=== PATIENT | male | born 1965 | race Caucasian/White ===

== ENCOUNTER 2023-12-08 10:03 | Emergency (ER) | payer OTHER, SELFPAY ==
--- NOTE | ~2023-12-08 | CT_ITS ---
EXAMINATION: CT lumbar spine wo con DATE: 12/08/2023 14:09 INDICATION: Low back pain TECHNIQUE: Computed tomography (CT) of the lumbar spine was performed without intravenous contrast. A utomated exposure control and iterative reconstruction technique were employed. The dose-length produ ct was 488.85 mGy-cm. COMPARISON: None FINDINGS: Alignment is normal. Vertebral body heights are normal. No fracture or pars intra-articular is defects.. Lucent hemangiomas with thickened internal vertical trabecular pattern at L1 and L4. Mi ld disc height loss at T12-L1. Remaining lumbar disc heights are normal. There are few diverticula al francoise the visualized sigmoid colon without adjacent comparison to suggest diverticulitis. Paravertebral soft tissues are unremarkable. The following disc levels are specifically discussed: T11-T12: The disc does not extend beyond the endplate margin. There is mild bilateral facet joint ost eoarthritis. There is no neural foraminal stenosis. There is no central canal stenosis. T12-L1: The disc does not extend beyond the endplate margin. There is mild bilateral facet joint oste oarthritis. There is no neural foraminal stenosis. There is no central canal stenosis. L1-L2: Disc is mildly bulging. There is mild bilateral facet joint osteoarthritis. There is no neural foraminal stenosis. There is no central canal stenosis. L2-L3: Disc is mildly bulging. There is mild bilateral facet joint osteoarthritis. There is mild bila teral neural foraminal stenosis. There is minimal central canal stenosis. L3-L4: Disc is mildly bulging. There is mild bilateral facet joint osteoarthritis. There is mild bila teral neural foraminal stenosis. There is minimal central canal stenosis. L4-L5: Disc is bulging. There is mild bilateral facet joint osteoarthritis. There is mild bilateral n eural foraminal stenosis. There is mild central canal stenosis. L5-S1: Disc is bulging. There is mild left and moderate right facet joint osteoarthritis. There is no neural foraminal stenosis. There is no central canal stenosis. IMPRESSION: 1. Mild lumbar spondylosis. No acute osseous abnormality. Reviewed, dictated and finalized at location A.
[2023-12-08 10:08] VITALS: BP 185/104; PULSE 90; RESP 18; TEMP 36.1; O2SAT 97
--- NOTE | 2023-12-08 13:19 | ED.BACK ---
HPI - Back Pain/Injury General Chief Complaint: Back Pain/Injury Stated Complaint: back pain Time Seen by Provider: 12/08/23 12:01 History of Present Illness HPI Narrative: Patient is a 58-year-old male presenting with low back pain. Patient states that approximately a month ago he bent over and lifted something heavy and felt a pop in his right lower back. Since that time he has had worsening right-sided lower back pain that sometimes shoots into his right hip and down his leg. No numbness or weakness, saddle anesthesia, bladder bowel incontinence, fevers. States that he had low back pain several years ago that was treated with tizanidine that he has been taking with minimal relief. Related Data Allergies Allergy/AdvReac Type Severity Reaction Status Date / Time No Known Allergies Allergy Unverified 03/31/17 10:34 Review of Systems Review of Systems: All systems reviewed & are unremarkable except as noted in HPI and below Exam Narrative: GENERAL: Well-appearing, in no acute distress, pleasant cooperative HEAD: Normocephalic, atraumatic. EYES: PERRLA and EOMI. ENT: Grossly unremarkable NECK: Supple. CHEST: No respiratory distress. HEART: Regular rate and rhythm EXTREMITIES: Normal range of motion. SKIN: Warm, dry, no rash. BACK: +tenderness lumbar spine into right paraspinal muscles and R upper buttocks NEURO: No focal deficits. Alert and oriented x3. 5/5 strength BLE, no sensory deficits PSYCH: Normal mood and affect. Course Vital Signs Vital signs: Vital Signs Oxygen Delivery Room Air 12/08/23 10:05 Temperature 98.4 F 12/08/23 15:15 Pulse Rate 82 12/08/23 15:15 Respiratory Rate 18 12/08/23 15:15 Blood Pressure 175/97 H 12/08/23 15:15 Pulse Oximetry 100 12/08/23 15:15 Oxygen Delivery Room Air 12/08/23 10:05 MDM - Back Pain/Injury MDM Narrative Medical decision making narrative: 58-year-old female presenting with lower back pain. Vitals stable. Exam remarkable for the above. Neurologically intact. Denies any red flag symptoms but given his age new onset low back pain, will obtain CT lumbar spine. Will treat with IM Toradol and p.o. Percocet. Likely discharge with Medrol Dosepak. CT lumbar spine without acute abnormalities. Patient is asking to go home which I think is reasonable. Will send for Medrol Dosepak, advised Tylenol as well. He can use as muscle relaxers as prescribed. Recommend close PCP follow-up. Appropriate return precautions given. Discharged in stable condition. Differential Diagnosis Differential diagnosis: Likely lumbar radiculopathy, sciatica and strain of lumbar region Medical Records Attestation: I reviewed the patient's medical records. Imaging Data Radiologist's impression: ITS Impressions Lumbar Spine CT 12/08/23 14:24 IMPRESSION: 1. Mild lumbar spondylosis. No acute osseous abnormality. Critical Care Time Critical Care Time Critical Care Time: No Discharge Plan Discharge Clinical Impression: Low back pain Patient Disposition: Home, Self-Care Condition: Stable Instructions: Antibiotic Form, Back Pain (ED) Additional Instructions: Please take the steroids as prescribed. We also recommend using Tylenol for pain control. You may use your muscle relaxers as prescribed. Follow-up closely with your PCP. If your symptoms suddenly worsen or other concerning symptoms return, please return to the ER. Prescriptions: New methylprednisolone [Medrol (Juaquin)] 4 mg tablets,dose pack See Rx Instructions .ROUTE .COMPLEX Qty: 21 0RF Rx Instructions: orally per package directions Follow-up/Referrals: PHYSICIAN,TILE SETTER SUPERVISOR [Primary Care Provider] -
[2023-12-08] MEDS: oxyCODONE/ACETAMINOPHEN (*CRX) 5-325 MG TABLET 1 TABLET PO (14:43)
[2023-12-08] MEDS: KETOROLAC 30 MG/ML VIAL (*BKC) IM (14:44)
[2023-12-08 15:15] VITALS: BP 175/97; PULSE 82; RESP 18; TEMP 36.9; O2SAT 100
== END 2023-12-08 15:16 | disposition home or self-care (01) ==
PROVIDERS: Emergency Provider Emergency Medicine; Referring Provider Emergency Medicine
DX: M54.50 Low back pain, unspecified (principal); M47.816 Spondylosis without myelopathy or radiculopathy, lumbar region
CPT/HCPCS: 72131; 96372; 99284; A9270; J1885

== ENCOUNTER 2025-02-01 08:48 | Inpatient (IN) | payer OTHER, SELFPAY ==
[2025-02-01] VITALS (11 sets, daily range): BP systolic 128–163; BP diastolic 80–96; PULSE 63–88; RESP 15–18; TEMP 35.7–36.4; O2SAT 95–99; BMI 25.7
--- NOTE | ~2025-02-01 | CT_ITS ---
CT of the Abdomen and Pelvis: Indication: Abdominal pain Technique: 2.5 mm axial scans were obtained through the abdomen and pelvis following intravenous adm inistration of 100 cc of Omnipaque 350. Dose reduction technique was used on this scan by utilizing a utomated exposure control and iterative reconstruction technique. The dose-length product (DLP) was 5 39.83 mGy-cm. Findings: Scans through the lung bases demonstrate right middle lobe atelectasis. The liver, spleen, pancreas, gallbladder, adrenals and kidneys are within normal limits. There are at herosclerotic calcifications of the aorta. No lymphadenopathy. There is wall thickening of sigmoid colon with mild pericolonic inflammatory change, compatible with acute sigmoid diverticulitis. No abscess or free air evident. No bowel obstruction. Images through the pelvis were performed. Urinary bladder unremarkable. No pelvic mass. No ascites. Impression: Acute sigmoid diverticulitis. No abscess or free air. Reviewed, dictated and finalized at location . Impression: Acute sigmoid diverticulitis. No abscess or free air.
--- OUTSIDE RECORDS SUMMARY | 2025-02-01 08:52 | XMS_ITS | Clinical Summary ---
Author Organization [facility] Address [address] [place] [address] Phone Care Team Providers Care Card Fixer Name Role Phone Unavailable Primary Care Provider Unavailabl e Allergies No known active allergies Medications losartan (COZAAR) 50 MG Tablet TAKE ONE TABLET BY MOUTH EVERY DAY FOR BLOOD PRESSURE 10/08/2023 Active Xarelto 20 MG Tablet TAKE ONE TABLET BY MOUTH EVERY DAY WITH FOOD 10/08/2023 Active Immunizations Immunization Administration Dates Next Due Influenza Vaccine, Quadrivalent, PF 07/02/2017 Social History Tobacco Use Types Packs/Day Years Used Date Smoking Tobacco: Never Smokeless Tobacco: Never Alcohol Use Standard Drinks/Week Comments Yes 0 (1 standard drink = 0.6 oz pur e alcohol) couple beers daily Sexually Active Control Partners Comments Never Sex and Gender Information Value Date Recorded Sex Assigned at Not on file Legal Sex Male 2:58 PM CDT Gender Identity Not on file Sexual Orientation Not on file Last Filed Vital Signs Vital Sign Reading Time Taken Comments Blood Pressure 138/82 10/10/2023 9:38 AM DIRECTOR SECURITY MANAGEMENT Pulse 82 10/10/2023 9:38 AM DIRECTOR SECURITY MANAGEMENT Temperature - - Respiratory Rate 20 10/10/2023 9:38 AM DIRECTOR SECURITY MANAGEMENT Oxygen Saturation 98% 10/10/2023 9:38 AM DIRECTOR SECURITY MANAGEMENT Inhaled Oxygen Concentration - - Weight 81.6 kg (180 lb) 10/10/2023 9:38 AM DIRECTOR SECURITY MANAGEMENT Height 180.3 cm (5' 11 ) 10/10/2023 9:38 AM DIRECTOR SECURITY MANAGEMENT Body Mass Index 25.1 10/10/2023 9:38 AM DIRECTOR SECURITY MANAGEMENT Plan of Treatment Health Maintenance Due Date Last Done Comments Hepatitis C Virus (HCV) Screening 1965 TdaP Immunization 1965 Colonoscopy 2009 Colorectal Cancer Screening 2009 Cologuard 2014 Immunochemical Fecal Occult Blood 2014 Pneumococcal Immunization (5 0+ years) (1 of 1 - PCV) 2014 Zoster Immunization (1 of 2) 2014 PSA Discussion 2019 Influenza Immunization (#1) 2024 07/02/2017 SARS-COV-2 Immunization ( season) 2024 04/24/2021, 03/27/2021 Respiratory Syncytial Virus (RSV) Immunization (Adult) (1 - 1-dose 75+ series) 2039 Hepatitis B Immunization Aged Out No longer eligible based on patient's age to complete this topic Meningococcal Immunization (ACWY) Aged Out No longer eligible b ased on patient's age to complete this topic Rotavirus Immunization Aged Out No lo nger eligible based on patient's age to complete this topic Insurance MEDICAID [facility]
--- OUTSIDE RECORDS SUMMARY | 2025-02-01 08:52 | XMS_ITS | Data Portability ---
Author Organization [facility] [employer] Main Office Address [address] [place] [address] Care Team Providers Care Drafter Mechanical Name Role Phone PHOENIX REMY Primary Care Provider [phone] PHOENIX REMY Referring Provider KOLTON ZAMUDIO General Surgeon Assessment No assessment recorded. Plan of Treatment Reminders Order Date Submit Date Provider Last Modified By Organization Details Last Modified Time Details Appointments None recorded . Lab urinalys is, dipstick 2022 023 [email or web address] [facility] [facility] [address], [place], [address], 3 10:05:00 Referral None recorded . Procedures None recorded . Surgeries None recorded . Imaging US, bladder 2022 023 [email or web address] [facility] [facility] [address], [place], [address], 3 10:06:08 Medication Orders None recorded . Patient TargetsNo targets recorded. Patient InstructionsNo instructions recorded. Reason for Referral None Reported. Results Created Date Observation Date Name Description Value Unit Range Abnormal Flag Note LastModifiedBy Organization Detail LastModifiedTime 05/01/20 23 05/01/2023 urina lysis , dipst ick Leukocytes (reference range: negative feli/ l) Negati ve Not Available [facility] [address] [facility] [address], [place], [address], 05/01/2023 09:50:17 05/01/20 23 05/01/2023 urina lysis , dipst ick Nitrite (reference rage: negative mg/dl) negati ve Not Available [facility] [address], [place], [address], 05/01/2023 09:50:17 05/01/20 23 05/01/2023 urina lysis , dipst ick Urobilinogen (reference range: 0.2-1 mg/dl) 0.2 Not Available [facility] [address], [place], [address], 05/01/2023 09:50:17 05/01/20 23 05/01/2023 urina lysis , dipst ick Protein (reference range: negative mg/dl) Small Not Available [facility] [address], [place], [address], 05/01/2023 09:50:17 05/01/20 23 05/01/2023 urina lysis , dipst ick pH (reference range: 5-7) 5.5 Not Available [facility] [address] [facility] [address], [place], [address], 05/01/2023 09:50:17 05/01/2005/01/2023 urina lysis , dipst ick Blood (reference range: negative Meño/ l) Negati ve Not Available [facility] [address] [facility] [address], [place], [address], 05/01/2023 09:50:17 05/01/2005/01/2023 urina lysis , dipst ick Specific [place] (reference range: 1.005-1.030) 1.020 Not Available [facility] [address], [place], [address], 05/01/2023 09:50:17 05/01/20 23 05/01/2023 urina lysis , dipst ick Ketone (reference range: negative mg/dl) Trace Not Available [facility] [place] [address], [place], [address], 05/01/2023 09:50:17 05/01/20 23 05/01/2023 urina lysis , dipst ick Bilirubin (reference range: negative mg/dl) Small Not Available [facility] [place] [address], [place], [address], 05/01/2023 09:50:17 05/01/20 23 05/01/2023 urina lysis , dipst ick Glucose (reference range: negative mg/dl) Negati ve Not Available [facility] [place] [address], [place], [address], 05/01/2023 09:50:17 05/01/20 23 05/01/2023 urina lysis , dipst ick Appearance Clear Not Available [facility] [place] [address], [place], [address], 05/01/2023 09:50:17 05/01/20 23 05/01/2023 urina lysis , dipst ick Color Yellow Not Available [facility] [place] [address] [facility] [address], [place], [address], 05/01/2023 09:50:17 08/08/20 22 05/29/2022 raven BOSWELL No observ ation record ed. [id number] Not Available 11/20/2022 17:01:56 10/01/19 23 10/01/2022 raven STEELE, w/o contr ast [facility] [address], [place] [address] Patiarcadio t Name: JULISSA KEARNSN Access ion #: [id number] Sex: M : 1964 0 Locati on: RAD Attend ing Physic justin: KOLTON BETHEA Orderi ng Physic justin: KOLTON BETHEA Exam Date: 023 2:39 PM Exam Name: MRI SHOULD ER RT WO Admitt ing Diagno sis(es ): RADIOL OGY REPORT - FINAL EXAM: MRI SHOULD ER RT WO HISTOR Y: right should er pain COMPAR DAMIAN: None Availa ble. TECHNI QUE: Multip lanar multis equenc e imagin g of the right should er is perfor med withou t intrav enous contra st. FINDIN GS: Osseou s:Tosha omic alignm ent. No eviden ce of a fractu re or destru ctive proces s. Subcho ndral reacti ve change s at the greate r tubero sity. Joint space: Unrema rkable Page 1 of 2 [facility] Patiarcadio t Name: JULISSA KEARNSN Access ion #: [id number] Sex: M : 1964 0 Exam Date: 023 2:39 PM Exam Name: MRI SHOULD ER RT WO Admitt ing Diagno sis(es ): Labrum :Gross ly intact AC-veronica nt:AC joint hypert rophic change s, type 2 acromi on, modera te subacr omial outlet narrow ing. Rotato r cuff:D iffuse tendin osis of the supras pinatu s tendon , possib le rim rent tear at the supras pinatu s tendon insert ion site, image 5-13 and 6-13 versus averag ing with a subcho ndral cyst. The subsca pulari s and infras pinatu s as well as the teres minor are intact Bicipi kaylee labral tendon :Incom pletel y visual ized, grossl y intact IMPRES BYRON: See above. Create d and electr onical ly signed by: Aquilino vela MD Signed Date: 023 8:13 PM (CT) Dictat ed by: Aquilino vela MD DD: 023 8:13 PM (CT) DT: 023 8:13 PM (CT) Page 2 of 2 [id number] [facility] ([facility] [address] [facility], [place], [address], 11/20/2022 17:01:56 05/01/20 23 05/01/2023 US, bladd er No observ ation record ed. [facility] [place] [address] [facility] [address], [place], [address], 05/02/2023 14:56:50 Result Notes None recorded. Problems Name Problem SNOMED Code Status Onset Date Resolution Date Notes Provider Name and Address Organization Details Recorded Time Ingrowing nail of toe of left foot 9529236695022 9107 Active 2021 Not Available [facility] 3 17:00:22 Pain of right shoulder joint 9502600966621 9100 Active 2021 Not Available [facility] 3 17:00:22 Closed fracture of distal end of radius 56015531 Active Not Available [facility] 3 17:00:22 Dog bite - wound 220263571 Active Not Available [facility] 3 17:00:22 Ear problem 205081402 Active 2020 Not Available [facility] 3 17:00:22 Left Achilles tendinitis 3271753999888 02 Active 2020 Not Available [facility] 3 17:00:22 Impingemen t syndrome of right shoulder region 7912256929359 02 Active 2021 Not Available [facility] 3 17:00:22 Disorder of eye 476166529 Active 2020 Not Available [facility] 3 17:00:22 Tendinitis of foot 720540242 Active 2020 Not Available [facility] 3 17:00:23 Fracture of forearm 02299494 Active Not Available [facility] 3 17:00:23 Acute gout 061431433 Active 2020 Not Available [facility] 3 17:00:23 Hypospadia s 410266293 Active 2022 Diana Walker MA null, [facility] 3 09:49:57 Penile hypospadia s 673368094 Active 2022 Diana Walker MA null, [facility] 3 09:50:12 Problem Notes None recorded. Procedures Surgical History Date Name Laterality Status Provider Name and Address Organization Details Recorded Time Appendectomy completed Not Available [facility] 023 16:59:24 Tonsillectomy completed Not Available [facility] 11/20/2022 16:59:24 Imaging Results Imaging Date Name Status LastModified by Organiz ation Details LastModified Time 10/01/2022 MRI, shoulder, w/o contrast completed [id number] [facility] (Imaging) [address] [place], [address], 11/20/2022 17:01:56 05/29/2022 XR, shoulder completed [id number] Information not available 11/20/2022 17:01:56 05/01/2023 US, bladder completed [facility] [place] [address] [facility] [address], [place], [address], 05/02/2023 14:56:50 Procedure Notes None recorded. Medical Equipment None Reported. Allergies No known drug allergies Medications Name Sig Start Date Stop Date Status Note LastModified by Organization Details LastModified Time nifedipine ER 30 mg tablet,exte nded release 24 hr TAKE ONE TABLET BY MOUTH EVERY DAY FOR BLOOD PRESSURE active Not Available Not Available No t Available amoxicillin 500 mg capsule 05/11 completed Not Available Not Available Not Available azithromyci n 250 mg tablet 09/12 completed Not Available Not Available Not Available tizanidine 4 mg tablet 05/01 completed Not Available Not Available Not Available clarithromy lucio 500 mg tablet 12/26 completed Not Available Not Available Not Available hydrocodone 5 mg-acetamin ophen 325 mg tablet TAKE ONE TABLET BY MOUTH EVERY DAY NEEDED FOR PAIN 2022 active Not Available Not Available Not Avai lable prednisone 20 mg tablet 12/26 completed Not Available Not Available Not Available Viagra 50 mg tablet Take 1 TABLET 1 HOUR PRIOR TO SEXUAL ACTIVITY DIRECTED, BUT NOT TO EXCEED MORE THAN 1 IN 24 HOURS. MUST LAST 30 DAYS 05/01 completed Not Available Not Available Not Available metronidazo le 500 mg tablet TAKE ONE TABLET BY MOUTH EVERY 8 HOURS AFTER MEALS FOR 5 DAYS 05/01 completed Not Available Not Available Not Available nifedipine ER 30 mg tablet,exte nded release 05/01 completed Not Available Not Available Not Available allopurinol 100 mg tablet 05/01 completed Not Available Not Available Not Available ciprofloxac in 500 mg tablet TAKE ONE TABLET BY MOUTH EVERY TWELVE HOURS AFTER MEALS FOR 5 DAYS 05/01 completed Not Available Not Available Not Available tramadol 50 mg tablet 05/11 completed Not Available Not Available Not Available ketorolac 10 mg tablet 09/12 completed Not Available Not Available Not Available oxycodone-a cetaminophe n 5 mg-325 mg tablet 12/26 completed Not Available Not Available Not Available dicyclomine 20 mg tablet 05/01 completed Not Available Not Available Not Available Kenalog 10 mg/mL suspension for injection In office injection administe red by the provider 05/01 completed ND: 0003- 0494- 20 Not Available Not Available Not Available baclofen 10 mg tablet 08/08 completed Not Available Not Available Not Available benzonatate 100 mg capsule 12/26 completed Not Available Not Available Not Available hydrocodone 7.5 mg-acetamin ophen 325 mg tablet 05/11 completed Not Available Not Available Not Available oseltamivir 75 mg capsule 12/26 completed Not Available Not Available Not Available indomethaci n 50 mg capsule 08/08 completed Not Available Not Available Not Available gabapentin 300 mg capsule 05/01 completed Not Available Not Available Not Available polyethylen e glycol 3350 17 gram/dose oral powder 09/12 completed Not Available Not Available Not Available levofloxaci n 750 mg tablet TK 1 T PO QD FOR 10 DAYS 12/26 completed Not Available Not Available Not Available colchicine 0.6 mg tablet Take 3 tablets by oral route as directed. active Not Available Not Available No t Available cefdinir 300 mg capsule TK ONE C PO BID 12/26 completed Not Available Not Available Not Available naproxen 500 mg tablet TAKE ONE TABLET BY MOUTH TWICE DAILY 05/01 completed Not Available Not Available Not Available amoxicillin 875 mg-potassiu m clavulanate 125 mg tablet 05/11 completed Not Available Not Available Not Available ropivacaine (PF) 5 mg/mL (0.5 %) injection solution In office injection administe red by the provider 05/01 completed [facility] [phone] Not Available Not Available Not Available lidocaine 5 % topical ointment 05/01 completed Not Available Not Available Not Available Virtussin AC 10 mg-100 mg/5 mL oral liquid 12/26 completed Not Available Not Available Not Available Vitals Date Recorded Body mass index (BMI) Body height Heart rate Body weight Systolic blood pressure Diastolic blood pressure Provider Name and Address Organization Details Last Updated DateTime 2 25.8 kg/m2 180.34 cm 87 /min 54714.5 9 g 159 mm[Hg] 97 mm[Hg] Not Available [facility] 3 16:59:26 Date Recorded Body mass index (BMI) Body height Body weight Provider Name and Address Organization Details Last Updated DateTime 08/08/2022 28.1 kg/m2 172.72 cm 13622.59 g Not Available [facility] 11/20/2022 16:59:27 Date Recorded Body height Provider Name an d Address Organization Details Last Updated DateTime 09/12/2022 172.72 cm Not Available [facility] 3 16:59:27 Date Recorded Body height Provider Name an d Address Organization Details Last Updated DateTime 10/10/2022 172.72 cm Not Available [facility] 3 16:59:27 Date Recorded Body height Provider Name an d Address Organization Details Last Updated DateTime 05/01/2023 172.72 cm CHERELLE Ridley - [facility] [employer] 05/01/2023 09:47:05 Date Recorded Body mass index (BMI) Body weight Body temperature Oxygen saturation Oxygen saturation in Arterial blood by Pulse oximetry Heart rate Systolic blood pressure Diastolic blood pressure Provider Name and Address Organization Details Last Updated DateTime 3 0.2 kg/m2 453.59 g 98.2 [degF] 97 % 97 % 100 /min 146 mm[Hg] 88 mm[Hg] MORRIS Sheffield [place] - [employer] 3 09:49:54 Social History Question Answer Notes LastModified by [employer] Details LastModified Time Tobacco Smoking Status Never Smoker Not Available [facility] 11/20/2022 16:59:12 What Is Your Level Of Caffeine Consumption? None Information not available 05/01/2023 What Was The Date Of Your Most Recent Tobacco Screening? 05/01/2023 [email or web address] Information not available 05/01/2023 Have You Ever Been Counseled For Unhealthy Alcohol Use? No Information not available 05/01/2023 Has Tobacco Cessation Counseling Been Provided? No Information not available 05/01/2023 Sex: Unknown Functional Status Question Answer Note LastModified by [employer] Details LastModified Time Do you use any illicit or recreational drugs? No Information not available 05/01/2023 Do you or have you ever used any other forms of tobacco or nicotine? No Information not available 05/01/2023 What is your level of alcohol consumption? 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 Family History Relationship Description Onset Age of this Age Resolved Age Notes LastModified by Organization Details LastModified Time Unspecified Relation Heart disease FATHER S SIDE OF FAMILY [id number] Not available 11/20/2022 16:59:24 Unspecified Relation Family history of malignant neoplasm mom side [id number] Not available 11/20/2022 16:59:24 Brother Family history of stroke [id number] Not available 11/20/2022 16:59:24 Father Family history of stroke [id number] Not available 11/20/2022 16:59:24 Notes:STROKE-BROTHER, CANCER -MOTHERS SIDE OF FAMILY Medical History Condition Response CYSTITIS N BLINDNESS N RHEUMATIC FEVER N KIDNEY STONES N BLADDER PROBLEMS N Enlarged Prostate N MRSA N LUNG DISEASE/DISORDER N HISTORY OF DRUG ABUSE N RADIATION / CHEMOTHERAPY N COPD N BLOOD DISEASES N SHINGLES N BOWEL PROBLEMS N DEPRESSION (INCLUDING POST ) N FAILED BACK SYNDROME N STROKE/TIA N THYROID DISEASE N BENIGN PROSTATIC HYPERPLASIA N OBESITY N GERD/NAUSEA N ANEURYSM N URINARY/BLADDER/KIDNEY PROBLEMS N Increased Urination N CORONARY ARTERY DISEASE (CAD) N Do you have Advance directive? N USE OF BLOOD THINNERS N EMPHYSEMA N GASTROINTESTINAL DISORDER N GASTROINTESTINAL BLEEDING N BLOOD CLOTS N Difficulty Urinating N ASTHMA N Abdominal Pain N CATARACTS N ARTERIAL INSUFFICIENCY N ERECTILE DYSFUNCTION N GI PROBLEMS N Low Testosterone N AIDS/HIV N LIVER DISEASE N MALE HYPOGONADISM N HYPERTENSION Y TOURETTE'S N BLOOD TRANSFUSION N ANEMIA/BLOOD DISORDER N TUBERCULOSIS N GLAUCOMA N SLEEP APNEA N BACK INJECTIONS N INFECTIOUS DISEASE N HEART ARRHYTHMIA N PROSTATE N INSOMNIA N ESRD N HIGH CHOLESTEROL / HYPERLIPIDEMIA N HYPERTHYROIDISM N UTI N PVD N EDEMA N HYPOTHYROIDISM N BACK / NECK PROBLEMS N HAVE YOU BEEN HOSPITALIZED OR SEEN IN [facility] ER IN THE PAST YEAR ? N DIALYSIS N POLYCYSTIC OVARIES N OSTEOPOROSIS N ARTHRITIS N NO SIGNIFICANT PAST MEDICAL HISTORY N DIABETES, TYPE N VON WILLIBRAND'S DISEASE N PARKINSON N incontinence N POST LAMINECTOMY SYNDROME N HEPATITIS / LIVER DISEASE N GOUT N SLEEP DISORDER N ALZHEIMER'S DISEASE N HERPES N HEADACHES/MIGRAINES N SEIZURES/EPILEPSY N PACEMAKER N HEART MURMUR N DIZZINESS N KIDNEY DISEASE N HEART DISEASE/HEART PROBLEMS N MULTIPLE SCLEROSIS N NEUROPSYCHOLOGICAL N CANCER: SPECIFY N ANESTHESIA COMPLICATIONS N ATRIAL FIBRILLATION N AUTOIMMUNE DISEASE N Past Encounters Encounter ID Performer Location Encounter Start Date Encounter Closed Date Diagnosis/Indication Diagnosis SNOMED-CT Code Diagnosis ICD10 Code Diagnosis Note [id number] Orlando Kiser DPM [facility] [place] [address] [place] [phone] 0 05/11/2021 00:00:00 05/11/2021 10:53:51 [id number] Orlando Kiser DPM [facility] [place] [address] [place] [id number] 05/22/2021 00:00:00 05/22/2021 13:13:41 [id number] Orlando [facility]iser DPM [facility] [place] [address] [place] [id number] 06/11/2021 00:00:00 06/11/2021 14:10:01 [id number] [facility] [address] [place] [id number] 10/22/2021 00:00:00 10/22/2021 10:00:07 [id number] Orlando [facility]iser [facility] [address] [place] [id number] 0 11/05/2021 00:00:00 11/05/2021 09:47:19 [id number] Kolton Hennessy MD [facility] [address] [address] 08/08/2022 00:00:00 08/08/2022 13:53:55 [id number] Kolton Hennessy MD [facility] [address] [phone] 09/12/2022 00:00:00 09/18/2022 09:59:14 [id number] Kolton Hennessy MD [facility] [address] [address] 10/10/2022 00:00:00 10/20/2022 14:24:35 [id number] Mina Rincon MD [facility] [address] [place] [id number] 1 05/01/2023 09:30:58 05/01/2023 10:06:08 Penile hypospadias 972234352 Q54.1 The patient will need to have urethral dilation and/or meatotomy to place altamirano Will try to coordinate it close to his colon surgery . Health Concerns Section Related Observation LastModified by Organization Detai ls LastModified Time None Recorded Concern Status LastModified by Organization Details LastModified Time None Recorded Advance Directives Directive None Recorded Payers Encounter Date Sequence Insurance Name Policy Number Policy Harp Covered Member ID Harp Member ID Guarantor Name 05/01/2023 1 [facility] - DOS ON OR AFTER 21 (MEDICAID REPLACEMENT - HMO) Rosario Kearns [id number] Rosario Kearns Notes Date Note Type Note Provider Name and Address Organization Details Recorded Time 05/01/2023 text/html 57 yo male with hypospadias. No difficulty voiding. Recently he was to undergo a colon resection. They unable to place a altamirano so it was canceled and he was referred here. Mina Rincon MD [address] [place] [address], [place], [address], [place] - [facility] [employer] [facility] [employer] 05/01/2023 10:05:27
--- OUTSIDE RECORDS SUMMARY | 2025-02-01 08:52 | XMS_ITS | CONTINUITY OF CARE DOCUMENT ---
Author Name linus barriga Address Unknown Organization [facility] Address [address] [facility] [address] [place] [address] Phone [phone] Care Team Providers Care Urologist Name Role Phone Dale PADILLA, Lucas Unavailable CARMENZA PADILLA, FRANCOIS Unavailable [phone] INSURANCE PROVIDERS Payer name Policy type / Coverage type Jaye red alliance party ID [employer] Medicaid 1 [id number]
--- OUTSIDE RECORDS SUMMARY | 2025-02-01 08:52 | XMS_ITS | Continuity of Care Document ---
Author Organization [facility] [place] [address] [place] [address] [place] [address] Phone Care Team Providers Care Stick Welder Name Role Phone Wiley Hayward Unavailable Unavailable Procedures Procedure Date Remove Foreign Body From Eye Advance Directives Directive Yes / No Effective Date File Name No Information Encounters Encounter Description Practice Location Reason(s) For Visit Diagnoses Date Provider Providers Copied on Encounter [facility], [address] [place] [address] [address], [place], [place], [id number], [place] tel:[phone] [facility] No Information [address] Yes[address] Jama. [address] [place] [address], [facility], [place]. tel:[phone] Referring Provider: Wiley jolley, [address], [facility]. tel:[phone] Family History Family Member Type Diagnosis Age At Onset No Information Payers Payer name Insurance type Covered democrat ID Authoriza tion(s) Medicaid [facility] [id number] Social History Type Description Quantity Date Captured [...]
--- OUTSIDE RECORDS SUMMARY | 2025-02-01 08:52 | XMS_ITS | Data Portability ---
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 Plan of Treatment Reminders Order Date Submit Date Provider Last Modified By Organization Details Last Modified Time Details Appointments None recorded . Lab None recorded . Referral general surgeon referral 2024 025 [facility] Scheduling, [address] [place], [address], 5 12:49:53 Procedures None recorded . Surgeries None recorded . Imaging None recorded . Medication Orders amoxicil aide 875 mg-potas sium clavulan ate 125 mg tablet 2024 025 [facility], [address] [place] [address], [id number], 5 15:43:52 amoxicil aide 875 mg-potas sium clavulan ate 125 mg tablet 2024 025 [facility], [address] [place] [address], [id number], 5 11:22:06 ergocalc iferol (vitamin D2) 1,250 mcg (50,000 unit) capsule 2023 024 [facility], [address] [place] [address], [id number], 5 11:18:17 tizanidi ne 4 mg tablet 2023 [facility], [address] [place] [address], [id number], 5 17:07:13 losartan 100 mg-hydro chloroth iazide 12.5 mg tablet 2023 [facility], [address] [place] [address], [id number], 5 14:36:55 losartan 100 mg-hydro chloroth iazide 12.5 mg tablet 2023 [facility], [address] [place] [address], [id number], 13:18:53 losartan 50 mg tablet 2023 [facility], [address] [place] [address], [id number], 17:21:26 losartan 50 mg tablet 2023 024 [facility], [address] [place] [address], [id number], 17:07:06 Patient TargetsNo targets recorded. Patient Instructions Encounter Date Encounter Id Patient Instructions Last Modified By Organization Details Last Modified Time 02/04/2024 [id number] learning about high blood sugar Not available 02/04/2024 16:14:47 learning about high blood pressure [email or web address] Not available 02/04/2024 16:14:46 03/30/2024 [id number] learning about high blood sugar [email or web address] Not available 03/30/2024 17:21:27 learning about high blood pressure Not available 03/30/2024 17:21:27 06/30/2024 [id number] learning about high blood sugar [email or web address] Not available 06/30/2024 17:43:56 A healthy lifestyle: care instructions [email or web address] Not available 07/01/2024 14:20:15 back care and preventing injuries: care instructions [email or web address] Not available 06/30/2024 17:43:55 learning about high blood pressure [email or web address] Not available 06/30/2024 17:43:55 01/10/2025 [id number] learning about high blood sugar [email or web address] Not available 01/10/2025 17:39:09 folate deficienc y anemia: care instructions [email or web address] Not available 01/10/2025 17:39:09 learning about high blood pressure [email or web address] Not available 01/10/2025 17:39:09 diverticulitis: care instructions Not available 01/10/2025 17:37:03 learning about diverticulosis and diverticulitis [email or web address] Not available 01/10/2025 17:37:03 Reason for Referral General Surgeon Referral for Diverticulitis recurrent diverticulitis, need for sigmoidectomy, need urology backup 2/2 hypospadias Referring Physician: Kolton Nevarez, General Surgery, Encounter Date: 01/25/2025 Results Created Date Observation Date Name Description Value Unit Range Abnormal Flag Note LastModifiedBy Organization Detail LastModifiedTime 06/15/20 24 06/16/2024 Compr ehens idalia metab olic 1999 panel - Serum or Plasm a glucose [mass/volume ] in serum or plasma 95 mg/dL low: 70mg/d Lhigh: 99mg/d L Gluco se 95 70 - 99 mg/dL [facility] INS[facility] ANCE BILL Not Available Not Available 11/29/2024 04:29:16 06/15/20 24 06/16/2024 Compr ehens idalia metab olic 1999 panel - Serum or Plasm a BUN 11 mg/dL low: 6mg/dL high: 24mg/d L BUN 11 6 - 24 mg/dL [facility] INSUR ANCE BILL Not Available Not Available 11/29/2024 04:29:16 06/15/20 24 06/16/2024 Compr ehens idalia metab olic 2000 panel - Serum or Plasm a creatinine [mass/volume ] in serum or plasma 1 mg/dL low: 0.76mg /dLhig h: 1.27mg /dL Creat inine 1.00 0.76 - 1.27 mg/dL [facility] INSUR ANCE BILL Not Available Not Available 11/29/2024 04:29:16 06/15/20 24 06/16/2024 Compr ehens idalia metab olic 1999 panel - Serum or Plasm a glomerular filtration rate/1.73 sq M.predicted [volume rate/area] in serum, plasma or blood by creatinine-b ased formula (CKD-epi) 87 mL/mi n/1.7 3 low: 59mL/m in/1.7 3 eGFR by CKD-E PI 87 >59 mL/mi n/1.7 3 [facility] INSUR ANCE BILL Not Available Not Available 11/29/2024 04:29:16 06/15/20 24 06/16/2024 Compr ehens idalia metab olic 2000 panel - Serum or Plasm a BUN/creatini ne ratio 11 low: 9high: 20 BUN/C reati nine Ratio 11 9 - 20 [facility] INSUR ANCE BILL Not Available Not Available 11/29/2024 04:29:16 06/15/20 24 06/16/2024 Compr ehens idalia metab olic 2000 panel - Serum or Plasm a sodium 137 mmol/ L low: 134mmo l/Lhig h: 144mmo l/L Sodiu m 137 134 - 144 mmol/ L [facility] INSUR ANCE BILL Not Available Not Available 11/29/2024 04:29:16 06/15/20 24 06/16/2024 Compr ehens idalia metab olic 2000 panel - Serum or Plasm a potassium 4 mmol/ L low: 3.5mmo l/Lhig h: 5.2mmo l/L Potas sium 4.0 3.5 - 5.2 mmol/ L [facility] INSUR ANCE BILL Not Available Not Available 11/29/2024 04:29:16 06/15/20 24 06/16/2024 Compr ehens idalia metab olic 2000 panel - Serum or Plasm a chloride 102 mmol/ L low: 96mmol /Lhigh : 106mmo l/L Chlor tonia 102 96 - 106 mmol/ L [facility] INSUR ANCE BILL Not Available Not Available 11/29/2024 04:29:16 06/15/20 24 06/16/2024 Compr ehens idalia metab olic 2000 panel - Serum or Plasm a CO2 22 mmol/ L low: 20mmol /Lhigh : 29mmol /L CO2 22 20 - 29 mmol/ L [facility] INSUR ANCE BILL Not Available Not Available 11/29/2024 04:29:16 06/15/2006/16/2024 Compr Undaens idalia metab olic 1999 panel - Serum or Plasm a calcium 9.2 mg/dL low: 8.7mg/ dLhigh : 10.2mg /dL Calci um 9.2 8.7 - 10.2 mg/dL [facility] INSUR ANCE BILL Not Available Not Available 11/29/2024 04:29:16 06/15/20 24 06/16/2024 Compr ehens idalia metab olic 1999 panel - Serum or Plasm a protein total 7.5 g/dL low: 6g/dLh igh: 8.5g/d L Prote in Total 7.5 6.0 - 8.5 g/dL [facility] INSUR ANCE BILL Not Available Not Available 11/29/2024 04:29:16 06/15/2006/16/2024 Compr Undaens idalia metab olic 1999 panel - Serum or Plasm a albumin 4.3 g/dL low: 3.8g/d Lhigh: 4.9g/d L Album in 4.3 3.8 - 4.9 g/dL [facility] INSUR ANCE BILL Not Available Not Available 11/29/2024 04:29:16 06/15/20 24 06/16/2024 Compr Undaens idalia metab olic 1999 panel - Serum or Plasm a globulin total 3.2 g/dL low: 1.5g/d Lhigh: 4.5g/d L Globu aide Total 3.2 1.5 - 4.5 g/dL [facility] INSUR ANCE BILL Not Available Not Available 11/29/2024 04:29:16 06/15/20 24 06/16/2024 Compr Undaens idalia metab olic 1999 panel - Serum or Plasm a bilirubin total 0.6 mg/dL low: 0mg/dL high: 1.2mg/ dL Bilir ubin Total 0.6 0.0 - 1.2 mg/dL [facility] INSUR ANCE BILL Not Available Not Available 11/29/2024 04:29:16 06/15/20 24 06/16/2024 Compr ehens idalia metab olic 1999 panel - Serum or Plasm a alkaline phosphatase 101 text: 44 - 121 IU/L Alkal ine Phosp hatas e 101 44 - 121 IU/L [facility] INSUR ANCE BILL Not Available Not Available 11/29/2024 04:29:16 06/15/20 24 06/16/2024 Compr ehens idalia metab olic 2000 panel - Serum or Plasm a AST 16 text: 0 - 40 IU/L AST 16 0 - 40 IU/L [facility] INSUR ANCE BILL Not Available Not Available 11/29/2024 04:29:16 06/15/20 24 06/16/2024 Compr ehens idalia metab olic 2000 panel - Serum or Plasm a ALT 12 text: 0 - 44 IU/L ALT 12 0 - 44 IU/L [facility] INSUR ANCE BILL Not Available Not Available 11/29/2024 04:29:16 06/15/20 24 06/16/2024 Compr ehens idalia metab olic 2000 panel - Serum or Plasm a Unknown Analyte [facility] at: 01 - [facility] [place] [phone] [facility] or: Anson sheets PhD, Not Available Not Available 04:29:16 06/15/20 24 06/15/2024 CBC W Auto Diffe renti al panel - Blood leukocytes [#/volume] in blood by automated count 8.9 text: 4.4 - 10.7 x10e9/ L WBC 8.9 4.4 - 10.7 x10E9 /L 06/15 1:17 PM CDT [facility] Not Available Not Available 01/10/2025 09:59:53 06/15/20 24 06/15/2024 CBC W Auto Diffe renti al panel - Blood neutrophils/ leukocytes in blood by automated count 66.4 % low: 44%hig h: 73% Neutr ophil s % 66.4 44.0 - 73.0 % 06/15 1:17 PM CDT [facility] Not Available Not Available 01/10/2025 09:59:53 06/15/20 24 06/15/2024 CBC W Auto Diffe renti al panel - Blood lymphocytes/ leukocytes in blood by automated count 22.1 % low: 20%hig h: 43% Lymph ocyte s % 22.1 20.0 - 43.0 % 06/15 1:17 PM CDT [facility] Not Available Not Available 01/10/2025 09:59:53 06/15/20 24 06/15/2024 CBC W Auto Diffe renti al panel - Blood monocytes/le ukocytes in blood by automated count 6.8 % low: 5%high : 13% Monoc ytes % 6.8 5.0 - 13.0 % 06/15 1:17 PM CDT [facility] Not Available Not Available 01/10/2025 09:59:53 06/15/2006/15/2024 CBC W Auto Diffe renti al panel - Blood eosinophils/ leukocytes in blood by automated count 3.4 % low: 0%high : 6% Eosin ophil s % 3.4 0.0 - 6.0 % 06/15 1:17 PM CDT [facility] Not Available Not Available 01/10/2025 09:59:53 06/15/20 24 06/15/2024 CBC W Auto Diffe renti al panel - Blood basophils/le ukocytes in blood by automated count 0.6 % low: 0%high : 2% Basop hils % 0.6 0.0 - 2.0 % 06/15 1:17 PM CDT [facility] Not Available Not Available 01/10/2025 09:59:53 06/15/2006/15/2024 CBC W Auto Diffe renti al panel - Blood immature granulocytes /leukocytes in blood by automated count 0.7 % high: 1% Immat ure Granu locyt es 0.7 <=1 % 06/15 1:17 PM CDT [facility] Not Available Not Available 01/10/2025 09:59:53 06/15/20 24 06/15/2024 CBC W Auto Diffe renti al panel - Blood neutrophils [#/volume] in blood by automated count 5.91 text: 2.01 - 7.14 x10e9/ L Neutr ophil Absol [place] 5.91 2.01 - 7.14 x10E9 /L 06/15 1:17 PM CDT [facility] Not Available Not Available 01/10/2025 09:59:53 06/15/2006/15/2024 CBC W Auto Diffe renti al panel - Blood lymphocytes [#/volume] in blood by automated count 1.96 text: 1.07 - 3.94 x10e9/ L Lymph ocyte s Absol [place] 1.96 1.07 - 3.94 x10E9 /L 06/15 1:17 PM CDT [facility] Not Available Not Available 01/10/2025 09:59:53 06/15/2006/15/2024 CBC W Auto Diffe renti al panel - Blood monocytes [#/volume] in blood by automated count 0.6 text: 0.26 - 1.07 x10e9/ L Monoc ytes Absol [place] 0.60 0.26 - 1.07 x10E9 /L 06/15 1:17 PM CDT [facility] Not Available Not Available 01/10/2025 09:59:53 06/15/20 24 06/15/2024 CBC W Auto Diffe renti al panel - Blood eosinophils [#/volume] in blood by automated count 0.3 text: 0 - 0.47 x10e9/ L Eosin ophil s Absol [place] 0.30 0 - 0.47 x10E9 /L 06/15 1:17 PM CDT [facility] Not Available Not Available 01/10/2025 09:59:53 06/15/20 24 06/15/2024 CBC W Auto Diffe renti al panel - Blood basophils [#/volume] in blood by automated count 0.05 text: 0 - 0.08 x10e9/ L Basop hils Absol [place] 0.05 0 - 0.08 x10E9 /L 06/15 1:17 PM CDT [facility] Not Available Not Available 01/10/2025 09:59:53 06/15/20 24 06/15/2024 CBC W Auto Diffe renti al panel - Blood erythrocytes [#/volume] in blood by automated count 5.16 text: 3.80 - 5.40 x10e12 /L RBC 5.16 3.80 - 5.40 x10E1 2/L 06/15 1:17 PM CDT [facility] Not Available Not Available 01/10/2025 09:59:53 06/15/2006/15/2024 CBC W Auto Diffe renti al panel - Blood hemoglobin [mass/volume ] in blood 16.2 text: 12.0 - 17.6 gm/dL Hemog lobin 16.2 12.0 - 17.6 gm/dL 06/15 1:17 PM CDT [facility] Not Available Not Available 01/10/2025 09:59:53 06/15/2006/15/2024 CBC W Auto Diffe renti al panel - Blood hematocrit [volume fraction] of blood by automated count 46.6 % low: 35.2%h igh: 51.7% Hemat ocrit 46.6 35.2 - 51.7 % 06/15 1:17 PM CDT [facility] Not Available Not Available 01/10/2025 09:59:53 06/15/20 24 06/15/2024 CBC W Auto Diffe renti al panel - Blood MCV [entitic mean volume] in red blood cells by automated count 90.3 fL low: 80.7fL high: 98.3fL MCV 90.3 80.7 - 98.3 fl 06/15 1:17 PM CDT [facility] Not Available Not Available 01/10/2025 09:59:53 06/15/2006/15/2024 CBC W Auto Diffe renti al panel - Blood MCH [entitic mass] by automated count 31.4 pg low: 26.7pg high: 34pg MCH 31.4 26.7 - 34.0 pg 06/15 1:17 PM CDT [facility] Not Available Not Available 01/10/2025 09:59:53 06/15/2006/15/2024 CBC W Auto Diffe renti al panel - Blood MCHC [entitic mass/volume] in red blood cells by automated count 34.8 text: 30.8 - 35.9 gm/dL MCHC 34.8 30.8 - 35.9 gm/dL 06/15 1:17 PM CDT [facility] Not Available Not Available 01/10/2025 09:59:53 06/15/2006/15/2024 CBC W Auto Diffe renti al panel - Blood erythrocyte [distwidth] in red blood cells by automated count 12.4 % low: 12.1%h igh: 14.9% RDW-C V 12.4 12.1 - 14.9 % 06/15 1:17 PM CDT [facility] Not Available Not Available 01/10/2025 09:59:53 06/15/2006/15/2024 CBC W Auto Diffe renti al panel - Blood platelets [#/volume] in blood by automated count 189 text: 153 - 416 x10e9/ L Plate let Count 189 153 - 416 x10E9 /L 06/15 1:17 PM CDT [facility] Not Available Not Available 01/10/2025 09:59:53 06/15/20 24 06/15/2024 CBC W Auto Diffe renti al panel - Blood platelet [entitic mean volume] in blood by automated count 7.8 fL low: 9.4fLh igh: 12.9fL low MPV 7.8 (L) 9.4 - 12.9 fl 06/15 1:17 PM CDT [facility] Not Available Not Available 01/10/2025 09:59:53 06/15/2006/15/2024 CBC W Auto Diffe renti al panel - Blood nucleated erythrocytes /leukocytes [ratio] in blood by automated count 0 text: <=0 /100 WBC NRBC 0.0 <=0 /100 WBC 06/15 1:17 PM CDT [facility] Not Available Not Available 01/10/2025 09:59:53 06/15/2006/15/2024 CBC W Auto Diffe renti al panel - Blood interpretati on and review of laboratory results Abnorm al Not Available Not Available 09:59:53 10/20/1910/26/2024 COMPL IANCE DRUG HAFSA SIS, UR summary report (summary) FINAL ===== ===== ===== ===== ===== ===== ===== ===== ===== ===== ===== ===== ===== === TOXAS SURE COMP DRUG HAFSA SIS,U R ===== ===== ===== ===== ===== ===== ===== ===== ===== ===== ===== ===== ===== === Test Resul t Flag Units Drug Prese nt Trama dol >3676 ng/mg creat O-Jeramy methy ltram adol >3676 ng/mg creat N-Jeramy methy ltram adol 345 ng/mg creat Sourc e of trama dol is a presc ripti on medic ation . O-jeramy methy ltram adol and N-jeramy methy ltram adol are expec arturo metab olite s of trama dol. ===== ===== ===== ===== ===== ===== ===== ===== ===== ===== ===== ===== ===== === Test Resul t Flag Units Ref Range Creat inine 136 mg/dL >=20 ===== ===== ===== ===== ===== ===== ===== ===== ===== ===== ===== ===== ===== === Decla red Medic ation s: Medic ation list was not provi ded. ===== ===== ===== ===== ===== ===== ===== ===== ===== ===== ===== ===== ===== === For clini anshul consu ltati on, pleas e call . ===== ===== ===== ===== ===== ===== ===== ===== ===== ===== ===== ===== ===== === Not Available [facility] ([facility]) [address] [facility] [address], [place], [address], 10/26/2024 19:08:34 10/20/1910/26/2024 COMPL IANCE DRUG HAFSA SIS, UR pdf . Not Available [facility] ([facility]) [address] [facility] [facility] [address], [place], [address], 10/26/2024 19:08:34 Result Notes None recorded. Problems Name Problem SNOMED Code Status Onset Date Resolution Date Notes Provider Name and Address Organization Details Recorded Time Low back pain 812873694 Active 2021 Not Available [facility] 07:50:17 Essential hypertension 44058810 Active 2023 Tien Valerio MD Attn: Accounting ,[address] [place], [address] , [facility] 4 17:27:43 History of deep vein thrombosis 857757604 Active 2023 Tien Valerio MD Attn: Accounting ,[address] [place], [address] , [facility] 4 17:28:30 History of pulmonary embolus 315748318 Active 2023 Tien Valerio MD Attn: Accounting ,[address] [place], [address] , [facility] 4 17:28:54 Screening for malignant neoplasm of prostate Active 2023 Tien Valerio MD Attn: Accounting ,[address] [place], [address] , [facility] 4 17:33:38 Long-term current use of anticoagulant 571459773 Active 2023 Tien Valerio MD Attn: Accounting ,[address] [facility], [place], [address] , [facility] 4 17:35:06 Diverticular disease 617986186 Active 2023 Tien Valerio MD Attn: Accounting ,[address] [facility], [place], [address] , [facility] 4 17:36:23 Vitamin D deficiency 20331863 Active 2023 Tien Valerio MD Attn: Accounting ,[address] [facility], [place], [address] , [facility] 4 12:49:09 Macrocytosis 586980035 Active 2023 Tien Valerio MD Attn: Accounting ,[address] [facility], [place], [address] , [facility] 4 12:49:34 Hyperglycemia 25992841 Active 2023 Tien Valerio MD Attn: Accounting ,[address] [facility], [place], [address] , [facility] 4 12:50:28 Folic acid deficiency 466732712 Active 2023 Tien Valerio MD Attn: Accounting ,[address] [place], [address] , [facility] 4 07:30:18 Medication monitoring Active 2024 Tien Valerio MD Attn: Accounting ,[address] [place], [address] , [place] [facility] 5 01:58:05 Diverticuliti s 131175707 Active 2024 Tien Valerio MD Attn: Accounting ,[address] [place], [address] , [facility] 5 17:35:53 Problem Notes None recorded. Procedures Surgical History Date Name Laterality Status Provider Name and Address Organization Details Recorded Time Appendectomy completed Nitin Porter MA [place] [facility] 05/15/2021 14:08:07 Tonsillectomy completed Nitin Porter MA [place] [facility] 05/15/2021 14:08:22 Imaging Results None recorded. Procedure Notes None recorded. Medical Equipment None Reported. Allergies No known drug allergies Medications Name Sig Start Date Stop Date Status Note LastModified by Organization Details LastModified Time losartan 50 mg tablet Take 2 tablets every day by oral route as directed . 06/30 completed Not Available Not Available Not Available nifedipin e ER 30 mg tablet,ex tended release 24 hr TAKE ONE TABLET BY MOUTH EVERY DAY FOR BLOOD PRESSURE 12/23 completed Not Available Not Available Not Available amoxicill in 500 mg capsule 05/15 completed Not Available Not Available Not Available clindamyc in HCl 300 mg capsule TAKE ONE CAPSULE BY MOUTH EVERY 6 HOURS AFTER MEALS FOR 7 DAYS 11/06 completed Not Available Not Available Not Available azithromy lucio 250 mg tablet 12/10 completed Not Available Not Available Not Available tizanidin e 4 mg tablet TAKE ONE TABLET BY MOUTH THREE TIMES DAILY, MORNING, MIDDAY & IN THE EVENING NEEDED FOR MUSCLE SPASMS 2024 active Not Available Not Available Not Avai lable hydrocodo ne 5 mg-acetam inophen 325 mg tablet TAKE ONE TABLET BY MOUTH EVERY DAY NEEDED FOR PAIN 10/29 completed Not Available Not Available Not Available Viagra 50 mg tablet Take 1 TABLET 1 HOUR PRIOR TO SEXUAL ACTIVITY DIRECTED , BUT NOT TO EXCEED MORE THAN 1 IN 24 HOURS. MUST LAST 30 DAYS 12/23 completed Not Available Not Available Not Available promethaz ine 6.25 mg-codein e 10 mg/5 mL syrup Take 5 mL every 6 hours by oral route as needed for 10 days. 04/05 completed Not Available Not Available Not Available metronida zole 500 mg tablet take one tablet orally at 1PM, 2PM and 10PM the day before your surgery 12/23 completed Not Available Not Available Not Available nifedipin e ER 30 mg tablet,ex tended release 12/23 completed Not Available Not Available Not Available ciproflox acin 250 mg tablet 12/10 completed Not Available Not Available Not Available allopurin ol 100 mg tablet TAKE 1 TABLET BY MOUTH EVERY DAY AFTER A MEAL 05/13 completed Not Available Not Available Not Available ciproflox acin 500 mg tablet TAKE ONE TABLET BY MOUTH EVERY TWELVE HOURS AFTER MEALS FOR 5 DAYS 02/11 completed Not Available Not Available Not Available tramadol 50 mg tablet TAKE ONE TABLET BY MOUTH TWICE DAILY EVERY MORNING & EVENING NEEDED FOR PAIN active Not Available Not Available No t Available ketorolac 10 mg tablet TAKE 1 TABLET BY MOUTH EVERY 6 HOURS FOR 5 DAYS NEEDED 04/05 completed Not Available Not Available Not Available dicyclomi ne 20 mg tablet 12/23 completed Not Available Not Available Not Available baclofen 10 mg tablet Take 1 tablet 4 times a day by oral route as directed for 30 days. 12/23 completed Not Available Not Available Not Available hydrocodo ne 7.5 mg-acetam inophen 325 mg tablet Take 1 tablet every day by oral route as needed for 20 days. 05/29 completed Not Available Not Available Not Available pantopraz ole 40 mg tablet,de layed release 03/13 completed Not Available Not Available Not Available indometha lucio 50 mg capsule 04/05 completed Not Available Not Available Not Available gabapenti n 300 mg capsule TAKE 1 CAPSULE BY MOUTH THREE TIMES DAILY AROUND THE CLOCK 12/23 completed Not Available Not Available Not Available folic acid 1 mg tablet TAKE ONE TABLET BY MOUTH EVERY MORNING FOR VITAMIN DEFICIAN CY 2024 active Not Available Not Available Not Avai lable furosemid e 20 mg tablet TAKE ONE TABLET BY MOUTH EVERY DAY NEEDED FOR FLUID RETENTIO N 12/23 completed Not Available Not Available Not Available ergocalci ferol (vitamin D2) 1,250 mcg (50,000 unit) capsule TAKE ONE CAPSULE BY MOUTH EVERY WEEK FOR VITAMIN DEFICIAN CY active Not Available Not Available No t Available polyethyl thierno glycol 3350 17 gram/dose oral powder Take 240 g by oral route as directed . 12/23 completed Not Available Not Available Not Available oxycodone -acetamin ophen 7.5 mg-325 mg tablet 05/13 completed states he is not taking due to duplicat e therapy, 03/13/23 Not Available Not Available Not Available levofloxa lucio 750 mg tablet 12/23 completed Not Available Not Available Not Available methylpre dnisolone 4 mg tablets in a dose pack Use as directed on package 12/23 completed Not Available Not Available Not Available neomycin 500 mg tablet take 2 tablets orally at 1PM, 2PM, and 10PM the day before your surgery 12/23 completed Not Available Not Available Not Available colchicin e 0.6 mg tablet 03/13 completed Not Available Not Available Not Available naproxen 500 mg tablet TAKE ONE TABLET BY MOUTH TWICE DAILY 12/23 completed Not Available Not Available Not Available amoxicill in 875 mg-potass ium clavulana te 125 mg tablet TAKE ONE TABLET BY MOUTH TWICE DAILY EVERY MORNING & EVENING FOR 10 DAYS FOR INFECTIO N active Not Available Not Available No t Available Dulcolax (bisacody l) 5 mg tablet,de layed release Take 4 tablets by oral route as directed . 12/23 completed Not Available Not Available Not Available losartan 100 mg-hydroc hlorothia zide 12.5 mg tablet TAKE ONE TABLET BY MOUTH EVERY MORNING FOR BLOOD PRESSURE & FLUID RETENTIO N active Not Available Not Available No t Available Xarelto 20 mg tablet TAKE ONE TABLET BY MOUTH EVERY MORNING WITH FOOD TO PREVENT BLOOD CLOTS active Not Available Not Available No t Available lidocaine 5 % topical ointment APPLY TO AFFECTED AREA(S) BY TOPICAL ROUTE 1-4 TIMES DAILY NEEDED 12/23 completed Not Available Not Available Not Available Vitals Date Recorded Body height Body mass index (BMI) Body weight Oxygen saturation Oxygen saturation in Arterial blood by Pulse oximetry Heart rate Systolic blood pressure Diastolic blood pressure Provider Name and Address Organization Details Last Updated DateTime 4 180.34 cm 26.2 kg/m2 04216.3 7 g 97 % 97 % 77 /min 164 mm[Hg] 96 mm[Hg] Linda Ford MA [place] - [facility] 4 16:00:27 Date Recorded Body height Body mass index (BMI) Body weight Oxygen saturation Oxygen saturation in Arterial blood by Pulse oximetry Heart rate Systolic blood pressure Diastolic blood pressure Provider Name and Address Organization Details Last Updated DateTime 4 180.34 cm 26.9 kg/m2 86974.3 3 g 98 % 98 % 96 /min 168 mm[Hg] 98 mm[Hg] Linda Ford MA [facility] 4 16:39:48 Date Recorded Body height Body mass index (BMI) Body weight Oxygen saturation Oxygen saturation in Arterial blood by Pulse oximetry Heart rate Systolic blood pressure Diastolic blood pressure Provider Name and Address Organization Details Last Updated DateTime 4 180.34 cm 25.7 kg/m2 60151.2 8 g 95 % 95 % 88 /min 130 mm[Hg] 81 mm[Hg] Jono Rosas MA [facility] 4 17:10:48 Date Recorded Body height Body mass index (BMI) Body weight Heart rate Oxygen saturation Oxygen saturation in Arterial blood by Pulse oximetry Systolic blood pressure Diastolic blood pressure Provider Name and Address Organization Details Last Updated DateTime 5 180.34 cm 26.5 kg/m2 33056.5 5 g 96 /min 96 % 96 % 135 mm[Hg] 94 mm[Hg] Massiel Lopez MA [facility] 5 17:10:07 Date Recorded Body height Body mass index (BMI) Body weight Body temperature Heart rate Oxygen saturation Oxygen saturation in Arterial blood by Pulse oximetry Respiratory rate Pain severity - 0-10 verbal numeric rating [Score] - Reported Systolic blood pressure Diastolic blood pressure Provider Name and Address Organization Details Last Updated DateTime 5 180.34 cm 26.2 kg/m2 30817.3 7 g 97 [degF] 84 /min 96 % 96 % 18 /min 3 104 mm[Hg] 74 mm[Hg] Sandhya Ramesh LPN [facility] 5 14:43:31 Social History Question Answer Notes LastModified by Organizat ion Details LastModified Time Tobacco Smoking Status Never Smoker Nitin Porter MA null, [facility] 05/15/2021 14:11:19 Do You Have An Advance Directive? No [email or web address] Information n ot available 02/13/2023 In The 14 Days Before Symptom Onset, Have You Had Close Contact With A Laboratory-confirm ed COVID-19 While That Case Was Ill? No [email or web address] Information n ot available [id number]|2025-02-01 16:36:26|2025-02-01 16:36:26|PM.CNGS||||"Assessment and Plan Assessment and plan (1) Sigmoid diverticulitis: Code(s): K57.32 - Diverticulitis of large intestine without perforation or abscess without bleeding Status: Acute Assessment and Plan: Continue conservative management for now with IV antibiotics, bowel rest, will need interval colonoscopy and likely sigmoid colectomy in 6-8 weeks History of Present Illness Consult details Consult date: 02/01/25 Reason for consult: abdominal pain Requesting physician: Dia Russell APRN Narrative: The patient is a 59-year-old male presenting to the hospital complaining of severe left lower quadrant abdominal pain, poor appetite, nausea. Patient reports that this is very consistent with his episodes of recurrent diverticulitis. Patient reports he has had multiple episodes since 2017. This episode has lasted the last couple of weeks and he has been on p.o. antibiotics without improvement. The patient reports that he has been scheduled to have sigmoid colectomy but due to some issues with the Anand catheter preoperative the case was canceled. Review of Systems Review of Systems: All systems reviewed & are unremarkable except as noted in HPI and below [facility] Social History Social History Smoking status: Never smoker Alcohol intake: current Drinks per week: 4 Substance use: never Substance use type: does not use Do You Feel Safe in your Home?: Yes Lack of Transportation: No Lack of Food: Never True Current Housing: I Have Housing Concerned About Future Housing: No Difficulty Paying Gas/Electric Bills: No Difficulty Paying for Meds: No Currently Unemployed: No Education: Decline to Answer Difficulty w/ Childcare or Family Care: No Spiritual care concerns: No Meds Home Medications and Allergies Home Medications Medication Instructions Recorded Confirmed Type amoxicillin 875 mg-potassium 1 tablet PO Q12H 02/01/25 02/01/25 History clavulanate 125 mg tablet losartan 100 1 tablet PO DAILY 02/01/25 02/01/25 History mg-hydrochlorothiazide 12.5 mg tablet rivaroxaban 20 mg tablet (Xarelto) 20 mg PO DAILY 02/01/25 02/01/25 History tizanidine 4 mg tablet 4 mg PO Q8H PRN muscle spasticity 02/01/25 02/01/25 History tramadol 50 mg tablet 50 mg PO BID PRN pain 02/01/25 02/01/25 History Allergies Allergy/AdvReac Type Severity Reaction Status Date / Time No Known Allergies Allergy Verified 02/01/25 08:57 Vital Signs Vital Signs - 24 hr 02/01/25 08:51 02/01/25 09:34 02/01/25 10:00 Temperature 36.4 C Pulse Rate 88 76 63 Respiratory Rate 18 18 15 Blood Pressure 163/96 H 143/87 H 141/85 H Pulse Oximetry 99 95 95 Oxygen Delivery Room Air 02/01/25 10:30 02/01/25 11:33 02/01/25 11:51 Temperature Pulse Rate 73 Respiratory Rate 17 Blood Pressure 132/82 Pulse Oximetry 97 99 98 Oxygen Delivery Room Air 02/01/25 11:55 02/01/25 12:00 02/01/25 14:00 Temperature 35.7 C L Pulse Rate 78 76 Respiratory Rate 16 18 Blood Pressure 139/88 130/80 Pulse Oximetry 96 98 98 Oxygen Delivery Exam Const: General: cooperative, no acute distress and uncomfortable HENMT: Head: normal to inspection, normocephalic and atraumatic Eyes: General: appearance normal, both eyes and all related structures Neck: Neck: normal visual inspection, full ROM and no lymphadenopathy Resp: Auscultation: clear to auscultation bilaterally Cardio: Rate: regular rate Rhythm: regular rhythm GI: Inspection: normal to inspection and distended GI Palp: Yes abdominal tenderness, Yes Soft to palpation, Yes Tenderness to palpation present (GI), No Guarding due to palpation present (GI) and No Rigid due to palpation Skin: General skin exam: normal color and no rashes or lesions noted Neuro: General: patient oriented x3 and CN's II-XI intact bilaterally Extrem: General: normal to inspection and full ROM Results Labs 02/01/25 09:00 02/01/25 09:00 Labs: Abnormal lab results 02/01/25 Range/Units 09:00 WBC 15.1 H (4.5-10.0) K/mm3 Neut % (Auto) 79.4 H (45.5-73.1) % Lymph % (Auto) 11.2 L (18.3-44.2) % [place] # (Auto) 0.9 H (0.1-0.6) K/mm3 Eos # (Auto) 0.4 H (0-0.3) K/mm3 Abs Immat Gran (auto) 0.06 H (0.00-0.031) K/mm3 Absolute Neuts (auto) 12.0 H (1.3-6.7) K/mm3 BUN 8 L (9-20) mg/dL Diabetes panel 02/01/25 Range/Units 09:00 Sodium 137 (137-145) mmol/L Potassium 4.0 (3.4-5.0) mmol/L Chloride 98 (98-107) mmol/L Carbon Dioxide 28 (22-30) mmol/L BUN 8 L (9-20) mg/dL Creatinine 1.07 (0.7-1.3) mg/dL Glucose 105 (65-110) mg/dL Calcium 9.2 (8.4-10.2) mg/dL AST 27 (17-59) U/L ALT 22 (6-50) U/L Alkaline Phosphatase 119 (38-126) U/L Total Protein 8.0 (6.3-8.2) g/dL Albumin 4.5 (3.5-5.1) g/dL Calcium panel 02/01/25 Range/Units 09:00 Calcium 9.2 (8.4-10.2) mg/dL Albumin 4.5 (3.5-5.1) g/dL Pituitary panel 02/01/25 Range/Units 09:00 Sodium 137 (137-145) mmol/L Potassium 4.0 (3.4-5.0) mmol/L Chloride 98 (98-107) mmol/L Carbon Dioxide 28 (22-30) mmol/L BUN 8 L (9-20) mg/dL Creatinine 1.07 (0.7-1.3) mg/dL Glucose 105 (65-110) mg/dL Calcium 9.2 (8.4-10.2) mg/dL Adrenal panel 02/01/25 Range/Units 09:00 Sodium 137 (137-145) mmol/L Potassium 4.0 (3.4-5.0) mmol/L Chloride 98 (98-107) mmol/L Carbon Dioxide 28 (22-30) mmol/L BUN 8 L (9-20) mg/dL Creatinine 1.07 (0.7-1.3) mg/dL Glucose 105 (65-110) mg/dL Calcium 9.2 (8.4-10.2) mg/dL Total Bilirubin 1.1 (0.2-1.3) mg/dL AST 27 (17-59) U/L ALT 22 (6-50) U/L Alkaline Phosphatase 119 (38-126) U/L Total Protein 8.0 (6.3-8.2) g/dL Albumin 4.5 (3.5-5.1) g/dL All other labs normal. Imaging Abdomen CT scan report/results: report reviewed and image reviewed"
[2025-02-01 09:20] LABS: Basophils Absolute Auto 0.1 K/mm3 (0.0-0.1); Basophils Percent Auto 0.5 % (0.2-1.2); Eosinophils Absolute Auto 0.4 K/mm3 (0-0.3); Eosinophils Percent Auto 2.6 % (0-4.4); Hematocrit 46.7 % (42.0-52.0); Hemoglobin 16.4 g/dL (14.0-18.0); Immature Granulocyte Absolute 0.06 K/mm3 (0.00-0.031); Immature Granulocyte Percent A 0.4 % (0-0.5); Lymphocytes Absolute Auto 1.69 K/mm3 (0.9-3.2); Lymphocytes Percent Auto 11.2 % (18.3-44.2); Mean Corpuscular HGB Conc 35.1 g/dl (32-36); Mean Corpuscular Hemoglobin 32.2 pg (26-34); Mean Corpuscular Volume 91.7 fl (80-100); Monocytes Absolute Auto 0.9 K/mm3 (0.1-0.6); Monocytes Percent Auto 5.9 % (2.6-8.5); Neutrophils Percent Auto 79.4 % (45.5-73.1); Platelet Count Result 256 k/mm3 (150-375); Red Blood Count 5.09 M/mm3 (4.6-6.20); Red Cell Distribution Width 11.8 % (11.5-14.5); White Blood Count 15.1 K/mm3 (4.5-10.0)
--- OUTSIDE RECORDS SUMMARY | 2025-02-01 09:21 | XMS_ITS | Continuity of Care Document ---
Author Organization [facility] Address [address] [place] [address] [place] [address] Phone Care Team Providers Care Forensic Document Examiner Name Role Phone Wiley Hayward Unavailable Unavailable Procedures Procedure Date Remove Foreign Body From Eye Advance Directives Directive Yes / No Effective Date File Name No Information Encounters Encounter Description Practice Location Reason(s) For Visit Diagnoses Date Provider Providers Copied on Encounter [facility], [address] [place] [address] [address], [place], [place], [id number], [place] tel:[phone] SEC [facility] No Information [address] [place] [address], [facility], [place]. tel:[phone] Referring Provider: Wiley jolley, [address], [facility]. tel:[phone] Family History Family Member Type Diagnosis Age At Onset No Information Payers Payer name Insurance type Covered constitution party ID Authoriza tion(s) Medicaid [facility] [id number] Social History Type Description Quantity Date Captured [...]
--- OUTSIDE RECORDS SUMMARY | 2025-02-01 09:21 | XMS_ITS | Clinical Summary ---
Author Organization [facility] Address [address] [place] [address] Care Team Providers Care Parking Lot Laborer Name Role Phone Meche Kinney MD Primary Care Provider [phone] Source Comments [facility],non-owned Affiliates and Associated Physician Practices is amultiple site organization consisting of ambulatory clinics and hospital sitesin [place], [place], [place] and [place]. This disclosure is being madepursuant to the Care Everywhere program and may not contain all information available regarding this patient. Last updated 18.[facility] Allergies No known active allergies Medications * Be aware that medications may not be up to date on this document. Alwaysverify current medications with the patient. HYDROcodone-acet aminophen ([place]) 5-325 MG tablet Take 1 (one) tablet by mouth every 6 hours as needed for Pain Active losartan (Cozaar) 50 MG tablet Take 1 (one) tablet by mouth once daily Active furosemide (Lasix) 20 MG tablet Take 1 (one) tablet by mouth once daily as needed Active traMADol (Ultram) 50 MG tablet Take 1 (one) tablet by mouth every 6 hours as needed for Pain Active methylPREDNISolo ne (Medrol) 4 MG tablet Take 1 (one) tablet by mouth once daily Active folic acid 400 MCG tablet Take 1 (one) tablet by mouth every 7 days Active rivaroxaban (Xarelto) 20 MG tablet Take 1 (one) tablet by mouth daily with food 90 tablet 1 12/10/2024 5 Active Active Problems Problem Noted Date Diagnosed Date Acute saddle pulmonary embol ism, unspecified whether acute cor pulmonale present 05/07/2023 Encounters Date Type Department Care Team Description 12/10/[address] [address] Dillon Sandoval MD MEDICATION REFILL 11/23/[address] [address] Dillon Sandoval MD Medication Prior Auth Request 11/23/[address] [address] Dillon Sandoval MD Medication Prior Auth Request from Last 3 Months Family History Medical History Relation Name Comments Other - Cardiac Father Cancer Mother Relation Name Status Comments Father Mother Social History Tobacco Use Types Packs/Day Years Used Date Smoking Tobacco: Never Smokeless Tobacco: Never Tobacco Cessation:Counseling Given: Not Answered Alcohol Use Standard Drinks/Week Comments Yes 2 (1 standard drink = 0.6 oz pur e alcohol) about 14/wk Overall Financial Resource Strain (CARDIA) Answe r Date Recorded How hard is it for you to pa y for the very basics like food, housing, medical care, and heating? Not hard at all 05/07/2023 PHQ-2 Answer Date Recorded Patient Health Questionnaire-2 Score 0 06/15/2024 [facility] Occupat ional [facility] - Occupational Stress Questionnaire Answer Date Recorded Do you feel stress - tense, restless, nervous, or anxious, or unable to sleep at night because your mind is troubled all the time - these days? Not at all 05/07/2023 Hunger Vital Sign Answer Date Recorded Within the past 12 months, y ou worried that your food would run out before you got the money to buy more. Never true 05/08/20 23 Within the past 12 months, t he food you bought just didn't last and you didn't have money to get more. Never true 05/08/2023 PRAPARE - Transportation Answer Date Re corded In the past 12 months, has l ack of transportation kept you from medical appointments or from getting medications? No 04/22 In the past 12 months, has l ack of transportation kept you from meetings, work, or from getting things needed for daily living? No 05/07/2023 Housing Stability Vital Sign Answer Royce e Recorded In the last 12 months, was t here a time when you were not able to pay the mortgage or rent on time? No 05/07/2023 In the last 12 months, how many places have you lived? 1 05/07/2023 In the last 12 months, was t here a time when you did not have a steady place to sleep or slept in a long-term (including now)? No 05/07/2023 Sex and Gender Information Value Date Recorded Sex Assigned at Not on file Legal Sex Male 12:30 PM CDT Gender Identity Not on file Sexual Orientation Not on file Last Filed Vital Signs Vital Sign Reading Time Taken Comments Blood Pressure 119/79 06/15/2024 1:29 PM CDT Pulse 73 06/15/2024 1:29 PM CDT Temperature 36.7 C (98 F) 06/15/2024 1:29 PM CDT Respiratory Rate 16 06/15/2024 1:29 PM CDT Oxygen Saturation 100% 06/15/2024 1:29 PM CDT Inhaled Oxygen Concentration - - Weight 83.1 kg (183 lb 4 oz) 06/15/2024 1:29 PM CDT Height 180.3 cm (5' 11 ) 06/15/2024 1:29 PM CDT Body Mass Index 25.56 06/15/2024 1:29 PM CDT Plan of Treatment Upcoming Encounters Date Type Department Care Team (Late st Contact Info) Description 06/16/2025 3:00 PM CDT Documentation [address] [address] 06/16/2025 3:10 PM CDT Office Visit [facility] [address] [address] Dillon Sandoval MD [address] [place] [phone] Health Maintenance Due Date Last Done Comments COLOGUARD (AGES 45-75) - COLON CA SCREENING 1964 COLON MONITORING 1964 COLONOSCOPY - COLON CA SCREENING 1964 CT COLONOGRAPHY - COLON CA SCREENING 1964 Colorectal Cancer Screening 1964 FIT - COLON CA SCREENING 1964 FLEX SIG - COLON CA SCREENING 1964 LIPID TESTING 1964 HIV SCREENING 1979 HEPATITIS C SCREENING 07/27/1982 DTAP/TDAP/TD VACCINES (1 - Tdap) 1983 PNEUMOCOCCAL VACCINE 50+ (1 of 1 - PCV) 2014 ZOSTER VACCINE (1 of 2) 2014 COVID-19 VACCINE (3 - season) 2024 04/24/2021, 03/27/2021 Respiratory Syncytial Virus (RSV) Vaccine Pt: or over 60 yrs (1 - Risk 60-74 years 1-dose series) 2024 DEPRESSION SCREENING 09/22/2024 12/11/2023, 06/10/20 INFLUENZA VACCINE (Season Ended) 2025 07/02/2017 SCREENING FOR DIABETES 06/15/2027 , 12/11/2023, 06/10/2023, Additional history exists HEPATITIS B VACCINE Aged Out No longe r eligible based on patient's age to complete this topic HIB VACCINE Aged Out No longer eligi ble based on patient's age to complete this topic HPV VACCINE Aged Out No longer eligi ble based on patient's age to complete this topic MENINGOCOCCAL (Group B) VACCINE SHARED DECISION-MAKING Aged Out No longer eligible based on patient's age to complete this topic MENINGOCOCCAL GROUPS A/C/Y/W VACCINE Aged Out No longer eligible based on patient's age to complete this topic Procedures Procedure Name Priority Date/Time Associated Diagnosis Comments COMPREHENSIVE METABOLIC PANEL Routine 06/15/2024 3:38 PM CDT Acute saddle pulmonary embolism, unspecified whether acute cor pulmonale present from Last 3 Months or Most Recently Relevant to Health Maintenance Results * COMPREHENSIVE METABOLIC PANEL (06/15/2024 3:38 PM CDT) Glucose 95 70 - 99 mg/dL [facility] INSURANCE BILL BUN 11 6 - 24 mg/dL [facility] INSURANCE BILL Creatinine 1.00 0.76 - 1.27 mg/dL [facility] INSURANCE BILL eGFR by CKD-EPI 87 >59 mL/min/1.7 3 [facility] INSURANCE BILL BUN/Creatinine Ratio 11 9 - 20 [facility] INSURANCE BILL Sodium 137 134 - 144 mmol/L [facility] INSURANCE BILL Potassium 4.0 3.5 - 5.2 mmol/L [facility] INSURANCE BILL Chloride 102 96 - 106 mmol/L [facility] INSURANCE BILL CO2 22 20 - 29 mmol/L [facility] INSURANCE BILL Calcium 9.2 8.7 - 10.2 mg/dL [facility] INSURANCE BILL Protein Total 7.5 6.0 - 8.5 g/dL [facility] INSURANCE BILL Albumin 4.3 3.8 - 4.9 g/dL [facility] INSURANCE BILL Globulin Total 3.2 1.5 - 4.5 g/dL [facility] INSURANCE BILL Bilirubin Total 0.6 0.0 - 1.2 mg/dL [facility] INSURANCE BILL Alkaline Phosphatase 101 44 - 121 IU/L [facility] INSURANCE BILL AST 16 0 - 40 IU/L [facility] INSURANCE BILL ALT 12 0 - 44 IU/L [facility] INSURANCE BILL Blood BLOOD SPECIMEN / Unknown 06/15/2024 3:38 PM CDT 06/15/2024 Comment:Blood Release to pat i Eve [facility] INSURANCE BILL - 06/16/2024 8:21 AM CDT Performed at: - [facility] [id number] [place], [place] [id number] Cnc Specialist: Prasanna Valentino PhD, Phone: [phone] us Dillon Sandoval MD LAB - CHEMISTRY ORDERABLES Fi nal Result [facility] INSURANCE BILL [address] [place] [address] from Last 3 Months or Most Recently Relevant to Health Maintenance Insurance [facility] Advance Directives * Full Code (Latest Code Status on File) Date Activated Date Inactivated Comments 05/07/2023 4:02 PM 05/10/2023 2:56 PM Care Teams Parking Lot Laborer Relationship Specialty Start Date End Date Meche Kinney MD [address] [place] [address] PCP - General Internal Medicine 05/07/23
--- OUTSIDE RECORDS SUMMARY | 2025-02-01 09:21 | XMS_ITS | CONTINUITY OF CARE DOCUMENT ---
Author Name linus barriga Address Unknown Organization [facility] Address [address] [place] [address] Phone [phone] Care Team Providers Care Social Worker School Name Role Phone Dale PADILLA, Lucas Unavailable CARMENZA PADILLA, FRANCOIS Unavailable [phone] INSURANCE PROVIDERS Payer name Policy type / Coverage type Jaye red democrat [employer] [facility] [facility] Medicaid 1 [id number]
[2025-02-01 09:25] LABS: Add Urine Microscopic? NO; Appearance Urine Clear (Clear); Bilirubin Urine Negative (Negative); Blood Urine Negative (Negative); Color Urine Yellow (Yellow); Glucose Urine UA Negative (Negative); Ketones Urine Negative (Negative); Leukocyte Esterase Ur Negative LEU/UL (Negative); Nitrate Urine Negative (Negative); Protein Urine Negative (Negative); Specific Grav Ur 1.015 (1.001-1.035); Urobilinogen Urine 0.2 mg/dL (<2.0)
--- NOTE | 2025-02-01 09:32 | ED_ITS ---
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 Patient states he began developing pain to the left lower quadrant a few weeks ago. He contacted his PCP and was started on Augmentin on 01/07/2025 which he took with improvement for few days, however his pain returned. He was sent prescribed another round of Augmentin on 01/25/2025 which he is currently taking, prescribed by Dr. Nevarez general surgery. Patient presents to the ED today for persistent pain, states last night he was curled up in a ball because the pain was so severe. He has been taking tramadol without improvement. He reports associated soft stools and states he had nausea and vomiting at the beginning of symptoms but that has since improved. He denies fever, melena, hematochezia, dysuria. States about a year to 2 years ago he was scheduled to have a partial colectomy at [facility] but unfortunately the surgery was canceled after they were unable to place a Anand catheter for surgery. Related Data Allergies Allergy/AdvReac Type Severity Reaction Status Date / Time No Known Allergies Allergy Verified 02/01/25 08:57 Review of Systems 2 Review of Systems: All systems reviewed & are unremarkable except as noted in HPI and below Exam 2 Narrative: GENERAL: Well-appearing, well-nourished, and in no acute distress. HEAD: Normocephalic, atraumatic. EYES: EOMI. ENT: Nares clear, no rhinorrhea or epistaxis. Mucous membranes moist. NECK: Supple. CHEST: Clear to auscultation. No respiratory distress. HEART: Regular rate and rhythm. No murmur heard. Normal peripheral pulses. ABDOMEN: Normoactive bowel sounds. Abdomen soft with tenderness in the left lower quadrant. No rebound, guarding or rigidity. No CVA tenderness EXTREMITIES: Normal range of motion. No edema. SKIN: Warm, dry, no rash. NEURO: No focal deficits. Alert and oriented x3 Course Vital Signs Vital signs: Vital Signs Temperature 97.6 F 02/01/25 08:51 Pulse Rate 88 02/01/25 08:51 Respiratory Rate 18 02/01/25 08:51 Blood Pressure 163/96 H 02/01/25 08:51 Pulse Oximetry 99 02/01/25 08:51 Oxygen Delivery Room Air 02/01/25 08:51 Temperature 97.6 F 02/01/25 08:51 Pulse Rate 73 02/01/25 10:30 Respiratory Rate 17 02/01/25 10:30 Blood Pressure 132/82 02/01/25 10:30 Pulse Oximetry 97 02/01/25 10:30 Oxygen Delivery Room Air 02/01/25 08:51 MDM - Abdominal Pain MDM Narrative Medical decision making narrative: 5-year-old male presents to the emergency department with concerns for diverticulitis. Reports left lower quadrant abdominal pain for the past several weeks and has been on 2 rounds of Augmentin, however pain is persistent. Triage vitals with elevated blood pressure 163/96, otherwise unremarkable. Patient is afebrile and nontoxic appearing. Exam significant the above. CBC significant for leukocytosis of 15.1, no bandemia. Chemistries are unremarkable. UA is unremarkable. Lactic acid within normal limits. CT abdomen pelvis confirms acute sigmoid diverticulitis with no abscess or free air. Patient and at bedside updated on results. Patient received IV morphine and Zofran with improvement in symptoms. Shared decision making regarding disposition. Given patient has failed outpatient antibiotics twice and is continuing to have pain, he agrees to admission for IV antibiotics and pain control. Discussed with hospitalist, Dr. Domingo, who accepts admission. Lab Data 02/01/25 09:00 02/01/25 09:00 Labs: Lab Results 02/01/25 02/01/25 Range/Units 09:00 09:39 WBC 15.1 H (4.5-10.0) K/mm3 RBC 5.09 (4.6-6.20) M/mm3 Hgb 16.4 (14.0-18.0) g/dL Hct 46.7 (42.0-52.0) % MCV 91.7 (80-100) fl MCH 32.2 (26-34) pg MCHC 35.1 (32-36) g/dl RDW 11.8 (11.5-14.5) % Plt Count 256 (150-375) k/mm3 MPV 8.0 (7.4-10.4) fl Immature Gran % (Auto) 0.4 (0-0.5) % Neut % (Auto) 79.4 H (45.5-73.1) % Lymph % (Auto) 11.2 L (18.3-44.2) % [place] % (Auto) 5.9 (2.6-8.5) % Eos % (Auto) 2.6 (0-4.4) % Baso % (Auto) 0.5 (0.2-1.2) % Lymph # (Auto) 1.69 (0.9-3.2) K/mm3 [place] # (Auto) 0.9 H (0.1-0.6) K/mm3 Eos # (Auto) 0.4 H (0-0.3) K/mm3 Baso # (Auto) 0.1 (0.0-0.1) K/mm3 Abs Immat Gran (auto) 0.06 H (0.00-0.031) K/mm3 Absolute Neuts (auto) 12.0 H (1.3-6.7) K/mm3 Absolute Nucleated RBC 0.000 (0.0-0.012) K/mm3 Nucleated RBC % 0.0 (0.0-0.2) % Sodium 137 (137-145) mmol/L Potassium 4.0 (3.4-5.0) mmol/L Chloride 98 (98-107) mmol/L Carbon Dioxide 28 (22-30) mmol/L Anion Gap 11 (4-12) mmol/L BUN 8 L (9-20) mg/dL Creatinine 1.07 (0.7-1.3) mg/dL Estim Creat Clear Calc 69 ml/min Estimated GFR > 60 (59 - ) Glucose 105 (65-110) mg/dL Lactic Acid 1.1 (0.7-2.0) mmol/L Calcium 9.2 (8.4-10.2) mg/dL Total Bilirubin 1.1 (0.2-1.3) mg/dL AST 27 (17-59) U/L ALT 22 (6-50) U/L Alkaline Phosphatase 119 (38-126) U/L Total Protein 8.0 (6.3-8.2) g/dL Albumin 4.5 (3.5-5.1) g/dL Lipase 119 (23-300) U/L Urine Color Yellow (Yellow) Urine Appearance Clear (Clear) Urine pH 6.0 (5.0-9.0) Ur Specific [place] 1.015 (1.001-1.035) Urine Protein Negative (Negative) mg/dL Urine Glucose (UA) Negative (Negative) mg/dL Urine Ketones Negative (Negative) mg/dL Ur Blood (Man) Negative (Negative) Urine Nitrate Negative (Negative) Urine Bilirubin Negative (Negative) Urine Urobilinogen 0.2 (<2.0) mg/dL Leukocyte Esterase Rfl Negative (Negative) JOSÉ ANTONIO/UL Imaging Data Radiologist's impression: ITS Impressions Abdomen/Pelvis CT 02/01/25 10:58 Impression: Acute sigmoid diverticulitis. No abscess or free air. Discharge Plan Discharge Clinical Impression: Sigmoid diverticulitis Patient Disposition: Still a Patient Condition: Stable Instructions: Antibiotic Form Patient Language: Belarusian Prescriptions: No Action methylprednisolone [Medrol (Juaquin)] 4 mg tablets,dose pack See Rx Instructions .ROUTE .COMPLEX Qty: 21 0RF Rx Instructions: orally per package directions Follow-up/Referrals: UNKNOWN,DOCTOR [Primary Care Provider] -
[2025-02-01] MEDS: ONDANSETRON INJ 4 MG/2 ML VIAL IV PUSH (09:38)
[2025-02-01] MEDS: MORPHINE SULFATE (*CRX) 4 MG/ML INJ IV PUSH (09:39)
[2025-02-01 10:01] LABS: Lactic Acid Reflex 1.1 mmol/L (0.7-2.0)
[2025-02-01 10:33] LABS: Alanine Aminotransferase 22 U/L (6-50); Albumin Level 4.5 g/dL (3.5-5.1); Alkaline Phosphatase 119 U/L (38-126); Anion Gap 11 mmol/L (4-12); Aspartate Amino Transferase 27 U/L (17-59); Bilirubin,Total 1.1 mg/dL (0.2-1.3); Blood Urea Nitrogen 8 mg/dL (9-20); Calcium 9.2 mg/dL (8.4-10.2); Carbon Dioxide 28 mmol/L (22-30); Chloride 98 mmol/L (98-107); Estimated CRCL calculation 69 ml/min; Estimated Glomerular Filt Rate > 60; Glucose 105 mg/dL (65-110); Lipase 119 U/L (23-300); Sodium 137 mmol/L (137-145)
[2025-02-01] MEDS: PIPERACILLN/TAZ 3.375GM/NS50ML 3.375 GM/50 ML BAG IVPB ×3 (12:12→23:15)
--- NOTE | 2025-02-01 12:24 | P.HP_ITS ---
H&P: HPI History of Present Illness Date/Time: 02/01/25 12:24 Chief Complaint: Abdominal pain Narrative: 59-year-old male presents the hospital with severe abdominal pain. Patient states that he went to his PCP and was prescribed antibiotics for about a week. He said originally he felt better in after being off of it for a few days he started having acute abdominal pain. He went back to Dr. thompson subscript lainez antibiotics for total of 10 days. Today he was unable to eat and his pain was getting worse so he presented to the emergency room. Patient denies nausea or vomiting. Endorses poor appetite. In the ED his lab work shows leukocytosis of 15.1, BMP is within normal limits, UA is within normal limits, CT abdomen pelvis shows acute sigmoid diverticulitis with no abscess or free air. Patient was started on IV fluids and Zosyn. Review of Systems Review of Systems: 12 systems were reviewed and are negativ e except for as per HPI. [facility] Social History Social History Smoking status: Never smoker Alcohol intake: current Drinks per week: 4 Substance use: never Substance use type: does not use Do You Feel Safe in your Home?: Yes Lack of Transportation: No Lack of Food: Never True Current Housing: I Have Housing Concerned About Future Housing: No Difficulty Paying Gas/Electric Bills: No Difficulty Paying for Meds: No Currently Unemployed: No Education: Decline to Answer Difficulty w/ Childcare or Family Care: No Spiritual care concerns: No Meds Home Medications and Allergies Home Medications Medication Instructions Recorded Confirmed Type amoxicillin 875 mg-potassium 1 tablet PO Q12H 02/01/25 02/01/25 History clavulanate 125 mg tablet losartan 100 1 tablet PO DAILY 02/01/25 02/01/25 History mg-hydrochlorothiazide 12.5 mg tablet rivaroxaban 20 mg tablet (Xarelto) 20 mg PO DAILY 02/01/25 02/01/25 History tizanidine 4 mg tablet 4 mg PO Q8H PRN muscle spasticity 02/01/25 02/01/25 History tramadol 50 mg tablet 50 mg PO BID PRN pain 02/01/25 02/01/25 History Allergies Allergy/AdvReac Type Severity Reaction Status Date / Time No Known Allergies Allergy Verified 02/01/25 08:57 Vital Signs Vital Signs - 24 hr 02/01/25 08:51 02/01/25 09:34 02/01/25 10:00 Temperature 97.6 F Pulse Rate 88 76 63 Respiratory Rate 18 18 15 Blood Pressure 163/96 H 143/87 H 141/85 H Pulse Oximetry 99 95 95 Oxygen Delivery Room Air 02/01/25 10:30 02/01/25 11:33 02/01/25 11:51 Temperature Pulse Rate 73 Respiratory Rate 17 Blood Pressure 132/82 Pulse Oximetry 97 99 98 Oxygen Delivery Room Air 02/01/25 11:55 02/01/25 12:00 Temperature Pulse Rate 78 Respiratory Rate 16 Blood Pressure 139/88 Pulse Oximetry 96 98 Oxygen Delivery Exam Narrative: General: well appearing, appears stated age. HEENT: normocephalic, atraumatic. Mucous membranes moist. EOMI, PERRLA, bilateral sclera anicteric, no conjunctival injection. Neck supple without JVD, lymphadenopathy, or bruit. Respiratory: clear to ascultation bilaterally. No rales/rhonic/wheezes. Cardiovascular: Regular rate and rhythm, normal S1-S2 upon ascultation. No murmurs, rubs, or clicks. PMI is nondisplaced, capillary refill less than 3 second. Abdomen: Soft, round, no pulsatile masses, nondistended No rebound, no guarding. No CVA tenderness, no hepatosplenomegaly. Bowel sounds present to all four quadrants. No high pitch or tinkling sounds, resonant to percussion. Lower abdominal pain on palpation Extremities: No cyanosis, clubbing, or edema present. Pulses are palpable 2/2. Active ROM to all four extremities. Neuro: Alert and orientated x 4. PERRLA. Cranial nerves 2-12 intact without focal deficit. Skin: Warm, dry, and intact, without rash, erythema, or lesion. Psych: pleasant, cooperative, normal speech, normal affect, no hallucinations, no dysarthia H&P: Results Labs Labs: Short CBC 02/01/25 Range/Units 09:00 WBC 15.1 H (4.5-10.0) K/mm3 Hgb 16.4 (14.0-18.0) g/dL Hct 46.7 (42.0-52.0) % Plt Count 256 (150-375) k/mm3 BMP 02/01/25 09:00 Sodium 137 Potassium 4.0 Chloride 98 Carbon Dioxide 28 BUN 8 L Creatinine 1.07 Glucose 105 Calcium 9.2 Liver Function 02/01/25 Range/Units 09:00 Total Bilirubin 1.1 (0.2-1.3) mg/dL AST 27 (17-59) U/L ALT 22 (6-50) U/L Alkaline Phosphatase 119 (38-126) U/L Albumin 4.5 (3.5-5.1) g/dL Urine 02/01/25 Range/Units 09:00 Urine Color Yellow (Yellow) Urine Appearance Clear (Clear) Urine pH 6.0 (5.0-9.0) Ur Specific [place] 1.015 (1.001-1.035) Urine Protein Negative (Negative) mg/dL Urine Glucose (UA) Negative (Negative) mg/dL Assessment and Plan Assessment and plan (1) Sigmoid diverticulitis: Code(s): K57.32 - Diverticulitis of large intestine without perforation or abscess without bleeding Status: Acute Assessment and Plan: Surgery consulted IV fluids for hydration Zosyn Okay for clear liquid diet BMP and CBC the morning Pain management Blood cultures pending Quality VTE Prophylaxis VTE prophylaxis: mechanical ordered and pharmacologic ordered Hospitalist [facility] Advance Care Plan I have confirmed that the patient's Advanced Care Plan is present, code status is documented, or surrogate decision maker is listed in patient medical record.: Yes Medication Reconciliation I have utilized all available resources to obtain, update and review the patients current medications (includes all prescriptions, OTC, herbals, cannabis, and nutritional supplements).: Yes
--- NOTE | 2025-02-01 12:38 | ADMGEN ---
This patient, Casey Asia Kearns, was admitted to 3 [facility] Surg Room 320-01. Patient/family oriented to hospital policies and general routines including ID bracelet, bed and alarms, visiting hours, pain management, procedures, bathroom and other care routines, personal items, smoking policy, room service/diet, and visiting hours. Information on how to activate the Rapid Response Team has been discussed. Patient/Family are encouraged to report perceived risks to care and to ask questions if they do not understand what they are told or what they should do.
[2025-02-01] MEDS: HYDROcodone/acetaminophen (*CRX) 5-325 MG TABLET 1 TAB PO ×2 (14:18→18:00)
--- NOTE | 2025-02-01 16:36 | P.CONGS_ITS ---
Assessment and Plan Assessment and plan (1) Sigmoid diverticulitis: Code(s): K57.32 - Diverticulitis of large intestine without perforation or abscess without bleeding Status: Acute Assessment and Plan: Continue conservative management for now with IV antibiotics, bowel rest, will need interval colonoscopy and likely sigmoid colectomy in 6-8 weeks History of Present Illness Consult details Consult date: 02/01/25 Reason for consult: abdominal pain Requesting physician: Dia Russell APRN Narrative: The patient is a 59-year-old male presenting to the hospital complaining of severe left lower quadrant abdominal pain, poor appetite, nausea. Patient reports that this is very consistent with his episodes of recurrent diverticulitis. Patient reports he has had multiple episodes since 2017. This episode has lasted the last couple of weeks and he has been on p.o. antibiotics without improvement. The patient reports that he has been scheduled to have sigmoid colectomy but due to some issues with the Anand catheter preoperative the case was canceled. Review of Systems 2 Review of Systems: All systems reviewed & are unremarkable except as noted in HPI and below [facility] Social History Social History Smoking status: Never smoker Alcohol intake: current Drinks per week: 4 Substance use: never Substance use type: does not use Do You Feel Safe in your Home?: Yes Lack of Transportation: No Lack of Food: Never True Current Housing: I Have Housing Concerned About Future Housing: No Difficulty Paying Gas/Electric Bills: No Difficulty Paying for Meds: No Currently Unemployed: No Education: Decline to Answer Difficulty w/ Childcare or Family Care: No Spiritual care concerns: No Meds Home Medications and Allergies Home Medications Medication Instructions Recorded Confirmed Type amoxicillin 875 mg-potassium 1 tablet PO Q12H 02/01/25 02/01/25 History clavulanate 125 mg tablet losartan 100 1 tablet PO DAILY 02/01/25 02/01/25 History mg-hydrochlorothiazide 12.5 mg tablet rivaroxaban 20 mg tablet (Xarelto) 20 mg PO DAILY 02/01/25 02/01/25 History tizanidine 4 mg tablet 4 mg PO Q8H PRN muscle spasticity 02/01/25 02/01/25 History tramadol 50 mg tablet 50 mg PO BID PRN pain 02/01/25 02/01/25 History Allergies Allergy/AdvReac Type Severity Reaction Status Date / Time No Known Allergies Allergy Verified 02/01/25 08:57 Vital Signs Vital Signs - 24 hr 02/01/25 08:51 02/01/25 09:34 02/01/25 10:00 Temperature 36.4 C Pulse Rate 88 76 63 Respiratory Rate 18 18 15 Blood Pressure 163/96 H 143/87 H 141/85 H Pulse Oximetry 99 95 95 Oxygen Delivery Room Air 02/01/25 10:30 02/01/25 11:33 02/01/25 11:51 Temperature Pulse Rate 73 Respiratory Rate 17 Blood Pressure 132/82 Pulse Oximetry 97 99 98 Oxygen Delivery Room Air 02/01/25 11:55 02/01/25 12:00 02/01/25 14:00 Temperature 35.7 C L Pulse Rate 78 76 Respiratory Rate 16 18 Blood Pressure 139/88 130/80 Pulse Oximetry 96 98 98 Oxygen Delivery Exam 2 Const: General: cooperative, no acute distress and uncomfortable HENMT: Head: normal to inspection, normocephalic and atraumatic Eyes: General: appearance normal, both eyes and all related structures Neck: Neck: normal visual inspection, full ROM and no lymphadenopathy Resp: Auscultation: clear to auscultation bilaterally Cardio: Rate: regular rate Rhythm: regular rhythm GI: Inspection: normal to inspection and distended GI Palp: Yes abdominal tenderness, Yes Soft to palpation, Yes Tenderness to palpation present (GI), No Guarding due to palpation present (GI) and No Rigid due to palpation Skin: General skin exam: normal color and no rashes or lesions noted Neuro: General: patient oriented x3 and CN's II-XI intact bilaterally Extrem: General: normal to inspection and full ROM Results Labs 02/01/25 09:00 02/01/25 09:00 Labs: Abnormal lab results 02/01/25 Range/Units 09:00 WBC 15.1 H (4.5-10.0) K/mm3 Neut % (Auto) 79.4 H (45.5-73.1) % Lymph % (Auto) 11.2 L (18.3-44.2) % [place] # (Auto) 0.9 H (0.1-0.6) K/mm3 Eos # (Auto) 0.4 H (0-0.3) K/mm3 Abs Immat Gran (auto) 0.06 H (0.00-0.031) K/mm3 Absolute Neuts (auto) 12.0 H (1.3-6.7) K/mm3 BUN 8 L (9-20) mg/dL Diabetes panel 02/01/25 Range/Units 09:00 Sodium 137 (137-145) mmol/L Potassium 4.0 (3.4-5.0) mmol/L Chloride 98 (98-107) mmol/L Carbon Dioxide 28 (22-30) mmol/L BUN 8 L (9-20) mg/dL Creatinine 1.07 (0.7-1.3) mg/dL Glucose 105 (65-110) mg/dL Calcium 9.2 (8.4-10.2) mg/dL AST 27 (17-59) U/L ALT 22 (6-50) U/L Alkaline Phosphatase 119 (38-126) U/L Total Protein 8.0 (6.3-8.2) g/dL Albumin 4.5 (3.5-5.1) g/dL Calcium panel 02/01/25 Range/Units 09:00 Calcium 9.2 (8.4-10.2) mg/dL Albumin 4.5 (3.5-5.1) g/dL Pituitary panel 02/01/25 Range/Units 09:00 Sodium 137 (137-145) mmol/L Potassium 4.0 (3.4-5.0) mmol/L Chloride 98 (98-107) mmol/L Carbon Dioxide 28 (22-30) mmol/L BUN 8 L (9-20) mg/dL Creatinine 1.07 (0.7-1.3) mg/dL Glucose 105 (65-110) mg/dL Calcium 9.2 (8.4-10.2) mg/dL Adrenal panel 02/01/25 Range/Units 09:00 Sodium 137 (137-145) mmol/L Potassium 4.0 (3.4-5.0) mmol/L Chloride 98 (98-107) mmol/L Carbon Dioxide 28 (22-30) mmol/L BUN 8 L (9-20) mg/dL Creatinine 1.07 (0.7-1.3) mg/dL Glucose 105 (65-110) mg/dL Calcium 9.2 (8.4-10.2) mg/dL Total Bilirubin 1.1 (0.2-1.3) mg/dL AST 27 (17-59) U/L ALT 22 (6-50) U/L Alkaline Phosphatase 119 (38-126) U/L Total Protein 8.0 (6.3-8.2) g/dL Albumin 4.5 (3.5-5.1) g/dL All other labs normal. Imaging Abdomen CT scan report/results: report reviewed and image reviewed
[2025-02-02] MEDS: HYDROcodone/acetaminophen (*CRX) 5-325 MG TABLET 1 TAB PO ×4 (02:00→17:24)
[2025-02-02 05:37] VITALS: BP 119/88; PULSE 81; RESP 18; TEMP 36.5; O2SAT 94
[2025-02-02 06:05] LABS: Basophils Absolute Auto 0.1 K/mm3 (0.0-0.1); Basophils Percent Auto 0.6 % (0.2-1.2); Eosinophils Absolute Auto 0.4 K/mm3 (0-0.3); Eosinophils Percent Auto 4.4 % (0-4.4); Hematocrit 42.8 % (42.0-52.0); Hemoglobin 14.2 g/dL (14.0-18.0); Immature Granulocyte Absolute 0.05 K/mm3 (0.00-0.031); Immature Granulocyte Percent A 0.5 % (0-0.5); Lymphocytes Absolute Auto 1.76 K/mm3 (0.9-3.2); Lymphocytes Percent Auto 18.3 % (18.3-44.2); Mean Corpuscular HGB Conc 33.2 g/dl (32-36); Mean Corpuscular Hemoglobin 31.5 pg (26-34); Mean Corpuscular Volume 94.9 fl (80-100); Mean Platelet Volume 8.1 fl (7.4-10.4); Monocytes Absolute Auto 0.6 K/mm3 (0.1-0.6); Monocytes Percent Auto 5.8 % (2.6-8.5); Neutrophils Absolute Auto 6.8 K/mm3 (1.3-6.7); Neutrophils Percent Auto 70.4 % (45.5-73.1); Platelet Count Result 211 k/mm3 (150-375); Red Blood Count 4.51 M/mm3 (4.6-6.20); Red Cell Distribution Width 11.9 % (11.5-14.5); White Blood Count 9.6 K/mm3 (4.5-10.0)
[2025-02-02] MEDS: PIPERACILLN/TAZ 3.375GM/NS50ML 3.375 GM/50 ML BAG IVPB ×3 (06:11→16:59)
[2025-02-02 06:32] LABS: Anion Gap 10 mmol/L (4-12); Blood Urea Nitrogen 7 mg/dL (9-20); Calcium 8.6 mg/dL (8.4-10.2); Carbon Dioxide 27 mmol/L (22-30); Chloride 98 mmol/L (98-107); Estimated CRCL calculation 70 ml/min; Estimated Glomerular Filt Rate > 60; Glucose 101 mg/dL (65-110); Potassium 3.5 mmol/L (3.4-5.0); Sodium 135 mmol/L (137-145)
--- NOTE | 2025-02-02 07:29 | P.PNGS_ITS ---
Progress Note: A&P Assessment and Plan (1) Sigmoid diverticulitis: Code(s): K57.32 - Diverticulitis of large intestine without perforation or abscess without bleeding Status: Acute Assessment and Plan: exam improved and leukocytosis resolved, continue antibiotics, advance to low fiber diet Subjective Subjective Date/Time Seen: 02/02/25 07:29 Interval history: feels better, pain improved Review of Systems Review of Systems: All systems reviewed & are unremarkable except as noted in HPI and below Exam Const: General: cooperative, comfortable and no acute distress Resp: Auscultation: clear to auscultation bilaterally Cardio: Rate: regular rate Rhythm: regular rhythm GI: Inspection: normal to inspection and non-distended GI Palp: No abdominal tenderness and Yes Soft to palpation Objective Data Vital Signs Vital Signs: Vital Signs - 24 hr 02/01/25 08:51 02/01/25 09:34 02/01/25 10:00 Temperature 36.4 C Pulse Rate 88 76 63 Respiratory Rate 18 18 15 Blood Pressure 163/96 H 143/87 H 141/85 H Pulse Oximetry 99 95 95 Oxygen Delivery Room Air 02/01/25 10:30 02/01/25 11:33 02/01/25 11:51 Temperature Pulse Rate 73 Respiratory Rate 17 Blood Pressure 132/82 Pulse Oximetry 97 99 98 Oxygen Delivery Room Air 02/01/25 11:55 02/01/25 12:00 02/01/25 14:00 Temperature 35.7 C L Pulse Rate 78 76 Respiratory Rate 16 18 Blood Pressure 139/88 130/80 Pulse Oximetry 96 98 98 Oxygen Delivery 02/01/25 20:20 02/01/25 20:46 02/02/25 05:37 Temperature 36.2 C L 36.5 C Pulse Rate 85 85 81 Respiratory Rate 16 16 18 Blood Pressure 128/85 119/88 Pulse Oximetry 97 97 94 Oxygen Delivery Room Air Intake/Output Intake/Output: Intake & Output 01/30/25 01/31/25 02/01/25 02/02/25 23:59 23:59 23:59 23:59 Intake Total 390 Balance 390 Meds/Results Medications: Active Medications Generic Name Dose Route Start Last Admin Trade Name Freq PRN Reason Stop Dose Admin Hydrocodone Bitart/Acetaminophen 1 tab 02/01/25 12:28 02/02/25 06:11 Hydrocodone/Acetaminophen (*Crx) 5-325 Mg Tablet PO 1 tab Q4H PRN Administration Moderate Pain (4-6) Hydrochlorothiazide 12.5 mg 02/02/25 09:00 Hydrochlorothiazide 12.5 Mg Capsule PO DAILY [facility] Piperacillin/Tazobactam/Dextrose 3.375 gm in 50 mls @ 100 mls/hr 02/01/25 18:00 02/02/25 06:11 Zosyn 3.375 Gm/Ns 50 Ml IVPB 100 mls/hr Q6H ANNETTE Administration Losartan Potassium 100 mg 02/02/25 09:00 Losartan Potassium 100 Mg Tablet PO DAILY [facility] Morphine Sulfate 4 mg 02/01/25 11:27 Morphine Sulfate (*Crx) 4 Mg/Ml Inj IV PUSH Q2H PRN Pain Rated 7-10 Ondansetron HCl 4 mg 02/01/25 11:27 Ondansetron Inj 4 Mg/2 Ml Vial IV PUSH Q4H PRN Nausea Rivaroxaban 20 mg 02/02/25 09:00 Rivaroxaban 20 Mg Tablet PO DAILY [facility] Tizanidine HCl 4 mg 02/01/25 18:24 Tizanidine Hcl 4 Mg Tablet PO Q8H PRN muscle spasticity Radiology Results: ITS Impressions Abdomen/Pelvis CT 02/01/25 10:58 Impression: Acute sigmoid diverticulitis. No abscess or free air. Labs Labs: Laboratory Results - last 24 hr 02/01/25 02/01/25 02/02/25 09:00 09:39 05:38 WBC 15.1 H 9.6 RBC 5.09 4.51 L Hgb 16.4 14.2 Hct 46.7 42.8 MCV 91.7 94.9 MCH 32.2 31.5 MCHC 35.1 33.2 RDW 11.8 11.9 Plt Count 256 211 MPV 8.0 8.1 Immature Gran % (Auto) 0.4 0.5 Neut % (Auto) 79.4 H 70.4 Lymph % (Auto) 11.2 L 18.3 [place] % (Auto) 5.9 5.8 Eos % (Auto) 2.6 4.4 Baso % (Auto) 0.5 0.6 Lymph # (Auto) 1.69 1.76 [place] # (Auto) 0.9 H 0.6 Eos # (Auto) 0.4 H 0.4 H Baso # (Auto) 0.1 0.1 Abs Immat Gran (auto) 0.06 H 0.05 H Absolute Neuts (auto) 12.0 H 6.8 H Absolute Nucleated RBC 0.000 0.000 Nucleated RBC % 0.0 0.0 Sodium 137 135 L Potassium 4.0 3.5 Chloride 98 98 Carbon Dioxide 28 27 Anion Gap 11 10 BUN 8 L 7 L Creatinine 1.07 1.06 Estim Creat Clear Calc 69 70 Estimated GFR > 60 > 60 Glucose 105 101 Lactic Acid 1.1 Calcium 9.2 8.6 Total Bilirubin 1.1 AST 27 ALT 22 Alkaline Phosphatase 119 Total Protein 8.0 Albumin 4.5 Lipase 119 Urine Color Yellow Urine Appearance Clear Urine pH 6.0 Ur Specific [place] 1.015 Urine Protein Negative Urine Glucose (UA) Negative Urine Ketones Negative Ur Blood (Man) Negative Urine Nitrate Negative Urine Bilirubin Negative Urine Urobilinogen 0.2 Leukocyte Esterase Rfl Negative
[2025-02-02 08:58] VITALS: BP 126/88
[2025-02-02] MEDS: RIVAROXABAN 20 MG TABLET PO (08:59)
[2025-02-02] MEDS: hydroCHLOROthiazide 12.5 MG CAPSULE PO (08:59)
[2025-02-02] MEDS: LOSARTAN POTASSIUM 100 MG TABLET PO (08:59)
--- NOTE | 2025-02-02 11:21 | P.PNIM_ITS ---
Progress Note: A&P Assessment and Plan (1) Sigmoid diverticulitis: Code(s): K57.32 - Diverticulitis of large intestine without perforation or abscess without bleeding Status: Acute Assessment and Plan: Zosyn and IVF, Low fat diet Leukocytosis resolved Pain management Blood cultures pending Surgery following recommending eventual colectomy Plan DVT prophylaxis on Sq Lovenox Subjective Date/time seen: 02/02/25 11:21 Interval history: Patient noted improvement in symptoms noted semi-solid stools and abd pain improving Review of Systems Review of Systems: 12 systems were reviewed and are negativ e except for as per HPI. Exam Narrative: General: well appearing, appears stated age. HEENT: normocephalic, atraumatic. Mucous membranes moist. EOMI, PERRLA, bilateral sclera anicteric, no conjunctival injection. Neck supple without JVD, lymphadenopathy, or bruit. Respiratory: clear to ascultation bilaterally. No rales/rhonic/wheezes. Cardiovascular: Regular rate and rhythm, normal S1-S2 upon ascultation. No murmurs, rubs, or clicks. PMI is nondisplaced, capillary refill less than 3 second. Abdomen: Soft, round, no pulsatile masses, nondistended No rebound, no guarding. No CVA tenderness, no hepatosplenomegaly. Bowel sounds present to all four quadrants. No high pitch or tinkling sounds, resonant to percussion. Lower abdominal pain on palpation Extremities: No cyanosis, clubbing, or edema present. Pulses are palpable 2/2. Active ROM to all four extremities. Neuro: Alert and orientated x 4. PERRLA. Cranial nerves 2-12 intact without focal deficit. Skin: Warm, dry, and intact, without rash, erythema, or lesion. Psych: pleasant, cooperative, normal speech, normal affect, no hallucinations, no dysarthia Objective Data Vital Signs Vital Signs: Vital Signs - 24 hr 02/01/25 11:33 02/01/25 11:51 02/01/25 11:55 Temperature Pulse Rate Respiratory Rate Blood Pressure Pulse Oximetry 99 98 96 Oxygen Delivery Room Air 02/01/25 12:00 02/01/25 14:00 02/01/25 20:20 Temperature 96.3 F L Pulse Rate 78 76 85 Respiratory Rate 16 18 16 Blood Pressure 139/88 130/80 Pulse Oximetry 98 98 97 Oxygen Delivery Room Air 02/01/25 20:46 02/02/25 05:37 02/02/25 08:58 Temperature 97.2 F L 97.7 F Pulse Rate 85 81 Respiratory Rate 16 18 Blood Pressure 128/85 119/88 126/88 Pulse Oximetry 97 94 Oxygen Delivery Intake/Output Intake/Output: Intake & Output 01/30/25 01/31/25 02/01/25 02/02/25 23:59 23:59 23:59 23:59 Intake Total 390 240 Balance 390 240 Meds/Results Medications: Active Medications Generic Name Dose Route Start Last Admin Trade Name Freq PRN Reason Stop Dose Admin Hydrocodone Bitart/Acetaminophen 1 tab 02/01/25 12:28 02/02/25 06:11 Hydrocodone/Acetaminophen (*Crx) 5-325 Mg Tablet PO 1 tab Q4H PRN Administration Moderate Pain (4-6) Hydrochlorothiazide 12.5 mg 02/02/25 09:00 02/02/25 08:59 Hydrochlorothiazide 12.5 Mg Capsule PO 12.5 mg DAILY ANNETTE Administration Piperacillin/Tazobactam/Dextrose 3.375 gm in 50 mls @ 100 mls/hr 02/01/25 18:00 02/02/25 06:11 Zosyn 3.375 Gm/Ns 50 Ml IVPB 100 mls/hr Q6H ANNETTE Administration Losartan Potassium 100 mg 02/02/25 09:00 02/02/25 08:59 Losartan Potassium 100 Mg Tablet PO 100 mg DAILY ANNETTE Administration Morphine Sulfate 4 mg 02/01/25 11:27 Morphine Sulfate (*Crx) 4 Mg/Ml Inj IV PUSH Q2H PRN Pain Rated 7-10 Ondansetron HCl 4 mg 02/01/25 11:27 Ondansetron Inj 4 Mg/2 Ml Vial IV PUSH Q4H PRN Nausea Rivaroxaban 20 mg 02/02/25 09:00 02/02/25 08:59 Rivaroxaban 20 Mg Tablet PO 20 mg DAILY ANNETTE Administration Tizanidine HCl 4 mg 02/01/25 18:24 Tizanidine Hcl 4 Mg Tablet PO Q8H PRN muscle spasticity Radiology Results: ITS Impressions Abdomen/Pelvis CT 02/01/25 10:58 Impression: Acute sigmoid diverticulitis. No abscess or free air. Labs Labs: Laboratory Results - last 24 hr 02/02/25 05:38 WBC 9.6 RBC 4.51 L Hgb 14.2 Hct 42.8 MCV 94.9 MCH 31.5 MCHC 33.2 RDW 11.9 Plt Count 211 MPV 8.1 Immature Gran % (Auto) 0.5 Neut % (Auto) 70.4 Lymph % (Auto) 18.3 [place] % (Auto) 5.8 Eos % (Auto) 4.4 Baso % (Auto) 0.6 Lymph # (Auto) 1.76 [place] # (Auto) 0.6 Eos # (Auto) 0.4 H Baso # (Auto) 0.1 Abs Immat Gran (auto) 0.05 H Absolute Neuts (auto) 6.8 H Absolute Nucleated RBC 0.000 Nucleated RBC % 0.0 Sodium 135 L Potassium 3.5 Chloride 98 Carbon Dioxide 27 Anion Gap 10 BUN 7 L Creatinine 1.06 Estim Creat Clear Calc 70 Estimated GFR > 60 Glucose 101 Calcium 8.6 Quality VTE Prophylaxis VTE prophylaxis: mechanical ordered and pharmacologic ordered
[2025-02-02 14:00] VITALS: BP 103/59; PULSE 98; RESP 18; O2SAT 97
[2025-02-02 20:00] VITALS: PULSE 82; RESP 18; O2SAT 96
[2025-02-02 21:46] VITALS: BP 139/89; PULSE 82; RESP 18; TEMP 36.2; O2SAT 96
[2025-02-03 02:11] VITALS: PULSE 74; RESP 20; O2SAT 94
[2025-02-03] MEDS: PIPERACILLN/TAZ 3.375GM/NS50ML 3.375 GM/50 ML BAG IVPB ×5 (05:34→23:48)
[2025-02-03] MEDS: HYDROcodone/acetaminophen (*CRX) 5-325 MG TABLET 1 TAB PO ×2 (05:39→14:42)
[2025-02-03 05:47] VITALS: BP 133/76; PULSE 78; RESP 18; TEMP 36.2; O2SAT 95
--- NOTE | 2025-02-03 08:41 | P.PNGS_ITS ---
Progress Note: A&P Assessment and Plan (1) Sigmoid diverticulitis: Code(s): K57.32 - Diverticulitis of large intestine without perforation or abscess without bleeding Status: Acute Assessment and Plan: Recurrent pain with solid food. Tender with guarding on exam. Will cut back to clear liquids today. If improved tomorrow, advance diet. Patient is interested in sigmoid resection electively. We will discuss this as his present illness improves and as an outpatient. (2) History of pulmonary embolism: Code(s): Z86.711 - Personal history of pulmonary embolism Status: Acute Assessment and Plan: Occurred with extensive right leg DVT in 2022. Told to stay on Xarelto for life. 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 No need for an Lovenox or SCDs while he is anticoagulated. Subjective Subjective Date/Time Seen: 02/03/25 08:41 Patient reports: still having pain (Suprapubic pain came back after eating low- fiber diet yesterday. Still hurting but less severe.), no bowel movement and afebrile Review of Systems Review of Systems: All systems reviewed & are unremarkable except as noted in HPI and below (HPI) Exam Const: General: comfortable, alert and awake GI: Inspection: non-distended and scaphoid GI Palp: Yes Soft to palpation, Yes Tenderness to palpation present (GI) (Suprapubic tenderness with some guarding) and Yes Guarding due to palpation present (GI) Objective Data Vital Signs Vital Signs: Vital Signs - 24 hr 02/02/25 08:58 02/02/25 14:00 02/02/25 20:00 Temperature Pulse Rate 98 82 Respiratory Rate 18 18 Blood Pressure 126/88 103/59 L Pulse Oximetry 97 96 Oxygen Delivery Room Air Fraction of Inspired Oxygen 02/02/25 21:46 02/03/25 02:11 02/03/25 05:47 Temperature 36.2 C L 36.2 C L Pulse Rate 82 74 78 Respiratory Rate 18 20 18 Blood Pressure 139/89 133/76 Pulse Oximetry 96 94 95 Oxygen Delivery Room Air Fraction of Inspired Oxygen 21 Intake/Output Intake/Output: Intake & Output 01/31/25 02/01/25 02/02/25 02/03/25 23:59 23:59 23:59 23:59 Intake Total 390 630 150 Balance 390 630 150 Meds/Results Medications: Active Medications Generic Name Dose Route Start Last Admin Trade Name Freq PRN Reason Stop Dose Admin Hydrocodone Bitart/Acetaminophen 1 tab 02/01/25 12:28 02/03/25 05:39 Hydrocodone/Acetaminophen (*Crx) 5-325 Mg Tablet PO 1 tab Q4H PRN Administration Moderate Pain (4-6) Hydrochlorothiazide 12.5 mg 02/02/25 09:00 02/02/25 08:59 Hydrochlorothiazide 12.5 Mg Capsule PO 12.5 mg DAILY ANNETTE Administration Piperacillin/Tazobactam/Dextrose 3.375 gm in 50 mls @ 100 mls/hr 02/01/25 18:00 02/03/25 05:34 Zosyn 3.375 Gm/Ns 50 Ml IVPB 100 mls/hr Q6H ANNETTE Administration Losartan Potassium 100 mg 02/02/25 09:00 02/02/25 08:59 Losartan Potassium 100 Mg Tablet PO 100 mg DAILY ANNETTE Administration Morphine Sulfate 4 mg 02/01/25 11:27 Morphine Sulfate (*Crx) 4 Mg/Ml Inj IV PUSH Q2H PRN Pain Rated 7-10 Ondansetron HCl 4 mg 02/01/25 11:27 Ondansetron Inj 4 Mg/2 Ml Vial IV PUSH Q4H PRN Nausea Rivaroxaban 20 mg 02/02/25 09:00 02/02/25 08:59 Rivaroxaban 20 Mg Tablet PO 20 mg DAILY ANNETTE Administration Tizanidine HCl 4 mg 02/01/25 18:24 Tizanidine Hcl 4 Mg Tablet PO Q8H PRN muscle spasticity Radiology Results: ITS Impressions Abdomen/Pelvis CT 02/01/25 10:58 Impression: Acute sigmoid diverticulitis. No abscess or free air.
[2025-02-03] MEDS: hydroCHLOROthiazide 12.5 MG CAPSULE PO (08:53)
[2025-02-03] MEDS: RIVAROXABAN 20 MG TABLET PO (08:53)
[2025-02-03] MEDS: LOSARTAN POTASSIUM 100 MG TABLET PO (08:54)
--- NOTE | 2025-02-03 13:16 | P.PNIM_ITS ---
Progress Note: A&P Assessment and Plan (1) Sigmoid diverticulitis: Code(s): K57.32 - Diverticulitis of large intestine without perforation or abscess without bleeding Status: Acute Assessment and Plan: Zosyn and IVF, did not tolerate low fat diet Now on downgraded to clear liquid diet Pain management Blood cultures pending Surgery following recommending eventual colectomy Plan DVT prophylaxis on Sq Lovenox Subjective Date/time seen: 02/03/25 13:16 Interval history: Patient unable to tolerated regular diet due to pain Review of Systems Review of Systems: 12 systems were reviewed and are negativ e except for as per HPI. Exam Narrative: General: well appearing, appears stated age. HEENT: normocephalic, atraumatic. Mucous membranes moist. EOMI, PERRLA, bilateral sclera anicteric, no conjunctival injection. Neck supple without JVD, lymphadenopathy, or bruit. Respiratory: clear to ascultation bilaterally. No rales/rhonic/wheezes. Cardiovascular: Regular rate and rhythm, normal S1-S2 upon ascultation. No murmurs, rubs, or clicks. PMI is nondisplaced, capillary refill less than 3 second. Abdomen: Soft, round, no pulsatile masses, nondistended No rebound, no guarding. No CVA tenderness, no hepatosplenomegaly. Bowel sounds present to all four quadrants. No high pitch or tinkling sounds, resonant to percussion. Lower abdominal pain on palpation Extremities: No cyanosis, clubbing, or edema present. Pulses are palpable 2/2. Active ROM to all four extremities. Neuro: Alert and orientated x 4. PERRLA. Cranial nerves 2-12 intact without focal deficit. Skin: Warm, dry, and intact, without rash, erythema, or lesion. Psych: pleasant, cooperative, normal speech, normal affect, no hallucinations, no dysarthia Objective Data Vital Signs Vital Signs: Vital Signs - 24 hr 02/02/25 14:00 02/02/25 20:00 02/02/25 21:46 Temperature 97.1 F L Pulse Rate 98 82 82 Respiratory Rate 18 18 18 Blood Pressure 103/59 L 139/89 Pulse Oximetry 97 96 96 Oxygen Delivery Room Air Fraction of Inspired Oxygen 02/03/25 02:11 02/03/25 05:47 02/03/25 08:00 Temperature 97.2 F L Pulse Rate 74 78 Respiratory Rate 20 18 Blood Pressure 133/76 Pulse Oximetry 94 95 Oxygen Delivery Room Air Room Air Fraction of Inspired Oxygen 21 Intake/Output Intake/Output: Intake & Output 01/31/25 02/01/25 02/02/25 02/03/25 23:59 23:59 23:59 23:59 Intake Total 390 630 558 Balance 390 630 558 Meds/Results Medications: Active Medications Generic Name Dose Route Start Last Admin Trade Name Freq PRN Reason Stop Dose Admin Hydrocodone Bitart/Acetaminophen 1 tab 02/01/25 12:28 02/03/25 05:39 Hydrocodone/Acetaminophen (*Crx) 5-325 Mg Tablet PO 1 tab Q4H PRN Administration Moderate Pain (4-6) Hydrochlorothiazide 12.5 mg 02/02/25 09:00 02/03/25 08:53 Hydrochlorothiazide 12.5 Mg Capsule PO 12.5 mg DAILY ANNETTE Administration Piperacillin/Tazobactam/Dextrose 3.375 gm in 50 mls @ 100 mls/hr 02/01/25 18:00 02/03/25 12:20 Zosyn 3.375 Gm/Ns 50 Ml IVPB 100 mls/hr Q6H ANNETTE Administration Losartan Potassium 100 mg 02/02/25 09:00 02/03/25 08:54 Losartan Potassium 100 Mg Tablet PO 100 mg DAILY ANNETTE Administration Morphine Sulfate 4 mg 02/01/25 11:27 Morphine Sulfate (*Crx) 4 Mg/Ml Inj IV PUSH Q2H PRN Pain Rated 7-10 Ondansetron HCl 4 mg 02/01/25 11:27 Ondansetron Inj 4 Mg/2 Ml Vial IV PUSH Q4H PRN Nausea Rivaroxaban 20 mg 02/02/25 09:00 02/03/25 08:53 Rivaroxaban 20 Mg Tablet PO 20 mg DAILY ANNETTE Administration Tizanidine HCl 4 mg 02/01/25 18:24 Tizanidine Hcl 4 Mg Tablet PO Q8H PRN muscle spasticity Radiology Results: ITS Impressions Abdomen/Pelvis CT 02/01/25 10:58 Impression: Acute sigmoid diverticulitis. No abscess or free air. Quality VTE Prophylaxis VTE prophylaxis: mechanical ordered and pharmacologic ordered
[2025-02-03 13:51] VITALS: BP 124/74; PULSE 85; RESP 14; TEMP 36.2; O2SAT 98
[2025-02-03 20:35] VITALS: BP 121/73; PULSE 78; RESP 16; TEMP 36.3; O2SAT 98
[2025-02-04] MEDS: PIPERACILLN/TAZ 3.375GM/NS50ML 3.375 GM/50 ML BAG IVPB ×3 (05:10→18:02)
[2025-02-04 05:50] VITALS: BP 121/78; PULSE 72; RESP 20; TEMP 36.3; O2SAT 96
[2025-02-04 06:59] LABS: Hematocrit 45.2 % (42.0-52.0); Hemoglobin 14.8 g/dL (14.0-18.0); Mean Corpuscular HGB Conc 32.7 g/dl (32-36); Mean Corpuscular Hemoglobin 31.6 pg (26-34); Mean Corpuscular Volume 96.4 fl (80-100); Mean Platelet Volume 8.1 fl (7.4-10.4); Platelet Count Result 220 k/mm3 (150-375); Red Blood Count 4.69 M/mm3 (4.6-6.20); Red Cell Distribution Width 11.9 % (11.5-14.5)
[2025-02-04 07:10] LABS: Anion Gap 8 mmol/L (4-12); Blood Urea Nitrogen 7 mg/dL (9-20); CRP 3.5 mg/dL (<1.0); Calcium 9.1 mg/dL (8.4-10.2); Carbon Dioxide 31 mmol/L (22-30); Chloride 100 mmol/L (98-107); Estimated CRCL calculation 64 ml/min; Estimated Glomerular Filt Rate > 60; Glucose 102 mg/dL (65-110); Potassium 3.4 mmol/L (3.4-5.0); Sodium 139 mmol/L (137-145)
--- NOTE | 2025-02-04 07:19 | P.PNGS_ITS ---
Progress Note: A&P Assessment and Plan (1) Sigmoid diverticulitis: Code(s): K57.32 - Diverticulitis of large intestine without perforation or abscess without bleeding Status: Acute Assessment and Plan: No pain at all yesterday. Try low-fiber diet a again today. White count remains normal and electrolytes look good. Possibly home tomorrow. (2) Chronic anticoagulation: Code(s): Z79.01 - residential (current) use of anticoagulants Status: Acute Assessment and Plan: Continue Xarelto (3) History of pulmonary embolism: Code(s): Z86.711 - Personal history of pulmonary embolism Status: Chronic Subjective Subjective Date/Time Seen: 02/04/25 07:19 Patient reports: no new complaints, pain is less, tolerating liquids well and afebrile Review of Systems Review of Systems: All systems reviewed & are unremarkable except as noted in HPI and below (HPI) Exam GI: Inspection: normal to inspection, non-distended and scaphoid GI Palp: Yes Soft to palpation, No Tenderness to palpation present (GI) and No Guarding due to palpation present (GI) Objective Data Vital Signs Vital Signs: Vital Signs - 24 hr 02/03/25 08:00 02/03/25 13:51 02/03/25 20:35 Temperature 36.2 C L 36.3 C L Pulse Rate 85 78 Respiratory Rate 14 16 Blood Pressure 124/74 121/73 Pulse Oximetry 98 98 Oxygen Delivery Room Air 02/04/25 05:50 Temperature 36.3 C L Pulse Rate 72 Respiratory Rate 20 Blood Pressure 121/78 Pulse Oximetry 96 Oxygen Delivery Intake/Output Intake/Output: Intake & Output 02/01/25 02/02/25 02/03/25 02/04/25 23:59 23:59 23:59 23:59 Intake Total 363 240 9694 50 Balance 473 036 4696 50 Meds/Results Medications: Active Medications Generic Name Dose Route Start Last Admin Trade Name Freq PRN Reason Stop Dose Admin Hydrocodone Bitart/Acetaminophen 1 tab 02/01/25 12:28 02/03/25 14:42 Hydrocodone/Acetaminophen (*Crx) 5-325 Mg Tablet PO 1 tab Q4H PRN Administration Moderate Pain (4-6) Hydrochlorothiazide 12.5 mg 02/02/25 09:00 02/03/25 08:53 Hydrochlorothiazide 12.5 Mg Capsule PO 12.5 mg DAILY ANNETTE Administration Piperacillin/Tazobactam/Dextrose 3.375 gm in 50 mls @ 100 mls/hr 02/01/25 18:00 02/04/25 05:10 Zosyn 3.375 Gm/Ns 50 Ml IVPB 100 mls/hr Q6H ANNETTE Administration Losartan Potassium 100 mg 02/02/25 09:00 02/03/25 08:54 Losartan Potassium 100 Mg Tablet PO 100 mg DAILY ANNETTE Administration Morphine Sulfate 4 mg 02/01/25 11:27 Morphine Sulfate (*Crx) 4 Mg/Ml Inj IV PUSH Q2H PRN Pain Rated 7-10 Ondansetron HCl 4 mg 02/01/25 11:27 Ondansetron Inj 4 Mg/2 Ml Vial IV PUSH Q4H PRN Nausea Rivaroxaban 20 mg 02/02/25 09:00 02/03/25 08:53 Rivaroxaban 20 Mg Tablet PO 20 mg DAILY ANNETTE Administration Tizanidine HCl 4 mg 02/01/25 18:24 Tizanidine Hcl 4 Mg Tablet PO Q8H PRN muscle spasticity Radiology Results: ITS Impressions Abdomen/Pelvis CT 02/01/25 10:58 Impression: Acute sigmoid diverticulitis. No abscess or free air. Labs Labs: Laboratory Results - last 24 hr 02/04/25 06:18 WBC 9.0 RBC 4.69 Hgb 14.8 Hct 45.2 MCV 96.4 MCH 31.6 MCHC 32.7 RDW 11.9 Plt Count 220 MPV 8.1 Sodium 139 Potassium 3.4 Chloride 100 Carbon Dioxide 31 H Anion Gap 8 BUN 7 L Creatinine 1.17 Estim Creat Clear Calc 64 Estimated GFR > 60 Glucose 102 Calcium 9.1 C-Reactive Protein 3.5 H
[2025-02-04] MEDS: hydroCHLOROthiazide 12.5 MG CAPSULE PO (09:31)
[2025-02-04] MEDS: LOSARTAN POTASSIUM 100 MG TABLET PO (09:31)
[2025-02-04] MEDS: RIVAROXABAN 20 MG TABLET PO (09:31)
--- NOTE | 2025-02-04 12:16 | P.PNIM_ITS ---
Progress Note: A&P Assessment and Plan (1) Sigmoid diverticulitis: Code(s): K57.32 - Diverticulitis of large intestine without perforation or abscess without bleeding Status: Acute Assessment and Plan: Zosyn and IVF, to trial low fat diet today Pain management Blood cultures negative so far Surgery following recommending eventual colectomy Plan DVT prophylaxis on Sq Lovenox Subjective Date/time seen: 02/04/25 12:16 Interval history: tolerated full liquid diet will try low fat diet today Review of Systems Review of Systems: 12 systems were reviewed and are negativ e except for as per HPI. Exam Narrative: General: well appearing, appears stated age. HEENT: normocephalic, atraumatic. Mucous membranes moist. EOMI, PERRLA, bilateral sclera anicteric, no conjunctival injection. Neck supple without JVD, lymphadenopathy, or bruit. Respiratory: clear to ascultation bilaterally. No rales/rhonic/wheezes. Cardiovascular: Regular rate and rhythm, normal S1-S2 upon ascultation. No murmurs, rubs, or clicks. PMI is nondisplaced, capillary refill less than 3 second. Abdomen: Soft, round, no pulsatile masses, nondistended No rebound, no guarding. No CVA tenderness, no hepatosplenomegaly. Bowel sounds present to all four quadrants. No high pitch or tinkling sounds, resonant to percussion. Lower abdominal pain on palpation Extremities: No cyanosis, clubbing, or edema present. Pulses are palpable 2/2. Active ROM to all four extremities. Neuro: Alert and orientated x 4. PERRLA. Cranial nerves 2-12 intact without focal deficit. Skin: Warm, dry, and intact, without rash, erythema, or lesion. Psych: pleasant, cooperative, normal speech, normal affect, no hallucinations, no dysarthia Objective Data Vital Signs Vital Signs: Vital Signs - 24 hr 02/03/25 13:51 02/03/25 20:35 02/04/25 05:50 Temperature 97.1 F L 97.4 F L 97.4 F L Pulse Rate 85 78 72 Respiratory Rate 14 16 20 Blood Pressure 124/74 121/73 121/78 Pulse Oximetry 98 98 96 Oxygen Delivery 02/04/25 09:30 Temperature Pulse Rate Respiratory Rate Blood Pressure Pulse Oximetry Oxygen Delivery Room Air Intake/Output Intake/Output: Intake & Output 02/01/25 02/02/25 02/03/25 02/04/25 23:59 23:59 23:59 23:59 Intake Total 075 077 8670 290 Balance 145 151 7590 290 Meds/Results Medications: Active Medications Generic Name Dose Route Start Last Admin Trade Name Freq PRN Reason Stop Dose Admin Hydrocodone Bitart/Acetaminophen 1 tab 02/01/25 12:28 02/03/25 14:42 Hydrocodone/Acetaminophen (*Crx) 5-325 Mg Tablet PO 1 tab Q4H PRN Administration Moderate Pain (4-6) Hydrochlorothiazide 12.5 mg 02/02/25 09:00 02/04/25 09:31 Hydrochlorothiazide 12.5 Mg Capsule PO 12.5 mg DAILY ANNETTE Administration Piperacillin/Tazobactam/Dextrose 3.375 gm in 50 mls @ 100 mls/hr 02/01/25 18:00 02/04/25 05:10 Zosyn 3.375 Gm/Ns 50 Ml IVPB 100 mls/hr Q6H ANNETTE Administration Losartan Potassium 100 mg 02/02/25 09:00 02/04/25 09:31 Losartan Potassium 100 Mg Tablet PO 100 mg DAILY ANNETTE Administration Morphine Sulfate 4 mg 02/01/25 11:27 Morphine Sulfate (*Crx) 4 Mg/Ml Inj IV PUSH Q2H PRN Pain Rated 7-10 Ondansetron HCl 4 mg 02/01/25 11:27 Ondansetron Inj 4 Mg/2 Ml Vial IV PUSH Q4H PRN Nausea Rivaroxaban 20 mg 02/02/25 09:00 02/04/25 09:31 Rivaroxaban 20 Mg Tablet PO 20 mg DAILY ANNETTE Administration Tizanidine HCl 4 mg 02/01/25 18:24 Tizanidine Hcl 4 Mg Tablet PO Q8H PRN muscle spasticity Radiology Results: ITS Impressions Abdomen/Pelvis CT 02/01/25 10:58 Impression: Acute sigmoid diverticulitis. No abscess or free air. Labs Labs: Laboratory Results - last 24 hr 02/04/25 06:18 WBC 9.0 RBC 4.69 Hgb 14.8 Hct 45.2 MCV 96.4 MCH 31.6 MCHC 32.7 RDW 11.9 Plt Count 220 MPV 8.1 Sodium 139 Potassium 3.4 Chloride 100 Carbon Dioxide 31 H Anion Gap 8 BUN 7 L Creatinine 1.17 Estim Creat Clear Calc 64 Estimated GFR > 60 Glucose 102 Calcium 9.1 C-Reactive Protein 3.5 H Quality VTE Prophylaxis VTE prophylaxis: mechanical ordered and pharmacologic ordered
[2025-02-04 14:00] VITALS: BP 125/77; PULSE 103; RESP 18; TEMP 36.5; O2SAT 99
[2025-02-04 21:44] VITALS: BP 127/92; PULSE 94; RESP 20; TEMP 36.2; O2SAT 97
[2025-02-04 23:24] VITALS: O2SAT 97
[2025-02-05] MEDS: PIPERACILLN/TAZ 3.375GM/NS50ML 3.375 GM/50 ML BAG IVPB ×2 (00:03→05:53)
[2025-02-05 05:59] LABS: Basophils Absolute Auto 0.1 K/mm3 (0.0-0.1); Basophils Percent Auto 0.7 % (0.2-1.2); Eosinophils Absolute Auto 0.5 K/mm3 (0-0.3); Eosinophils Percent Auto 4.7 % (0-4.4); Hematocrit 45.8 % (42.0-52.0); Hemoglobin 15.5 g/dL (14.0-18.0); Immature Granulocyte Absolute 0.05 K/mm3 (0.00-0.031); Immature Granulocyte Percent A 0.4 % (0-0.5); Lymphocytes Absolute Auto 2.33 K/mm3 (0.9-3.2); Lymphocytes Percent Auto 20.5 % (18.3-44.2); Mean Corpuscular HGB Conc 33.8 g/dl (32-36); Mean Corpuscular Hemoglobin 32.2 pg (26-34); Mean Platelet Volume 7.9 fl (7.4-10.4); Monocytes Absolute Auto 0.7 K/mm3 (0.1-0.6); Neutrophils Absolute Auto 7.7 K/mm3 (1.3-6.7); Neutrophils Percent Auto 67.7 % (45.5-73.1); Platelet Count Result 236 k/mm3 (150-375); Red Blood Count 4.82 M/mm3 (4.6-6.20); Red Cell Distribution Width 11.9 % (11.5-14.5); White Blood Count 11.4 K/mm3 (4.5-10.0)
[2025-02-05 06:00] VITALS: BP 125/84; PULSE 88; RESP 16; TEMP 36.2; O2SAT 98
[2025-02-05 06:12] LABS: Alanine Aminotransferase 17 U/L (6-50); Albumin Level 4.3 g/dL (3.5-5.1); Alkaline Phosphatase 69 U/L (38-126); Anion Gap 9 mmol/L (4-12); Aspartate Amino Transferase 29 U/L (17-59); Bilirubin,Total 0.5 mg/dL (0.2-1.3); Blood Urea Nitrogen 7 mg/dL (9-20); Calcium 9.3 mg/dL (8.4-10.2); Carbon Dioxide 31 mmol/L (22-30); Chloride 98 mmol/L (98-107); Estimated CRCL calculation 66 ml/min; Estimated Glomerular Filt Rate > 60; Glucose 103 mg/dL (65-110); Magnesium 1.8 mg/dL (1.6-2.3); Potassium 3.4 mmol/L (3.4-5.0); Sodium 138 mmol/L (137-145)
[2025-02-05 08:00] VITALS: PULSE 69; RESP 16; O2SAT 100
[2025-02-05] MEDS: hydroCHLOROthiazide 12.5 MG CAPSULE PO (08:33)
[2025-02-05] MEDS: RIVAROXABAN 20 MG TABLET PO (08:33)
[2025-02-05] MEDS: LOSARTAN POTASSIUM 100 MG TABLET PO (08:34)
[2025-02-05 08:52] VITALS: BP 129/91; PULSE 69; RESP 16; TEMP 35.7; O2SAT 100
--- NOTE | 2025-02-05 10:06 | P.DS_ITS ---
DS: Admitting Diagnosis Discharge Date 02/05/2025 Admitting Diagnosis Abdominal pain DS: Discharge Diagnosis Discharge Diagnosis (1) Sigmoid diverticulitis: Code(s): K57.32 - Diverticulitis of large intestine without perforation or abscess without bleeding Status: Acute DS: Summary Hospital Course Hospital Course: 59-year-old male presents the hospital with severe abdominal pain. Patient states that he went to his PCP and was prescribed antibiotics for about a week. He said originally he felt better in after being off of it for a few days he started having acute abdominal pain. He went back to Dr. thompson subscript lainez antibiotics for total of 10 days. Today he was unable to eat and his pain was getting worse so he presented to the emergency room. Patient denies nausea or vomiting. Endorses poor appetite. In the ED his lab work shows leukocytosis of 15.1, BMP is within normal limits, UA is within normal limits, CT abdomen pelvis shows acute sigmoid diverticulitis with no abscess or free air. Patient was started on IV fluids and Zosyn. Gen surgery was consulted adn recommended treatment with natibiotcs for now and much later patient will undergo colectomy for recurrent diverticulitis. Patient was managed with Zosyn, today pain has resolved and he is tolerating low fiber diet very well. Discharge on 12 more days of Levaquin and Flagyl. F/u with PCP in 3-5 days F/u with Gen surgery as instructed. Time Spent with Patient Time attestation: Total time spent providing and/or coordinating discharge services: DS: Data Data Completed and Pending Labs on day of discharge: Labs from last 24 hours 02/05/25 05:30 WBC 11.4 H RBC 4.82 Hgb 15.5 Hct 45.8 MCV 95.0 MCH 32.2 MCHC 33.8 RDW 11.9 Plt Count 236 MPV 7.9 Immature Gran % (Auto) 0.4 Neut % (Auto) 67.7 Lymph % (Auto) 20.5 Antelope % (Auto) 6.0 Eos % (Auto) 4.7 H Baso % (Auto) 0.7 Lymph # (Auto) 2.33 Antelope # (Auto) 0.7 H Eos # (Auto) 0.5 H Baso # (Auto) 0.1 Abs Immat Gran (auto) 0.05 H Absolute Neuts (auto) 7.7 H Absolute Nucleated RBC 0.000 Nucleated RBC % 0.0 Sodium 138 Potassium 3.4 Chloride 98 Carbon Dioxide 31 H Anion Gap 9 BUN 7 L Creatinine 1.12 Estim Creat Clear Calc 66 Estimated GFR > 60 Glucose 103 Calcium 9.3 Magnesium 1.8 Total Bilirubin 0.5 AST 29 ALT 17 Alkaline Phosphatase 69 Total Protein 8.0 Albumin 4.3 Preliminary micro results at discharge 02/01/25 11:55 Blood Culture - Preliminary Blood 02/01/25 11:55 Blood Culture - Preliminary Blood Discharge Plan Discharge Attending physician on discharge: Morgan Arauz Consulting providers: Meredith Estrada Discharging Clinician: Morgan Arauz Anticipated Discharge Date/Time: 02/05/25 10:03 Patient Disposition: Home Activity: as tolerated Diet: as tolerated and low fiber Patient Instructions: Antibiotic Form Patient Language: Azeri Stand Alone Forms: General Discharge Information Follow-up/Referrals: Meredith Estrada MD [Physician] - (F/u with Gen surgery as instructed ) Teodoro,Tien Betancourt MD [Primary Care Provider] - (F/u with PCP in 3-5 days ) Discharge Medications: New levofloxacin 750 mg tablet 750 mg PO DAILY 12 Days Qty: 12 0RF metronidazole 500 mg tablet 500 mg PO Q8H 12 Days Qty: 36 0RF Continued losartan-hydrochlorothiazide 100-12.5 mg tablet 1 tablet PO DAILY Xarelto 20 mg tablet 20 mg PO DAILY tizanidine 4 mg tablet 4 mg PO Q8H PRN (Reason: muscle spasticity) tramadol 50 mg tablet 50 mg PO BID PRN (Reason: pain) Discontinued amoxicillin-pot clavulanate 875-125 mg tablet 1 tablet PO Q12H Date of admission: 02/03/25 15:43 Primary Care Provider: TeodoroTien Admitting Provider: Teresa Domingo Attending physician on admission: Teresa Domingo Condition: Stable
--- NOTE | 2025-02-05 12:17 | PM.PNGS ---
Progress Note: A&P Assessment and Plan (1) Sigmoid diverticulitis: Code(s): K57.32 - Diverticulitis of large intestine without perforation or abscess without bleeding Status: Acute Assessment and Plan: Discussed low-fiber diet. Okay to discharge from my perspective. He will stay on a low-fiber diet for 2 weeks. I will see him in the office at that time. He is interested in elective sigmoidectomy. (2) Chronic anticoagulation: Code(s): Z79.01 - assisted (current) use of anticoagulants Status: Chronic Assessment and Plan: Continue Xarelto (3) History of pulmonary embolism: Code(s): Z86.711 - Personal history of pulmonary embolism Status: Chronic Subjective Subjective Date/Time Seen: 02/05/25 12:17 Patient reports: no new complaints, feels better and tolerating a regular diet (Low-fiber) Review of Systems Review of Systems: All systems reviewed & are unremarkable except as noted in HPI and below (HPI) Exam Const: General: comfortable GI: Inspection: scaphoid GI Palp: Yes Soft to palpation and No Tenderness to palpation present (GI) Objective Data Vital Signs Vital Signs: Vital Signs - 24 hr 02/04/25 14:00 02/04/25 20:00 02/04/25 21:44 Temperature 36.5 C 36.2 C L Pulse Rate 103 H 94 Respiratory Rate 18 20 Blood Pressure 125/77 127/92 H Pulse Oximetry 99 97 Oxygen Delivery Room Air Fraction of Inspired Oxygen 02/04/25 23:24 02/05/25 06:00 02/05/25 08:00 Temperature 36.2 C L Pulse Rate 88 69 Respiratory Rate 16 16 Blood Pressure 125/84 Pulse Oximetry 97 98 100 Oxygen Delivery Room Air Room Air Fraction of Inspired Oxygen 21 02/05/25 08:52 Temperature 35.7 C L Pulse Rate 69 Respiratory Rate 16 Blood Pressure 129/91 H Pulse Oximetry 100 Oxygen Delivery Fraction of Inspired Oxygen Intake/Output Intake/Output: Intake & Output 02/02/25 02/03/25 02/04/25 02/05/25 23:59 23:59 23:59 23:59 Intake Total 630 1902 920 500 Balance 630 1902 920 500 Meds/Results Radiology Results: ITS Impressions Abdomen/Pelvis CT 02/01/25 10:58 Impression: Acute sigmoid diverticulitis. No abscess or free air. Labs Labs: Laboratory Results - last 24 hr 02/05/25 05:30 WBC 11.4 H RBC 4.82 Hgb 15.5 Hct 45.8 MCV 95.0 MCH 32.2 MCHC 33.8 RDW 11.9 Plt Count 236 MPV 7.9 Immature Gran % (Auto) 0.4 Neut % (Auto) 67.7 Lymph % (Auto) 20.5 Coffey % (Auto) 6.0 Eos % (Auto) 4.7 H Baso % (Auto) 0.7 Lymph # (Auto) 2.33 Coffey # (Auto) 0.7 H Eos # (Auto) 0.5 H Baso # (Auto) 0.1 Abs Immat Gran (auto) 0.05 H Absolute Neuts (auto) 7.7 H Absolute Nucleated RBC 0.000 Nucleated RBC % 0.0 Sodium 138 Potassium 3.4 Chloride 98 Carbon Dioxide 31 H Anion Gap 9 BUN 7 L Creatinine 1.12 Estim Creat Clear Calc 66 Estimated GFR > 60 Glucose 103 Calcium 9.3 Magnesium 1.8 Total Bilirubin 0.5 AST 29 ALT 17 Alkaline Phosphatase 69 Total Protein 8.0 Albumin 4.3
== END 2025-02-05 10:55 | disposition home or self-care (01) | DRG 244 ==
LOC: ANHED 11:26 → ANH3MEDSUR 12:04
PROVIDERS: Emergency Medicine; Nurse Practitioner Gerontology; Surgery; Admitting Provider Family Medicine; Emergency Provider Physician Assistant; PCP Internal Medicine Gastroenterology; Visit Provider Internal Medicine
DX: K57.32 Diverticulitis of large intestine without perforation or abscess without bleeding (principal); I10 Essential (primary) hypertension; Z86.711 Personal history of pulmonary embolism; Z86.718 Personal history of other venous thrombosis and embolism; Z79.01 Long term (current) use of anticoagulants
CPT/HCPCS: 36415; 74177; 80048; 80053; 81003; 83605; 83690; 83735; 85025; 85027; 86140; 87040; 96365; 96375; 96376; 99285; A9270; G0378; G0379; J2270; J2405; J2543; Q9967

== ENCOUNTER 2025-03-17 08:37 | Outpatient (CLI) | payer OTHER, SELFPAY ==
--- NOTE | ~2025-03-17 | XR_ITS ---
EXAM/PROCEDURE: XR chest 2V - 03/17/2025 10:30 CDT HISTORY: 59 years old Male with K57.92 - Diverticulitis of intestine, part unspecified, w... TECHNIQUE: Two view(s) of the chest. COMPARISON: None available. FINDINGS: LUNGS/ PLEURA: Airspace opacity in right lung base may represent pneumonia in appropriate clinical se ttings. No pneumothorax or pleural effusion. HEART/ MEDIASTINUM: Heart appears normal in size. BONES: No acute osseous abnormality. OTHER: Visualized upper abdomen is unremarkable. IMPRESSION: Airspace opacity in right lung base may represent pneumonia in appropriate clinical settings. Clinica l correlation is recommended. Short-term follow-up chest radiograph is recommended after appropriate clinical therapy. Reviewed, dictated and finalized at location [facility]. IMPRESSION: Airspace opacity in right lung base may represent pneumonia in appropriate clin ical settings. Clinical correlation is recommended. Short-term follow-up chest radiograph is recommended after appropriate clinical therapy.
--- NOTE | 2025-03-17 10:13 | ECG_ITS ---
Test Date: 2025-03-17 10:27:40 Measurements Intervals [place] Rate: 76 P: 39 SD: 138 QRS: 20 QRSD: 111 T: 29 QT: 378 QTc: 427 Interpretive Statements SINUS RHYTHM INCOMPLETE LEFT BUNDLE BRANCH BLOCK BASELINE ARTIFACT- I, II, III, AVR, AVL, AVF, V1-V6 ABNORMAL ECG No previous ECG available for comparison Electronically Signed On 03-17-2025 10:47:20 CDT by Ole Huber D.O.
[2025-03-17 10:34] LABS: Basophils Absolute Auto 0.1 K/mm3 (0.0-0.1); Basophils Percent Auto 0.7 % (0.2-1.2); Eosinophils Absolute Auto 0.4 K/mm3 (0-0.3); Eosinophils Percent Auto 3.5 % (0-4.4); Hematocrit 49.6 % (42.0-52.0); Hemoglobin 16.2 g/dL (14.0-18.0); Immature Granulocyte Absolute 0.05 K/mm3 (0.00-0.031); Immature Granulocyte Percent A 0.5 % (0-0.5); Lymphocytes Absolute Auto 2.23 K/mm3 (0.9-3.2); Lymphocytes Percent Auto 20.9 % (18.3-44.2); Mean Corpuscular HGB Conc 32.7 g/dl (32-36); Mean Corpuscular Hemoglobin 31.2 pg (26-34); Mean Corpuscular Volume 95.4 fl (80-100); Mean Platelet Volume 7.6 fl (7.4-10.4); Monocytes Absolute Auto 0.7 K/mm3 (0.1-0.6); Monocytes Percent Auto 6.7 % (2.6-8.5); Neutrophils Absolute Auto 7.3 K/mm3 (1.3-6.7); Neutrophils Percent Auto 67.7 % (45.5-73.1); Platelet Count Result 238 k/mm3 (150-375); Red Cell Distribution Width 13.4 % (11.5-14.5); White Blood Count 10.7 K/mm3 (4.5-10.0)
[2025-03-17 11:31] LABS: Anion Gap 11 mmol/L (4-12); Blood Urea Nitrogen 7 mg/dL (9-20); Carbon Dioxide 27 mmol/L (22-30); Chloride 103 mmol/L (98-107); Estimated Glomerular Filt Rate > 60; Glucose 103 mg/dL (65-110); Potassium 4.3 mmol/L (3.4-5.0); Sodium 141 mmol/L (137-145)
== END 2025-03-17 08:38 | disposition home or self-care (01) ==
LOC: ANHSURGERY 08:41
PROVIDERS: PCP Internal Medicine Gastroenterology; Visit Provider Surgery
DX: Z01.818 Encounter for other preprocedural examination (principal); K57.92 Diverticulitis of intestine, part unspecified, without perforation or abscess without bleeding; R91.8 Other nonspecific abnormal finding of lung field; I44.7 Left bundle-branch block, unspecified; R94.31 Abnormal electrocardiogram [ECG] [EKG]
CPT/HCPCS: 36415; 71046; 80048; 85025; 86850; 86900; 86901; 93005

== ENCOUNTER 2025-03-21 07:50 | Outpatient (CLI) | payer OTHER, SELFPAY ==
--- NOTE | ~2025-03-21 | CT_ITS ---
CT Scan of the Chest without Contrast: Clinical Indication: Abnormal chest x-ray Technique: Contiguous sections were acquired throughout the chest without intravenous contrast. Dose reduction technique was used on this scan by utilizing automated exposure control and iterative recon struction technique. The dose-length product (DLP) was 184.15 mGy-cm. Findings: There is no evidence of any significant mediastinal, hilar or axillary lymphadenopathy. Coronary fran ry calcifications are present. There is no evidence of pleural or pericardial effusion. There is complete right middle lobe atelectasis with bronchiectatic change in the right middle lobe, which accounts for the prior radiographic finding. Remainder of the lungs are clear. Images through the upper abdomen reveal no abnormalities. Impression: Complete right middle lobe atelectasis with right middle lobe bronchiectatic change. Reviewed, dictated and finalized at [facility]. Impression: Complete right middle lobe atelectasis with right middle lobe bronchiectatic ch amanda.
== END 2025-03-21 07:51 | disposition home or self-care (01) ==
PROVIDERS: PCP Internal Medicine Gastroenterology; Visit Provider Surgery
DX: K57.92 Diverticulitis of intestine, part unspecified, without perforation or abscess without bleeding (principal); Z86.711 Personal history of pulmonary embolism; J98.11 Atelectasis; R91.8 Other nonspecific abnormal finding of lung field
CPT/HCPCS: 71250

== ENCOUNTER 2025-04-15 13:03 | Outpatient (CLI) | payer OTHER, SELFPAY ==
--- NOTE | ~2025-04-15 | XR_ITS ---
EXAM/PROCEDURE: XR chest 2V - 04/15/2025 13:19 CDT HISTORY: 59 years old Male with J47.9 - Bronchiectasis, uncomplicated TECHNIQUE: Two view(s) of the chest. COMPARISON: 03/17/2025 FINDINGS: LUNGS/ PLEURA: Airspace opacity in the right lung base, unchanged. No pleural effusions or pneumothor ax. HEART/ MEDIASTINUM: Heart appears normal in size. BONES: Degenerative changes. OTHER: Visualized upper abdomen is unremarkable. IMPRESSION: Airspace opacity in the right base, unchanged. This may represent atelectasis, scarring versus pneumo devonte in appropriate clinical settings. Short-term follow-up chest radiograph is recommended after appr opriate clinical therapy. Reviewed, dictated and finalized at location A. IMPRESSION: Airspace opacity in the right base, unchanged. This may represent atelectasis, scarring versus pneumonia in appropriate clinical settings. Short-term follow-u p chest radiograph is recommended after appropriate clinical therapy.
--- OUTSIDE RECORDS SUMMARY | 2025-04-15 13:06 | XMS_ITS | Continuity of Care Document ---
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 [address] [place] [address], [facility], [place]. tel:[phone] Referring Provider: Wiley jolley, [address], [facility]. tel:[phone] Family History Family Member Type Diagnosis Age At Onset No Information Payers Payer name Insurance type Covered alliance party ID Authoriza tion(s) Medicaid [facility] [id number] Social History Type Description Quantity Date Captured [...]
--- OUTSIDE RECORDS SUMMARY | 2025-04-15 13:06 | XMS_ITS | Data Portability ---
Author Organization [facility] LINAShayla Address [address] [place] [address] Assessment No assessment recorded. Plan of Treatment Reminders Order Date Submit Date Provider Last Modified By Organization Details Last Modified Time Details Appointments None recorded . Lab None recorded . Referral general surgeon referral 2024 025 [facility], [address] [place], [address], 5 04:23:51 Procedures None recorded . Surgeries None recorded . Imaging None recorded . Medication Orders amoxicil aide 875 mg-potas sium clavulan ate 125 mg tablet 2024 025 [facility], [address] [place] [address], [id number], 5 15:43:52 amoxicil aide 875 mg-potas sium clavulan ate 125 mg tablet 2024 025 [facility], [address] [place] [address], [id number], 5 11:22:06 ergocalc iferol (vitamin D2) 1,250 mcg (50,000 unit) capsule 2023 024 [facility], [address] [place] [address], [id number], 5 11:18:17 tizanidi ne 4 mg tablet 2023 024 [facility], [address] [place] [address], [id number], 5 17:07:13 losartan 100 mg-hydro chloroth iazide 12.5 mg tablet 2023 024 [facility], [address] [place] [address], [id number], 5 14:05:49 losartan 100 mg-hydro chloroth iazide 12.5 mg tablet 2023 024 [facility], [address] [place] [address], [id number], 4 13:18:53 losartan 50 mg tablet 2023 024 [facility], [address] [place] [address], [id number], 17:21:26 losartan 50 mg tablet 2023 024 [facility], [address] [place] [address], [id number], 17:07:06 Patient TargetsNo targets recorded. Patient Instructions Encounter Date Encounter Id Patient Instructions Last Modified By Organization Details Last Modified Time 02/04/2024 [id number] learning about high blood sugar [email or web address] Not available 02/04/2024 16:14:47 learning about high blood pressure [email or web address] Not available 02/04/2024 16:14:46 03/30/2024 [id number] learning about high blood sugar [email or web address] Not available 03/30/2024 17:21:27 learning about high blood pressure [email or web address] Not available 03/30/2024 17:21:27 06/30/2024 [id number] learning about high blood sugar [email or web address] Not available 06/30/2024 17:43:56 A healthy lifestyle: care instructions [email or web address] Not available 07/01/2024 14:20:15 back care and preventing injuries: care instructions [email or web address] Not available 06/30/2024 17:43:55 learning about high blood pressure [email or web address] Not available 06/30/2024 17:43:55 01/10/2025 [id number] learning about high blood sugar Not available 01/10/2025 17:39:09 folate deficienc y anemia: care instructions [email or web address] Not available 01/10/2025 17:39:09 learning about high blood pressure [email or web address] Not available 01/10/2025 17:39:09 diverticulitis: care instructions Not available 01/10/2025 17:37:03 learning about diverticulosis and diverticulitis [email or web address] Not available 01/10/2025 17:37:03 Reason for Referral [...] 1999 panel - Serum or Plasm a BUN/creatini ne ratio 11 low: 9high: 20 BUN/C reati nine Ratio 11 9 - 20 [facility] INS[facility] ANCE BILL Not Available Not Available 11/29/2024 04:29:16 06/15/20 24 06/16/2024 Compr ehens idalia metab olic 1999 panel - Serum or Plasm a sodium 137 mmol/ L low: 134mmo l/Lhig h: 144mmo l/L Sodiu m 137 134 - 144 mmol/ L [facility] INSUR ANCE BILL Not Available Not Available 11/29/2024 04:29:16 06/15/2006/16/2024 Compr ehens idalia metab olic 2000 panel - Serum or Plasm a potassium 4 mmol/ L low: 3.5mmo l/Lhig h: 5.2mmo l/L Potas sium 4.0 3.5 - 5.2 mmol/ L [facility] INSUR ANCE BILL Not Available Not Available 11/29/2024 04:29:16 06/15/2006/16/2024 Compr ehens idalia metab olic 2000 panel [...] 2000 panel - Serum or Plasm a albumin 4.3 g/dL low: 3.8g/d Lhigh: 4.9g/d L Album in 4.3 3.8 - 4.9 g/dL [facility] INSUR ANCE BILL Not Available Not Available 11/29/2024 04:29:16 06/15/20 24 06/16/2024 Compr ehens idalia metab olic 2000 panel - Serum or Plasm a globulin total 3.2 g/dL low: 1.5g/d Lhigh: 4.5g/d L Globu aide Total 3.2 1.5 - 4.5 g/dL [facility] INSUR ANCE BILL Not Available Not Available 11/29/2024 04:29:16 06/15/20 24 06/16/2024 Compr ehens idalia metab olic 2000 panel - Serum or Plasm a bilirubin total 0.6 mg/dL low: 0mg/dL high: 1.2mg/ dL Bilir ubin Total 0.6 0.0 - 1.2 mg/dL [facility] INSUR ANCE BILL Not Available Not Available 11/29/2024 04:29:16 06/15/20 24 06/16/2024 Compr ehens idalia metab olic 2000 panel - Serum or Plasm a alkaline [...] - Serum or Plasm a Unknown Analyte [facility] at: 01 - [facility] [place] [id number] Lab Direct or: Anson sheets PhD, Not Available Not Available 04:29:16 06/15/20 24 06/15/2024 CBC W Auto Diffe renti al panel - Blood leukocytes [#/volume] in blood by automated count 8.9 text: 4.4 - 10.7 x10e9/ L WBC 8.9 4.4 - 10.7 x10E9 /L 06/15 1:17 PM CDT SS [...] - 43.0 % 06/15 1:17 PM CDT [facility] Not Available Not Available 01/10/2025 09:59:53 06/15/20 24 06/15/2024 CBC W Auto Diffe renti al panel - Blood monocytes/le ukocytes in blood by automated count 6.8 % low: 5%high : 13% Monoc ytes % 6.8 5.0 - 13.0 % 06/15 1:17 PM CDT [facility] Not Available Not Available 01/10/2025 09:59:53 06/15/2006/15/2024 CBC W Auto Diffe renti al panel - Blood eosinophils/ leukocytes in blood by automated count 3.4 % low: 0%high : 6% Eosin ophil s % 3.4 0.0 - 6.0 % 06/15 1:17 PM CDT [facility] Not Available Not Available 01/10/2025 09:59:53 06/15/20 24 06/15/2024 CBC W Auto Diffe renti al panel - Blood basophils/le ukocytes in blood by automated count 0.6 % low: 0%high : 2% Basop hils % 0.6 0.0 - 2.0 % 06/15 1:17 PM CDT [facility] Not Available Not Available 01/10/2025 09:59:53 06/15/2006/15/2024 CBC W Auto Diffe renti al panel - Blood immature granulocytes /leukocytes in blood by automated count 0.7 % high: 1% Immat ure Granu locyt es 0.7 <=1 % 06/15 1:17 PM CDT [facility] Not Available Not Available 01/10/2025 09:59:53 06/15/2006/15/2024 CBC W Auto Diffe renti al panel - Blood neutrophils [#/volume] in blood by automated count 5.91 text: 2.01 - 7.14 x10e9/ L Neutr ophil Absol venetie 5.91 2.01 - 7.14 x10E9 /L 06/15 1:17 PM CDT [facility] Not Available Not Available 01/10/2025 09:59:53 06/15/20 24 06/15/2024 CBC W Auto Diffe renti al panel - Blood lymphocytes [#/volume] in blood by automated count 1.96 text: 1.07 - 3.94 x10e9/ L Lymph ocyte s Absol venetie 1.96 1.07 - 3.94 x10E9 /L 06/15 1:[address] [facility] Not Available Not Available 01/10/2025 09:59:53 06/15/20 24 06/15/2024 CBC W Auto Diffe renti al panel - Blood monocytes [#/volume] in blood by automated count 0.6 text: 0.26 - 1.07 x10e9/ L Monoc ytes Absol venetie 0.60 0.26 - 1.07 x10E9 /L 06/15 1:[address] [facility] Not Available Not Available 01/10/2025 09:59:53 06/15/20 24 06/15/2024 CBC W Auto Diffe renti al panel - Blood eosinophils [#/volume] in blood by automated count 0.3 text: 0 - 0.47 x10e9/ L Eosin ophil s Absol venetie 0.30 0 - 0.47 x10E9 /L 06/15 1:[address] [facility] Not Available Not Available 01/10/2025 09:59:53 06/15/20 24 06/15/2024 CBC W Auto Diffe renti al panel - Blood basophils [#/volume] in blood by automated count 0.05 text: 0 - 0.08 x10e9/ L Basop hils Absol venetie 0.05 0 - 0.08 x10E9 /L 06/15 1:[address] [facility] Not Available Not Available 01/10/2025 09:59:53 06/15/20 24 06/15/2024 CBC W Auto Diffe renti al panel - Blood erythrocytes [#/volume] in blood by automated count 5.16 text: 3.80 - 5.40 x10e12 /L RBC 5.16 3.80 - 5.40 x10E1 2/L 06/15 1:17 PM CDT [facility] Not Available Not Available 01/10/2025 09:59:53 06/15/2006/15/2024 CBC W Auto Diffe renti al panel - Blood hemoglobin [mass/volume ] in blood 16.2 text: 12.0 - 17.6 gm/dL Hemog lobin 16.2 12.0 - 17.6 gm/dL 06/15 1:17 PM CDT [facility] Not Available Not Available 01/10/2025 09:59:53 06/15/20 24 06/15/2024 CBC W Auto Diffe renti al panel - Blood hematocrit [volume fraction] of blood by automated count 46.6 % low: 35.2%h igh: 51.7% Hemat ocrit 46.6 35.2 - 51.7 % 06/15 1:17 PM CDT [facility] Not Available Not Available 01/10/2025 09:59:53 06/15/20 24 06/15/2024 CBC W Auto Diffe renti al panel - Blood MCV [entitic mean volume] in red blood cells by automated count 90.3 fL low: 80.7fL high: 98.3fL MCV 90.3 80.7 - 98.3 fl 06/15 1:17 PM CDT [facility] Not Available Not Available 01/10/2025 09:59:53 06/15/2006/15/2024 CBC W Auto Diffe renti al panel - Blood MCH [entitic mass] by automated count 31.4 pg low: 26.7pg high: 34pg MCH 31.4 26.7 - 34.0 pg 06/15 1:17 PM CDT [facility] Not Available Not Available 01/10/2025 09:59:53 06/15/2006/15/2024 CBC W Auto Diffe renti al panel - Blood MCHC [entitic mass/volume] in red blood cells by automated count 34.8 text: 30.8 - 35.9 gm/dL MCHC 34.8 30.8 - 35.9 gm/dL 06/15 1:17 PM CDT [facility] Not Available Not Available 01/10/2025 09:59:53 06/15/20 24 06/15/2024 CBC W Auto Diffe renti al panel - Blood erythrocyte [distwidth] in red blood cells by automated count 12.4 % low: 12.1%h igh: 14.9% RDW-C V 12.4 12.1 - 14.9 % 06/15 1:17 PM CDT [facility] Not Available Not Available 01/10/2025 09:59:53 06/15/20 24 06/15/2024 CBC W Auto Diffe renti al panel - Blood platelets [#/volume] in blood by automated count 189 text: 153 - 416 x10e9/ L Plate let Count 189 153 - 416 x10E9 /L 06/15 1:17 PM CDT [facility] Not Available Not Available 01/10/2025 09:59:53 06/15/20 24 06/15/2024 CBC W Auto Diffe renti al panel - Blood platelet [entitic mean volume] in blood by automated count 7.8 fL low: 9.4fLh igh: 12.9fL low MPV 7.8 (L) 9.4 - 12.9 fl 06/15 1:17 PM CDT [facility] Not Available Not Available 01/10/2025 09:59:53 06/15/20 24 06/15/2024 CBC W Auto Diffe renti al panel - Blood nucleated erythrocytes /leukocytes [ratio] in blood by automated count 0 text: <=0 /100 WBC NRBC 0.0 <=0 /100 WBC 06/15 1:17 PM CDT [facility] Not Available Not Available [...] anshul consu ltati on, pleas e call [phone]. ===== ===== ===== ===== ===== ===== ===== ===== ===== ===== ===== ===== ===== === Not Available [facility] ([facility]) [address], [place], [address], 10/26/2024 19:08:34 10/20/19 25 10/26/2024 COMPL IANCE DRUG HAFSA SIS, UR pdf . Not Available [facility] ([facility]) [address] [facility], [place], [address], 10/26/2024 19:08:34 03/17/20 25 03/17/2025 XR, chest No observ ation record ed. [address], [place], [address], 03/17/2025 16:48:00 03/21/20 25 03/21/2025 CT, chest , w/o contr ast No observ ation record ed. [address] [place], [address], 03/21/2025 14:32:58 Result Notes None recorded. Problems Name Problem SNOMED Code Status Onset Date Resolution Date Notes Provider Name and Address Organization Details Recorded Time Low back pain 002354280 Active 2021 Not Available [employer] 3 07:50:17 Essential hypertension 81896058 Active 2023 Tien Valerio MD Attn: Accounting ,[address] [facility], [place], [address] , [facility] 4 17:27:43 History of deep vein thrombosis 880418648 Active 2023 Tien Valerio MD Attn: Accounting ,[address] [facility], [place], [address] , [facility] 4 17:28:30 History of pulmonary embolus 286299212 Active 2023 Tien Valerio MD Attn: Accounting ,[address] [facility], [place], [address] , [place] [facility] 4 17:28:54 Screening for malignant neoplasm of prostate Active 2023 Tien Valerio MD Attn: Accounting ,[address] [facility], [place], [place], [address] [place] [address] , [place] [facility] 4 17:33:38 Long-term current use of anticoagulant 291084116 Active 2023 Tien Valerio MD Attn: Accounting ,[address] [facility], [place], [place], [address] [place] [address] , [place] [facility] 4 17:35:06 Diverticular disease 391060209 Active 2023 Tien Valerio MD Attn: Accounting ,[address] [facility], [place], [address] [place] [address] , [place] [facility] 4 17:36:23 Vitamin D deficiency 46503940 Active 2023 Tien Valerio MD Attn: Accounting ,[address] [facility], [place], [address] [place] [address] , [place] [facility] 4 12:49:09 Macrocytosis 020839066 Active 2023 Tien Valerio MD Attn: Accounting ,[address] [facility], [place], [address] [place] [address] , [place] [facility] 4 12:49:34 Hyperglycemia 31874540 Active 2023 Tien Valerio MD Attn: Accounting ,[address] [facility], [place], [address] [place] [address] , [place] [facility] 4 12:50:28 Folic acid deficiency 907846233 Active 2023 Tien Valerio MD Attn: Accounting ,[address] [facility], [place], [address] , [place] [facility] 4 07:30:18 Medication monitoring Active 2024 Tien Valerio MD Attn: Accounting ,[address] [facility], [place], [address] , [facility] 5 01:58:05 Diverticuliti s 490377823 Active 2024 Tien Valerio MD Attn: Accounting ,[address], [place], [address] , [facility] 5 17:35:53 Problem Notes None recorded. Procedures Surgical History Date Name Laterality Status Provider Name and Address Organization Details Recorded Time Appendectomy completed Nitin Porter MA [facility] 05/15/2021 14:08:07 Tonsillectomy completed Nitin Porter MA [facility] 05/15/2021 14:08:22 Imaging Results None recorded. Procedure [...] Available Not Available No t Available polyethyl theirno glycol 3350 17 gram/dose oral powder Take [...] in Arterial blood by Pulse oximetry Systolic And Diastolic Provider Name and Address Organization Details Last Updated DateTime 5 180.34 cm 26.5 kg/m2 71902.5 5 g 96 /min 96 % 96 % 135/94 mm[Hg] Massiel Lopez MA [facility] 5 17:10:07 Date Recorded Body height Body mass index (BMI) Body weight Body temperature Heart rate Oxygen saturation Oxygen saturation in Arterial blood by Pulse oximetry Respiratory rate Pain severity - 0-10 verbal numeric rating [Score] - Reported Systolic And Diastolic Provider Name and Address Organization Details Last Updated DateTime 5 180.34 cm 26.2 kg/m2 01493.3 7 g 97 [degF] 84 /min 96 % 96 % 18 /min 3 104/74 mm[Hg] Sandhya Ramesh LPN [facility] 5 14:43:31 Date Recorded Body height Body mass index (BMI) Body weight Oxygen saturation Oxygen saturation in Arterial blood by Pulse oximetry Heart rate Systolic And Diastolic Provider Name and Address Organization Details Last Updated DateTime 4 180.34 cm 26.2 kg/m2 15331.3 7 g 97 % 97 % 77 /min 164/96 mm[Hg] Linda Ford MA [facility] 4 16:00:27 Date Recorded Body height Body mass index (BMI) Body weight Oxygen saturation Oxygen saturation in Arterial blood by Pulse oximetry Heart rate Systolic And Diastolic Provider Name and Address Organization Details Last Updated DateTime 4 180.34 cm 26.9 kg/m2 80081.3 3 g 98 % 98 % 96 /min 168/98 mm[Hg] Linda Ford MA [facility] 4 16:39:48 Date Recorded Body height Body mass index (BMI) Body weight Oxygen saturation Oxygen saturation in Arterial blood by Pulse oximetry Heart rate Systolic And Diastolic Provider Name and Address Organization Details Last Updated DateTime 4 180.34 cm 25.7 kg/m2 96229.2 8 g 95 % 95 % 88 /min 130/81 mm[Hg] Jono Rosas MA [facility] 4 17:10:48 Social History Question Answer Notes LastModified by Organizat ion Details LastModified Time Tobacco Smoking Status Never Smoker Nitin Porter MA null, [facility] 05/15/2021 14:11:19 Do You Have An Advance Directive? No Information n ot available 02/13/2023 In The 14 Days Before Symptom Onset, Have You Had Close Contact With A Laboratory-confirm ed COVID-19 While That Case Was Ill? No Information n ot available 01/25/2025 In The 14 Days Before Symptom Onset, Have You Had Close Contact With A Person Who Is Under Investigation For COVID-19 While That Person Was Ill? No Information not available 01/25/2025 Have You Been To An Area Known To Be High Risk For COVID-19? No Information not available 01/25/2025 Do You Have A Medical Power Of Principal Web Developer? Yes Information not available 02/13/2023 What Was The Date Of Your Most Recent Tobacco Screening? 01/25/2025 Information not available 01/25/2025 Has Tobacco Cessation Counseling Been Provided? No [email or web address] Information not available 12/24/2023 Sex: Unknown Functional Status Question Answer Note LastModified by Organization D etails LastModified Time Do you or have you ever used any other forms of tobacco or nicotine? No [email or web address] Information not available 12/10/2022 What is your level of alcohol consumption? Moderate [email or web address] Information not available 05/15/2021 Mental Status None recorded. Family History Relationship Description Onset Age of this Age Resolved Age Notes LastModified by Organization Details LastModified Time Brother Cerebrovascu lar accident [email or web address] Not available 0 05/15/2021 14:08:46 Brother Malignant tumor of colon [email or web address] Not available 04/23 14:09:07 Brother Malignant neoplasm of prostate [email or web address] Not available 04/23 14:09:50 Father Heart disease [email or web address] Not available 04/23 14:09:19 Father Hypertensive disorder [email or web address] Not available 04/23 14:09:30 Mother Suspected lung cancer [email or web address] Not available 14:10:17 Medical History No medical history recorded. Immunizations Vaccine Type Date Status Note Provider Nam e and Address Organization Details Recorded Time COVID-19, mRNA, LNP-S, PF, 100 mcg/0.5mL dose or 50 mcg/0.25mL dose 03/27/2021 completed Candy Metcalf [place], [place] [facility] 05/06/2023 12:41:22 COVID-19, mRNA, LNP-S, PF, 100 mcg/0.5mL dose or 50 mcg/0.25mL dose 04/24/2021 completed Candy Metcalf MA matty, [place] - [facility] 05/06/2023 12:41:22 Influenza, split virus, quadrivalent, PF 07/02/2017 completed Candy Metcalf MA matty, [place] - [facility] 05/06/2023 12:41:22 Past Encounters Encounter ID Performer Location Encounter Start Date Encounter Closed Date Diagnosis/Indication Diagnosis SNOMED-CT Code Diagnosis ICD10 Code Diagnosis Note [id number] MD Marietta Chávez (Adult Med) [address] [place] [phone] 05/15/2021 13:44:32 05/17/2021 11:07:24 Gouty arthritis of toe 322218790 M10.079 Discussed with patient, avoid red meat, sea food, on low purine diet., avoid alcohol or consume less amount. Adult [facility] th examination 490648736 Z00.00 Avoid cigarettes smoking, Benign pro static hyperplasia 247381734 N40.0 PSA screening. Screening for malignant neoplasm of colon 322483009 Z12.11 Discussed with patient, he agreed for the screening. [id number] Kolton Nevarez MD [facility] [address] [address] 05/24/2021 10:01:10 05/25/2021 12:50:30 Screening for malignant neoplasm of colon 158597157 Z12.11 [id number] MD Marietta Chávez (Adult Med) [address] [place] [phone] 06/05/2021 12:07:32 06/06/2021 08:53:38 Bilateral heel pain 7418463381 6446499 M79.671 M79.672 Wants some pills for the relief of pain for the mean time. [id number] MD Marietta Chávez (Adult Med) [address] [place] [phone] 10/10/2021 15:58:54 10/12/2021 10:16:16 Persistent cough 374514460 R05.3 Will try liquid cough syrup, he agreed. Headache 40963340 R51.9 Will try baclofen for the mean time. [id number] MD Marietta Chávez (Adult Med) [address] [place] [phone] 04/05/2022 11:25:12 04/09/2022 07:39:38 Acute low back pain 129888030 M54.50 Discussed with patient, will order following the tests and med. Light duty for 2 months. [id number] MD Marietta Chávez (Adult Med) [address] [place] [phone] 05/29/2022 14:53:52 05/30/2022 09:36:37 Pain of right shoulder joint 0137319141 0676021 M25.511 Tizanidine made him oozy, he declines PT , but would like to resume tylenol #3 as needed basis. [id number] MD Marietta Chávez (Adult Med) [address] [place] [phone] 07/03/2022 09:45:30 07/04/2022 11:18:32 Pain of right shoulder joint 1407790189 3244709 M25.511 Tizanidine made him oozy, he declines PT , it painful to exercise, but would like to resume tylenol #3 as needed basis. will refer to orthopedic . Chronic low back pain 27 3068212 M54.50 Tried PT but did not help to relieve the pain, since March 2022. Ran out the tylenol #3 for pain. Hard to bend to the right side, pain radiating to the cheek and right leg, indicates right sciatica. [id number] MD Marietta Chávez (Adult Med) [address] [place] [phone] 12/10/2022 17:05:55 12/13/2022 17:34:47 Overweight 853789229 E66.3 PMI is 26.9. diet, exercise and keep the weight down. Chronic low back pain 27 6172983 M54.50 Tried PT but did not help to relieve the pain, since March 2022. Ran out the tylenol #3 for pain. Hard to bend to the right side, pain radiating to the cheek and right leg, indicates right sciatica. Essential hypertension 01599097 I10 BP 120/70, well controlled , will refill med. Erectile dysfunction 860 925365 F52.21 Discussed with patient , that gabapentin and tizanidine mess his life he said. Diverticul itis of colon 205552610 K57.32 Avoid rough or nut meal. may try ABS as prescribed . or ER. He agreed. [id number] Meche Kinney MD [facility] (Adult Med) [address] [place] [address] 02/11/2023 12:29:49 02/12/2023 14:26:11 Overweight 903649594 E66.3 PMI is 26.9. diet, exercise and keep the weight down. Diverticul itis of colon 629581173 K57.32 Avoid rough or nut meal. may try ABS as prescribed . or ER. He agreed. Still taking ABS. Chronic low back pain 27 4231740 M54.50 Tried PT but did not help to relieve the pain, since March 2022. Ran out the tylenol #3 for pain. Hard to bend to the right side, pain radiating to the cheek and right leg, indicates right sciatica. Elevated blood-pressure reading without diagnosis of hypertension 777057057 R03.0 Since he took med for hypertens ion he felt almost passing out. . Will just monitoring blood pressure for the mean time. HIV screen ing declined 6662381989 71662 Z53.20 He declined 02-11-23. [id number] Kolton Nevarez MD [facility] [address] [place] [address] 02/13/2023 11:13:15 02/13/2023 13:34:45 Abscess of sigmoid colon co-occurrent and due to diverticulitis 0118212793 790158 K57.20 patient with history of diverticul itis, currently dx'd with intramural abscess. Likely will need sigmoid colectomy. Also with history of tubulovill ous adenoma. Before any surgical interventi on, will need colonoscop y to evaluate area of sigmoid inflammati on as well as to rule out any additional adenoma. Will schedule for colonoscop y as soon as is convenient . Asked patient to retrieve CT scan disks for review. [id number] Kolton Nevarez MD [facility] [address] [place] [address] 03/13/2023 10:51:07 03/17/2023 10:48:36 Complicated diverticular disease of large intestine 635051136 K57.90 Patient with multiple episodes of complicate d diverticul itis, last in 01/12. He is indicated for a laparoscop ic sigmoid colectomy in order to relieve his pain and prevent future attacks. Alternativ e is watchful waiting, which the patient indicates that he does not want to employ. Risks include bleeding, leaking, wound infection, and the remote possibilit y of needing an ostomy, at least temporaril y. He has indicated understand ing and is in agreement with the plan of care. he has been prescribed antibiotic s and laxatives for his prep and given instructio ns. Will proceed to the OR as soon as is convenient . [id number] Meche Kinney MD [facility] (Adult Med) [address] [place] [address] 05/06/2023 12:38:03 05/07/2023 16:10:52 Chronic low back pain 483543264 M54.50 Tried PT but did not help to relieve the pain, since March 2022. Ran out the tylenol #3 for pain. Hard to bend to the right side, pain radiating to the cheek and right leg, indicates right sciatica. He was told not candidate for operation for back operation, so he will take pain med for a lung time, signed pain med contract and will have urine drug screening. Essential hypertension 81593409 I10 BP 120/70, well controlled , will refill med. Blood pressure monitor provided to him today. Pain in ri ght lower limb 717224146 M79.604 Discussed with patient. will do venous doppler to R/O acute DVT, empirical ABO and diuretic, if positive DVY will treat with anticoagul ant. for 3 months. HIV screen ing declined [id number] 88533 Z53.20 He declined 02-11-23. Also today . [id number] [facility] [address] [place] [address] [phone] 05/13/2023 14:22:18 05/16/2023 10:33:25 Pulmonary embolism 98741514 I26.99 oN XARELTO, [place] A HEMATOLOGI ST. Acute deep venous thrombosis of right lower extremity [id number] 61700 I82.401 On xarelto, will see a hematologi st. [id number] Mehce Kinney MD [facility] (Adult Med) [address] [place] [address] [phone] 08/07/2023 15:09:43 08/12/2023 14:18:46 Chronic low back pain 039043108 M54.50 Tried PT but did not help to relieve the pain, since March 2022. Ran out the tylenol #3 for pain. Hard to bend to the right side, pain radiating to the cheek and right leg, indicates right sciatica. He was told not candidate for operation for back operation, so he will take pain med for a long time, signed pain med contract and will have urine drug screening. He takes pain med as needed. Will sign the drg contract and give drg test. But will change to tramadol instead. He agreed. [id number] MD [facility] [address] [place] [address] [phone] 11/06/2023 15:30:44 11/10/2023 16:52:16 Chronic low back pain 858098277 M54.50 Tried PT but did not help to relieve the pain, since March 2022. Ran out the tylenol #3 for pain. Hard to bend to the right side, pain radiating to the cheek and right leg, indicates right sciatica. He was told not candidate for operation for back operation, so he will take pain med for a long time, signed pain med contract and will have urine drug screening. He takes pain med as needed. Will sign the drg contract and give drg test. But will change to tramadol instead. He agreed. Refill tramadol Deep venou s thrombosis of lower extremity [id number] I82.409 On xarelto 10 mg /day. [id number] [facility] [address] [place] [address] [phone] 12/24/2023 15:40:48 12/26/2023 09:53:24 History of deep vein thrombosis 126501711 Z86.718 Cont xarelto Essential hypertension 56151206 I10 Cont current rx Chronic low back pain 27 8884373 M54.50 Screening for malignant neoplasm of prostate 515544024 Z12.5 Long-term current use of anticoagulant 388520294 Z79.01 Diverticular disease 397 298818 K57.90 [id number] Tien Valerio MD [facility] (Adult Med) [address] [place] [address] [phone] 0 02/04/2024 15:49:48 02/05/2024 08:27:02 Essential hypertension 80150391 I10 Increase to 100 mg/d Diverticular disease 397 611323 K57.90 History of pulmonary embolus 881181103 Z86.711 Hyperglycemia 74258196 R 73.9 Macrocytosis 009478042 D 75.89 Continue folic acid supplement [id number] Tien Valerio [facility] [address] [place] [address] 77446-041 0 03/30/2024 16:21:50 04/01/2024 14:39:47 Essential hypertension 82067547 I10 Add diuretic to losartan Diverticular disease 397 383611 K57.90 History of pulmonary embolus 906813507 Z86.711 Hyperglycemia 17482671 R 73.9 Macrocytosis 709291536 D 75.89 Continue folic acid supplement [id number] [facility] [address] [place] [address] [phone] 06/30/2024 16:35:54 07/05/2024 15:00:41 Overweight 829487166 E66.3 History of deep vein thrombosis 632919886 Z86.718 Cont xarelto History of pulmonary embolus 240928677 Z86.711 Long-term current use of anticoagulant 065616655 Z79.01 Hyperglycemia 03190503 R 73.9 Watch carbohydra te intake Low back pain 399052106 M54.50 Vitamin D deficiency 347 67775 E55.9 Diverticular disease 397 797881 K57.90 Essential hypertension 88919934 I10 Add diuretic to losartan [id number] MD Marietta Kemp (Adult Med) [address] [place] [address] 01/10/2025 16:57:43 01/17/2025 12:56:08 Diverticulitis 585899740 K57.92 Essential hypertension 09048706 I10 Cont current meds. Labs on return OV Folic acid deficiency 19 8522308 E53.8 Hyperglycemia 78429024 R 73.9 Watch carbohydra te intake Long-term current use of anticoagulant 836332982 Z79.01 [id number] Kolton Nevarez MD [facility] [address] [place] [address] 01/25/2025 14:22:27 01/26/2025 07:43:20 Diverticulitis 832454327 K57.92 Patient with continued diverticul ar disease, including a recent flare-up. We will prescribe a course of antibiotic s for conservati ve treatment, but patient is in need of sigmoidect marleen. Unfortunat leo, the patient needs a facility with joint urological and general surgical coverage as the patient has a hypospadia s with a very narrow opening and we were unable to place a Anand catheter prior to surgery. This has not been addressed. Patient states that he wishes to be referred to [facility]. Health Concerns Section Related Observation LastModified by Organization Detai ls LastModified Time None Recorded Concern Status LastModified by Organization Details LastModified Time None Recorded Advance Directives Directive N: Payers Insurance Date Sequence Insurance Name Policy Number Policy Harp Covered Member ID Harp Member ID Guarantor Name 03/30/2024 1 [facility] - DOS ON OR AFTER 21 (MEDICAID REPLACEMENT - HMO) Caseyevelia Kearns [id number] Caseyevelia Kearns 01/17/2025 1 [facility] - DOS ON OR AFTER 21 (MEDICAID REPLACEMENT - HMO) Casey Kearns [id number] Caseyevelia Kearns Notes Date Note Type Note Provider Name and Address Organization Details Recorded Time 02/04/2024 text/html Here for f/u post labs. Tien Valerio MD Attn: Accounting,[address] [facility], [place], [address], [facility] 02/04/2024 16:15:07 03/30/2024 text/html Here for blood pressure f/u. Some times forgets to take second BP pill. Tien Valerio MD Attn: Accounting,[address] [facility], [place], [address], [facility] 03/30/2024 17:21:30 06/30/2024 text/html Here for BP f/u. pt requests rx for tizanidine Tien Valerio MD Attn: Accounting,[address] [facility], [place], [address], [facility] 06/30/2024 17:44:30 01/10/2025 text/html Here for routine f/u. Had a flare of diverticular disease one week ago. He has had abdominal pain and initially diarrhea. Now has multiple non-formed stools Tien Valerio MD Attn: Accounting,[address] [facility], [place], [address], [place] [facility] 01/10/2025 17:39:37 01/25/2025 text/html Patient returns with continued episodes of diverticulitis. It has been approximately a year and a half since I last evaluated him. 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 We were unable to place a Anand catheter at the time and I had informed him that this would need to be either performed in a facility with urological backup or he would need to have this repaired before proceeding to sigmoid colectomy. This has not yet been addressed. He has had several mild attacks of diverticulitis over the past year and a half, with 1 of them happening several weeks ago requiring antibiosis. The pain has not been debilitating, though has kept him out of work. Kolton Nevarez MD [address] [place], [address], [place] [facility] 01/25/2025 15:11:35
--- OUTSIDE RECORDS SUMMARY | 2025-04-15 13:06 | XMS_ITS | Clinical Summary ---
Author Organization [facility] [employer] Address [address] [place] [address] Care Team Providers Care Optical Goods Drill Operator Name Role Phone Meche Kinney MD Primary Care Provider [phone] Source Comments [facility] [employer],non-owned Affiliates and Associated Physician Practices is amultiple site organization consisting of ambulatory clinics and hospital sitesin [place], [place], [place] and [place]. This disclosure is being madepursuant to the Care Everywhere program and may not contain all information available regarding this patient. Last updated 18.[facility] [employer] Allergies No known active allergies Medications * Be aware that medications may not be up to date on this document. Alwaysverify current medications with the patient. HYDROcodone-acet aminophen ([place]) 5-325 MG tablet Take 1 (one) tablet [...] unspecified whether acute cor pulmonale present 05/07/2023 Family History Medical History Relation Name Comments [...] Recorded Patient Health Questionnaire-2 Score 0 06/15/2024 [facility] of Occupat ional Health - Occupational Stress [...] place to sleep or slept in a snf (including now)? No 05/07/2023 Sex and Gender [...] 1:29 PM CDT Height 180.3 cm (5' 11) 06/15/2024 1:29 PM CDT Body Mass Index 25.56 06/15/2024 1:29 PM CDT Plan of Treatment Upcoming Encounters Date Type Department Care Team (Late st Contact Info) Description 06/16/2025 3:00 PM CDT Documentation [address] [address] 06/16/2025 3:10 PM CDT Office Visit [address] [address] Dillon Sandoval MD [address] [phone] Health Maintenance Due Date Last Done Comments [...] series) 2024 DEPRESSION SCREENING 09/22/2024 12/11/2023, 06/10/20 23 INFLUENZA VACCINE (#1) 2025 07/02/2017 SCREENING FOR DIABETES 06/15/2027 , [...] CDT 06/15/2024 Comment:Blood Release to pat i Narrative [facility] INSURANCE BILL - 06/16/2024 8:21 AM CDT Performed at: [facility] - [facility] [address] [place] [address] [id number] [employer] Mounter: Prasanna Valentino PhD, Phone: [phone] us Dillon Sandoval MD LAB - CHEMISTRY ORDERABLES Fi nal Result [facility] INSURANCE BILL [address] [place] [address] from Last 3 Months or Most Recently Relevant to Health Maintenance Insurance [facility] Advance Directives * Full Code (Latest Code Status on File) Date Activated Date Inactivated Comments 05/07/2023 4:02 PM 05/10/2023 2:56 PM Care Teams Optical Goods Drill Operator Relationship Specialty Start Date End Date Meche Kinney MD [address] [place] [address] PCP - General Internal Medicine 8/16/23
--- OUTSIDE RECORDS SUMMARY | 2025-04-15 13:06 | XMS_ITS | Clinical Summary ---
Author Organization [facility] Address [address] [place] [address] Phone Care Team Providers Care Investment Counselor Name Role Phone Unavailable Primary Care Provider [...] Comments Blood Pressure 138/82 10/10/2023 9:38 AM PRACTICE OR STUDENT TEACHER Pulse 82 10/10/2023 9:38 AM PRACTICE OR STUDENT TEACHER Temperature - - Respiratory Rate 20 10/10/2023 9:38 AM PRACTICE OR STUDENT TEACHER Oxygen Saturation 98% 10/10/2023 9:38 AM PRACTICE OR STUDENT TEACHER Inhaled Oxygen Concentration - - Weight 81.6 kg (180 lb) 10/10/2023 9:38 AM PRACTICE OR STUDENT TEACHER Height 180.3 cm (5' 11) 10/10/2023 9:38 AM PRACTICE OR STUDENT TEACHER Body Mass Index 25.1 10/10/2023 9:38 AM PRACTICE OR STUDENT TEACHER Plan of Treatment Health Maintenance Due Date Last Done Comments Hepatitis C Virus (HCV) Screening 1965 TdaP Immunization 1965 Cologuard 2009 Colonoscopy 2009 Colorectal Cancer Screening 2009 Immunochemical Fecal Occult Blood 2009 Pneumococcal Immunization (5 0+ years) (1 of 1 - PCV) 2014 Zoster Immunization (1 of 2) 2014 PSA Discussion 2019 SARS-COV-2 Immunization (3 - 2023- season) 2024 04/24/2021, 03/27/2021 Influenza Immunization (#1) 2025 07/02/2017 Respiratory Syncytial Virus (RSV) Immunization (Adult) (1 - 1-dose 75+ series) 2039 Hepatitis B Immunization Aged Out No longer eligible based on patient's age to complete this topic Human Papillomavirus (HPV) Immunization Aged Out No longer eligible b ased on patient's age to complete this topic Meningococcal Immunization (ACWY) Aged Out No longer eligible b ased on patient's age to complete this topic Rotavirus Immunization Aged Out No lo nger eligible based on patient's age to complete this topic Insurance MEDICAID [employer]
--- OUTSIDE RECORDS SUMMARY | 2025-04-15 13:07 | XMS_ITS | Data Portability ---
Author Organization [facility] [employer], Main Office Address [address] [place] [address] Care Team Providers Care Racebook Writer Name Role Phone PHOENIX REMY Primary Care Provider PHOENIX REMY Referring Provider KOLTON ZAMUDIO General Surgeon Assessment No assessment recorded. Plan of Treatment Reminders Order Date Submit Date Provider Last Modified By Organization Details Last Modified Time Details Appointments None recorded . Lab urinalys is, dipstick 2022 023 [email or web address] [facility] [facility] [address], [address], 3 10:05:00 Referral None recorded . Procedures None recorded . Surgeries None recorded . Imaging US, bladder 2022 023 [email or web address] [facility] [facility] [address], [place], [address], 3 10:06:08 Medication Orders None recorded . Patient TargetsNo targets recorded. Patient InstructionsNo instructions recorded. Reason for Referral None Reported. Results Created Date Observation Date Name Description Value Unit Range Abnormal Flag Note LastModifiedBy Organization Detail LastModifiedTime 05/01/20 23 05/01/2023 urina lysis , dipst ick Leukocytes (reference range: negative feli/ l) Negati ve Not Available [facility] [address] [facility] [address], [place], [address], 05/01/2023 09:50:17 05/01/20 23 05/01/2023 urina lysis , dipst ick Nitrite (reference rage: negative mg/dl) negati ve Not Available [facility] [address] [place] [address] [facility] [address], [place], [address], 05/01/2023 09:50:17 05/01/2005/01/2023 urina lysis , dipst ick Urobilinogen (reference range: 0.2-1 mg/dl) 0.2 Not Available [facility] [place] [address] [place], [place] [address]mar[facility], [place], [address], 05/01/2023 09:50:17 05/01/20 23 05/01/2023 urina lysis , dipst ick Protein (reference range: negative mg/dl) Small Not Available [facility] [address] [place], [place] [address]mar[facility], [place], [address], 05/01/2023 09:50:17 05/01/2005/01/2023 urina lysis , dipst ick pH (reference range: 5-7) 5.5 Not Available [facility] [address] [place], [place] [address], [place], [address], 05/01/2023 09:50:17 05/01/2005/01/2023 urina lysis , dipst ick Blood (reference range: negative Meño/ l) Negati ve Not Available [facility] [address] [place], [place] [address]mar[facility], [place], [address], 05/01/2023 09:50:17 05/01/20 23 05/01/2023 urina lysis , dipst ick Specific [place] (reference range: 1.005-1.030) 1.020 Not Available [facility] [address], [place], [address], 05/01/2023 09:50:17 05/01/20 23 05/01/2023 urina lysis , dipst ick Ketone (reference range: negative mg/dl) Trace Not Available [facility] [address] [place] [address] [address], [place], [address], 05/01/2023 09:50:17 05/01/20 23 05/01/2023 urina lysis , dipst ick Bilirubin (reference range: negative mg/dl) Small Not Available [facility] [address], [place], [address], 05/01/2023 09:50:17 05/01/20 23 05/01/2023 urina lysis , dipst ick Glucose (reference range: negative mg/dl) Negati ve Not Available [facility] [address], [place], [address], 05/01/2023 09:50:17 05/01/20 23 05/01/2023 urina lysis , dipst ick Appearance Clear Not Available [facility] [address] [place] [address] [facility] [address], [place], [address], 05/01/2023 09:50:17 05/01/20 23 05/01/2023 urina lysis , dipst ick Color Yellow Not Available [facility] [place] [address] [facility] [address], [place], [address], 05/01/2023 09:50:17 08/08/20 22 05/29/2022 raven BOSWELL No observ ation record ed. [id number] Not Available 11/20/2022 17:01:56 10/01/19 23 10/01/2022 MRI, shoul troy, w/o contr ast [facility] [address], [place] [address] Angie t Name: FROYLAN, ROSARIO Access ion #: [id number] Sex: M : 1964 0 Locati [...] space: Unrema rkable Page 1 of 2 [facility] Angie t Name: AOL KEARNSN Access ion #: [id number] Sex: M : 1964 0 Exam [...] signed by: Aquilino vela MD Signed Date: 8:13 PM (CT) Dictat ed by: Aquilino vela MD DD: 023 8:13 PM (CT) DT: 8:13 PM (CT) Page 2 of 2 [id number] [facility] (Imaging) [address] [place], [address], 11/20/2022 17:01:56 05/01/20 23 05/01/2023 US, bladd er No observ ation record ed. [facility] [address] [facility] [address], [place], [address], 05/02/2023 14:56:50 Result Notes Documentation Provider Name and Address Organization Details Recorded Time Mri, Shoulder, W/o Contrast : [facility] [address] [place] [address] Patient Name: ROSARIO KEARNS Sex: M : 1965 Location: [facility] Attending Physician: KOLTON QUIROS Ordering Physician: KOLTON QUIROS Exam Date: 10/01/2022 2:39 PM Exam Name: MRI SHOULDER RT WO Admitting Diagnosis(es): RADIOLOGY REPORT - FINAL EXAM: MRI SHOULDER RT WO HISTORY: right shoulder pain COMPARISON: None Available. TECHNIQUE: Multiplanar multisequence imaging of the right shoulder is performed without intravenous contrast. FINDINGS: Osseous:Anatomic alignment. No evidence of a fracture or destructive process. Subchondral reactive changes at the greater tuberosity. Joint space:Unremarkable Page 1 of 2 [facility] Patient Name: ROSARIO KEARNS Sex: M : 1965 Exam Date: 10/01/2022 2:39 PM Exam Name: MRI SHOULDER RT WO Admitting Diagnosis(es): Labrum:Grossly intact AC-joint:AC joint hypertrophic changes, type 2 acromion, moderate subacromial outlet narrowing. Rotator cuff:Diffuse tendinosis of the supraspinatus tendon, possible rim rent tear at the supraspinatus tendon insertion site, image 5-13 and 6-13 versus averaging with a subchondral cyst. The subscapularis and infraspinatus as well as the teres minor are intact Bicipital labral tendon:Incompletely visualized, grossly intact IMPRESSION: See above. Created and electronically signed by: Aquilino Mehta MD Signed Date: 10/01/2022 8:13 PM (CT) Dictated by: Aquilino Mehta MD (CT) (CT) Page 2 of 2 Not Available [facility] 11/20/2022 17:01:56 Problems Name Problem SNOMED Code Status Onset Date Resolution Date Notes Provider Name and Address Organization Details Recorded Time Closed fracture of distal end of radius 14609947 Active Not Available [facility] 3 17:00:22 Dog bite - wound 263620204 Active Not Available [facility] 3 17:00:22 Fracture of forearm 41602479 Active Not Available [facility] 3 17:00:23 Ear problem 771604289 Active 2020 Not Available [facility] 3 17:00:22 Disorder of eye 160865094 Active 2020 Not Available [facility] 3 17:00:22 Acute gout 211604312 Active 2020 Not Available [facility] 3 17:00:23 Tendinitis of foot 889167511 Active 2020 Not Available [facility] 3 17:00:23 Left Achilles tendinitis 2463590613908 02 Active 2020 Not Available [facility] 3 17:00:22 Ingrowing nail of toe of left foot 4461530105144 9107 Active 2021 Not Available [facility] 3 17:00:22 Pain of right shoulder joint 5765928772104 9100 Active 2021 Not Available [facility] 3 17:00:22 Impingemen t syndrome of right shoulder region 8394262773344 02 Active 2021 Not Available [facility] 3 17:00:22 Hypospadia s 693979924 Active 2022 CHERELLE Ridley, [facility] 3 09:49:57 Penile hypospadia s 054415559 Active 2022 CHERELLE Ridley, [facility] 3 09:50:12 Problem Notes None recorded. Procedures Surgical History Date Name Laterality Status Provider Name and Address Organization Details Recorded Time 3 Appendectomy completed Not Available [facility] 023 16:59:24 Tonsillectomy completed Not Available [facility] 11/20/2022 16:59:24 Imaging Results None recorded. Procedure Notes None [...] administe red by the provider 05/01 completed [facility]: 0003- [phone]- 20 Not Available Not Available [...] administe red by the provider 05/01 completed [facility] [phone] -[phone] Not Available Not Available Not Available lidocaine 5 % topical ointment 05/01 completed Not Available Not Available Not Available Virtussin AC 10 mg-100 mg/5 mL oral liquid 12/26 completed Not Available Not Available Not Available Vitals Date Recorded Body height Provider Name an d Address Organization Details Last Updated DateTime 10/10/2022 172.72 cm Not Available [facility] 3 16:59:27 Date Recorded Body mass index (BMI) Body height Heart rate Body weight Systolic And Diastolic Provider Name and Address Organization Details Last Updated DateTime 11/05/2021 25.8 kg/m2 180.34 cm 87 /min 13616.59 g 159/97 mm[Hg] Not Available [facility] 3 16:59:26 Date Recorded Body height Provider Name an d Address Organization Details Last Updated DateTime 05/01/2023 172.72 cm Diana Walker MA [facility] [employer] 05/01/2023 09:47:05 Date Recorded Body mass index (BMI) Body weight Body temperature Oxygen saturation Oxygen saturation in Arterial blood by Pulse oximetry Heart rate Systolic And Diastolic Provider Name and Address Organization Details Last Updated DateTime 3 0.2 kg/m2 453.59 g 98.2 [degF] 97 % 97 % 100 /min 146/88 mm[Hg] MORRIS Sheffield [facility] [employer] 3 09:49:54 Date Recorded Body mass index (BMI) Body height Body weight Provider Name and Address Organization Details Last Updated DateTime 08/08/2022 28.1 kg/m2 172.72 cm 52818.59 g Not Available [facility] 11/20/2022 16:59:27 Date Recorded Body height Provider Name an d Address Organization Details Last Updated DateTime 09/12/2022 172.72 cm Not Available [facility] 3 16:59:27 Social History Question Answer Notes LastModified by Organizat ion Details LastModified Time Tobacco Smoking Status Never Smoker Not Available [facility] 11/20/2022 16:59:12 What Is Your Level Of Caffeine Consumption? None Information not available 05/01/2023 What Was The Date Of Your Most Recent Tobacco Screening? 05/01/2023 [email or web address] Information not available 05/01/2023 Have You Ever Been Counseled For Unhealthy Alcohol Use? No Information not available 05/01/2023 Has Tobacco Cessation Counseling Been Provided? No Information not available 05/01/2023 Sex: Unknown Functional Status Question Answer Note LastModified by Organizat ion Details LastModified Time Do you use any illicit or recreational drugs? No Information not available 05/01/2023 Do you or have you ever used any other forms of tobacco or nicotine? No Information not available 05/01/2023 What is your level of alcohol consumption? 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 Family History Relationship Description Onset Age of this Age Resolved Age Notes LastModified by Organization Details LastModified Time Unspecified Relation Heart disease FATHER S SIDE OF FAMILY [id number] Not available 11/20/2022 16:59:24 Unspecified Relation Family history of malignant neoplasm mom side [id number] Not available 11/20/2022 16:59:24 Brother Family history of stroke [id number] Not available 11/20/2022 16:59:24 Father Family history of stroke [id number] Not available 11/20/2022 16:59:24 Notes:STROKE-BROTHER, CANCER -MOTHERS SIDE OF FAMILY Medical History Condition Response CYSTITIS N BLINDNESS N RHEUMATIC FEVER N KIDNEY STONES N BLADDER PROBLEMS N Enlarged Prostate N MRSA N LUNG DISEASE/DISORDER N HISTORY OF DRUG ABUSE N COPD N RADIATION / CHEMOTHERAPY N BLOOD DISEASES N SHINGLES N BOWEL PROBLEMS N DEPRESSION (INCLUDING POST ) N FAILED BACK SYNDROME N STROKE/TIA N THYROID DISEASE N BENIGN PROSTATIC HYPERPLASIA N OBESITY N GERD/NAUSEA N ANEURYSM N Increased Urination N URINARY/BLADDER/KIDNEY PROBLEMS N CORONARY ARTERY DISEASE (CAD) N Do [...] HAVE YOU BEEN HOSPITALIZED OR SEEN IN [facility] IN THE PAST YEAR ? N DIALYSIS [...] SNOMED-CT Code Diagnosis ICD10 Code Diagnosis Note [id number] Orlando Kiser DPM [facility] [address] [address] 05/11/2021 00:00:00 05/11/2021 10:53:51 [id number] Orlando Kiser DPM [facility] [address] [address] 05/22/2021 00:00:00 05/22/2021 13:13:41 [id number] Orlando Kiser DPM [facility] [address] [address] 06/11/2021 00:00:00 06/11/2021 14:10:01 [id number] Orlando Kiser DPM [facility] [address] [address] 10/22/2021 00:00:00 10/22/2021 10:00:07 [id number] Orlando Kiser DPM [facility] [address] [address] 11/05/2021 00:00:00 11/05/2021 09:47:19 [id number] Kolton Quiros MD [facility] [address] [address] 08/08/2022 00:00:00 08/08/2022 13:53:55 [id number] Kolton Quiros MD [facility] [address] [place] [address] 09/12/2022 00:00:00 09/18/2022 09:59:14 [id number] Kolton Quiros MD [facility] [address] [place] [address] 10/10/2022 00:00:00 10/20/2022 14:24:35 [id number] Mina Rincon MD [facility] [address] [facility] [address] [place] [address] 05/01/2023 09:30:58 05/01/2023 10:06:08 Penile hypospadias 031635236 Q54.1 The patient will need to have urethral dilation and/or meatotomy to place altamirano Will try to coordinate it close to his colon surgery . Health Concerns Section Related Observation LastModified by Organization Detai ls LastModified Time None Recorded Concern Status LastModified by Organization Details LastModified Time None Recorded Advance Directives Directive None Recorded Payers Insurance Date Sequence Insurance Name Policy Number Policy Harp Covered Member ID Harp Member ID Guarantor Name 05/01/2023 1 [facility] - DOS ON OR AFTER 21 (MEDICAID REPLACEMENT - HMO) Rosario Kearns [id number] Rosario Kearns Notes Date Note Type Note Provider Name and Address Organization Details Recorded Time 05/01/2023 text/html 57 yo male with hypospadias. No difficulty voiding. Recently he was to undergo a colon resection. They unable to place a altamirano so it was canceled and he was referred here. Mina Rincon MD [address], [place], [address], [place] [facility] [employer] 05/01/2023 10:05:27
== END 2025-04-15 13:04 | disposition home or self-care (01) ==
PROVIDERS: Visit Provider Internal Medicine Critical Care Medicine
DX: R91.8 Other nonspecific abnormal finding of lung field (principal); J47.9 Bronchiectasis, uncomplicated
CPT/HCPCS: 71046

== ENCOUNTER 2025-06-03 08:16 | Outpatient (CLI) | payer OTHER, SELFPAY ==
--- OUTSIDE RECORDS SUMMARY | 2008-03-07 10:38 | XMS_ITS | Continuity of Care Document ---
Author Organization [facility] [place] [address] [place] [address] [place] [address] Phone Care Team Providers Care Dancer Or Choreographer Name Role Phone Wiley Hayward Unavailable Unavailable Procedures Procedure Date Remove Foreign Body From Eye Advance Directives Directive Yes / No Effective Date File Name No Information Encounters Encounter Description Practice Location Reason(s) For Visit Diagnoses Date Provider Providers Copied on Encounter [facility], [address] [place] [address] [address], [place], [place], [id number], [place] tel:[phone] [facility] No Information [address] Jama. [address] [place] [address], [facility], [place]. tel:[phone] Referring Provider: Wiley jolley, [address], [facility]. tel:[phone] Family History Family Member Type Diagnosis Age At Onset No Information Payers Payer name Insurance type Covered democrat ID Authoriza tion(s) Medicaid [facility] [id number] Social History Type Description Quantity Date Captured Comments Sex Male Smoking Status No Information Chief Complaint And Reason For Visit No Information Reason For Referral Reason For Referral No Information History Of Present Illness Encounter Date Complaint History Of Prese nt Illness No Information Functional Status Date Functional Assessmen t No Information Instructions Date Instruction Additional Infor mation No Information Assessments Type Assessment Date No Information Patient Care Teams Name Effective Dates (start - stop) Status Members No Information
--- OUTSIDE RECORDS SUMMARY | 2025-06-03 08:21 | XMS_ITS | Clinical Summary ---
Author Organization [facility] Address [address] [place] [address] Phone Care Team Providers Care Chairman And Ceo Name Role Phone Unavailable Primary Care Provider [...] Comments Blood Pressure 138/82 10/10/2023 9:38 AM MRI TECH Pulse 82 10/10/2023 9:38 AM MRI TECH Temperature - - Respiratory Rate 20 10/10/2023 9:38 AM MRI TECH Oxygen Saturation 98% 10/10/2023 9:38 AM MRI TECH Inhaled Oxygen Concentration - - Weight 81.6 kg (180 lb) 10/10/2023 9:38 AM MRI TECH Height 180.3 cm (5' 11) 10/10/2023 9:38 AM MRI TECH Body Mass Index 25.1 10/10/2023 9:38 AM MRI TECH Plan of Treatment Health Maintenance Due Date Last Done Comments Hepatitis C Virus (HCV) Screening 1965 TdaP Immunization 1965 Cologuard 2009 Colonoscopy 2009 Colorectal Cancer Screening 2009 Immunochemical Fecal Occult Blood 2009 Pneumococcal Immunization (5 0+ years) (1 of 1 - PCV) 2014 Zoster Immunization (1 of 2) 2014 PSA Discussion 2019 Influenza Immunization (#1) 2025 07/02/2017 SARS-COV-2 Immunization ( - season) 2025 04/24/2021, 03/27/2021 Respiratory Syncytial Virus (RSV) Immunization [...]
--- OUTSIDE RECORDS SUMMARY | 2025-06-03 08:21 | XMS_ITS | Clinical Summary ---
Author Organization [facility] [employer] Address [address] [facility] [place] [address] Care Team Providers Care Cook Chef Name Role Phone Meche Kinney MD Primary Care Provider [phone] Source Comments [facility] [employer],non-owned Affiliates and Associated Physician Practices is amultiple site organization consisting of ambulatory clinics and hospital sitesin [place], [place], [place] and [place]. This disclosure is being madepursuant to the Care Everywhere program and may not contain all information available regarding this patient. Last updated 18.[facility] [employer] Allergies No known active allergies Medications * Be aware that medications may not be up to date on this document. Alwaysverify current medications with the patient. HYDROcodone-mayte taminophen ([place]) 5-325 MG tablet Take 1 (one) tablet [...] 6 hours as needed for Pain Active methylPREDNISol one (Medrol) 4 MG tablet Take 1 (one) tablet by mouth once daily Active folic acid 400 MCG tablet Take 1 (one) tablet by mouth every 7 days Active rivaroxaban (Xarelto) 20 MG tablet Take 1 (one) tablet by mouth daily with food 90 tablet 1 5 11/29/19 26 Active rivaroxaban (Xarelto) 20 MG tablet Take 1 (one) tablet by mouth daily with food 90 tablet 1 5 06/01/20 25 Discontinu ed(Reorder ) Active Problems Problem Noted Date Diagnosed Date Acute saddle pulmonary embol ism, unspecified whether acute cor pulmonale present 05/07/2023 Encounters Date Type Department Care Team Description 06/01/2025 Refill [facility] [address] [place] [id number] Dillon Sandoval MD MEDICATION REFILL from Last 3 Months Family History Medical [...] Recorded Patient Health Questionnaire-2 Score 0 06/15/2024 [facility] - Occupational Stress [...] place to sleep or slept in a custodial (including now)? No 05/07/2023 Sex and Gender [...] Info) Description 06/16/2025 3:00 PM CDT Documentation [address] [address] 06/16/2025 3:10 PM CDT Office Visit [facility] [address] [address] Dillon Sandoval MD [address] [place] [address] Health Maintenance Due Date Last Done Comments [...] 2014 ZOSTER VACCINE (1 of 2) 2014 Respiratory Syncytial Virus (RSV) Vaccine Pt: or over 60 yrs (1 - Risk 60-74 years 1-dose series) 2024 DEPRESSION SCREENING 09/22/2024 12/11/2023, 06/10/20 COVID-19 VACCINE (3 - season) 2025 04/24/2021, 03/27/2021 INFLUENZA VACCINE (#1) 2025 07/02/2017 SCREENING FOR [...] 06/16/2024 8:21 AM CDT Performed at: - [facility] [address] [id number] [employer] Sales Rep: Prasanna Valentino PhD, Phone: [phone] us Dillon Sandoval MD LAB - CHEMISTRY ORDERABLES Fi nal Result [facility] INSURANCE BILL [id number] [place] [address] from Last 3 Months or Most Recently Relevant to Health Maintenance Insurance [facility] Advance Directives * Full Code (Latest Code Status on File) Date Activated Date Inactivated Comments 05/07/2023 4:02 PM 05/10/2023 2:56 PM Care Teams Cook Chef Relationship Specialty Start Date End Date Meche Kinney MD [address] [place] [address] PCP - General Internal Medicine 05/07/23
--- NOTE | 2025-06-10 17:11 | P.PCNPFT_ITS ---
PFT Procedure Performed PFT Procedure Performed Spirometry with Pre/Post Bronchodilator Plethysmography (Lung Vol) Diffusing Cap (DLCO) Flow Vol Loop PFT Interpretation DOS: 06/03/2025 REQUESTING: Aleah Disla MD REASON FOR TESTING: bronchiectasis PULMONARY FUNCTION TESTS Results are reliable and reproducible. Repeatability of spirometry FEV1 maneuver pre and post bronchodilator is Grade A. Ralph: GLI 2012 reference equations were used. Spirometry: The pre-bronchodilator FEV1 is 2.92 L, 81%, normal. The pre- bronchodilator FVC is 4.08 L, 88%, normal. The FEV1/FVC ratio is 72%, normal. After bronchodilator, the FEV1 is 2.84 L, 79%, -3%. After bronchodilator, the FVC is 3.85 L, 83%, -6%. The FEV1/FVC ratio is 74%. Lung volumes: The total lung capacity is 5.96 L, 85%, normal. the functional residual capacity is 2.70 L, 74%, normal. The residual volume is 1.88 L, 84%, normal. The RV/TLC is 32%, normal. Airway resistance is increased. Diffusion: DLCO is 26.5, 93%, normal. The DLCO/VA is 5.12, 121%, normal. Flow volume loop: The flow volume loop is unremarkable. IMPRESSION: This study shows normal spirometry without response to bronchodilator, normal lung volumes and normal diffusion. No prior studies for comparison. Aleah Disla MD
--- NOTE | 2025-06-10 17:12 | WPDSIXMINUTE ---
Six Minute Walk Procedure Procedure Performed Pulmonary Stress Test (6 min walk) Six Minute Walk Six Minute Walk: DATE OF SERVICE: 06/03/2025 REQUESTING: Aleah Disla MD REASON FOR TESTING: bronchiectasis SIX MINUTE WALK This test was conducted per ATS guidelines. The initial saturation was 97%, and initial heart rate was 85 beats per minute. The patient walked without stopping, completing 335 m/1100 ft. The saturation at the end of testing was 97%, and the heart rate was 91 beats per minute. His Xu score was 0 at the beginning and at the end of testing. IMPRESSION: This is a normal study. The patient did not require supplemental oxygen with exertion. Aleah Disla MD
== END 2025-06-03 08:17 | disposition home or self-care (01) ==
PROVIDERS: Visit Provider Internal Medicine Critical Care Medicine
DX: J47.9 Bronchiectasis, uncomplicated (principal)
CPT/HCPCS: 94060; 94618; 94726; 94729

== ENCOUNTER 2025-08-01 09:36 | Outpatient (CLI) | payer OTHER, SELFPAY ==
--- NOTE | ~2025-08-01 | XR_ITS ---
EXAMINATION: XR chest 2V DATE: 08/01/2025 10:45 INDICATION: Diverticulitis TECHNIQUE: Frontal and lateral views of the chest were obtained. COMPARISON: April 15, 2025 FINDINGS: Atelectatic process right middle lobe unchanged in appearance from the previous exam. The remaining lung mcguire are clear. Heart size normal. No effusion or pneumothorax seen. No subphrenic free air identified. The bones appear intact. IMPRESSION: Stable chest x-ray. Reviewed, dictated and finalized at location A. ICAL CARE UNIT MANAGER IMPRESSION: Stable chest x-ray.
--- OUTSIDE RECORDS SUMMARY | 2025-08-01 10:15 | XMS_ITS | Clinical Summary ---
Author Organization [facility] Address [address] [place] [address] Phone Care Team Providers Care Tanning Consultant Name Role Phone Unavailable Primary Care Provider [...] Comments Blood Pressure 138/82 10/10/2023 9:38 AM LIMOUSINE RENTAL CLERK Pulse 82 10/10/2023 9:38 AM LIMOUSINE RENTAL CLERK Temperature - - Respiratory Rate 20 10/10/2023 9:38 AM LIMOUSINE RENTAL CLERK Oxygen Saturation 98% 10/10/2023 9:38 AM LIMOUSINE RENTAL CLERK Inhaled Oxygen Concentration - - Weight 81.6 kg (180 lb) 10/10/2023 9:38 AM LIMOUSINE RENTAL CLERK Height 180.3 cm (5' 11) 10/10/2023 9:38 AM LIMOUSINE RENTAL CLERK Body Mass Index 25.1 10/10/2023 9:38 AM LIMOUSINE RENTAL CLERK Plan of Treatment Health Maintenance Due Date [...]
--- OUTSIDE RECORDS SUMMARY | 2025-08-01 10:15 | XMS_ITS | Clinical Summary ---
Author Organization [facility] [employer] Address [address] [place] [place] [address] Care Team Providers Care Sign Painter Helper Name Role Phone Meche Kinney MD Primary Care Provider [phone] Source Comments [facility] [employer],non-owned Affiliates and Associated Physician Practices is amultiple site organization consisting of ambulatory clinics and hospital sitesin [place], [place], [place] and [place]. This disclosure is being madepursuant to the Care Everywhere program and may not contain all information available regarding this patient. Last updated 18.[facility] [employer] Allergies No known active allergies Medications * Be aware that medications may not be up to date on this document. Alwaysverify current medications with the patient. HYDROcodone-acet aminophen (Fleming) 5-325 MG tablet Take 1 (one) tablet [...] mouth daily with food 90 tablet 1 06/01/2025 Active Active Problems Problem Noted Date Diagnosed Date Acute saddle pulmonary embol ism, unspecified whether acute cor pulmonale present 05/07/2023 Encounters Date Type Department Care Team Description 06/16/2025 3:10 PM CDT Office Visit [address] [address] Dillon Sandoval MD Acute saddle pulmonary embolism, unspecified whether acute cor pulmonale present (HCC) (Primary Dx); DIANA (obstructive sleep apnea); Anticoagulation management encounter; Erythrocytosis 06/01/[address] [address] Dillon Sandoval MD MEDICATION REFILL from Last [...] Date Recorded Patient Health Questionnaire-2 Score 0 06/16/2025 [facility] - Occupational Stress [...] place to sleep or slept in a jail (including now)? No 05/07/2023 Sex and Gender Information Value Date Recorded Sex Assigned at Not on file Legal Sex Male 12:30 PM CDT Gender Identity Not on file Sexual Orientation Not on file Last Filed Vital Signs Vital Sign Reading Time Taken Comments Blood Pressure 111/80 06/16/2025 3:25 PM CDT Pulse 76 06/16/2025 3:25 PM CDT Temperature 36.8 C (98.3 F) 06/16/2025 3:25 PM CDT Respiratory Rate 16 06/15/2024 1:29 PM CDT Oxygen Saturation 97% 06/16/2025 3:25 PM CDT Inhaled Oxygen Concentration - - Weight 84.6 kg (186 lb 6.4 oz) 06/16/2025 3:25 P M CDT Height 180.3 cm (5' 11) 06/16/2025 3:25 PM CDT Body Mass Index 26 06/16/2025 3:25 PM CDT Plan of Treatment Upcoming Encounters Date Type Department Care Team (Late st Contact Info) Description 06/20/2026 1:40 PM CDT Documentation [address] [address] 06/20/2026 1:50 PM CDT Office Visit [facility] [address] [address] Dillon Sandoval MD [address] [place] [phone] Health Maintenance Due Date Last Done [...] - Risk 60-74 years 1-dose series) 2024 COVID-19 VACCINE (3 - season) 2025 04/24/2021, 03/27/2021 INFLUENZA VACCINE (#1) 2025 07/02/2017 SCREENING FOR DIABETES 06/16/2028 , 06/15/2024, 12/11/2023, Additional history exists DEPRESSION SCREENING Completed 06/16/2025, 12/11/2023, 06/10/2023 HEPATITIS B VACCINE Aged Out No longe [...] Associated Diagnosis Comments COMPREHENSIVE METABOLIC PANEL Routine 06/16/2025 2:37 PM CDT Acute saddle pulmonary embolism, unspecified whether acute cor pulmonale present (HCC) CBC W AUTO DIFFERENTIAL (CANCER CARE) Routine 06/16/2025 2:36 PM CDT Acute saddle pulmonary embolism, unspecified whether acute cor pulmonale present (HCC) from Last 3 Months Results * (ABNORMAL) COMPREHENSIVE METABOLIC PANEL (06/16/2025 2:37 PM CDT) Glucose 80 70 - 99 mg/dL [facility] INSURANCE BILL BUN 17 8 - 27 mg/dL [facility] INSURANCE BILL Creatinine 1.42(H) 0.76 - 1.27 mg/dL [facility] INSURANCE BILL eGFR by CKD-EPI 57(L) >59 mL/min/1.7 3 [facility] INSURANCE BILL BUN/Creatinine Ratio 12 10 - 24 [facility] INSURANCE BILL Sodium 135 134 - 144 mmol/L [facility] INSURANCE BILL Potassium 4.0 3.5 - 5.2 mmol/L [facility] INSURANCE BILL Chloride 97 96 - 106 mmol/L [facility] INSURANCE BILL CO2 22 20 - 29 mmol/L [facility] INSURANCE BILL Calcium 9.0 8.6 - 10.2 mg/dL [facility] INSURANCE BILL Protein Total 7.0 6.0 - 8.5 g/dL [facility] INSURANCE BILL Albumin 3.9 3.8 - 4.9 g/dL [facility] INSURANCE BILL Globulin Total 3.1 1.5 - 4.5 g/dL [facility] INSURANCE BILL Bilirubin Total 0.6 0.0 - 1.2 mg/dL [facility] INSURANCE BILL Alkaline Phosphatase 125(H) 47 - 123 IU/L [facility] INSURANCE BILL Comment:Please note refere nce interval change AST 18 0 - 40 IU/L [facility] INSURANCE BILL ALT 12 0 - 44 IU/L [facility] INSURANCE BILL Blood BLOOD SPECIMEN / Unknown 06/16/2025 2:37 PM CDT 06/16/2025 Comment:Blood Release to pat i [facility] INSURANCE BILL - 06/17/2025 8:12 AM CDT Performed at: [address] [id number] Water Plant Pump Operator Supervisor: Prasanna Valentino PhD, Phone: [phone] us Dillon Sandoval MD LAB - CHEMISTRY ORDERABLES Fi nal Result [facility] INSURANCE BILL [address] [place] [address] * (ABNORMAL) CBC W AUTO DIFFERENTIAL (CANCER CARE) (06/16/2025 2:36 PM CDT) [facility] WBC 9.8 4.4 - 10.7 x10E9/L 06/16/2025 2:41 PM CDT [facility] Neutrophils % 71.5 44.0 - 73.0 % 06/16/2025 2:41 PM CDT [facility] Lymphocytes % 17.3(L) 20.0 - 43.0 % 06/16/2025 2:41 PM CDT [facility] Monocytes % 7.3 5.0 - 13.0 % 06/16/2025 2:41 PM CDT [facility] Eosinophils % 2.8 0.0 - 6.0 % 06/16/2025 2:41 PM CDT [facility] Basophils % 0.6 0.0 - 2.0 % 06/16/2025 2:41 PM CDT [facility] Immature Granulocytes 0.5 <=1 % 06/16/2025 2:41 PM CDT [facility] Neutrophil Absolute 7.00 2.01 - 7.14 x10E9/L 06/16/2025 2:41 PM CDT [facility] Lymphocytes Absolute 1.69 1.07 - 3.94 x10E9/L 06/16/2025 2:41 PM CDT [facility] Monocytes Absolute 0.71 0.26 - 1.07 x10E9/L 06/16/2025 2:41 PM CDT [facility] Eosinophils Absolute 0.27 0 - 0.47 x10E9/L 06/16/2025 2:41 PM CDT [facility] Basophils Absolute 0.06 0 - 0.08 x10E9/L 06/16/2025 2:41 PM CDT [facility] RBC 5.07 3.80 - 5.40 x10E12/L 06/16/2025 2:41 PM CDT [facility] Hemoglobin 16.4 12.0 - 17.6 gm/dL 06/16/2025 2:41 PM CDT [facility] Hematocrit 47.5 35.2 - 51.7 % 06/16/2025 2:41 PM CDT [facility] MCV 93.7 80.7 - 98.3 fl 06/16/2025 2:41 PM CDT [facility] MCH 32.3 26.7 - 34.0 pg 06/16/2025 2:41 PM CDT [facility] MCHC 34.5 30.8 - 35.9 gm/dL 06/16/2025 2:41 PM CDT [facility] RDW-CV 14.5 12.1 - 14.9 % 06/16/2025 2:41 PM CDT [facility] Platelet Count 186 153 - 416 x10E9/L 06/16/2025 2:41 PM CDT [facility] MPV 7.7(L) 9.4 - 12.9 fl 06/16/2025 2:41 PM CDT [facility] NRBC 0.0 <=0 /100 WBC 06/16/2025 2:41 PM CDT [facility] Blood BLOOD SPECIMEN / Unknown 06/16/2025 2:36 PM CDT 06/16/2025 2:36 PM CDT Dillon Sandoval MD LAB - HEMATOLOGY ORDERABLES F inal Result [facility] [address] from Last 3 Months Insurance [facility] Advance Directives * Full Code (Latest Code Status on File) Date Activated Date Inactivated Comments 05/07/2023 4:02 PM 05/10/2023 2:56 PM Care Teams Sign Painter Helper Relationship Specialty Start Date End Date Meche Kinney MD [address] [place] [address] PCP - General Internal Medicine 05/07/23
--- OUTSIDE RECORDS SUMMARY | 2025-08-01 10:15 | XMS_ITS | Data Portability ---
Author Organization [facility] LINAShayla Jefferson Address [address] [place] [address] Care Team Providers Care Record Press Operator Name Role Phone ABIMAEL RUBIO Primary Care Provider Unavailabl e Assessment No assessment recorded. Plan of Treatment Reminders Order Date Submit Date Provider Last Modified By Organization Details Last Modified Time Details Appointments None recorded. Lab None recorded. Referral general surgeon referral 2024 025 [email or web address] [email or web address] [facility], [address] [place], [address], 15:37:33 Procedures None recorded. Surgeries None recorded. Imaging None recorded. Medication Orders tramadol 50 mg tablet 2024 025 [facility], [address] [place] [address], [id number], 5 17:14:46 amoxicillin 875 mg-potassiu m clavulanate 125 mg tablet 2024 025 [facility], [address] [place] [address], [id number], 5 13:17:40 amoxicillin 875 mg-potassiu m clavulanate 125 mg tablet 2024 025 [place] [address] [facility], [address] [place] [address], [id number], 5 13:08:19 ergocalcife rol (vitamin D2) 1,250 mcg (50,000 unit) capsule [address] [facility], [address] [place] [address], [id number], 5 16:02:57 tizanidine 4 mg tablet 2023 [facility], [address] [place] [address], [id number], 5 17:07:13 losartan 100 mg-hydrochl orothiazide 12.5 mg tablet 2023 [facility], [address] [place] [address], [id number], 5 14:05:49 losartan 100 mg-hydrochl orothiazide 12.5 mg tablet 2023 [facility], [address] [place] [address], [id number], 4 13:18:53 losartan 50 mg tablet 2023 [facility], [address] [place] [address], [id number], 4 17:21:26 Patient TargetsNo targets recorded. Patient Instructions Encounter Date Encounter Id Patient Instructions Last Modified By Organization Details Last Modified Time 03/30/2024 [id number] learning about high blood sugar [email or web address] Not available 03/30/2024 17:21:27 learning about high blood pressure [email or web address] Not available 03/30/2024 17:21:27 06/30/2024 [id number] learning about high blood sugar [email or web address] Not available 06/30/2024 17:43:56 A healthy lifestyle: care instructions Not available 07/01/2024 14:20:15 back care and preventing injuries: care instructions [email or web address] Not available 06/30/2024 17:43:55 learning about high blood pressure [email or web address] Not available 06/30/2024 17:43:55 01/10/2025 [id number] learning about high blood sugar [email or web address] Not available 01/10/2025 17:39:09 folate deficienc y anemia: care instructions [email or web address] Not available 01/10/2025 17:39:09 learning about high blood pressure [email or web address] Not available 01/10/2025 17:39:09 diverticulitis: care instructions [email or web address] Not available 01/10/2025 17:37:03 learning about diverticulosis and diverticulitis [email or web address] Not available 01/10/2025 17:37:03 07/13/2025 [id number] learning about high blood pressure [email or web address] Not available 07/13/2025 23:47:18 Reason for Referral General Surgeon Referral for [...] 1999 panel - Serum or Plasm a creatinine [...] 1999 panel - Serum or Plasm a potassium 4 mmol/ L low: 3.5mmo l/Lhig h: 5.2mmo l/L Potas sium 4.0 3.5 - 5.2 mmol/ L [facility] RP INSUR ANCE BILL Not Available Not Available 11/29/2024 04:29:16 06/15/20 24 06/16/2024 Compr ehens idalia metab olic 1999 panel - Serum or Plasm a chloride [...] 11/29/2024 04:29:16 06/15/20 24 06/16/2024 Compr ehens idaila metab olic 2000 panel - Serum or [...] 1999 panel - Serum or Plasm a AST [...] - Serum or Plasm a Unknown Analyte [facility] at: 01 - [facility] [place] [phone] [facility] or: Anson sheets PhD, Not [...] - 6.0 % 06/15 1:17 PM CDT [facility] [...] 0.7 <=1 % 06/15 1:17 PM CDT [facility] Not Available Not Available 01/10/2025 09:59:53 06/15/20 24 06/15/2024 CBC W Auto Diffe renti al panel - Blood neutrophils [#/volume] in blood by automated count 5.91 text: 2.01 - 7.14 x10e9/ L Neutr ophil Absol beaver 5.91 2.01 - 7.14 x10E9 /L 06/15 1:17 PM CDT [facility] Not Available Not Available 01/10/2025 09:59:53 06/15/20 24 06/15/2024 CBC W Auto Diffe renti al panel - Blood lymphocytes [#/volume] in blood by automated count 1.96 text: 1.07 - 3.94 x10e9/ L Lymph ocyte s Absol beaver 1.96 1.07 - 3.94 x10E9 /L 06/15 1:17 PM CDT [facility] STM Not Available Not Available 01/10/2025 09:59:53 06/15/20 24 06/15/2024 CBC W Auto Diffe renti al panel - Blood monocytes [#/volume] in blood by automated count 0.6 text: 0.26 - 1.07 x10e9/ L Monoc ytes Absol beaver 0.60 0.26 - 1.07 x10E9 /L 06/15 1:17 PM CDT [facility] STM Not Available Not Available 01/10/2025 09:59:53 06/15/2006/15/2024 CBC W Auto Diffe renti al panel - Blood eosinophils [#/volume] in blood by automated count 0.3 text: 0 - 0.47 x10e9/ L Eosin ophil s Absol beaver 0.30 0 - 0.47 x10E9 /L 06/15 1:17 PM CDT [facility] STM Not Available Not Available 01/10/2025 09:59:53 06/15/2006/15/2024 CBC W Auto Diffe renti al panel - Blood basophils [#/volume] in blood by automated count 0.05 text: 0 - 0.08 x10e9/ L Basop hils Absol beaver 0.05 0 - 0.08 x10E9 /L 06/15 1:17 PM CDT [facility] STM Not Available Not Available 01/10/2025 09:59:53 06/15/20 24 06/15/2024 CBC W Auto Diffe renti al panel - Blood erythrocytes [#/volume] in blood by automated count 5.16 text: 3.80 - 5.40 x10e12 /L RBC 5.16 3.80 - 5.40 x10E1 2/L 06/15 1:17 PM CDT [facility] STM Not Available Not Available 01/10/2025 09:59:53 06/15/2006/15/2024 CBC W Auto Diffe renti al panel - Blood hemoglobin [mass/volume ] in blood 16.2 text: 12.0 - 17.6 gm/dL Hemog lobin 16.2 12.0 - 17.6 gm/dL 06/15 1:17 PM CDT [facility] STM Not Available Not Available 01/10/2025 09:59:53 06/15/2006/15/2024 CBC W Auto Diffe renti al panel - Blood hematocrit [volume fraction] of blood by automated count 46.6 % low: 35.2%h igh: 51.7% Hemat ocrit 46.6 35.2 - 51.7 % 06/15 1:17 PM CDT [facility] Not Available Not Available 01/10/2025 09:59:53 06/15/2006/15/2024 CBC W Auto Diffe renti al panel - Blood MCV [entitic mean volume] in red blood cells by automated count 90.3 fL low: 80.7fL high: 98.3fL MCV 90.3 80.7 - 98.3 fl 06/15 1:17 PM CDT [facility] Not Available Not Available 01/10/2025 09:59:53 06/15/20 24 06/15/2024 CBC W Auto Diffe renti al panel - Blood MCH [entitic mass] by automated count 31.4 pg low: 26.7pg high: 34pg MCH 31.4 26.7 - 34.0 pg 06/15 1:17 PM CDT [facility] Not Available Not Available 01/10/2025 09:59:53 06/15/2006/15/2024 CBC W Auto Diffe renti al panel - Blood MCHC [entitic mass/volume] in red blood cells by automated count 34.8 text: 30.8 - 35.9 gm/dL MCHC 34.8 30.8 - 35.9 gm/dL 06/15 1:17 PM CDT [facility] Not Available Not Available 01/10/2025 09:59:53 06/15/20 24 06/15/2024 CBC W Auto Diffe renti al panel - Blood erythrocyte [distwidth] in red blood cells by automated count 12.4 % low: 12.1%h igh: 14.9% RDW-C V 12.4 12.1 - 14.9 % 06/15 1:17 PM CDT [facility] Not Available Not Available 01/10/2025 09:59:53 06/15/20 24 06/15/2024 CBC W Auto Diffe renti al panel - Blood platelets [#/volume] in blood by automated count 189 text: 153 - 416 x10e9/ L Plate let Count 189 153 - 416 x10E9 /L 06/15 1:17 PM CDT [facility] Not Available Not Available 01/10/2025 09:59:53 06/15/20 24 06/15/2024 CBC W Auto Diffe renti al panel - Blood platelet [entitic mean volume] in blood by automated count 7.8 fL low: 9.4fLh igh: 12.9fL low MPV 7.8 (L) 9.4 - 12.9 fl 06/15 1:17 PM CDT [facility] STM Not Available Not Available 01/10/2025 09:59:53 06/15/2006/15/2024 CBC W Auto Diffe renti al panel - Blood nucleated erythrocytes /leukocytes [ratio] in blood by automated count 0 text: <=0 /100 WBC NRBC 0.0 <=0 /100 WBC 06/15 1:17 PM CDT [facility] STM Not Available Not Available 01/10/2025 [...] anshul consu ltati on, pleas e call [phone]. ===== ===== ===== ===== ===== ===== ===== ===== ===== ===== ===== ===== ===== === Not Available [facility] [place] [place] [facility] [address] [facility], [place], [address], 10/26/2024 19:08:34 10/20/1910/26/2024 COMPL IANCE DRUG HAFSA SIS, UR pdf . Not Available [facility] [place] [place] [facility] [address] [facility], [place], [address], 10/26/2024 19:08:34 06/16/2006/17/2025 CMP, serum or plasm a glucose, qn [mass/volume ], serum or plasma 80 mg/dL low: 70mg/d Lhigh: 99mg/d L Not Available Not Available 07/12/2025 09:12:44 06/16/2006/17/2025 CMP, serum or plasm a BUN 17 mg/dL low: 8mg/dL high: 27mg/d L Not Available Not Available 07/12/2025 09:12:44 06/16/2006/17/2025 CMP, serum or plasm a creatinine, serum or plasma 1.42 mg/dL low: 0.76mg /dLhig h: 1.27mg /dL high Not Available Not Available 07/12/2025 09:12:44 06/16/2006/17/2025 CMP, serum or plasm a glomerular filtration rate/1.73 sq M predicted, qn, creatinine based formula (CKD-epi), serum or plasma or blood 57 mL/mi n/1.7 3 low: 59mL/m in/1.7 3 low Not Available Not Available 07/12/2025 09:12:44 06/16/2006/17/2025 CMP, serum or plasm a BUN/creatini ne ratio 12 low: 10high : 24 Not Available Not Available 07/12/2025 09:12:44 06/16/2006/17/2025 CMP, serum or plasm a sodium 135 mmol/ L low: 134mmo l/Lhig h: 144mmo l/L Not Available Not Available 07/12/2025 09:12:44 06/16/2006/17/2025 CMP, serum or plasm a potassium 4 mmol/ L low: 3.5mmo l/Lhig h: 5.2mmo l/L Not Available Not Available 07/12/2025 09:12:44 06/16/2006/17/2025 CMP, serum or plasm a chloride 97 mmol/ L low: 96mmol /Lhigh : 106mmo l/L Not Available Not Available 07/12/2025 09:12:44 06/16/2006/17/2025 CMP, serum or plasm a CO2 22 mmol/ L low: 20mmol /Lhigh : 29mmol /L Not Available Not Available 07/12/2025 09:12:44 06/16/2006/17/2025 CMP, serum or plasm a calcium 9 mg/dL low: 8.6mg/ dLhigh : 10.2mg /dL Not Available Not Available 07/12/2025 09:12:44 06/16/2006/17/2025 CMP, serum or plasm a protein, total, serum 7 g/dL low: 6g/dLh igh: 8.5g/d L Not Available Not Available 07/12/2025 09:12:44 06/16/2006/17/2025 CMP, serum or plasm a albumin 3.9 g/dL low: 3.8g/d Lhigh: 4.9g/d L Not Available Not Available 07/12/2025 09:12:44 06/16/2006/17/2025 CMP, serum or plasm a globulin total 3.1 g/dL low: 1.5g/d Lhigh: 4.5g/d L Not Available Not Available 07/12/2025 09:12:44 06/16/2006/17/2025 CMP, serum or plasm a bilirubin total 0.6 mg/dL low: 0mg/dL high: 1.2mg/ dL Not Available Not Available 07/12/2025 09:12:44 06/16/2006/17/2025 CMP, serum or plasm a alkaline phosphatase 125 text: 47 - 123 IU/L high Ple ase note refer ence august egan e Not Available Not Available 07/12/2025 09:12:44 06/16/2006/17/2025 CMP, serum or plasm a AST 18 text: 0 - 40 IU/L Not Available Not Available 07/12/2025 09:12:44 06/16/2006/17/2025 CMP, serum or plasm a ALT 12 text: 0 - 44 IU/L Not Available Not Available 07/12/2025 09:12:44 06/16/2006/17/2025 CMP, serum or plasm a no coding or coding display name was found [facility] at: - [place] [phone] [facility] Direct or: Anson sheets PhD, Not Available Not Available 09:12:44 06/16/2006/17/2025 CMP, serum or plasm a lab interpretati on Abnorm al Not Available Not Available 09:12:44 06/16/2006/16/2025 CBC w/ auto diff WBC, auto, blood 9.8 text: 4.4 - 10.7 x10e9/ L Not Available Not Available 07/12/2025 09:12:45 06/16/2006/16/2025 CBC w/ auto diff neutrophils/ 100 leukocytes, automated, blood (obs) 71.5 % low: 44%hig h: 73% Not Available Not Available 07/12/2025 09:12:45 06/16/2006/16/2025 CBC w/ auto diff lymphocytes/ 100 leukocytes, automated, blood (obs) 17.3 % low: 20%hig h: 43% low Not Available Not Available 07/12/2025 09:12:45 06/16/2006/16/2025 CBC w/ auto diff monocytes/10 0 leukocytes, automated, blood (obs) 7.3 % low: 5%high : 13% Not Available Not Available 07/12/2025 09:12:45 06/16/20 25 06/16/2025 CBC w/ auto diff eosinophils/ 100 leukocytes, automated, blood (obs) 2.8 % low: 0%high : 6% Not Available Not Available 07/12/2025 09:12:45 06/16/2006/16/2025 CBC w/ auto diff basophils/10 0 leukocytes, automated, blood (obs) 0.6 % low: 0%high : 2% Not Available Not Available 07/12/2025 09:12:45 06/16/2006/16/2025 CBC w/ auto diff immature granulocytes /100 leukocytes, automated, blood (obs) 0.5 % high: 1% Not Available Not Available 07/12/2025 09:12:45 06/16/2006/16/2025 CBC w/ auto diff neutrophil count, absolute (anc), blood (obs) 7 text: 2.01 - 7.14 x10e9/ L Not Available Not Available 07/12/2025 09:12:45 06/16/2006/16/2025 CBC w/ auto diff lymphocytes, quantitative , blood, automated count (obs) 1.69 text: 1.07 - 3.94 x10e9/ L Not Available Not Available 07/12/2025 09:12:45 06/16/2006/16/2025 CBC w/ auto diff monocytes, count, automated, blood (obs) 0.71 text: 0.26 - 1.07 x10e9/ L Not Available Not Available 07/12/2025 09:12:45 06/16/2006/16/2025 CBC w/ auto diff eosinophils, auto, blood, absolute 0.27 text: 0 - 0.47 x10e9/ L Not Available Not Available 07/12/2025 09:12:45 06/16/2006/16/2025 CBC w/ auto diff basophils, quant, auto, blood (obs) 0.06 text: 0 - 0.08 x10e9/ L Not Available Not Available 07/12/2025 09:12:45 06/16/2006/16/2025 CBC w/ auto diff RBC count, blood 5.07 text: 3.80 - 5.40 x10e12 /L Not Available Not Available 07/12/2025 09:12:45 06/16/20 25 06/16/2025 CBC w/ auto diff hemoglobin (Hb), blood 16.4 text: 12.0 - 17.6 gm/dL Not Available Not Available 07/12/2025 09:12:45 06/16/2006/16/2025 CBC w/ auto diff hematocrit, automated count, blood 47.5 % low: 35.2%h igh: 51.7% Not Available Not Available 07/12/2025 09:12:45 06/16/2006/16/2025 CBC w/ auto diff MCV, blood 93.7 fL low: 80.7fL high: 98.3fL Not Available Not Available 07/12/2025 09:12:45 06/16/2006/16/2025 CBC w/ auto diff MCH, qn, automated (obs) 32.3 pg low: 26.7pg high: 34pg Not Available Not Available 07/12/2025 09:12:45 06/16/2006/16/2025 CBC w/ auto diff MCHC, qn, automated (obs) 34.5 text: 30.8 - 35.9 gm/dL Not Available Not Available 07/12/2025 09:12:45 06/16/2006/16/2025 CBC w/ auto diff erythrocyte distribution width, ratio, automated (obs) 14.5 % low: 12.1%h igh: 14.9% Not Available Not Available 07/12/2025 09:12:45 06/16/2006/16/2025 CBC w/ auto diff platelets, auto, blood 186 text: 153 - 416 x10e9/ L Not Available Not Available 07/12/2025 09:12:45 06/16/2006/16/2025 CBC w/ auto diff platelet mean volume, qn, automated, blood (obs) 7.7 fL low: 9.4fLh igh: 12.9fL low Not Available Not Available 07/12/2025 09:12:45 06/16/2006/16/2025 CBC w/ auto diff nucleated erythrocytes /100 leukocytes, ratio, automated, blood (obs) 0 text: <=0 /100 WBC Not Available Not Available 07/12/2025 09:12:45 06/16/2006/16/2025 CBC w/ auto diff lab interpretati on Abnorm al Not Available Not Available 09:12:45 03/17/20 25 03/17/2025 XR, chest No observ ation record ed. [address], [place], [address], 03/17/2025 16:48:00 03/21/20 25 03/21/2025 CT, chest , w/o contr ast No observ ation record ed. [address] [place], [address], 03/21/2025 14:32:58 Result Notes None recorded. Problems Name Problem SNOMED Code Status Onset Date Resolution Date Notes Provider Name and Address Organization Details Recorded Time Low back pain 705908747 Active 2021 Not Available [facility] 07:50:17 Essential hypertension 80380068 Active 2023 Tien Valerio MD Attn: Accounting ,[address] [place], [address] , [facility] 17:27:43 History of deep vein thrombosis 253501508 Active 2023 Tien Valerio MD Attn: Accounting ,[address] [place], [address] , [facility] 17:28:30 History of pulmonary embolus 830263635 Active 2023 Tien Valerio MD Attn: Accounting ,[address] [place], [address] , [facility] 17:28:54 Screening for malignant neoplasm of prostate Active 2023 Tien Valerio MD Attn: Accounting ,[address] [place], [address] , [facility] 17:33:38 Long-term current use of anticoagulant 349294944 Active 2023 Tien Valerio MD Attn: Accounting ,[address] [place], [address] , [facility] 04/03/202 4 17:35:06 Diverticular disease 503589622 Active 2023 Tien Valerio MD Attn: Accounting ,[address] [facility], [place], [address] , [place] [facility] 4 17:36:23 Vitamin D deficiency 18648900 Active 2023 Tien Valerio MD Attn: Accounting ,[address] [facility], [place], [address] , [place] [facility] 4 12:49:09 Macrocytosis 252697010 Active 2023 Tien Valerio MD Attn: Accounting ,[address] [facility], [place], [address] , [place] [facility] 4 12:49:34 Hyperglycemia 14888830 Active 2023 Tien Valerio MD Attn: Accounting ,[address] [place], [address] , [place] [facility] 4 12:50:28 Folic acid deficiency 599070099 Active 2023 Tien Valerio MD Attn: Accounting ,[address] [place], [address] , [place] [facility] 4 07:30:18 Medication monitoring Active 2024 Tien Valerio MD Attn: Accounting ,[address] [place], [address] , [place] [facility] 5 01:58:05 Diverticuliti s 019997341 Active 2024 Tien Valerio MD Attn: Accounting ,[address] [place], [address] , [place] [facility] 5 17:35:53 Problem Notes None recorded. Procedures Surgical History Date Name Laterality Status Provider Name and Address Organization Details Recorded Time Appendectomy completed CHERELLE Chung - [facility] 05/15/2021 14:08:07 Tonsillectomy completed Nitin Porter MA [place] - [facility] 05/15/2021 14:08:22 Imaging Results None recorded. Procedure [...] Not Available metronida zole 500 mg tablet TAKE ONE TABLET BY MOUTH AT 1pm, 2pm, AND 11pm THE DAY BEFORE surgery 07/13 completed Not Available Not Available Not Available [...] mg tablet TAKE ONE TABLET BY MOUTH AT 2pm THE DAY BEFORE surgery 07/13 completed Not Available Not Available Not Available tramadol 50 mg tablet TAKE 1 TABLET BY MOUTH TWICE DAILY IN THE MORNING AND EVENING NEEDED FOR PAIN active Not Available [...] MOUTH EVERY MORNING FOR VITAMIN DEFICIAN CY 07/13 completed Not Available Not Available Not Available furosemid e 20 mg tablet TAKE ONE TABLET BY MOUTH EVERY DAY NEEDED FOR FLUID RETENTIO N 12/23 completed Not Available Not Available Not Available ergocalci ferol (vitamin D2) 1,250 mcg (50,000 unit) capsule TAKE ONE CAPSULE BY MOUTH EVERY WEEK FOR VITAMIN DEFICIAN CY 07/13 completed Not Available Not Available Not Available polyethyl thierno glycol 3350 17 gram/dose [...] completed Not Available Not Available Not Available albuterol sulfate HFA 90 mcg/actua tion aerosol inhaler INHALE TWO PUFFS BY MOUTH EVERY 6 HOURS NEEDED FOR BREATHIN G active Not Available Not Available No t Available colchicin e 0.6 mg tablet 03/13 completed Not Available Not Available Not Available doxycycli ne hyclate 100 mg tablet TAKE ONE TABLET BY MOUTH TWICE DAILY EVERY MORNING & EVENING FOR one WEEK FOR BRONCHIE CTASIS 07/13 completed Not Available Not Available Not Available naproxen 500 mg tablet TAKE ONE TABLET BY MOUTH TWICE DAILY 12/23 completed Not Available Not Available Not Available amoxicill in 875 mg-potass ium clavulana te 125 mg tablet TAKE ONE TABLET BY MOUTH TWICE DAILY EVERY MORNING & EVENING FOR 10 DAYS FOR INFECTIO N 05/26 completed Not Available Not Available Not Available Dulcolax (bisacody l) 5 mg tablet,de layed release Take 4 tablets by oral route as directed . 12/23 completed Not Available Not Available Not Available losartan 100 mg-hydroc hlorothia zide 12.5 mg tablet TAKE 1 TABLET BY MOUTH ONCE DAILY FOR BLOOD PRESSURE AND FLUID RETENTIO N active Not Available Not Available No t Available Xarelto 20 mg tablet TAKE 1 TABLET BY MOUTH EVERY MORNING WITH FOOD TO PREVENT STROKE active Not Available Not Available No t Available lidocaine 5 % topical ointment APPLY TO AFFECTED AREA(S) BY TOPICAL ROUTE 1-4 TIMES DAILY NEEDED 12/23 completed Not Available Not Available Not Available umeclidin ium 62.5 mcg-vilan terol 25 mcg/actua tion powdr for inhalatio n INHALE ONE PUFF BY MOUTH EVERY MORNING FOR BREATHIN G active Not Available Not Available No t Available Airsupra 90 mcg-80 mcg/actua tion HFA aerosol inhaler INHALE TWO PUFFS BY MOUTH NEEDED UP TO SIX TIMES DAILY FOR BREATHIN G active Not Available Not Available No t Available Vitals Date Recorded Body height Body mass index (BMI) Body weight Heart rate Oxygen saturation Oxygen saturation in Arterial blood by Pulse oximetry Systolic And Diastolic Provider Name and Address Organization Details Last Updated DateTime 5 180.34 cm 26.5 kg/m2 98289.5 5 g 96 /min 96 % 96 % 135/94 mm[Hg] Massiel Lopez MA [facility] 5 17:10:07 Date Recorded Body height Body mass index (BMI) Body weight Body temperature Heart rate Oxygen saturation Oxygen saturation in Arterial blood by Pulse oximetry Respiratory rate Pain severity - 0-10 verbal numeric rating [Score] - Reported Systolic And Diastolic Provider Name and Address Organization Details Last Updated DateTime 5 180.34 cm 26.2 kg/m2 06574.3 7 g 97 [degF] 84 /min 96 % 96 % 18 /min 3 104/74 mm[Hg] Sandhya Ramesh LPN [facility] 5 14:43:31 Date Recorded Body height Body mass index (BMI) Body weight Oxygen saturation Oxygen saturation in Arterial blood by Pulse oximetry Heart rate Systolic And Diastolic Provider Name and Address Organization Details Last Updated DateTime 4 180.34 cm 26.9 kg/m2 70714.3 3 g 98 % 98 % 96 /min 168/98 mm[Hg] Linda Ford MA [facility] 4 16:39:48 Date Recorded Body height Body mass index (BMI) Body weight Oxygen saturation Oxygen saturation in Arterial blood by Pulse oximetry Heart rate Systolic And Diastolic Provider Name and Address Organization Details Last Updated DateTime 4 180.34 cm 25.7 kg/m2 95079.2 8 g 95 % 95 % 88 /min 130/81 mm[Hg] Jono Rosas MA [facility] 4 17:10:48 Date Recorded Body height Body mass index (BMI) Body weight Heart rate Oxygen saturation Oxygen saturation in Arterial blood by Pulse oximetry Systolic And Diastolic Provider Name and Address Organization Details Last Updated DateTime 5 180.34 cm 25.7 kg/m2 80449 g 88 /min 97 % 97 % 114/70 mm[Hg] Reshma Cameron MA [facility] 5 15:47:57 Social History Question Answer Notes LastModified by Organizat ion Details LastModified Time Tobacco Smoking Status Never Smoker Nitin Porter MA null, [place] - [facility] 05/15/2021 14:11:19 Do You Have An Advance [...] Do You Have A Medical Power Of Alarm Installer? Yes Information not available 02/13/2023 What Was The Date Of Your Most Recent Tobacco Screening? 07/13/2025 Information not available 07/13/2025 Has Tobacco Cessation Counseling Been Provided? Yes Information not available 07/13/2025 On What Date Was Tobacco Cessation Counseling Provided? 07/13/2025 Information not available 07/13/2025 Sex: Unknown Functional Status Question Answer Note LastModified by Organizat ion Details LastModified Time Do you use any illicit or recreational drugs? No Information not available 07/13/2025 Do you or have you ever used [...] Not available 0 05/15/2021 14:08:46 Brother Malignant neoplasm of colon [email or web address] Not available 04/23 14:09:07 Brother Malignant neoplasm of prostate [email or web address] Not available 04/23 14:09:50 Father Heart disease [email or web address] Not available 04/23 14:09:19 Father Hypertensive disorder [email or web address] Not available 04/23 14:09:30 Mother Malignant neoplasm of lung suspected [email or web address] Not available 04/23 14:10:17 Medical History No medical history recorded. Immunizations Vaccine Type Date Status Note Provider Nam e and Address Organization Details Recorded Time COVID-19, mRNA, LNP-S, PF, 100 mcg/0.5mL dose or 50 mcg/0.25mL dose 03/27/2021 completed CHERELLE [place]amesh[place] [facility] 05/06/2023 12:41:22 COVID-19, mRNA, LNP-S, PF, 100 mcg/0.5mL dose or 50 mcg/0.25mL dose 04/24/2021 completed CHERELLE Ramesh[place] [facility] 05/06/2023 12:41:22 Influenza, split virus, quadrivalent, PF 07/02/2017 completed CHERELLE Ramesh[place] - [facility] 05/06/2023 12:41:22 Past Encounters Encounter ID Performer Location Encounter Start Date Encounter Closed Date Diagnosis/Indication Diagnosis SNOMED-CT Code Diagnosis ICD10 Code Diagnosis IMO Codes Diagnosis Note [id number] Meche Kinney MD [facility] (Adult Med) [address] [place] [address] 05/15/2021 13:44:32 05/17/2021 11:07:24 Gouty arthritis of toe 828747341 M10.079 Discussed with patient, avoid red meat, sea food, on low purine diet., avoid alcohol or consume less amount. Adult [facility] th examination [id number] Z00.00 Avoid cigarettes smoking, Benign pro static hyperplasia [id number] N40.0 PSA screening. Screening for malignant neoplasm of colon 974150097 Z12.11 Discussed with patient, he agreed for the screening. [id number] Kolton Nevarez MD [facility] [address] [place] [address] 05/24/2021 10:01:10 05/25/2021 12:50:30 Screening for malignant neoplasm of colon 982003278 Z12.11 [id number] MD Marietta Chávez (Adult Med) [address] [place] [address] 06/05/2021 12:07:32 06/06/2021 08:53:38 Bilateral heel pain [id number] 4278898 M79.671 M79.672 Wants some pills for the relief of pain for the mean time. [id number] MD Marietta Chávez (Adult Med) [address] [place] [address] 10/10/2021 15:58:54 10/12/2021 10:16:16 Persistent cough 612064384 R05.3 Will try liquid cough syrup, he agreed. Headache 97676276 R51.9 Will try baclofen for the mean time. [id number] MD Marietta Chávez (Adult Med) [address] [place] [address] 04/05/2022 11:25:12 04/09/2022 07:39:38 Acute low back pain 296733086 M54.50 Discussed with patient, will order following the tests and med. Light duty for 2 months. [id number] MD Marietta Chávez (Adult Med) [address] [place] [address] 05/29/2022 14:53:52 05/30/2022 09:36:37 Pain of right shoulder joint [id number] 8926152 M25.511 Tizanidine made him oozy, he declines PT , but would like to resume tylenol #3 as needed basis. [id number] MD Marietta Chávez (Adult Med) [address] [place] [address] 07/03/2022 09:45:30 07/04/2022 11:18:32 Pain of right shoulder joint 1962030194 7589826 M25.511 Tizanidine made him oozy, he declines PT , it painful to exercise, but would like to resume tylenol #3 as needed basis. will refer to orthopedic . Chronic low back pain 27 2137580 M54.50 Tried PT but did not help to relieve the pain, since March 2022. Ran out the tylenol #3 for pain. Hard to bend to the right side, pain radiating to the cheek and right leg, indicates right sciatica. [id number] Meche Kinney MD [facility] (Adult Med) [address] [place] [address] 12/10/2022 17:05:55 12/13/2022 17:34:47 Overweight 567582773 E66.3 PMI is 26.9. diet, exercise and keep the weight down. Chronic low back pain 27 4834139 M54.50 Tried PT but did not help to relieve the pain, since March 2022. Ran out the tylenol #3 for pain. Hard to bend to the right side, pain radiating to the cheek and right leg, indicates right sciatica. Essential hypertension 40055714 I10 BP 120/70, well controlled , will refill med. Erectile dysfunction 860 389630 F52.21 Discussed with patient , that gabapentin and tizanidine mess his life he said. Diverticul itis of colon 688510229 K57.32 Avoid rough or nut meal. may try ABS as prescribed . or ER. He agreed. [id number] Meche Kinney MD [facility] (Adult Med) [address] [place] [address] 02/11/2023 12:29:49 02/12/2023 14:26:11 Overweight 855713033 E66.3 PMI is 26.9. diet, exercise and keep the weight down. Diverticul itis of colon 215916333 K57.32 Avoid rough or nut meal. may try ABS as prescribed . or ER. He agreed. Still taking ABS. Chronic low back pain 27 9049076 M54.50 Tried PT but did not help to relieve the pain, since March 2022. Ran out the tylenol #3 for pain. Hard to bend to the right side, pain radiating to the cheek and right leg, indicates right sciatica. Elevated blood-pressure reading without diagnosis of hypertension 236526747 R03.0 Since he took med for hypertens ion he felt almost passing out. . Will just monitoring blood pressure for the mean time. HIV screen ing declined [id number] 79352 Z53.20 He declined 02-11-23. [id number] [facility] [address] [place] [address] 02/13/2023 11:13:15 02/13/2023 13:34:45 Abscess of sigmoid colon co-occurrent and due to diverticulitis 0237934197 644326 K57.20 patient with history of diverticul itis, [...] to retrieve CT scan disks for review. [id number] Kolton Nevarez MD [facility] ts [address] [place] [address] 03/13/2023 10:51:07 03/17/2023 10:48:36 Complicated diverticular disease of large intestine 992054886 K57.90 Patient with multiple episodes of complicate [...] OR as soon as is convenient . [id number] MD Marietta Chávez (Adult Med) [address] [place] [address] 05/06/2023 12:38:03 05/07/2023 16:10:52 Chronic low back pain 613688247 M54.50 Tried PT but did not help [...] will have urine drug screening. Essential hypertension 69317385 I10 BP 120/70, well controlled , will refill med. Blood pressure monitor provided to him today. Pain in ri ght lower limb 189952876 M79.604 Discussed with patient. will do venous doppler to R/O acute DVT, empirical ABO and diuretic, if positive DVY will treat with anticoagul ant. for 3 months. HIV screen ing declined [id number] 37726 Z53.20 He declined 02-11-23. Also today . [id number] MD Marietta Chávez (Adult Med) [address] [place] [address] 05/13/2023 14:22:18 05/16/2023 10:33:25 Pulmonary embolism 14844877 I26.99 oN XARELTO, [place] A HEMATOLOGI ST. Acute deep venous thrombosis of right lower extremity 4404419474 75747 I82.401 On xarelto, will see a hematologi st. [id number] MD Marietta Chávez (Adult Med) [address] [place] [address] 08/07/2023 15:09:43 08/12/2023 14:18:46 Chronic low back pain 896224045 M54.50 Tried PT but did not help [...] will change to tramadol instead. He agreed. [id number] MD Marietta Chávez (Adult Med) [address] [place] [address] 11/06/2023 15:30:44 11/10/2023 16:52:16 Chronic low back pain 541320052 M54.50 Tried PT but did not help [...] Deep venou s thrombosis of lower extremity 088530406 I82.409 On xarelto 10 mg /day. [id number] MD Marietta Kemp (Adult Med) [address] [place] [address] 12/24/2023 15:40:48 12/26/2023 09:53:24 History of deep vein thrombosis 364366531 Z86.718 Cont xarelto Essential hypertension 81518914 I10 Cont current rx Chronic low back pain 27 0799546 M54.50 Screening for malignant neoplasm of prostate 725353874 Z12.5 Long-term current use of anticoagulant 629011547 Z79.01 Diverticular disease 397 355438 K57.90 [id number] Tien Valerio MD [facility] (Adult Med) [address] [place] [address] 02/04/2024 15:49:48 02/05/2024 08:27:02 Essential hypertension 86489488 I10 Increase to 100 mg/d Diverticular disease 397 805337 K57.90 History of pulmonary embolus 728190397 Z86.711 Hyperglycemia 67737718 R 73.9 Macrocytosis 165540409 D 75.89 Continue folic acid supplement [id number] MD Marietta [facility]Kmp (Adult Med) [address] [place] [address] 03/30/2024 16:21:50 04/01/2024 14:39:47 Essential hypertension 23966981 I10 Add diuretic to losartan Diverticular disease 397 525521 K57.90 History of pulmonary embolus 972671401 Z86.711 Hyperglycemia 99654543 R 73.9 Macrocytosis 141853762 D 75.89 Continue folic acid supplement [id number] MD Marietta Kemp (Adult Med) [address] [place] [address] 06/30/2024 16:35:54 07/05/2024 15:00:41 Overweight 137061632 E66.3 History of deep vein thrombosis 158362360 Z86.718 Cont xarelto History of pulmonary embolus 266435876 Z86.711 Long-term current use of anticoagulant 558002970 Z79.01 Hyperglycemia 91342860 R 73.9 Watch carbohydra te intake Low back pain 635009112 M54.50 Vitamin D deficiency 347 75964 E55.9 Diverticular disease 397 576316 K57.90 Essential hypertension 91539147 I10 Add diuretic to losartan [id number] MD Marietta Kemp (Adult Med) [address] [place] [address] 01/10/2025 16:57:43 01/17/2025 12:56:08 Diverticulitis 715059636 K57.92 04452 Essential hypertension 68713974 I10 Cont current meds. Labs on return OV Folic acid deficiency 19 0716081 E53.8 Hyperglycemia 27990217 R 73.9 Watch carbohydra te intake Long-term current use of anticoagulant 485754600 Z79.01 [id number] Kolton Nevarez MD [facility] [address] [place] [address] 01/25/2025 14:22:27 01/26/2025 07:43:20 Diverticulitis 132739063 K57.92 [id number] Patient with continued diverticul ar disease, including [...] that he wishes to be [facility] to [facility]. [id number] MD Marietta Queen (Adult Med) [address] [place] [address] 07/13/2025 15:35:40 07/14/2025 13:00:36 Chronic low back pain 667299848 M54.50 Education Essential hypertension 23487520 I10 Controlled Overweight in adulthood with body mass index of 25 or more but less than 30 325796943 Z68.25 [id number] Noted. [facility] Concerns Section Related Observation LastModified by Organization Detai ls LastModified Time None Recorded Concern Status LastModified by Organization Details LastModified Time None Recorded Advance Directives Directive N: Payers Insurance Date Sequence Insurance Name Policy Number Policy Harp Covered Member ID Harp Member ID Guarantor Name 07/13/2025 1 [facility] ON OR AFTER 03/22/21 (MEDICAID REPLACEMENT - HMO) Caseyevelia Kearns [id number] Caseyevelia Kearns 07/13/2025 1 [facility] ON OR AFTER 03/22/21 (MEDICAID REPLACEMENT - HMO) Casey Urmila [id number] Casey Urmila Notes Date Note Type Note Provider Name and Address Organization Details Recorded Time 03/30/2024 text/html Here for blood pressure f/u. Some times forgets to take second BP pill. Tien Valerio MD Attn: [address] [place], [place], [address] [place] [address], [facility] 03/30/2024 17:21:30 06/30/2024 text/html Here for BP f/u. pt requests rx for tizanidine Tien Valerio MD Attn: [address] [place], [address], [facility] 06/30/2024 17:44:30 01/10/2025 text/html Here for routine f/u. Had a flare of diverticular disease one week ago. He has had abdominal pain and initially diarrhea. Now has multiple non-formed stools Tien Valerio MD Attn: [address] [place], [address], [facility] 01/10/2025 17:39:37 01/25/2025 text/html Patient returns with [...] him out of work. Kolton Nevarez MD [address] [place], [address], [facility] 01/25/2025 15:11:35 07/13/2025 text/html Hypertension F/UReported by PatientHPIFor associated symptoms, patient reportsno dizziness,no lightheadedness,no chest pain,no shortness of breath,no palpitations,no edema, andno calf pain with exertion. For medications, patient reportstaking medications as directed. Patient doing well. He/She is tolerating medication(s). No complaint. No chest pain, sob, or acute symptoms. Patient is compliant with treatment plan. Pt needs refill Abimael Rubio MD Attn: [address] [place], [address], [facility] 07/13/2025 23:47:36
--- NOTE | 2025-08-01 10:17 | ECG_ITS ---
Test Date: 2025-08-01 10:33:53 Measurements Intervals Paden Rate: 92 P: 38 IL: 140 QRS: 29 QRSD: 114 T: 35 QT: 336 QTc: 417 Interpretive Statements SINUS RHYTHM WITH SINUS ARRHYTHMIA INCOMPLETE LEFT BUNDLE-BRANCH BLOCK WARNING: DATA QUALITY MAY AFFECT INTERPRETATION Compared to ECG 03/17/2025 10:27:40 Electronically Signed On 08-02-2025 10:54:58 [employer] by Milton Jennings M.D.
[2025-08-01 10:48] LABS: Hematocrit 53.3 % (42.0-52.0); Hemoglobin 18.0 g/dL (14.0-18.0); Immature Granulocyte Percent A 0.4 % (0-0.5); Lymphocytes Absolute Auto 1.42 K/mm3 (0.9-3.2); Mean Corpuscular HGB Conc 33.8 g/dl (32-36); Mean Corpuscular Hemoglobin 32.4 pg (26-34); Mean Corpuscular Volume 96.0 fl (80-100); Nucleated Red Blood Cells Absolute Auto 0.000 K/mm3 (0.0-0.012); Nucleated Red Blood Cells Perc 0.0 % (0.0-0.2); Platelet Count Result 233 k/mm3 (150-375); Red Blood Count 5.55 M/mm3 (4.6-6.20); White Blood Count 10.0 K/mm3 (4.5-10.0)
[2025-08-01 11:06] LABS: Anion Gap 11 mmol/L (4-12); Blood Urea Nitrogen 10 mg/dL (9-20); Calcium 9.0 mg/dL (8.4-10.2); Carbon Dioxide 23 mmol/L (22-30); Chloride 103 mmol/L (98-107); Estimated Glomerular Filt Rate > 60; Glucose 111 mg/dL (65-110); Potassium 4.4 mmol/L (3.4-5.0); Sodium 137 mmol/L (137-145)
== END 2025-08-01 09:37 | disposition home or self-care (01) ==
LOC: ANHSURGERY 09:37
PROVIDERS: Visit Provider Surgery
DX: Z01.818 Encounter for other preprocedural examination (principal); K57.32 Diverticulitis of large intestine without perforation or abscess without bleeding
CPT/HCPCS: 36415; 71046; 80048; 85025; 86850; 86900; 86901; 93005

== ENCOUNTER 2025-08-10 08:53 | Inpatient (IN) | payer OTHER, SELFPAY ==
--- NOTE | 2025-08-01 09:39 | PC.NURSE ---
[facility] has started construction of its new state of the art ER which will open Spring 2026. With this, we anticipate parking may be a challenge for some our surgical patients and families. Parking spaces are limited but are available for all Surgical, obstetrics, and ER patients sharing this lot. If you arrive and find you are having a hard time finding a parking space, please note that we understand the challenges, please drive around the hospital and park near Hospital Entrance 1. When you enter this entrance, you can ask a volunteer to direct or take you back to the surgical waiting area to check in. We appreciate everyone?s understanding of these expected challenges while we build for your future. Report to the Outpatient Waiting Room, entrance under the green pavilion located off [address], at time _6 AM on date __08/10/25 . Planned Procedure Time: _7:30 AM .? Time changes happen often and if your time is changed the preop area will call you the afternoon before. - You and your visitor will be asked to self-screen and do not enter if you have any COVID symptoms. Please call surgeon if you need to reschedule. - A mask is optional within the hospital at this time. Patients may have clear liquids (water, carbonated beverages, clear teas, apple juice) until 3 hours prior to surgery( 4:30 AM) with a maximum of 20 ounces. - No food from midnight until time of surgery and no smoking, or chewing tobacco (or any form of nicotine). No chewing gum, candy or mints. - Take only the following medications with a SIP of water on the morning of surgery: _ANORO__INHALER DO NOT STOP ANY OF YOUR OTHER PRESCRIPTION MEDICATIONS PRIOR TO SURGERY EXCEPT THE FOLLOWING Hold all vitamins and supplements for 3 days per anesthesiologist. Medications to discontinue per physician HOLD XARELTO 3 DAYS PRE OP PER DR ALBERTO Date to take last dose____08/06/25 [address]UN[address]LE PACK PER DR ALBERTO BOWEL PREP PER DR ALBERTO CHLORHEXIDINE CLEANSER SHOWER DAY BEFORE AND MORNING OF SURGERY Please no make-up, nail bulgarian, hairspray, perfume, deodorant, or body powder the day of surgery.? No jewelry (including any body piercings) or valuables the day of surgery, leave them at home.? Please take a shower or bath the night before, or the morning of, surgery with an antibacterial soap.? Wear comfortable, loose fitting clothing.? Children are encouraged to wear pajamas. - Jewelry must be removed prior to entering the operating room.? Rings and piercings that are not removed may be cut off. - The hospital will not accept responsibility for valuables.? - Please leave all valuables, including medications, at home the day of surgery. If you are going home after surgery, a licensed front end loader driver must drive you home.? - NO public transportation without another adult if you receive anesthesia. - We recommend that an adult stay with you for 24 hours following discharge. - We also recommend that you do not drive, make important decision, drink alcoholic beverages, or take any drugs that were not prescribed by your health care provider for at least 24 hours after your discharge time. For Pediatric surgeries, we recommend two adults accompany the child home. Follow any additional instructions given to you from your surgeon. VERBAL AND WRITTEN instructions given to __PATIENT and asked if any additional questions and then verbalized understanding. Patient advised to call surgeon office or pre surgery nurse liaison [phone] if any additional questions.
[2025-08-01 10:40] VITALS: BP 135/91; PULSE 100; RESP 18; TEMP 37.2; O2SAT 100; BMI 25.9
--- NOTE | 2025-08-09 14:57 | PM.IMHP ---
H&P: HPI History of Present Illness Date/Time: 08/09/25 14:57 Chief Complaint: Diverticulitis Narrative: The patient is a 60-year-old man who was admitted to the hospital on February 01 of this year with an episode of acute diverticulitis. He recovered after bowel rest and IV antibiotics and was able to be discharged after a 4 day admission. This is 1 of multiple admissions he has had, others have been at an outside hospital, since 2017. He reports he has had a colonoscopy which was negative by Dr. Nevarez at an outside facility. While in the hospital in January, the patient expressed a desire to proceed with sigmoidectomy to avoid further episodes of diverticulitis. We discussed this at length during the hospitalization and in the office. He was scheduled for sigmoidectomy March 23, 2025. He had an abnormal chest x-ray and bronchiectasis on a chest CT scan. Patient also has a history of right leg DVT and pulmonary embolism. He chronically takes Xarelto 20 mg daily for anticoagulation. His surgery in March was canceled and he saw Dr. Disla, tele grout sewer line repairer regarding his abnormal chest imaging. She performed an extensive workup. This included a 6 minute walk which he passed easily. She was able to find old CT scans which showed this bronchi ectatic change had been there for many years. She feels that he is satisfactory to proceed with surgery. Urology has been consulted. Patient has a history of a urethral stricture and difficulty passing a Anand catheter. Urology is also requested to place bilateral ureteral stents for assistance in identifying the ureters. Patient is now taken to surgery on 08/10/2025 for hand access laparoscopic sigmoidectomy with anastomosis. Review of Systems Review of Systems: All systems reviewed & are unremarkable except as noted in HPI and below (HPI) [facility] Past Medical History Medical History Bronchiectasis History of pulmonary embolism History of pulmonary embolus (PE) History of DVT (deep vein thrombosis) Hypertension Surgical History Surgical History Hx of tonsillectomy Social History Social History Smoking status: Never smoker Alcohol intake: current Drinks per week: 14 Alcohol use details: BEER Substance use: never Substance use type: does not use Do You Feel Safe in your Home?: Yes Lack of Transportation: No Lack of Food: Never True Current Housing: I Have Housing Concerned About Future Housing: No Difficulty Paying Gas/Electric Bills: No Difficulty Paying for Meds: No Currently Unemployed: No Education: High School Diploma/GED Difficulty w/ Childcare or Family Care: No Living arrangements: with family Additional living arrangements comments: Spiritual care concerns: No Meds Home Medications and Allergies Home Medications ?Medication ?Instructions ?Recorded ?Confirmed ?Type losartan 100 1 tablet PO DAILY 02/01/25 08/01/25 History mg-hydrochlorothiazide 12.5 mg tablet tramadol 50 mg tablet 50 mg PO BID PRN pain 02/01/25 08/01/25 History umeclidinium 62.5 mcg-vilanterol 1 inh inhalation Q24H 04/07/25 08/01/25 Rx 25 mcg/actuation powdr for bronchiectasis 3 months #180 ea inhalation (Anoro Ellipta) albuterol sulfate 90 mcg/actuation 2 inh inhalation Q6H PRN shortness 04/26/25 08/01/25 Rx aerosol inhaler (Ventolin HFA) of breath 1 month #8.5 grams ciprofloxacin HCl 500 mg tablet 500 mg PO .COMPLEX #1 tablet 08/01/25 Rx metronidazole 500 mg tablet 500 mg PO .COMPLEX #3 tabs 08/01/25 Rx rivaroxaban 20 mg tablet (Xarelto) 20 mg PO DAILY 08/01/25 08/01/25 History Allergies Allergy/AdvReac Type Severity Reaction Status Date / Time No Known Allergies Allergy Verified 08/01/25 09:43 Exam Const: General: comfortable, no acute distress, alert and awake HENMT: Head: normocephalic and atraumatic Mouth: Yes Normal oral and palatal mucosa present Eyes: Conjunctivae: conjunctivae normal Pupils: Equal, round and reactive pupils present EOM: EOMs intact bilaterally Neck: Neck: normal visual inspection, no lymphadenopathy and nontender Resp: Effort & Inspection: normal respiratory effort Auscultation: clear to auscultation bilaterally Cardio: Rate: regular rate Rhythm: regular rhythm Heart sounds: no gallops, no murmurs and no rubs GI: Inspection: non-distended, scaphoid, scar (Right lower quadrant appendectomy scar) and no visible herniation GI Palp: Yes Soft to palpation, No Tenderness to palpation present (GI), No Hepatomegaly present, No Splenomegaly present, No Hernia present and No Palpable mass present Auscultation: normal bowel sounds Skin: Lesions: no lesions Rashes: no rashes Neuro: General: no focal motor deficits and CN's II-XI intact bilaterally Cranial nerves: Yes Equal, round and reactive pupils present, Yes Bilaterally intact EOM present, Yes facial symmetry and Yes Midline tongue present Speech: normal speech Motor exam (neuro): 5/5 motor strength present throughout and Motor abnormalities not present Extrem: General: no clubbing, cyanosis or edema and edema Psych: Affect: normal affect Thought process: Normal thought process present Insight: Good insight present (Psych) Assessment and Plan Assessment and plan (1) Sigmoid diverticulitis: Code(s): K57.32 - Diverticulitis of large intestine without perforation or abscess without bleeding Status: Chronic Assessment and Plan: After thorough discussion, patient is taken to surgery on 08/10/2025 for hand access laparoscopic sigmoidectomy. The procedure, risks, benefits, and alternatives have been discussed. Possibilities of infection including anastomotic leakage have been discussed. The usual length of the surgery and length of time in the hospital and overall recovery have been discussed. All questions were answered. He understands and agrees to go ahead. (2) Chronic anticoagulation: Code(s): Z79.01 - custodial (current) use of anticoagulants Status: Chronic Assessment and Plan: Xarelto has been held for surgery (3) History of pulmonary embolism: Code(s): Z86.711 - Personal history of pulmonary embolism Status: Chronic (4) Hx of urethral stricture: Code(s): Z87.448 - Personal history of other diseases of urinary system Status: Chronic Assessment and Plan: Urology has been consulted for placement of ureteral stents as well as placement of Anand catheter due to his urethral stricture. (5) Hypertension: Qualifiers: Hypertension type: primary hypertension Qualified Code(s): I10 - Essential (primary) hypertension Code(s): I10 - Essential (primary) hypertension Status: Chronic (6) Bronchiectasis: Qualifiers: Bronchiectasis type: uncomplicated Qualified Code(s): J47.9 - Bronchiectasis, uncomplicated Code(s): J47.9 - Bronchiectasis, uncomplicated Status: Chronic Assessment and Plan: Chronic and stable per preoperative pulmonary evaluation.
[2025-08-10] VITALS (14 sets, daily range): BP systolic 107–133; BP diastolic 67–94; PULSE 71–94; RESP 12–18; TEMP 35.9–36.6; O2SAT 93–98; BMI 25.4
--- NOTE | ~2025-08-10 | XR_ITS ---
EXAMINATION: XR chest ET placement COMPARISON: No comparisons available. HISTORY: Ett placement FINDINGS: Scattered small infiltrates. No pneumothorax. Moderate cardiomegaly. Mediastinal and hilar contours are within normal limits. Bony thorax no acute abnormality. Miscellaneous: ET tube 3 cm above the jayda, nasogastric tube in the stomach, right PICC line in the SVC. Impression: Intubation as above. Early bilateral pneumonia suspected. Reviewed, dictated and finalized at location P. CAR LOADER Impression: Intubation as above. Early bilateral pneumonia suspected.
--- NOTE | ~2025-08-10 | XR_ITS ---
EXAMINATION: XR abdomen/kub 1V, 08/14/2025 9:00 SAP BI DEVELOPER HISTORY: follow up post op ileus COMPARISON: No comparisons available. Technique: 3 view. Findings: There are dilated loops of small bowel the largest 5 cm with diminished throughout the large bowel. No free air. No abnormal calcifications No acute osseous abnormality. Nasogastric tube terminates within the stomach. Impression: 1. Small bowel obstruction. The findings are progressed compared to the previous study with increased small bowel dilatation Reviewed, dictated and finalized at location P. BI DEVELOPER Impression: 1. Small bowel obstruction. The findings are progressed compared to the previou s study with increased small bowel dilatation
--- NOTE | ~2025-08-10 | CT_ITS ---
CT abdomen pelvis w con Clinical History: SBO s/p Sigmoidectomy 08/10 . Comparison: 08/12/2021 Technique: Axial images lung bases to symphysis pubis IV contrast information in Epic Coronal, sagittal reformats CT images acquired with automatic exposure control for dose reduction DLP: 807 mGy-cm Findings: Lung bases: Small left pleural effusion. Significant bibasilar atelectasis and/or consolidations. Visualized heart and pericardium: Coronary artery calcification. Liver: Enlarged. Steatosis. Gallbladder: Contracted. Spleen: Unremarkable. Pancreas: Unremarkable. Adrenal glands: Unremarkable. Kidneys: Right kidney- No hydronephrosis. No renal stones. Left kidney- No hydronephrosis. No renal stones. Distal esophagus/stomach: Unremarkable. Small bowel loops: Normal caliber and wall thickness. Colon: Distal wall thickening. Appendix not seen. Rectal anastomosis Nodes: No enlarged nodes. Peritoneum: Scattered ascites, areas of peritoneal enhancement. Free air. Urinary bladder: Small intraluminal gas. Prostate: Unremarkable. Bones: No acute bony abnormality. Soft tissues: Unremarkable. Aorta: No aneurysm or dissection. Atherosclerotic disease. IVC: Unremarkable. Main portal vein/SMV/splenic vein: Patent. IMPRESSION: 1. Ileus and/or developing small bowel obstruction. 2. Free intraperitoneal air favoring recent postoperative change. 3. Peritonitis, with scattered ascites and interloop fluid. 4. Worrisome for cystitis, unless recent catheter manipulation. 5. Significant bibasilar atelectasis and/or airspace disease, with small left effusion. Reviewed, dictated and finalized at location R. ICAL LABORATORY MEDICAL DIRECTOR
--- NOTE | ~2025-08-10 | CT_ITS ---
EXAMINATION: CTA chest, 08/13/2025 15:50 PER DIEM INTERPRETER HISTORY: L shoulder and chest pain COMPARISON: No comparisons available. TECHNIQUE: CTA examination is obtained with contrast CTA examination technique is performed with arterial phase of contrast-enhancement. 3-D reconstruction with thin MIP axial and MPR coronal imaging is provided Isovue 300, 92cc injected IV. One or more of the following dose reduction techniques were used: automated exposure control, adjustment of the mA and/or kV according to patient size, use of iterative reconstruction technique. FINDINGS: No significant coronary calcification is present ([id number]) LUNGS: There are small simple appearing left pleural effusion with trace right pleural effusion with basilar infiltrates noted. The contrast bolus is adequate, there is no gross pulmonary embolism identified. No tracheomalacia. No bronchiectasis. Minimal emphysematous changes. No significant pulmonary fibrotic changes are identified. HEART AND PERICARDIUM: Within normal limits. AORTA: Normal caliber aorta.. PULMONARY ARTERIES: No pulmonary embolism ADENOPATHY/MEDIASTINUM: None. LIMITED VIEWS OF THE ABDOMEN: Nasogastric tube terminates within the stomach. There is intra-abdominal free air identified in the visualized abdomen. OSSEOUS STRUCTURES: No sclerotic or lytic lesions. No acute fractures are identified. OVERLYING SOFT TISSUES: Unremarkable. THYROID: There are subcentimeter bilateral thyroid nodules. IMPRESSION: 1. Negative for pulmonary embolism. Bilateral probable pneumonia. 2. Intra-abdominal free air possibly postoperative in nature relatively unchanged compared to the previous exam Reviewed, dictated and finalized at location P. DIEM INTERPRETER IMPRESSION: 1. Negative for pulmonary embolism. Bilateral probable pneumonia. 2. Intra-abdominal free air possibly postoperative in nature relatively unchang ed compared to the previous exam
--- NOTE | ~2025-08-10 | XR_ITS ---
XR abdomen/kub 1V 08/17/2025 05:30 Indication: Follow-up ileus Procedure: KUB Comparison: Comparison to multiple prior studies sequentially, with oldest reviewed study dated 08/14/2025. Findings: No significant change to dilated small bowel predominantly located in the central abdomen. There is gas in the right colon. There is patchy left basilar airspace disease, suspicious for pneumonia. Interval placement of pigtail catheter in the pelvis. Impression: 1: Persistent dilated small bowel loops without significant change, partial small bowel obstruction versus ileus. 2: Patchy left basilar airspace disease which may represent atelectasis or pneumonia. Reviewed, dictated and finalized at location O. MACHINE OPERATOR Impression: 1: Persistent dilated small bowel loops without significant change, partial sma ll bowel obstruction versus ileus. 2: Patchy left basilar airspace disease which may represent atelectasis or pneu monia.
--- NOTE | ~2025-08-10 | XR_ITS ---
EXAMINATION: XR abdomen/kub 1V, 08/18/2025 5:15 ASSOCIATE DEAN OF WOMEN HISTORY: f/u ileus COMPARISON: No comparisons available. Technique: 3 view. Findings: There are dilated loops of small bowel the largest 4 cm with diminished air throughout the large bowel. No free air. No abnormal calcifications No acute osseous abnormality. Catheter noted in the bladder. There is a drain terminating in the left lower quadrant with sequelae of previous surgery. Nasogastric tube terminates in the distal stomach. Impression: 1. Ileus versus early obstruction. The findings appear relatively unchanged Reviewed, dictated and finalized at location P. CIATE DEAN OF WOMEN Impression: 1. Ileus versus early obstruction. The findings appear relatively unchanged
--- NOTE | ~2025-08-10 | XR_ITS ---
EXAMINATION: XR chest 1V portable COMPARISON: No comparisons available. HISTORY: ETT FINDINGS: Mild pulmonary venous congestion. Infiltrates noted previously unchanged No pneumothorax. Mild cardiomegaly. Mediastinal and hilar contours are within normal limits. Bony thorax no acute abnormality. Miscellaneous: ET tube 3 cm above the jayda, nasogastric tube in the stomach, right PICC line in the SVC. Impression: No significant change. Reviewed, dictated and finalized at location P. HOUSE STOCKER Impression: No significant change.
--- NOTE | ~2025-08-10 | XR_ITS ---
Examination: XR abdomen/kub 1V Clinical History: sbo Comparison: CT 1 day prior Technique: 2 views portable AP supine Findings/impression: 1. NG tube within gastric fundus. 2. Persistent small bowel obstruction. Reviewed, dictated and finalized at location R. RATORY HELPER
--- NOTE | ~2025-08-10 | XR_ITS ---
XR chest 1V portable 08/19/2025 05:40 Indication: Respiratory failure Procedure: AP portable chest Comparison: Comparison to multiple prior studies sequentially, with oldest reviewed study dated 04/15/2025. Findings: Central line tip in the SVC near the cavoatrial junction. NG tube in the stomach. Endotracheal tube tip 5.2 cm above the jayda. Bibasilar airspace disease may represent pneumonia and/or atelectasis. Evaluation for pneumothorax limited due to exclusion of the apices. No significant effusion. Impression: 1: Bibasilar airspace disease may represent pneumonia and/or atelectasis. Reviewed, dictated and finalized at location I. SPACE PROJECT ENGINEER Impression: 1: Bibasilar airspace disease may represent pneumonia and/or atelectasis.
--- NOTE | ~2025-08-10 | XR_ITS ---
XR abdomen/kub 1V 08/22/2025 08:44 Indication: Ileus. Small bowel obstruction. Procedure: KUB Comparison: 08/2008/18/2025 Findings: NG tube in the stomach. Drainage catheter present in the pelvis. There is a catheter overlying the pelvis, possibly within the bladder lumen. There is laparotomy staple line. There are dilated small bowel loops throughout the abdomen with small amount of residual gas in the colon Impression: 1: Dilated small bowel with relative decompression of the colon. Differential diagnosis includes postoperative ileus and partial small bowel obstruction. Reviewed, dictated and finalized at location I. NE ENGINEERING TEACHER Impression: 1: Dilated small bowel with relative decompression of the colon. Differential d iagnosis includes postoperative ileus and partial small bowel obstruction.
--- NOTE | ~2025-08-10 | XR_ITS ---
EXAMINATION: AP abdomen: DATE: 08/12/2025. INDICATION: NG tube placement. TECHNIQUE: AP view was obtained after placement of the nasogastric tube. COMPARISON: CT dated 08/12/2025 FINDINGS: Tip of the nasogastric tube is noted within the stomach. Distended loops of small bowel are noted in the abdomen consistent with the findings of mechanical small bowel obstruction noted on CT scan. Free air under the diaphragm consistent with CT findings. IMPRESSION: 1. The tip of the nasogastric tube is within the stomach. Remaining findings are consistent with findings noted on CT scan earlier. Reviewed, dictated and finalized at location T. ERER IMPRESSION: 1. The tip of the nasogastric tube is within the stomach. Remaining findings ar e consistent with findings noted on CT scan earlier.
--- NOTE | ~2025-08-10 | CT_ITS ---
[facility] EXAMINATION: CT abdomen pelvis w con COMPARISON: None HISTORY: increased abd pain, colon resection 08/10/25 TECHNIQUE: Axial images were obtained through the abdomen, pelvis post administration of IV contrast. Oral contrast was also administered. Coronal reconstruction images were obtained from the axial views. CT scan performed using dose optimization techniques including the following automated exposure control; adjustment of mA and/or kV; use of iterative reconstruction technique. Automatic exposure control was used to reduce radiation dose. Permanent radiation dose record is archived to PACS. FINDINGS: CT abdomen: LUNG BASES: The lung bases demonstrate basilar areas of atelectasis with small infiltrates. LIVER: Mild hepatic steatosis. Portal vein is patent. There is no intrahepatic biliary duct dilatation. SPLEEN: Unremarkable. KIDNEYS: Right Kidney: Unremarkable. No calculi. No hydronephrosis. Left Kidney: Unremarkable. No calculi. No hydronephrosis ADRENAL GLANDS: Unremarkable. PANCREAS: Unremarkable. GALLBLADDER/BILIARY: Gallbladder is contracted. STOMACH AND ESOPHAGUS: Visualized stomach and esophagus within normal limits. BOWEL/MESENTERY: Postsurgical changes noted in the sigmoid colon. There are multiple dilated loops of small bowel the largest measuring 4.5 cm with decompressed small bowel loops in the pelvis. ADENOPATHY/RETROPERITONEUM: No lymphadenopathy. AORTA/VASCULATURE: Normal caliber aorta. FREE FLUID OR FREE AIR: There is intra-abdominal free air identified. Small amount of free fluid noted in the pelvis, some of the fluid appears hyperdense..There are rim-enhancing fluid collections noted the largest in the left lower quadrant measuring 6.[address] pelvis: SOLID ORGANS/REPRODUCTIVE: Unremarkable. BLADDER: Within normal limits. OSSEOUS STRUCTURES: No acute osseous abnormality.No suspicious lesions. OVERLYING SOFT TISSUES: There is a catheter within the bladder, the bladder is decompressed. IMPRESSION: 1. Intra-abdominal free air which is possibly postoperative.Viscus perforation is difficult to exclude. There is complex fluid within the pelvis with small amount of hemoperitoneum. Rim-enhancing fluid collections are noted suspicious for early abscess. 2. Small bowel obstruction detailed above Reviewed, dictated and finalized at location P. STANT PROFESSOR OF NURSING IMPRESSION: 1. Intra-abdominal free air which is possibly postoperative.Viscus perforation is difficult to exclude. There is complex fluid within the pelvis with small am ount of hemoperitoneum. Rim-enhancing fluid collections are noted suspicious fo r early abscess. 2. Small bowel obstruction detailed above
--- NOTE | ~2025-08-10 | XR_ITS ---
Examination: XR abdomen obstructive series Clinical History: change in condition Comparison: X-ray abdomen 2 days prior Technique: Upright upper abdomen, 2 views supine abdomen Findings/impression: 1. NG tube within stomach. 2. No air-fluid levels within upper abdomen, but worsening diffuse small bowel gaseous distention. Probably persistent and/or worsening ileus but obstruction not excluded. 3. Mild scattered colonic gas. Reviewed, dictated and finalized at location R. R OPERATOR
--- NOTE | ~2025-08-10 | XR_ITS ---
EXAMINATION: XR abdomen/kub 1V DATE: 08/24/2025 06:00 INDICATION: Ileus versus small bowel obstruction TECHNIQUE: A supine view of the abdomen on 2 radiographs was obtained. COMPARISON: 08/22/2025 FINDINGS: Nasogastric tube tip in proximal side port in the body the stomach. Midline skin sharon project over the abdomen and pelvis. Left pelvic surgical drain the distal portion of which projects around an anastomotic suture line in the central pelvis. Slight interval decrease in the amount of gas within several still mildly dilated loops of gas-filled small bowel in the central and left abdomen. There is additional small amount of gas within the normal caliber transverse colon. IMPRESSION: 1. Slight improvement in either a postoperative ileus or less likely partial small bowel obstruction. Reviewed, dictated and finalized at location A. CTOR OF COMPENSATION IMPRESSION: 1. Slight improvement in either a postoperative ileus or less likely partial sm all bowel obstruction.
--- NOTE | ~2025-08-10 | XR_ITS ---
XR sm bowel follow through WS 08/17/2025 13:26 Indication: Follow-up small bowel obstruction Procedure: Serial fluoroscopic images were performed through 2 hours. Comparison: Obstructive series dated 08/17/2025 Findings: There is NG tube in the stomach. Contrast present in the stomach lumen with delayed passage into the small bowel. On two-hour delayed images there is contrast in the proximal and mid small bowel with multiple nonopacified dilated loops of small bowel distally. Study was discontinued due to patient complications. Pigtail catheter present in the pelvis, possibly in the bladder lumen. Impression: 1: Incomplete small bowel study with delayed passage of contrast into the distal small bowel. Study terminated due to complications with patient. Proximal small bowel dilated with multiple dilated distal loops of small bowel. Findings compatible with obstruction. Reviewed, dictated and finalized at location O. T METAL TECHNICIAN Impression: 1: Incomplete small bowel study with delayed passage of contrast into the dista l small bowel. Study terminated due to complications with patient. Proximal sma ll bowel dilated with multiple dilated distal loops of small bowel. Findings co mpatible with obstruction.
--- NOTE | ~2025-08-10 | CT_ITS ---
EXAMINATION: CT guide absc cath placement DATE: 08/16/2025 12:21 INDICATION: Pelvic fluid collection post recent sigmoidectomy TECHNIQUE: The procedure including the risks and benefits was discussed with the patient. Risks discussed included bleeding, nerve injury, allergic reaction and infection. The patient understood the risks and benefits and agreed to proceed. The patient was confirmed to be receiving appropriate antibiotic coverage. The skin overlying the right buttock was prepped and draped in usual sterile fashion. Anesthetic was administered with 1% lidocaine subcutaneously. Utilizing CT guidance an 18-gauge trochar needle was inserted into the peritoneal fluid collection. The inner stylette was removed and a J-wire advanced into the fluid collection with position confirmed by CT. Needle was removed and utilizing Seldinger technique the tract was serially dilated over the wire to 10Fr. A 10 Fr pigtail catheter was then placed with position confirmed by CT. This loop of the catheter was formed and locked and the catheter was stitched to the skin with suture. Antibiotic ointment and a sterile dressing were applied. An additional adhesive fixation device was applied. The catheter was then attached to suction drainage and was draining additional fluid at the conclusion of the procedure. The dose-length product was 192.80 mGy-cm. FINDINGS: CT images demonstrate the catheter within the pelvic fluid collection. 60 mL of opaque reddish perea-colored fluid was aspirated for testing. IMPRESSION: 1. Successful CT-guided right transgluteal abscess drainage. 2. 60 mL fluid was sent for aerobic and anaerobic cultures. 3. The catheter will be managed by Dr. Anderson. Reviewed, dictated and finalized at location A. O STATION OPERATOR
--- NOTE | ~2025-08-10 | XR_ITS ---
EXAMINATION: XR abdomen/kub 1V COMPARISON: No comparisons available. HISTORY: f/u ileus FINDINGS: There are dilated loops of small bowel the largest measuring 5 cm with diminished air throughout the large bowel. No free air. No abnormal calcifications No acute osseous abnormality. Nasogastric tube terminates in the stomach. Impression: 1. Ileus versus small bowel obstruction. Findings appear relatively unchanged. Reviewed, dictated and finalized at location P. ERN GRADER CUTTER Impression: 1. Ileus versus small bowel obstruction. Findings appear relatively unchanged.
--- NOTE | ~2025-08-10 | XR_ITS ---
XR abdomen/kub 1V 08/15/2025 05:38 Indication: Small bowel obstruction Procedure: KUB Comparison: 08/14/2025 Findings: NG tube in the stomach. There is a catheter overlying the right abdomen and central abdomen, of uncertain origin. There are dilated small bowel loops which are not significantly changed, consistent with obstruction. There are surgical changes in the pelvis. No acute osseous abnormality. Impression: 1: Persistent small bowel obstruction. Reviewed, dictated and finalized at location O. GRADER Impression: 1: Persistent small bowel obstruction.
--- OUTSIDE RECORDS SUMMARY | 2025-08-10 05:23 | XMS_ITS | Data Portability ---
Author Organization [facility] [employer], Main Office Address [address] [place] [address] Care Team Providers Care Resource Engineer Name Role Phone PHOENIX REMY Primary Care Provider [phone] PHOENIX REMY Referring Provider KOLTON ZAMUDIO General Surgeon Assessment No assessment recorded. Plan of Treatment Reminders Order Date Submit Date Provider Last Modified By Organization Details Last Modified Time Details Appointments None recorded . Lab urinalys is, dipstick 2022 023 [email or web address] [facility], [address], [place], [address], 3 10:05:00 Referral None recorded . Procedures None recorded . Surgeries None recorded . Imaging US, bladder 2022 023 [email or web address] [facility], [address], [place], [address], 3 10:06:08 Medication Orders None recorded . Patient TargetsNo targets recorded. Patient InstructionsNo instructions recorded. Reason for Referral None Reported. Results Created Date Observation Date Name Description Value Unit Range Abnormal Flag Note LastModifiedBy Organization Detail LastModifiedTime 05/01/20 23 05/01/2023 urina lysis , dipst ick Leukocytes (reference range: negative feli/ l) Negati ve Not Available [facility] [address], [place], [address], 05/01/2023 09:50:17 05/01/2005/01/2023 urina lysis , dipst ick Nitrite (reference rage: negative mg/dl) negati ve Not Available [facility] [address], [place], [address], 05/01/2023 09:50:17 05/01/2005/01/2023 urina lysis , dipst ick Urobilinogen (reference range: 0.2-1 mg/dl) 0.2 Not Available [facility] [address], [place], [address], 05/01/2023 09:50:17 05/01/2005/01/2023 urina lysis , dipst ick Protein (reference range: negative mg/dl) Small Not Available [facility] [address], [place], [address], 05/01/2023 09:50:17 05/01/2005/01/2023 urina lysis , dipst ick pH (reference range: 5-7) 5.5 Not Available [facility] [address], [place], [address], 05/01/2023 09:50:17 05/01/2005/01/2023 urina lysis , dipst ick Blood (reference range: negative Meño/ l) Negati ve Not Available [facility] [address], [place], [address], 05/01/2023 09:50:17 05/01/2005/01/2023 urina lysis , dipst ick Specific [place] (reference range: 1.005-1.030) 1.020 Not Available [facility] [address], [place], [address], 05/01/2023 09:50:17 05/01/20 23 05/01/2023 urina lysis , dipst ick Ketone (reference range: negative mg/dl) Trace Not Available [facility] [address], [place], [address], 05/01/2023 09:50:17 05/01/20 23 05/01/2023 urina lysis , dipst ick Bilirubin (reference range: negative mg/dl) Small Not Available [facility] [address], [place], [address], 05/01/2023 09:50:17 05/01/20 23 05/01/2023 urina lysis , dipst ick Glucose (reference range: negative mg/dl) Negati ve Not Available [facility] [address], [place], [address], 05/01/2023 09:50:17 05/01/20 23 05/01/2023 urina lysis , dipst ick Appearance Clear Not Available [facility] [address], [place], [address], 05/01/2023 09:50:17 05/01/20 23 05/01/2023 urina lysis , dipst ick Color Yellow Not Available [facility] [address], [place], [address], 05/01/2023 09:50:17 08/08/20 22 05/29/2022 [email or web address] No observ ation record ed. [id number] Not Available 11/20/2022 17:01:56 10/01/19 23 10/01/2022 raven STEELE, w/o contr ast [facility] [address], [place] [address] [phone] Patien t Name: FROYLAN ROSARIO Access ion #: [id number] Sex: M : 1964 0 Locati [...] space: Unrema rkable Page 1 of 2 [facility] Patien t Name: FROYLAN ROSARIO Access ion #: [id number] Sex: M : 1964 0 Exam Date: 023 2:39 PM Exam Name: MRI SHOULD ER RT WO Admitt ing Diagno sis(es ): Labrum :Gross ly intact AC-vreonica nt:AC joint hypert rophic change s, type [...] signed by: Aquilino vela MD Signed Date: 1/10/2 023 8:13 PM (CT) Dictat ed by: Aquilino vela MD DD: 023 8:13 PM (CT) DT: 023 8:13 PM (CT) Page 2 of 2 [facility].[id number] [facility] (Imaging) [address] [place], [address], 11/20/2022 17:01:56 05/01/20 23 05/01/2023 US, bladd er No observ ation record ed. [facility] [address] [facility] [address], [address], 05/02/2023 14:56:50 Result Notes Documentation Provider Name and Address Organization Details Recorded Time Mri, Shoulder, W/o Contrast : [facility] [address] [place] [address] Patient Name: ROSARIO KEARNS Sex: M : 1965 Location: [facility] Attending Physician: KOLTON QUIROS Ordering Physician: KOLTON [...] tuberosity. Joint space:Unremarkable Page 1 of 2 [facility] Patient Name: ROSARIO KEARNS Sex: M : [...] (CT) Page 2 of 2 Not Available [facility] 11/20/2022 17:01:56 Problems Name Problem SNOMED Code Status Onset Date Resolution Date Notes Provider Name and Address Organization Details Recorded Time Closed fracture of distal end of radius 43575095 Active Not Available [facility] 3 17:00:22 Dog bite - wound 143164697 Active Not Available [facility] 3 17:00:22 Fracture of forearm 62495186 Active Not Available [facility] 3 17:00:23 Ear problem 728205453 Active 2020 Not Available [facility] 3 17:00:22 Disorder of eye 580877733 Active 2020 Not Available [facility] 3 17:00:22 Acute gout 281051584 Active 2020 Not Available [facility] 3 17:00:23 Tendinitis of foot 234248830 Active 2020 Not Available [facility] 3 17:00:23 Left Achilles tendinitis 8624149268274 02 Active 2020 Not Available [facility] 3 17:00:22 Ingrowing nail of toe of left foot 4039240547389 9107 Active 2021 Not Available [facility] 3 17:00:22 Pain of right shoulder joint 3085339518264 9100 Active 2021 Not Available [facility] 3 17:00:22 Impingemen t syndrome of right shoulder region 1287801739480 02 Active 2021 Not Available [facility] 3 17:00:22 Hypospadia s 913689014 Active 2022 Diana Walker MA null, [facility] 3 09:49:57 Penile hypospadia s 384547632 Active 2022 Diana Walker MA null, [facility] 3 09:50:12 Problem Notes None recorded. Procedures Surgical History Date Name Laterality Status Provider Name and Address Organization Details Recorded Time 3 Appendectomy completed Not Available [facility] 023 16:59:24 Tonsillectomy completed Not Available [facility] 11/20/2022 16:59:24 Imaging Results None recorded. Procedure [...] administe red by the provider 05/[address] [facility]: 0003- [id number]- [phone] Not Available Not Available [...] administe red by the provider 05/[address] [facility] 47850 -064- [phone] Not Available Not Available Not Available lidocaine 5 % topical ointment 05/01 completed Not Available Not Available Not Available Virtussin AC 10 mg-100 mg/5 mL oral liquid 12/26 completed Not Available Not Available Not Available Vitals Date Recorded Body height Provider Name an d Address Organization Details Last Updated DateTime 10/10/2022 172.72 cm Not Available [facility] 3 16:59:27 Date Recorded Body mass index (BMI) Body height Heart rate Body weight Systolic And Diastolic Provider Name and Address Organization Details Last Updated DateTime 11/05/2021 25.8 kg/m2 180.34 cm 87 /min 42935.59 g 159/97 mm[Hg] Not Available [facility] 3 16:59:26 Date Recorded Body height Provider Name an d Address Organization Details Last Updated DateTime 05/01/2023 172.72 cm Diana Walker MA [employer] 05/01/2023 09:47:05 Date Recorded Body mass index (BMI) Body weight Body temperature Oxygen saturation Oxygen saturation in Arterial blood by Pulse oximetry Heart rate Systolic And Diastolic Provider Name and Address Organization Details Last Updated DateTime 3 0.2 kg/m2 453.59 g 98.2 [degF] 97 % 97 % 100 /min 146/88 mm[Hg] MORRIS [place] [employer] 3 09:49:54 Date Recorded Body mass index (BMI) Body height Body weight Provider Name and Address Organization Details Last Updated DateTime 08/08/2022 28.1 kg/m2 172.72 cm 73578.59 g Not Available [facility] 11/20/2022 16:59:27 Date Recorded Body height Provider Name an d Address Organization Details Last Updated DateTime 09/12/2022 172.72 cm Not Available [facility] 3 16:59:27 Social History Question Answer Notes LastModified by Organizat ion Details LastModified Time Tobacco Smoking Status Never Smoker Not Available [facility] 11/20/2022 16:59:12 What Is Your Level Of Caffeine Consumption? None Information not available 05/01/2023 What Was The Date Of Your Most Recent Tobacco Screening? 05/01/2023 [email or web address] Information not available 05/01/2023 Have You Ever [...] is your level of alcohol consumption? 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 Family History Relationship Description Onset Age of this Age Resolved Age Notes LastModified by Organization Details LastModified Time Unspecified Relation Heart disease FATHER S SIDE OF FAMILY [id number] Not available 11/20/2022 16:59:24 Unspecified Relation Family history of malignant neoplasm mom side [id number] Not available 11/20/2022 16:59:24 Brother Family history of stroke [id number] Not available 11/20/2022 16:59:24 Father Family history of stroke [id number] Not available 11/20/2022 16:59:24 Notes:STROKE-BROTHER, CANCER -MOTHERS SIDE OF FAMILY Medical History Condition Response BLINDNESS N CYSTITIS N RHEUMATIC FEVER N KIDNEY STONES N [...] ASTHMA N Abdominal Pain N CATARACTS N ERECTILE DYSFUNCTION N ARTERIAL INSUFFICIENCY N GI PROBLEMS N Low Testosterone N AIDS/HIV N LIVER DISEASE N MALE HYPOGONADISM N HYPERTENSION Y TOURETTE'S N BLOOD TRANSFUSION N ANEMIA/BLOOD DISORDER N TUBERCULOSIS N GLAUCOMA N SLEEP APNEA N BACK INJECTIONS N INFECTIOUS DISEASE N HEART ARRHYTHMIA N PROSTATE N ESRD N INSOMNIA N HIGH CHOLESTEROL / HYPERLIPIDEMIA N HYPERTHYROIDISM N UTI N PVD N EDEMA N HYPOTHYROIDISM N BACK / NECK PROBLEMS N HAVE YOU BEEN HOSPITALIZED OR SEEN IN [facility] IN THE PAST YEAR ? N DIALYSIS N POLYCYSTIC OVARIES N OSTEOPOROSIS N ARTHRITIS N NO SIGNIFICANT PAST MEDICAL HISTORY N DIABETES, TYPE N VON WILLIBRAND'S DISEASE N PARKINSON N incontinence N HEPATITIS / LIVER DISEASE N POST LAMINECTOMY SYNDROME N GOUT N ALZHEIMER'S DISEASE N SLEEP DISORDER N HERPES N HEADACHES/MIGRAINES N SEIZURES/EPILEPSY N HEART MURMUR N PACEMAKER N DIZZINESS N HEART DISEASE/HEART PROBLEMS N KIDNEY DISEASE N MULTIPLE SCLEROSIS N NEUROPSYCHOLOGICAL N CANCER: SPECIFY N ANESTHESIA COMPLICATIONS N ATRIAL FIBRILLATION N AUTOIMMUNE DISEASE N Past Encounters Encounter ID Performer Location Encounter Start Date Encounter Closed Date Diagnosis/Indication Diagnosis SNOMED-CT Code Diagnosis ICD10 Code Diagnosis IMO Codes Diagnosis Note [id number] Orlando Kiser DPM [facility] [address] [place] [phone] 0 05/11/2021 00:00:00 05/11/2021 10:53:51 [id number] Orlando Kiser DPM [facility] [address] [place] [address] [phone] 0 05/22/2021 00:00:00 05/22/2021 13:13:41 [id number] Orlando Kiser DPM [facility] [address] [place] [address] [phone] 0 06/11/2021 00:00:00 06/11/2021 14:10:01 [id number] Orlando Kiser DPM [facility] [place] [address] [place] [address] [phone] 0 10/22/2021 00:00:00 10/22/2021 10:00:07 [id number] Orlando Kiser DPM [facility] [place] [address] [place] [address] [id number] 0 11/05/2021 00:00:00 11/05/2021 09:47:19 [id number] Kolton Quiros MD [facility] [address] [place] [address] 08/08/2022 00:00:00 08/08/2022 13:53:55 [id number] Kolton Quiros MD [facility] [address] [facility], [address] [place] [address] 09/12/2022 00:00:00 09/18/2022 09:59:14 [id number] MD BRIGIDA [facility] [address] [facility], [address] [place] [address] 10/10/2022 00:00:00 10/20/2022 14:24:35 [id number] MD BRIGIDA [facility] [address] [facility] [address] [place] [address] 05/01/2023 09:30:58 05/01/2023 10:06:08 Penile hypospadias [id number] Q54.1 The patient will need to have [...] Harp Member ID Guarantor Name 05/01/2023 1 [facility] - DOS ON OR AFTER 21 (MEDICAID REPLACEMENT - HMO) Rosario Kearns [id number] Rosario Kearns Notes Date Note Type Note Provider Name and Address Organization Details Recorded Time 05/01/2023 text/html 57 yo male with hypospadias. No difficulty voiding. Recently he was to undergo a colon resection. They unable to place a altamirano so it was canceled and he was referred here. Mina Rincon MD [address] [facility], [place], [address], [place] [facility] [place] [employer] 05/01/2023 10:05:27
--- OUTSIDE RECORDS SUMMARY | 2025-08-10 05:23 | XMS_ITS | Clinical Summary ---
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
--- OUTSIDE RECORDS SUMMARY | 2025-08-10 05:23 | XMS_ITS | Data Portability ---
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 Plan of Treatment Reminders Order Date Submit Date Provider Last Modified By Organization Details Last Modified Time Details Appointments None recorded. Lab None recorded. Referral general surgeon referral 2024 025 [email or web address] [facility], [address] [place], [address], 5 15:37:33 Procedures None recorded. Surgeries None recorded. Imaging None recorded. Medication Orders tramadol 50 mg tablet 2024 025 [facility], [address] [place] [address], [id number], 5 10:13:47 amoxicillin 875 mg-potassiu m clavulanate 125 mg tablet 2024 025 [facility], [address] [place] [address], [id number], 5 13:17:40 amoxicillin 875 mg-potassiu m clavulanate 125 mg tablet 2024 025 [place] [address] [facility], [address] [place] [address], [id number], 5 13:08:19 ergocalcife rol (vitamin D2) 1,250 mcg (50,000 unit) capsule [address] [facility], [address] [place] [address], [id number], 5 16:02:57 tizanidine 4 mg tablet 2023 [facility], [address] [place] [address], [id number], 5 17:07:13 losartan 100 mg-hydrochl orothiazide 12.5 mg tablet 2023 [facility], [address] [place] [address], [id number], 5 14:05:49 losartan 100 mg-hydrochl orothiazide 12.5 mg tablet 2023 [facility], [address] [place] [address], [id number], 4 13:18:53 losartan 50 mg tablet 2023 [facility], [address] [place] [address], [id number], 4 17:21:26 Patient TargetsNo targets recorded. Patient Instructions Encounter Date Encounter Id Patient Instructions Last Modified By Organization Details Last Modified Time 03/30/2024 [id number] learning about high blood sugar [email or web address] Not available 03/30/2024 17:21:27 learning about high blood pressure [email or web address] Not available 03/30/2024 17:21:27 06/30/2024 [id number] learning about high blood sugar [email or web address] Not available 06/30/2024 17:43:56 A healthy lifestyle: care instructions [email or web address] Not available 07/01/2024 14:20:15 back care and preventing injuries: care instructions [email or web address] Not available 06/30/2024 17:43:55 learning about high blood pressure [email or web address] Not available 06/30/2024 17:43:55 01/10/2025 [id number] learning about high blood sugar Not available 01/10/2025 17:39:09 folate deficienc y anemia: care instructions [email or web address] Not available 01/10/2025 17:39:09 learning about high blood pressure [email or web address] Not available 01/10/2025 17:39:09 diverticulitis: care instructions [email or web address] Not available 01/10/2025 17:37:03 learning about diverticulosis and diverticulitis Not available 01/10/2025 17:37:03 07/13/2025 [id number] learning about high blood pressure [email or web address] Not [...] Serum or Plasm a Unknown Analyte [facility] at: 01 - [facility] [place] [phone] [facility] Direct or: Anson sheets PhD, Not [...] - 7.14 x10e9/ L Neutr ophil Absol [place] 5.91 2.01 - 7.14 x10E9 /L 06/15 1:17 PM CDT [facility] Not Available Not Available 01/10/2025 09:59:53 06/15/20 24 06/15/2024 CBC W Auto Diffe renti al panel - Blood lymphocytes [#/volume] in blood by automated count 1.96 text: 1.07 - 3.94 x10e9/ L Lymph ocyte s Absol [place] 1.96 1.07 - 3.94 x10E9 /L 06/15 1:17 PM CDT [facility] STM Not Available Not Available 01/10/2025 09:59:53 06/15/20 24 06/15/2024 CBC W Auto Diffe renti al panel - Blood monocytes [#/volume] in blood by automated count 0.6 text: 0.26 - 1.07 x10e9/ L Monoc ytes Absol [place] 0.60 0.26 - 1.07 x10E9 /L 06/15 1:17 PM CDT [facility] STM Not Available Not Available 01/10/2025 09:59:53 06/15/2006/15/2024 CBC W Auto Diffe renti al panel - Blood eosinophils [#/volume] in blood by automated count 0.3 text: 0 - 0.47 x10e9/ L Eosin ophil s Absol [place] 0.30 0 - 0.47 x10E9 /L 06/15 1:17 PM CDT [facility] STM Not Available Not Available 01/10/2025 09:59:53 06/15/2006/15/2024 CBC W Auto Diffe renti al panel - Blood basophils [#/volume] in blood by automated count 0.05 text: 0 - 0.08 x10e9/ L Basop hils Absol [place] 0.05 0 - 0.08 x10E9 /L 06/15 1:17 PM CDT [facility] STM Not Available Not Available 01/10/2025 09:59:53 06/15/20 24 06/15/2024 CBC W Auto Diffe renti al panel - Blood erythrocytes [#/volume] in blood by automated count 5.16 text: 3.80 - 5.40 x10e12 /L RBC 5.16 3.80 - 5.40 x10E1 2/L 06/15 1:17 PM CDT [facility] STM Not Available Not Available 01/10/2025 09:59:53 06/15/2006/15/2024 CBC W Auto Diffe renti al panel - Blood hemoglobin [mass/volume ] in blood 16.2 text: 12.0 - 17.6 gm/dL Hemog lobin 16.2 12.0 - 17.6 gm/dL 06/15 1:17 PM CDT [facility] STM Not Available Not Available 01/10/2025 09:59:53 06/15/2006/15/2024 CBC W Auto Diffe renti al panel - Blood hematocrit [volume fraction] of blood by automated count 46.6 % low: 35.2%h igh: 51.7% Hemat ocrit 46.6 35.2 - 51.7 % 06/15 1:17 PM CDT [facility] STM Not Available Not Available 01/10/2025 09:59:53 06/15/2006/15/2024 CBC W Auto Diffe renti al panel - Blood MCV [entitic mean volume] in red blood cells by automated count 90.3 fL low: 80.7fL high: 98.3fL MCV 90.3 80.7 - 98.3 fl 06/15 1:17 PM CDT [facility] STM Not Available Not Available 01/10/2025 09:59:53 06/15/20 24 06/15/2024 CBC W Auto Diffe renti al panel - Blood MCH [entitic mass] by automated count 31.4 pg low: 26.7pg high: 34pg MCH 31.4 26.7 - 34.0 pg 06/15 1:17 PM CDT [facility] STM Not Available Not Available 01/10/2025 09:59:53 06/15/2006/15/2024 CBC W Auto Diffe renti al panel - Blood MCHC [entitic mass/volume] in red blood cells by automated count 34.8 text: 30.8 - 35.9 gm/dL MCHC 34.8 30.8 - 35.9 gm/dL 06/15 1:17 PM CDT [facility] STM Not Available Not Available 01/10/2025 09:59:53 06/15/20 24 06/15/2024 CBC W Auto Diffe renti al panel - Blood erythrocyte [distwidth] in red blood cells by automated count 12.4 % low: 12.1%h igh: 14.9% RDW-C V 12.4 12.1 - 14.9 % 06/15 1:17 PM CDT [facility] STM Not Available Not Available 01/10/2025 09:59:53 06/15/20 24 06/15/2024 CBC W Auto Diffe renti al panel - Blood platelets [#/volume] in blood by automated count 189 text: 153 - 416 x10e9/ L Plate let Count 189 153 - 416 x10E9 /L 06/15 1:17 PM CDT [facility] STM Not Available Not Available 01/10/2025 09:59:53 06/15/20 24 06/15/2024 CBC W Auto Diffe renti al panel - Blood platelet [entitic mean volume] in blood by automated count 7.8 fL low: 9.4fLh igh: 12.9fL low MPV 7.8 (L) 9.4 - 12.9 fl 06/15 1:17 PM CDT [facility] STM Not Available Not Available 01/10/2025 09:59:53 06/15/2006/15/2024 CBC W Auto Diffe renti al panel - Blood nucleated erythrocytes /leukocytes [ratio] in blood by automated count 0 text: <=0 /100 WBC NRBC 0.0 <=0 /100 WBC 06/15 1:17 PM CDT [facility] STM Not Available Not Available [...] anshul consu ltati on, pleas e call [phone]. ===== ===== ===== ===== ===== ===== ===== ===== ===== ===== ===== ===== ===== === Not Available [facility] ([facility]) [address] [facility], [place], [address], 10/26/2024 19:08:34 10/20/1910/26/2024 COMPL IANCE DRUG HAFSA SIS, UR pdf . Not Available [facility] ([facility]) [address] [facility], [place], [address], 10/26/2024 19:08:34 06/16/2006/17/2025 CMP, serum or plasm [...] or coding display name was found [facility] at: - [place] [phone] Lab Direct or: Anson sheets PhD, Not [...] XR, chest No observ ation record ed. [address], [place], [address], 03/17/2025 16:48:00 03/21/20 25 03/21/2025 CT, chest , w/o contr ast No observ ation record ed. [address] [place], [address], 03/21/2025 14:32:58 Result Notes None recorded. Problems Name Problem SNOMED Code Status Onset Date Resolution Date Notes Provider Name and Address Organization Details Recorded Time Low back pain 295161587 Active 2021 Not Available [facility] 07:50:17 Essential hypertension 14758552 Active 2023 Tien Valerio MD Attn: Accounting ,[address] [place], [address] , [facility] 17:27:43 History of deep vein thrombosis 528538757 Active 2023 Tien Valerio MD Attn: Accounting ,[address] [place], [address] , [facility] 17:28:30 History of pulmonary embolus 531185676 Active 2023 Tien Valerio MD Attn: Accounting ,[address] [place], [address] , [facility] 17:28:54 Screening for malignant neoplasm of prostate Active 2023 Tien Valerio MD Attn: Accounting ,[address] [place], [address] , [facility] 17:33:38 Long-term current use of anticoagulant 598587443 Active 2023 Tien Valerio MD Attn: Accounting ,[address] [place], [address] , [facility] 04/03/202 4 17:35:06 Diverticular disease 954858597 Active 2023 Tien Valerio MD Attn: Accounting ,[address] [facility], [place], [address] , [place] - [facility] 4 17:36:23 Vitamin D deficiency 20294453 Active 2023 Tien Valerio MD Attn: Accounting ,[address] [facility], [place], [address] , [place] - [facility] 4 12:49:09 Macrocytosis 460110833 Active 2023 Tien Valerio MD Attn: Accounting ,[address] [facility], [place], [address] , [place] - [facility] 4 12:49:34 Hyperglycemia 83482611 Active 2023 Tien Valerio MD Attn: Accounting ,[address] [place], [address] , [place] - [facility] 4 12:50:28 Folic acid deficiency 060010182 Active 2023 Tien Valerio MD Attn: Accounting ,[address] [place], [address] , [place] [facility] 4 07:30:18 Medication monitoring Active 2024 Tien Valerio MD Attn: Accounting ,[address] [place], [address] , [place] - [facility] 5 01:58:05 Diverticuliti s 575765065 Active 2024 Tien Valerio MD Attn: Accounting ,[address] [place], [address] , [place] - [facility] 5 17:35:53 Problem Notes None recorded. Procedures Surgical History Date Name Laterality Status Provider Name and Address Organization Details Recorded Time Appendectomy completed CHERELLE Chung - [facility] 05/15/2021 14:08:07 Tonsillectomy completed Nitin Porter MA PA - [facility] 05/15/2021 14:08:22 Imaging Results None [...] Updated DateTime 5 180.34 cm 26.5 kg/m2 03761.5 5 g 96 /min 96 % 96 % 135/94 mm[Hg] Massiel Lopez MA [facility] 5 17:10:07 Date Recorded Body height Body mass index (BMI) Body weight Body temperature Heart rate Oxygen saturation Oxygen saturation in Arterial blood by Pulse oximetry Respiratory rate Pain severity - 0-10 verbal numeric rating [Score] - Reported Systolic And Diastolic Provider Name and Address Organization Details Last Updated DateTime 5 180.34 cm 26.2 kg/m2 12237.3 7 g 97 [degF] 84 /min 96 % 96 % 18 /min 3 104/74 mm[Hg] Sandhya Ramesh LPN [facility] 5 14:43:31 Date Recorded Body height Body mass index (BMI) Body weight Oxygen saturation Oxygen saturation in Arterial blood by Pulse oximetry Heart rate Systolic And Diastolic Provider Name and Address Organization Details Last Updated DateTime 4 180.34 cm 26.9 kg/m2 72860.3 3 g 98 % 98 % 96 /min 168/98 mm[Hg] Linda Ford MA [facility] 4 16:39:48 Date Recorded Body height Body mass index (BMI) Body weight Oxygen saturation Oxygen saturation in Arterial blood by Pulse oximetry Heart rate Systolic And Diastolic Provider Name and Address Organization Details Last Updated DateTime 4 180.34 cm 25.7 kg/m2 43597.2 8 g 95 % 95 % 88 /min 130/81 mm[Hg] Jnoo Rosas MA [facility] 4 17:10:48 Date Recorded Body height Body mass index (BMI) Body weight Heart rate Oxygen saturation Oxygen saturation in Arterial blood by Pulse oximetry Systolic And Diastolic Provider Name and Address Organization Details Last Updated DateTime 5 180.34 cm 25.7 kg/m2 24083 g 88 /min 97 % 97 % 114/70 mm[Hg] Reshma Cameron MA [facility] 5 15:47:57 Social History Question Answer [...] Do You Have A Medical Power Of Compliance Assistant? Yes Information not available 02/13/2023 What Was [...] 50 mcg/0.25mL dose 03/27/2021 completed CHERELLE Ramesh, PA - [facility] 05/06/2023 12:41:22 COVID-19, mRNA, LNP-S, PF, 100 mcg/0.5mL dose or 50 mcg/0.25mL dose 04/24/2021 completed CHERELLE Ramesh, PA - [facility] 05/06/2023 12:41:22 Influenza, split virus, quadrivalent, PF 07/02/2017 completed CHERELLE Ramesh, PA - [facility] 05/06/2023 12:41:22 Past Encounters Encounter ID Performer Location Encounter Start Date Encounter Closed Date Diagnosis/Indication Diagnosis SNOMED-CT Code Diagnosis ICD10 Code Diagnosis IMO Codes Diagnosis Note [id number] [facility] Kin[facility] [address] [place] [address] 05/15/2021 13:44:32 05/17/2021 11:07:24 Gouty arthritis of toe 528149173 M10.079 Discussed with patient, avoid red meat, sea food, on low purine diet., avoid alcohol or consume less amount. [facility] 929838429 Z00.00 Avoid cigarettes smoking, Benign pro static hyperplasia 133374513 N40.0 PSA screening. Screening for malignant neoplasm of colon 782033783 Z12.11 Discussed with patient, he agreed for the screening. [id number] Kolton Nevarez MD [facility] [address] [place] [address] 05/24/2021 10:01:10 05/25/2021 12:50:30 Screening for malignant neoplasm of colon 740197386 Z12.11 [id number] MD Marietta Chávez (Adult Med) [address] [place] [address] 06/05/2021 12:07:32 06/06/2021 08:53:38 Bilateral heel pain 1590410791 8294100 M79.671 M79.672 Wants some pills for the relief of pain for the mean time. [id number] MD Marietta Chávez (Adult Med) [address] [place] [phone] 10/10/2021 15:58:54 10/12/2021 10:16:16 Persistent cough 164113903 R05.3 Will try liquid cough syrup, he agreed. Headache 67510830 R51.9 Will try baclofen for the mean time. [id number] MD Marietta Chávez (Adult Med) [address] [place] [phone] 04/05/2022 11:25:12 04/09/2022 07:39:38 Acute low back pain 501604002 M54.50 Discussed with patient, will order following the tests and med. Light duty for 2 months. [id number] MD Marietta Chávez (Adult Med) [address] [place] [address] 05/29/2022 14:53:52 05/30/2022 09:36:37 Pain of right shoulder joint 5792503690 3448151 M25.511 Tizanidine made him oozy, he declines PT , but would like to resume tylenol #3 as needed basis. [id number] MD Marietta Chávez (Adult Med) [address] [place] [address] 07/03/2022 09:45:30 07/04/2022 11:18:32 Pain of right shoulder joint 2511362410 9421555 M25.511 Tizanidine made him oozy, he declines PT , it painful to exercise, but would like to resume tylenol #3 as needed basis. will refer to orthopedic . Chronic low back pain 27 7512360 M54.50 Tried PT but did not help to relieve the pain, since March 2022. Ran out the tylenol #3 for pain. Hard to bend to the right side, pain radiating to the cheek and right leg, indicates right sciatica. [id number] Meche Kinney MD [facility] (Adult Med) [address] [place] [address] 12/10/2022 17:05:55 12/13/2022 17:34:47 Overweight 428571638 E66.3 PMI is 26.9. diet, exercise and keep the weight down. Chronic low back pain 27 7229332 M54.50 Tried PT but did not help to relieve the pain, since March 2022. Ran out the tylenol #3 for pain. Hard to bend to the right side, pain radiating to the cheek and right leg, indicates right sciatica. Essential hypertension 15618926 I10 BP 120/70, well controlled , will refill med. Erectile dysfunction 860 756992 F52.21 Discussed with patient , that gabapentin and tizanidine mess his life he said. Diverticul itis of colon 080439171 K57.32 Avoid rough or nut meal. may try ABS as prescribed . or ER. He agreed. [id number] Meche Kinney MD [facility] (Adult Med) [address] [place] [phone] 02/11/2023 12:29:49 02/12/2023 14:26:11 Overweight 736930068 E66.3 PMI is 26.9. diet, exercise and keep the weight down. Diverticul itis of colon 729888177 K57.32 Avoid rough or nut meal. may try ABS as prescribed . or ER. He agreed. Still taking ABS. Chronic low back pain 27 9306678 M54.50 Tried PT but did not help to relieve the pain, since March 2022. Ran out the tylenol #3 for pain. Hard to bend to the right side, pain radiating to the cheek and right leg, indicates right sciatica. Elevated blood-pressure reading without diagnosis of hypertension 968520621 R03.0 Since he took med for hypertens ion he felt almost passing out. . Will just monitoring blood pressure for the mean time. HIV screen ing declined 7930177301 20661 Z53.20 He declined 02-11-23. [id number] [facility] [address] [place] [address] 02/13/2023 11:13:15 02/13/2023 13:34:45 Abscess of sigmoid colon co-occurrent and due to diverticulitis 1976482996 975072 K57.20 patient with history of diverticul itis, [...] to retrieve CT scan disks for review. [id number] Kolton Nevarez MD [facility] ts [address] [place] [address] 03/13/2023 10:51:07 03/17/2023 10:48:36 Complicated diverticular disease of large intestine 307108561 K57.90 Patient with multiple episodes of complicate [...] OR as soon as is convenient . [id number] MD Marietta Chávez (Adult Med) [address] [place] [address] 05/06/2023 12:38:03 05/07/2023 16:10:52 Chronic low back pain 509846881 M54.50 Tried PT but did not help [...] will have urine drug screening. Essential hypertension 60589396 I10 BP 120/70, well controlled , will refill med. Blood pressure monitor provided to him today. Pain in ri ght lower limb 875850467 M79.604 Discussed with patient. will do venous doppler to R/O acute DVT, empirical ABO and diuretic, if positive DVY will treat with anticoagul ant. for 3 months. HIV screen ing declined 8056110320 65388 Z53.20 He declined 02-11-23. Also today . [id number] MD Marietta Chávez (Adult Med) [address] [place] [phone] 05/13/2023 14:22:18 05/16/2023 10:33:25 Pulmonary embolism 79530204 I26.99 oN XARELTO, [place] A HEMATOLOGI ST. Acute deep venous thrombosis of right lower extremity 2739299661 13975 I82.401 On xarelto, will see a hematologi st. [id number] MD Marietta Chávez (Adult Med) [address] [place] [address] 08/07/2023 15:09:43 08/12/2023 14:18:46 Chronic low back pain 483433856 M54.50 Tried PT but did not help [...] will change to tramadol instead. He agreed. [id number] MD Marietta Chávez (Adult Med) [address] [place] [address] 11/06/2023 15:30:44 11/10/2023 16:52:16 Chronic low back pain 824030638 M54.50 Tried PT but did not help [...] Deep venou s thrombosis of lower extremity 987249294 I82.409 On xarelto 10 mg /day. [id number] MD Marietta Kemp (Adult Med) [address] [place] [address] 12/24/2023 15:40:48 12/26/2023 09:53:24 History of deep vein thrombosis 216005421 Z86.718 Cont xarelto Essential hypertension 39891936 I10 Cont current rx Chronic low back pain 27 9265571 M54.50 Screening for malignant neoplasm of prostate 850030284 Z12.5 Long-term current use of anticoagulant 418651509 Z79.01 Diverticular disease 397 293514 K57.90 [id number] Tien Valerio MD [facility] (Adult Med) [address] [place] [id number] 02/04/2024 15:49:48 02/05/2024 08:27:02 Essential hypertension 68994548 I10 Increase to 100 mg/d Diverticular disease 397 133517 K57.90 History of pulmonary embolus 159872233 Z86.711 Hyperglycemia 16993942 R 73.9 Macrocytosis 235517520 D 75.89 Continue folic acid supplement [id number] MD Marietta Kemp (Adult Med) [address] [place] [address] 03/30/2024 16:21:50 04/01/2024 14:39:47 Essential hypertension 71134670 I10 Add diuretic to losartan Diverticular disease 397 563195 K57.90 History of pulmonary embolus 075492922 Z86.711 Hyperglycemia 71692316 R 73.9 Macrocytosis 906946245 D 75.89 Continue folic acid supplement [id number] MD Marietta Kemp (Adult Med) [address] [place] [phone] 06/30/2024 16:35:54 07/05/2024 15:00:41 Overweight 135385677 E66.3 History of deep vein thrombosis 784175048 Z86.718 Cont xarelto History of pulmonary embolus 421328704 Z86.711 Long-term current use of anticoagulant 533683712 Z79.01 Hyperglycemia 46514074 R 73.9 Watch carbohydra te intake Low back pain 597365282 M54.50 Vitamin D deficiency 347 56981 E55.9 Diverticular disease 397 276305 K57.90 Essential hypertension 13001800 I10 Add diuretic to losartan [id number] MD Marietta Kemp (Adult Med) [address] [place] [phone] 01/10/2025 16:57:43 01/17/2025 12:56:08 Diverticulitis 483727122 K57.92 84303 Essential hypertension 18992726 I10 Cont current meds. Labs on return OV Folic acid deficiency 19 8312892 E53.8 Hyperglycemia 33691448 R 73.9 Watch carbohydra te intake Long-term current use of anticoagulant 876399854 Z79.01 [id number] Kolton Nevarez MD [facility] [address] [place] [address] 01/25/2025 14:22:27 01/26/2025 07:43:20 Diverticulitis 880520563 K57.92 [id number] Patient with continued diverticul ar disease, including [...] that he wishes to be referred to [facility]. [id number] MD Marietta Queen (Adult Med) [address] [place] [phone] 07/13/2025 15:35:40 07/14/2025 13:00:36 Chronic low back pain 997191241 M54.50 Education Essential hypertension 85802728 I10 Controlled Overweight in adulthood with body mass index of 25 or more but less than 30 930269215 Z68.25 [id number] Noted. [facility] Concerns Section Related Observation LastModified by Organization Detai ls LastModified Time None Recorded Concern Status LastModified by Organization Details LastModified Time None Recorded Advance Directives Directive N: Payers Insurance Date Sequence Insurance Name Policy Number Policy Harp Covered Member ID Harp Member ID Guarantor Name 07/13/2025 1 [facility] ON OR AFTER 03/22/21 (MEDICAID REPLACEMENT - HMO) Caseyevelia Kearns [id number] Caseyeevlia Kearns 07/13/2025 1 [facility] ON OR AFTER 03/22/21 (MEDICAID REPLACEMENT - HMO) Casey Urmila [id number] Casey Urmila Notes Date Note Type Note Provider Name and Address Organization Details Recorded Time 03/30/2024 text/html Here for blood pressure f/u. Some times forgets to take second BP pill. Tien Valerio MD Attn: Accounting[address] [place], [place], [address] [place] [address], [facility] 03/30/2024 17:21:30 06/30/2024 text/html Here for BP f/u. pt requests rx for tizanidine Tien Valerio MD Attn: Accounting[address] [place], [address], [facility] 06/30/2024 17:44:30 01/10/2025 text/html Here for routine f/u. Had a flare of diverticular disease one week ago. He has had abdominal pain and initially diarrhea. Now has multiple non-formed stools Tien Valerio MD Attn: Accounting[address] [place], [address], [facility] 01/10/2025 17:39:37 01/25/2025 text/html Patient [...] him out of work. Kolton Nevarez MD [address] [place], [address], [facility] 01/25/2025 15:11:35 07/13/2025 text/html Hypertension F/UReported [...] refill Abimael Rubio MD Attn: Accounting[address] [place], [address], [facility] 07/13/2025 23:47:36
--- OUTSIDE RECORDS SUMMARY | 2025-08-10 05:23 | XMS_ITS | Clinical Summary ---
Author Organization [facility] Address [address] [place] [address] Care Team Providers Care Tire Man Name Role Phone Meche Kinney MD Primary Care Provider [phone] Source Comments [facility],non-owned Affiliates and Associated Physician Practices is amultiple site organization consisting of ambulatory clinics and hospital sitesin [place], [place], [place] and [place]. This disclosure is being madepursuant to the Care Everywhere program and may not contain all information available regarding this patient. Last updated 18.[facility] Allergies No known active allergies Medications * Be aware that medications may not be up to date on this document. Alwaysverify current medications with the patient. HYDROcodone-acet aminophen ([place]) 5-325 MG tablet Take 1 (one) tablet [...] Description 06/16/2025 3:10 PM CDT Office Visit [address] [address] Dillon Sandoval MD Acute saddle pulmonary embolism, unspecified whether acute cor pulmonale present (HCC) (Primary Dx); DIANA (obstructive sleep apnea); Anticoagulation management encounter; Erythrocytosis 06/01/[address] [address] Dillon Sandoval MD MEDICATION REFILL from Last [...] Recorded Patient Health Questionnaire-2 Score 0 06/16/2025 [facility] [place] of Occupat ional Health - Occupational Stress [...] place to sleep or slept in a skilled nursing (including now)? No 05/07/2023 Sex and Gender [...] Info) Description 06/20/2026 1:40 PM CDT Documentation [address] [address] 06/20/2026 1:50 PM CDT Office Visit [facility] [address] [address] Dillon Sandoval MD [address] [place] [id number] Health Maintenance Due Date Last Done [...] 50+ (1 of 1 - PCV) 2014 Respiratory Syncytial Virus (RSV) Vaccine Pt: or over 60 yrs (1 - Risk 50-74 years 1-dose series) 2014 ZOSTER VACCINE (1 of 2) 2014 COVID-19 VACCINE (3 - season) 2025 04/24/2021, [...] CDT 06/16/2025 Comment:Blood Release to pat i Eve [facility] INSURANCE BILL - 06/17/2025 8:12 AM CDT Performed at: [address] [place] [id number] Tool Maker Bench: Prasanna Valentino PhD, Phone: [phone] us Dillon Sandoval MD LAB - CHEMISTRY ORDERABLES Fi nal Result [facility] INSURANCE BILL [address] [place] [address] * (ABNORMAL) CBC W AUTO DIFFERENTIAL (CANCER CARE) (06/16/2025 2:36 PM CDT) [facility] WBC 9.8 4.4 - 10.7 x10E9/L 06/16/2025 [...] 2:36 PM CDT 06/16/2025 2:36 PM CDT us Dillon Sandoval MD LAB - HEMATOLOGY ORDERABLES F inal Result Performing Organization Address City/State/[facility] Co de Phone Number [facility] [address] from Last 3 Months Insurance [facility] Advance Directives * Full Code (Latest Code Status on File) Date Activated Date Inactivated Comments 05/07/2023 4:02 PM 05/10/2023 2:56 PM Care Teams Tire Man Relationship Specialty Start Date End Date Meche Kinney MD [address] [place] [address] PCP - General Internal Medicine 05/07/23
[2025-08-10] MEDS: LACTATED RINGERS 1,000 ML 30 ML IV CONT ×2 (06:41→11:38)
[2025-08-10] MEDS: KETOROLAC 15 MG/ML VIAL (*BKC) IV PUSH (06:41)
[2025-08-10] MEDS: ALVIMOPAN 12 MG CAPSULE PO (06:55)
[2025-08-10] MEDS: ACETAMINOPHEN 500 MG TABLET 1000 MG PO (06:55)
[2025-08-10] MEDS: SCOPOLAMINE 1 MG PATCH 1 PATCH TRANSDERM (07:10)
--- NOTE | 2025-08-10 07:22 | P.PNAN_ITS ---
Anes - Initial Pre Proc Eval Procedure: Operation Date: 08/10/25 07:30 Proposed Procedures p Hand Assisted Laparoscopic Sigmoidectomy - José Luis Anderson MD s Bilateral Ureteral Stent Placement for Abdominal Surgery - Jarrod Longoria MD Date/Time: 08/10/25 07:22 Surgeon: José Luis Anderson MD Pre Op Diagnosis: Diverticulitis Patient Data Age: 60 Gender: M Height: 1.78 m Weight: 80.5 kg Last Vital Signs Temp 97.2 F L 08/10/25 06:39 Pulse 94 08/10/25 06:39 Resp 18 08/01/25 10:40 BP 132/94 H 08/10/25 06:39 Pulse Ox 98 08/10/25 06:39 O2 Del Method Room Air 08/10/25 06:39 Allergies Allergy/AdvReac Type Severity Reaction Status Date / Time No Known Allergies Allergy Verified 08/01/25 09:43 Home Medications ?Medication ?Instructions ?Recorded ?Confirmed ?Type losartan 100 1 tablet PO DAILY 02/01/25 1 10/10/24 History mg-hydrochlorothiazide 12.5 mg tablet tramadol 50 mg tablet 50 mg PO BID PRN pain 08/01/25 History umeclidinium 62.5 mcg-vilanterol 1 inh inhalation Q24H 04/07/25 08/01/25 Rx 25 mcg/actuation powdr for bronchiectasis 3 months #18 0 ea inhalation (Anoro Ellipta) albuterol sulfate 90 mcg/actuation 2 inh inhalation Q6 H PRN shortness 04/26/25 08/01/25 Rx aerosol inhaler (Ventolin HFA) of breath 1 month #8.5 grams ciprofloxacin HCl 500 mg tablet 500 mg PO .COMPLEX #1 tablet 08/01/25 08/10/25 Rx metronidazole 500 mg tablet 500 mg PO .COMPLEX #3 tabs 08/01/25 08/10/25 Rx rivaroxaban 20 mg tablet (Xarelto) 20 mg PO DAILY 07/2308/10/25 History Patient hx anesthesia problems: post op nausea/vomiting Family hx anesthesia problems: none Results Review: All pre-operative results and documents have been reviewed as part of the pre- operative evaluation. [facility] Past Medical History Medical History Bronchiectasis History of pulmonary embolism History of pulmonary embolus (PE) History of DVT (deep vein thrombosis) Hypertension Surgical History Surgical History Hx of tonsillectomy Social History Social History Smoking status: Never smoker Alcohol intake: current Drinks per week: 21 Alcohol use details: BEER Substance use: never Substance use type: does not use Do You Feel Safe in your Home?: Yes Lack of Transportation: No Lack of Food: Never True Current Housing: I Have Housing Concerned About Future Housing: No Difficulty Paying Gas/Electric Bills: No Difficulty Paying for Meds: No Currently Unemployed: No Education: High School Diploma/GED Difficulty w/ Childcare or Family Care: No Living arrangements: with family Additional living arrangements comments: Spiritual care concerns: No Anes - Eval Final PreProcedure Day of Procedure 08/10/25 07:22 Patient weight: normal Heart: regular rate and rhythm Lungs: clear to auscultation Airway: Mallampati scale class II Neurological: alert and oriented Last oral intake: >/= 8 hours ASA classification: III Emergent: no Anesthetic plan: proceed Anesthesia type and monitoring: general ETT and standard monitoring Results Review: All pre-operative results and documents have been reviewed as part of the pre- operative evaluation. Informed Consent: The patient's anesthetic plan and its attendant risks and benefits were discussed with the patient/family/POA. Questions were solicited and answers provided to the satisfaction of the patient/family/POA.
--- NOTE | 2025-08-10 07:23 | WPDHPUPDATE1 ---
History and Physical Update Update Date/Time: 08/10/25 07:23 History and Physical has been reviewed, including an updated exam of the patient. There are NO changes in the patient's condition. Risks, benefits, and alternatives have been discussed and questions answered. Patient agrees to proceed with procedure.
--- NOTE | 2025-08-10 07:38 | WPDURCON ---
Assessment and Plan Assessment and plan (1) Diverticulitis: Code(s): K57.92 - Diverticulitis of intestine, part unspecified, without perforation or abscess without bleeding Status: Acute (2) Sigmoid diverticulitis: Code(s): K57.32 - Diverticulitis of large intestine without perforation or abscess without bleeding Status: Chronic Plan Stent insertion for ureteral identification at time of hand access laparoscopic sigmoidectomy - risks, benefits, althernatives discussed. Pt agrees to proceed Urology Consult Note HPI Date Seen: 08/10/25 Requesting Physician: José Luis Anderson MD Primary Care Provider: SHIFT COMMANDER PHYSICIAN Consult Narrative Narrative: Casey Kearns is a 60 year old male scheduled for 08/10/2025 for hand access laparoscopic sigmoidectomy PMFSH Past Medical History Medical History Bronchiectasis History of pulmonary embolism History of pulmonary embolus (PE) History of DVT (deep vein thrombosis) Hypertension Surgical History Surgical History Hx of tonsillectomy Social History Social History Smoking status: Never smoker Alcohol intake: current Drinks per week: 21 Alcohol use details: BEER Substance use: never Substance use type: does not use Do You Feel Safe in your Home?: Yes Lack of Transportation: No Lack of Food: Never True Current Housing: I Have Housing Concerned About Future Housing: No Difficulty Paying Gas/Electric Bills: No Difficulty Paying for Meds: No Currently Unemployed: No Education: High School Diploma/GED Difficulty w/ Childcare or Family Care: No Living arrangements: with family Additional living arrangements comments: Spiritual care concerns: No Meds Home Medications and Allergies Home Medications ?Medication ?Instructions ?Recorded ?Confirmed ?Type losartan 100 1 tablet PO DAILY 02/01/25 08/10/25 History mg-hydrochlorothiazide 12.5 mg tablet tramadol 50 mg tablet 50 mg PO BID PRN pain 02/01/25 08/01/25 History umeclidinium 62.5 mcg-vilanterol 1 inh inhalation Q24H 04/07/25 08/01/25 Rx 25 mcg/actuation powdr for bronchiectasis 3 months #180 ea inhalation (Anoro Ellipta) albuterol sulfate 90 mcg/actuation 2 inh inhalation Q6H PRN shortness 04/26/25 08/01/25 Rx aerosol inhaler (Ventolin HFA) of breath 1 month #8.5 grams ciprofloxacin HCl 500 mg tablet 500 mg PO .COMPLEX #1 tablet 08/01/25 08/10/25 Rx metronidazole 500 mg tablet 500 mg PO .COMPLEX #3 tabs 08/01/25 08/10/25 Rx rivaroxaban 20 mg tablet (Xarelto) 20 mg PO DAILY 08/01/25 08/10/25 History Allergies Allergy/AdvReac Type Severity Reaction Status Date / Time No Known Allergies Allergy Verified 08/01/25 09:43 Vital Signs Vital Signs - 24 hr 08/10/25 06:39 Temperature 36.2 C L Pulse Rate 94 Blood Pressure 132/94 H Pulse Oximetry 98 Oxygen Delivery Room Air Exam Narrative: no acute distress, soft abdomen
--- NOTE | 2025-08-10 07:40 | WPDHPUPDATE1 ---
History and Physical Update Update Date/Time: 08/10/25 07:40 History and Physical has been reviewed, including an updated exam of the patient. There are NO changes in the patient's condition. Risks, benefits, and alternatives have been discussed and questions answered. Patient agrees to proceed with procedure.
[2025-08-10] MEDS: metroNIDAZOLE 500 MG/ISO 100ML 500 MG/100 ML BAG 100 MG IVPB (07:46)
[2025-08-10] MEDS: ceFAZolin 2 GM in SODIUM CHLORIDE 0.9% IV 50 ML 100 ML IVPB (07:46)
[2025-08-10] MEDS: BUPIVACAINE/EPINEPHRINE 0.5% 50 ML VIAL 40 ML INFILTRATE (08:10)
--- NOTE | 2025-08-10 08:24 | W.PM.PROC2 ---
Procedure Note - Detailed Date of Procedure 08/10/25 Pre-op Diagnosis Diverticulitis, Need for ureteral identification Post-op Diagnosis Same ( hypospadias with meatal stenosis) Procedure Performed urethral meatal dilation cystoscopy bilateral internal/ internal ureteral stent insertion Surgeon Celia Mayers MD Anesthesia General Description of Procedure informed consents obtained. Patient in the room. He was given preoperative IV antibiotics. He was induced anesthesia. He was prepped and draped in normal sterile fashion. The patient had a coronal hypospadias noted. The meatus was narrow at approximately 8 to 10 F. We then used urethral dilators in order to dilate the meatus serially up to 24 F. We then inserted a 22 F cystoscope without significant resistance. Inspection revealed normal urethra and prostate, bladder with mild trabeculation, bilateral orthotopic ureteral orifices. There were no tumors or stones noted. We then cannulated the left orifice with a wire and 5 F urethral catheter that advanced easily for approximately 25 cm. We performed identical procedure on the contralateral right side. A blue catheter was placed on the left and a right catheter on the right. The scope was then removed. A 16 F coude catheter was placed and stents were secured to the catheter. The case was then turned over to General surgery. Plan stent removal at conclusion of operation. Recommend Anand catheter removal for a void trial in 2 to 3 days. Pathology None sent Complications No immediate complications Condition Stable
--- NOTE | 2025-08-10 09:50 | S_PTH ---
PATIENT: Casey Kearns LOC: [id number] U#:[id number] AGE/SX: 60/M ROOM: 301 RE08/10/[address]: José Luis Anderson MD : 1965 BED: 01 DIS: 08/28/2025 SPEC #: [id number] RECD: 08/10/25 13:26 STATUS: SYDNEE REQ #: [id number] LAUAR: 08/10/25 09:[address]: José Luis Anderson DEPT: [facility] Surgical RECD BY: Alexy Ford ENTERED: 08/10/25 13:26 SP TYPE: Surgical OTHR DR: [employer] SUPERVISOR PHYSICIAN Jarrod Longoria MD Tissues: A - Col Seg Divertic Procedures: Hematoxylin and Eosin Stain Gross and Microscopic Level 5
--- NOTE | 2025-08-10 11:57 | W.PM.PROC2 ---
Procedure Note - Detailed Date of Procedure 08/10/25 Pre-op Diagnosis Diverticulitis Post-op Diagnosis Same Procedure Performed Hand access laparoscopic sigmoidectomy with stapled 29 EEA anastomosis Surgeon José Luis Anderson MD Civil Attorney Cecilia Olmos [facility] Anesthesia General and Local Indications Patient has had multiple episodes of recurrent diverticulitis since 2017. He wishes to have sigmoidectomy to avoid further episodes. He is taken to surgery now for that purpose. Findings Severe thickening and chronic inflammation in the sigmoid colon. No other significant findings. Description of Procedure Patient was taken to surgery and induced into general anesthesia. Per my request, Dr. Mayers, urologist, performed cystoscopy with urethral dilatation and placed a Anand catheter. He also placed bilateral ureteral stents. Patient was then prepped and draped for colon resection. He had rectal irrigation prior to prep and drape. He was in lithotomy in [facility]. Incision was started in the lower abdominal midline below the umbilicus. An 8 cm incision was made and dissection was carried down through the subcutaneous. The anterior rectus fascia was encountered this was divided as well. We then divided the peritoneum and entered the abdominal cavity. With a hand in the abdomen, I found that there were some omental adhesions to the anterior abdominal wall on the patient's right, likely from his previous open appendectomy. These were taken down with a combination of sharp and blunt dissection. I was then able to place the Ricky wound guard. The GelPort was placed as well. With a hand in the abdomen, I placed a 10 11 left sided upper abdominal trocar. We then insufflated the abdomen. A 12 mm midline trocar was then placed as well as a right-sided upper abdominal 10 11 mm port. Patient was placed in Trendelenburg with the left side elevated. There were numerous fairly dense adhesions to the abdominal wall in the sigmoid colon area where the diverticular disease was located. I divided the lateral peritoneal attachments to the upper sigmoid and descending colon. I was able to palpate the left ureter easily with the stent in place. It was carefully avoided. I then worked my way down to the denser adhesions of the sigmoid colon where the diverticular disease was located. These adhesions were taken down carefully with the LigaSure. The LigaSure was used for literally all dissection. Eventually his sigmoid was freed from the left lateral pelvic wall. I then continued the dissection mobilizing the sigmoid colon on its mesentery and palpating down to healthy, pliable, rectum. I then looked for normal proximal colon. This was found at the distal descending or upper sigmoid colon. I mobilized this area on to its mesentery. I then continued dividing the lateral peritoneal attachments to the entire descending colon nearly up to the splenic flexure. I mobilized the entire left colon on its mesentery. I then was able to divide the distal descending and upper sigmoid colon mesentery near its base. I continued dividing the left colon mesentery near its base up to the area of the splenic flexure. This gave plenty of colonic length. I returned to the area of the sigmoid colon, particularly the area which was involved diverticulitis. I divided the mesentery to the sigmoid colon down to the upper rectum. I then divided the mesentery from its base up to the distal sigmoid/upper rectum. I then went back to the distal descending colon, I dissected the area anticipated for the proximal anastomosis free of mesentery and other surrounding fatty tissue. There was minimal bleeding throughout. We then stopped insufflation and removed the GelPort. I was able to bring up the distal descending and sigmoid junction out of the hand access port. I used the TLC 75 to divide the proximal sigmoid from the distal descending colon. I then exposed the upper rectum. Using the contour stapler, I divided the sigmoid from the upper rectum. I reviewed the rectal staple line. All looked good. The sigmoid colon with the involved diverticular disease was then sent to pathology in formalin. I turned my attention to the distal descending colon. We carefully dissected free fatty tissue from the staple line. I used the disposable pursestring instrument and placed a pursestring suture on the end of the distal descending colon. I cut the stapled end and removed the pursestring suture device. The bowel was opened. It had gone in to pretty significant spasm. I gently dilated it with a P on clamp. I then further dilated it with a 25 EEA Sizer and then a 29 EEA Sizer. It dilated pretty well, I tried placing a 33 EEA. Unfortunately, while doing this, the posterior wall of the distal descending colon tore creating a 4-5 mm laceration. I initially tried to fix this with some 4-0 silk suture. It was not looking satisfactory. I then proceeded to dissect fatty tissue and mesentery from a more proximal area on the distal descending colon. I then removed the pursestring suture. I used the disposable pursestring device again and placed a pursestring suture on the new end of the distal descending colon. I cut off the excess or previous end of the descending colon and discarded it. From there, I was able to pass the 20 to EEA Sizer and then the 29 EEA Sizer. A 29 EEA was chosen. The anvil was placed in the opening to the colon and the pursestring suture was tied down. All looked good. The 1st assistant principal then went to the rectum. I was able to visualize the rectal stump while she was passing sizers and then the 29 EEA. Once in good position, we created the end-to-end anastomosis with the 29 EEA stapler. Two solid donuts were found. The anastomosis was placed under water. Leak test was performed and no bubbling at all was noted. I then went to the rectum and used the rigid proctoscope. I was able to visualize the entire anastomosis. It was quite intact and the bowel looked very healthy. Staple line was easily seen. The 1st assistant principal and I then changed back in to sterile operating attire. We suctioned away the irrigant and replaced the GelPort. The abdomen was insufflated again with CO2 and we reviewed the areas of dissection and the anastomosis again laparoscopically. All looked good. The ureter did not appear to be involved in the dissection. I did not see any signs of bleeding. The anastomosis appeared well vascularized and under no tension. I then used the Frederick cone and an 0 Vicryl suture. I closed the fascia at the 12 mm port in the upper midline. We then evacuated CO2 and removed the GelPort and Ricky. All laparotomy sponges were removed. The Vicryl suture was tied down to close the fascia at the 12 mm port. The other trocars were removed. The omentum was then positioned over the bowel directly under the hand access incision. The entire surgical team then changed gown and gloves and we switched to a clean closure tray. Once this transition had been made, the posterior rectus fascia or peritoneum was closed from the lower abdomen to the more cephalad aspect of the hand access incision. The midline fascia was closed with bidirectional running 1. PDS. Subcutaneous was loosely approximated with 3-0 Vicryl interrupted suture. Skin was also loosely approximated with subcuticular interrupted 4-0 Vicryl suture. A hand access incision was closed with running 4-0 Monocryl skin suture. All trocar sites were closed with 4-0 Monocryl skin suture. All wounds were dressed with Exofin surgical adhesive. The ureteral stents were removed but the Anand catheter was left in place as requested by Dr. Mayers. The patient was then awakened and extubated. He was taken to recovery in good condition. Sponge needle counts were correct x2. Estimated Blood Loss -100 Drains Yes (Anand catheter) Packing No Pathology Yes (Sigmoid colon with diverticulitis) Complications None Condition Stable Disposition PACU [facility] Billing Surgery - Charge Forward: Surgery Billing (Hand access laparoscopic sigmoid colon resection with anastomosis)
--- NOTE | 2025-08-10 13:34 | ADMGEN ---
This patient, Casey Asia Kearns, was admitted to -. Patient/family oriented to hospital policies and general routines including ID bracelet, bed and alarms, visiting hours, pain management, procedures, bathroom and other care routines, personal items, smoking policy, room service/diet, and visiting hours. Information on how to activate the Rapid Response Team has been discussed. Patient/Family are encouraged to report perceived risks to care and to ask questions if they do not understand what they are told or what they should do. Report recieved from [facility]
[2025-08-10] MEDS: LACTATED RINGERS 1,000 ML 100 ML IV CONT (13:56)
[2025-08-10] MEDS: MORPHINE SULFATE (*CRX) 4 MG/ML INJ 2 MG IV PUSH ×2 (13:57→21:06)
[2025-08-10] MEDS: MORPHINE SULFATE (*CRX) 4 MG/ML INJ IV PUSH (16:05)
[2025-08-10] MEDS: SODIUM CHLORIDE 0.9% IV 1,000 ML 999 ML IV CONT (16:30)
[2025-08-10] MEDS: FAMOTIDINE 20 MG/2 ML VIAL IV PUSH (20:51)
[2025-08-11] MEDS: MORPHINE SULFATE (*CRX) 4 MG/ML INJ 2 MG IV PUSH ×2 (00:27→19:27)
[2025-08-11] MEDS: LACTATED RINGERS 1,000 ML 100 ML IV CONT (00:48)
[2025-08-11 02:49] VITALS: BP 130/71; PULSE 89; RESP 16; TEMP 36.4; O2SAT 95
[2025-08-11] MEDS: MORPHINE SULFATE (*CRX) 4 MG/ML INJ IV PUSH ×4 (04:40→16:02)
[2025-08-11 05:53] LABS: Hematocrit 44.3 % (42.0-52.0); Hemoglobin 15.0 g/dL (14.0-18.0); Mean Corpuscular HGB Conc 33.9 g/dl (32-36); Mean Corpuscular Hemoglobin 33.1 pg (26-34); Mean Corpuscular Volume 97.8 fl (80-100); Platelet Count Result 183 k/mm3 (150-375); Red Blood Count 4.53 M/mm3 (4.6-6.20); White Blood Count 12.2 K/mm3 (4.5-10.0)
[2025-08-11 06:02] LABS: Anion Gap 8 mmol/L (4-12); Blood Urea Nitrogen 13 mg/dL (9-20); Calcium 7.7 mg/dL (8.4-10.2); Carbon Dioxide 22 mmol/L (22-30); Chloride 99 mmol/L (98-107); Estimated CRCL calculation 56 ml/min; Estimated Glomerular Filt Rate 57; Glucose 114 mg/dL (65-110); Potassium 3.7 mmol/L (3.4-5.0); Sodium 129 mmol/L (137-145)
[2025-08-11] MEDS: UMECLIDINIUM/VILANTEROL 62.5-25 MCG ELLIPTA 1 PUFF INHALATION (08:21)
[2025-08-11 08:23] VITALS: PULSE 87; RESP 18
[2025-08-11] MEDS: FAMOTIDINE 20 MG/2 ML VIAL IV PUSH ×2 (09:18→21:45)
[2025-08-11] MEDS: ENOXAPARIN 40 MG/0.4 ML SYRINGE SUB-Q (09:18)
[2025-08-11] MEDS: KCL 20MEQ/0.9% SOD CHL 1,000 ML 80 ML IV CONT ×2 (09:29→23:58)
[2025-08-11] MEDS: LOSARTAN POTASSIUM 100 MG TABLET PO (09:36)
--- NOTE | 2025-08-11 10:32 | P.PNGS_ITS ---
Progress Note: A&P Assessment and Plan (1) Sigmoid diverticulitis: Code(s): K57.32 - Diverticulitis of large intestine without perforation or abscess without bleeding Status: Chronic Assessment and Plan: * POD1 s/p hand assisted laparoscopic sigmoidectomy. Patient having some abdominal pain as expected. He has not yet gotten out of bed. Encouraged ambulation today. * No bowel function yet. Continue clear liquid diet. Will consider advancing if patient continues to tolerate clears. (2) Chronic anticoagulation: Code(s): Z79.01 - care home (current) use of anticoagulants Status: Chronic Assessment and Plan: Continue to hold Xarelto today. (3) History of pulmonary embolism: Code(s): Z86.711 - Personal history of pulmonary embolism Status: Chronic (4) Hx of urethral stricture: Code(s): Z87.448 - Personal history of other diseases of urinary system Status: Chronic Assessment and Plan: Urology has been consulted for placement of ureteral stents as well as placement of Anand catheter due to his urethral stricture. Continue to monitor Anand catheter today. Will consider removing catheter tomorrow or later into the weekend. (5) Hypertension: Qualifiers: Hypertension type: primary hypertension Qualified Code(s): I10 - Essential (primary) hypertension Code(s): I10 - Essential (primary) hypertension Status: Chronic (6) Bronchiectasis: Qualifiers: Bronchiectasis type: uncomplicated Qualified Code(s): J47.9 - Bronchiectasis, uncomplicated Code(s): J47.9 - Bronchiectasis, uncomplicated Status: Chronic Assessment and Plan: Chronic and stable per preoperative pulmonary evaluation. Plan Discussed patient's case and plan of care with Dr. Anderson. Subjective Subjective Date/Time Seen: 08/11/25 10:32 Post Op day: 1 (Hand access laparoscopic sigmoidectomy with stapled 29 EEA anastomosis) Patient reports: no new complaints, still having pain, tolerating liquids well (Clears), no flatus, no bowel movement and afebrile Interval history: Patient doing well. Still having some abdominal pain. States that pain medication helps. Also complains of some left leg pain. WBC 12.2, likely just reactive from surgery. Exam Const: General: comfortable and no acute distress GI: Inspection: distended GI Palp: Yes Soft to palpation, Yes Tenderness to palpation present (GI) (diffusely across lower abdomen) and No Guarding due to p alpation present (GI) Auscultation: Hypoactive bowel sounds present Other: Incisions are clean and dry with glue intact. Bruising to incisions as expected. Skin: General skin exam: normal color and no rashes or lesions noted Extrem: General: normal to inspection Psych: Mental Status: mental status grossly normal Objective Data Vital Signs Vital Signs: Vital Signs - 24 hr 08/10/25 11:38 08/10/25 11:50 08/10/25 12:02 Temperature 97.8 F Pulse Rate 73 71 80 Respiratory Rate 12 12 18 Blood Pressure 114/69 113/71 116/78 Pulse Oximetry 97 97 97 Oxygen Delivery Simple Face Mask Simple Face Mask Simple Face Mask Oxygen Flow Rate 8 8 8 08/10/25 12:05 08/10/25 12:20 08/10/25 12:35 Temperature Pulse Rate 81 79 74 Respiratory Rate 14 14 14 Blood Pressure 126/74 130/77 122/67 Pulse Oximetry 98 94 93 Oxygen Delivery Simple Face Mask Room Air Room Air Oxygen Flow Rate 8 08/10/25 12:50 08/10/25 13:30 08/10/25 13:45 Temperature 97.4 F L 96.6 F L Pulse Rate 75 80 71 Respiratory Rate 12 17 16 Blood Pressure 124/80 133/71 129/80 Pulse Oximetry 96 95 93 Oxygen Delivery Room Air Oxygen Flow Rate 08/10/25 14:15 08/10/25 15:15 08/10/25 18:49 Temperature 96.8 F L 96.8 F L 97.4 F L Pulse Rate 71 73 80 Respiratory Rate 16 18 16 Blood Pressure 123/81 112/72 122/72 Pulse Oximetry 93 96 95 Oxygen Delivery Oxygen Flow Rate 08/10/25 20:51 08/10/25 22:49 08/11/25 02:49 Temperature 97.3 F L 97.5 F L Pulse Rate 86 89 Respiratory Rate 16 16 Blood Pressure 107/71 130/71 Pulse Oximetry 94 95 Oxygen Delivery Room Air Oxygen Flow Rate 08/11/25 08:23 Temperature Pulse Rate 87 Respiratory Rate 18 Blood Pressure Pulse Oximetry Oxygen Delivery Oxygen Flow Rate Intake/Output Intake/Output: Intake & Output 08/08/25 08/09/25 08/10/25 08/11/25 23:59 23:59 23:59 23:59 Intake Total 2668 644 Output Total 100 1050 Balance 0483 -359 Meds/Results Medications: Active Medications Generic Name Dose Route Start Last Admin Trade Name Freq PRN Reason Stop Dose Admin Albuterol 2 puff 08/10/25 13:04 Albuterol Sulfate (*Sp) Aerosol 1 Puff INHALATION Q6H PRN Shortness Of Breath Alvimopan 12 mg 08/11/25 21:00 Alvimopan 12 Mg Capsule PO 08/18/25 20:59 Q12HR ANNETTE Enoxaparin Sodium 40 mg 08/11/25 09:00 08/11/25 09:18 Enoxaparin 40 Mg/0.4 Ml Syringe SUB-Q 40 mg DAILY ANNETTE Administration Famotidine 20 mg 08/10/25 21:00 08/11/25 09:18 Famotidine 20 Mg/2 Ml Vial IV PUSH 20 mg Q12HR ANNETTE Administration Hydrochlorothiazide 12.5 mg 08/11/25 09:00 08/11/25 09:18 Hydrochlorothiazide 12.5 Mg Capsule PO 12.5 mg QAM ANNETTE Administration Ibuprofen 800 mg in 200 mls @ 400 mls/hr 08/10/25 13:04 Caldolor 800 Mg/200 Ml IVPB Q6H PRN Breakthrough Pain Rated 1-3 or NPO Potassium Chloride/Sodium Chloride 1,000 mls @ 80 mls/hr 08/11/25 08:00 08/11/25 09:29 Kcl 20 Meq/Ns IV CONT 80 mls/hr .[id number] ANNETTE Administration Losartan Potassium 100 mg 08/11/25 09:00 08/11/25 09:36 Losartan Potassium 100 Mg Tablet PO 100 mg DAILY ANNETTE Administration Morphine Sulfate 2 mg 08/10/25 13:04 08/11/25 00:27 Morphine Sulfate (*Crx) 4 Mg/Ml Inj IV PUSH 2 mg Q2H PRN Administration Breakthrough Pain Rated 4-6 or NPO Morphine Sulfate 4 mg 08/10/25 13:04 08/11/25 09:28 Morphine Sulfate (*Crx) 4 Mg/Ml Inj IV PUSH 4 mg Q2H PRN Administration Breakthrough Pain Rated 7-10 or NPO Naloxone HCl 0.1 mg 08/10/25 13:04 Naloxone Hcl 0.4 Mg/Ml Vial IV PUSH Q2M PRN Opiate Reversal Ondansetron HCl 4 mg 08/10/25 13:04 Ondansetron Inj 4 Mg/2 Ml Vial IV PUSH Q4H PRN Nausea And Vomiting Oxycodone/Acetaminophen 1 tablet 08/10/25 13:04 Oxycodone/Acetaminophen (*Crx) 5-325 Mg Tablet PO Q4H PRN Pain Rated 4-6 Oxycodone/Acetaminophen 1 tab 08/10/25 13:04 Oxycodone/Acetaminophen (*Crx) 10-325 Mg Tablet PO Q6H PRN Pain Rated 7-10 Tramadol HCl 50 mg 08/10/25 13:04 Tramadol Hcl (*Crx) 50 Mg Tablet PO Q4H PRN Pain Rated 1-3 Trazodone HCl 50 mg 08/10/25 13:04 Trazodone Hcl 50 Mg Tablet PO HS PRN Insomnia Umeclidinium/Vilanterol 1 puff 08/10/25 14:00 08/11/25 08:21 Umeclidinium/Vilanterol 62.5-25 Mcg Ellipta INHALATION 1 puff DAILY ANNETTE Administration Labs Labs: Laboratory Results - last 24 hr 08/11/25 05:18 WBC 12.2 H RBC 4.53 L Hgb 15.0 D Hct 44.3 MCV 97.8 MCH 33.1 MCHC 33.9 RDW 13.5 Plt Count 183 MPV 8.0 Sodium 129 L Potassium 3.7 Chloride 99 Carbon Dioxide 22 Anion Gap 8 BUN 13 Creatinine 1.28 Estim Creat Clear Calc 56 Estimated GFR 57 L Glucose 114 H Calcium 7.7 L
[2025-08-11 10:49] VITALS: BP 124/74; PULSE 76; RESP 18; TEMP 36.5; O2SAT 93
[2025-08-11 14:00] VITALS: BP 111/71; PULSE 89; RESP 19; TEMP 36.6; O2SAT 92
[2025-08-11 14:49] VITALS: BP 115/76; PULSE 84; RESP 18; TEMP 36.4; O2SAT 94
[2025-08-11] MEDS: oxyCODONE/ACETAMINOPHEN (*CRX) 10-325 MG TABLET 1 TAB PO (15:28)
[2025-08-11 19:49] VITALS: BP 134/77; PULSE 106; RESP 16; TEMP 36.9; O2SAT 92
[2025-08-11] MEDS: ALVIMOPAN 12 MG CAPSULE PO (21:42)
[2025-08-12] MEDS: MORPHINE SULFATE (*CRX) 4 MG/ML INJ 2 MG IV PUSH (02:00)
[2025-08-12 04:15] VITALS: BP 147/84; PULSE 96; RESP 24; TEMP 36.3; O2SAT 93
[2025-08-12] MEDS: MORPHINE SULFATE (*CRX) 4 MG/ML INJ IV PUSH (05:25)
--- NOTE | 2025-08-12 06:36 | PC.NURSE ---
pt had a quarter size blood clot from his rectum at 05:00. no complaints of pain, no active bleeding from rectum.
[2025-08-12 06:47] LABS: Hematocrit 44.5 % (42.0-52.0); Hemoglobin 14.8 g/dL (14.0-18.0); Mean Corpuscular HGB Conc 33.3 g/dl (32-36); Mean Corpuscular Hemoglobin 33.0 pg (26-34); Mean Corpuscular Volume 99.1 fl (80-100); Platelet Count Result 192 k/mm3 (150-375); Red Blood Count 4.49 M/mm3 (4.6-6.20); White Blood Count 14.2 K/mm3 (4.5-10.0)
[2025-08-12 07:15] LABS: Anion Gap 8 mmol/L (4-12); Blood Urea Nitrogen 10 mg/dL (9-20); Calcium 8.0 mg/dL (8.4-10.2); Carbon Dioxide 20 mmol/L (22-30); Chloride 101 mmol/L (98-107); Estimated CRCL calculation 69 ml/min; Estimated Glomerular Filt Rate > 60; Glucose 149 mg/dL (65-110); Potassium 3.6 mmol/L (3.4-5.0); Sodium 129 mmol/L (137-145)
[2025-08-12 08:42] LABS: CRP 26.8 mg/dL (<1.0)
[2025-08-12] MEDS: UMECLIDINIUM/VILANTEROL 62.5-25 MCG ELLIPTA 1 PUFF INHALATION (09:09)
[2025-08-12 10:30] VITALS: BP 145/85; O2SAT 94
[2025-08-12] MEDS: ALVIMOPAN 12 MG CAPSULE PO (10:30)
[2025-08-12] MEDS: ENOXAPARIN 40 MG/0.4 ML SYRINGE SUB-Q (10:30)
[2025-08-12] MEDS: LOSARTAN POTASSIUM 100 MG TABLET PO (10:30)
[2025-08-12] MEDS: FAMOTIDINE 20 MG/2 ML VIAL IV PUSH ×2 (10:31→21:22)
[2025-08-12] MEDS: oxyCODONE/ACETAMINOPHEN (*CRX) 5-325 MG TABLET 1 TABLET PO (10:33)
--- NOTE | 2025-08-12 11:42 | WPDUROPN2 ---
Progress Note: A&P Assessment and Plan (1) Urethral stricture: Code(s): N35.919 - Unspecified urethral stricture, male, unspecified site Status: Acute Plan POD2 urethral meatal dilation, cystoscopy, bilateral internal/ internal ureteral stent insertion - discontinue altamirano today. - Will follow peripherally. Contact us for any further needs. Subjective Subjective Date/Time Seen: 08/12/25 11:42 Interval history: POD2 urethral meatal dilation, cystoscopy, bilateral internal/ internal ureteral stent insertion ureteral identification at time of hand access laparoscopic sigmoidectomy patient doing well. ready to have altamirano out. urine looks good Review of Systems Review of Systems: per hpi Exam Narrative: no acute distress Const: General: comfortable HENMT: Face/Nose/Sinus: Normal nares present Eyes: General: appearance normal, both eyes and all related structures Resp: Effort & Inspection: normal respiratory effort Skin: General skin exam: normal color Neuro: Speech: normal speech Objective Data Vital Signs Vital Signs: Vital Signs - 24 hr 08/11/25 14:00 08/11/25 14:49 08/11/25 19:49 Temperature 97.8 F 97.6 F 98.5 F Pulse Rate 89 84 106 H Respiratory Rate 19 18 16 Blood Pressure 111/71 115/76 134/77 Pulse Oximetry 92 94 92 Oxygen Delivery 08/11/25 21:42 08/12/25 04:15 Temperature 97.4 F L Pulse Rate 96 Respiratory Rate 24 H Blood Pressure 147/84 H Pulse Oximetry 93 Oxygen Delivery Room Air Intake/Output Intake/Output: Intake & Output 08/09/25 08/10/25 08/11/25 08/12/25 23:59 23:59 23:59 23:59 Intake Total 2668 2324 650 Output Total 100 1350 1075 Balance 2568 974 -425 Meds/Results Medications: Active Medications Generic Name Dose Route Start Last Admin Trade Name Freq PRN Reason Stop Dose Admin Albuterol 2 puff 08/10/25 13:04 Albuterol Sulfate (*Sp) Aerosol 1 Puff INHALATION Q6H PRN Shortness Of Breath Alvimopan 12 mg 08/11/25 21:00 08/12/25 10:30 Alvimopan 12 Mg Capsule PO 08/18/25 20:59 12 mg Q12HR ANNETTE Administration Enoxaparin Sodium 40 mg 08/11/25 09:00 08/12/25 10:30 Enoxaparin 40 Mg/0.4 Ml Syringe SUB-Q 40 mg DAILY ANNETTE Administration Famotidine 20 mg 08/10/25 21:00 08/12/25 10:31 Famotidine 20 Mg/2 Ml Vial IV PUSH 20 mg Q12HR ANNETTE Administration Hydrochlorothiazide 12.5 mg 08/11/25 09:00 08/12/25 10:31 Hydrochlorothiazide 12.5 Mg Capsule PO 12.5 mg QAM ANNETTE Administration Ibuprofen 800 mg in 200 mls @ 400 mls/hr 08/10/25 13:04 Caldolor 800 Mg/200 Ml IVPB Q6H PRN Breakthrough Pain Rated 1-3 or NPO Potassium Chloride/Sodium Chloride 1,000 mls @ 80 mls/hr 08/11/25 08:00 08/11/25 23:58 Kcl 20 Meq/Ns IV CONT 80 mls/hr .[id number] ANNETTE Administration Losartan Potassium 100 mg 08/11/25 09:00 08/12/25 10:30 Losartan Potassium 100 Mg Tablet PO 100 mg DAILY ANNETTE Administration Morphine Sulfate 2 mg 08/10/25 13:04 08/12/25 02:00 Morphine Sulfate (*Crx) 4 Mg/Ml Inj IV PUSH 2 mg Q2H PRN Administration Breakthrough Pain Rated 4-6 or NPO Morphine Sulfate 4 mg 08/10/25 13:04 08/12/25 05:25 Morphine Sulfate (*Crx) 4 Mg/Ml Inj IV PUSH 4 mg Q2H PRN Administration Breakthrough Pain Rated 7-10 or NPO Naloxone HCl 0.1 mg 08/10/25 13:04 Naloxone Hcl 0.4 Mg/Ml Vial IV PUSH Q2M PRN Opiate Reversal Ondansetron HCl 4 mg 08/10/25 13:04 Ondansetron Inj 4 Mg/2 Ml Vial IV PUSH Q4H PRN Nausea And Vomiting Oxycodone/Acetaminophen 1 tablet 08/10/25 13:04 08/12/25 10:33 Oxycodone/Acetaminophen (*Crx) 5-325 Mg Tablet PO 1 tablet Q4H PRN Administration Pain Rated 4-6 Oxycodone/Acetaminophen 1 tab 08/10/25 13:04 08/11/25 15:28 Oxycodone/Acetaminophen (*Crx) 10-325 Mg Tablet PO 1 tab Q6H PRN Administration Pain Rated 7-10 Tramadol HCl 50 mg 08/10/25 13:04 Tramadol Hcl (*Crx) 50 Mg Tablet PO Q4H PRN Pain Rated 1-3 Trazodone HCl 50 mg 08/10/25 13:04 Trazodone Hcl 50 Mg Tablet PO HS PRN Insomnia Umeclidinium/Vilanterol 1 puff 08/10/25 14:00 08/12/25 09:09 Umeclidinium/Vilanterol 62.5-25 Mcg Ellipta INHALATION 1 puff DAILY ANNETTE Administration Radiology Results: ITS Impressions Abdomen/Pelvis CT 08/12/25 08:47 IMPRESSION: 1. Intra-abdominal free air which is possibly postoperative.Viscus perforation is difficult to exclude. There is complex fluid within the pelvis with small amount of hemoperitoneum. Rim-enhancing fluid collections are noted suspicious for early abscess. 2. Small bowel obstruction detailed above Labs Labs: Laboratory Results - last 24 hr 08/12/25 06:10 WBC 14.2 H RBC 4.49 L Hgb 14.8 Hct 44.5 MCV 99.1 MCH 33.0 MCHC 33.3 RDW 13.6 Plt Count 192 MPV 8.1 Sodium 129 L Potassium 3.6 Chloride 101 Carbon Dioxide 20 L Anion Gap 8 BUN 10 Creatinine 1.03 Estim Creat Clear Calc 69 Estimated GFR > 60 Glucose 149 H Calcium 8.0 L C-Reactive Protein 26.8 H
[2025-08-12] MEDS: PIPERACILLIN/TAZOBACTAM SOD 3.375 GM in SODIUM CHLORIDE 0.9% IV 50 ML 100 ML IVPB ×3 (12:30→23:45)
[2025-08-12] MEDS: KCL 40 MEQ/D5/0.9% SOD CHL 1,000 ML 125 ML IV CONT (13:21)
--- NOTE | 2025-08-12 13:34 | P.PNGS_ITS ---
Progress Note: A&P Assessment and Plan (1) Status post colon resection: Code(s): Z90.49 - Acquired absence of other specified parts of digestive tract Status: Acute Assessment and Plan: Patient having more pain today than expected. He was also distended [place] [id number]. He remains pretty tender with no bowel sounds. CT scan was done and appears to have ileus. The fluid collections in the pelvis are more likely to be irrigation fluid and some residual blood. Anastomosis looks intact. I will go ahead and place a nasogastric tube. I will start him on Zosyn antibiotics and consult the hospitalist for perioperative medical management. He is on Lovenox but his Xarelto is still on hold. Continue to monitor closely with exam, labs, plain films of the abdomen. (2) Sigmoid diverticulitis: Code(s): K57.32 - Diverticulitis of large intestine without perforation or abscess without bleeding Status: Chronic Assessment and Plan: Pathology consistent with diverticulitis (3) Urethral stricture: Qualifiers: Urethral stricture type: unspecified stricture type Urethral stricture sex-location: male urethra-unspecified Qualified Code(s): N35.919 - Unspecified urethral stricture, male, unspecified site Code(s): N35.919 - Unspecified urethral stricture, male, unspecified site Status: Chronic Assessment and Plan: Urology has removed his Anand catheter today. Urine no longer bloody. Patient happy to have the catheter out. (4) Chronic anticoagulation: Code(s): Z79.01 - jail (current) use of anticoagulants Status: Chronic Assessment and Plan: Xarelto still on hold (5) History of pulmonary embolism: Code(s): Z86.711 - Personal history of pulmonary embolism Status: Chronic (6) Bronchiectasis: Qualifiers: Bronchiectasis type: uncomplicated Qualified Code(s): J47.9 - Bronchiectasis, uncomplicated Code(s): J47.9 - Bronchiectasis, uncomplicated Status: Chronic Assessment and Plan: Inhalers ordered Subjective Subjective Date/Time Seen: 08/12/25 13:34 Post Op day: 2 Patient reports: still having pain (Mostly just above the hand access port wound.), bowel movement (Small liquid stool x1), blood in stool and afebrile Interval history: Still having more abdominal pain than I would expect. He does take tramadol chronically but not sure if this pain is opioid related. Exam Const: General: cooperative, comfortable, alert and awake; No acute distress Orientation/consciousness: patient oriented x3 and No confusion GI: Inspection: abdominal wall ecchymosis (Bruising around hand access incision, no hematoma), distended and incision (All incisions dry, intact) GI Palp: Yes abdominal tenderness (Diffuse but worst in the lower abdomen), Yes Firmness to palpation present (GI), Yes Tenderness to palpation present (GI), Yes Guarding due to palpation present (GI), No Hernia present and No Palpable mass present Auscultation: absent bowel sounds Objective Data Vital Signs Vital Signs: Vital Signs - 24 hr 08/11/25 14:00 08/11/25 14:49 08/11/25 19:49 Temperature 36.6 C 36.4 C 36.9 C Pulse Rate 89 84 106 H Respiratory Rate 19 18 16 Blood Pressure 111/71 115/76 134/77 Pulse Oximetry 92 94 92 Oxygen Delivery 08/11/25 21:42 08/12/25 04:15 08/12/25 08:00 Temperature 36.3 C L Pulse Rate 96 Respiratory Rate 24 H Blood Pressure 147/84 H Pulse Oximetry 93 Oxygen Delivery Room Air Room Air Intake/Output Intake/Output: Intake & Output 08/09/25 08/10/25 08/11/25 08/12/25 23:59 23:59 23:59 23:59 Intake Total 2668 2324 650 Output Total 100 1350 1075 Balance 2568 974 -425 Meds/Results Medications: Active Medications Generic Name Dose Route Start Last Admin Trade Name Freq PRN Reason Stop Dose Admin Albuterol 2 puff 08/10/25 13:04 Albuterol Sulfate (*Sp) Aerosol 1 Puff INHALATION Q6H PRN Shortness Of Breath Alvimopan 12 mg 08/11/25 21:00 08/12/25 10:30 Alvimopan 12 Mg Capsule PO 08/18/25 20:59 12 mg On Hold: 08/12/25 11:48 Q12HR ANNETTE Administration Enoxaparin Sodium 40 mg 08/11/25 09:00 08/12/25 10:30 Enoxaparin 40 Mg/0.4 Ml Syringe SUB-Q 40 mg DAILY ANNETTE Administration Famotidine 20 mg 08/10/25 21:00 08/12/25 10:31 Famotidine 20 Mg/2 Ml Vial IV PUSH 20 mg Q12HR ANNETTE Administration Hydrochlorothiazide 12.5 mg 08/11/25 09:00 08/12/25 10:31 Hydrochlorothiazide 12.5 Mg Capsule PO 12.5 mg On Hold: 08/12/25 11:48 QAM ANNETTE Administration Ibuprofen 800 mg in 200 mls @ 400 mls/hr 08/10/25 13:04 Caldolor 800 Mg/200 Ml IVPB Q6H PRN Breakthrough Pain Rated 1-3 or NPO Piperacillin Sod/Tazobactam 50 mls @ 100 mls/hr 08/12/25 12:00 08/12/25 12:30 Sod 3.375 gm/ Sodium Chloride IVPB 100 mls/hr Q6H ANNETTE Administration Potassium Chloride/Dextrose/Sod Cl 1,000 mls @ 125 mls/hr 08/12/25 12:00 08/12/25 13:21 Kcl 40 Meq/D5ns IV CONT 125 mls/hr .Q8H ANNETTE Administration Losartan Potassium 100 mg 08/11/25 09:00 08/12/25 10:30 Losartan Potassium 100 Mg Tablet PO 100 mg On Hold: 08/12/25 11:48 DAILY ANNETTE Administration Morphine Sulfate 2 mg 08/10/25 13:04 08/12/25 02:00 Morphine Sulfate (*Crx) 4 Mg/Ml Inj IV PUSH 2 mg Q2H PRN Administration Breakthrough Pain Rated 4-6 or NPO Morphine Sulfate 4 mg 08/10/25 13:04 08/12/25 05:25 Morphine Sulfate (*Crx) 4 Mg/Ml Inj IV PUSH 4 mg Q2H PRN Administration Breakthrough Pain Rated 7-10 or NPO Naloxone HCl 0.1 mg 08/10/25 13:04 Naloxone Hcl 0.4 Mg/Ml Vial IV PUSH Q2M PRN Opiate Reversal Ondansetron HCl 4 mg 08/10/25 13:04 Ondansetron Inj 4 Mg/2 Ml Vial IV PUSH Q4H PRN Nausea And Vomiting Oxycodone/Acetaminophen 1 tablet 08/10/25 13:04 08/12/25 10:33 Oxycodone/Acetaminophen (*Crx) 5-325 Mg Tablet PO 1 tablet On Hold: 08/12/25 11:49 Q4H PRN Administration Pain Rated 4-6 Oxycodone/Acetaminophen 1 tab 08/10/25 13:04 08/11/25 15:28 Oxycodone/Acetaminophen (*Crx) 10-325 Mg Tablet PO 1 tab On Hold: 08/12/25 11:49 Q6H PRN Administration Pain Rated 7-10 Tramadol HCl 50 mg 08/10/25 13:04 Tramadol Hcl (*Crx) 50 Mg Tablet PO On Hold: 08/12/25 11:49 Q4H PRN Pain Rated 1-3 Trazodone HCl 50 mg 08/10/25 13:04 Trazodone Hcl 50 Mg Tablet PO On Hold: 08/12/25 11:49 HS PRN Insomnia Umeclidinium/Vilanterol 1 puff 08/10/25 14:00 08/12/25 09:09 Umeclidinium/Vilanterol 62.5-25 Mcg Ellipta INHALATION 1 puff DAILY ANNETTE Administration Radiology Results: ITS Impressions Abdomen/Pelvis CT 08/12/25 08:47 IMPRESSION: 1. Intra-abdominal free air which is possibly postoperative.Viscus perforation is difficult to exclude. There is complex fluid within the pelvis with small amount of hemoperitoneum. Rim-enhancing fluid collections are noted suspicious for early abscess. 2. Small bowel obstruction detailed above Labs Labs: Laboratory Results - last 24 hr 08/12/25 06:10 WBC 14.2 H RBC 4.49 L Hgb 14.8 Hct 44.5 MCV 99.1 MCH 33.0 MCHC 33.3 RDW 13.6 Plt Count 192 MPV 8.1 Sodium 129 L Potassium 3.6 Chloride 101 Carbon Dioxide 20 L Anion Gap 8 BUN 10 Creatinine 1.03 Estim Creat Clear Calc 69 Estimated GFR > 60 Glucose 149 H Calcium 8.0 L C-Reactive Protein 26.8 H white blood cell count higher today and CRP 26.8.; H&H remains normal sodium remains low and potassium is lower limit normal Creatinine and creatinine clearance are improved. Imaging Attestation: I personally reviewed and interpreted this imaging study as follows: (CT scan abdomen and pelvis done this morning) My impression: I reviewed the patient's CT scan with Dr. Earl. The radiologist reading suggests abscesses and a small bowel obstruction. This would be very unusual in a case that had little difficulty and is only 2 days from surgery. After my review with Dr. Earl, I feel it is more likely that these collections are irrigation fluid and some mixture of blood and tissue fluid. The anastomosis itself looks good. There was no air adjacent to the anastomosis, no evidence of anastomotic breakdown. The small bowel is quite dilated and there was a lot of fluid in the stomach. This is more likely an ileus than a small-bowel obstruction. Radiologist's impression: FINDINGS: CT abdomen: LUNG BASES: The lung bases demonstrate basilar areas of atelectasis with small infiltrates. LIVER: Mild hepatic steatosis. Portal vein is patent. There is no intrahepatic biliary duct dilatation. SPLEEN: Unremarkable. KIDNEYS: Right Kidney: Unremarkable. No calculi. No hydronephrosis. Left Kidney: Unremarkable. No calculi. No hydronephrosis ADRENAL GLANDS: Unremarkable. PANCREAS: Unremarkable. GALLBLADDER/BILIARY: Gallbladder is contracted. STOMACH AND ESOPHAGUS: Visualized stomach and esophagus within normal limits. BOWEL/MESENTERY: Postsurgical changes noted in the sigmoid colon. There are multiple dilated loops of small bowel the largest measuring 4.5 cm with decompressed small bowel loops in the pelvis. ADENOPATHY/RETROPERITONEUM: No lymphadenopathy. AORTA/VASCULATURE: Normal caliber aorta. FREE FLUID OR FREE AIR: There is intra-abdominal free air identified. Small amount of free fluid noted in the pelvis, some of the fluid appears hyperdense..There are rim-enhancing fluid collections noted the largest in the left lower quadrant measuring 6.[address] pelvis: SOLID ORGANS/REPRODUCTIVE: Unremarkable. BLADDER: Within normal limits. OSSEOUS STRUCTURES: No acute osseous abnormality.No suspicious lesions. OVERLYING SOFT TISSUES: There is a catheter within the bladder, the bladder is decompressed.
[2025-08-12 14:00] VITALS: BP 125/74; PULSE 129; RESP 19; TEMP 36.3; O2SAT 92
--- NOTE | 2025-08-12 14:59 | P.CONIM_ITS ---
Assessment and Plan Assessment and plan (1) Status post colon resection: Code(s): Z90.49 - Acquired absence of other specified parts of digestive tract Status: Acute Assessment and Plan: Patient underwent hand assisted lap sigmoidectomy with anastomosis on 08/10 due to frequent admissions for diverticulitis. -pain control per surgery with ibuprofen, morphine, oxycodone -Entereg per surgery -continue to encourage incentive spirometry use. CT demonstrates atelectasis at the lung bases with small infiltrates -teach patient pillow splinting (2) Obstruction of small intestine after surgical procedure: Code(s): K91.30 - Postprocedural intestinal obstruction, unspecified as to partial versus complete Status: Acute Assessment and Plan: SBO versus postop ileus. CT reads intra-abdominal free air (likely postoperative), complex fluid within the pelvis with small amount of hemoperitoneum. Rim enhancing fluid collections are noted and suspicious for early abscess. Multiple dilated loops of small bowel with decompressed small bowel loops in the pelvis. Spent a long time educating patient on the importance of ambulation after bowel surgery due to the risks of postoperative ileus and prolonged hospital stay. Patient states he has only been ambulating in his room to the bathroom. I strongly encouraged him to walk the halls explained the effects of surgery and opioids on his bowels and the importance of ambulation. Patient states he walks roughly 14,000 steps per day for his job. -NGT placed today-keep to low intermittent suction -clamp NG tube for ambulation -continue encouraging patient to ambulate in the halls -continue D5 NS with 40 of K @ 125 -1 L NS bolus ordered due to tachycardia -Zosyn started on 08/12 -Chloraseptic spray for NGT discomfort (3) Bloody stool: Code(s): K92.1 - Melena Status: Acute Assessment and Plan: Had 1 episode of bright red blood per rectum post first ambulation in the [facility] on 08/12. Patient denies shortness of breath or dizziness. -repeat hemoglobin 16.0 -continue to monitor (4) History of pulmonary embolism: Code(s): Z86.711 - Personal history of pulmonary embolism Status: Chronic Assessment and Plan: Patient with history of PE and DVT. On chronic Xarelto at home -continue to hold Xarelto -continue Lovenox (5) Hypertension: Qualifiers: Hypertension type: primary hypertension Qualified Code(s): I10 - Essential (primary) hypertension Code(s): I10 - Essential (primary) hypertension Status: Chronic Assessment and Plan: Continue hydrochlorothiazide, Cozaar (6) Urethral stricture: Qualifiers: Urethral stricture type: unspecified stricture type Urethral stricture sex-location: male urethra-unspecified Qualified Code(s): N35.919 - Unspecified urethral stricture, male, unspecified site Code(s): N35.919 - Unspecified urethral stricture, male, unspecified site Status: Chronic Assessment and Plan: Bilateral ureteral stent placement and urethral meatal dilatation on 08/10. -Anand removed on 08/12 -continue to monitor urine output (7) Bronchiectasis: Qualifiers: Bronchiectasis type: uncomplicated Qualified Code(s): J47.9 - Bronchiectasis, uncomplicated Code(s): J47.9 - Bronchiectasis, uncomplicated Status: Chronic Assessment and Plan: Continue Anoro Ellipta daily, albuterol p.r.n. 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 on 08/10 for an elected sigmoidectomy to avoid further episodes of diverticulitis. Patient was initially scheduled for the sigmoidectomy in March 2025 but had an abnormal chest x-ray and bronchiectasis on a chest CT. 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 Disla for further workup of his abnormal CT. Patient was able to pass a [address] Disla found past CT scans that showed the bronchi ectatic change had been there for many years. Patient also has a history of hypospadias with meatal stenosis creating difficulty passing a Anand catheter. Urology was requested to place bilateral ureteral stents for assistance in identifying the ureters and perform a urethral meatal dilatation. Patient has a history of a right leg DVT and PE. He takes Xarelto 20 mg daily for anticoagulation. Patient underwent hand assisted lap sigmoidectomy with anastomosis on 08/10. Hospital course: 08/11: Patient with expected pain in tolerating clear liquid diet. Had not yet gotten out of bed. Ambulation encouraged. Not yet passing gas 08/12: Anand discontinued per Urology. Patient noted to have increased pain. Abdomen distended and sore. Still no bowel sounds. CT reads intra-abdominal free air (likely postoperative), complex fluid within the pelvis with small amount of hemoperitoneum. Rim enhancing fluid collections are noted and suspicious for early abscess. Multiple dilated loops of small bowel with decompressed small bowel loops in the pelvis. NGT placed. Patient reportedly had bloody bowel movement after ambulating. WBC increased from 12.2 to 14.2. Sodium 129, CRP 26.8. Review of Systems 2 Review of Systems: All systems reviewed & are unremarkable except as noted in HPI and below PMFSH Past Medical History Medical History Bronchiectasis History of pulmonary embolism History of pulmonary embolus (PE) History of DVT (deep vein thrombosis) Hypertension Surgical History Surgical History Hx of tonsillectomy Social History Social History Smoking status: Never smoker Alcohol intake: current Drinks per week: 21 Alcohol use details: BEER Substance use: never Substance use type: does not use Do You Feel Safe in your Home?: Yes Lack of Transportation: No Lack of Food: Never True Current Housing: I Have Housing Concerned About Future Housing: No Difficulty Paying Gas/Electric Bills: No Difficulty Paying for Meds: No Currently Unemployed: No Education: High School Diploma/GED Difficulty w/ Childcare or Family Care: No Living arrangements: with family Additional living arrangements comments: Spiritual care concerns: No Meds Home Medications and Allergies Home Medications ?Medication ?Instructions ?Recorded ?Confirmed ?Type losartan 100 1 tablet PO DAILY 02/01/25 1 10/10/24 History mg-hydrochlorothiazide 12.5 mg tablet tramadol 50 mg tablet 50 mg PO BID PRN pain 08/01/25 History umeclidinium 62.5 mcg-vilanterol 1 inh inhalation Q24H 04/07/25 08/01/25 Rx 25 mcg/actuation powdr for bronchiectasis 3 months #18 0 ea inhalation (Anoro Ellipta) albuterol sulfate 90 mcg/actuation 2 inh inhalation Q6 H PRN shortness 04/26/25 08/01/25 Rx aerosol inhaler (Ventolin HFA) of breath 1 month #8.5 grams ciprofloxacin HCl 500 mg tablet 500 mg PO .COMPLEX #1 tablet 08/01/25 08/10/25 Rx metronidazole 500 mg tablet 500 mg PO .COMPLEX #3 tabs 08/01/25 08/10/25 Rx rivaroxaban 20 mg tablet (Xarelto) 20 mg PO DAILY 07/2308/10/25 History Allergies Allergy/AdvReac Type Severity Reaction Status Date / Time No Known Allergies Allergy Verified 08/10/25 13:44 Vital Signs Vital Signs - 24 hr 08/11/25 19:49 08/11/25 21:42 08/12/25 04:15 Temperature 98.5 F 97.4 F L Pulse Rate 106 H 96 Respiratory Rate 16 24 H Blood Pressure 134/77 147/84 H Pulse Oximetry 92 93 Oxygen Delivery Room Air 08/12/25 08:00 08/12/25 14:00 Temperature 97.3 F L Pulse Rate 129 H Respiratory Rate 19 Blood Pressure 125/74 Pulse Oximetry 92 Oxygen Delivery Room Air Exam 2 Narrative: GENERAL: non-toxic appearing, mild distress after having NGT placed HEAD: Normocephalic, atraumatic. EYES: PERRLA. Conjunctivae clear. NOSE: NGT THROAT: Pharynx clear, no exudate. Patient constantly hacking and spitting out saliva post NGT placement NECK: Trachea midline. Thyroid not palpable. No adenopathy, no masses. RESPIRATORY: Airway patent, respirations nonlabored. CTA. CARDIOVASCULAR: Regular rate and rhythm GASTROINTESTINAL: Abdomen round, firm and tender to palpation. Lap sites approximated with surgical glue. Absent bowel sounds. NGT to LIS recently placed by surgeon-bilious output noted in canister GENITOURINARY: Defer MUSCULOSKELETAL: Moves all extremities. No gross deformities. SKIN: Warm, dry, normal color. Lap sites approximated. Clean dry and intact. NEURO: A&O X4. Speech clear PSYCHIATRIC: Normal interaction Results Labs 08/12/25 06:10 08/12/25 06:10 Labs: Short CBC 08/12/25 Range/Units 06:10 WBC 14.2 H (4.5-10.0) K/mm3 Hgb 14.8 (14.0-18.0) g/dL Hct 44.5 (42.0-52.0) % Plt Count 192 (150-375) k/mm3 BMP 08/12/25 06:10 Sodium 129 L Potassium 3.6 Chloride 101 Carbon Dioxide 20 L BUN 10 Creatinine 1.03 Glucose 149 H Calcium 8.0 L Quality VTE Prophylaxis VTE prophylaxis: pharmacologic ordered Hospitalist [facility] Advance Care Plan I have confirmed that the patient's Advanced Care Plan is present, code status is documented, or surrogate decision maker is listed in patient medical record.: Yes Medication Reconciliation I have utilized all available resources to obtain, update and review the patients current medications (includes all prescriptions, OTC, herbals, cannabis, and nutritional supplements).: Yes
[2025-08-12 16:25] VITALS: BP 116/84; PULSE 130; RESP 17; TEMP 36.5; O2SAT 93
[2025-08-12] MEDS: PHENOL/SOD PHENO SPRAY CHERRY (*BKC) 1 SPRAY MUCOUS MEM (17:58)
[2025-08-12 20:18] VITALS: BP 105/71; PULSE 121; RESP 18; TEMP 36.2; O2SAT 98
[2025-08-12 20:43] LABS: Hematocrit 46.3 % (42.0-52.0); Hemoglobin 16.0 g/dL (14.0-18.0); Immature Granulocyte Percent A 0.6 % (0-0.5); Lymphocytes Absolute Auto 0.49 K/mm3 (0.9-3.2); Mean Corpuscular HGB Conc 34.6 g/dl (32-36); Mean Corpuscular Hemoglobin 33.5 pg (26-34); Mean Corpuscular Volume 96.9 fl (80-100); Nucleated Red Blood Cells Absolute Auto 0.000 K/mm3 (0.0-0.012); Nucleated Red Blood Cells Perc 0.0 % (0.0-0.2); Platelet Count Result 192 k/mm3 (150-375); Red Blood Count 4.78 M/mm3 (4.6-6.20); White Blood Count 18.2 K/mm3 (4.5-10.0)
[2025-08-12] MEDS: SODIUM CHLORIDE 0.9% IV 1,000 ML 999 ML IV CONT (23:45)
[2025-08-13] VITALS (7 sets, daily range): BP systolic 121–156; BP diastolic 82–89; PULSE 110–134; RESP 17–31; TEMP 36.7–38.4; O2SAT 93–95
[2025-08-13] MEDS: KCL 40 MEQ/D5/0.9% SOD CHL 1,000 ML 125 ML IV CONT ×2 (01:40→12:09)
[2025-08-13 06:04] LABS: Hematocrit 46.2 % (42.0-52.0); Hemoglobin 15.5 g/dL (14.0-18.0); Immature Granulocyte Percent A 0.8 % (0-0.5); Lymphocytes Absolute Auto 0.50 K/mm3 (0.9-3.2); Mean Corpuscular HGB Conc 33.5 g/dl (32-36); Mean Corpuscular Hemoglobin 33.8 pg (26-34); Mean Corpuscular Volume 100.7 fl (80-100); Nucleated Red Blood Cells Absolute Auto 0.000 K/mm3 (0.0-0.012); Nucleated Red Blood Cells Perc 0.0 % (0.0-0.2); Platelet Count Result 185 k/mm3 (150-375); Red Blood Count 4.59 M/mm3 (4.6-6.20); White Blood Count 15.6 K/mm3 (4.5-10.0)
[2025-08-13] MEDS: PIPERACILLIN/TAZOBACTAM SOD 3.375 GM in SODIUM CHLORIDE 0.9% IV 50 ML 100 ML IVPB ×3 (06:35→19:57)
[2025-08-13] MEDS: MORPHINE SULFATE (*CRX) 4 MG/ML INJ 2 MG IV PUSH ×2 (06:35→15:34)
[2025-08-13 06:48] LABS: Anion Gap 8 mmol/L (4-12); Blood Urea Nitrogen 13 mg/dL (9-20); Calcium 8.1 mg/dL (8.4-10.2); Carbon Dioxide 22 mmol/L (22-30); Chloride 103 mmol/L (98-107); Estimated CRCL calculation 60 ml/min; Estimated Glomerular Filt Rate > 60; Glucose 158 mg/dL (65-110); Potassium 3.8 mmol/L (3.4-5.0); Sodium 133 mmol/L (137-145)
[2025-08-13 07:05] LABS: CRP > 45.0 mg/dL (<1.0)
[2025-08-13] MEDS: UMECLIDINIUM/VILANTEROL 62.5-25 MCG ELLIPTA 1 PUFF INHALATION (07:09)
--- NOTE | 2025-08-13 07:54 | P.PNIM_ITS ---
Progress Note: A&P Assessment and Plan (1) Status post colon resection: Code(s): Z90.49 - Acquired absence of other specified parts of digestive tract Status: Acute Assessment and Plan: Patient underwent hand assisted lap sigmoidectomy with anastomosis on 08/10 due to frequent admissions for diverticulitis. * Post op 08/10/25 Hand access laparoscopic sigmoidectomy * pain control per surgery with ibuprofen, morphine, oxycodone * Entereg per surgery * continue to encourage incentive spirometry use. CT demonstrates atelectasis at the lung bases with small infiltrates * teach patient pillow splinting (2) Obstruction of small intestine after surgical procedure: Code(s): K91.30 - Postprocedural intestinal obstruction, unspecified as to partial versus complete Status: Acute Assessment and Plan: SBO versus postop ileus. CT reads intra-abdominal free air (likely postoperative), complex fluid within the pelvis with small amount of hemoperitoneum. Rim enhancing fluid collections are noted and suspicious for early abscess. Multiple dilated loops of small bowel with decompressed small bowel loops in the pelvis. Spent a long time educating patient on the importance of ambulation after bowel surgery due to the risks of postoperative ileus and prolonged hospital stay. Patient states he has only been ambulating in his room to the bathroom. I strongly encouraged him to walk the halls explained the effects of surgery and opioids on his bowels and the importance of ambulation. Patient states he walks roughly 14,000 steps per day for his job. * NGT placed today-keep to low intermittent suction * clamp NG tube for ambulation * continue encouraging patient to ambulate in the halls * continue D5 NS with 40 of K @ 125 * 1 L NS bolus ordered due to tachycardia * Zosyn started on 08/12 * Chloraseptic spray for NGT discomfort * Repeat KUB: NG tube within gastric fundus, persistent small bowel obstruction * General surgery remains primary (3) Bloody stool: Code(s): K92.1 - Melena Status: Acute Assessment and Plan: Had 1 episode of bright red blood per rectum post first ambulation in the [facility] on 08/12. Patient denies shortness of breath or dizziness. * repeat hemoglobin 16.0 * continue to monitor * No episodes of bloody stool last night/this am * :22: Hgb 15.5 (4) History of pulmonary embolism: Code(s): Z86.711 - Personal history of pulmonary embolism Status: Chronic Assessment and Plan: Patient with history of PE and DVT. On chronic Xarelto at home * continue to hold Xarelto * continue Lovenox (5) Hypertension: Qualifiers: Hypertension type: primary hypertension Qualified Code(s): I10 - Essential (primary) hypertension Code(s): I10 - Essential (primary) hypertension Status: Chronic Assessment and Plan: * Continue hydrochlorothiazide, Cozaar (6) Urethral stricture: Qualifiers: Urethral stricture sex-location: male urethra-unspecified Urethral stricture type: unspecified stricture type Qualified Code(s): N35.919 - U nspecified urethral stricture, male, unspecified site Code(s): N35.919 - Unspecified urethral stricture, male, unspecified site Status: Chronic Assessment and Plan: Bilateral ureteral stent placement and urethral meatal dilatation on 08/10. * Anand removed on 08/12 * continue to monitor urine output * Urology following (7) Bronchiectasis: Qualifiers: Bronchiectasis type: uncomplicated Qualified Code(s): J47.9 - Bronchiectasis, uncomplicated Code(s): J47.9 - Bronchiectasis, uncomplicated Status: Chronic Assessment and Plan: * Continue Anoro Ellipta daily, albuterol p.r.n. Plan Diet: Ice chips GI prophylaxis: NA DVT prophylaxis: Lovenox lines/drains: PIV, NGT Fluids: D5 NS with 40 of K @ 125 Code status: Full Subjective Date/time seen: 08/13/25 07:54 Interval history: 60 year old male with a past medical history of PE, HTN, DVT, bronchiectasis, diverticulitis requiring several inpatient admissions presented to [facility] on 08/10 for an elected sigmoidectomy to avoid further episodes of diverticulitis. 08/13/25: Patient sitting comfortably in bed at time of exam. NG remains in place. Endorses passage of bowel movement last night and continued flatus passage, cesar elba bowel sounds remain hypoactive. Repeat KUB showed NG tube within gastric fundus, persistent small bowel obstruction. Improvement in leukocytosis, down from 18.2 -> 15.6. Review of Systems Review of Systems: All systems reviewed & are unremarkable except as noted in HPI and below Exam Narrative: GENERAL: non-toxic appearing, mild distress after having NGT placed HEAD: Normocephalic, atraumatic. EYES: PERRLA. Conjunctivae clear. NOSE: NGT THROAT: Pharynx clear, no exudate. Patient constantly hacking and spitting out saliva post NGT placement NECK: Trachea midline. Thyroid not palpable. No adenopathy, no masses. RESPIRATORY: Airway patent, respirations nonlabored. CTA. CARDIOVASCULAR: Regular rate and rhythm GASTROINTESTINAL: Abdomen round, firm and tender to palpation. Lap sites approximated with surgical glue. Absent bowel sounds. NGT to LIS recently placed by surgeon-bilious output noted in canister GENITOURINARY: Defer MUSCULOSKELETAL: Moves all extremities. No gross deformities. SKIN: Warm, dry, normal color. Lap sites approximated. Clean dry and intact. NEURO: A&O X4. Speech clear PSYCHIATRIC: Normal interaction Objective Data Vital Signs Vital Signs: Vital Signs - 24 hr 08/12/25 08:00 08/12/25 10:30 08/12/25 14:00 Temperature 97.3 F L Pulse Rate 129 H Respiratory Rate 19 Blood Pressure 145/85 H 125/74 Pulse Oximetry 94 92 Oxygen Delivery Room Air 08/12/25 16:25 08/12/25 20:00 08/12/25 20:18 Temperature 97.7 F 97.1 F L Pulse Rate 130 H 121 H Respiratory Rate 17 18 Blood Pressure 116/84 105/71 Pulse Oximetry 93 98 Oxygen Delivery Room Air 08/13/25 05:22 Temperature 98.1 F Pulse Rate 110 H Respiratory Rate 17 Blood Pressure 121/85 Pulse Oximetry 93 Oxygen Delivery Intake/Output Intake/Output: Intake & Output 08/10/25 08/11/25 08/12/25 08/13/25 23:59 23:59 23:59 23:59 Intake Total 2668 2324 1750 290 Output Total 100 1350 2405 2550 Balance 5806 775 -167 -2483 Meds/Results Medications: Active Medications Generic Name Dose Route Start Last Admin Trade Name Freq PRN Reason Stop Dose Admin Albuterol 2 puff 08/10/25 13:04 Albuterol Sulfate (*Sp) Aerosol 1 Puff INHALATION Q6H PRN Shortness Of Breath Alvimopan 12 mg 08/11/25 21:00 08/12/25 10:30 Alvimopan 12 Mg Capsule PO 08/18/25 20:59 12 mg On Hold: 08/12/25 11:48 Q12HR ANNETTE Administration Enoxaparin Sodium 40 mg 08/11/25 09:00 08/12/25 10:30 Enoxaparin 40 Mg/0.4 Ml Syringe SUB-Q 40 mg On Hold: 08/12/25 17:18 DAILY ANNETTE Administration Famotidine 20 mg 08/10/25 21:00 08/12/25 21:22 Famotidine 20 Mg/2 Ml Vial IV PUSH 20 mg Q12HR ANNETTE Administration Hydrochlorothiazide 12.5 mg 08/11/25 09:00 08/12/25 10:31 Hydrochlorothiazide 12.5 Mg Capsule PO 12.5 mg On Hold: 08/12/25 11:48 QAM ANNETTE Administration Ibuprofen 800 mg in 200 mls @ 400 mls/hr 08/10/25 13:04 Caldolor 800 Mg/200 Ml IVPB Q6H PRN Breakthrough Pain Rated 1-3 or NPO Piperacillin Sod/Tazobactam 50 mls @ 100 mls/hr 08/12/25 12:00 08/13/25 06:35 Sod 3.375 gm/ Sodium Chloride IVPB 100 mls/hr Q6H ANNETTE Administration Potassium Chloride/Dextrose/Sod Cl 1,000 mls @ 125 mls/hr 08/12/25 12:00 08/13/25 01:40 Kcl 40 Meq/D5ns IV CONT 125 mls/hr .Q8H ANNETTE Administration Losartan Potassium 100 mg 08/11/25 09:00 08/12/25 10:30 Losartan Potassium 100 Mg Tablet PO 100 mg On Hold: 08/12/25 11:48 DAILY ANNETTE Administration Morphine Sulfate 2 mg 08/10/25 13:04 08/13/25 06:35 Morphine Sulfate (*Crx) 4 Mg/Ml Inj IV PUSH 2 mg Q2H PRN Administration Breakthrough Pain Rated 4-6 or NPO Morphine Sulfate 4 mg 08/10/25 13:04 08/12/25 05:25 Morphine Sulfate (*Crx) 4 Mg/Ml Inj IV PUSH 4 mg Q2H PRN Administration Breakthrough Pain Rated 7-10 or NPO Naloxone HCl 0.1 mg 08/10/25 13:04 Naloxone Hcl 0.4 Mg/Ml Vial IV PUSH Q2M PRN Opiate Reversal Ondansetron HCl 4 mg 08/10/25 13:04 Ondansetron Inj 4 Mg/2 Ml Vial IV PUSH Q4H PRN Nausea And Vomiting Oxycodone/Acetaminophen 1 tablet 08/10/25 13:04 08/12/25 10:33 Oxycodone/Acetaminophen (*Crx) 5-325 Mg Tablet PO 1 tablet On Hold: 08/12/25 11:49 Q4H PRN Administration Pain Rated 4-6 Oxycodone/Acetaminophen 1 tab 08/10/25 13:04 08/11/25 15:28 Oxycodone/Acetaminophen (*Crx) 10-325 Mg Tablet PO 1 tab On Hold: 08/12/25 11:49 Q6H PRN Administration Pain Rated 7-10 Phenol 1 spray 08/12/25 15:01 08/12/25 17:58 Phenol/Sod Pheno [place] (*Bkc) MUCOUS MEM 1 spray PRN PRN Administration Sore Throat Tramadol HCl 50 mg 08/10/25 13:04 Tramadol Hcl (*Crx) 50 Mg Tablet PO On Hold: 08/12/25 11:49 Q4H PRN Pain Rated 1-3 Trazodone HCl 50 mg 08/10/25 13:04 Trazodone Hcl 50 Mg Tablet PO On Hold: 08/12/25 11:49 HS PRN Insomnia Umeclidinium/Vilanterol 1 puff 08/10/25 14:00 08/13/25 07:09 Umeclidinium/Vilanterol 62.5-25 Mcg Ellipta INHALATION 1 puff DAILY ANNETTE Administration Radiology Results: ITS Impressions Abdomen/Pelvis CT 08/12/25 08:47 IMPRESSION: 1. Intra-abdominal free air which is possibly postoperative.Viscus perforation is difficult to exclude. There is complex fluid within the pelvis with small amount of hemoperitoneum. Rim-enhancing fluid collections are noted suspicious for early abscess. 2. Small bowel obstruction detailed above Labs Labs: Laboratory Results - last 24 hr 08/12/25 08/12/25 08/13/25 06:10 20:37 05:45 WBC 18.2 H 15.6 H RBC 4.78 4.59 L Hgb 16.0 15.5 Hct 46.3 46.2 MCV 96.9 100.7 H MCH 33.5 33.8 MCHC 34.6 33.5 RDW 13.7 13.6 Plt Count 192 185 MPV 8.0 8.1 Immature Gran % (Auto) 0.6 H 0.8 H Neut % (Auto) 88.4 H 90.1 H Lymph % (Auto) 2.7 L 3.2 L [place] % (Auto) 6.8 5.7 Eos % (Auto) 1.1 0.0 Baso % (Auto) 0.4 0.2 Lymph # (Auto) 0.49 L 0.50 L [place] # (Auto) 1.2 H 0.9 H Eos # (Auto) 0.2 0.0 Baso # (Auto) 0.1 0.0 Abs Immat Gran (auto) 0.11 H 0.12 H Absolute Neuts (auto) 16.1 H 14.1 H Absolute Nucleated RBC 0.000 0.000 Nucleated RBC % 0.0 0.0 Sodium 133 L Potassium 3.8 Chloride 103 Carbon Dioxide 22 Anion Gap 8 BUN 13 Creatinine 1.20 Estim Creat Clear Calc 60 Estimated GFR > 60 Glucose 158 H Calcium 8.1 L C-Reactive Protein 26.8 H > 45.0 H Quality VTE Prophylaxis VTE prophylaxis: pharmacologic ordered
[2025-08-13] MEDS: FAMOTIDINE 20 MG/2 ML VIAL IV PUSH ×2 (09:00→20:48)
[2025-08-13] MEDS: PHENOL/SOD PHENO SPRAY CHERRY (*BKC) 1 SPRAY MUCOUS MEM (12:49)
--- NOTE | 2025-08-13 14:01 | P.PN_ITS ---
Progress Note: A&P Assessment and Plan (1) Sigmoid diverticulitis: Code(s): K57.32 - Diverticulitis of large intestine without perforation or abscess without bleeding Status: Chronic Assessment and Plan: Postop day 2 after hand assisted laparoscopic sigmoid resection. No further blood per rectum. He has not had a bowel movement today but is passing flatus. He wants the NG tube out however his abdomen is still moderately distended and the NG tube output is still mildly bilious. Continue the NG tube to low continuous suction. Patient should get up and sit up in a chair 2 to 3 times a day. Continue IV antibiotics and supportive management for today. May consider clamping NG tube tomorrow if continues to have flatus and his abdomen is less distended tomorrow. KUB tomorrow morning. Repeat labs in the morning. Subjective Date/time seen: 08/13/25 14:01 Interval history: Patient seems to be better today. No further reports of blood in any bowel movements. Actually has not had any bowel movements today. He states he is passing flatus. Started having some acute pain in the left side of his abdomen were warm his port sites is this afternoon after got up to the side of the bed. White blood cell count down to 15,000 from 17,000 yesterday. NG tube output still mildly bilious. He has been taking quite a bit ice chips. Exam GI: Other: Abdomen is still moderately distended. Incision is healing well without any redness or drainage. Decreased bowel sounds. Objective Data Vital Signs Vital Signs: Vital Signs - 24 hr 08/12/25 16:25 08/12/25 20:00 08/12/25 20:18 Temperature 36.5 C 36.2 C L Pulse Rate 130 H 121 H Respiratory Rate 17 18 Blood Pressure 116/84 105/71 Pulse Oximetry 93 98 Oxygen Delivery Room Air 08/13/25 05:22 08/13/25 09:00 Temperature 36.7 C Pulse Rate 110 H Respiratory Rate 17 Blood Pressure 121/85 Pulse Oximetry 93 Oxygen Delivery Room Air Intake/Output Intake/Output: Intake & Output 08/10/25 08/11/25 08/12/25 08/13/25 23:59 23:59 23:59 23:59 Intake Total 2668 2324 1750 1610 Output Total 100 1350 2405 3600 Balance [phone] [phone] Meds/Results Medications: Active Medications Generic Name Dose Route Start Last Admin Trade Name Freq PRN Reason Stop Dose Admin Albuterol 2 puff 08/10/25 13:04 Albuterol Sulfate (*Sp) Aerosol 1 Puff INHALATION Q6H PRN Shortness Of Breath Alvimopan 12 mg 08/11/25 21:00 08/12/25 10:30 Alvimopan 12 Mg Capsule PO 08/18/25 20:59 12 mg On Hold: 08/12/25 11:48 Q12HR ANNETTE Administration Enoxaparin Sodium 40 mg 08/11/25 09:00 08/12/25 10:30 Enoxaparin 40 Mg/0.4 Ml Syringe SUB-Q 40 mg On Hold: 08/12/25 17:18 DAILY ANNETTE Administration Famotidine 20 mg 08/10/25 21:00 08/13/25 09:00 Famotidine 20 Mg/2 Ml Vial IV PUSH 20 mg Q12HR ANNETTE Administration Hydrochlorothiazide 12.5 mg 08/11/25 09:00 08/12/25 10:31 Hydrochlorothiazide 12.5 Mg Capsule PO 12.5 mg On Hold: 08/12/25 11:48 QAM ANNETTE Administration Ibuprofen 800 mg in 200 mls @ 400 mls/hr 08/10/25 13:04 Caldolor 800 Mg/200 Ml IVPB Q6H PRN Breakthrough Pain Rated 1-3 or NPO Piperacillin Sod/Tazobactam 50 mls @ 100 mls/hr 08/12/25 12:00 08/13/25 12:09 Sod 3.375 gm/ Sodium Chloride IVPB 100 mls/hr Q6H ANNETTE Administration Potassium Chloride/Dextrose/Sod Cl 1,000 mls @ 125 mls/hr 08/12/25 12:00 08/13/25 12:09 Kcl 40 Meq/D5ns IV CONT 125 mls/hr .Q8H ANNETTE Administration Losartan Potassium 100 mg 08/11/25 09:00 08/12/25 10:30 Losartan Potassium 100 Mg Tablet PO 100 mg On Hold: 08/12/25 11:48 DAILY ANNETTE Administration Morphine Sulfate 2 mg 08/10/25 13:04 08/13/25 06:35 Morphine Sulfate (*Crx) 4 Mg/Ml Inj IV PUSH 2 mg Q2H PRN Administration Breakthrough Pain Rated 4-6 or NPO Morphine Sulfate 4 mg 08/10/25 13:04 08/12/25 05:25 Morphine Sulfate (*Crx) 4 Mg/Ml Inj IV PUSH 4 mg Q2H PRN Administration Breakthrough Pain Rated 7-10 or NPO Naloxone HCl 0.1 mg 08/10/25 13:04 Naloxone Hcl 0.4 Mg/Ml Vial IV PUSH Q2M PRN Opiate Reversal Ondansetron HCl 4 mg 08/10/25 13:04 Ondansetron Inj 4 Mg/2 Ml Vial IV PUSH Q4H PRN Nausea And Vomiting Oxycodone/Acetaminophen 1 tablet 08/10/25 13:04 08/12/25 10:33 Oxycodone/Acetaminophen (*Crx) 5-325 Mg Tablet PO 1 tablet On Hold: 08/12/25 11:49 Q4H PRN Administration Pain Rated 4-6 Oxycodone/Acetaminophen 1 tab 08/10/25 13:04 08/11/25 15:28 Oxycodone/Acetaminophen (*Crx) 10-325 Mg Tablet PO 1 tab On Hold: 08/12/25 11:49 Q6H PRN Administration Pain Rated 7-10 Phenol 1 spray 08/12/25 15:01 08/13/25 12:49 Phenol/Sod Pheno [place] (*Bkc) MUCOUS MEM 1 spray PRN PRN Administration Sore Throat Tramadol HCl 50 mg 08/10/25 13:04 Tramadol Hcl (*Crx) 50 Mg Tablet PO On Hold: 08/12/25 11:49 Q4H PRN Pain Rated 1-3 Trazodone HCl 50 mg 08/10/25 13:04 Trazodone Hcl 50 Mg Tablet PO On Hold: 08/12/25 11:49 HS PRN Insomnia Umeclidinium/Vilanterol 1 puff 08/10/25 14:00 08/13/25 07:09 Umeclidinium/Vilanterol 62.5-25 Mcg Ellipta INHALATION 1 puff DAILY ANNETTE Administration Radiology Results: ITS Impressions Abdomen/Pelvis CT 08/12/25 08:47 IMPRESSION: 1. Intra-abdominal free air which is possibly postoperative.Viscus perforation is difficult to exclude. There is complex fluid within the pelvis with small amount of hemoperitoneum. Rim-enhancing fluid collections are noted suspicious for early abscess. 2. Small bowel obstruction detailed above Labs Labs: Laboratory Results - last 24 hr 08/12/25 08/13/25 20:37 05:45 WBC 18.2 H 15.6 H RBC 4.78 4.59 L Hgb 16.0 15.5 Hct 46.3 46.2 MCV 96.9 100.7 H MCH 33.5 33.8 MCHC 34.6 33.5 RDW 13.7 13.6 Plt Count 192 185 MPV 8.0 8.1 Immature Gran % (Auto) 0.6 H 0.8 H Neut % (Auto) 88.4 H 90.1 H Lymph % (Auto) 2.7 L 3.2 L [place] % (Auto) 6.8 5.7 Eos % (Auto) 1.1 0.0 Baso % (Auto) 0.4 0.2 Lymph # (Auto) 0.49 L 0.50 L [place] # (Auto) 1.2 H 0.9 H Eos # (Auto) 0.2 0.0 Baso # (Auto) 0.1 0.0 Abs Immat Gran (auto) 0.11 H 0.12 H Absolute Neuts (auto) 16.1 H 14.1 H Absolute Nucleated RBC 0.000 0.000 Nucleated RBC % 0.0 0.0 Sodium 133 L Potassium 3.8 Chloride 103 Carbon Dioxide 22 Anion Gap 8 BUN 13 Creatinine 1.20 Estim Creat Clear Calc 60 Estimated GFR > 60 Glucose 158 H Calcium 8.1 L C-Reactive Protein > 45.0 H
--- NOTE | 2025-08-13 15:25 | ECG_ITS ---
Test Date: 2025-08-13 16:30:04 Measurements Intervals [place] Rate: 128 P: 29 AK: 148 QRS: 21 QRSD: 106 T: 75 QT: 280 QTc: 409 Interpretive Statements SINUS TACHYCARDIA NONSPECIFIC ST & T-WAVE ABNORMALITY ABNORMAL RHYTHM ECG Electronically Signed On 08-13-2025 22:54:39 [employer] by Nu Shah M.D.
[2025-08-13 16:20] LABS: Troponin I < 0.012 ng/mL (0.000-0.034)
[2025-08-13] MEDS: cefTRIAXone 1 GM in SODIUM CHLORIDE 0.9% IV 50 ML 100 ML IVPB (17:43)
[2025-08-13] MEDS: SODIUM CHLORIDE 0.9% IV 500 ML IV CONT (18:25)
--- NOTE | 2025-08-13 19:18 | PC.NURSE ---
Pt Ng was placed by Dr. Anderson. There are no measurements available on the tube. The amount of tube that is out of his nose is 40.5cm. tube placement was verified yesterday.
[2025-08-13 20:12] LABS: Add Urine Microscopic? YES; Appearance Urine Clear (Clear); Glucose Urine UA Negative (Negative); Leukocyte Esterase Ur Negative LEU/UL (Negative); Nitrate Urine Negative (Negative); Non Pathogenic Casts 0-2; Specific Grav Ur > 1.045 (1.001-1.035)
[2025-08-13 20:34] LABS: Troponin I < 0.012 ng/mL (0.000-0.034)
[2025-08-13 20:37] LABS: Procalcitonin 5.5 ng/mL
[2025-08-14] VITALS (7 sets, daily range): BP systolic 144–159; BP diastolic 60–96; PULSE 99–125; RESP 18–20; TEMP 36.1–37.3; O2SAT 94–98
[2025-08-14] MEDS: KCL 40 MEQ/D5/0.9% SOD CHL 1,000 ML 125 ML IV CONT ×3 (01:23→20:45)
[2025-08-14] MEDS: PIPERACILLIN/TAZOBACTAM SOD 3.375 GM in SODIUM CHLORIDE 0.9% IV 50 ML 100 ML IVPB ×4 (05:40→17:12)
[2025-08-14 05:41] LABS: Hematocrit 43.0 % (42.0-52.0); Hemoglobin 14.4 g/dL (14.0-18.0); Immature Granulocyte Percent A 0.4 % (0-0.5); Lymphocytes Absolute Auto 0.53 K/mm3 (0.9-3.2); Mean Corpuscular HGB Conc 33.5 g/dl (32-36); Mean Corpuscular Hemoglobin 33.1 pg (26-34); Mean Corpuscular Volume 98.9 fl (80-100); Nucleated Red Blood Cells Absolute Auto 0.000 K/mm3 (0.0-0.012); Nucleated Red Blood Cells Perc 0.0 % (0.0-0.2); Platelet Count Result 191 k/mm3 (150-375); Red Blood Count 4.35 M/mm3 (4.6-6.20); White Blood Count 11.7 K/mm3 (4.5-10.0)
[2025-08-14 05:59] LABS: Anion Gap 8 mmol/L (4-12); Blood Urea Nitrogen 14 mg/dL (9-20); Calcium 8.2 mg/dL (8.4-10.2); Carbon Dioxide 20 mmol/L (22-30); Chloride 109 mmol/L (98-107); Estimated CRCL calculation 66 ml/min; Estimated Glomerular Filt Rate > 60; Glucose 142 mg/dL (65-110); Potassium 4.0 mmol/L (3.4-5.0); Sodium 137 mmol/L (137-145)
[2025-08-14 06:47] LABS: CRP > 45.0 mg/dL (<1.0)
--- NOTE | 2025-08-14 07:09 | P.PNIM_ITS ---
Progress Note: A&P Assessment and Plan (1) Status post colon resection: Code(s): Z90.49 - Acquired absence of other specified parts of digestive tract Status: Acute Assessment and Plan: Patient underwent hand assisted lap sigmoidectomy with anastomosis on 08/10 due to frequent admissions for diverticulitis. * Post op 08/10/25 Hand access laparoscopic sigmoidectomy * pain control per surgery with ibuprofen, morphine, oxycodone * Entereg per surgery * continue to encourage incentive spirometry use. CT demonstrates atelectasis at the lung bases with small infiltrates * teach patient pillow splinting (2) Sepsis: Code(s): A41.9 - Sepsis, unspecified organism Status: Acute Assessment and Plan: * Meets SIRS criteria: Leukocytosis, Tachycardia, tachypnea * lactic acid: 1.9 * Procalcitonin: 5.5 * suspected source: Intra-abdominal * blood cultures drawn on 08/13 * UA: Not indicative of infection * Urine culture not obtained * Chest CTA: Negative for pulmonary embolism. Bilateral probable pneumonia. Intraabdominal free air unchanged from previous exam * Continue Zosyn (3) Obstruction of small intestine after surgical procedure: Code(s): K91.30 - Postprocedural intestinal obstruction, unspecified as to partial versus complete Status: Acute Assessment and Plan: SBO versus postop ileus. CT reads intra-abdominal free air (likely postoperative), complex fluid within the pelvis with small amount of hemoperitoneum. Rim enhancing fluid collections are noted and suspicious for early abscess. Multiple dilated loops of small bowel with decompressed small bowel loops in the pelvis. Spent a long time educating patient on the importance of ambulation after bowel surgery due to the risks of postoperative ileus and prolonged hospital stay. Patient states he has only been ambulating in his room to the bathroom. I strongly encouraged him to walk the halls explained the effects of surgery and opioids on his bowels and the importance of ambulation. Patient states he walks roughly 14,000 steps per day for his job. * NGT placed today-keep to low intermittent suction * clamp NG tube for ambulation * continue encouraging patient to ambulate in the halls * continue D5 NS with 40 of K @ 125 * 1 L NS bolus ordered due to tachycardia * Zosyn started on 08/12 * Chloraseptic spray for NGT discomfort * Repeat KUB: NG tube within gastric fundus, persistent small bowel obstruction * General surgery remains primary * May remove NG today if not nauseous (4) Bloody stool: Code(s): K92.1 - Melena Status: Acute Assessment and Plan: Had 1 episode of bright red blood per rectum post first ambulation in the [facility] on 08/12. Patient denies shortness of breath or dizziness. * repeat hemoglobin 16.0 * continue to monitor * No episodes of bloody stool last night/this am * :: Hgb 14.4 (5) History of pulmonary embolism: Code(s): Z86.711 - Personal history of pulmonary embolism Status: Chronic Assessment and Plan: Patient with history of PE and DVT. On chronic Xarelto at home * continue to hold Xarelto * continue Lovenox (6) Hypertension: Qualifiers: Hypertension type: primary hypertension Qualified Code(s): I10 - Essential (primary) hypertension Code(s): I10 - Essential (primary) hypertension Status: Chronic Assessment and Plan: * Continue hydrochlorothiazide, Cozaar (7) Urethral stricture: Qualifiers: Urethral stricture sex-location: male urethra-unspecified Urethral stricture type: unspecified stricture type Qualified Code(s): N35.919 - Unspecified urethral stricture, male, unspecified site Code(s): N35.919 - Unspecified urethral stricture, male, unspecified site Status: Chronic Assessment and Plan: Bilateral ureteral stent placement and urethral meatal dilatation on 08/10. * Anand removed on 08/12 * continue to monitor urine output * Urology following (8) Bronchiectasis: Qualifiers: Bronchiectasis type: uncomplicated Qualified Code(s): J47.9 - Bronchiectasis, uncomplicated Code(s): J47.9 - Bronchiectasis, uncomplicated Status: Chronic Assessment and Plan: * Continue Anoro Ellipta daily, albuterol p.r.n. Plan Diet: Ice chips GI prophylaxis: NA DVT prophylaxis: Lovenox lines/drains: PIV, NGT Fluids: D5 NS with 40 of K @ 125 Code status: Full Subjective Date/time seen: 08/14/25 07:09 Interval history: 60 year old male with a past medical history of PE, HTN, DVT, bronchiectasis, diverticulitis requiring several inpatient admissions presented to [facility] on 08[facility]10 for an elected sigmoidectomy to avoid further episodes of diverticulitis. 08/14/25: Patient sitting comfortably in bed at time of exam. Sepsis workup initiated last night as patient was found to have significant tachycardia w/ HR in the 130s w/ tachypnea along with WBC 15.6, blood cultures drawn. Chest CTA ordered last night as patient was having left sided shoulder/chest pain along with tachycardia/tachypnea. Negative for DVT along with intra-abdominal free air, unchanged from previous exam. Pt is having small amounts of liquid stool, albeit blood, however this is to be expected with current problems. Surgery considering removing NG tube with starting clear liquids if pt remains asymptomatic. Continue IV abx. Review of Systems Review of Systems: All systems reviewed & are unremarkable except as noted in HPI and below Exam Narrative: GENERAL: non-toxic appearing HEAD: Normocephalic, atraumatic. EYES: PERRLA. Conjunctivae clear. NOSE: NGT THROAT: Pharynx clear, no exudate. Patient constantly hacking and spitting out saliva post NGT placement NECK: Trachea midline. Thyroid not palpable. No adenopathy, no masses. RESPIRATORY: Airway patent, respirations nonlabored. CTA. CARDIOVASCULAR: Regular rate and rhythm GASTROINTESTINAL: Abdomen round, firm and tender to palpation. Lap sites approximated with surgical glue. Absent bowel sounds. NGT to LIS recently placed by surgeon-bilious output noted in canister GENITOURINARY: Defer MUSCULOSKELETAL: Moves all extremities. No gross deformities. SKIN: Warm, dry, normal color. Lap sites approximated. Clean dry and intact. NEURO: A&O X4. Speech clear PSYCHIATRIC: Normal interaction Objective Data Vital Signs Vital Signs: Vital Signs - 24 hr 08/13/25 09:00 08/13/25 14:00 08/13/25 15:20 Temperature 101.2 F H Pulse Rate 133 H Respiratory Rate 31 H Blood Pressure 153/82 H Pulse Oximetry 95 Oxygen Delivery Room Air 08/13/25 16:00 08/13/25 17:00 08/13/25 18:30 Temperature 99.7 F H 99.3 F Pulse Rate 130 H 131 H Respiratory Rate Blood Pressure 137/89 Pulse Oximetry 94 Oxygen Delivery 08/13/25 20:00 08/13/25 20:00 08/13/25 20:00 Temperature 99.1 F Pulse Rate 132 H 132 H 134 H Respiratory Rate 18 18 Blood Pressure 156/89 H Pulse Oximetry 95 95 Oxygen Delivery Room Air 08/14/25 00:00 08/14/25 00:00 08/14/25 04:00 Temperature 98.8 F Pulse Rate 125 H 119 H 99 Respiratory Rate 20 Blood Pressure 145/89 H Pulse Oximetry 98 Oxygen Delivery 08/14/25 04:00 Temperature 99.1 F Pulse Rate 118 H Respiratory Rate 18 Blood Pressure 150/88 H Pulse Oximetry 97 Oxygen Delivery Intake/Output Intake/Output: Intake & Output 08/11/25 08/12/25 08/13/25 08/14/25 23:59 23:59 23:59 23:59 Intake Total 2324 1750 3420 820 Output Total 1350 2405 6300 2100 Balance 498 [phone] Meds/Results Medications: Active Medications Generic Name Dose Route Start Last Admin Trade Name Freq PRN Reason Stop Dose Admin Albuterol 2 puff 08/10/25 13:04 Albuterol Sulfate (*Sp) Aerosol 1 Puff INHALATION Q6H PRN Shortness Of Breath Alvimopan 12 mg 08/11/25 21:00 08/12/25 10:30 Alvimopan 12 Mg Capsule PO 08/18/25 20:59 12 mg On Hold: 08/12/25 11:48 Q12HR ANNETTE Administration Enoxaparin Sodium 40 mg 08/11/25 09:00 08/12/25 10:30 Enoxaparin 40 Mg/0.4 Ml Syringe SUB-Q 40 mg On Hold: 08/12/25 17:18 DAILY ANNETTE Administration Famotidine 20 mg 08/10/25 21:00 08/13/25 20:48 Famotidine 20 Mg/2 Ml Vial IV PUSH 20 mg Q12HR ANNETTE Administration Hydrochlorothiazide 12.5 mg 08/11/25 09:00 08/12/25 10:31 Hydrochlorothiazide 12.5 Mg Capsule PO 12.5 mg On Hold: 08/12/25 11:48 QAM ANNETTE Administration Ibuprofen 800 mg in 200 mls @ 400 mls/hr 08/10/25 13:04 Caldolor 800 Mg/200 Ml IVPB Q6H PRN Breakthrough Pain Rated 1-3 or NPO Piperacillin Sod/Tazobactam 50 mls @ 100 mls/hr 08/12/25 12:00 08/14/25 06:10 Sod 3.375 gm/ Sodium Chloride IVPB Infused Q6H ANNETTE Infusion Potassium Chloride/Dextrose/Sod Cl 1,000 mls @ 125 mls/hr 08/12/25 12:00 08/14/25 01:23 Kcl 40 Meq/D5ns IV CONT 125 mls/hr .Q8H ANNETTE Administration Losartan Potassium 100 mg 08/11/25 09:00 08/12/25 10:30 Losartan Potassium 100 Mg Tablet PO 100 mg On Hold: 08/12/25 11:48 DAILY ANNETTE Administration Morphine Sulfate 1 mg 08/13/25 18:43 Morphine Sulfate (*Crx) 4 Mg/Ml Inj IV PUSH Q2H PRN Breakthrough Pain Rated 4-6 or NPO Morphine Sulfate 2 mg 08/13/25 18:43 Morphine Sulfate (*Crx) 4 Mg/Ml Inj IV PUSH Q2H PRN Breakthrough Pain Rated 7-10 or NPO Naloxone HCl 0.1 mg 08/10/25 13:04 Naloxone Hcl 0.4 Mg/Ml Vial IV PUSH Q2M PRN Opiate Reversal Ondansetron HCl 4 mg 08/10/25 13:04 Ondansetron Inj 4 Mg/2 Ml Vial IV PUSH Q4H PRN Nausea And Vomiting Oxycodone/Acetaminophen 1 tablet 08/10/25 13:04 08/12/25 10:33 Oxycodone/Acetaminophen (*Crx) 5-325 Mg Tablet PO 1 tablet On Hold: 08/12/25 11:49 Q4H PRN Administration Pain Rated 4-6 Oxycodone/Acetaminophen 1 tab 08/10/25 13:04 08/11/25 15:28 Oxycodone/Acetaminophen (*Crx) 10-325 Mg Tablet PO 1 tab On Hold: 08/12/25 11:49 Q6H PRN Administration Pain Rated 7-10 Phenol 1 spray 08/12/25 15:01 08/13/25 12:49 Phenol/Sod Pheno [place] Wilde (*Bkc) MUCOUS MEM 1 spray PRN PRN Administration Sore Throat Tramadol HCl 50 mg 08/10/25 13:04 Tramadol Hcl (*Crx) 50 Mg Tablet PO On Hold: 08/12/25 11:49 Q4H PRN Pain Rated 1-3 Trazodone HCl 50 mg 08/10/25 13:04 Trazodone Hcl 50 Mg Tablet PO On Hold: 08/12/25 11:49 HS PRN Insomnia Umeclidinium/Vilanterol 1 puff 08/10/25 14:00 08/13/25 07:09 Umeclidinium/Vilanterol 62.5-25 Mcg Ellipta INHALATION 1 puff DAILY ANNETTE Administration Radiology Results: ITS Impressions Abdomen/Pelvis CT 08/12/25 08:47 IMPRESSION: 1. Intra-abdominal free air which is possibly postoperative.Viscus perforation is difficult to exclude. There is complex fluid within the pelvis with small amount of hemoperitoneum. Rim-enhancing fluid collections are noted suspicious for early abscess. 2. Small bowel obstruction detailed above Chest CTA 08/13/25 16:42 IMPRESSION: 1. Negative for pulmonary embolism. Bilateral probable pneumonia. 2. Intra-abdominal free air possibly postoperative in nature relatively unchanged compared to the previous exam Labs Labs: Laboratory Results - last 24 hr 08/13/25 08/13/25 08/13/25 15:44 19:47 19:58 WBC RBC Hgb Hct MCV MCH MCHC RDW Plt Count MPV Immature Gran % (Auto) Neut % (Auto) Lymph % (Auto) [place] % (Auto) Eos % (Auto) Baso % (Auto) Lymph # (Auto) [place] # (Auto) Eos # (Auto) Baso # (Auto) Abs Immat Gran (auto) Absolute Neuts (auto) Absolute Nucleated RBC Nucleated RBC % Sodium Potassium Chloride Carbon Dioxide Anion Gap BUN Creatinine Estim Creat Clear Calc Estimated GFR Glucose Lactic Acid 1.9 Calcium Troponin I < 0.012 < 0.012 C-Reactive Protein Procalcitonin 5.5 Urine Color Yellow Urine Appearance Clear Urine pH 5.5 Ur Specific [place] > 1.045 H Urine Protein 2+ H Urine Glucose (UA) Negative Urine Ketones Negative Ur Blood (Man) 2+ H Urine Nitrate Negative Urine Bilirubin Negative Urine Urobilinogen 0.2 Leukocyte Esterase Rfl Negative Urine RBC 6-10 H Urine WBC 0-5 Ur Squamous Epith Cells None seen Urine Bacteria None seen Urine Casts 0-2 08/14/25 05:34 WBC 11.7 H RBC 4.35 L Hgb 14.4 Hct 43.0 MCV 98.9 MCH 33.1 MCHC 33.5 RDW 13.9 Plt Count 191 MPV 8.2 Immature Gran % (Auto) 0.4 Neut % (Auto) 87.5 H Lymph % (Auto) 4.5 L [place] % (Auto) 5.9 Eos % (Auto) 1.3 Baso % (Auto) 0.4 Lymph # (Auto) 0.53 L [place] # (Auto) 0.7 H Eos # (Auto) 0.2 Baso # (Auto) 0.1 Abs Immat Gran (auto) 0.05 H Absolute Neuts (auto) 10.3 H Absolute Nucleated RBC 0.000 Nucleated RBC % 0.0 Sodium 137 Potassium 4.0 Chloride 109 H Carbon Dioxide 20 L Anion Gap 8 BUN 14 Creatinine 1.07 Estim Creat Clear Calc 66 Estimated GFR > 60 Glucose 142 H Lactic Acid Calcium 8.2 L Troponin I C-Reactive Protein > 45.0 H Procalcitonin Urine Color Urine Appearance Urine pH Ur Specific [place] Urine Protein Urine Glucose (UA) Urine Ketones Ur Blood (Man) Urine Nitrate Urine Bilirubin Urine Urobilinogen Leukocyte Esterase Rfl Urine RBC Urine WBC Ur Squamous Epith Cells Urine Bacteria Urine Casts Quality VTE Prophylaxis VTE prophylaxis: pharmacologic ordered
[2025-08-14] MEDS: UMECLIDINIUM/VILANTEROL 62.5-25 MCG ELLIPTA 1 PUFF INHALATION (07:29)
[2025-08-14] MEDS: PHENOL/SOD PHENO SPRAY CHERRY (*BKC) 1 SPRAY MUCOUS MEM ×3 (08:07→15:36)
[2025-08-14] MEDS: FAMOTIDINE 20 MG/2 ML VIAL IV PUSH ×2 (08:12→20:40)
[2025-08-14] MEDS: SODIUM CHLORIDE 0.9% IV 1,000 ML 100 ML IV CONT (08:12)
[2025-08-14 08:33] LABS: Influenza A QL RT-PCR Negative (Negative); Influenza B QL RT-PCR Negative (Negative); RSV RNA, RT-PCR Negative (Negative); SARS-CoV-2 RNA PCR Negative (Negative)
--- NOTE | 2025-08-14 11:05 | P.PN_ITS ---
Progress Note: A&P Assessment and Plan (1) Diverticulitis: Code(s): K57.92 - Diverticulitis of intestine, part unspecified, without perforation or abscess without bleeding Status: Acute Assessment and Plan: Postop day for hand assisted laparoscopic sigmoid resection with anastomosis. Postop ileus seems to have improved. Started to have small liquid bowel movement. Old blood noted in the bowel movement. Hemoglobin stable. We will go ahead and clamp his NG to this morning see how he does this afternoon. He is not nauseated then can consider removing his NG tube later today and starting on some limited clear liquids. Continue IV antibiotics and supportive management for now. Encourage patient episode up in chair quite a bit today. Subjective Date/time seen: 08/14/25 11:05 Interval history: Patient feels better today. Had a small bowel movement this morning which was dark bloody and liquid. Denies any nausea. She output has been rather high but he has been taking quite a bit of ice chips he is able to get walk to the bathroom independently. White blood count is down to 10,000 today. No fever tachycardia. Exam GI: Other: Abdomen is less distended. Midline incision intact without redness or drainage. Some mild ecchymosis but no hematoma. Objective Data Vital Signs Vital Signs: Vital Signs - 24 hr 08/13/25 14:00 08/13/25 15:20 08/13/25 16:00 Temperature 38.4 C H Pulse Rate 133 H 130 H Respiratory Rate 31 H Blood Pressure 153/82 H Pulse Oximetry 95 Oxygen Delivery 08/13/25 17:00 08/13/25 18:30 08/13/25 20:00 Temperature 37.6 C H 37.4 C 37.3 C Pulse Rate 131 H 132 H Respiratory Rate 18 Blood Pressure 137/89 156/89 H Pulse Oximetry 94 95 Oxygen Delivery 08/13/25 20:00 08/13/25 20:00 08/14/25 00:00 Temperature 37.1 C Pulse Rate 132 H 134 H 125 H Respiratory Rate 18 20 Blood Pressure 145/89 H Pulse Oximetry 95 98 Oxygen Delivery Room Air 08/14/25 00:00 08/14/25 04:00 08/14/25 04:00 Temperature 37.3 C Pulse Rate 119 H 99 118 H Respiratory Rate 18 Blood Pressure 150/88 H Pulse Oximetry 97 Oxygen Delivery 08/14/25 08:00 08/14/25 08:00 08/14/25 08:00 Temperature 36.2 C L Pulse Rate 114 H 114 H Respiratory Rate 18 Blood Pressure 144/84 H Pulse Oximetry 94 Oxygen Delivery Room Air Intake/Output Intake/Output: Intake & Output 08/11/25 08/12/25 08/13/25 08/14/25 23:59 23:59 23:59 23:59 Intake Total 2324 1750 3420 880 Output Total 1350 2405 8350 2150 Balance 670 -[phone] -[phone] -3976 Meds/Results Medications: Active Medications Generic Name Dose Route Start Last Admin Trade Name Freq PRN Reason Stop Dose Admin Albuterol 2 puff 08/10/25 13:04 Albuterol Sulfate (*Sp) Aerosol 1 Puff INHALATION Q6H PRN Shortness Of Breath Alvimopan 12 mg 08/11/25 21:00 08/12/25 10:30 Alvimopan 12 Mg Capsule PO 08/18/25 20:59 12 mg On Hold: 08/12/25 11:48 Q12HR ANNETTE Administration Enoxaparin Sodium 40 mg 08/11/25 09:00 08/12/25 10:30 Enoxaparin 40 Mg/0.4 Ml Syringe SUB-Q 40 mg On Hold: 08/12/25 17:18 DAILY ANNETTE Administration Famotidine 20 mg 08/10/25 21:00 08/14/25 08:12 Famotidine 20 Mg/2 Ml Vial IV PUSH 20 mg Q12HR ANNETTE Administration Hydrochlorothiazide 12.5 mg 08/11/25 09:00 08/12/25 10:31 Hydrochlorothiazide 12.5 Mg Capsule PO 12.5 mg On Hold: 08/12/25 11:48 QAM ANNETTE Administration Ibuprofen 800 mg in 200 mls @ 400 mls/hr 08/10/25 13:04 Caldolor 800 Mg/200 Ml IVPB Q6H PRN Breakthrough Pain Rated 1-3 or NPO Piperacillin Sod/Tazobactam 50 mls @ 100 mls/hr 08/12/25 12:00 08/14/25 06:10 Sod 3.375 gm/ Sodium Chloride IVPB Infused Q6H ANNETTE Infusion Potassium Chloride/Dextrose/Sod Cl 1,000 mls @ 125 mls/hr 08/12/25 12:00 08/14/25 10:45 Kcl 40 Meq/D5ns IV CONT Not Given .Q8H ANNETTE Sodium Chloride 1,000 mls @ 100 mls/hr 08/14/25 07:20 08/14/25 08:12 Normal Saline Iv IV CONT 100 mls/hr .Q10H ANNETTE Administration Losartan Potassium 100 mg 08/11/25 09:00 08/12/25 10:30 Losartan Potassium 100 Mg Tablet PO 100 mg On Hold: 08/12/25 11:48 DAILY ANNETTE Administration Morphine Sulfate 1 mg 08/13/25 18:43 Morphine Sulfate (*Crx) 4 Mg/Ml Inj IV PUSH Q2H PRN Breakthrough Pain Rated 4-6 or NPO Morphine Sulfate 2 mg 08/13/25 18:43 Morphine Sulfate (*Crx) 4 Mg/Ml Inj IV PUSH Q2H PRN Breakthrough Pain Rated 7-10 or NPO Naloxone HCl 0.1 mg 08/10/25 13:04 Naloxone Hcl 0.4 Mg/Ml Vial IV PUSH Q2M PRN Opiate Reversal Ondansetron HCl 4 mg 08/10/25 13:04 Ondansetron Inj 4 Mg/2 Ml Vial IV PUSH Q4H PRN Nausea And Vomiting Oxycodone/Acetaminophen 1 tablet 08/10/25 13:04 08/12/25 10:33 Oxycodone/Acetaminophen (*Crx) 5-325 Mg Tablet PO 1 tablet On Hold: 08/12/25 11:49 Q4H PRN Administration Pain Rated 4-6 Oxycodone/Acetaminophen 1 tab 08/10/25 13:04 08/11/25 15:28 Oxycodone/Acetaminophen (*Crx) 10-325 Mg Tablet PO 1 tab On Hold: 08/12/25 11:49 Q6H PRN Administration Pain Rated 7-10 Phenol 1 spray 08/12/25 15:01 08/14/25 08:07 Phenol/Sod Pheno [place] Wilde (*Bkc) MUCOUS MEM 1 spray PRN PRN Administration Sore Throat Tramadol HCl 50 mg 08/10/25 13:04 Tramadol Hcl (*Crx) 50 Mg Tablet PO On Hold: 08/12/25 11:49 Q4H PRN Pain Rated 1-3 Trazodone HCl 50 mg 08/10/25 13:04 Trazodone Hcl 50 Mg Tablet PO On Hold: 08/12/25 11:49 HS PRN Insomnia Umeclidinium/Vilanterol 1 puff 08/10/25 14:00 08/14/25 07:29 Umeclidinium/Vilanterol 62.5-25 Mcg Ellipta INHALATION 1 puff DAILY ANNETTE Administration Radiology Results: ITS Impressions Abdomen/Pelvis CT 08/12/25 08:47 IMPRESSION: 1. Intra-abdominal free air which is possibly postoperative.Viscus perforation is difficult to exclude. There is complex fluid within the pelvis with small amount of hemoperitoneum. Rim-enhancing fluid collections are noted suspicious for early abscess. 2. Small bowel obstruction detailed above Chest CTA 08/13/25 16:42 IMPRESSION: 1. Negative for pulmonary embolism. Bilateral probable pneumonia. 2. Intra-abdominal free air possibly postoperative in nature relatively unchanged compared to the previous exam Labs Labs: Laboratory Results - last 24 hr 08/13/25 08/13/25 08/13/25 15:44 19:47 19:58 WBC RBC Hgb Hct MCV MCH MCHC RDW Plt Count MPV Immature Gran % (Auto) Neut % (Auto) Lymph % (Auto) [place] % (Auto) Eos % (Auto) Baso % (Auto) Lymph # (Auto) [place] # (Auto) Eos # (Auto) Baso # (Auto) Abs Immat Gran (auto) Absolute Neuts (auto) Absolute Nucleated RBC Nucleated RBC % Sodium Potassium Chloride Carbon Dioxide Anion Gap BUN Creatinine Estim Creat Clear Calc Estimated GFR Glucose Lactic Acid 1.9 Calcium Troponin I < 0.012 < 0.012 C-Reactive Protein Procalcitonin 5.5 Urine Color Yellow Urine Appearance Clear Urine pH 5.5 Ur Specific [place] > 1.045 H Urine Protein 2+ H Urine Glucose (UA) Negative Urine Ketones Negative Ur Blood (Man) 2+ H Urine Nitrate Negative Urine Bilirubin Negative Urine Urobilinogen 0.2 Leukocyte Esterase Rfl Negative Urine RBC 6-10 H Urine WBC 0-5 Ur Squamous Epith Cells None seen Urine Bacteria None seen Urine Casts 0-2 Influenza A (RT-PCR) Influenza B (RT-PCR) RSV (RT-PCR) SARS-CoV-2 RNA (RT-PCR) 08/14/25 08/14/25 05:34 07:49 WBC 11.7 H RBC 4.35 L Hgb 14.4 Hct 43.0 MCV 98.9 MCH 33.1 MCHC 33.5 RDW 13.9 Plt Count 191 MPV 8.2 Immature Gran % (Auto) 0.4 Neut % (Auto) 87.5 H Lymph % (Auto) 4.5 L [place] % (Auto) 5.9 Eos % (Auto) 1.3 Baso % (Auto) 0.4 Lymph # (Auto) 0.53 L [place] # (Auto) 0.7 H Eos # (Auto) 0.2 Baso # (Auto) 0.1 Abs Immat Gran (auto) 0.05 H Absolute Neuts (auto) 10.3 H Absolute Nucleated RBC 0.000 Nucleated RBC % 0.0 Sodium 137 Potassium 4.0 Chloride 109 H Carbon Dioxide 20 L Anion Gap 8 BUN 14 Creatinine 1.07 Estim Creat Clear Calc 66 Estimated GFR > 60 Glucose 142 H Lactic Acid Calcium 8.2 L Troponin I C-Reactive Protein > 45.0 H Procalcitonin Urine Color Urine Appearance Urine pH Ur Specific [place] Urine Protein Urine Glucose (UA) Urine Ketones Ur Blood (Man) Urine Nitrate Urine Bilirubin Urine Urobilinogen Leukocyte Esterase Rfl Urine RBC Urine WBC Ur Squamous Epith Cells Urine Bacteria Urine Casts Influenza A (RT-PCR) Negative Influenza B (RT-PCR) Negative RSV (RT-PCR) Negative SARS-CoV-2 RNA (RT-PCR) Negative
[2025-08-14] MEDS: MORPHINE SULFATE (*CRX) 4 MG/ML INJ 2 MG IV PUSH (20:52)
[2025-08-15] VITALS: BP 147/82; PULSE 103; PULSE 108; RESP 18; TEMP 37.2; O2SAT 93
[2025-08-15] MEDS: PIPERACILLIN/TAZOBACTAM SOD 3.375 GM in SODIUM CHLORIDE 0.9% IV 50 ML 100 ML IVPB ×4 (00:39→17:33)
--- NOTE | 2025-08-15 01:56 | PC.NURSE ---
2100: Patient complains of 8/10 pain in abdomen. NG tube was clamped off per Dr. Jha. Gave patient appropriate dosing of morphine and replaced suction to low continuous. Made strict NPO, only mouth swabs. 500mL output within the hour, dark liquid. Abdomen still distended and firm. 0200: Patient states that the suction is not up high enough and that last night (actually during the day) they placed him on 120. Minimal output at this point, approximately 100mL. Still dark liquid in suction tubing.
[2025-08-15 04:00] VITALS: BP 139/85; PULSE 100; PULSE 101; RESP 18; TEMP 37.1; O2SAT 93
[2025-08-15 06:01] LABS: Hematocrit 39.5 % (42.0-52.0); Hemoglobin 12.9 g/dL (14.0-18.0); Mean Corpuscular HGB Conc 32.7 g/dl (32-36); Mean Corpuscular Hemoglobin 33.1 pg (26-34); Mean Corpuscular Volume 101.3 fl (80-100); Platelet Count Result 200 k/mm3 (150-375); Red Blood Count 3.90 M/mm3 (4.6-6.20); White Blood Count 10.2 K/mm3 (4.5-10.0)
[2025-08-15] MEDS: KCL 40 MEQ/D5/0.9% SOD CHL 1,000 ML 125 ML IV CONT (06:20)
[2025-08-15 06:38] LABS: Alanine Aminotransferase 9 U/L (6-50); Albumin Level 2.7 g/dL (3.5-5.1); Alkaline Phosphatase 59 U/L (38-126); Anion Gap 5 mmol/L (4-12); Aspartate Amino Transferase 18 U/L (17-59); Bilirubin,Total 0.9 mg/dL (0.2-1.3); Blood Urea Nitrogen 14 mg/dL (9-20); Calcium 8.2 mg/dL (8.4-10.2); Carbon Dioxide 21 mmol/L (22-30); Chloride 113 mmol/L (98-107); Estimated CRCL calculation 67 ml/min; Estimated Glomerular Filt Rate > 60; Glucose 122 mg/dL (65-110); Potassium 4.0 mmol/L (3.4-5.0); Sodium 139 mmol/L (137-145); Total Protein 6.1 g/dL (6.3-8.2)
[2025-08-15 06:57] LABS: Neutrophils Percent Manual 62 % (46-73); Total Cells Counted 100
[2025-08-15 06:58] LABS: Band Neutrophils Percent 23 % (0-6); Basophils Absolute Manual 0.10 K/mm3 (0.0-0.1); Basophils Percent Manual 1 % (0-1); Eosinophils Absolute Manual 0.10 K/mm3 (0.02-0.50); Eosinophils Percent Manual 1 % (0-4); Lymphocytes Absolute Manual 0.40 K/mm3 (1.1-4.5); Lymphocytes Percent Manual 4 % (18-44); Metamyelocytes Percent 1 %; Monocytes Absolute Manual 0.81 K/mm3 (0.1-0.90); Monocytes Percent Manual 8 % (3-9); Neutrophils Absolute Manual 8.67 K/mm3 (1.3-6.7); Tear Drop Cells Occasional
[2025-08-15 06:59] LABS: Burr Cells 2+; Schistocytes None Seen
[2025-08-15 07:11] LABS: CRP 33.7 mg/dL (<1.0)
--- NOTE | 2025-08-15 07:30 | P.PNIM_ITS ---
Progress Note: A&P Assessment and Plan (1) Obstruction of small intestine after surgical procedure: Code(s): K91.30 - Postprocedural intestinal obstruction, unspecified as to partial versus complete Status: Acute Assessment and Plan: SBO versus postop ileus. CT reads intra-abdominal free air (likely postoperative), complex fluid within the pelvis with small amount of hemoperitoneum. Rim enhancing fluid collections are noted and suspicious for early abscess. Multiple dilated loops of small bowel with decompressed small bowel loops in the pelvis. Spent a long time educating patient on the importance of ambulation after bowel surgery due to the risks of postoperative ileus and prolonged hospital stay. Patient states he has only been ambulating in his room to the bathroom. I strongly encouraged him to walk the halls explained the effects of surgery and opioids on his bowels and the importance of ambulation. Patient states he walks roughly 14,000 steps per day for his job. * NGT placed today-keep to low intermittent suction * clamp NG tube for ambulation * continue encouraging patient to ambulate in the halls * continue D5 NS with 40 of K @ 125 * 1 L NS bolus ordered due to tachycardia * Zosyn started on 08/12 * Chloraseptic spray for NGT discomfort * Monitor abdominal series: * KUB 08/13: NG tube within gastric fundus, persistent small bowel obstruction * KUB 08/14: Small bowel obstruction. The findings are progressed compared to the previous study with increased small bowel dilatation * KUB 08/15: Persistent small bowel obstruction * CT Abd/pelvis: * Ileus and/or developing small bowel obstruction. * Free intraperitoneal air favoring recent postoperative change. * Peritonitis, with scattered ascites and interloop fluid. * Worrisome for cystitis, unless recent catheter manipulation. * Significant bibasilar atelectasis and/or airspace disease, with small left effusion. * General surgery remains primary - continue to follow * CT guided drainage of pelvic fluid collection/hematoma * Cultures to be drawn for possibility of infectious hematoma * PICC line for TPN * Continue IV Zosyn (2) Sepsis: Code(s): A41.9 - Sepsis, unspecified organism Status: Acute Assessment and Plan: * Meets SIRS criteria: Leukocytosis, Tachycardia, tachypnea * lactic acid: 1.9 * Procalcitonin: 5.5 * suspected source: Intra-abdominal * blood cultures drawn on 08/13 * UA: Not indicative of infection * Urine culture not obtained * Chest CTA: Negative for pulmonary embolism. Bilateral probable pneumonia. Intraabdominal free air unchanged from previous exam * Continue Zosyn (3) Status post colon resection: Code(s): Z90.49 - Acquired absence of other specified parts of digestive tract Status: Acute Assessment and Plan: Patient underwent hand assisted lap sigmoidectomy with anastomosis on 08/10 due to frequent admissions for diverticulitis. * Post op 08/10/25 Hand access laparoscopic sigmoidectomy * pain control per surgery with ibuprofen, morphine, oxycodone * Entereg per surgery * continue to encourage incentive spirometry use. CT demonstrates atelectasis at the lung bases with small infiltrates * teach patient pillow splinting (4) Bloody stool: Code(s): K92.1 - Melena Status: Acute Assessment and Plan: Had 1 episode of bright red blood per rectum post first ambulation in the [facility] on 08/12. Patient denies shortness of breath or dizziness. * repeat hemoglobin 16.0 * continue to monitor * No episodes of bloody stool last night/this am * 11/:24: Hgb 12.9 (5) History of pulmonary embolism: Code(s): Z86.711 - Personal history of pulmonary embolism Status: Chronic Assessment and Plan: Patient with history of PE and DVT. On chronic Xarelto at home * continue to hold Xarelto * continue Lovenox (6) Hypertension: Qualifiers: Hypertension type: primary hypertension Qualified Code(s): I10 - Essential (primary) hypertension Code(s): I10 - Essential (primary) hypertension Status: Chronic Assessment and Plan: * Continue hydrochlorothiazide, Cozaar (7) Urethral stricture: Qualifiers: Urethral stricture sex-location: male urethra-unspecified Urethral stricture type: unspecified stricture type Qualified Code(s): N35.919 - Unspecified urethral stricture, male, unspecified site Code(s): N35.919 - Unspecified urethral stricture, male, unspecified site Status: Chronic Assessment and Plan: Bilateral ureteral stent placement and urethral meatal dilatation on 08/10. * Anand removed on 08/12 * continue to monitor urine output * Urology following (8) Bronchiectasis: Qualifiers: Bronchiectasis type: uncomplicated Qualified Code(s): J47.9 - Bronchiectasis, uncomplicated Code(s): J47.9 - Bronchiectasis, uncomplicated Status: Chronic Assessment and Plan: * Continue Anoro Ellipta daily, albuterol p.r.n. Plan Diet: Ice chips GI prophylaxis: NA DVT prophylaxis: Lovenox lines/drains: PIV, NGT Fluids: D5 NS with 40 of K @ 125 Code status: Full Subjective Date/time seen: 08/15/25 07:30 Interval history: 60 year old male with a past medical history of PE, HTN, DVT, bronchiectasis, diverticulitis requiring several inpatient admissions presented to [facility] on 08/10 for an elected sigmoidectomy to avoid further episodes of diverticulitis. 08/15/25: Patient sitting comfortably in bed at time of exam. S/p 5 days from sigmoidectomy. Surgery to order CT-guided drainage of pelvic fluid collection/hematoma as indicated on repeat a/p CT (which also showed persistent ileus). Will send cultures. Surgery to also order PICC line, to start TPN. Continue IV zosyn. Review of Systems Review of Systems: All systems reviewed & are unremarkable except as noted in HPI and below Exam Narrative: GENERAL: non-toxic appearing HEAD: Normocephalic, atraumatic. EYES: PERRLA. Conjunctivae clear. NOSE: NGT THROAT: Pharynx clear, no exudate. Patient constantly hacking and spitting out saliva post NGT placement NECK: Trachea midline. Thyroid not palpable. No adenopathy, no masses. RESPIRATORY: Airway patent, respirations nonlabored. CTA. CARDIOVASCULAR: Regular rate and rhythm GASTROINTESTINAL: Abdomen round, firm and tender to palpation. Lap sites approximated with surgical glue. Absent bowel sounds. NGT to LIS recently placed by surgeon-bilious output noted in canister GENITOURINARY: Defer MUSCULOSKELETAL: Moves all extremities. No gross deformities. SKIN: Warm, dry, normal color. Lap sites approximated. Clean dry and intact. NEURO: A&O X4. Speech clear PSYCHIATRIC: Normal interaction Objective Data Vital Signs Vital Signs: Vital Signs - 24 hr 08/14/25 08:00 08/14/25 08:00 08/14/25 08:00 Temperature 97.2 F L Pulse Rate 114 H 114 H Respiratory Rate 18 Blood Pressure 144/84 H Pulse Oximetry 94 Oxygen Delivery Room Air 08/14/25 12:00 08/14/25 13:08 08/14/25 16:00 Temperature 97.2 F L Pulse Rate 107 H 114 H 107 H Respiratory Rate 18 Blood Pressure 144/96 H Pulse Oximetry 94 Oxygen Delivery 08/14/25 16:00 08/14/25 20:00 08/14/25 20:00 Temperature 97.0 F L Pulse Rate 116 H 113 H 113 H Respiratory Rate 18 20 20 Blood Pressure 159/60 H 150/90 H Pulse Oximetry 96 96 96 Oxygen Delivery Room Air 08/14/25 20:00 08/15/25 00:00 08/15/25 00:00 Temperature 98.9 F Pulse Rate 100 103 H 108 H Respiratory Rate 18 Blood Pressure 147/82 H Pulse Oximetry 93 Oxygen Delivery 08/15/25 04:00 08/15/25 04:00 Temperature 98.8 F Pulse Rate 101 H 100 Respiratory Rate 18 Blood Pressure 139/85 Pulse Oximetry 93 Oxygen Delivery Intake/Output Intake/Output: Intake & Output 08/12/25 08/13/25 08/14/25 08/15/25 23:59 23:59 23:59 23:59 Intake Total 1750 3420 3070 1100 Output Total 2405 6300 2800 400 Balance -401 -7017 270 700 Meds/Results Medications: Active Medications Generic Name Dose Route Start Last Admin Trade Name Freq PRN Reason Stop Dose Admin Albuterol 2 puff 08/10/25 13:04 Albuterol Sulfate (*Sp) Aerosol 1 Puff INHALATION Q6H PRN Shortness Of Breath Alvimopan 12 mg 08/11/25 21:00 08/12/25 10:30 Alvimopan 12 Mg Capsule PO 08/18/25 20:59 12 mg On Hold: 08/12/25 11:48 Q12HR ANNETTE Administration Enoxaparin Sodium 40 mg 08/11/25 09:00 08/12/25 10:30 Enoxaparin 40 Mg/0.4 Ml Syringe SUB-Q 40 mg On Hold: 08/12/25 17:18 DAILY ANNETTE Administration Famotidine 20 mg 08/10/25 21:00 08/14/25 20:40 Famotidine 20 Mg/2 Ml Vial IV PUSH 20 mg Q12HR ANNETTE Administration Hydrochlorothiazide 12.5 mg 08/11/25 09:00 08/12/25 10:31 Hydrochlorothiazide 12.5 Mg Capsule PO 12.5 mg On Hold: 08/12/25 11:48 QAM ANNETTE Administration Ibuprofen 800 mg in 200 mls @ 400 mls/hr 08/10/25 13:04 Caldolor 800 Mg/200 Ml IVPB Q6H PRN Breakthrough Pain Rated 1-3 or NPO Piperacillin Sod/Tazobactam 50 mls @ 100 mls/hr 08/12/25 12:00 08/15/25 06:18 Sod 3.375 gm/ Sodium Chloride IVPB Infused Q6H ANNETTE Infusion Potassium Chloride/Dextrose/Sod Cl 1,000 mls @ 125 mls/hr 08/12/25 12:00 08/15/25 06:20 Kcl 40 Meq/D5ns IV CONT 125 mls/hr .Q8H ANNETTE Administration Losartan Potassium 100 mg 08/11/25 09:00 08/12/25 10:30 Losartan Potassium 100 Mg Tablet PO 100 mg On Hold: 08/12/25 11:48 DAILY ANNETTE Administration Morphine Sulfate 1 mg 08/13/25 18:43 Morphine Sulfate (*Crx) 4 Mg/Ml Inj IV PUSH Q2H PRN Breakthrough Pain Rated 4-6 or NPO Morphine Sulfate 2 mg 08/13/25 18:43 08/14/25 20:52 Morphine Sulfate (*Crx) 4 Mg/Ml Inj IV PUSH 2 mg Q2H PRN Administration Breakthrough Pain Rated 7-10 or NPO Naloxone HCl 0.1 mg 08/10/25 13:04 Naloxone Hcl 0.4 Mg/Ml Vial IV PUSH Q2M PRN Opiate Reversal Ondansetron HCl 4 mg 08/10/25 13:04 Ondansetron Inj 4 Mg/2 Ml Vial IV PUSH Q4H PRN Nausea And Vomiting Oxycodone/Acetaminophen 1 tablet 08/10/25 13:04 08/12/25 10:33 Oxycodone/Acetaminophen (*Crx) 5-325 Mg Tablet PO 1 tablet On Hold: 08/12/25 11:49 Q4H PRN Administration Pain Rated 4-6 Oxycodone/Acetaminophen 1 tab 08/10/25 13:04 08/11/25 15:28 Oxycodone/Acetaminophen (*Crx) 10-325 Mg Tablet PO 1 tab On Hold: 08/12/25 11:49 Q6H PRN Administration Pain Rated 7-10 Phenol 1 spray 08/12/25 15:01 08/14/25 15:36 Phenol/Sod Pheno [place] Wilde (*Bkc) MUCOUS MEM 1 spray PRN PRN Administration Sore Throat Tramadol HCl 50 mg 08/10/25 13:04 Tramadol Hcl (*Crx) 50 Mg Tablet PO On Hold: 08/12/25 11:49 Q4H PRN Pain Rated 1-3 Trazodone HCl 50 mg 08/10/25 13:04 Trazodone Hcl 50 Mg Tablet PO On Hold: 08/12/25 11:49 HS PRN Insomnia Umeclidinium/Vilanterol 1 puff 08/10/25 14:00 08/14/25 07:29 Umeclidinium/Vilanterol 62.5-25 Mcg Ellipta INHALATION 1 puff DAILY ANNETTE Administration Radiology Results: ITS Impressions Abdomen/Pelvis CT 08/12/25 08:47 IMPRESSION: 1. Intra-abdominal free air which is possibly postoperative.Viscus perforation is difficult to exclude. There is complex fluid within the pelvis with small amount of hemoperitoneum. Rim-enhancing fluid collections are noted suspicious for early abscess. 2. Small bowel obstruction detailed above Chest CTA 08/13/25 16:42 IMPRESSION: 1. Negative for pulmonary embolism. Bilateral probable pneumonia. 2. Intra-abdominal free air possibly postoperative in nature relatively unchanged compared to the previous exam Abdomen X-Ray 08/15/25 07:06 Impression: 1: Persistent small bowel obstruction. Labs Labs: Laboratory Results - last 24 hr 08/14/25 08/14/25 08/15/25 07:49 13:41 05:47 WBC 10.2 H RBC 3.90 L Hgb 12.9 L Hct 39.5 L MCV 101.3 H MCH 33.1 MCHC 32.7 RDW 14.2 Plt Count 200 MPV 8.3 Immature Gran % (Auto) Not Reportable Neut % (Auto) Not Reportable Lymph % (Auto) Not Reportable [place] % (Auto) Not Reportable Eos % (Auto) Not Reportable Baso % (Auto) Not Reportable Lymph # (Auto) Not Reportable [place] # (Auto) Not Reportable Eos # (Auto) Not Reportable Baso # (Auto) Not Reportable Abs Immat Gran (auto) Not Reportable Absolute Neuts (auto) Not Reportable Absolute Nucleated RBC Not Reportable Total Counted 100 Neutrophils % (Manual) 62 Band Neutrophils % 23 H Lymphocytes % (Manual) 4 L Monocytes % (Manual) 8 Eosinophils % (Manual) 1 Basophils % (Manual) 1 Metamyelocytes % 1 Nucleated RBC % Not Reportable Abs Neuts (Manual) 8.67 H Abs Lymphs (Manual) 0.40 L Abs Monocytes (Manual) 0.81 Absolute Eos (Manual) 0.10 Abs Basophils (Manual) 0.10 Atypical Lymphocytes Present Platelet Estimate Adequate Tear Drop Cells Occasional [place] Cells 2+ Schistocytes None seen Sodium 139 Potassium 4.0 Chloride 113 H Carbon Dioxide 21 L Anion Gap 5 BUN 14 Creatinine 1.06 Estim Creat Clear Calc 67 Estimated GFR > 60 Glucose 122 H Calcium 8.2 L Total Bilirubin 0.9 AST 18 ALT 9 Alkaline Phosphatase 59 C-Reactive Protein 33.7 H Total Protein 6.1 L Albumin 2.7 L Influenza A (RT-PCR) Negative Influenza B (RT-PCR) Negative Legionella Source Cancelled Legionella Culture Cancelled Legionella Cult Status Cancelled RSV (RT-PCR) Negative SARS-CoV-2 RNA (RT-PCR) Negative Quality VTE Prophylaxis VTE prophylaxis: pharmacologic ordered
--- NOTE | 2025-08-15 07:41 | P.PNGS_ITS ---
Progress Note: A&P Assessment and Plan (1) Obstruction of small intestine after surgical procedure: Code(s): K91.30 - Postprocedural intestinal obstruction, unspecified as to partial versus complete Status: Acute Assessment and Plan: Ileus/small-bowel obstruction still present. Will get CT scan abdomen and pelvis. Continue nasogastric tube to suction. Resume NPO. (2) Protein-calorie malnutrition, severe: Code(s): E43 - Unspecified severe protein-calorie malnutrition Status: Acute Assessment and Plan: Patient now 5 days status post sigmoidectomy. Had some liquids 1st day but nothing of significant nutritional value after postop day 2. Will have PICC line placed and start Clinimix TPN. (3) Status post colon resection: Code(s): Z90.49 - Acquired absence of other specified parts of digestive tract Status: Acute Assessment and Plan: Postop day 5. CT scan is pending to evaluate for potential abscess or other malady causing his bowel obstruction. 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 (7) Bronchiectasis: Qualifiers: Bronchiectasis type: uncomplicated Qualified Code(s): J47.9 - Bronchiectasis, uncomplicated Code(s): J47.9 - Bronchiectasis, uncomplicated Status: Chronic Assessment and Plan: Not creating significant problems at this time. Patient's O2 sats are in the mid 90s on room air. Coughing has improved with NG suction and removal of retained enteric content. Subjective Subjective Date/Time Seen: 08/15/25 07:41 Post Op day: 5 Patient reports: pain is less, voiding w/o difficulty, bowel movement, nausea, vomiting and afebrile Interval history: Patient became severely nauseated last night. Experienced bloating and abdominal distension. Nasogastric tube placed back to suction. 900 cc drained since then. Patient has abdominal discomfort and nausea have resolved. Exam Const: General: cooperative, comfortable, awake and tired appearing; No acute distress Nutritional Appearance: thin Orientation/consciousness: patient oriented x3 and No confusion GI: Inspection: abdominal wall ecchymosis, distended and incision (Ecchymosis as before, dry, no erythema or drainage) GI Palp: Yes Firmness to palpation present (GI), Yes Tenderness to palpation present (GI), No Guarding due to palpation present (GI) and No Rebound tenderness present Auscultation: absent bowel sounds Objective Data Vital Signs Vital Signs: Vital Signs - 24 hr 08/14/25 08:00 08/14/25 08:00 08/14/25 08:00 Temperature 36.2 C L Pulse Rate 114 H 114 H Respiratory Rate 18 Blood Pressure 144/84 H Pulse Oximetry 94 Oxygen Delivery Room Air 08/14/25 12:00 08/14/25 13:08 08/14/25 16:00 Temperature 36.2 C L Pulse Rate 107 H 114 H 107 H Respiratory Rate 18 Blood Pressure 144/96 H Pulse Oximetry 94 Oxygen Delivery 08/14/25 16:00 08/14/25 20:00 08/14/25 20:00 Temperature 36.1 C L Pulse Rate 116 H 113 H 113 H Respiratory Rate 18 20 20 Blood Pressure 159/60 H 150/90 H Pulse Oximetry 96 96 96 Oxygen Delivery Room Air 08/14/25 20:00 08/15/25 00:00 08/15/25 00:00 Temperature 37.2 C Pulse Rate 100 103 H 108 H Respiratory Rate 18 Blood Pressure 147/82 H Pulse Oximetry 93 Oxygen Delivery 08/15/25 04:00 08/15/25 04:00 Temperature 37.1 C Pulse Rate 101 H 100 Respiratory Rate 18 Blood Pressure 139/85 Pulse Oximetry 93 Oxygen Delivery Intake/Output Intake/Output: Intake & Output 08/12/25 08/13/25 08/14/25 08/15/25 23:59 23:59 23:59 23:59 Intake Total 1750 3420 3070 1100 Output Total 2405 6300 2800 400 Balance -398 -7373 270 700 Meds/Results Medications: Active Medications Generic Name Dose Route Start Last Admin Trade Name Freq PRN Reason Stop Dose Admin Albuterol 2 puff 08/10/25 13:04 Albuterol Sulfate (*Sp) Aerosol 1 Puff INHALATION Q6H PRN Shortness Of Breath Alvimopan 12 mg 08/11/25 21:00 08/12/25 10:30 Alvimopan 12 Mg Capsule PO 08/18/25 20:59 12 mg On Hold: 08/12/25 11:48 Q12HR ANNETTE Administration Enoxaparin Sodium 40 mg 08/11/25 09:00 08/12/25 10:30 Enoxaparin 40 Mg/0.4 Ml Syringe SUB-Q 40 mg On Hold: 08/12/25 17:18 DAILY ANNETTE Administration Famotidine 20 mg 08/10/25 21:00 08/14/25 20:40 Famotidine 20 Mg/2 Ml Vial IV PUSH 20 mg Q12HR ANNETTE Administration Hydrochlorothiazide 12.5 mg 08/11/25 09:00 08/12/25 10:31 Hydrochlorothiazide 12.5 Mg Capsule PO 12.5 mg On Hold: 08/12/25 11:48 QAM ANNETTE Administration Ibuprofen 800 mg in 200 mls @ 400 mls/hr 08/10/25 13:04 Caldolor 800 Mg/200 Ml IVPB Q6H PRN Breakthrough Pain Rated 1-3 or NPO Piperacillin Sod/Tazobactam 50 mls @ 100 mls/hr 08/12/25 12:00 08/15/25 06:18 Sod 3.375 gm/ Sodium Chloride IVPB Infused Q6H ANNETTE Infusion Potassium Chloride/Dextrose/Sod Cl 1,000 mls @ 125 mls/hr 08/12/25 12:00 08/15/25 06:20 Kcl 40 Meq/D5ns IV CONT 125 mls/hr .Q8H ANNETTE Administration Losartan Potassium 100 mg 08/11/25 09:00 08/12/25 10:30 Losartan Potassium 100 Mg Tablet PO 100 mg On Hold: 08/12/25 11:48 DAILY ANNETTE Administration Morphine Sulfate 1 mg 08/13/25 18:43 Morphine Sulfate (*Crx) 4 Mg/Ml Inj IV PUSH Q2H PRN Breakthrough Pain Rated 4-6 or NPO Morphine Sulfate 2 mg 08/13/25 18:43 08/14/25 20:52 Morphine Sulfate (*Crx) 4 Mg/Ml Inj IV PUSH 2 mg Q2H PRN Administration Breakthrough Pain Rated 7-10 or NPO Naloxone HCl 0.1 mg 08/10/25 13:04 Naloxone Hcl 0.4 Mg/Ml Vial IV PUSH Q2M PRN Opiate Reversal Ondansetron HCl 4 mg 08/10/25 13:04 Ondansetron Inj 4 Mg/2 Ml Vial IV PUSH Q4H PRN Nausea And Vomiting Oxycodone/Acetaminophen 1 tablet 08/10/25 13:04 08/12/25 10:33 Oxycodone/Acetaminophen (*Crx) 5-325 Mg Tablet PO 1 tablet On Hold: 08/12/25 11:49 Q4H PRN Administration Pain Rated 4-6 Oxycodone/Acetaminophen 1 tab 08/10/25 13:04 08/11/25 15:28 Oxycodone/Acetaminophen (*Crx) 10-325 Mg Tablet PO 1 tab On Hold: 08/12/25 11:49 Q6H PRN Administration Pain Rated 7-10 Phenol 1 spray 08/12/25 15:01 08/14/25 15:36 Phenol/Sod Pheno Secor Wilde (*Bkc) MUCOUS MEM 1 spray PRN PRN Administration Sore Throat Tramadol HCl 50 mg 08/10/25 13:04 Tramadol Hcl (*Crx) 50 Mg Tablet PO On Hold: 08/12/25 11:49 Q4H PRN Pain Rated 1-3 Trazodone HCl 50 mg 08/10/25 13:04 Trazodone Hcl 50 Mg Tablet PO On Hold: 08/12/25 11:49 HS PRN Insomnia Umeclidinium/Vilanterol 1 puff 08/10/25 14:00 08/14/25 07:29 Umeclidinium/Vilanterol 62.5-25 Mcg Ellipta INHALATION 1 puff DAILY ANNETTE Administration Radiology Results: ITS Impressions Abdomen/Pelvis CT 08/12/25 08:47 IMPRESSION: 1. Intra-abdominal free air which is possibly postoperative.Viscus perforation is difficult to exclude. There is complex fluid within the pelvis with small amount of hemoperitoneum. Rim-enhancing fluid collections are noted suspicious for early abscess. 2. Small bowel obstruction detailed above Chest CTA 08/13/25 16:42 IMPRESSION: 1. Negative for pulmonary embolism. Bilateral probable pneumonia. 2. Intra-abdominal free air possibly postoperative in nature relatively unchanged compared to the previous exam Abdomen X-Ray 08/15/25 07:06 Impression: 1: Persistent small bowel obstruction. Labs Labs: Laboratory Results - last 24 hr 08/14/25 08/14/25 08/15/25 07:49 13:41 05:47 WBC 10.2 H RBC 3.90 L Hgb 12.9 L Hct 39.5 L MCV 101.3 H MCH 33.1 MCHC 32.7 RDW 14.2 Plt Count 200 MPV 8.3 Immature Gran % (Auto) Not Reportable Neut % (Auto) Not Reportable Lymph % (Auto) Not Reportable [place] % (Auto) Not Reportable Eos % (Auto) Not Reportable Baso % (Auto) Not Reportable Lymph # (Auto) Not Reportable [place] # (Auto) Not Reportable Eos # (Auto) Not Reportable Baso # (Auto) Not Reportable Abs Immat Gran (auto) Not Reportable Absolute Neuts (auto) Not Reportable Absolute Nucleated RBC Not Reportable Total Counted 100 Neutrophils % (Manual) 62 Band Neutrophils % 23 H Lymphocytes % (Manual) 4 L Monocytes % (Manual) 8 Eosinophils % (Manual) 1 Basophils % (Manual) 1 Metamyelocytes % 1 Nucleated RBC % Not Reportable Abs Neuts (Manual) 8.67 H Abs Lymphs (Manual) 0.40 L Abs Monocytes (Manual) 0.81 Absolute Eos (Manual) 0.10 Abs Basophils (Manual) 0.10 Atypical Lymphocytes Present Platelet Estimate Adequate Tear Drop Cells Occasional [place] Cells 2+ Schistocytes None seen Sodium 139 Potassium 4.0 Chloride 113 H Carbon Dioxide 21 L Anion Gap 5 BUN 14 Creatinine 1.06 Estim Creat Clear Calc 67 Estimated GFR > 60 Glucose 122 H Calcium 8.2 L Total Bilirubin 0.9 AST 18 ALT 9 Alkaline Phosphatase 59 C-Reactive Protein 33.7 H Total Protein 6.1 L Albumin 2.7 L Influenza A (RT-PCR) Negative Influenza B (RT-PCR) Negative Legionella Source Cancelled Legionella Culture Cancelled Legionella Cult Status Cancelled RSV (RT-PCR) Negative SARS-CoV-2 RNA (RT-PCR) Negative Imaging Attestation: I personally reviewed and interpreted this imaging study as foll ows: (Abdominal plain film from this morning) My impression: Nasogastric tube remains in the stomach, dilated small bowel out of proportion to gas in the colon. Radiologist's impression: Persistent small bowel obstruction
[2025-08-15 08:00] VITALS: BP 130/92; PULSE 106; PULSE 92; RESP 18; TEMP 36.2; O2SAT 93
[2025-08-15] MEDS: UMECLIDINIUM/VILANTEROL 62.5-25 MCG ELLIPTA 1 PUFF INHALATION (08:10)
[2025-08-15 08:15] LABS: Magnesium 1.9 mg/dL (1.6-2.3)
[2025-08-15 08:22] LABS: Transferrin 130 mg/dL (206-381)
[2025-08-15 08:39] LABS: Partial Thromboplastin Time 36.8 Seconds (22.3-36.8)
[2025-08-15] MEDS: FAMOTIDINE 20 MG/2 ML VIAL IV PUSH ×2 (08:56→20:15)
[2025-08-15 10:30] VITALS: BMI 25.4
[2025-08-15] MEDS: LIDOCAINE 1% PF INJ 5 ML VIAL INFILTRATE (10:40)
[2025-08-15 12:00] VITALS: BP 151/89; PULSE 101; PULSE 99; RESP 18; TEMP 36.3; O2SAT 94
[2025-08-15] MEDS: AMINO ACIDS 5%/D15W/E-LYTES/CA 1,000 ML with MULTIVITAMINS-12 INJ VIAL 1 1.25 ML, MULTI... 40 ML IV CONT (12:40)
[2025-08-15] MEDS: FAT EMULSIONS IV 20% 250 ML 20.83 ML IVPB (12:41)
[2025-08-15 16:00] VITALS: BP 149/89; PULSE 99
[2025-08-15] MEDS: KCL 40 MEQ/D5/0.9% SOD CHL 1,000 ML 80 ML IV CONT (17:10)
[2025-08-15 20:00] VITALS: BP 147/87; PULSE 103; RESP 16; TEMP 37.2; O2SAT 93
[2025-08-15] MEDS: MORPHINE SULFATE (*CRX) 4 MG/ML INJ 1 MG IV PUSH (20:14)
[2025-08-16] VITALS (17 sets, daily range): BP systolic 131–198; BP diastolic 38–110; PULSE 95–107; RESP 16–28; TEMP 36.6–37.4; O2SAT 93–100
[2025-08-16] MEDS: PIPERACILLIN/TAZOBACTAM SOD 3.375 GM in SODIUM CHLORIDE 0.9% IV 50 ML 100 ML IVPB ×5 (00:26→23:27)
[2025-08-16] MEDS: CENTRAL LINE FLUSH 10 ML IV PUSH ×3 (06:15→20:41)
[2025-08-16 06:24] LABS: Hematocrit 38.6 % (42.0-52.0); Hemoglobin 12.7 g/dL (14.0-18.0); Immature Granulocyte Percent A 1.2 % (0-0.5); Lymphocytes Absolute Auto 0.81 K/mm3 (0.9-3.2); Mean Corpuscular HGB Conc 32.9 g/dl (32-36); Mean Corpuscular Hemoglobin 33.4 pg (26-34); Mean Corpuscular Volume 101.6 fl (80-100); Nucleated Red Blood Cells Absolute Auto 0.000 K/mm3 (0.0-0.012); Nucleated Red Blood Cells Perc 0.0 % (0.0-0.2); Platelet Count Result 209 k/mm3 (150-375); Red Blood Count 3.80 M/mm3 (4.6-6.20); White Blood Count 10.3 K/mm3 (4.5-10.0)
[2025-08-16 06:37] LABS: INR 1.2; Prothrombin Time 14.9 Seconds (11.1-14.7)
[2025-08-16 06:38] LABS: Partial Thromboplastin Time 36.2 Seconds (22.3-36.8)
[2025-08-16 06:46] LABS: Anion Gap 6 mmol/L (4-12); Blood Urea Nitrogen 10 mg/dL (9-20); Calcium 8.3 mg/dL (8.4-10.2); Carbon Dioxide 22 mmol/L (22-30); Chloride 107 mmol/L (98-107); Estimated CRCL calculation 69 ml/min; Estimated Glomerular Filt Rate > 60; Glucose 104 mg/dL (65-110); Potassium 3.9 mmol/L (3.4-5.0); Sodium 135 mmol/L (137-145); Triglycerides 146 mg/dL (<150)
[2025-08-16] MEDS: KCL 40 MEQ/D5/0.9% SOD CHL 1,000 ML 80 ML IV CONT ×2 (07:31→20:41)
--- NOTE | 2025-08-16 07:43 | P.PNIM_ITS ---
Progress Note: A&P Assessment and Plan (1) Obstruction of small intestine after surgical procedure: Code(s): K91.30 - Postprocedural intestinal obstruction, unspecified as to partial versus complete Status: Acute Assessment and Plan: SBO versus postop ileus. CT reads intra-abdominal free air (likely postoperative), complex fluid within the pelvis with small amount of hemoperitoneum. Rim enhancing fluid collections are noted and suspicious for early abscess. Multiple dilated loops of small bowel with decompressed small bowel loops in the pelvis. Spent a long time educating patient on the importance of ambulation after bowel surgery due to the risks of postoperative ileus and prolonged hospital stay. Patient states he has only been ambulating in his room to the bathroom. I strongly encouraged him to walk the halls explained the effects of surgery and opioids on his bowels and the importance of ambulation. Patient states he walks roughly 14,000 steps per day for his job. * NGT placed today-keep to low intermittent suction * clamp NG tube for ambulation * continue encouraging patient to ambulate in the halls * continue D5 NS with 40 of K @ 125 * 1 L NS bolus ordered due to tachycardia * Zosyn started on 08/12 * Chloraseptic spray for NGT discomfort * Monitor abdominal series: * KUB 08/13: NG tube within gastric fundus, persistent small bowel obstruction * KUB 08/14: Small bowel obstruction. The findings are progressed compared to the previous study with increased small bowel dilatation * KUB 08/15: Persistent small bowel obstruction * CT Abd/pelvis: * Ileus and/or developing small bowel obstruction. * Free intraperitoneal air favoring recent postoperative change. * Peritonitis, with scattered ascites and interloop fluid. * Worrisome for cystitis, unless recent catheter manipulation. * Significant bibasilar atelectasis and/or airspace disease, with small left effusion. * General surgery remains primary - continue to follow * CT guided drainage of pelvic fluid collection/hematoma today * Cultures to be drawn for possibility of infectious hematoma * PICC line for TPN * Continue IV Zosyn (2) Sepsis: Code(s): A41.9 - Sepsis, unspecified organism Status: Acute Assessment and Plan: * Meets SIRS criteria: Leukocytosis, Tachycardia, tachypnea * lactic acid: 1.9 * Procalcitonin: 5.5 * suspected source: Intra-abdominal * blood cultures drawn on 08/13 * UA: Not indicative of infection * Urine culture not obtained * Chest CTA: Negative for pulmonary embolism. Bilateral probable pneumonia. Intraabdominal free air unchanged from previous exam * Continue Zosyn (3) Status post colon resection: Code(s): Z90.49 - Acquired absence of other specified parts of digestive tract Status: Acute Assessment and Plan: Patient underwent hand assisted lap sigmoidectomy with anastomosis on 08/10 due to frequent admissions for diverticulitis. * Post op 08/10/25 Hand access laparoscopic sigmoidectomy * pain control per surgery with ibuprofen, morphine, oxycodone * Entereg per surgery * continue to encourage incentive spirometry use. CT demonstrates atelectasis at the lung bases with small infiltrates * teach patient pillow splinting (4) Bloody stool: Code(s): K92.1 - Melena Status: Acute Assessment and Plan: Had 1 episode of bright red blood per rectum post first ambulation in the [facility] on 08/12. Patient denies shortness of breath or dizziness. * repeat hemoglobin 16.0 * continue to monitor * No episodes of bloody stool last night/this am * : Hgb 12.7 (5) History of pulmonary embolism: Code(s): Z86.711 - Personal history of pulmonary embolism Status: Chronic Assessment and Plan: Patient with history of PE and DVT. On chronic Xarelto at home * continue to hold Xarelto * continue Lovenox (6) Hypertension: Qualifiers: Hypertension type: primary hypertension Qualified Code(s): I10 - Essential (primary) hypertension Code(s): I10 - Essential (primary) hypertension Status: Chronic Assessment and Plan: * Continue hydrochlorothiazide, Cozaar (7) Urethral stricture: Qualifiers: Urethral stricture sex-location: male urethra-unspecified Urethral stricture type: unspecified stricture type Qualified Code(s): N35.919 - Unspecified urethral stricture, male, unspecified site Code(s): N35.919 - Unspecified urethral stricture, male, unspecified site Status: Chronic Assessment and Plan: Bilateral ureteral stent placement and urethral meatal dilatation on 08/10. * Anand removed on 08/12 * continue to monitor urine output * Urology following (8) Bronchiectasis: Qualifiers: Bronchiectasis type: uncomplicated Qualified Code(s): J47.9 - Bronchiectasis, uncomplicated Code(s): J47.9 - Bronchiectasis, uncomplicated Status: Chronic Assessment and Plan: * Continue Anoro Ellipta daily, albuterol p.r.n. Plan Diet: Ice chips GI prophylaxis: NA DVT prophylaxis: Lovenox lines/drains: PIV, NGT Fluids: D5 NS with 40 of K @ 125 Code status: Full Subjective Date/time seen: 08/16/25 07:43 Interval history: 60 year old male with a past medical history of PE, HTN, DVT, bronchiectasis, diverticulitis requiring several inpatient admissions presented to [facility] on 08/10 for an elected sigmoidectomy to avoid further episodes of diverticulitis. 08/16/25: Patient sitting comfortably in bed at time of exam. Post op 08/10/25 hand access laparoscopic sigmoidectomy & urethral meatal dilation. Plan for transgluteal pelvic abscess drain placement. Pt examined before procedure, denies any chest pain, shortness of breath, n/v. Still having some abdominal discomfort, unchanged since yesterday. Remains afebrile, slight leukocytosis with WBC 10.5, otherwise no electrolyte abnormalities. Review of Systems Review of Systems: All systems reviewed & are unremarkable except as noted in HPI and below Exam Narrative: GENERAL: non-toxic appearing HEAD: Normocephalic, atraumatic. EYES: PERRLA. Conjunctivae clear. NOSE: NGT THROAT: Pharynx clear, no exudate. Patient constantly hacking and spitting out saliva post NGT placement NECK: Trachea midline. Thyroid not palpable. No adenopathy, no masses. RESPIRATORY: Airway patent, respirations nonlabored. CTA. CARDIOVASCULAR: Regular rate and rhythm GASTROINTESTINAL: Abdomen round, firm and tender to palpation. Lap sites approximated with surgical glue. Absent bowel sounds. NGT to LIS recently placed by surgeon-bilious output noted in canister GENITOURINARY: Defer MUSCULOSKELETAL: Moves all extremities. No gross deformities. SKIN: Warm, dry, normal color. Lap sites approximated. Clean dry and intact. NEURO: A&O X4. Speech clear PSYCHIATRIC: Normal interaction Objective Data Vital Signs Vital Signs: Vital Signs - 24 hr 08/15/25 08:00 08/15/25 08:00 08/15/25 08:55 Temperature 97.2 F L Pulse Rate 106 H 92 Respiratory Rate 18 Blood Pressure 130/92 H Pulse Oximetry 93 Oxygen Delivery Room Air 08/15/25 12:00 08/15/25 12:00 08/15/25 16:00 Temperature 97.4 F L Pulse Rate 101 H 99 99 Respiratory Rate 18 Blood Pressure 151/89 H Pulse Oximetry 94 Oxygen Delivery 08/15/25 16:00 08/15/25 20:00 08/16/25 00:00 Temperature 98.9 F 99.4 F Pulse Rate 103 H 107 H Respiratory Rate 16 16 Blood Pressure 149/89 H 147/87 H 146/38 H Pulse Oximetry 93 93 Oxygen Delivery 08/16/25 04:00 Temperature 97.8 F Pulse Rate 98 Respiratory Rate 18 Blood Pressure 131/67 Pulse Oximetry 94 Oxygen Delivery Intake/Output Intake/Output: Intake & Output 08/13/25 08/14/25 08/15/25 08/16/25 23:59 23:59 23:59 23:59 Intake Total 3420 3070 2200.0 1300 Output Total 6300 2800 1800 700 Balance -2880 270 400.0 600 Meds/Results Medications: Active Medications Generic Name Dose Route Start Last Admin Trade Name Freq PRN Reason Stop Dose Admin Albuterol 2 puff 08/10/25 13:04 Albuterol Sulfate (*Sp) Aerosol 1 Puff INHALATION Q6H PRN Shortness Of Breath Dextrose 12.5 gm 08/15/25 07:56 Dextrose 50% 25 Gm/50 Ml Syringe IV PUSH PRN PRN Hypoglycemia Protocol Enoxaparin Sodium 40 mg 08/11/25 09:00 08/12/25 10:30 Enoxaparin 40 Mg/0.4 Ml Syringe SUB-Q 40 mg On Hold: 08/12/25 17:18 DAILY ANNETTE Administration Famotidine 20 mg 08/10/25 21:00 08/15/25 20:15 Famotidine 20 Mg/2 Ml Vial IV PUSH 20 mg Q12HR ANNETTE Administration Glucagon 1 mg 08/15/25 07:56 Glucagon For Inj 1 Mg Vial IM PRN PRN Hypoglycemia Protocol Glucose 15 gm 08/15/25 07:56 Glucose Oral Gel 15 Gm Of Glucse In 37.5 Gm Tube PO PRN PRN Hypoglycemia Protocol Hydrochlorothiazide 12.5 mg 08/11/25 09:00 08/12/25 10:31 Hydrochlorothiazide 12.5 Mg Capsule PO 12.5 mg On Hold: 08/12/25 11:48 QAM ANNETTE Administration Ibuprofen 800 mg in 200 mls @ 400 mls/hr 08/10/25 13:04 Caldolor 800 Mg/200 Ml IVPB Q6H PRN Breakthrough Pain Rated 1-3 or NPO Piperacillin Sod/Tazobactam 50 mls @ 100 mls/hr 08/12/25 12:00 08/16/25 06:11 Sod 3.375 gm/ Sodium Chloride IVPB 100 mls/hr Q6H ANNETTE Administration Potassium Chloride/Dextrose/Sod Cl 1,000 mls @ 80 mls/hr 08/12/25 12:00 08/16/25 07:31 Kcl 40 Meq/D5ns IV CONT 80 mls/hr .[id number] ANNETTE Administration Dextrose 1,000 mls @ 50 mls/hr 08/15/25 07:56 Dextrose 10% IV CONT .Q20H PRN if PN is interrupted Dextrose 1,000 mls @ 100 mls/hr 08/15/25 07:56 Dextrose 5% 1,000 Ml IVPB PRN PRN Hypoglycemia Protocol Multivitamins 1.25 ml/ 1,002.5 mls @ 40 mls/hr 08/15/25 12:00 08/15/25 12:40 Multivitamins 1.25 ml/ Amino IV CONT 40 mls/hr Acids/Electrolytes/Dextrose .Q24H ANNETTE Administration Protocol Fat Emulsion Intravenous 250 mls @ 20.833 mls/hr 08/15/25 12:00 08/16/25 00:45 Lipids 20% IVPB Infused Q24H ANNETTE Infusion Insulin Aspart 3 - 6 units 08/15/25 08:00 08/15/25 18:27 Insulin Aspart (*Bkc) 100 Units/Ml SUB-Q Not Given TIDWM [facility] Protocol Insulin Aspart 1 - 3 units 08/15/25 21:00 08/16/25 00:20 Insulin Aspart (*Bkc) 100 Units/Ml SUB-Q Not Given HS ANNETTE Protocol Losartan Potassium 100 mg 08/11/25 09:00 08/12/25 10:30 Losartan Potassium 100 Mg Tablet PO 100 mg On Hold: 08/12/25 11:48 DAILY ANNETTE Administration Morphine Sulfate 1 mg 08/13/25 18:43 08/15/25 20:14 Morphine Sulfate (*Crx) 4 Mg/Ml Inj IV PUSH 1 mg Q2H PRN Administration Breakthrough Pain Rated 4-6 or NPO Morphine Sulfate 2 mg 08/13/25 18:43 08/14/25 20:52 Morphine Sulfate (*Crx) 4 Mg/Ml Inj IV PUSH 2 mg Q2H PRN Administration Breakthrough Pain Rated 7-10 or NPO Naloxone HCl 0.1 mg 08/10/25 13:04 Naloxone Hcl 0.4 Mg/Ml Vial IV PUSH Q2M PRN Opiate Reversal Ondansetron HCl 4 mg 08/10/25 13:04 Ondansetron Inj 4 Mg/2 Ml Vial IV PUSH Q4H PRN Nausea And Vomiting Oxycodone/Acetaminophen 1 tablet 08/10/25 13:04 08/12/25 10:33 Oxycodone/Acetaminophen (*Crx) 5-325 Mg Tablet PO 1 tablet On Hold: 08/12/25 11:49 Q4H PRN Administration Pain Rated 4-6 Oxycodone/Acetaminophen 1 tab 08/10/25 13:04 08/11/25 15:28 Oxycodone/Acetaminophen (*Crx) 10-325 Mg Tablet PO 1 tab On Hold: 08/12/25 11:49 Q6H PRN Administration Pain Rated 7-10 Phenol 1 spray 08/12/25 15:01 08/14/25 15:36 Phenol/Sod Pheno Kathryn Wilde (*Bkc) MUCOUS MEM 1 spray PRN PRN Administration Sore Throat Sodium Chloride 10 ml 08/15/25 14:00 08/16/25 06:15 Central Line Flush IV PUSH 10 ml Q8HR ANNETTE Administration Sodium Chloride 10 ml 08/15/25 11:41 Central Line Flush IV PUSH PRN PRN with TPN bag changes Sodium Chloride 20 ml 08/15/25 11:41 Central Line Flush IV PUSH PRN PRN after blood draws Tramadol HCl 50 mg 08/10/25 13:04 Tramadol Hcl (*Crx) 50 Mg Tablet PO On Hold: 08/12/25 11:49 Q4H PRN Pain Rated 1-3 Trazodone HCl 50 mg 08/10/25 13:04 Trazodone Hcl 50 Mg Tablet PO On Hold: 08/12/25 11:49 HS PRN Insomnia Umeclidinium/Vilanterol 1 puff 08/10/25 14:00 08/15/25 08:10 Umeclidinium/Vilanterol 62.5-25 Mcg Ellipta INHALATION 1 puff DAILY ANNETTE Administration Radiology Results: ITS Impressions Chest CTA 08/13/25 16:42 IMPRESSION: 1. Negative for pulmonary embolism. Bilateral probable pneumonia. 2. Intra-abdominal free air possibly postoperative in nature relatively unchanged compared to the previous exam Abdomen/Pelvis CT 08/15/25 08:38 IMPRESSION: 1. Ileus and/or developing small bowel obstruction. 2. Free intraperitoneal air favoring recent postoperative change. 3. Peritonitis, with scattered ascites and interloop fluid. 4. Worrisome for cystitis, unless recent catheter manipulation. 5. Significant bibasilar atelectasis and/or airspace disease, with small left effusion. Labs Labs: Laboratory Results - last 24 hr 08/15/25 08/15/25 08/15/25 05:47 08:10 11:36 WBC RBC Hgb Hct MCV MCH MCHC RDW Plt Count MPV Immature Gran % (Auto) Neut % (Auto) Lymph % (Auto) [place] % (Auto) Eos % (Auto) Baso % (Auto) Lymph # (Auto) [place] # (Auto) Eos # (Auto) Baso # (Auto) Abs Immat Gran (auto) Absolute Neuts (auto) Absolute Nucleated RBC Nucleated RBC % PT INR APTT 36.8 Sodium 139 Potassium 4.0 Chloride 113 H Carbon Dioxide 21 L Anion Gap 5 BUN 14 Creatinine 1.06 Estim Creat Clear Calc 67 Estimated GFR > 60 Glucose 122 H POC Capillary Glucose 122 H Calcium 8.2 L Phosphorus Magnesium 1.9 Transferrin 130 L Total Bilirubin 0.9 AST 18 ALT 9 Alkaline Phosphatase 59 C-Reactive Protein 33.7 H Total Protein 6.1 L Albumin 2.7 L Triglycerides 08/15/25 08/16/25 08/16/25 17:27 00:02 05:48 WBC RBC Hgb Hct MCV MCH MCHC RDW Plt Count MPV Immature Gran % (Auto) Neut % (Auto) Lymph % (Auto) [place] % (Auto) Eos % (Auto) Baso % (Auto) Lymph # (Auto) [place] # (Auto) Eos # (Auto) Baso # (Auto) Abs Immat Gran (auto) Absolute Neuts (auto) Absolute Nucleated RBC Nucleated RBC % PT INR APTT Sodium Potassium Chloride Carbon Dioxide Anion Gap BUN Creatinine Estim Creat Clear Calc Estimated GFR Glucose POC Capillary Glucose 127 H 149 H 121 H Calcium Phosphorus Magnesium Transferrin Total Bilirubin AST ALT Alkaline Phosphatase C-Reactive Protein Total Protein Albumin Triglycerides 08/16/25 06:08 WBC 10.3 H RBC 3.80 L Hgb 12.7 L Hct 38.6 L MCV 101.6 H MCH 33.4 MCHC 32.9 RDW 14.2 Plt Count 209 MPV 8.5 Immature Gran % (Auto) 1.2 H Neut % (Auto) 77.0 H Lymph % (Auto) 7.9 L [place] % (Auto) 9.6 H Eos % (Auto) 3.8 Baso % (Auto) 0.5 Lymph # (Auto) 0.81 L [place] # (Auto) 1.0 H Eos # (Auto) 0.4 H Baso # (Auto) 0.1 Abs Immat Gran (auto) 0.12 H Absolute Neuts (auto) 7.9 H Absolute Nucleated RBC 0.000 Nucleated RBC % 0.0 PT 14.9 H INR 1.2 APTT 36.2 Sodium 135 L Potassium 3.9 Chloride 107 Carbon Dioxide 22 Anion Gap 6 BUN 10 Creatinine 1.02 Estim Creat Clear Calc 69 Estimated GFR > 60 Glucose 104 POC Capillary Glucose Calcium 8.3 L Phosphorus 2.2 L Magnesium Transferrin Total Bilirubin AST ALT Alkaline Phosphatase C-Reactive Protein Total Protein Albumin Triglycerides 146 Quality VTE Prophylaxis VTE prophylaxis: pharmacologic ordered
[2025-08-16] MEDS: UMECLIDINIUM/VILANTEROL 62.5-25 MCG ELLIPTA 1 PUFF INHALATION (08:35)
[2025-08-16] MEDS: FAMOTIDINE 20 MG/2 ML VIAL IV PUSH ×2 (09:17→20:41)
--- NOTE | 2025-08-16 11:26 | P.SEDATION_ITS ---
Moderate Sedation Note-Pt Data Patient Data Diagnosis: pelvic abscess and sepsis Present Complaint: abdominal pain and distension Procedure to be performed/Plan: transgluteal pelvic abscess drain placement Allergies Allergy/AdvReac Type Severity Reaction Status Date / Time No Known Allergies Allergy Verified 08/10/25 13:44 Home Medications ?Medication ?Instructions ?Recorded ?Confirmed ?Type losartan 100 1 tablet PO DAILY 02/01/25 1 10/10/24 History mg-hydrochlorothiazide 12.5 mg tablet tramadol 50 mg tablet 50 mg PO BID PRN pain 08/01/25 History umeclidinium 62.5 mcg-vilanterol 1 inh inhalation Q24H 04/07/25 08/01/25 Rx 25 mcg/actuation powdr for bronchiectasis 3 months #18 0 ea inhalation (Anoro Ellipta) albuterol sulfate 90 mcg/actuation 2 inh inhalation Q6 H PRN shortness 04/26/25 08/01/25 Rx aerosol inhaler (Ventolin HFA) of breath 1 month #8.5 grams ciprofloxacin HCl 500 mg tablet 500 mg PO .COMPLEX #1 tablet 08/01/25 08/10/25 Rx metronidazole 500 mg tablet 500 mg PO .COMPLEX #3 tabs 08/01/25 08/10/25 Rx rivaroxaban 20 mg tablet (Xarelto) 20 mg PO DAILY 07/2308/10/25 History Current Medications: Active Medications Albuterol (Albuterol Sulfate (*Sp) Aerosol 1 Puff) 2 puff INHALATION Q6H PRN PRN Reason: Shortness Of Breath Dextrose (Dextrose 50% 25 Gm/50 Ml Syringe) 12.5 gm IV PUSH PRN PRN; Protocol PRN Reason: Hypoglycemia Enoxaparin Sodium (Enoxaparin 40 Mg/0.4 Ml Syringe) 40 mg SUB-Q DAILY ANNETTE On Hold: 08/12/25 17:18 Last Admin: 08/12/25 10:30 Dose: 40 mg Famotidine (Famotidine 20 Mg/2 Ml Vial) 20 mg IV PUSH Q12HR ANNETTE Last Admin: 08/16/25 09:17 Dose: 20 mg Glucagon (Glucagon For Inj 1 Mg Vial) 1 mg IM PRN PRN; Protocol PRN Reason: Hypoglycemia Glucose (Glucose Oral Gel 15 Gm Of Glucse In 37.5 Gm Tube) 15 gm PO PRN PRN; Protocol PRN Reason: Hypoglycemia Hydrochlorothiazide (Hydrochlorothiazide 12.5 Mg Capsule) 12.5 mg PO QAM ANNETTE On Hold: 08/12/25 11:48 Last Admin: 08/12/25 10:31 Dose: 12.5 mg Ibuprofen (Caldolor 800 Mg/200 Ml) 800 mg in 200 mls @ 400 mls/hr IVPB Q6H PRN PRN Reason: Breakthrough Pain Rated 1-3 or NPO Piperacillin Sod/Tazobactam (Sod 3.375 gm/ Sodium Chloride) 50 mls @ 100 mls/hr IVPB Q6H ANNETTE Last Admin: 08/16/25 06:11 Dose: 100 mls/hr Potassium Chloride/Dextrose/Sod Cl (Kcl 40 Meq/D5ns) 1,000 mls @ 80 mls/hr IV CONT .[id number] ANNETTE Last Admin: 08/16/25 07:31 Dose: 80 mls/hr Dextrose (Dextrose 10%) 1,000 mls @ 50 mls/hr IV CONT .Q20H PRN PRN Reason: if PN is interrupted Dextrose (Dextrose 5% 1,000 Ml) 1,000 mls @ 100 mls/hr IVPB PRN PRN; Protocol PRN Reason: Hypoglycemia Multivitamins 1.25 ml/Multivitamins 1.25 ml/ Amino Acids/Electrolytes/Dextrose 1,002.5 mls @ 40 mls/hr IV CONT .Q24H ANNETTE; Protocol Last Admin: 08/15/25 12:40 Dose: 40 mls/hr Fat Emulsion Intravenous (Lipids 20%) 250 mls @ 20.833 mls/hr IVPB Q24H ANNETTE Last Infusion: 08/16/25 00:45 Dose: Infused Insulin Aspart (Insulin Aspart (*Bkc) 100 Units/Ml) 3 - 6 units SUB-Q TIDWM ANNETTE; Protocol Last Admin: 08/16/25 09:15 Dose: Not Given Insulin Aspart (Insulin Aspart (*Bkc) 100 Units/Ml) 1 - 3 units SUB-Q HS ANNETTE; Protocol Last Admin: 08/16/25 00:20 Dose: Not Given Losartan Potassium (Losartan Potassium 100 Mg Tablet) 100 mg PO DAILY ANNETTE On Hold: 08/12/25 11:48 Last Admin: 08/12/25 10:30 Dose: 100 mg Morphine Sulfate (Morphine Sulfate (*Crx) 4 Mg/Ml Inj) 1 mg IV PUSH Q2H PRN PRN Reason: Breakthrough Pain Rated 4-6 or NPO Last Admin: 08/15/25 20:14 Dose: 1 mg Morphine Sulfate (Morphine Sulfate (*Crx) 4 Mg/Ml Inj) 2 mg IV PUSH Q2H PRN PRN Reason: Breakthrough Pain Rated 7-10 or NPO Last Admin: 08/14/25 20:52 Dose: 2 mg Naloxone HCl (Naloxone Hcl 0.4 Mg/Ml Vial) 0.1 mg IV PUSH Q2M PRN PRN Reason: Opiate Reversal Ondansetron HCl (Ondansetron Inj 4 Mg/2 Ml Vial) 4 mg IV PUSH Q4H PRN PRN Reason: Nausea And Vomiting Oxycodone/Acetaminophen (Oxycodone/Acetaminophen (*Crx) 5-325 Mg Tablet) 1 tablet PO Q4H PRN On Hold: 08/12/25 11:49 PRN Reason: Pain Rated 4-6 Last Admin: 08/12/25 10:33 Dose: 1 tablet Oxycodone/Acetaminophen (Oxycodone/Acetaminophen (*Crx) 10-325 Mg Tablet) 1 tab PO Q6H PRN On Hold: 08/12/25 11:49 PRN Reason: Pain Rated 7-10 Last Admin: 08/11/25 15:28 Dose: 1 tab Phenol (Phenol/Sod Pheno [place] Wilde (*Bkc)) 1 spray MUCOUS MEM PRN PRN PRN Reason: Sore Throat Last Admin: 08/14/25 15:36 Dose: 1 spray Sodium Chloride (Central Line Flush) 10 ml IV PUSH Q8HR ANNETTE Last Admin: 08/16/25 06:15 Dose: 10 ml Sodium Chloride (Central Line Flush) 10 ml IV PUSH PRN PRN PRN Reason: with TPN bag changes Sodium Chloride (Central Line Flush) 20 ml IV PUSH PRN PRN PRN Reason: after blood draws Tramadol HCl (Tramadol Hcl (*Crx) 50 Mg Tablet) 50 mg PO Q4H PRN On Hold: 08/12/25 11:49 PRN Reason: Pain Rated 1-3 Trazodone HCl (Trazodone Hcl 50 Mg Tablet) 50 mg PO HS PRN On Hold: 08/12/25 11:49 PRN Reason: Insomnia Umeclidinium/Vilanterol (Umeclidinium/Vilanterol 62.5-25 Mcg Ellipta) 1 puff INHALATION DAILY ANNETTE Last Admin: 08/16/25 08:35 Dose: 1 puff Sedation/Anesthesia: No previous sedation/anesthesia problems (including family history). [facility] Past Medical History Medical History Bronchiectasis History of pulmonary embolism History of pulmonary embolus (PE) History of DVT (deep vein thrombosis) Hypertension Surgical History Surgical History Hx of tonsillectomy Social History Social History Smoking status: Never smoker Alcohol intake: current Drinks per week: 21 Alcohol use details: BEER Substance use: never Substance use type: does not use Do You Feel Safe in your Home?: Yes Lack of Transportation: No Lack of Food: Never True Current Housing: I Have Housing Concerned About Future Housing: No Difficulty Paying Gas/Electric Bills: No Difficulty Paying for Meds: No Currently Unemployed: No Education: High School Diploma/GED Difficulty w/ Childcare or Family Care: No Living arrangements: with family Additional living arrangements comments: Spiritual care concerns: No Mod Sed Physical Exam Physical Exam Pre Procedural Exam: Normal: Appearance, Throat, Lungs, Heart Rate and Heart Rhythm and Variation: Abdomen (distended) Hours since solid foods: 24 Hours since liquid intake: 24 Mallampati Classification: class II Internal Medicine - PN: Obj Da Vital Signs Vital Signs: Vital Signs - 24 hr 08/15/25 12:00 08/15/25 12:00 08/15/25 16:00 Temperature 97.4 F L Pulse Rate 101 H 99 99 Respiratory Rate 18 Blood Pressure 151/89 H Pulse Oximetry 94 08/15/25 16:00 08/15/25 20:00 08/16/25 00:00 Temperature 98.9 F 99.4 F Pulse Rate 103 H 107 H Respiratory Rate 16 16 Blood Pressure 149/89 H 147/87 H 146/38 H Pulse Oximetry 93 93 08/16/25 04:00 08/16/25 08:00 08/16/25 08:35 Temperature 97.8 F 98.9 F Pulse Rate 98 101 H 98 Respiratory Rate 18 18 20 Blood Pressure 131/67 137/87 Pulse Oximetry 94 94 Intake/Output Intake/Output: Intake & Output 08/13/25 08/14/25 08/15/25 08/16/25 23:59 23:59 23:59 23:59 Intake Total 3420 3070 2200.0 1300 Output Total 6300 2800 1800 700 Balance -2880 270 400.0 600 Meds/Results Medications: Active Medications Generic Name Dose Route Start Last Admin Trade Name Freq PRN Reason Stop Dose Admin Albuterol 2 puff 08/10/25 13:04 Albuterol Sulfate (*Sp) Aerosol 1 Puff INHALATION Q6H PRN Shortness Of Breath Dextrose 12.5 gm 08/15/25 07:56 Dextrose 50% 25 Gm/50 Ml Syringe IV PUSH PRN PRN Hypoglycemia Protocol Enoxaparin Sodium 40 mg 08/11/25 09:00 08/12/25 10:30 Enoxaparin 40 Mg/0.4 Ml Syringe SUB-Q 40 mg On Hold: 08/12/25 17:18 DAILY ANNETTE Administration Famotidine 20 mg 08/10/25 21:00 08/16/25 09:17 Famotidine 20 Mg/2 Ml Vial IV PUSH 20 mg Q12HR ANNETTE Administration Glucagon 1 mg 08/15/25 07:56 Glucagon For Inj 1 Mg Vial IM PRN PRN Hypoglycemia Protocol Glucose 15 gm 08/15/25 07:56 Glucose Oral Gel 15 Gm Of Glucse In 37.5 Gm Tube PO PRN PRN Hypoglycemia Protocol Hydrochlorothiazide 12.5 mg 08/11/25 09:00 08/12/25 10:31 Hydrochlorothiazide 12.5 Mg Capsule PO 12.5 mg On Hold: 08/12/25 11:48 QAM ANNETTE Administration Ibuprofen 800 mg in 200 mls @ 400 mls/hr 08/10/25 13:04 Caldolor 800 Mg/200 Ml IVPB Q6H PRN Breakthrough Pain Rated 1-3 or NPO Piperacillin Sod/Tazobactam 50 mls @ 100 mls/hr 08/12/25 12:00 08/16/25 06:11 Sod 3.375 gm/ Sodium Chloride IVPB 100 mls/hr Q6H ANNETTE Administration Potassium Chloride/Dextrose/Sod Cl 1,000 mls @ 80 mls/hr 08/12/25 12:00 08/16/25 07:31 Kcl 40 Meq/D5ns IV CONT 80 mls/hr .[id number] ANNETTE Administration Dextrose 1,000 mls @ 50 mls/hr 08/15/25 07:56 Dextrose 10% IV CONT .Q20H PRN if PN is interrupted Dextrose 1,000 mls @ 100 mls/hr 08/15/25 07:56 Dextrose 5% 1,000 Ml IVPB PRN PRN Hypoglycemia Protocol Multivitamins 1.25 ml/ 1,002.5 mls @ 40 mls/hr 08/15/25 12:00 08/15/25 12:40 Multivitamins 1.25 ml/ Amino IV CONT 40 mls/hr Acids/Electrolytes/Dextrose .Q24H ANNETTE Administration Protocol Fat Emulsion Intravenous 250 mls @ 20.833 mls/hr 08/15/25 12:00 08/16/25 00:45 Lipids 20% IVPB Infused Q24H ANNETTE Infusion Insulin Aspart 3 - 6 units 08/15/25 08:00 08/16/25 09:15 Insulin Aspart (*Bkc) 100 Units/Ml SUB-Q Not Given TIDWM [facility] Protocol Insulin Aspart 1 - 3 units 08/15/25 21:00 08/16/25 00:20 Insulin Aspart (*Bkc) 100 Units/Ml SUB-Q Not Given HS ANNETTE Protocol Losartan Potassium 100 mg 08/11/25 09:00 08/12/25 10:30 Losartan Potassium 100 Mg Tablet PO 100 mg On Hold: 08/12/25 11:48 DAILY ANNETTE Administration Morphine Sulfate 1 mg 08/13/25 18:43 08/15/25 20:14 Morphine Sulfate (*Crx) 4 Mg/Ml Inj IV PUSH 1 mg Q2H PRN Administration Breakthrough Pain Rated 4-6 or NPO Morphine Sulfate 2 mg 08/13/25 18:43 08/14/25 20:52 Morphine Sulfate (*Crx) 4 Mg/Ml Inj IV PUSH 2 mg Q2H PRN Administration Breakthrough Pain Rated 7-10 or NPO Naloxone HCl 0.1 mg 08/10/25 13:04 Naloxone Hcl 0.4 Mg/Ml Vial IV PUSH Q2M PRN Opiate Reversal Ondansetron HCl 4 mg 08/10/25 13:04 Ondansetron Inj 4 Mg/2 Ml Vial IV PUSH Q4H PRN Nausea And Vomiting Oxycodone/Acetaminophen 1 tablet 08/10/25 13:04 08/12/25 10:33 Oxycodone/Acetaminophen (*Crx) 5-325 Mg Tablet PO 1 tablet On Hold: 08/12/25 11:49 Q4H PRN Administration Pain Rated 4-6 Oxycodone/Acetaminophen 1 tab 08/10/25 13:04 08/11/25 15:28 Oxycodone/Acetaminophen (*Crx) 10-325 Mg Tablet PO 1 tab On Hold: 08/12/25 11:49 Q6H PRN Administration Pain Rated 7-10 Phenol 1 spray 08/12/25 15:01 08/14/25 15:36 Phenol/Sod Pheno [place] (*Bkc) MUCOUS MEM 1 spray PRN PRN Administration Sore Throat Sodium Chloride 10 ml 08/15/25 14:00 08/16/25 06:15 Central Line Flush IV PUSH 10 ml Q8HR ANNETTE Administration Sodium Chloride 10 ml 08/15/25 11:41 Central Line Flush IV PUSH PRN PRN with TPN bag changes Sodium Chloride 20 ml 08/15/25 11:41 Central Line Flush IV PUSH PRN PRN after blood draws Tramadol HCl 50 mg 08/10/25 13:04 Tramadol Hcl (*Crx) 50 Mg Tablet PO On Hold: 08/12/25 11:49 Q4H PRN Pain Rated 1-3 Trazodone HCl 50 mg 08/10/25 13:04 Trazodone Hcl 50 Mg Tablet PO On Hold: 08/12/25 11:49 HS PRN Insomnia Umeclidinium/Vilanterol 1 puff 08/10/25 14:00 08/16/25 08:35 Umeclidinium/Vilanterol 62.5-25 Mcg Ellipta INHALATION 1 puff DAILY ANNETTE Administration Radiology Results: ITS Impressions Chest CTA 08/13/25 16:42 IMPRESSION: 1. Negative for pulmonary embolism. Bilateral probable pneumonia. 2. Intra-abdominal free air possibly postoperative in nature relatively unchanged compared to the previous exam Abdomen/Pelvis CT 08/15/25 08:38 IMPRESSION: 1. Ileus and/or developing small bowel obstruction. 2. Free intraperitoneal air favoring recent postoperative change. 3. Peritonitis, with scattered ascites and interloop fluid. 4. Worrisome for cystitis, unless recent catheter manipulation. 5. Significant bibasilar atelectasis and/or airspace disease, with small left effusion. Abdomen X-Ray 08/16/25 08:17 Impression: 1. Ileus versus small bowel obstruction. Findings appear relatively unchanged. Labs 08/16/25 06:08 08/16/25 06:08 Labs: Laboratory Results - last 24 hr 08/15/25 08/15/25 08/16/25 11:36 17:27 00:02 WBC RBC Hgb Hct MCV MCH MCHC RDW Plt Count MPV Immature Gran % (Auto) Neut % (Auto) Lymph % (Auto) [facility] % (Auto) Eos % (Auto) Baso % (Auto) Lymph # (Auto) [facility] [facility] # (Auto) Eos # (Auto) Baso # (Auto) Abs Immat Gran (auto) Absolute Neuts (auto) Absolute Nucleated RBC Nucleated RBC % PT INR APTT Sodium Potassium Chloride Carbon Dioxide Anion Gap BUN Creatinine Estim Creat Clear Calc Estimated GFR Glucose POC Capillary Glucose 122 H 127 H 149 H Calcium Phosphorus Triglycerides 08/16/25 08/16/25 05:48 06:08 WBC 10.3 H RBC 3.80 L Hgb 12.7 L Hct 38.6 L MCV 101.6 H MCH 33.4 MCHC 32.9 RDW 14.2 Plt Count 209 MPV 8.5 Immature Gran % (Auto) 1.2 H Neut % (Auto) 77.0 H Lymph % (Auto) 7.[address] [place] [facility] % (Auto) 9.6 H Eos % (Auto) 3.8 Baso % (Auto) 0.5 Lymph # (Auto) 0.[address] [place] [facility] # (Auto) 1.0 H Eos # (Auto) 0.4 H Baso # (Auto) 0.1 Abs Immat Gran (auto) 0.12 H Absolute Neuts (auto) 7.9 H Absolute Nucleated RBC 0.000 Nucleated RBC % 0.0 PT 14.9 H INR 1.2 APTT 36.2 Sodium 135 L Potassium 3.9 Chloride 107 Carbon Dioxide 22 Anion Gap 6 BUN 10 Creatinine 1.02 Estim Creat Clear Calc 69 Estimated GFR > 60 Glucose 104 POC Capillary Glucose 121 H Calcium 8.3 L Phosphorus 2.2 L Triglycerides 146 ASA Classification/Sedation ASA Classification/Sedation ASA Class: II Emergent: No Risks: Risks, benefits and alternatives explained and patient/family accepted plan for sedation. Patient re-evaluated immediately prior to sedation.
[2025-08-16] MEDS: fentaNYL CITRATE INJ (*CRX) 100 MCG/2 ML VIAL 50 MCG IV PUSH (11:30)
[2025-08-16] MEDS: MIDAZOLAM HCL (*CRX) 2 MG/2 ML VIAL 1 MG IV PUSH (11:54)
--- NOTE | 2025-08-16 12:08 | PCNFU ---
Nutrition Follow-Up Complete: Inadequate energy intake related to NPO status and altered GI function as evidenced by current diet orders Goal:Meet estimated needs pt progressing towards goal via TPN Pt current nutrition is NPO, TPN: Clnimix E 02/03 running at 40ml/hr providing 1182kcals, 48g protein. Nutrition recommendation: Increase TPN to goal rate of 60ml/hr, D/C IV fluids Last recorded weight is 92.2 kg. Bowel Motility: +BM 08/15 Labs Reviewed: Hgb:12.7, HCt:38.6, NA:135, PHOS:2.2 Meds Noted: Novolog, KCL, lovenox, HCTZ Skin: WNL Additional Notes: Pt started on TPN, tolerating. Abdomen less distended today. Noted ileus. Recommend to increase TPN to goal rate of 60ml/hr to provide 1522kcals, 72g protein, 1690ml free water and better meet estimated need, D/C IV fluids and K+. Spoke with hospitalist and nursing, nursing to contact surgery for orders. Monitor TPN, wt, labs. Follow up in every Friday and Friday
--- NOTE | 2025-08-16 12:44 | PM.PNGS ---
Progress Note: A&P Assessment and Plan (1) Intra-abdominal abscess: Code(s): K65.1 - Peritoneal abscess <Sherly BajwaVERNA fernandezN - Last Filed: 08/16/25 13:48> Status: Acute <Sherly Toledo LOCOMOTIVE ENGINEER DIESEL - Last Filed: 08/16/25 13:48> Assessment and Plan: CT scan yesterday showed pelvic fluid collections that were unchanged. He had CT-guided drainage of the pelvic fluid collection in Radiology today. Cultures were sent. Continue IV Zosyn. <Sherly Toledo LOCOMOTIVE ENGINEER DIESEL - Last Filed: 08/16/25 13:48> (2) Obstruction of small intestine after surgical procedure: Code(s): K91.30 - Postprocedural intestinal obstruction, unspecified as to partial versus complete <Sherly Bajwarebecca LOCOMOTIVE ENGINEER DIESEL - Last Filed: 08/16/25 13:48> Status: Acute <Sherly Bajwarebecca LOCOMOTIVE ENGINEER DIESEL - Last Filed: 08/16/25 13:48> Assessment and Plan: More likely an ileus and seems to be improving. Continue NG tube decompression, TPN, and bowel rest. Will increase TPN to 60mL/hr per dietitian's recommendations. Encouraged walking the halls/ambulating a few times per day. Minimize narcotic use when possible. Continue to monitor electrolytes, which were stable today, and replace as needed. <Sherly Bajwarebecca LOCOMOTIVE ENGINEER DIESEL - Last Filed: 08/16/25 13:48> (3) Protein-calorie malnutrition, severe: Code(s): E43 - Unspecified severe protein-calorie malnutrition <Sherly Bajwarebecca LOCOMOTIVE ENGINEER DIESEL - Last Filed: 08/16/25 13:48> Status: Acute <Sherly Bajwarebecca LOCOMOTIVE ENGINEER DIESEL - Last Filed: 08/16/25 13:48> Assessment and Plan: Continue TPN as mentioned above. <Sherly Bajwarebecca LOCOMOTIVE ENGINEER DIESEL - Last Filed: 08/16/25 13:48> (4) Status post colon resection: Code(s): Z90.49 - Acquired absence of other specified parts of digestive tract <Sherly Bajwarebecca LOCOMOTIVE ENGINEER DIESEL - Last Filed: 08/16/25 13:48> Status: Acute <Sherly B. VERNA ToledoN - Last Filed: 08/16/25 13:48> Assessment and Plan: KATHARINA sigmoidectomy on 08/10/[address] abad for diverticulitis <Sherly B. VERNA ToledoN - Last Filed: 08/16/25 13:48> (5) Sigmoid diverticulitis: Code(s): K57.32 - Diverticulitis of large intestine without perforation or abscess without bleeding <Sherly B. [place], LOCOMOTIVE ENGINEER DIESEL - Last Filed: 08/16/25 13:48> Status: Chronic <Sherly B. [place] LOCOMOTIVE ENGINEER DIESEL - Last Filed: 08/16/25 13:48> Assessment and Plan: Pathology showed diverticulosis with focal chronic diverticulitis, no malignancy <Sherly B. VERNA ToledoN - Last Filed: 08/16/25 13:48> (6) History of pulmonary embolism: Code(s): Z86.711 - Personal history of pulmonary embolism <Sherly B. VERNA ToledoN - Last Filed: 08/16/25 13:48> Status: Chronic <Sherly B. 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 VERNA ToledoN - Last Filed: 08/16/25 13:48> Status: Chronic <Sherly B. VERNA ToledoN - Last Filed: 08/16/25 13:48> Assessment and Plan: Prophylactic Lovenox resumed <Sherly B. Paris LOCOMOTIVE ENGINEER DIESEL - Last Filed: 08/16/25 13:48> (8) Bronchiectasis: Qualifiers: Bronchiectasis type: uncomplicated Qualified Code(s): J47.9 - Bronchiectasis, uncomplicated <Sherly B. Tonychristianne LOCOMOTIVE ENGINEER DIESEL - Last Filed: 08/16/25 13:48> Code(s): J47.9 - Bronchiectasis, uncomplicated <Sherly B. Tonychristianne LOCOMOTIVE ENGINEER DIESEL - Last Filed: 08/16/25 13:48> Status: Chronic <Sherly B. [place], LOCOMOTIVE ENGINEER DIESEL - Last Filed: 08/16/25 13:48> Assessment and Plan: Not having any acute issues at this time <Sherly Bajwarebecca LOCOMOTIVE ENGINEER DIESEL - Last Filed: 08/16/25 13:48> Assessment and Plan: I have discussed the patient's case, recommendations, and treatment plan with Dr. Abad. <Sherly TeagueCatrachito Aydeerose marychristianne LOCOMOTIVE ENGINEER DIESEL - Last Filed: 08/16/25 13:48> Subjective Subjective Date/Time Seen: 08/16/25 12:44 <Sherly B. Aydeerebecca LOCOMOTIVE ENGINEER DIESEL - Last Filed: 08/16/25 13:48> Patient reports: no new complaints and afebrile <Sherly Marx Aydeerebecca LOCOMOTIVE ENGINEER DIESEL - Last Filed: 08/16/25 13:48> Interval history: Patient and nurse reports patient having a maroon colored stool yesterday afternoon. He has passed flatus today and had another BM this morning that was brown with no blood noted. He still has some lower abdominal pain, but reports this is improving. WBC count is 10.3 today. NG had 1,000 mL out in the past 24 hours. He reports he has been walking the halls and tolerating activity well. <Sherly Marx AydeeALONDRA fernandez - Last Filed: 08/16/25 13:48> Exam Const: General: comfortable and no acute distress <Sherly Marx AydeeVERNA fernandezN - Last Filed: 08/16/25 13:48> Orientation/consciousness: patient oriented x3 <Sherly Marx AydeeVERNA fernandezN - Last Filed: 08/16/25 13:48> GI: Inspection: distended and incision (dry and glue intact, localized ecchymosis, no erythema or drainage) <Sherly Marx AydeeVERNA fernandezN - Last Filed: 08/16/25 13:48> GI Palp: Yes Soft to palpation, Yes Tenderness to palpation present (GI) (mild diffuse tenderness), No Guarding due to palpation present (GI), No Hernia present and No Rebound tenderness present <Sherly Marx AydeeVERNA fernandezN - Last Filed: 08/16/25 13:48> Auscultation: Hypoactive bowel sounds present <Sherly Marx AydeeVERNA fernandezN - Last Filed: 08/16/25 13:48> Other: clear bilious output in NG tube <Sherly Toledo APRN - Last Filed: 08/16/25 13:48> Objective Data Vital Signs Vital Signs: Vital Signs - 24 hr 08/15/25 16:00 08/15/25 16:00 08/15/25 20:00 Temperature 98.9 F Pulse Rate 99 103 H Respiratory Rate 16 Blood Pressure 149/89 H 147/87 H Pulse Oximetry 93 08/16/25 00:00 08/16/25 04:00 08/16/25 08:00 Temperature 99.4 F 97.8 F 98.9 F Pulse Rate 107 H 98 101 H Respiratory Rate 16 18 18 Blood Pressure 146/38 H 131/67 137/87 Pulse Oximetry 93 94 94 08/16/25 08:35 Temperature Pulse Rate 98 Respiratory Rate 20 Blood Pressure Pulse Oximetry <Sherly Toledo APRN - Last Filed: 08/16/25 13:48> Intake/Output Intake/Output: Intake & Output 08/13/25 08/14/25 08/15/25 08/16/25 23:59 23:59 23:59 23:59 Intake Total 3420 3070 2200.0 1300 Output Total 6300 2800 1800 700 Balance -2880 270 400.0 600 <Sherly Toledo APRN - Last Filed: 08/16/25 13:48> Meds/Results Medications: Active Medications Generic Name Dose Route Start Last Admin Trade Name Freq PRN Reason Stop Dose Admin Albuterol 2 puff 08/10/25 13:04 Albuterol Sulfate (*Sp) Aerosol 1 Puff INHALATION Q6H PRN Shortness Of Breath Dextrose 12.5 gm 08/15/25 07:56 Dextrose 50% 25 Gm/50 Ml Syringe IV PUSH PRN PRN Hypoglycemia Protocol Enoxaparin Sodium 40 mg 08/11/25 09:00 08/12/25 10:30 Enoxaparin 40 Mg/0.4 Ml Syringe SUB-Q 40 mg On Hold: 08/12/25 17:18 DAILY ANNETTE Administration Famotidine 20 mg 08/10/25 21:00 08/16/25 09:17 Famotidine 20 Mg/2 Ml Vial IV PUSH 20 mg Q12HR ANNETTE Administration Glucagon 1 mg 08/15/25 07:56 Glucagon For Inj 1 Mg Vial IM PRN PRN Hypoglycemia Protocol Glucose 15 gm 08/15/25 07:56 Glucose Oral Gel 15 Gm Of Glucse In 37.5 Gm Tube PO PRN PRN Hypoglycemia Protocol Hydrochlorothiazide 12.5 mg 08/11/25 09:00 08/12/25 10:31 Hydrochlorothiazide 12.5 Mg Capsule PO 12.5 mg On Hold: 08/12/25 11:48 QAM ANNETTE Administration Ibuprofen 800 mg in 200 mls @ 400 mls/hr 08/10/25 13:04 Caldolor 800 Mg/200 Ml IVPB Q6H PRN Breakthrough Pain Rated 1-3 or NPO Piperacillin Sod/Tazobactam 50 mls @ 100 mls/hr 08/12/25 12:00 08/16/25 06:11 Sod 3.375 gm/ Sodium Chloride IVPB 100 mls/hr Q6H ANNETTE Administration Potassium Chloride/Dextrose/Sod Cl 1,000 mls @ 80 mls/hr 08/12/25 12:00 08/16/25 07:31 Kcl 40 Meq/D5ns IV CONT 80 mls/hr .[id number] ANNETTE Administration Dextrose 1,000 mls @ 50 mls/hr 08/15/25 07:56 Dextrose 10% IV CONT .Q20H PRN if PN is interrupted Dextrose 1,000 mls @ 100 mls/hr 08/15/25 07:56 Dextrose 5% 1,000 Ml IVPB PRN PRN Hypoglycemia Protocol Multivitamins 1.25 ml/ 1,002.5 mls @ 40 mls/hr 08/15/25 12:00 08/15/25 12:40 Multivitamins 1.25 ml/ Amino IV CONT 40 mls/hr Acids/Electrolytes/Dextrose .Q24H ANNETTE Administration Protocol Fat Emulsion Intravenous 250 mls @ 20.833 mls/hr 08/15/25 12:00 08/16/25 00:45 Lipids 20% IVPB Infused Q24H ANNETTE Infusion Insulin Aspart 3 - 6 units 08/15/25 08:00 08/16/25 09:15 Insulin Aspart (*Bkc) 100 Units/Ml SUB-Q Not Given TIDWM ANNETTE Protocol Insulin Aspart 1 - 3 units 08/15/25 21:00 08/16/25 00:20 Insulin Aspart (*Bkc) 100 Units/Ml SUB-Q Not Given HS ANNETTE Protocol Losartan Potassium 100 mg 08/11/25 09:00 08/12/25 10:30 Losartan Potassium 100 Mg Tablet PO 100 mg On Hold: 08/12/25 11:48 DAILY ANNETTE Administration Morphine Sulfate 1 mg 08/13/25 18:43 08/15/25 20:14 Morphine Sulfate (*Crx) 4 Mg/Ml Inj IV PUSH 1 mg Q2H PRN Administration Breakthrough Pain Rated 4-6 or NPO Morphine Sulfate 2 mg 08/13/25 18:43 08/14/25 20:52 Morphine Sulfate (*Crx) 4 Mg/Ml Inj IV PUSH 2 mg Q2H PRN Administration Breakthrough Pain Rated 7-10 or NPO Naloxone HCl 0.1 mg 08/10/25 13:04 Naloxone Hcl 0.4 Mg/Ml Vial IV PUSH Q2M PRN Opiate Reversal Ondansetron HCl 4 mg 08/10/25 13:04 Ondansetron Inj 4 Mg/2 Ml Vial IV PUSH Q4H PRN Nausea And Vomiting Oxycodone/Acetaminophen 1 tablet 08/10/25 13:04 08/12/25 10:33 Oxycodone/Acetaminophen (*Crx) 5-325 Mg Tablet PO 1 tablet On Hold: 08/12/25 11:49 Q4H PRN Administration Pain Rated 4-6 Oxycodone/Acetaminophen 1 tab 08/10/25 13:04 08/11/25 15:28 Oxycodone/Acetaminophen (*Crx) 10-325 Mg Tablet PO 1 tab On Hold: 08/12/25 11:49 Q6H PRN Administration Pain Rated 7-10 Phenol 1 spray 08/12/25 15:01 08/14/25 15:36 Phenol/Sod Pheno [place] (*Bkc) MUCOUS MEM 1 spray PRN PRN Administration Sore Throat Sodium Chloride 10 ml 08/15/25 14:00 08/16/25 06:15 Central Line Flush IV PUSH 10 ml Q8HR ANNETTE Administration Sodium Chloride 10 ml 08/15/25 11:41 Central Line Flush IV PUSH PRN PRN with TPN bag changes Sodium Chloride 20 ml 08/15/25 11:41 Central Line Flush IV PUSH PRN PRN after blood draws Tramadol HCl 50 mg 08/10/25 13:04 Tramadol Hcl (*Crx) 50 Mg Tablet PO On Hold: 08/12/25 11:49 Q4H PRN Pain Rated 1-3 Trazodone HCl 50 mg 08/10/25 13:04 Trazodone Hcl 50 Mg Tablet PO On Hold: 08/12/25 11:49 HS PRN Insomnia Umeclidinium/Vilanterol 1 puff 08/10/25 14:00 08/16/25 08:35 Umeclidinium/Vilanterol 62.5-25 Mcg Ellipta INHALATION 1 puff DAILY ANNETTE Administration <Sherly Toledo APRN - Last Filed: 08/16/25 13:48> Radiology Results: ITS Impressions Chest CTA 08/13/25 16:42 IMPRESSION: 1. Negative for pulmonary embolism. Bilateral probable pneumonia. 2. Intra-abdominal free air possibly postoperative in nature relatively unchanged compared to the previous exam Abdomen/Pelvis CT 08/15/25 08:38 IMPRESSION: 1. Ileus and/or developing small bowel obstruction. 2. Free intraperitoneal air favoring recent postoperative change. 3. Peritonitis, with scattered ascites and interloop fluid. 4. Worrisome for cystitis, unless recent catheter manipulation. 5. Significant bibasilar atelectasis and/or airspace disease, with small left effusion. Abdomen X-Ray 08/16/25 08:17 Impression: 1. Ileus versus small bowel obstruction. Findings appear relatively unchanged. <Sherly Toledo APRN - Last Filed: 08/16/25 13:48> Labs Labs: Laboratory Results - last 24 hr 08/15/25 08/16/25 08/16/25 17:27 00:02 05:48 WBC RBC Hgb Hct MCV MCH MCHC RDW Plt Count MPV Immature Gran % (Auto) Neut % (Auto) Lymph % (Auto) [place] % (Auto) Eos % (Auto) Baso % (Auto) Lymph # (Auto) [place] # (Auto) Eos # (Auto) Baso # (Auto) Abs Immat Gran (auto) Absolute Neuts (auto) Absolute Nucleated RBC Nucleated RBC % PT INR APTT Sodium Potassium Chloride Carbon Dioxide Anion Gap BUN Creatinine Estim Creat Clear Calc Estimated GFR Glucose POC Capillary Glucose 127 H 149 H 121 H Calcium Phosphorus Triglycerides 08/16/25 06:08 WBC 10.3 H RBC 3.80 L Hgb 12.7 L Hct 38.6 L MCV 101.6 H MCH 33.4 MCHC 32.9 RDW 14.2 Plt Count 209 MPV 8.5 Immature Gran % (Auto) 1.2 H Neut % (Auto) 77.0 H Lymph % (Auto) 7.9 L [place] % (Auto) 9.6 H Eos % (Auto) 3.8 Baso % (Auto) 0.5 Lymph # (Auto) 0.81 L [place] # (Auto) 1.0 H Eos # (Auto) 0.4 H Baso # (Auto) 0.1 Abs Immat Gran (auto) 0.12 H Absolute Neuts (auto) 7.9 H Absolute Nucleated RBC 0.000 Nucleated RBC % 0.0 PT 14.9 H INR 1.2 APTT 36.2 Sodium 135 L Potassium 3.9 Chloride 107 Carbon Dioxide 22 Anion Gap 6 BUN 10 Creatinine 1.02 Estim Creat Clear Calc 69 Estimated GFR > 60 Glucose 104 POC Capillary Glucose Calcium 8.3 L Phosphorus 2.2 L Triglycerides 146 <Sherly Toledo APRN - Last Filed: 08/16/25 13:48> Quality I agree with the progress note above per LATASHA Muir. I have spoken with her about the patient. I also saw the patient today and examined him. He has had his percutanous drain placed. There is still another probably 100-150cc of reddish perea, opaque fluid in the drainage bag. No odor. Looks like old blood but could be infected hematoma. Cultures, gram stain are pending. Continue IV Zosyn. Increase Clinimix to 60cc/hr as recommended. Still has no bowel sounds but is less distended. Continue NPO. Continue closely monitor. He does seem a little better. <José Luis Abad MD - Last Filed: 08/16/25 16:59>
[2025-08-16] MEDS: AMINO ACIDS 5%/D15W/E-LYTES/CA 1,000 ML with MULTIVITAMINS-12 INJ VIAL 1 1.25 ML, MULTI... 50 ML IV CONT (13:02)
[2025-08-16] MEDS: FAT EMULSIONS IV 20% 250 ML 20 ML IVPB (13:04)
[2025-08-16] MEDS: MORPHINE SULFATE (*CRX) 4 MG/ML INJ 1 MG IV PUSH ×2 (18:34→21:55)
[2025-08-17] VITALS (21 sets, daily range): BP systolic 97–161; BP diastolic 73–100; PULSE 91–136; RESP 14–27; TEMP 36.6–37.1; O2SAT 93–98
[2025-08-17] MEDS: MORPHINE SULFATE (*CRX) 4 MG/ML INJ 2 MG IV PUSH ×2 (00:03→14:45)
[2025-08-17] MEDS: PIPERACILLIN/TAZOBACTAM SOD 3.375 GM in SODIUM CHLORIDE 0.9% IV 50 ML 100 ML IVPB ×4 (05:39→23:24)
[2025-08-17] MEDS: CENTRAL LINE FLUSH 10 ML IV PUSH ×3 (05:40→20:37)
[2025-08-17] MEDS: KCL 40 MEQ/D5/0.9% SOD CHL 1,000 ML 80 ML IV CONT (05:40)
[2025-08-17] MEDS: AMINO ACIDS 5%/D15W/E-LYTES/CA 1,000 ML with MULTIVITAMINS-12 INJ VIAL 1 1.25 ML, MULTI... 50 ML IV CONT (05:41)
[2025-08-17 06:13] LABS: Hematocrit 35.8 % (42.0-52.0); Hemoglobin 11.7 g/dL (14.0-18.0); Immature Granulocyte Percent A 2.3 % (0-0.5); Lymphocytes Absolute Auto 1.01 K/mm3 (0.9-3.2); Mean Corpuscular HGB Conc 32.7 g/dl (32-36); Mean Corpuscular Hemoglobin 33.1 pg (26-34); Mean Corpuscular Volume 101.1 fl (80-100); Nucleated Red Blood Cells Absolute Auto 0.000 K/mm3 (0.0-0.012); Nucleated Red Blood Cells Perc 0.0 % (0.0-0.2); Platelet Count Result 228 k/mm3 (150-375); Red Blood Count 3.54 M/mm3 (4.6-6.20); White Blood Count 9.9 K/mm3 (4.5-10.0)
[2025-08-17] MEDS: MORPHINE SULFATE (*CRX) 4 MG/ML INJ 1 MG IV PUSH ×2 (06:14→11:48)
[2025-08-17 06:40] LABS: Anion Gap 17 mmol/L (4-12); Blood Urea Nitrogen 8 mg/dL (9-20); CRP 8.3 mg/dL (<1.0); Calcium 7.2 mg/dL (8.4-10.2); Carbon Dioxide 20 mmol/L (22-30); Chloride 107 mmol/L (98-107); Estimated CRCL calculation 88 ml/min; Estimated Glomerular Filt Rate > 60; Glucose 106 mg/dL (65-110); Potassium 3.2 mmol/L (3.4-5.0); Sodium 144 mmol/L (137-145)
[2025-08-17] MEDS: UMECLIDINIUM/VILANTEROL 62.5-25 MCG ELLIPTA 1 PUFF INHALATION (07:26)
--- NOTE | 2025-08-17 09:01 | P.PNIM_ITS ---
Progress Note: A&P Assessment and Plan (1) Obstruction of small intestine after surgical procedure: Code(s): K91.30 - Postprocedural intestinal obstruction, unspecified as to partial versus complete Status: Acute Assessment and Plan: -admit CT with intra-abdominal free air (likely postoperative), complex fluid within the pelvis with small amount of hemoperitoneum. Rim enhancing fluid collections are noted and suspicious for early abscess. Multiple dilated loops of small bowel with decompressed small bowel loops in the pelvis. - continue IV Zosyn - continue NGT to LIWS -continue encouraging patient to ambulate in the halls -continue maintenance IVF - daily KUB- 08/17 -persistently dilated small loops without significant change -General surgery remains primary - continue to follow - s/p CT guided drainage of pelvic fluid collection/hematoma with drain placement 08/16/26, cultures pending - PICC line for TPN (2) Sepsis: Code(s): A41.9 - Sepsis, unspecified organism Status: Acute Assessment and Plan: -Meets SIRS criteria: Leukocytosis, Tachycardia, tachypnea -lactic acid: 1.9 -Procalcitonin: 5.5 -suspected source: Intra-abdominal -blood cultures drawn on 08/13 -UA: Not indicative of infection -Urine culture not obtained -Chest CTA: Negative for pulmonary embolism. Bilateral probable pneumonia. Intraabdominal free air unchanged from previous exam -Continue Zosyn (3) Status post colon resection: Code(s): Z90.49 - Acquired absence of other specified parts of digestive tract Status: Acute Assessment and Plan: -Patient underwent hand assisted lap sigmoidectomy with anastomosis on 08/10 due to frequent admissions for diverticulitis. -pain control per surgery with ibuprofen, morphine, oxycodone -Entereg per surgery -continue to encourage incentive spirometry use. CT demonstrates atelectasis at the lung bases with small infiltrates -teach patient pillow splinting (4) Bloody stool: Code(s): K92.1 - Melena Status: Acute Assessment and Plan: -Had 1 episode of bright red blood per rectum post first ambulation in the [facility] on 08/12. Patient denies shortness of breath or dizziness. -continue to monitor -No episodes of bloody stool last night/this am -:25: Hgb 11.7 (5) History of pulmonary embolism: Code(s): Z86.711 - Personal history of pulmonary embolism Status: Chronic Assessment and Plan: -Patient with history of PE and DVT. On chronic Xarelto at home -continue to hold Xarelto -continue Lovenox (6) Hypertension: Qualifiers: Hypertension type: primary hypertension Qualified Code(s): I10 - Essential (primary) hypertension Code(s): I10 - Essential (primary) hypertension Status: Chronic Assessment and Plan: -BP meds on hold (7) Urethral stricture: Qualifiers: Urethral stricture sex-location: male urethra-unspecified Urethral stricture type: unspecified stricture type Qualified Code(s): N35.919 - Unspecified urethral stricture, male, unspecified site Code(s): N35.919 - Unspecified urethral stricture, male, unspecified site Status: Chronic Assessment and Plan: -Bilateral ureteral stent placement and urethral meatal dilatation on 08/10. -Anand removed on 08/12 -continue to monitor urine output -Urology followed (8) Bronchiectasis: Qualifiers: Bronchiectasis type: uncomplicated Qualified Code(s): J47.9 - Bronchiectasis, uncomplicated Code(s): J47.9 - Bronchiectasis, uncomplicated Status: Chronic Assessment and Plan: -Continue Anoro Ellipta daily, albuterol p.r.n. Plan Diet: Ice chips DVT prophylaxis: Lovenox Code status: Full Subjective Date/time seen: 08/17/25 09:01 Interval history: Patient seen and examined up in chair. Complaining of abdominal distension and diffuse pain. Denied nausea. Case discussed with General surgery. Review of Systems Review of Systems: All systems reviewed & are unremarkable except as noted in HPI and below Exam Narrative: General: NAD Eyes: EOMI ENT: neck supple Cardiovascular: Regular rate and rhythm Respiratory: Clear to auscultation, respirations even and unlabored on RA Gastrointestinal: Moderate distension, bowel sounds absent, mild diffuse tenderness, surgical incisions well approximated, surgical drain with dark green output Genitourinary: no suprapubic tenderness Musculoskeletal: No edema Skin: warm, dry, Neuro: Alert. Psych: Mood appropriate Objective Data Vital Signs Vital Signs: Vital Signs - 24 hr 08/16/25 11:30 08/16/25 11:35 08/16/25 11:40 Temperature Pulse Rate 95 97 101 H Respiratory Rate 25 H 28 H 25 H Blood Pressure 186/74 H 185/72 H 192/71 H Pulse Oximetry 99 98 98 Oxygen Delivery Simple Face Mask Simple Face Mask Simple Face Mask Oxygen Flow Rate 5 5 5 08/16/25 11:45 08/16/25 11:50 08/16/25 11:55 Temperature Pulse Rate 103 H 97 105 H Respiratory Rate 24 H 22 H 18 Blood Pressure 186/72 H 190/72 H 190/72 H Pulse Oximetry 98 99 98 Oxygen Delivery Simple Face Mask Simple Face Mask Simple Face Mask Oxygen Flow Rate 5 5 5 08/16/25 12:00 08/16/25 12:05 08/16/25 12:10 Temperature Pulse Rate 104 H 104 H 103 H Respiratory Rate 16 20 25 H Blood Pressure 188/72 H 190/72 H 138/110 H Pulse Oximetry 99 100 100 Oxygen Delivery Simple Face Mask Simple Face Mask Simple Face Mask Oxygen Flow Rate 5 5 5 08/16/25 12:15 08/16/25 12:25 08/16/25 16:00 Temperature 99.4 F Pulse Rate 107 H 105 H 96 Respiratory Rate 20 21 H 22 H Blood Pressure 196/75 H 198/68 H 154/87 H Pulse Oximetry 96 96 95 Oxygen Delivery Room Air Room Air Oxygen Flow Rate 08/16/25 20:00 08/16/25 20:45 08/17/25 00:00 Temperature 97.9 F 97.8 F Pulse Rate 97 97 Respiratory Rate 20 20 Blood Pressure 151/86 H 143/84 H Pulse Oximetry 95 94 Oxygen Delivery Room Air Oxygen Flow Rate 08/17/25 04:00 08/17/25 07:28 Temperature 98.1 F Pulse Rate 97 91 Respiratory Rate 20 18 Blood Pressure 147/92 H Pulse Oximetry 94 Oxygen Delivery Oxygen Flow Rate Intake/Output Intake/Output: Intake & Output 08/14/25 08/15/25 08/16/25 08/17/25 23:59 23:59 23:59 23:59 Intake Total 3070 2200.0 3474.7 1551.2 Output Total 2800 1800 2125 1300 Balance 270 400.0 1349.7 251.2 Meds/Results Medications: Active Medications Generic Name Dose Route Start Last Admin Trade Name Freq PRN Reason Stop Dose Admin Albuterol 2 puff 08/10/25 13:04 Albuterol Sulfate (*Sp) Aerosol 1 Puff INHALATION Q6H PRN Shortness Of Breath Dextrose 12.5 gm 08/15/25 07:56 Dextrose 50% 25 Gm/50 Ml Syringe IV PUSH PRN PRN Hypoglycemia Protocol Enoxaparin Sodium 40 mg 08/11/25 09:00 08/12/25 10:30 Enoxaparin 40 Mg/0.4 Ml Syringe SUB-Q 40 mg DAILY ANNETTE Administration Famotidine 20 mg 08/10/25 21:00 08/16/25 20:41 Famotidine 20 Mg/2 Ml Vial IV PUSH 20 mg Q12HR ANNETTE Administration Glucagon 1 mg 08/15/25 07:56 Glucagon For Inj 1 Mg Vial IM PRN PRN Hypoglycemia Protocol Glucose 15 gm 08/15/25 07:56 Glucose Oral Gel 15 Gm Of Glucse In 37.5 Gm Tube PO PRN PRN Hypoglycemia Protocol Hydrochlorothiazide 12.5 mg 08/11/25 09:00 08/12/25 10:31 Hydrochlorothiazide 12.5 Mg Capsule PO 12.5 mg On Hold: 08/12/25 11:48 QAM ANNETTE Administration Ibuprofen 800 mg in 200 mls @ 400 mls/hr 08/10/25 13:04 Caldolor 800 Mg/200 Ml IVPB Q6H PRN Breakthrough Pain Rated 1-3 or NPO Piperacillin Sod/Tazobactam 50 mls @ 100 mls/hr 08/12/25 12:00 08/17/25 05:39 Sod 3.375 gm/ Sodium Chloride IVPB 100 mls/hr Q6H ANNETTE Administration Potassium Chloride/Dextrose/Sod Cl 1,000 mls @ 70 mls/hr 08/12/25 12:00 08/17/25 05:40 Kcl 40 Meq/D5ns IV CONT 80 mls/hr .[id number] ANNETTE Administration Dextrose 1,000 mls @ 50 mls/hr 08/15/25 07:56 Dextrose 10% IV CONT .Q20H PRN if PN is interrupted Dextrose 1,000 mls @ 100 mls/hr 08/15/25 07:56 Dextrose 5% 1,000 Ml IVPB PRN PRN Hypoglycemia Protocol Multivitamins 1.25 ml/ 1,002.5 mls @ 60 mls/hr 08/15/25 12:00 08/17/25 05:41 Multivitamins 1.25 ml/ Amino IV CONT 50 mls/hr Acids/Electrolytes/Dextrose .[id number] ANNETTE Administration Protocol Fat Emulsion Intravenous 250 mls @ 20.833 mls/hr 08/15/25 12:00 08/16/25 13:04 Lipids 20% IVPB 20 mls/hr Q24H ANNETTE Administration Potassium Phosphate 20 mmol/ 256.6667 mls @ 64.167 mls/hr 08/17/25 08:35 Sodium Chloride IVPB 08/17/25 12:34 ONCE ONE Insulin Aspart 3 - 6 units 08/15/25 08:00 08/17/25 08:59 Insulin Aspart (*Bkc) 100 Units/Ml SUB-Q Not Given TIDWM ANNETTE Protocol Insulin Aspart 1 - 3 units 08/15/25 21:00 08/16/25 21:34 Insulin Aspart (*Bkc) 100 Units/Ml SUB-Q Not Given HS ANNETTE Protocol Losartan Potassium 100 mg 08/11/25 09:00 08/12/25 10:30 Losartan Potassium 100 Mg Tablet PO 100 mg On Hold: 08/12/25 11:48 DAILY ANNETTE Administration Morphine Sulfate 1 mg 08/13/25 18:43 08/17/25 06:14 Morphine Sulfate (*Crx) 4 Mg/Ml Inj IV PUSH 1 mg Q2H PRN Administration Breakthrough Pain Rated 4-6 or NPO Morphine Sulfate 2 mg 08/13/25 18:43 08/17/25 00:03 Morphine Sulfate (*Crx) 4 Mg/Ml Inj IV PUSH 2 mg Q2H PRN Administration Breakthrough Pain Rated 7-10 or NPO Naloxone HCl 0.1 mg 08/10/25 13:04 Naloxone Hcl 0.4 Mg/Ml Vial IV PUSH Q2M PRN Opiate Reversal Ondansetron HCl 4 mg 08/10/25 13:04 Ondansetron Inj 4 Mg/2 Ml Vial IV PUSH Q4H PRN Nausea And Vomiting Oxycodone/Acetaminophen 1 tablet 08/10/25 13:04 08/12/25 10:33 Oxycodone/Acetaminophen (*Crx) 5-325 Mg Tablet PO 1 tablet On Hold: 08/12/25 11:49 Q4H PRN Administration Pain Rated 4-6 Oxycodone/Acetaminophen 1 tab 08/10/25 13:04 08/11/25 15:28 Oxycodone/Acetaminophen (*Crx) 10-325 Mg Tablet PO 1 tab On Hold: 08/12/25 11:49 Q6H PRN Administration Pain Rated 7-10 Phenol 1 spray 08/12/25 15:01 08/14/25 15:36 Phenol/Sod Pheno [place] Wilde (*Bkc) MUCOUS MEM 1 spray PRN PRN Administration Sore Throat Sodium Chloride 10 ml 08/15/25 14:00 08/17/25 05:40 Central Line Flush IV PUSH 10 ml Q8HR ANNETTE Administration Sodium Chloride 10 ml 08/15/25 11:41 Central Line Flush IV PUSH PRN PRN with TPN bag changes Sodium Chloride 20 ml 08/15/25 11:41 Central Line Flush IV PUSH PRN PRN after blood draws Tramadol HCl 50 mg 08/10/25 13:04 Tramadol Hcl (*Crx) 50 Mg Tablet PO On Hold: 08/12/25 11:49 Q4H PRN Pain Rated 1-3 Trazodone HCl 50 mg 08/10/25 13:04 Trazodone Hcl 50 Mg Tablet PO On Hold: 08/12/25 11:49 HS PRN Insomnia Umeclidinium/Vilanterol 1 puff 08/10/25 14:00 08/17/25 07:26 Umeclidinium/Vilanterol 62.5-25 Mcg Ellipta INHALATION 1 puff DAILY ANNETTE Administration Radiology Results: ITS Impressions Chest CTA 08/13/25 16:42 IMPRESSION: 1. Negative for pulmonary embolism. Bilateral probable pneumonia. 2. Intra-abdominal free air possibly postoperative in nature relatively unchanged compared to the previous exam Abdomen/Pelvis CT 08/15/25 08:38 IMPRESSION: 1. Ileus and/or developing small bowel obstruction. 2. Free intraperitoneal air favoring recent postoperative change. 3. Peritonitis, with scattered ascites and interloop fluid. 4. Worrisome for cystitis, unless recent catheter manipulation. 5. Significant bibasilar atelectasis and/or airspace disease, with small left effusion. Catheter Placement CT 08/16/25 14:04 IMPRESSION: 1. Successful CT-guided right transgluteal abscess drainage. 2. 60 mL fluid was sent for aerobic and anaerobic cultures. 3. The catheter will be managed by Dr. Anderson. Abdomen X-Ray 08/17/25 06:19 Impression: 1: Persistent dilated small bowel loops without significant change, partial small bowel obstruction versus ileus. 2: Patchy left basilar airspace disease which may represent atelectasis or pneumonia. Labs Labs: Laboratory Results - last 24 hr 08/16/25 08/17/25 13:31 06:06 WBC 9.9 RBC 3.54 L Hgb 11.7 L Hct 35.8 L MCV 101.1 H MCH 33.1 MCHC 32.7 RDW 14.1 Plt Count 228 MPV 8.1 Immature Gran % (Auto) 2.3 H Neut % (Auto) 73.1 Lymph % (Auto) 10.2 L [place] % (Auto) 9.2 H Eos % (Auto) 4.4 Baso % (Auto) 0.8 Lymph # (Auto) 1.01 [place] # (Auto) 0.9 H Eos # (Auto) 0.4 H Baso # (Auto) 0.1 Abs Immat Gran (auto) 0.23 H Absolute Neuts (auto) 7.3 H Absolute Nucleated RBC 0.000 Nucleated RBC % 0.0 Sodium 144 Potassium 3.2 L Chloride 107 Carbon Dioxide 20 L Anion Gap 17 H BUN 8 L Creatinine 0.79 Estim Creat Clear Calc 88 Estimated GFR > 60 Glucose 106 POC Capillary Glucose 118 H Calcium 7.2 L Phosphorus 2.3 L C-Reactive Protein 8.3 H Quality VTE Prophylaxis VTE prophylaxis: pharmacologic ordered
[2025-08-17] MEDS: FAMOTIDINE 20 MG/2 ML VIAL IV PUSH ×2 (09:06→20:36)
[2025-08-17] MEDS: ENOXAPARIN 40 MG/0.4 ML SYRINGE SUB-Q (09:06)
[2025-08-17] MEDS: POTASSIUM PHOS,M-BASIC-D-BASIC 20 MMOL in SODIUM CHLORIDE 0.9% IV 250 ML 64.17 MMOL IVPB (11:31)
[2025-08-17] MEDS: FAT EMULSIONS IV 20% 250 ML 20 ML IVPB (11:50)
--- NOTE | 2025-08-17 14:26 | PM.PNGS ---
Progress Note: A&P Assessment and Plan (1) Intra-abdominal abscess: Code(s): K65.1 - Peritoneal abscess Status: Acute Assessment and Plan: Percutaneous drainage in Radiology yesterday. Drain output appears to be enteric contents. Discussed with the patient that the contents of his drain are consistent with a bowel perforation and we would recommend proceeding with an exploratory laparotomy, possible bowel resection, possible ostomy, by Dr. Anderson today. Will keep him NPO with NG tube decompression and TPN. (2) Obstruction of small intestine after surgical procedure: Code(s): K91.30 - Postprocedural intestinal obstruction, unspecified as to partial versus complete Status: Acute Assessment and Plan: SBFT ordered this morning without progression of contrast at the 1 hour x-ray when reviewed, but now with findings concerning for bowel perforation (as mentioned above). Will stop his SBFT and put his NG tube back to medium continuous suction. Proceed to the OR for exploratory laparotomy today. (3) Protein-calorie malnutrition, severe: Code(s): E43 - Unspecified severe protein-calorie malnutrition Status: Acute Assessment and Plan: Continue TPN, rate increased to 70 mL/hr (4) Status post colon resection: Code(s): Z90.49 - Acquired absence of other specified parts of digestive tract Status: Acute Assessment and Plan: KATHARINA sigmoidectomy on 08/10/[address] 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 Continue prophylactic Lovenox for now (8) Bronchiectasis: Qualifiers: Bronchiectasis type: uncomplicated Qualified Code(s): J47.9 - Bronchiectasis, uncomplicated Code(s): J47.9 - Bronchiectasis, uncomplicated Status: Chronic Plan I have discussed the patient's case, recommendations, and treatment plan with Dr. Anderson. Subjective Subjective Date/Time Seen: 08/17/25 14:26 Post Op day: 7 (Hand access laparoscopic sigmoidectomy with stapled 29 EEA anastomosis) Interval history: He had a SBFT this morning and the nurse had called with concerns of his drain output. He had 400 cc emptied from the drain this morning before going down for the contrast test and when he returned, he had another 700 cc empted from the drain. She reports it looking green in appearance. He has had x-rays for the SBFT up to 1 hour and the contrast appears to still be in the stomach on the most recent plain film. After the call from the nurse, I have come to evaluate the patient. He appears comfortable in the bed. Patient reports having moderate lower abdominal pain, unchanged from yesterday. No BMs today but he had a 3 bowel movements charted yesterday. WBC count normal today. Exam Const: General: comfortable and no acute distress Orientation/consciousness: patient oriented x3 GI: Inspection: non-distended and incision (dry and glue intact, no erythema) GI Palp: Yes Soft to palpation, Yes Tenderness to palpation present (GI) (very mild diffuse tenderness, more focal tenderness in the LLQ), No Guarding due to palpation present (GI) and No Rebound tenderness present Auscultation: Hypoactive bowel sounds present Other: perc drain with clear bilious-appearing drainage c/w enteric contents Objective Data Vital Signs Vital Signs: Vital Signs - 24 hr 08/16/25 16:00 08/16/25 20:00 08/16/25 20:45 Temperature 99.4 F 97.9 F Pulse Rate 96 97 Respiratory Rate 22 H 20 Blood Pressure 154/87 H 151/86 H Pulse Oximetry 95 95 Oxygen Delivery Room Air 08/17/25 00:00 08/17/25 04:00 08/17/25 07:28 Temperature 97.8 F 98.1 F Pulse Rate 97 97 91 Respiratory Rate 20 20 18 Blood Pressure 143/84 H 147/92 H Pulse Oximetry 94 94 Oxygen Delivery 08/17/25 08:00 Temperature 98.0 F Pulse Rate 91 Respiratory Rate 18 Blood Pressure 140/89 Pulse Oximetry 96 Oxygen Delivery Intake/Output Intake/Output: Intake & Output 08/14/25 08/15/25 08/16/25 08/17/25 23:59 23:59 23:59 23:59 Intake Total 3070 2200.0 3474.7 1851.2 Output Total 2800 1800 2125 2150 Balance 270 400.0 1349.7 -298.8 Meds/Results Medications: Active Medications Generic Name Dose Route Start Last Admin Trade Name Freq PRN Reason Stop Dose Admin Albuterol 2 puff 08/10/25 13:04 Albuterol Sulfate (*Sp) Aerosol 1 Puff INHALATION Q6H PRN Shortness Of Breath Dextrose 12.5 gm 08/15/25 07:56 Dextrose 50% 25 Gm/50 Ml Syringe IV PUSH PRN PRN Hypoglycemia Protocol Enoxaparin Sodium 40 mg 08/11/25 09:00 08/17/25 09:06 Enoxaparin 40 Mg/0.4 Ml Syringe SUB-Q 40 mg DAILY ANNETTE Administration Famotidine 20 mg 08/10/25 21:00 08/17/25 09:06 Famotidine 20 Mg/2 Ml Vial IV PUSH 20 mg Q12HR ANNETTE Administration Glucagon 1 mg 08/15/25 07:56 Glucagon For Inj 1 Mg Vial IM PRN PRN Hypoglycemia Protocol Glucose 15 gm 08/15/25 07:56 Glucose Oral Gel 15 Gm Of Glucse In 37.5 Gm Tube PO PRN PRN Hypoglycemia Protocol Hydrochlorothiazide 12.5 mg 08/11/25 09:00 08/12/25 10:31 Hydrochlorothiazide 12.5 Mg Capsule PO 12.5 mg On Hold: 08/12/25 11:48 QAM ANNETTE Administration Ibuprofen 800 mg in 200 mls @ 400 mls/hr 08/10/25 13:04 Caldolor 800 Mg/200 Ml IVPB Q6H PRN Breakthrough Pain Rated 1-3 or NPO Piperacillin Sod/Tazobactam 50 mls @ 100 mls/hr 08/12/25 12:00 08/17/25 11:49 Sod 3.375 gm/ Sodium Chloride IVPB 100 mls/hr Q6H ANNETTE Administration Potassium Chloride/Dextrose/Sod Cl 1,000 mls @ 70 mls/hr 08/12/25 12:00 08/17/25 05:40 Kcl 40 Meq/D5ns IV CONT 80 mls/hr .[id number] ANNETTE Administration Dextrose 1,000 mls @ 50 mls/hr 08/15/25 07:56 Dextrose 10% IV CONT .Q20H PRN if PN is interrupted Dextrose 1,000 mls @ 100 mls/hr 08/15/25 07:56 Dextrose 5% 1,000 Ml IVPB PRN PRN Hypoglycemia Protocol Multivitamins 1.25 ml/ 1,002.5 mls @ 70 mls/hr 08/15/25 12:00 08/17/25 05:41 Multivitamins 1.25 ml/ Amino IV CONT 50 mls/hr Acids/Electrolytes/Dextrose .[id number] ANNETTE Administration Protocol Fat Emulsion Intravenous 250 mls @ 20.833 mls/hr 08/15/25 12:00 08/17/25 11:50 Lipids 20% IVPB 20 mls/hr Q24H ANNETTE Administration Insulin Aspart 3 - 6 units 08/15/25 08:00 08/17/25 12:10 Insulin Aspart (*Bkc) 100 Units/Ml SUB-Q Not Given TIDWM ANNETTE Protocol Insulin Aspart 1 - 3 units 08/15/25 21:00 08/16/25 21:34 Insulin Aspart (*Bkc) 100 Units/Ml SUB-Q Not Given HS ANNETTE Protocol Losartan Potassium 100 mg 08/11/25 09:00 08/12/25 10:30 Losartan Potassium 100 Mg Tablet PO 100 mg On Hold: 08/12/25 11:48 DAILY ANNETTE Administration Morphine Sulfate 1 mg 08/13/25 18:43 08/17/25 11:48 Morphine Sulfate (*Crx) 4 Mg/Ml Inj IV PUSH 1 mg Q2H PRN Administration Breakthrough Pain Rated 4-6 or NPO Morphine Sulfate 2 mg 08/13/25 18:43 08/17/25 00:03 Morphine Sulfate (*Crx) 4 Mg/Ml Inj IV PUSH 2 mg Q2H PRN Administration Breakthrough Pain Rated 7-10 or NPO Naloxone HCl 0.1 mg 08/10/25 13:04 Naloxone Hcl 0.4 Mg/Ml Vial IV PUSH Q2M PRN Opiate Reversal Ondansetron HCl 4 mg 08/10/25 13:04 Ondansetron Inj 4 Mg/2 Ml Vial IV PUSH Q4H PRN Nausea And Vomiting Oxycodone/Acetaminophen 1 tablet 08/10/25 13:04 08/12/25 10:33 Oxycodone/Acetaminophen (*Crx) 5-325 Mg Tablet PO 1 tablet On Hold: 08/12/25 11:49 Q4H PRN Administration Pain Rated 4-6 Oxycodone/Acetaminophen 1 tab 08/10/25 13:04 08/11/25 15:28 Oxycodone/Acetaminophen (*Crx) 10-325 Mg Tablet PO 1 tab On Hold: 08/12/25 11:49 Q6H PRN Administration Pain Rated 7-10 Phenol 1 spray 08/12/25 15:01 08/14/25 15:36 Phenol/Sod Pheno [place] Wilde (*Bkc) MUCOUS MEM 1 spray PRN PRN Administration Sore Throat Sodium Chloride 10 ml 08/15/25 14:00 08/17/25 05:40 Central Line Flush IV PUSH 10 ml Q8HR ANNETTE Administration Sodium Chloride 10 ml 08/15/25 11:41 Central Line Flush IV PUSH PRN PRN with TPN bag changes Sodium Chloride 20 ml 08/15/25 11:41 Central Line Flush IV PUSH PRN PRN after blood draws Tramadol HCl 50 mg 08/10/25 13:04 Tramadol Hcl (*Crx) 50 Mg Tablet PO On Hold: 08/12/25 11:49 Q4H PRN Pain Rated 1-3 Trazodone HCl 50 mg 08/10/25 13:04 Trazodone Hcl 50 Mg Tablet PO On Hold: 08/12/25 11:49 HS PRN Insomnia Umeclidinium/Vilanterol 1 puff 08/10/25 14:00 08/17/25 07:26 Umeclidinium/Vilanterol 62.5-25 Mcg Ellipta INHALATION 1 puff DAILY ANNETTE Administration Radiology Results: ITS Impressions Chest CTA 08/13/25 16:42 IMPRESSION: 1. Negative for pulmonary embolism. Bilateral probable pneumonia. 2. Intra-abdominal free air possibly postoperative in nature relatively unchanged compared to the previous exam Abdomen/Pelvis CT 08/15/25 08:38 IMPRESSION: 1. Ileus and/or developing small bowel obstruction. 2. Free intraperitoneal air favoring recent postoperative change. 3. Peritonitis, with scattered ascites and interloop fluid. 4. Worrisome for cystitis, unless recent catheter manipulation. 5. Significant bibasilar atelectasis and/or airspace disease, with small left effusion. Catheter Placement CT 08/16/25 14:04 IMPRESSION: 1. Successful CT-guided right transgluteal abscess drainage. 2. 60 mL fluid was sent for aerobic and anaerobic cultures. 3. The catheter will be managed by Dr. Anderson. Abdomen X-Ray 08/17/25 06:19 Impression: 1: Persistent dilated small bowel loops without significant change, partial small bowel obstruction versus ileus. 2: Patchy left basilar airspace disease which may represent atelectasis or pneumonia. Small Bowel X-Ray 08/17/25 13:42 Impression: 1: Incomplete small bowel study with delayed passage of contrast into the distal small bowel. Study terminated due to complications with patient. Proximal small bowel dilated with multiple dilated distal loops of small bowel. Findings compatible with obstruction. Labs Labs: Laboratory Results - last 24 hr 08/17/25 08/17/25 06:06 11:48 WBC 9.9 RBC 3.54 L Hgb 11.7 L Hct 35.8 L MCV 101.1 H MCH 33.1 MCHC 32.7 RDW 14.1 Plt Count 228 MPV 8.1 Immature Gran % (Auto) 2.3 H Neut % (Auto) 73.1 Lymph % (Auto) 10.2 L [place] % (Auto) 9.2 H Eos % (Auto) 4.4 Baso % (Auto) 0.8 Lymph # (Auto) 1.01 [place] # (Auto) 0.9 H Eos # (Auto) 0.4 H Baso # (Auto) 0.1 Abs Immat Gran (auto) 0.23 H Absolute Neuts (auto) 7.3 H Absolute Nucleated RBC 0.000 Nucleated RBC % 0.0 Sodium 144 Potassium 3.2 L Chloride 107 Carbon Dioxide 20 L Anion Gap 17 H BUN 8 L Creatinine 0.79 Estim Creat Clear Calc 88 Estimated GFR > 60 Glucose 106 POC Capillary Glucose 127 H Calcium 7.2 L Phosphorus 2.3 L C-Reactive Protein 8.3 H
--- NOTE | 2025-08-17 16:16 | P.PNUR_ITS ---
Progress Note: A&P Assessment and Plan (1) Urethral stricture: Qualifiers: Urethral stricture type: unspecified stricture type Urethral stricture sex-location: male urethra-unspecified Qualified Code(s): N35.919 - Unspecified urethral stricture, male, unspecified site Code(s): N35.919 - Unspecified urethral stricture, male, unspecified site Status: Chronic Plan s/p 08/10/2025 urethral meatal dilation, cystoscopy, bilateral ureteral identification catheter insertion (Dr. Mayers) - Indwelling Anand catheter placement requested by the general surgery team this afternoon (08/17/2025) prior to patient's takeback to the OR for ex-lap with the general surgery team - I was able to place a 14-Gabonese coude Anand catheter transurethrally into the patient's bladder through his hypospadic meatus. I inflated 10 mL of sterile water in the balloon, seated the balloon at the bladder neck with return of clear yellow urine, and secured the Anand to a stat lock on the patient's right upper thigh. - Patient's Anand may be discontinued at the discretion of the general surgery team - Urology will follow peripherally. Contact the on-call urologist for any questions/concerns Subjective Subjective Date/Time Seen: 08/17/25 16:16 Interval history: Patient seen and examined in pre-op. He is being taken for ex-lap by general surgery team later today, who requested from urology team to place Anand catheter prior to their surgery. Patient was seen 1 week ago for Anand catheter placement by my colleague and had meatal stenosis which required urethral calibration and dilation. Anand catheter was subsequently removed. Since that time patient denies difficulty urinating. Review of Systems Review of Systems: Per HPI Exam Narrative: no acute distress Const: General: comfortable HENMT: Face/Nose/Sinus: Normal nares present Eyes: General: appearance normal, both eyes and all related structures Resp: Effort & Inspection: normal respiratory effort : Other: Circumcised phallus with hypospadic meatus near the coronal sulcus. No penile or scrotal lesions. Testes descended bilaterally. Skin: General skin exam: normal color Neuro: Speech: normal speech Objective Data Vital Signs Vital Signs: Vital Signs - 24 hr 08/16/25 20:00 08/16/25 20:45 08/17/25 00:00 Temperature 36.6 C 36.6 C Pulse Rate 97 97 Respiratory Rate 20 20 Blood Pressure 151/86 H 143/84 H Pulse Oximetry 95 94 Oxygen Delivery Room Air 08/17/25 04:00 08/17/25 07:28 08/17/25 08:00 Temperature 36.7 C 36.7 C Pulse Rate 97 91 91 Respiratory Rate 20 18 18 Blood Pressure 147/92 H 140/89 Pulse Oximetry 94 96 Oxygen Delivery 08/17/25 12:00 08/17/25 15:30 Temperature 37.1 C 36.9 C Pulse Rate 97 102 H Respiratory Rate 18 18 Blood Pressure 148/90 H 140/80 Pulse Oximetry 96 95 Oxygen Delivery Room Air Intake/Output Intake/Output: Intake & Output 08/14/25 08/15/25 08/16/25 08/17/25 23:59 23:59 23:59 23:59 Intake Total 3070 2200.0 3474.7 1851.2 Output Total 2800 1800 2125 2150 Balance 270 400.0 1349.7 -298.8 Meds/Results Medications: Active Medications Generic Name Dose Route Start Last Admin Trade Name Freq PRN Reason Stop Dose Admin Albuterol 2 puff 08/10/25 13:04 Albuterol Sulfate (*Sp) Aerosol 1 Puff INHALATION Q6H PRN Shortness Of Breath Dextrose 12.5 gm 08/15/25 07:56 Dextrose 50% 25 Gm/50 Ml Syringe IV PUSH PRN PRN Hypoglycemia Protocol Enoxaparin Sodium 40 mg 08/11/25 09:00 08/17/25 09:06 Enoxaparin 40 Mg/0.4 Ml Syringe SUB-Q 40 mg DAILY ANNETTE Administration Famotidine 20 mg 08/10/25 21:00 08/17/25 09:06 Famotidine 20 Mg/2 Ml Vial IV PUSH 20 mg Q12HR ANNETTE Administration Glucagon 1 mg 08/15/25 07:56 Glucagon For Inj 1 Mg Vial IM PRN PRN Hypoglycemia Protocol Glucose 15 gm 08/15/25 07:56 Glucose Oral Gel 15 Gm Of Glucse In 37.5 Gm Tube PO PRN PRN Hypoglycemia Protocol Hydrochlorothiazide 12.5 mg 08/11/25 09:00 08/12/25 10:31 Hydrochlorothiazide 12.5 Mg Capsule PO 12.5 mg On Hold: 08/12/25 11:48 QAM ANNETTE Administration Ibuprofen 800 mg in 200 mls @ 400 mls/hr 08/10/25 13:04 Caldolor 800 Mg/200 Ml IVPB Q6H PRN Breakthrough Pain Rated 1-3 or NPO Piperacillin Sod/Tazobactam 50 mls @ 100 mls/hr 08/12/25 12:00 08/17/25 11:49 Sod 3.375 gm/ Sodium Chloride IVPB 100 mls/hr Q6H ANNETTE Administration Potassium Chloride/Dextrose/Sod Cl 1,000 mls @ 70 mls/hr 08/12/25 12:00 08/17/25 05:40 Kcl 40 Meq/D5ns IV CONT 80 mls/hr .[id number] ANNETTE Administration Dextrose 1,000 mls @ 50 mls/hr 08/15/25 07:56 Dextrose 10% IV CONT .Q20H PRN if PN is interrupted Dextrose 1,000 mls @ 100 mls/hr 08/15/25 07:56 Dextrose 5% 1,000 Ml IVPB PRN PRN Hypoglycemia Protocol Multivitamins 1.25 ml/ 1,002.5 mls @ 70 mls/hr 08/15/25 12:00 08/17/25 05:41 Multivitamins 1.25 ml/ Amino IV CONT 50 mls/hr Acids/Electrolytes/Dextrose .[id number] ANNETTE Administration Protocol Fat Emulsion Intravenous 250 mls @ 20.833 mls/hr 08/15/25 12:00 08/17/25 11:50 Lipids 20% IVPB 20 mls/hr Q24H ANNETTE Administration Insulin Aspart 3 - 6 units 08/15/25 08:00 08/17/25 12:10 Insulin Aspart (*Bkc) 100 Units/Ml SUB-Q Not Given TIDWM ANNETTE Protocol Insulin Aspart 1 - 3 units 08/15/25 21:00 08/16/25 21:34 Insulin Aspart (*Bkc) 100 Units/Ml SUB-Q Not Given HS ANNETTE Protocol Losartan Potassium 100 mg 08/11/25 09:00 08/12/25 10:30 Losartan Potassium 100 Mg Tablet PO 100 mg On Hold: 08/12/25 11:48 DAILY ANNETTE Administration Morphine Sulfate 1 mg 08/13/25 18:43 08/17/25 11:48 Morphine Sulfate (*Crx) 4 Mg/Ml Inj IV PUSH 1 mg Q2H PRN Administration Breakthrough Pain Rated 4-6 or NPO Morphine Sulfate 2 mg 08/13/25 18:43 08/17/25 14:45 Morphine Sulfate (*Crx) 4 Mg/Ml Inj IV PUSH 2 mg Q2H PRN Administration Breakthrough Pain Rated 7-10 or NPO Naloxone HCl 0.1 mg 08/10/25 13:04 Naloxone Hcl 0.4 Mg/Ml Vial IV PUSH Q2M PRN Opiate Reversal Ondansetron HCl 4 mg 08/10/25 13:04 Ondansetron Inj 4 Mg/2 Ml Vial IV PUSH Q4H PRN Nausea And Vomiting Oxycodone/Acetaminophen 1 tablet 08/10/25 13:04 08/12/25 10:33 Oxycodone/Acetaminophen (*Crx) 5-325 Mg Tablet PO 1 tablet On Hold: 08/12/25 11:49 Q4H PRN Administration Pain Rated 4-6 Oxycodone/Acetaminophen 1 tab 08/10/25 13:04 08/11/25 15:28 Oxycodone/Acetaminophen (*Crx) 10-325 Mg Tablet PO 1 tab On Hold: 08/12/25 11:49 Q6H PRN Administration Pain Rated 7-10 Phenol 1 spray 08/12/25 15:01 08/14/25 15:36 Phenol/Sod Pheno [place] Wilde (*Bkc) MUCOUS MEM 1 spray PRN PRN Administration Sore Throat Sodium Chloride 10 ml 08/15/25 14:00 08/17/25 14:27 Central Line Flush IV PUSH 10 ml Q8HR ANNETTE Administration Sodium Chloride 10 ml 08/15/25 11:41 Central Line Flush IV PUSH PRN PRN with TPN bag changes Sodium Chloride 20 ml 08/15/25 11:41 Central Line Flush IV PUSH PRN PRN after blood draws Tramadol HCl 50 mg 08/10/25 13:04 Tramadol Hcl (*Crx) 50 Mg Tablet PO On Hold: 08/12/25 11:49 Q4H PRN Pain Rated 1-3 Trazodone HCl 50 mg 08/10/25 13:04 Trazodone Hcl 50 Mg Tablet PO On Hold: 08/12/25 11:49 HS PRN Insomnia Umeclidinium/Vilanterol 1 puff 08/10/25 14:00 08/17/25 07:26 Umeclidinium/Vilanterol 62.5-25 Mcg Ellipta INHALATION 1 puff DAILY ANNETTE Administration Radiology Results: ITS Impressions Chest CTA 08/13/25 16:42 IMPRESSION: 1. Negative for pulmonary embolism. Bilateral probable pneumonia. 2. Intra-abdominal free air possibly postoperative in nature relatively unchanged compared to the previous exam Abdomen/Pelvis CT 08/15/25 08:38 IMPRESSION: 1. Ileus and/or developing small bowel obstruction. 2. Free intraperitoneal air favoring recent postoperative change. 3. Peritonitis, with scattered ascites and interloop fluid. 4. Worrisome for cystitis, unless recent catheter manipulation. 5. Significant bibasilar atelectasis and/or airspace disease, with small left effusion. Catheter Placement CT 08/16/25 14:04 IMPRESSION: 1. Successful CT-guided right transgluteal abscess drainage. 2. 60 mL fluid was sent for aerobic and anaerobic cultures. 3. The catheter will be managed by Dr. Anderson. Abdomen X-Ray 08/17/25 06:19 Impression: 1: Persistent dilated small bowel loops without significant change, partial small bowel obstruction versus ileus. 2: Patchy left basilar airspace disease which may represent atelectasis or pneumonia. Small Bowel X-Ray 08/17/25 13:42 Impression: 1: Incomplete small bowel study with delayed passage of contrast into the distal small bowel. Study terminated due to complications with patient. Proximal small bowel dilated with multiple dilated distal loops of small bowel. Findings compatible with obstruction. Labs Labs: Laboratory Results - last 24 hr 08/17/25 08/17/25 06:06 11:48 WBC 9.9 RBC 3.54 L Hgb 11.7 L Hct 35.8 L MCV 101.1 H MCH 33.1 MCHC 32.7 RDW 14.1 Plt Count 228 MPV 8.1 Immature Gran % (Auto) 2.3 H Neut % (Auto) 73.1 Lymph % (Auto) 10.2 L [place] % (Auto) 9.2 H Eos % (Auto) 4.4 Baso % (Auto) 0.8 Lymph # (Auto) 1.01 [place] # (Auto) 0.9 H Eos # (Auto) 0.4 H Baso # (Auto) 0.1 Abs Immat Gran (auto) 0.23 H Absolute Neuts (auto) 7.3 H Absolute Nucleated RBC 0.000 Nucleated RBC % 0.0 Sodium 144 Potassium 3.2 L Chloride 107 Carbon Dioxide 20 L Anion Gap 17 H BUN 8 L Creatinine 0.79 Estim Creat Clear Calc 88 Estimated GFR > 60 Glucose 106 POC Capillary Glucose 127 H Calcium 7.2 L Phosphorus 2.3 L C-Reactive Protein 8.3 H
--- NOTE | 2025-08-17 16:57 | WPDANESEPPF ---
Anes - Initial Pre Proc Eval Procedure: Operation Date: 08/10/25 07:30 Proposed Procedures p Hand Assisted Laparoscopic Sigmoidectomy - José Luis Anderson MD s Bilateral Ureteral Stent Placement for Abdominal Surgery - Jarrod Longoria MD Operation Date: 08/12/25 14:00 Proposed Procedures p Exploratory Laparotomy with Possible Ileostomy or Colostomy - José Luis Anderson MD Operation Date: 08/16/25 11:00 Proposed Procedures p Computed Tomography Guided Abscess Catheter Placement - Kolton Earl MD Operation Date: 08/17/25 15:30 Proposed Procedures p Exploratory Laparotomy for Bowel Perforation - José Luis Anderson MD Date/Time: 08/17/25 16:57 Surgeon: José Luis Anderson MD Pre Op Diagnosis: Diverticulitis Patient Data Age: 60 Gender: M Height: 1.78 m Weight: 92.2 kg Last Vital Signs Temp 36.9 C 08/17/25 15:30 Pulse 102 H 08/17/25 15:30 Resp 18 08/17/25 15:30 BP 140/80 08/17/25 15:30 Pulse Ox 95 08/17/25 15:30 O2 Del Method Room Air 08/17/25 15:30 O2 Flow Rate 5 08/16/25 12:10 Allergies Allergy/AdvReac Type Severity Reaction Status Date / Time No Known Allergies Allergy Verified 08/17/25 15:50 Home Medications ?Medication ?Instructions ?Recorded ?Confirmed ?Type losartan 100 1 tablet PO DAILY 02/01/25 08/10/25 History mg-hydrochlorothiazide 12.5 mg tablet tramadol 50 mg tablet 50 mg PO BID PRN pain 02/01/25 08/01/25 History umeclidinium 62.5 mcg-vilanterol 1 inh inhalation Q24H 04/07/25 08/01/25 Rx 25 mcg/actuation powdr for bronchiectasis 3 months #180 ea inhalation (Anoro Ellipta) albuterol sulfate 90 mcg/actuation 2 inh inhalation Q6H PRN shortness 04/26/25 08/01/25 Rx aerosol inhaler (Ventolin HFA) of breath 1 month #8.5 grams ciprofloxacin HCl 500 mg tablet 500 mg PO .COMPLEX #1 tablet 08/01/25 08/10/25 Rx metronidazole 500 mg tablet 500 mg PO .COMPLEX #3 tabs 08/01/25 08/10/25 Rx rivaroxaban 20 mg tablet (Xarelto) 20 mg PO DAILY 08/01/25 08/10/25 History Laboratory Tests 08/17/25 08/17/25 08/17/25 06:06 11:48 14:26 WBC 9.9 K/mm3 (4.5-10.0) RBC 3.54 L M/mm3 (4.6-6.20) Hgb 11.7 L g/dL (14.0-18.0) Hct 35.8 L % (42.0-52.0) MCV 101.1 H fl (80-100) MCH 33.1 pg (26-34) MCHC 32.7 g/dl (32-36) RDW 14.1 % (11.5-14.5) Plt Count 228 k/mm3 (150-375) MPV 8.1 fl (7.4-10.4) Immature Gran % (Auto) 2.3 H % (0-0.5) Neut % (Auto) 73.1 % (45.5-73.1) Lymph % (Auto) 10.2 L % (18.3-44.2) [place] % (Auto) 9.2 H % (2.6-8.5) Eos % (Auto) 4.4 % (0-4.4) Baso % (Auto) 0.8 % (0.2-1.2) Lymph # (Auto) 1.01 K/mm3 (0.9-3.2) [place] # (Auto) 0.9 H K/mm3 (0.1-0.6) Eos # (Auto) 0.4 H K/mm3 (0-0.3) Baso # (Auto) 0.1 K/mm3 (0.0-0.1) Abs Immat Gran (auto) 0.23 H K/mm3 (0.00-0.031) Absolute Neuts (auto) 7.3 H K/mm3 (1.3-6.7) Absolute Nucleated RBC 0.000 K/mm3 (0.0-0.012) Nucleated RBC % 0.0 % (0.0-0.2) Sodium 144 mmol/L (137-145) Potassium 3.2 L mmol/L (3.4-5.0) Chloride 107 mmol/L (98-107) Carbon Dioxide 20 L mmol/L (22-30) Anion Gap 17 H mmol/L (4-12) BUN 8 L mg/dL (9-20) Creatinine 0.79 mg/dL (0.7-1.3) Estim Creat Clear Calc 88 ml/min Estimated GFR > 60 (59 - ) Glucose 106 mg/dL (65-110) POC Capillary Glucose 127 H mg/dl (65-105) Calcium 7.2 L mg/dL (8.4-10.2) Phosphorus 2.3 L mg/dL (2.5-4.5) C-Reactive Protein 8.3 H mg/dL (<1.0) M. pneumoniae (PCR) Pending Patient hx anesthesia problems: post op nausea/vomiting Family hx anesthesia problems: none Results Review: All pre-operative results and documents have been reviewed as part of the pre-operative evaluation. [facility]LY [facility] Past Medical History Medical History History of open sigmoidectomy Hand access laparoscopic sigmoidectomy with stapled 29 EEA anastomosis 08/10/2025 Dr. Anderson Bronchiectasis History of pulmonary embolism History of pulmonary embolus (PE) History of DVT (deep vein thrombosis) Hypertension Surgical History Surgical History Hx of tonsillectomy Social History Social History Smoking status: Never smoker Alcohol intake: current Drinks per week: 21 Alcohol use details: BEER Substance use: never Substance use type: does not use Lack of Transportation: No Lack of Food: Never True Current Housing: I Have Housing Concerned About Future Housing: No Difficulty Paying Gas/Electric Bills: No Difficulty Paying for Meds: No Currently Unemployed: No Education: High School Diploma/GED Difficulty w/ Childcare or Family Care: No Living arrangements: with family Additional living arrangements comments: Spiritual care concerns: No Anes - Eval Final PreProcedure Day of Procedure 08/17/25 16:57 Patient weight: overweight Heart: regular rate and rhythm Lungs: clear to auscultation Airway: Mallampati scale class II Neurological: alert and oriented Last oral intake: >/= 8 hours ASA classification: III Emergent: no Anesthetic plan: proceed Anesthesia type and monitoring: general ETT and standard monitoring Results Review: All pre-operative results and documents have been reviewed as part of the pre-operative evaluation. Informed Consent: The patient's anesthetic plan and its attendant risks and benefits were discussed with the patient/family/POA. Questions were solicited and answers provided to the satisfaction of the patient/family/POA.
--- NOTE | 2025-08-17 17:01 | WPDHPUPDATE1 ---
History and Physical Update Update Date/Time: 08/17/25 17:01 History and Physical has been reviewed, including an updated exam of the patient. There are NO changes in the patient's condition. Risks, benefits, and alternatives have been discussed and questions answered. Patient agrees to proceed with procedure.
[2025-08-17] MEDS: ceFAZolin 2 GM in SODIUM CHLORIDE 0.9% IV 50 ML 100 ML IVPB (17:04)
[2025-08-17] MEDS: FENTANYL 2,500MCG/NS250ML(*CRX 2,500 MCG/250 ML BAG IV CONT (19:45)
[2025-08-17] MEDS: MIDAZOLAM 100MG/NS 100ML(*CRX) 100 MG/100 ML BAG IV CONT (19:51)
--- NOTE | 2025-08-17 19:58 | W.PM.PROC2 ---
Procedure Note - Detailed Date of Procedure 08/17/25 Pre-op Diagnosis Bowel perforation Post-op Diagnosis Same Procedure Performed Exploratory laparotomy, repair small-bowel perforation, adhesiolysis was sent, removal pigtail catheter drain Surgeon José Luis Anderson MD [employer] Controller Lea Galan [facility] Anesthesia General Indications Patient is 7 days status post hand access laparoscopic sigmoidectomy for diverticulitis. He has had problems with it ileus as well as pelvic fluid collections thought to be old blood but the possibly infected hematomas. He had a pigtail catheter was placed the under imaging yesterday. He started draining enteric content from his pigtail catheter this morning. He is taken to surgery now for bowel perforation Findings There were multiple adhesions and inflammatory adhesions with exudate on the bowel surfaces. There was a jejunal perforation and leakage. There were 2 wounds that were both quite small where in this area. There was a 4 x 2 mm wound that was actively leaking enteric content. There was a smaller, 3 x 1 mm wound about 6 mm from the larger wound. The smaller wound was not leaking any bowel content. They were in line with each other on the anti mesenteric surface of the jejunum. But no other bowel perforations were noted. There were expected multiple adhesions 7 days postop. The previous anastomosis was carefully reviewed and did not show any abnormal appearance. Pigtail catheter was removed at the conclusion of the procedure. It was located deep in the pelvis as noted on previous imaging. Description of Procedure In the preoperative holding area, Dr. Jonathan blackburn placed a urinary catheter as the patient has a history of hypospadias and urethral stricture. Patient was then taken to surgery and induced into general anesthesia. The entire abdomen was prepped and draped. Procedure started by reopening the hand access incision. The skin was opened and then we slowly dissected through the subcutaneous down to the fascia. Any suture we encountered were removed. As we reached the fascia, the suture knots were removed and the running suture was gently removed. The posterior peritoneum closure was still intact. The chromic suture was carefully removed and we entered the peritoneal cavity. There was no enteric content noted as the anterior surface of the abdominal content was explored. I continued the dissection proceeding towards the lateral left lower quadrant. Eventually the green enteric content was encountered. We suctioned this away. Adhesions were carefully broken up using gentle blunt dissection. These were primarily inflammatory adhesions. Some sharp dissection was required. As we freed the bowel eventually the area of the bowel perforation in the jejunum was seen. As noted above there were 2 very tiny openings on the anti mesenteric surface of the jejunum close to 1 another. The larger of the 2 was leaking enteric content. This area was not involved in any type of adhesion that I could see and seemed to be located somewhat in the pelvis on the left. The perforation did not have any inflammatory exudate or severe edema of the surrounding bowel. I placed interrupted L[place]t 0 muscular sutures of 4-0 silk and closed the 2 perforations in a transverse orientation imbricating the whole area of bowel. There was no sign of further leakage. We continued with exploration of the abdomen. All small bowel adhesions were carefully taken down. There was a lot of oozing or small vessel bleeding throughout as is commonly seen in a postoperative condition requiring surgery. We used suction and irrigation as well as gentle pressure for hemostasis as we explored the abdomen. I carefully freed adhesions and exposed the pelvis where the colorectal anastomosis was located. I was able to visualize this after irrigating and suctioning the pelvis thoroughly.. Both ends of bowel appeared healthy. I did not see any sign of leakage or disruption. There was no sign of infection in the area of the anastomosis. We irrigated and suctioned the pelvis thoroughly. I was able to see the pigtail catheter drain. It was left in place to be removed at the end of the surgery. I then ran the entire small bowel and reviewed the omentum. There was some bleeding in the left upper quadrant from the omentum which I controlled with 2-0 Vicryl suture ligature. I milked some of the enteric content back into the stomach and it was evacuated. We placed a new nasogastric tube and positioned it appropriately. I irrigated the pelvis and left lower quadrant with some dilute peroxide saline mixture. We then irrigated the entire abdomen with warm saline. At this point all looked good. There was no active bleeding. The bowel perforation repair was intact and dry. There were a couple of minor serosal injuries in the proximal ileum. These appeared somewhat old, possibly from the initial surgery. They were superficial and did not seem to extend into the muscular layer. With an abundance of caution, I decided to imbricate this area as well with seromuscular interrupted suture of 4-0 silk. No other bowel abnormalities were appreciated. Right upper I placed a 19 [place] Khanh drain in the left lower quadrant that moved gradually 2 and in the pelvis near where the pigtail catheter was located. The drain was sutured in place with 2-0 silk. We placed the bowel and omentum back in its general anatomic location. The midline fascia was closed with bidirectional #1 PDS suture. The subcutaneous was closed with interrupted 3-0 Vicryl suture. The skin was approximated with wide sharon. Xeroform gauze, fluffs, ABDs and Medipore tape were used for a bulky dressing. The drain was placed to bulb suction. The patient was then turned so the right side was elevated. I removed the dressing, cut the suture, freed the retaining suture and removed the pigtail catheter. Fluffs and Medipore tape were used to drain the exit site. The patient was left intubated and transferred directly to the intensive care unit. Sponge and needle counts were correct x2. Estimated Blood Loss -100 Urine Output 350 Drains Yes (Anand catheter, nasogastric tube, 19 [place] Khanh drain left lower quadrant) Packing No Pathology None sent Complications None Condition Critical Disposition ICU [facility] Billing Surgery - Charge Forward: Surgery Billing (Exploratory laparotomy, repair small-bowel perforation, adhesiolysis was sent, removal pigtail catheter drain)
[2025-08-17] MEDS: MINERAL OIL/WHITE PETROLATUM OINTMENT 1 APPLIC EACH EYE (20:35)
[2025-08-17] MEDS: fentaNYL CITRATE INJ (*CRX) 100 MCG/2 ML VIAL 50 MCG IV PUSH (21:24)
[2025-08-17] MEDS: LACTATED RINGERS 1,000 ML 999 ML IV CONT (21:25)
[2025-08-17] MEDS: MIDAZOLAM HCL (*CRX) 2 MG/2 ML VIAL IV PUSH (21:25)
--- NOTE | 2025-08-17 21:45 | PC.NURSE ---
This patient, Casey Asia Kearns, was received from OR on 08/17/25 at 1930. Pt oriented to unit policies and routines.
[2025-08-17 22:16] LABS: HCO3 ABG 21.2 mEq/l (22.0-26.0); Oxygen Saturation ABG 95.6 % (95.0-100.0); PCO2 ABG 37.7 mmHg (35.0-45.0); PO2 ABG 80.3 mmHg (80.0-100.0)
[2025-08-17 22:17] LABS: Alveolar/Arterial O2 Gradient 233.8 mmHg; Carboxyhemoglobin 1.1 % THb (0-2.0); Methemoglobin ABG 0.2 %THb (0-1.5); Oxygen Content ABG 19.6 %vol (16.0-22.0)
[2025-08-17 22:18] LABS: Fractional Inspired Oxygen 50 %; Modified Allen's Test Pass; PO2 FiO2 Ratio Arterial Blood 1.61 %; Reduced Hemoglobin 4.1 %THb (0-5.0); Site Drawn RIGHT RADIAL
[2025-08-17 22:19] LABS: Arterial Blood Gas Ventilator rate 18 /MIN
[2025-08-17 22:20] LABS: Arterial Blood Gas Tidal Volume 400 ml
[2025-08-18] VITALS (44 sets, daily range): BP systolic 82–131; BP diastolic 64–84; PULSE 79–107; RESP 14–21; TEMP 36.9–37.6; O2SAT 95–100
[2025-08-18 01:45] LABS: MRSA (PCR) NOT DETECTED (NOT DETECTE)
[2025-08-18 04:28] LABS: Alveolar/Arterial O2 Gradient 211.3 mmHg; Carboxyhemoglobin 1.2 % THb (0-2.0); Fractional Inspired Oxygen 50 %; HCO3 ABG 23.2 mEq/l (22.0-26.0); Methemoglobin ABG 0.1 %THb (0-1.5); Oxygen Content ABG 21.0 %vol (16.0-22.0); Oxygen Saturation ABG 97.5 % (95.0-100.0); PCO2 ABG 39.9 mmHg (35.0-45.0); PO2 ABG 100.3 mmHg (80.0-100.0); PO2 FiO2 Ratio Arterial Blood 2.01 %; Reduced Hemoglobin 2.0 %THb (0-5.0)
[2025-08-18 04:29] LABS: Arterial Blood Gas Ventilator rate 18 /MIN; Modified Allen's Test Pass; Site Drawn RIGHT RADIAL
[2025-08-18 04:30] LABS: Arterial Blood Gas Tidal Volume 400 ml
[2025-08-18 05:16] LABS: Hematocrit 41.5 % (42.0-52.0); Hemoglobin 13.4 g/dL (14.0-18.0); Immature Granulocyte Percent A 5.0 % (0-0.5); Lymphocytes Absolute Auto 1.21 K/mm3 (0.9-3.2); Mean Corpuscular HGB Conc 32.3 g/dl (32-36); Mean Corpuscular Hemoglobin 32.5 pg (26-34); Mean Corpuscular Volume 100.7 fl (80-100); Nucleated Red Blood Cells Absolute Auto 0.000 K/mm3 (0.0-0.012); Nucleated Red Blood Cells Perc 0.0 % (0.0-0.2); Platelet Count Result 370 k/mm3 (150-375); Red Blood Count 4.12 M/mm3 (4.6-6.20); White Blood Count 19.4 K/mm3 (4.5-10.0)
[2025-08-18] MEDS: PIPERACILLIN/TAZOBACTAM SOD 3.375 GM in SODIUM CHLORIDE 0.9% IV 50 ML 100 ML IVPB ×3 (05:20→17:51)
[2025-08-18] MEDS: CENTRAL LINE FLUSH 10 ML IV PUSH ×3 (05:20→22:00)
[2025-08-18 06:04] LABS: Alanine Aminotransferase 12 U/L (6-50); Albumin Level 2.5 g/dL (3.5-5.1); Alkaline Phosphatase 77 U/L (38-126); Anion Gap 2 mmol/L (4-12); Aspartate Amino Transferase 31 U/L (17-59); Bilirubin,Total 1.0 mg/dL (0.2-1.3); Blood Urea Nitrogen 13 mg/dL (9-20); CRP 15.3 mg/dL (<1.0); Calcium 7.8 mg/dL (8.4-10.2); Carbon Dioxide 25 mmol/L (22-30); Chloride 103 mmol/L (98-107); Estimated CRCL calculation 63 ml/min; Estimated Glomerular Filt Rate > 60; Glucose 111 mg/dL (65-110); Magnesium 1.7 mg/dL (1.6-2.3); Potassium 5.0 mmol/L (3.4-5.0); Schistocytes None Seen; Sodium 130 mmol/L (137-145); Total Protein 5.4 g/dL (6.3-8.2); Triglycerides 169 mg/dL (<150)
[2025-08-18 06:06] LABS: Toxic Granulation Present
--- NOTE | 2025-08-18 07:03 | WPDANESPN ---
Anes - Prog Note Post-Op Date/Time: 08/18/25 07:03 Cardiovascular status: normal Respiratory status: normal Airway patency: baseline Mental status: baseline Post-Op hydration status: normal Vital Signs: Last Vital Signs Temp 37.2 C 08/18/25 06:00 Pulse 93 08/18/25 06:00 Resp 18 08/18/25 06:00 BP 88/66 L 08/18/25 06:00 Pulse Ox 97 08/18/25 06:00 O2 Del Method Mechanical Ventilation 08/18/25 04:23 O2 Flow Rate 5 08/16/25 12:10 FiO2 50 08/18/25 04:23 Pain Score (VAS): 2 I/O: Intake & Output 08/17/25 08/17/25 08/18/25 15:59 23:59 07:59 Intake Total 50 2840.8 200.3 Output Total 850 350 520 Balance -800 2490.8 -319.7 Laboratory Tests 08/18/25 05:07 08/18/25 05:07 08/17/25 08/17/25 08/17/25 11:48 14:26 19:56 WBC RBC Hgb Hct MCV MCH MCHC RDW Plt Count MPV Immature Gran % (Auto) Neut % (Auto) Lymph % (Auto) [place] % (Auto) Eos % (Auto) Baso % (Auto) Lymph # (Auto) [place] # (Auto) Eos # (Auto) Baso # (Auto) Abs Immat Gran (auto) Absolute Neuts (auto) Absolute Nucleated RBC Band Neutrophils % Nucleated RBC % Atypical Lymphocytes Toxic Granulation Platelet Estimate Schistocytes Puncture Site ABG pH ABG pCO2 ABG pO2 ABG PO2/FiO2 Ratio ABG HCO3 ABG O2 Saturation ABG O2 Content ABG Base Excess A-a Gradient Oxyhemoglobin Carboxyhemoglobin Methemoglobin Reduced Hemoglobin Total Hemoglobin O2 Delivery Device O2 Liters/Min Minute Volume Vent Rate Vent Mode FiO2 Tidal Volume PEEP Peak Inspir Pressure Pressure Support Sodium Potassium Chloride Carbon Dioxide Anion Gap BUN Creatinine Estim Creat Clear Calc Estimated GFR Glucose POC Capillary Glucose 127 H 137 H Calcium Phosphorus Magnesium Total Bilirubin AST ALT Alkaline Phosphatase C-Reactive Protein Total Protein Albumin Triglycerides Nasal MRSA (PCR) M. pneumoniae (PCR) Pending Blood Type Antibody Screen 08/17/25 08/17/25 08/17/25 21:38 23:28 23:59 WBC RBC Hgb Hct MCV MCH MCHC RDW Plt Count MPV Immature Gran % (Auto) Neut % (Auto) Lymph % (Auto) [place] % (Auto) Eos % (Auto) Baso % (Auto) Lymph # (Auto) [place] # (Auto) Eos # (Auto) Baso # (Auto) Abs Immat Gran (auto) Absolute Neuts (auto) Absolute Nucleated RBC Band Neutrophils % Nucleated RBC % Atypical Lymphocytes Toxic Granulation Platelet Estimate Schistocytes Puncture Site Right radial ABG pH 7.367 ABG pCO2 37.7 ABG pO2 80.3 ABG PO2/FiO2 Ratio 1.61 ABG HCO3 21.2 L ABG O2 Saturation 95.6 ABG O2 Content 19.6 ABG Base Excess -3.6 A-a Gradient 233.8 Oxyhemoglobin 94.6 Carboxyhemoglobin 1.1 Methemoglobin 0.2 Reduced Hemoglobin 4.1 Total Hemoglobin 14.7 O2 Delivery Device Ventilator O2 Liters/Min Not Reportable Minute Volume Not Reportable Vent Rate 18 Vent Mode Cmv FiO2 50 Tidal Volume 400 PEEP 5 Peak Inspir Pressure Not Reportable Pressure Support Not Reportable Sodium Potassium Chloride Carbon Dioxide Anion Gap BUN Creatinine Estim Creat Clear Calc Estimated GFR Glucose POC Capillary Glucose 156 H Calcium Phosphorus Magnesium Total Bilirubin AST ALT Alkaline Phosphatase C-Reactive Protein Total Protein Albumin Triglycerides Nasal MRSA (PCR) Not detected M. pneumoniae (PCR) Blood Type Antibody Screen 08/18/25 08/18/25 04:15 05:07 WBC 19.4 H RBC 4.12 L Hgb 13.4 L Hct 41.5 L MCV 100.7 H MCH 32.5 MCHC 32.3 RDW 14.1 Plt Count 370 D MPV 8.5 Immature Gran % (Auto) 5.0 H Neut % (Auto) 81.1 H Lymph % (Auto) 6.2 L [place] % (Auto) 6.6 Eos % (Auto) 0.2 Baso % (Auto) 0.9 Lymph # (Auto) 1.21 [place] # (Auto) 1.3 H Eos # (Auto) 0.0 Baso # (Auto) 0.2 H Abs Immat Gran (auto) 0.98 H Absolute Neuts (auto) 15.7 H Absolute Nucleated RBC 0.000 Band Neutrophils % Not Reportable Nucleated RBC % 0.0 Atypical Lymphocytes Present Toxic Granulation Present Platelet Estimate Adequate Schistocytes None seen Puncture Site Right radial ABG pH 7.382 ABG pCO2 39.9 ABG pO2 100.3 H ABG PO2/FiO2 Ratio 2.01 ABG HCO3 23.2 ABG O2 Saturation 97.5 ABG O2 Content 21.0 ABG Base Excess -1.7 A-a Gradient 211.3 Oxyhemoglobin 96.7 Carboxyhemoglobin 1.2 Methemoglobin 0.1 Reduced Hemoglobin 2.0 Total Hemoglobin 15.4 O2 Delivery Device Ventilator O2 Liters/Min Not Reportable Minute Volume Not Reportable Vent Rate 18 Vent Mode Cmv FiO2 50 Tidal Volume 400 PEEP 5 Peak Inspir Pressure Not Reportable Pressure Support Not Reportable Sodium 130 L Potassium 5.0 Chloride 103 Carbon Dioxide 25 Anion Gap 2 L BUN 13 D Creatinine 1.13 Estim Creat Clear Calc 63 Estimated GFR > 60 Glucose 111 H POC Capillary Glucose Calcium 7.8 L Phosphorus 6.2 H Magnesium 1.7 Total Bilirubin 1.0 AST 31 ALT 12 Alkaline Phosphatase 77 C-Reactive Protein 15.3 H Total Protein 5.4 L Albumin 2.5 L Triglycerides 169 H Nasal MRSA (PCR) M. pneumoniae (PCR) Blood Type O Negative Antibody Screen Negative Microbiology 08/13/25 19:47 Blood Blood Culture - Preliminary 08/13/25 19:57 Blood Blood Culture - Preliminary 08/14/25 13:41 Urine - Urine Legionella pneumophila Serogrp 1 Ag - Final 08/14/25 07:49 Sputum Sputum White Blood Cells - Final 08/14/25 07:49 Sputum Sputum Epithelial Cells - Final 08/14/25 07:49 Sputum Gram Stain Sputum Result 1 - Final 08/14/25 07:49 Sputum Gram Stain Sputum Result 2 - Final 08/14/25 07:49 Sputum Gram Stain Sputum Result 3 - Final 08/14/25 07:49 Sputum Gram Stain Sputum Result 4 - Final 08/14/25 07:49 Sputum Gram Stain Evaluation - Final 08/14/25 07:49 Sputum Sputum Culture - Final Post-procedural complaints: none Patient Feedback: Patient satisfied with anesthetic care.
[2025-08-18] MEDS: LACTATED RINGERS 1,000 ML 999 ML IV CONT (08:15)
[2025-08-18] MEDS: MINERAL OIL/WHITE PETROLATUM OINTMENT 1 APPLIC EACH EYE ×2 (08:16→22:00)
[2025-08-18] MEDS: MAGNESIUM SULF 2 GM/WATER 50ML 2 GM/50 ML BAG IVPB (08:16)
[2025-08-18] MEDS: ENOXAPARIN 40 MG/0.4 ML SYRINGE SUB-Q (08:16)
[2025-08-18] MEDS: FAMOTIDINE 20 MG/2 ML VIAL IV PUSH ×2 (08:16→22:00)
--- NOTE | 2025-08-18 08:21 | WPDCNINT ---
Assessment and Plan Assessment and plan (1) Acute respiratory failure: Code(s): J96.00 - Acute respiratory failure, unspecified whether with hypoxia or hypercapnia Status: Acute Assessment and Plan: Acute respiratory failure likely related to anesthesia and surgery for small bowel perforation on 08/18 -patient currently on CMV mode of ventilation, peep of 5, 50% FiO2, will wean FiO2 to maintain O2 sats > 92% -continue DuoNebs -08/18: Discussed with Dr. Anderson, patient is going for a washout on 08/19, will keep him intubated and on mechanical ventilation today -sedated with fentanyl and Versed infusion, maintain RASS of 0 to -2 -Daily SBT and SAT (2) Bowel perforation: Code(s): K63.1 - Perforation of intestine (nontraumatic) Status: Acute Assessment and Plan: 08/18: Exploratory laparotomy, small-bowel perforation, adhesiolysis, removal of pigtail catheter drain. 08/17: Patient's pigtail drain had entry contents, small-bowel follow-through with water-soluble contrast was consistent with small-bowel obstruction -discussed with surgery, patient did have a perforation of the jejunum also had enteric contents in the peritoneal cavity -continue Zosyn -will add micafungin -patient will be going for a washout to the OR on 08/19 per surgery -will hold TPN for now (3) Obstruction of small intestine after surgical procedure: Code(s): K91.30 - Postprocedural intestinal obstruction, unspecified as to partial versus complete Status: Acute Assessment and Plan: As above (4) Intra-abdominal abscess: Code(s): K65.1 - Peritoneal abscess Status: Acute Assessment and Plan: 08/16/2025: Status post percutaneous drainage by Interventional Radiology for pelvic fluid collection status post recent sigmoidectomy (CT-guided right transgluteal abscess drainage catheter placement) (5) Protein-calorie malnutrition, severe: Code(s): E43 - Unspecified severe protein-calorie malnutrition Status: Acute Assessment and Plan: Patient has been on TPN which currently is on hold postoperatively. (6) Status post colon resection: Code(s): Z90.49 - Acquired absence of other specified parts of digestive tract Status: Acute Assessment and Plan: 08/10/2025: Sigmoidectomy for recurring diverticulitis (7) History of DVT (deep vein thrombosis): Code(s): Z86.718 - Personal history of other venous thrombosis and embolism Status: Acute Assessment and Plan: Patient has been on Xarelto as outpatient which is currently on hold -continue prophylactic Lovenox per surgery (8) Bronchiectasis: Qualifiers: Bronchiectasis type: uncomplicated Qualified Code(s): J47.9 - Bronchiectasis, uncomplicated Code(s): J47.9 - Bronchiectasis, uncomplicated Status: Chronic Assessment and Plan: In March 2025 but had an abdominal chest x-ray and bronchiectasis on the chest CT. He followed up with Dr. Disla, the polisher and sander, who did an extensive workup along with a 6 minute walk study which she passed. The polisher and sander did find past CT scan that showed bronchiectatic changes. Patient was cleared for surgery. Plan DVT prophylaxis: Lovenox SQ Stress ulcer prophylaxis: Famotidine Nutrition: NPO Code Status: Full code Critical Care Time Spent: 51 minutes Due to a high probability of clinically significant, life threatening deterioration, the patient required my highest level of preparedness to intervene emergently and I personally spent this critical care time directly and personally managing the patient. This critical care time included obtaining a history; examining the patient; pulse oximetry; ordering and review of studies; arranging urgent treatment with development of a management plan; evaluation of patient's response to treatment; frequent reassessment; and discussions with other providers. It was exclusive of separately billable procedures and treating other patients and teaching time. Please see Assessment and Plan section and the rest of the note for further information on patient assessment and treatment This dictation may have been done utilizing a voice recognition system. Attempts have been made to correct errors. However, there may be uncorrected grammatical, spelling, and recognitions errors present. Transportation Solutions Manager Consult Note Consult date: 08/18/25 Reason for consult: Perforation status post exploratory laparotomy, repair of small-bowel perforation, adhesiolysis, removal of pigtail catheter drain HPI: Casey Kearns is a 60 year old male with past medical history of bronchiectasis, history of pulmonary embolism, history of DVT on Xarelto, essential hypertension, recurrent diverticulitis requiring several inpatient admissions presented the [facility] 08/10/2025 for an elective sigmoidectomy to avoid further episodes of diverticulitis. Patient was initially scheduled for sigmoidectomy in March 2025 but had an abdominal chest x-ray and bronchiectasis on the chest CT. He followed up with Dr. Disla, the polisher and sander, who did an extensive workup along with a 6 minute walk study which she passed. The polisher and sander did find past CT scan that showed bronchiectatic changes. Patient was cleared for surgery. Patient also has a history of hypospadias with meatal stenosis creating difficulty passing a Anand catheter. Urology was consulted, patient had urethral meatal dilatation, cystoscopy with bilateral internal ureteral stent insertion on 08/10/2025. 08/10/2025: Patient underwent a hand assisted laparoscopic sigmoidectomy with anastomosis and a drain placement Pain was being well controlled during the postop course, patient was on clear liquid diet and TPN. On 08/17 patient's pigtail catheter drainage look more like enteric content, small-bowel follow-through showed findings compatible with obstruction. 08/17/2025: Underwent an exploratory laparotomy, small-bowel perforation, adhesiolysis, removal of pigtail catheter drain. Patient was transferred to the ICU on mechanical ventilator. 08/18/2025: Patient seen and examined the ICU this morning, remains intubated on CMV mode of ventilation, peep of 5, 50% FiO2. Sedated with fentanyl and Versed infusion. Patient opens his eyes, is awake, follows simple commands in all extremities and nods to questions. Patient did receive a 1 L fluid bolus overnight, blood pressures are borderline, will given additional IV fluid bolus this morning. Patient is afebrile, urine output has been adequate. Review of Systems Review of Systems: ROS unobtainable: Yes unobtainable due to endotracheal tube and unobtainable due to medical condition [facility] Past Medical History Medical History (Updated 08/18/25 @ 09:36 by Agustín Mary MD) History of open sigmoidectomy Hand access laparoscopic sigmoidectomy with stapled 29 EEA anastomosis 08/10/2025 Dr. Anderson Bronchiectasis History of pulmonary embolism History of pulmonary embolus (PE) History of DVT (deep vein thrombosis) Hypertension Surgical History Surgical History Hx of tonsillectomy Social History Social History Smoking status: Never smoker Alcohol intake: current Drinks per week: 21 Alcohol use details: BEER Substance use: never Substance use type: does not use Lack of Transportation: No Lack of Food: Never True Current Housing: I Have Housing Concerned About Future Housing: No Difficulty Paying Gas/Electric Bills: No Difficulty Paying for Meds: No Currently Unemployed: No Education: High School Diploma/GED Difficulty w/ Childcare or Family Care: No Living arrangements: with family Additional living arrangements comments: Spiritual care concerns: No Meds Home Medications and Allergies Home Medications ?Medication ?Instructions ?Recorded ?Confirmed ?Type losartan 100 1 tablet PO DAILY 02/01/25 08/10/25 History mg-hydrochlorothiazide 12.5 mg tablet tramadol 50 mg tablet 50 mg PO BID PRN pain 02/01/25 08/01/25 History umeclidinium 62.5 mcg-vilanterol 1 inh inhalation Q24H 04/07/25 08/01/25 Rx 25 mcg/actuation powdr for bronchiectasis 3 months #180 ea inhalation (Anoro Ellipta) albuterol sulfate 90 mcg/actuation 2 inh inhalation Q6H PRN shortness 04/26/25 08/01/25 Rx aerosol inhaler (Ventolin HFA) of breath 1 month #8.5 grams ciprofloxacin HCl 500 mg tablet 500 mg PO .COMPLEX #1 tablet 08/01/25 08/10/25 Rx metronidazole 500 mg tablet 500 mg PO .COMPLEX #3 tabs 08/01/25 08/10/25 Rx rivaroxaban 20 mg tablet (Xarelto) 20 mg PO DAILY 08/01/25 08/10/25 History Allergies Allergy/AdvReac Type Severity Reaction Status Date / Time No Known Allergies Allergy Verified 08/17/25 15:50 Vital Signs Vital Signs - 24 hr 08/17/25 12:00 08/17/25 15:30 08/17/25 19:35 Temperature 98.7 F 98.4 F Pulse Rate 97 102 H 121 H Respiratory Rate 18 18 Blood Pressure 148/90 H 140/80 Pulse Oximetry 96 95 96 Oxygen Delivery Room Air Mechanical Ventilation Fraction of Inspired Oxygen 50 08/17/25 19:45 08/17/25 19:51 08/17/25 20:00 Temperature 98.3 F Pulse Rate 109 H 109 H 116 H Respiratory Rate 14 14 14 Blood Pressure 161/100 H Pulse Oximetry 98 Oxygen Delivery Fraction of Inspired Oxygen 08/17/25 20:00 08/17/25 20:07 08/17/25 20:07 Temperature Pulse Rate 116 H 116 H Respiratory Rate 14 14 Blood Pressure Pulse Oximetry 95 Oxygen Delivery Mechanical Ventilation Fraction of Inspired Oxygen 50 08/17/25 20:31 08/17/25 20:31 08/17/25 20:45 Temperature Pulse Rate 136 H 135 H 131 H Respiratory Rate 25 H 27 H 25 H Blood Pressure 133/87 Pulse Oximetry 93 Oxygen Delivery Fraction of Inspired Oxygen 08/17/25 20:50 08/17/25 21:00 08/17/25 21:00 Temperature Pulse Rate 127 H 124 H 102 H Respiratory Rate 26 H 20 18 Blood Pressure 132/91 H Pulse Oximetry 94 Oxygen Delivery Fraction of Inspired Oxygen 08/17/25 21:15 08/17/25 22:00 08/17/25 22:00 Temperature 98.3 F Pulse Rate 122 H 102 H 102 H Respiratory Rate 19 18 18 Blood Pressure 142/89 H 97/77 L Pulse Oximetry 95 97 Oxygen Delivery Fraction of Inspired Oxygen 08/17/25 22:00 08/17/25 22:16 08/17/25 23:00 Temperature Pulse Rate 106 H 99 Respiratory Rate 18 Blood Pressure 98/73 L Pulse Oximetry 96 Oxygen Delivery Fraction of Inspired Oxygen 50 08/17/25 23:00 08/17/25 23:26 08/17/25 23:40 Temperature Pulse Rate 99 111 H 97 Respiratory Rate 18 18 Blood Pressure Pulse Oximetry 97 Oxygen Delivery Mechanical Ventilation Fraction of Inspired Oxygen 50 08/17/25 23:51 08/17/25 23:52 08/18/25 00:00 Temperature 98.4 F Pulse Rate 98 Respiratory Rate 18 Blood Pressure 101/75 Pulse Oximetry 96 97 Oxygen Delivery Mechanical Ventilation Fraction of Inspired Oxygen 50 50 08/18/25 00:00 08/18/25 00:00 08/18/25 00:00 Temperature Pulse Rate 98 98 98 Respiratory Rate 18 18 Blood Pressure Pulse Oximetry Oxygen Delivery Fraction of Inspired Oxygen 08/18/25 01:00 08/18/25 01:00 08/18/25 02:00 Temperature Pulse Rate 92 92 92 Respiratory Rate 18 18 Blood Pressure 82/66 L Pulse Oximetry 97 Oxygen Delivery Fraction of Inspired Oxygen 08/18/25 02:00 08/18/25 02:00 08/18/25 02:00 Temperature 98.4 F Pulse Rate 92 92 92 Respiratory Rate 18 18 18 Blood Pressure 102/80 Pulse Oximetry 97 Oxygen Delivery Fraction of Inspired Oxygen 08/18/25 02:11 08/18/25 03:00 08/18/25 04:00 Temperature 98.9 F Pulse Rate 95 91 93 Respiratory Rate 18 18 Blood Pressure 87/70 L 83/64 L Pulse Oximetry 97 97 97 Oxygen Delivery Mechanical Ventilation Fraction of Inspired Oxygen 50 08/18/25 04:00 08/18/25 04:00 08/18/25 04:00 Temperature Pulse Rate 93 92 93 Respiratory Rate 18 18 Blood Pressure Pulse Oximetry Oxygen Delivery Fraction of Inspired Oxygen 08/18/25 04:00 08/18/25 04:00 08/18/25 04:23 Temperature Pulse Rate 97 Respiratory Rate Blood Pressure Pulse Oximetry 97 97 Oxygen Delivery Mechanical Ventilation Mechanical Ventilation Fraction of Inspired Oxygen 50 50 50 08/18/25 05:00 08/18/25 06:00 08/18/25 06:00 Temperature 98.9 F Pulse Rate 92 85 93 Respiratory Rate 18 18 Blood Pressure 83/66 L 88/66 L Pulse Oximetry 97 97 Oxygen Delivery Fraction of Inspired Oxygen 08/18/25 06:00 08/18/25 06:00 08/18/25 07:00 Temperature Pulse Rate 93 93 95 Respiratory Rate 18 18 18 Blood Pressure 97/72 L Pulse Oximetry 97 Oxygen Delivery Fraction of Inspired Oxygen Exam Narrative: General: Intubated, sedated, in no acute distress HEENT:? Pupils equal and reactive, sclera is clear, ETT in place Neck:? Supple Respiratory:? Coarse breath sounds at bases bilaterally, adequate air entry, no wheezing Cardiac:? S1-S2 is normal, regular rate and rhythm Abdomen:? Soft, tender to palpation, nondistended, no bowel sounds were appreciated. Abdominal dressing in place, clean, dry and intact Extremities:? No edema, palpable pedal pulses Neuro:? Patient is intubated on sedation but is awake, nods to questions, follows simple commands in all extremities Skin:? Warm and dry Psych:? Unable to assess at this time Results Labs 08/18/25 05:07 08/18/25 05:07 Labs: Short CBC 08/18/25 Range/Units 05:07 WBC 19.4 H (4.5-10.0) K/mm3 Hgb 13.4 L (14.0-18.0) g/dL Hct 41.5 L (42.0-52.0) % Plt Count 370 D (150-375) k/mm3 BMP 08/18/25 05:07 Sodium 130 L Potassium 5.0 Chloride 103 Carbon Dioxide 25 BUN 13 D Creatinine 1.13 Glucose 111 H Calcium 7.8 L Liver Function 08/18/25 Range/Units 05:07 Total Bilirubin 1.0 (0.2-1.3) mg/dL AST 31 (17-59) U/L ALT 12 (6-50) U/L Alkaline Phosphatase 77 (38-126) U/L Albumin 2.5 L (3.5-5.1) g/dL Quality VTE Prophylaxis VTE prophylaxis: pharmacologic ordered Hospitalist MIPS Advance Care Plan I have confirmed that the patient's Advanced Care Plan is present, code status is documented, or surrogate decision maker is listed in patient medical record.: Yes Medication Reconciliation I have utilized all available resources to obtain, update and review the patients current medications (includes all prescriptions, OTC, herbals, cannabis, and nutritional supplements).: Yes
--- NOTE | 2025-08-18 09:17 | P.PNIM_ITS ---
Progress Note: A&P Assessment and Plan (1) Obstruction of small intestine after surgical procedure: Code(s): K91.30 - Postprocedural intestinal obstruction, unspecified as to partial versus complete Status: Acute Assessment and Plan: -admit CT with intra-abdominal free air (likely postoperative), complex fluid within the pelvis with small amount of hemoperitoneum. Rim enhancing fluid collections are noted and suspicious for early abscess. Multiple dilated loops of small bowel with decompressed small bowel loops in the pelvis. - continue IV Zosyn - continue NGT to LIWS -continue encouraging patient to ambulate in the halls -continue maintenance IVF - daily KUB- 08/17 -persistently dilated small loops without significant change -General surgery remains primary - continue to follow - s/p CT guided drainage of pelvic fluid collection/hematoma with drain placement 08/16/26, cultures pending - PICC line for TPN (2) Sepsis: Code(s): A41.9 - Sepsis, unspecified organism Status: Acute Assessment and Plan: -Meets SIRS criteria: Leukocytosis, Tachycardia, tachypnea -lactic acid: 1.9 -Procalcitonin: 5.5 -suspected source: Intra-abdominal -blood cultures drawn on 08/13 -UA: Not indicative of infection -Urine culture not obtained -Chest CTA: Negative for pulmonary embolism. Bilateral probable pneumonia. Intraabdominal free air unchanged from previous exam -Continue Zosyn (3) Status post colon resection: Code(s): Z90.49 - Acquired absence of other specified parts of digestive tract Status: Acute Assessment and Plan: -Patient underwent hand assisted lap sigmoidectomy with anastomosis on 08/10 due to frequent admissions for diverticulitis. -pain control per surgery. -Entereg per surgery - (4) Bloody stool: Code(s): K92.1 - Melena Status: Acute Assessment and Plan: -Had 1 episode of bright red blood per rectum post first ambulation in the [facility] on 08/12. Patient denies shortness of breath or dizziness. -continue to monitor -No episodes of bloody stool last night/this am (5) History of pulmonary embolism: Code(s): Z86.711 - Personal history of pulmonary embolism Status: Chronic Assessment and Plan: -Patient with history of PE and DVT. On chronic Xarelto at home -continue to hold Xarelto -continue Lovenox (6) Hypertension: Qualifiers: Hypertension type: primary hypertension Qualified Code(s): I10 - Essential (primary) hypertension Code(s): I10 - Essential (primary) hypertension Status: Chronic Assessment and Plan: -BP meds on hold (7) Urethral stricture: Qualifiers: Urethral stricture type: unspecified stricture type Urethral stricture sex-location: male urethra-unspecified Qualified Code(s): N35.919 - Unspecified urethral stricture, male, unspecified site Code(s): N35.919 - Unspecified urethral stricture, male, unspecified site Status: Chronic Assessment and Plan: -Bilateral ureteral stent placement and urethral meatal dilatation on 08/10. -Anand removed on 08/12 -continue to monitor urine output -Urology followed (8) Bronchiectasis: Qualifiers: Bronchiectasis type: uncomplicated Qualified Code(s): J47.9 - Bronchiectasis, uncomplicated Code(s): J47.9 - Bronchiectasis, uncomplicated Status: Chronic Assessment and Plan: -Continue Anoro Ellipta daily, albuterol p.r.n. Plan Diet: NPO DVT prophylaxis: Lovenox Code status: Full Subjective Date/time seen: 08/18/25 09:17 Interval history: Patient was seen during the morning rounds today. Patient is intubated and sedated. Review of Systems Review of Systems: All systems reviewed & are unremarkable except as noted in HPI and below Exam Narrative: General: NAD Eyes: EOMI ENT: neck supple Cardiovascular: Regular rate and rhythm Respiratory: Clear to auscultation, respirations even and unlabored on RA Gastrointestinal: Moderate distension, bowel sounds absent, mild diffuse tenderness, surgical incisions well approximated, surgical drain with dark green output Genitourinary: no suprapubic tenderness Musculoskeletal: No edema Skin: warm, dry, Neuro: Alert. Psych: Mood appropriate Objective Data Vital Signs Vital Signs: Vital Signs - 24 hr 08/17/25 12:00 08/17/25 15:30 08/17/25 19:35 Temperature 37.1 C 36.9 C Pulse Rate 97 102 H 121 H Respiratory Rate 18 18 Blood Pressure 148/90 H 140/80 Pulse Oximetry 96 95 96 Oxygen Delivery Room Air Mechanical Ventilation Fraction of Inspired Oxygen 50 08/17/25 19:45 08/17/25 19:51 08/17/25 20:00 Temperature 36.8 C Pulse Rate 109 H 109 H 116 H Respiratory Rate 14 14 14 Blood Pressure 161/100 H Pulse Oximetry 98 Oxygen Delivery Fraction of Inspired Oxygen 08/17/25 20:00 08/17/25 20:07 08/17/25 20:07 Temperature Pulse Rate 116 H 116 H Respiratory Rate 14 14 Blood Pressure Pulse Oximetry 95 Oxygen Delivery Mechanical Ventilation Fraction of Inspired Oxygen 50 08/17/25 20:31 08/17/25 20:31 08/17/25 20:45 Temperature Pulse Rate 136 H 135 H 131 H Respiratory Rate 25 H 27 H 25 H Blood Pressure 133/87 Pulse Oximetry 93 Oxygen Delivery Fraction of Inspired Oxygen 08/17/25 20:50 08/17/25 21:00 08/17/25 21:00 Temperature Pulse Rate 127 H 124 H 102 H Respiratory Rate 26 H 20 18 Blood Pressure 132/91 H Pulse Oximetry 94 Oxygen Delivery Fraction of Inspired Oxygen 08/17/25 21:15 08/17/25 22:00 08/17/25 22:00 Temperature 36.8 C Pulse Rate 122 H 102 H 102 H Respiratory Rate 19 18 18 Blood Pressure 142/89 H 97/77 L Pulse Oximetry 95 97 Oxygen Delivery Fraction of Inspired Oxygen 08/17/25 22:00 08/17/25 22:16 08/17/25 23:00 Temperature Pulse Rate 106 H 99 Respiratory Rate 18 Blood Pressure 98/73 L Pulse Oximetry 96 Oxygen Delivery Fraction of Inspired Oxygen 50 08/17/25 23:00 08/17/25 23:26 08/17/25 23:40 Temperature Pulse Rate 99 111 H 97 Respiratory Rate 18 18 Blood Pressure Pulse Oximetry 97 Oxygen Delivery Mechanical Ventilation Fraction of Inspired Oxygen 50 08/17/25 23:51 08/17/25 23:52 08/18/25 00:00 Temperature 36.9 C Pulse Rate 98 Respiratory Rate 18 Blood Pressure 101/75 Pulse Oximetry 96 97 Oxygen Delivery Mechanical Ventilation Fraction of Inspired Oxygen 50 50 08/18/25 00:00 08/18/25 00:00 08/18/25 00:00 Temperature Pulse Rate 98 98 98 Respiratory Rate 18 18 Blood Pressure Pulse Oximetry Oxygen Delivery Fraction of Inspired Oxygen 08/18/25 01:00 08/18/25 01:00 08/18/25 02:00 Temperature Pulse Rate 92 92 92 Respiratory Rate 18 18 Blood Pressure 82/66 L Pulse Oximetry 97 Oxygen Delivery Fraction of Inspired Oxygen 08/18/25 02:00 08/18/25 02:00 08/18/25 02:00 Temperature 36.9 C Pulse Rate 92 92 92 Respiratory Rate 18 18 18 Blood Pressure 102/80 Pulse Oximetry 97 Oxygen Delivery Fraction of Inspired Oxygen 08/18/25 02:11 08/18/25 03:00 08/18/25 04:00 Temperature 37.2 C Pulse Rate 95 91 93 Respiratory Rate 18 18 Blood Pressure 87/70 L 83/64 L Pulse Oximetry 97 97 97 Oxygen Delivery Mechanical Ventilation Fraction of Inspired Oxygen 50 08/18/25 04:00 08/18/25 04:00 08/18/25 04:00 Temperature Pulse Rate 93 92 93 Respiratory Rate 18 18 Blood Pressure Pulse Oximetry Oxygen Delivery Fraction of Inspired Oxygen 08/18/25 04:00 08/18/25 04:00 08/18/25 04:23 Temperature Pulse Rate 97 Respiratory Rate Blood Pressure Pulse Oximetry 97 97 Oxygen Delivery Mechanical Ventilation Mechanical Ventilation Fraction of Inspired Oxygen 50 50 50 08/18/25 05:00 08/18/25 06:00 08/18/25 06:00 Temperature 37.2 C Pulse Rate 92 85 93 Respiratory Rate 18 18 Blood Pressure 83/66 L 88/66 L Pulse Oximetry 97 97 Oxygen Delivery Fraction of Inspired Oxygen 08/18/25 06:00 08/18/25 06:00 08/18/25 07:00 Temperature Pulse Rate 93 93 95 Respiratory Rate 18 18 18 Blood Pressure 97/72 L Pulse Oximetry 97 Oxygen Delivery Fraction of Inspired Oxygen 08/18/25 08:00 08/18/25 08:00 08/18/25 08:14 Temperature Pulse Rate 94 94 97 Respiratory Rate 18 18 20 Blood Pressure Pulse Oximetry Oxygen Delivery Fraction of Inspired Oxygen 08/18/25 08:14 Temperature Pulse Rate 97 Respiratory Rate 20 Blood Pressure Pulse Oximetry Oxygen Delivery Fraction of Inspired Oxygen Intake/Output Intake/Output: Intake & Output 08/15/25 08/16/25 08/17/25 08/18/25 23:59 23:59 23:59 23:59 Intake Total 2200.0 3474.7 4742.0 224.8 Output Total 1800 2125 2500 520 Balance 400.0 1349.7 2242.0 -295.2 Meds/Results Medications: Active Medications Generic Name Dose Route Start Last Admin Trade Name Freq PRN Reason Stop Dose Admin Albuterol 2 puff 08/10/25 13:04 Albuterol Sulfate (*Sp) Aerosol 1 Puff INHALATION Q6H PRN Shortness Of Breath Dextrose 12.5 gm 08/15/25 07:56 Dextrose 50% 25 Gm/50 Ml Syringe IV PUSH PRN PRN Hypoglycemia Protocol Enoxaparin Sodium 40 mg 08/11/25 09:00 08/18/25 08:16 Enoxaparin 40 Mg/0.4 Ml Syringe SUB-Q 40 mg DAILY ANNETTE Administration Famotidine 20 mg 08/10/25 21:00 08/18/25 08:16 Famotidine 20 Mg/2 Ml Vial IV PUSH 20 mg Q12HR ANNETTE Administration Fentanyl Citrate 25 mcg 08/17/25 16:58 Fentanyl Citrate Inj (*Crx) 100 Mcg/2 Ml Vial IV PUSH Q2M PRN Pain Glucagon 1 mg 08/15/25 07:56 Glucagon For Inj 1 Mg Vial IM PRN PRN Hypoglycemia Protocol Glucose 15 gm 08/15/25 07:56 Glucose Oral Gel 15 Gm Of Glucse In 37.5 Gm Tube PO PRN PRN Hypoglycemia Protocol Hydrochlorothiazide 12.5 mg 08/11/25 09:00 08/12/25 10:31 Hydrochlorothiazide 12.5 Mg Capsule PO 12.5 mg On Hold: 08/12/25 11:48 QAM ANNETTE Administration Ibuprofen 800 mg in 200 mls @ 400 mls/hr 08/10/25 13:04 Caldolor 800 Mg/200 Ml IVPB Q6H PRN Breakthrough Pain Rated 1-3 or NPO Piperacillin Sod/Tazobactam 50 mls @ 100 mls/hr 08/12/25 12:00 08/18/25 05:50 Sod 3.375 gm/ Sodium Chloride IVPB Infused Q6H ANNETTE Infusion Dextrose 1,000 mls @ 50 mls/hr 08/15/25 07:56 Dextrose 10% IV CONT .Q20H PRN if PN is interrupted Dextrose 1,000 mls @ 100 mls/hr 08/15/25 07:56 Dextrose 5% 1,000 Ml IVPB PRN PRN Hypoglycemia Protocol Multivitamins 1.25 ml/ 1,002.5 mls @ 70 mls/hr 08/15/25 12:00 08/17/25 23:05 Multivitamins 1.25 ml/ Amino IV CONT Not Given Acids/Electrolytes/Dextrose .[id number] ANNETTE On Hold: 08/17/25 21:12 Protocol Fat Emulsion Intravenous 250 mls @ 20.833 mls/hr 08/15/25 12:00 08/17/25 11:50 Lipids 20% IVPB 20 mls/hr On Hold: 08/17/25 21:13 Q24H ANNETTE Administration Fentanyl Citrate 2,500 mcg in 250 mls @ 5 mls/hr 08/17/25 19:40 08/18/25 08:14 Fentanyl 2,500 Mcg/Ns 250 Ml IV CONT 50 mcg/hr .Q50H ANNETTE 5 mls/hr Protocol Titration 50 MCG/HR Midazolam HCl 100 mg in 100 mls @ 0 mls/hr 08/17/25 19:40 08/18/25 08:14 Versed 100 Mg/Ns 100 Ml IV CONT 0 mg/hr .Q0M ANNETTE 0 mls/hr Protocol Titration 0 MG/HR Albumin Human 100 mls @ 60 mls/hr 08/18/25 12:00 Albutein IVPB 08/19/25 07:39 Q6HR ANNETTE Micafungin Sodium 100 mg/ 100 mls @ 100 mls/hr 08/18/25 09:20 Sodium Chloride IVPB DAILY ANNETTE Insulin Aspart 1 - 3 units 08/15/25 21:00 08/17/25 20:35 Insulin Aspart (*Bkc) 100 Units/Ml SUB-Q Not Given On Hold: 08/18/25 07:35 HS ANNETTE Protocol Insulin Aspart 3 - 6 units 08/18/25 07:37 08/18/25 08:16 Insulin Aspart (*Bkc) 100 Units/Ml SUB-Q Not Given Q6H [facility] Protocol Losartan Potassium 100 mg 08/11/25 09:00 08/12/25 10:30 Losartan Potassium 100 Mg Tablet PO 100 mg On Hold: 08/12/25 11:48 DAILY ANNETTE Administration Morphine Sulfate 1 mg 08/13/25 18:43 08/17/25 11:48 Morphine Sulfate (*Crx) 4 Mg/Ml Inj IV PUSH 1 mg On Hold: 08/18/25 07:36 Q2H PRN Administration Breakthrough Pain Rated 4-6 or NPO Morphine Sulfate 2 mg 08/13/25 18:43 08/17/25 14:45 Morphine Sulfate (*Crx) 4 Mg/Ml Inj IV PUSH 2 mg On Hold: 08/18/25 07:36 Q2H PRN Administration Breakthrough Pain Rated 7-10 or NPO Multi-Ingred Cream/Lotion/Oil/Oint 1 applic 08/17/25 21:00 08/18/25 08:16 Mineral Oil/White Petrolatum Ointment EACH EYE 1 applic Q12HR ANNETTE Administration Naloxone HCl 0.1 mg 08/10/25 13:04 Naloxone Hcl 0.4 Mg/Ml Vial IV PUSH Q2M PRN Opiate Reversal Ondansetron HCl 4 mg 08/10/25 13:04 Ondansetron Inj 4 Mg/2 Ml Vial IV PUSH Q4H PRN Nausea And Vomiting Oxycodone/Acetaminophen 1 tablet 08/10/25 13:04 08/12/25 10:33 Oxycodone/Acetaminophen (*Crx) 5-325 Mg Tablet PO 1 tablet On Hold: 08/12/25 11:49 Q4H PRN Administration Pain Rated 4-6 Oxycodone/Acetaminophen 1 tab 08/10/25 13:04 08/11/25 15:28 Oxycodone/Acetaminophen (*Crx) 10-325 Mg Tablet PO 1 tab On Hold: 08/12/25 11:49 Q6H PRN Administration Pain Rated 7-10 Sodium Chloride 10 ml 08/15/25 14:00 08/18/25 05:20 Central Line Flush IV PUSH 10 ml Q8HR ANNETTE Administration Sodium Chloride 10 ml 08/15/25 11:41 Central Line Flush IV PUSH PRN PRN with TPN bag changes Sodium Chloride 20 ml 08/15/25 11:41 Central Line Flush IV PUSH PRN PRN after blood draws Tramadol HCl 50 mg 08/10/25 13:04 Tramadol Hcl (*Crx) 50 Mg Tablet PO On Hold: 08/12/25 11:49 Q4H PRN Pain Rated 1-3 Trazodone HCl 50 mg 08/10/25 13:04 Trazodone Hcl 50 Mg Tablet PO On Hold: 08/12/25 11:49 HS PRN Insomnia Umeclidinium/Vilanterol 1 puff 08/10/25 14:00 08/17/25 07:26 Umeclidinium/Vilanterol 62.5-25 Mcg Ellipta INHALATION 1 puff DAILY ANNETTE Administration Radiology Results: ITS Impressions Chest CTA 08/13/25 16:42 IMPRESSION: 1. Negative for pulmonary embolism. Bilateral probable pneumonia. 2. Intra-abdominal free air possibly postoperative in nature relatively unchanged compared to the previous exam Abdomen/Pelvis CT 08/15/25 08:38 IMPRESSION: 1. Ileus and/or developing small bowel obstruction. 2. Free intraperitoneal air favoring recent postoperative change. 3. Peritonitis, with scattered ascites and interloop fluid. 4. Worrisome for cystitis, unless recent catheter manipulation. 5. Significant bibasilar atelectasis and/or airspace disease, with small left effusion. Catheter Placement CT 08/16/25 14:04 IMPRESSION: 1. Successful CT-guided right transgluteal abscess drainage. 2. 60 mL fluid was sent for aerobic and anaerobic cultures. 3. The catheter will be managed by Dr. Anderson. Small Bowel X-Ray 08/17/25 13:42 Impression: 1: Incomplete small bowel study with delayed passage of contrast into the distal small bowel. Study terminated due to complications with patient. Proximal small bowel dilated with multiple dilated distal loops of small bowel. Findings compatible with obstruction. Chest X-Ray 08/18/25 08:14 Impression: No significant change. Abdomen X-Ray 08/18/25 08:28 Impression: 1. Ileus versus early obstruction. The findings appear relatively unchanged Labs Labs: Laboratory Results - last 24 hr 08/17/25 08/17/25 08/17/25 11:48 19:56 21:38 WBC RBC Hgb Hct MCV MCH MCHC RDW Plt Count MPV Immature Gran % (Auto) Neut % (Auto) Lymph % (Auto) [place] % (Auto) Eos % (Auto) Baso % (Auto) Lymph # (Auto) [place] # (Auto) Eos # (Auto) Baso # (Auto) Abs Immat Gran (auto) Absolute Neuts (auto) Absolute Nucleated RBC Band Neutrophils % Nucleated RBC % Atypical Lymphocytes Toxic Granulation Platelet Estimate Schistocytes Puncture Site Right radial ABG pH 7.367 ABG pCO2 37.7 ABG pO2 80.3 ABG PO2/FiO2 Ratio 1.61 ABG HCO3 21.2 L ABG O2 Saturation 95.6 ABG O2 Content 19.6 ABG Base Excess -3.6 A-a Gradient 233.8 Oxyhemoglobin 94.6 Carboxyhemoglobin 1.1 Methemoglobin 0.2 Reduced Hemoglobin 4.1 Total Hemoglobin 14.7 O2 Delivery Device Ventilator O2 Liters/Min Not Reportable Minute Volume Not Reportable Vent Rate 18 Vent Mode Cmv FiO2 50 Tidal Volume 400 PEEP 5 Peak Inspir Pressure Not Reportable Pressure Support Not Reportable Sodium Potassium Chloride Carbon Dioxide Anion Gap BUN Creatinine Estim Creat Clear Calc Estimated GFR Glucose POC Capillary Glucose 127 H 137 H Calcium Phosphorus Magnesium Total Bilirubin AST ALT Alkaline Phosphatase C-Reactive Protein Total Protein Albumin Triglycerides Nasal MRSA (PCR) Blood Type Antibody Screen 08/17/25 08/17/25 08/18/25 23:28 23:59 04:15 WBC RBC Hgb Hct MCV MCH MCHC RDW Plt Count MPV Immature Gran % (Auto) Neut % (Auto) Lymph % (Auto) [place] % (Auto) Eos % (Auto) Baso % (Auto) Lymph # (Auto) [place] # (Auto) Eos # (Auto) Baso # (Auto) Abs Immat Gran (auto) Absolute Neuts (auto) Absolute Nucleated RBC Band Neutrophils % Nucleated RBC % Atypical Lymphocytes Toxic Granulation Platelet Estimate Schistocytes Puncture Site Right radial ABG pH 7.382 ABG pCO2 39.9 ABG pO2 100.3 H ABG PO2/FiO2 Ratio 2.01 ABG HCO3 23.2 ABG O2 Saturation 97.5 ABG O2 Content 21.0 ABG Base Excess -1.7 A-a Gradient 211.3 Oxyhemoglobin 96.7 Carboxyhemoglobin 1.2 Methemoglobin 0.1 Reduced Hemoglobin 2.0 Total Hemoglobin 15.4 O2 Delivery Device Ventilator O2 Liters/Min Not Reportable Minute Volume Not Reportable Vent Rate 18 Vent Mode Cmv FiO2 50 Tidal Volume 400 PEEP 5 Peak Inspir Pressure Not Reportable Pressure Support Not Reportable Sodium Potassium Chloride Carbon Dioxide Anion Gap BUN Creatinine Estim Creat Clear Calc Estimated GFR Glucose POC Capillary Glucose 156 H Calcium Phosphorus Magnesium Total Bilirubin AST ALT Alkaline Phosphatase C-Reactive Protein Total Protein Albumin Triglycerides Nasal MRSA (PCR) Not detected Blood Type Antibody Screen 08/18/25 08/18/25 05:07 08:10 WBC 19.4 H RBC 4.12 L Hgb 13.4 L Hct 41.5 L MCV 100.7 H MCH 32.5 MCHC 32.3 RDW 14.1 Plt Count 370 D MPV 8.5 Immature Gran % (Auto) 5.0 H Neut % (Auto) 81.1 H Lymph % (Auto) 6.2 L [place] % (Auto) 6.6 Eos % (Auto) 0.2 Baso % (Auto) 0.9 Lymph # (Auto) 1.21 [place] # (Auto) 1.3 H Eos # (Auto) 0.0 Baso # (Auto) 0.2 H Abs Immat Gran (auto) 0.98 H Absolute Neuts (auto) 15.7 H Absolute Nucleated RBC 0.000 Band Neutrophils % Not Reportable Nucleated RBC % 0.0 Atypical Lymphocytes Present Toxic Granulation Present Platelet Estimate Adequate Schistocytes None seen Puncture Site ABG pH ABG pCO2 ABG pO2 ABG PO2/FiO2 Ratio ABG HCO3 ABG O2 Saturation ABG O2 Content ABG Base Excess A-a Gradient Oxyhemoglobin Carboxyhemoglobin Methemoglobin Reduced Hemoglobin Total Hemoglobin O2 Delivery Device O2 Liters/Min Minute Volume Vent Rate Vent Mode FiO2 Tidal Volume PEEP Peak Inspir Pressure Pressure Support Sodium 130 L Potassium 5.0 Chloride 103 Carbon Dioxide 25 Anion Gap 2 L BUN 13 D Creatinine 1.13 Estim Creat Clear Calc 63 Estimated GFR > 60 Glucose 111 H POC Capillary Glucose 123 H Calcium 7.8 L Phosphorus 6.2 H Magnesium 1.7 Total Bilirubin 1.0 AST 31 ALT 12 Alkaline Phosphatase 77 C-Reactive Protein 15.3 H Total Protein 5.4 L Albumin 2.5 L Triglycerides 169 H Nasal MRSA (PCR) Blood Type O Negative Antibody Screen Negative Quality VTE Prophylaxis VTE prophylaxis: pharmacologic ordered
[2025-08-18] MEDS: MICAFUNGIN SODIUM 100 MG in SODIUM CHLORIDE 0.9% IV 100 ML IVPB (10:09)
--- NOTE | 2025-08-18 12:29 | PM.PNGS ---
Progress Note: A&P Assessment and Plan (1) Bowel perforation: Code(s): K63.1 - Perforation of intestine (nontraumatic) Status: Acute Assessment and Plan: doing well overall, continue broad-spectrum antibiotics and antifungal, vitals stable and not on any pressors, plan for second-look laparotomy tomorrow morning Subjective Subjective Date/Time Seen: 08/18/25 12:29 Interval history: events noted, intubated and sedated in the ICU, does follow commands Review of Systems Review of Systems: ROS unobtainable: Yes unobtainable due to endotracheal tube Exam Const: General: cooperative, no acute distress and ill appearing Resp: Auscultation: clear to auscultation bilaterally Cardio: Rate: regular rate Rhythm: regular rhythm GI: Inspection: normal to inspection, distended and incision GI Palp: Yes abdominal tenderness and Yes Soft to palpation Other: MERON with moderate serosanguineous fluid Objective Data Vital Signs Vital Signs: Vital Signs - 24 hr 08/17/25 15:30 08/17/25 19:35 08/17/25 19:45 Temperature 36.9 C Pulse Rate 102 H 121 H 109 H Respiratory Rate 18 14 Blood Pressure 140/80 Pulse Oximetry 95 96 Oxygen Delivery Room Air Mechanical Ventilation Fraction of Inspired Oxygen 50 08/17/25 19:51 08/17/25 20:00 08/17/25 20:00 Temperature 36.8 C Pulse Rate 109 H 116 H Respiratory Rate 14 14 Blood Pressure 161/100 H Pulse Oximetry 98 95 Oxygen Delivery Mechanical Ventilation Fraction of Inspired Oxygen 50 08/17/25 20:07 08/17/25 20:07 08/17/25 20:31 Temperature Pulse Rate 116 H 116 H 136 H Respiratory Rate 14 14 25 H Blood Pressure Pulse Oximetry Oxygen Delivery Fraction of Inspired Oxygen 08/17/25 20:31 08/17/25 20:45 08/17/25 20:50 Temperature Pulse Rate 135 H 131 H 127 H Respiratory Rate 27 H 25 H 26 H Blood Pressure 133/87 Pulse Oximetry 93 Oxygen Delivery Fraction of Inspired Oxygen 08/17/25 21:00 08/17/25 21:00 08/17/25 21:15 Temperature Pulse Rate 124 H 102 H 122 H Respiratory Rate 20 18 19 Blood Pressure 132/91 H 142/89 H Pulse Oximetry 94 95 Oxygen Delivery Fraction of Inspired Oxygen 08/17/25 22:00 08/17/25 22:00 08/17/25 22:00 Temperature 36.8 C Pulse Rate 102 H 102 H 106 H Respiratory Rate 18 18 Blood Pressure 97/77 L Pulse Oximetry 97 Oxygen Delivery Fraction of Inspired Oxygen 08/17/25 22:16 08/17/25 23:00 08/17/25 23:00 Temperature Pulse Rate 99 99 Respiratory Rate 18 18 Blood Pressure 98/73 L Pulse Oximetry 96 Oxygen Delivery Fraction of Inspired Oxygen 50 08/17/25 23:26 08/17/25 23:40 08/17/25 23:51 Temperature Pulse Rate 111 H 97 Respiratory Rate 18 Blood Pressure Pulse Oximetry 97 96 Oxygen Delivery Mechanical Ventilation Mechanical Ventilation Fraction of Inspired Oxygen 50 50 08/17/25 23:52 08/18/25 00:00 08/18/25 00:00 Temperature 36.9 C Pulse Rate 98 98 Respiratory Rate 18 18 Blood Pressure 101/75 Pulse Oximetry 97 Oxygen Delivery Fraction of Inspired Oxygen 50 08/18/25 00:00 08/18/25 00:00 08/18/25 01:00 Temperature Pulse Rate 98 98 92 Respiratory Rate 18 18 Blood Pressure 82/66 L Pulse Oximetry 97 Oxygen Delivery Fraction of Inspired Oxygen 08/18/25 01:00 08/18/25 02:00 08/18/25 02:00 Temperature 36.9 C Pulse Rate 92 92 92 Respiratory Rate 18 18 Blood Pressure 102/80 Pulse Oximetry 97 Oxygen Delivery Fraction of Inspired Oxygen 08/18/25 02:00 08/18/25 02:00 08/18/25 02:11 Temperature Pulse Rate 92 92 95 Respiratory Rate 18 18 Blood Pressure Pulse Oximetry 97 Oxygen Delivery Mechanical Ventilation Fraction of Inspired Oxygen 50 08/18/25 03:00 08/18/25 04:00 08/18/25 04:00 Temperature 37.2 C Pulse Rate 91 93 93 Respiratory Rate 18 18 18 Blood Pressure 87/70 L 83/64 L Pulse Oximetry 97 97 Oxygen Delivery Fraction of Inspired Oxygen 08/18/25 04:00 08/18/25 04:00 08/18/25 04:00 Temperature Pulse Rate 92 93 Respiratory Rate 18 Blood Pressure Pulse Oximetry 97 Oxygen Delivery Mechanical Ventilation Fraction of Inspired Oxygen 50 08/18/25 04:00 08/18/25 04:23 08/18/25 05:00 Temperature Pulse Rate 97 92 Respiratory Rate 18 Blood Pressure 83/66 L Pulse Oximetry 97 97 Oxygen Delivery Mechanical Ventilation Fraction of Inspired Oxygen 50 50 08/18/25 06:00 08/18/25 06:00 08/18/25 06:00 Temperature 37.2 C Pulse Rate 85 93 93 Respiratory Rate 18 18 Blood Pressure 88/66 L Pulse Oximetry 97 Oxygen Delivery Fraction of Inspired Oxygen 08/18/25 06:00 08/18/25 07:00 08/18/25 08:00 Temperature Pulse Rate 93 95 94 Respiratory Rate 18 18 18 Blood Pressure 97/72 L Pulse Oximetry 97 Oxygen Delivery Fraction of Inspired Oxygen 08/18/25 08:00 08/18/25 08:14 08/18/25 08:14 Temperature Pulse Rate 94 97 97 Respiratory Rate 18 20 20 Blood Pressure Pulse Oximetry Oxygen Delivery Fraction of Inspired Oxygen 08/18/25 09:00 08/18/25 09:00 08/18/25 09:39 Temperature Pulse Rate 92 79 94 Respiratory Rate 18 18 Blood Pressure Pulse Oximetry 99 Oxygen Delivery Mechanical Ventilation Fraction of Inspired Oxygen 40 08/18/25 12:13 Temperature Pulse Rate 95 Respiratory Rate Blood Pressure Pulse Oximetry 95 Oxygen Delivery Mechanical Ventilation Fraction of Inspired Oxygen 40 Intake/Output Intake/Output: Intake & Output 08/15/25 08/16/25 08/17/25 08/18/25 23:59 23:59 23:59 23:59 Intake Total 2200.0 3474.7 4742.0 1278.6 Output Total 1800 2125 2500 520 Balance 400.0 1349.7 2242.0 758.6 Meds/Results Medications: Active Medications Generic Name Dose Route Start Last Admin Trade Name Freq PRN Reason Stop Dose Admin Albuterol/Ipratropium 3 ml 08/18/25 14:00 Ipratropium 0.5 Mg/Albuterol Sulfate 2.5 Mg (Base) Ampul.Neb 3 Ml INHALATION Q6HRT ANNETTE Dextrose 12.5 gm 08/15/25 07:56 Dextrose 50% 25 Gm/50 Ml Syringe IV PUSH PRN PRN Hypoglycemia Protocol Enoxaparin Sodium 40 mg 08/11/25 09:00 08/18/25 08:16 Enoxaparin 40 Mg/0.4 Ml Syringe SUB-Q 40 mg DAILY ANNETTE Administration Famotidine 20 mg 08/10/25 21:00 08/18/25 08:16 Famotidine 20 Mg/2 Ml Vial IV PUSH 20 mg Q12HR ANNETTE Administration Fentanyl Citrate 25 mcg 08/17/25 16:58 Fentanyl Citrate Inj (*Crx) 100 Mcg/2 Ml Vial IV PUSH Q2M PRN Pain Glucagon 1 mg 08/15/25 07:56 Glucagon For Inj 1 Mg Vial IM PRN PRN Hypoglycemia Protocol Glucose 15 gm 08/15/25 07:56 Glucose Oral Gel 15 Gm Of Glucse In 37.5 Gm Tube PO PRN PRN Hypoglycemia Protocol Hydrochlorothiazide 12.5 mg 08/11/25 09:00 08/12/25 10:31 Hydrochlorothiazide 12.5 Mg Capsule PO 12.5 mg On Hold: 08/12/25 11:48 QAM ANNETTE Administration Ibuprofen 800 mg in 200 mls @ 400 mls/hr 08/10/25 13:04 Caldolor 800 Mg/200 Ml IVPB Q6H PRN Breakthrough Pain Rated 1-3 or NPO Piperacillin Sod/Tazobactam 50 mls @ 100 mls/hr 08/12/25 12:00 08/18/25 05:50 Sod 3.375 gm/ Sodium Chloride IVPB Infused Q6H ANNETTE Infusion Dextrose 1,000 mls @ 50 mls/hr 08/15/25 07:56 Dextrose 10% IV CONT .Q20H PRN if PN is interrupted Dextrose 1,000 mls @ 100 mls/hr 08/15/25 07:56 Dextrose 5% 1,000 Ml IVPB PRN PRN Hypoglycemia Protocol Multivitamins 1.25 ml/ 1,002.5 mls @ 70 mls/hr 08/15/25 12:00 08/17/25 23:05 Multivitamins 1.25 ml/ Amino IV CONT Not Given Acids/Electrolytes/Dextrose .[id number] NANETTE On Hold: 08/17/25 21:12 Protocol Fat Emulsion Intravenous 250 mls @ 20.833 mls/hr 08/15/25 12:00 08/17/25 11:50 Lipids 20% IVPB 20 mls/hr On Hold: 08/17/25 21:13 Q24H ANNETTE Administration Fentanyl Citrate 2,500 mcg in 250 mls @ 10 mls/hr 08/17/25 19:40 08/18/25 09:00 Fentanyl 2,500 Mcg/Ns 250 Ml IV CONT 100 mcg/hr .Q25H ANNETTE 10 mls/hr Protocol Titration 100 MCG/HR Midazolam HCl 100 mg in 100 mls @ 1 mls/hr 08/17/25 19:40 08/18/25 09:00 Versed 100 Mg/Ns 100 Ml IV CONT 1 mg/hr .Q72H ANNETTE 1 mls/hr Protocol Titration 1 MG/HR Albumin Human 100 mls @ 60 mls/hr 08/18/25 12:00 Albutein IVPB 08/19/25 07:39 Q6HR ANNETTE Micafungin Sodium 100 mg/ 100 mls @ 100 mls/hr 08/18/25 09:20 08/18/25 10:09 Sodium Chloride IVPB 100 mls/hr DAILY ANNETTE Administration Insulin Aspart 1 - 3 units 08/15/25 21:00 08/17/25 20:35 Insulin Aspart (*Bkc) 100 Units/Ml SUB-Q Not Given On Hold: 08/18/25 07:35 HS [facility] Protocol Insulin Aspart 3 - 6 units 08/18/25 07:37 08/18/25 08:16 Insulin Aspart (*Bkc) 100 Units/Ml SUB-Q Not Given Q6H [facility] Protocol Losartan Potassium 100 mg 08/11/25 09:00 08/12/25 10:30 Losartan Potassium 100 Mg Tablet PO 100 mg On Hold: 08/12/25 11:48 DAILY ANNETTE Administration Morphine Sulfate 1 mg 08/13/25 18:43 08/17/25 11:48 Morphine Sulfate (*Crx) 4 Mg/Ml Inj IV PUSH 1 mg On Hold: 08/18/25 07:36 Q2H PRN Administration Breakthrough Pain Rated 4-6 or NPO Morphine Sulfate 2 mg 08/13/25 18:43 08/17/25 14:45 Morphine Sulfate (*Crx) 4 Mg/Ml Inj IV PUSH 2 mg On Hold: 08/18/25 07:36 Q2H PRN Administration Breakthrough Pain Rated 7-10 or NPO Multi-Ingred Cream/Lotion/Oil/Oint 1 applic 08/17/25 21:00 08/18/25 08:16 Mineral Oil/White Petrolatum Ointment EACH EYE 1 applic Q12HR ANNETTE Administration Naloxone HCl 0.1 mg 08/10/25 13:04 Naloxone Hcl 0.4 Mg/Ml Vial IV PUSH Q2M PRN Opiate Reversal Ondansetron HCl 4 mg 08/10/25 13:04 Ondansetron Inj 4 Mg/2 Ml Vial IV PUSH Q4H PRN Nausea And Vomiting Oxycodone/Acetaminophen 1 tablet 08/10/25 13:04 08/12/25 10:33 Oxycodone/Acetaminophen (*Crx) 5-325 Mg Tablet PO 1 tablet On Hold: 08/12/25 11:49 Q4H PRN Administration Pain Rated 4-6 Oxycodone/Acetaminophen 1 tab 08/10/25 13:04 08/11/25 15:28 Oxycodone/Acetaminophen (*Crx) 10-325 Mg Tablet PO 1 tab On Hold: 08/12/25 11:49 Q6H PRN Administration Pain Rated 7-10 Sodium Chloride 10 ml 08/15/25 14:00 08/18/25 05:20 Central Line Flush IV PUSH 10 ml Q8HR ANNETTE Administration Sodium Chloride 10 ml 08/15/25 11:41 Central Line Flush IV PUSH PRN PRN with TPN bag changes Sodium Chloride 20 ml 08/15/25 11:41 Central Line Flush IV PUSH PRN PRN after blood draws Tramadol HCl 50 mg 08/10/25 13:04 Tramadol Hcl (*Crx) 50 Mg Tablet PO On Hold: 08/12/25 11:49 Q4H PRN Pain Rated 1-3 Trazodone HCl 50 mg 08/10/25 13:04 Trazodone Hcl 50 Mg Tablet PO On Hold: 08/12/25 11:49 HS PRN Insomnia Umeclidinium/Vilanterol 1 puff 08/10/25 14:00 08/17/25 07:26 Umeclidinium/Vilanterol 62.5-25 Mcg Ellipta INHALATION 1 puff DAILY ANNETTE Administration Radiology Results: ITS Impressions Chest CTA 08/13/25 16:42 IMPRESSION: 1. Negative for pulmonary embolism. Bilateral probable pneumonia. 2. Intra-abdominal free air possibly postoperative in nature relatively unchanged compared to the previous exam Abdomen/Pelvis CT 08/15/25 08:38 IMPRESSION: 1. Ileus and/or developing small bowel obstruction. 2. Free intraperitoneal air favoring recent postoperative change. 3. Peritonitis, with scattered ascites and interloop fluid. 4. Worrisome for cystitis, unless recent catheter manipulation. 5. Significant bibasilar atelectasis and/or airspace disease, with small left effusion. Catheter Placement CT 08/16/25 14:04 IMPRESSION: 1. Successful CT-guided right transgluteal abscess drainage. 2. 60 mL fluid was sent for aerobic and anaerobic cultures. 3. The catheter will be managed by Dr. Anderson. Small Bowel X-Ray 08/17/25 13:42 Impression: 1: Incomplete small bowel study with delayed passage of contrast into the distal small bowel. Study terminated due to complications with patient. Proximal small bowel dilated with multiple dilated distal loops of small bowel. Findings compatible with obstruction. Chest X-Ray 08/18/25 08:14 Impression: No significant change. Abdomen X-Ray 08/18/25 08:28 Impression: 1. Ileus versus early obstruction. The findings appear relatively unchanged Labs Labs: Laboratory Results - last 24 hr 08/17/25 08/17/25 08/17/25 19:56 21:38 23:28 WBC RBC Hgb Hct MCV MCH MCHC RDW Plt Count MPV Immature Gran % (Auto) Neut % (Auto) Lymph % (Auto) [place] % (Auto) Eos % (Auto) Baso % (Auto) Lymph # (Auto) [place] # (Auto) Eos # (Auto) Baso # (Auto) Abs Immat Gran (auto) Absolute Neuts (auto) Absolute Nucleated RBC Band Neutrophils % Nucleated RBC % Atypical Lymphocytes Toxic Granulation Platelet Estimate Schistocytes Puncture Site Right radial ABG pH 7.367 ABG pCO2 37.7 ABG pO2 80.3 ABG PO2/FiO2 Ratio 1.61 ABG HCO3 21.2 L ABG O2 Saturation 95.6 ABG O2 Content 19.6 ABG Base Excess -3.6 A-a Gradient 233.8 Oxyhemoglobin 94.6 Carboxyhemoglobin 1.1 Methemoglobin 0.2 Reduced Hemoglobin 4.1 Total Hemoglobin 14.7 O2 Delivery Device Ventilator O2 Liters/Min Not Reportable Minute Volume Not Reportable Vent Rate 18 Vent Mode Cmv FiO2 50 Tidal Volume 400 PEEP 5 Peak Inspir Pressure Not Reportable Pressure Support Not Reportable Sodium Potassium Chloride Carbon Dioxide Anion Gap BUN Creatinine Estim Creat Clear Calc Estimated GFR Glucose POC Capillary Glucose 137 H 156 H Calcium Phosphorus Magnesium Total Bilirubin AST ALT Alkaline Phosphatase C-Reactive Protein Total Protein Albumin Triglycerides Nasal MRSA (PCR) Blood Type Antibody Screen 08/17/25 08/18/25 08/18/25 23:59 04:15 05:07 WBC 19.4 H RBC 4.12 L Hgb 13.4 L Hct 41.5 L MCV 100.7 H MCH 32.5 MCHC 32.3 RDW 14.1 Plt Count 370 D MPV 8.5 Immature Gran % (Auto) 5.0 H Neut % (Auto) 81.1 H Lymph % (Auto) 6.2 L [place] % (Auto) 6.6 Eos % (Auto) 0.2 Baso % (Auto) 0.9 Lymph # (Auto) 1.21 [place] # (Auto) 1.3 H Eos # (Auto) 0.0 Baso # (Auto) 0.2 H Abs Immat Gran (auto) 0.98 H Absolute Neuts (auto) 15.7 H Absolute Nucleated RBC 0.000 Band Neutrophils % Not Reportable Nucleated RBC % 0.0 Atypical Lymphocytes Present Toxic Granulation Present Platelet Estimate Adequate Schistocytes None seen Puncture Site Right radial ABG pH 7.382 ABG pCO2 39.9 ABG pO2 100.3 H ABG PO2/FiO2 Ratio 2.01 ABG HCO3 23.2 ABG O2 Saturation 97.5 ABG O2 Content 21.0 ABG Base Excess -1.7 A-a Gradient 211.3 Oxyhemoglobin 96.7 Carboxyhemoglobin 1.2 Methemoglobin 0.1 Reduced Hemoglobin 2.0 Total Hemoglobin 15.4 O2 Delivery Device Ventilator O2 Liters/Min Not Reportable Minute Volume Not Reportable Vent Rate 18 Vent Mode Cmv FiO2 50 Tidal Volume 400 PEEP 5 Peak Inspir Pressure Not Reportable Pressure Support Not Reportable Sodium 130 L Potassium 5.0 Chloride 103 Carbon Dioxide 25 Anion Gap 2 L BUN 13 D Creatinine 1.13 Estim Creat Clear Calc 63 Estimated GFR > 60 Glucose 111 H POC Capillary Glucose Calcium 7.8 L Phosphorus 6.2 H Magnesium 1.7 Total Bilirubin 1.0 AST 31 ALT 12 Alkaline Phosphatase 77 C-Reactive Protein 15.3 H Total Protein 5.4 L Albumin 2.5 L Triglycerides 169 H Nasal MRSA (PCR) Not detected Blood Type O Negative Antibody Screen Negative 08/18/25 08:10 WBC RBC Hgb Hct MCV MCH MCHC RDW Plt Count MPV Immature Gran % (Auto) Neut % (Auto) Lymph % (Auto) [place] % (Auto) Eos % (Auto) Baso % (Auto) Lymph # (Auto) [place] # (Auto) Eos # (Auto) Baso # (Auto) Abs Immat Gran (auto) Absolute Neuts (auto) Absolute Nucleated RBC Band Neutrophils % Nucleated RBC % Atypical Lymphocytes Toxic Granulation Platelet Estimate Schistocytes Puncture Site ABG pH ABG pCO2 ABG pO2 ABG PO2/FiO2 Ratio ABG HCO3 ABG O2 Saturation ABG O2 Content ABG Base Excess A-a Gradient Oxyhemoglobin Carboxyhemoglobin Methemoglobin Reduced Hemoglobin Total Hemoglobin O2 Delivery Device O2 Liters/Min Minute Volume Vent Rate Vent Mode FiO2 Tidal Volume PEEP Peak Inspir Pressure Pressure Support Sodium Potassium Chloride Carbon Dioxide Anion Gap BUN Creatinine Estim Creat Clear Calc Estimated GFR Glucose POC Capillary Glucose 123 H Calcium Phosphorus Magnesium Total Bilirubin AST ALT Alkaline Phosphatase C-Reactive Protein Total Protein Albumin Triglycerides Nasal MRSA (PCR) Blood Type Antibody Screen
[2025-08-18] MEDS: ALBUMIN HUMAN 25% 25 GM/100 ML 100 ML IVPB ×2 (12:43→17:51)
[2025-08-18] MEDS: IPRATROPIUM 0.5 MG/ALBUTEROL SULFATE 2.5 MG (BASE) AMPUL.NEB 3 ML INHALATION ×2 (15:07→20:05)
[2025-08-18] MEDS: FENTANYL 2,500MCG/NS250ML(*CRX 2,500 MCG/250 ML BAG 10 MCG IV CONT (20:37)
[2025-08-19] VITALS (41 sets, daily range): BP systolic 102–156; BP diastolic 65–96; PULSE 85–113; RESP 16–30; TEMP 36.1–37.2; O2SAT 95–100
[2025-08-19] MEDS: PIPERACILLIN/TAZOBACTAM SOD 3.375 GM in SODIUM CHLORIDE 0.9% IV 50 ML 100 ML IVPB ×5 (00:19→23:21)
[2025-08-19] MEDS: ALBUMIN HUMAN 25% 25 GM/100 ML 100 ML IVPB ×2 (00:26→06:23)
[2025-08-19] MEDS: IPRATROPIUM 0.5 MG/ALBUTEROL SULFATE 2.5 MG (BASE) AMPUL.NEB 3 ML INHALATION ×4 (01:55→21:17)
[2025-08-19 05:09] LABS: Hematocrit 32.7 % (42.0-52.0); Hemoglobin 10.5 g/dL (14.0-18.0); Immature Granulocyte Percent A 4.9 % (0-0.5); Lymphocytes Absolute Auto 2.01 K/mm3 (0.9-3.2); Mean Corpuscular HGB Conc 32.1 g/dl (32-36); Mean Corpuscular Hemoglobin 33.0 pg (26-34); Mean Corpuscular Volume 102.8 fl (80-100); Nucleated Red Blood Cells Absolute Auto 0.000 K/mm3 (0.0-0.012); Nucleated Red Blood Cells Perc 0.0 % (0.0-0.2); Platelet Count Result 369 k/mm3 (150-375); Red Blood Count 3.18 M/mm3 (4.6-6.20); White Blood Count 15.9 K/mm3 (4.5-10.0)
[2025-08-19 05:30] LABS: Alveolar/Arterial O2 Gradient 135.7 mmHg; Carboxyhemoglobin 0.5 % THb (0-2.0); Fractional Inspired Oxygen 40 %; HCO3 ABG 24.1 mEq/l (22.0-26.0); Methemoglobin ABG 0.1 %THb (0-1.5); Oxygen Content ABG 16.8 %vol (16.0-22.0); Oxygen Saturation ABG 97.6 % (95.0-100.0); PCO2 ABG 41.4 mmHg (35.0-45.0); PO2 ABG 101.9 mmHg (80.0-100.0); PO2 FiO2 Ratio Arterial Blood 2.55 %; Reduced Hemoglobin 2.3 %THb (0-5.0)
[2025-08-19 05:32] LABS: Modified Allen's Test Pass; Site Drawn LEFT RADIAL
[2025-08-19 05:33] LABS: Arterial Blood Gas Tidal Volume 400 ml; Arterial Blood Gas Ventilator rate 18 /MIN
[2025-08-19 05:33] LABS: Anion Gap 4 mmol/L (4-12); Blood Urea Nitrogen 17 mg/dL (9-20); Calcium 7.9 mg/dL (8.4-10.2); Carbon Dioxide 25 mmol/L (22-30); Chloride 104 mmol/L (98-107); Estimated CRCL calculation 55 ml/min; Estimated Glomerular Filt Rate 56; Glucose 94 mg/dL (65-110); Potassium 3.9 mmol/L (3.4-5.0); Schistocytes None Seen; Sodium 133 mmol/L (137-145)
[2025-08-19 05:50] LABS: CRP 24.9 mg/dL (<1.0)
[2025-08-19] MEDS: CENTRAL LINE FLUSH 10 ML IV PUSH ×3 (06:35→20:17)
[2025-08-19] MEDS: MICAFUNGIN SODIUM 100 MG in SODIUM CHLORIDE 0.9% IV 100 ML IVPB (08:36)
[2025-08-19] MEDS: FAMOTIDINE 20 MG/2 ML VIAL IV PUSH ×2 (08:41→20:17)
[2025-08-19] MEDS: MINERAL OIL/WHITE PETROLATUM OINTMENT 1 APPLIC EACH EYE (08:41)
[2025-08-19] MEDS: MIDAZOLAM 100MG/NS 100ML(*CRX) 100 MG/100 ML BAG IV CONT (09:04)
--- NOTE | 2025-08-19 09:06 | WPDHPUPDATE1 ---
History and Physical Update Update Date/Time: 08/19/25 09:06 History and Physical has been reviewed, including an updated exam of the patient. There are NO changes in the patient's condition. Risks, benefits, and alternatives have been discussed and questions answered. Patient agrees to proceed with procedure.
[2025-08-19] MEDS: LACTATED RINGERS 1,000 ML 100 ML IV CONT (09:16)
--- NOTE | 2025-08-19 10:25 | P.PNIM_ITS ---
Progress Note: A&P Assessment and Plan (1) Acute respiratory failure: Code(s): J96.00 - Acute respiratory failure, unspecified whether with hypoxia or hypercapnia Status: Acute Assessment and Plan: Acute respiratory failure likely related to anesthesia and surgery for small bowel perforation on 08/18 -patient currently on CMV mode of ventilation, peep of 5, 50% FiO2, will wean FiO2 to maintain O2 sats > 92% -continue DuoNebs -08/18: Discussed with Dr. Anderson, patient is going for a washout on 08/19, will keep him intubated and on mechanical ventilation today -sedated with fentanyl and Versed infusion, maintain RASS of 0 to -2 -Daily SBT and SAT 08/19/2025 patient is scheduled for washout today. Plan to continue with intubation and mechanical ventilation (2) Bowel perforation: Code(s): K63.1 - Perforation of intestine (nontraumatic) Status: Acute Assessment and Plan: 08/18: Exploratory laparotomy, small-bowel perforation, adhesiolysis, removal of pigtail catheter drain. 08/17: Patient's pigtail drain had entry contents, small-bowel follow-through with water-soluble contrast was consistent with small-bowel obstruction -discussed with surgery, patient did have a perforation of the jejunum also had enteric contents in the peritoneal cavity -continue Zosyn -will add micafungin -patient will be going for a washout to the OR on 08/19 per surgery -will hold TPN for now (3) Obstruction of small intestine after surgical procedure: Code(s): K91.30 - Postprocedural intestinal obstruction, unspecified as to partial versus complete Status: Acute Assessment and Plan: As above (4) Intra-abdominal abscess: Code(s): K65.1 - Peritoneal abscess Status: Acute Assessment and Plan: 08/16/2025: Status post percutaneous drainage by Interventional Radiology for pelvic fluid collection status post recent sigmoidectomy (CT-guided right transgluteal abscess drainage catheter placement) (5) Protein-calorie malnutrition, severe: Code(s): E43 - Unspecified severe protein-calorie malnutrition Status: Acute Assessment and Plan: Patient has been on TPN which currently is on hold postoperatively. (6) Status post colon resection: Code(s): Z90.49 - Acquired absence of other specified parts of digestive tract Status: Acute Assessment and Plan: 08/10/2025: Sigmoidectomy for recurring diverticulitis (7) History of DVT (deep vein thrombosis): Code(s): Z86.718 - Personal history of other venous thrombosis and embolism Status: Acute Assessment and Plan: Patient has been on Xarelto as outpatient which is currently on hold -continue prophylactic Lovenox per surgery (8) Bronchiectasis: Qualifiers: Bronchiectasis type: uncomplicated Qualified Code(s): J47.9 - Bronchiectasis, uncomplicated Code(s): J47.9 - Bronchiectasis, uncomplicated Status: Chronic Assessment and Plan: In March 2025 but had an abdominal chest x-ray and bronchiectasis on the chest CT. He followed up with Dr. Disla, the superintendent division, who did an extensive workup along with a 6 minute walk study which she passed. The superintendent division did find past CT scan that showed bronchiectatic changes. Patient was cleared for surgery. Plan Case discussed with in detail. Agreed with current plan of care and treatment. DVT prophylaxis: Lovenox SQ Stress ulcer prophylaxis: Famotidine Nutrition: NPO Code Status: Full code Subjective Date/time seen: 08/19/25 10:25 Interval history: Patient was seen during the morning rounds today. Patient is intubated. Responds to verbal commands. Family bedside. Review of Systems Review of Systems: All systems reviewed & are unremarkable except as noted in HPI and below ROS unobtainable: Yes unobtainable due to endotracheal tube and unobtainable due to medical condition Exam Narrative: General: Intubated, sedated, in no acute distress HEENT:? Pupils equal and reactive, sclera is clear, ETT in place Neck:? Supple Respiratory:? Coarse breath sounds at bases bilaterally, adequate air entry, no wheezing Cardiac:? S1-S2 is normal, regular rate and rhythm Abdomen:? Soft, tender to palpation, nondistended, no bowel sounds were appreciated. Abdominal dressing in place, clean, dry and intact Extremities:? No edema, palpable pedal pulses Neuro:? Patient is intubated on sedation but is awake, nods to questions, follows simple commands in all extremities Skin:? Warm and dry Psych:? Unable to assess at this time Objective Data Vital Signs Vital Signs: Vital Signs - 24 hr 08/18/25 11:00 08/18/25 12:00 08/18/25 12:00 Temperature Pulse Rate 92 96 Respiratory Rate 18 18 Blood Pressure 101/73 Pulse Oximetry 96 97 Oxygen Delivery Mechanical Ventilation Fraction of Inspired Oxygen 40 40 08/18/25 12:00 08/18/25 12:00 08/18/25 12:00 Temperature 37.3 C Pulse Rate 96 96 96 Respiratory Rate 18 18 18 Blood Pressure 101/77 Pulse Oximetry 97 Oxygen Delivery Fraction of Inspired Oxygen 08/18/25 12:00 08/18/25 12:13 08/18/25 13:00 Temperature Pulse Rate 92 95 94 Respiratory Rate 18 Blood Pressure 99/76 L Pulse Oximetry 95 96 Oxygen Delivery Mechanical Ventilation Fraction of Inspired Oxygen 40 08/18/25 14:00 08/18/25 14:00 08/18/25 14:00 Temperature Pulse Rate 92 92 92 Respiratory Rate 18 18 Blood Pressure Pulse Oximetry Oxygen Delivery Fraction of Inspired Oxygen 08/18/25 14:00 08/18/25 15:00 08/18/25 15:08 Temperature Pulse Rate 92 90 94 Respiratory Rate 18 18 18 Blood Pressure 107/76 106/76 Pulse Oximetry 96 96 Oxygen Delivery Fraction of Inspired Oxygen 08/18/25 15:11 08/18/25 15:15 08/18/25 16:00 Temperature 37.4 C Pulse Rate 94 93 96 Respiratory Rate 18 19 Blood Pressure 106/77 Pulse Oximetry 96 97 Oxygen Delivery Mechanical Ventilation Fraction of Inspired Oxygen 40 08/18/25 16:00 08/18/25 16:00 08/18/25 16:00 Temperature Pulse Rate 96 96 96 Respiratory Rate 19 19 19 Blood Pressure Pulse Oximetry 97 Oxygen Delivery Mechanical Ventilation Fraction of Inspired Oxygen 40 08/18/25 16:00 08/18/25 16:00 08/18/25 17:00 Temperature Pulse Rate 93 99 Respiratory Rate 20 Blood Pressure 107/75 Pulse Oximetry 96 Oxygen Delivery Fraction of Inspired Oxygen 40 08/18/25 17:32 08/18/25 18:00 08/18/25 18:00 Temperature Pulse Rate 99 99 99 Respiratory Rate 18 Blood Pressure 115/74 Pulse Oximetry 96 96 Oxygen Delivery Mechanical Ventilation Fraction of Inspired Oxygen 40 08/18/25 18:00 08/18/25 18:00 08/18/25 19:00 Temperature Pulse Rate 99 99 95 Respiratory Rate 18 18 18 Blood Pressure 114/67 Pulse Oximetry 97 Oxygen Delivery Fraction of Inspired Oxygen 08/18/25 19:15 08/18/25 19:30 08/18/25 19:45 Temperature Pulse Rate 93 93 94 Respiratory Rate 19 18 18 Blood Pressure 112/69 123/71 107/71 Pulse Oximetry 100 98 97 Oxygen Delivery Fraction of Inspired Oxygen 08/18/25 20:00 08/18/25 20:00 08/18/25 20:00 Temperature 37.6 C H Pulse Rate 92 92 92 Respiratory Rate 18 18 18 Blood Pressure 111/71 Pulse Oximetry 98 Oxygen Delivery Fraction of Inspired Oxygen 08/18/25 20:00 08/18/25 20:00 08/18/25 20:00 Temperature Pulse Rate 92 92 Respiratory Rate 18 Blood Pressure Pulse Oximetry 98 Oxygen Delivery Mechanical Ventilation Fraction of Inspired Oxygen 40 40 08/18/25 20:06 08/18/25 20:09 08/18/25 20:15 Temperature Pulse Rate 94 94 95 Respiratory Rate 18 18 Blood Pressure 112/76 Pulse Oximetry 98 98 Oxygen Delivery Mechanical Ventilation Fraction of Inspired Oxygen 40 08/18/25 20:20 08/18/25 20:37 08/18/25 20:37 Temperature Pulse Rate 92 96 96 Respiratory Rate 18 18 18 Blood Pressure Pulse Oximetry Oxygen Delivery Fraction of Inspired Oxygen 08/18/25 21:00 08/18/25 22:00 08/18/25 22:00 Temperature Pulse Rate 91 93 93 Respiratory Rate 18 20 20 Blood Pressure 114/70 Pulse Oximetry 98 Oxygen Delivery Fraction of Inspired Oxygen 08/18/25 22:00 08/18/25 22:00 08/18/25 22:03 Temperature Pulse Rate 93 93 94 Respiratory Rate 20 Blood Pressure 122/77 Pulse Oximetry 97 98 Oxygen Delivery Mechanical Ventilation Fraction of Inspired Oxygen 40 08/18/25 22:44 08/18/25 22:45 08/18/25 23:00 Temperature Pulse Rate 107 H 107 H 104 H Respiratory Rate 20 20 14 Blood Pressure 131/84 123/76 Pulse Oximetry 95 96 Oxygen Delivery Fraction of Inspired Oxygen 08/19/25 00:00 08/19/25 00:00 08/19/25 00:00 Temperature 37.1 C Pulse Rate 97 97 97 Respiratory Rate 18 18 18 Blood Pressure 102/65 Pulse Oximetry 96 Oxygen Delivery Fraction of Inspired Oxygen 08/19/25 00:00 08/19/25 00:00 08/19/25 00:00 Temperature Pulse Rate 97 91 Respiratory Rate 18 Blood Pressure Pulse Oximetry 96 Oxygen Delivery Mechanical Ventilation Fraction of Inspired Oxygen 40 40 08/19/25 01:00 08/19/25 01:55 08/19/25 01:59 Temperature Pulse Rate 89 88 88 Respiratory Rate 18 18 Blood Pressure 106/66 Pulse Oximetry 97 99 Oxygen Delivery Mechanical Ventilation Fraction of Inspired Oxygen 08/19/25 02:00 08/19/25 02:00 08/19/25 02:00 Temperature Pulse Rate 89 89 88 Respiratory Rate 18 18 Blood Pressure 118/69 Pulse Oximetry 98 Oxygen Delivery Fraction of Inspired Oxygen 08/19/25 02:00 08/19/25 02:11 08/19/25 03:00 Temperature Pulse Rate 88 88 87 Respiratory Rate 18 18 18 Blood Pressure 108/72 Pulse Oximetry 97 Oxygen Delivery Fraction of Inspired Oxygen 08/19/25 04:00 08/19/25 04:00 08/19/25 04:00 Temperature Pulse Rate 89 89 89 Respiratory Rate 18 19 19 Blood Pressure Pulse Oximetry 98 Oxygen Delivery Mechanical Ventilation Fraction of Inspired Oxygen 40 08/19/25 04:00 08/19/25 04:00 08/19/25 04:00 Temperature 37.1 C Pulse Rate 89 89 Respiratory Rate 19 Blood Pressure 111/70 Pulse Oximetry 98 Oxygen Delivery Fraction of Inspired Oxygen 40 08/19/25 05:00 08/19/25 05:35 08/19/25 06:00 Temperature Pulse Rate 87 104 H 90 Respiratory Rate 18 22 H Blood Pressure 112/72 Pulse Oximetry 98 99 Oxygen Delivery Mechanical Ventilation Fraction of Inspired Oxygen 08/19/25 06:00 08/19/25 06:00 08/19/25 06:00 Temperature Pulse Rate 90 90 90 Respiratory Rate 22 H 22 H Blood Pressure 123/74 Pulse Oximetry 98 Oxygen Delivery Fraction of Inspired Oxygen 08/19/25 06:28 08/19/25 07:00 08/19/25 08:00 Temperature Pulse Rate 90 88 87 Respiratory Rate 21 H 19 18 Blood Pressure 121/71 109/65 Pulse Oximetry 99 99 Oxygen Delivery Fraction of Inspired Oxygen 08/19/25 09:00 08/19/25 09:04 08/19/25 09:04 Temperature Pulse Rate 91 91 Respiratory Rate 18 18 Blood Pressure 125/67 Pulse Oximetry Oxygen Delivery Fraction of Inspired Oxygen Intake/Output Intake/Output: Intake & Output 08/16/25 08/17/25 08/18/2508/19/25 23:59 23:59 23:59 23:59 Intake Total 3474.7 4742.0 1895.1 326.2 Output Total 2125 2500 1140 810 Balance 1349.7 2242.0 755.1 -483.8 Meds/Results Medications: Active Medications Generic Name Dose Route Start Last Admin Trade Name Freq PRN Reason Stop Dose Admin Albuterol/Ipratropium 3 ml 08/18/25 14:00 08/19/25 07:34 Ipratropium 0.5 Mg/Albuterol Sulfate 2.5 Mg (Base) Ampul.Neb 3 Ml INHALATION 3 ml Q6HRT ANNETTE Administration Dextrose 12.5 gm 08/15/25 07:56 Dextrose 50% 25 Gm/50 Ml Syringe IV PUSH PRN PRN Hypoglycemia Protocol Enoxaparin Sodium 40 mg 08/11/25 09:00 08/19/25 09:03 Enoxaparin 40 Mg/0.4 Ml Syringe SUB-Q Not Given DAILY ANNETTE Famotidine 20 mg 08/10/25 21:00 08/19/25 08:41 Famotidine 20 Mg/2 Ml Vial IV PUSH 20 mg Q12HR ANNETTE Administration Fentanyl Citrate 25 mcg 08/17/25 16:58 Fentanyl Citrate Inj (*Crx) 100 Mcg/2 Ml Vial IV PUSH Q2M PRN Pain Glucagon 1 mg 08/15/25 07:56 Glucagon For Inj 1 Mg Vial IM PRN PRN Hypoglycemia Protocol Glucose 15 gm 08/15/25 07:56 Glucose Oral Gel 15 Gm Of Glucse In 37.5 Gm Tube PO PRN PRN Hypoglycemia Protocol Hydrochlorothiazide 12.5 mg 08/11/25 09:00 08/12/25 10:31 Hydrochlorothiazide 12.5 Mg Capsule PO 12.5 mg On Hold: 08/12/25 11:48 QAM ANNETTE Administration Ibuprofen 800 mg in 200 mls @ 400 mls/hr 08/10/25 13:04 Caldolor 800 Mg/200 Ml IVPB Q6H PRN Breakthrough Pain Rated 1-3 or NPO Piperacillin Sod/Tazobactam 50 mls @ 100 mls/hr 08/12/25 12:00 08/19/25 06:30 Sod 3.375 gm/ Sodium Chloride IVPB 100 mls/hr Q6H ANNETTE Administration Dextrose 1,000 mls @ 50 mls/hr 08/15/25 07:56 Dextrose 10% IV CONT .Q20H PRN if PN is interrupted Dextrose 1,000 mls @ 100 mls/hr 08/15/25 07:56 Dextrose 5% 1,000 Ml IVPB PRN PRN Hypoglycemia Protocol Multivitamins 1.25 ml/ 1,002.5 mls @ 70 mls/hr 08/15/25 12:00 08/17/25 23:05 Multivitamins 1.25 ml/ Amino IV CONT Not Given Acids/Electrolytes/Dextrose .[id number] ANNETTE On Hold: 08/17/25 21:12 Protocol Fat Emulsion Intravenous 250 mls @ 20.833 mls/hr 08/15/25 12:00 08/17/25 11:50 Lipids 20% IVPB 20 mls/hr On Hold: 08/17/25 21:13 Q24H ANNETTE Administration Fentanyl Citrate 2,500 mcg in 250 mls @ 10 mls/hr 08/17/25 19:40 08/19/25 06:00 Fentanyl 2,500 Mcg/Ns 250 Ml IV CONT 100 mcg/hr .Q25H ANNETTE 10 mls/hr Protocol Titration 100 MCG/HR Midazolam HCl 100 mg in 100 mls @ 2 mls/hr 08/17/25 19:40 08/19/25 09:04 Versed 100 Mg/Ns 100 Ml IV CONT 2 mg/hr .Q50H ANNETTE 2 mls/hr Protocol Administration 2 MG/HR Micafungin Sodium 100 mg/ 100 mls @ 100 mls/hr 08/18/25 09:20 08/19/25 08:36 Sodium Chloride IVPB 100 mls/hr DAILY ANNETTE Administration Lactated Ringer's 1,000 mls @ 100 mls/hr 08/19/25 08:40 08/19/25 09:16 Lr - Lactated Ringers Iv IV CONT 08/19/25 18:39 100 mls/hr .Q10H ANNETTE Administration Insulin Aspart 1 - 3 units 08/15/25 21:00 08/17/25 20:35 Insulin Aspart (*Bkc) 100 Units/Ml SUB-Q Not Given On Hold: 08/18/25 07:35 HS ANNETTE Protocol Insulin Aspart 3 - 6 units 08/18/25 07:37 08/19/25 08:13 Insulin Aspart (*Bkc) 100 Units/Ml SUB-Q Not Given Q6H [facility] Protocol Losartan Potassium 100 mg 08/11/25 09:00 08/12/25 10:30 Losartan Potassium 100 Mg Tablet PO 100 mg On Hold: 08/12/25 11:48 DAILY ANNETTE Administration Morphine Sulfate 1 mg 08/13/25 18:43 08/17/25 11:48 Morphine Sulfate (*Crx) 4 Mg/Ml Inj IV PUSH 1 mg On Hold: 08/18/25 07:36 Q2H PRN Administration Breakthrough Pain Rated 4-6 or NPO Morphine Sulfate 2 mg 08/13/25 18:43 08/17/25 14:45 Morphine Sulfate (*Crx) 4 Mg/Ml Inj IV PUSH 2 mg On Hold: 08/18/25 07:36 Q2H PRN Administration Breakthrough Pain Rated 7-10 or NPO Multi-Ingred Cream/Lotion/Oil/Oint 1 applic 08/17/25 21:00 08/19/25 08:41 Mineral Oil/White Petrolatum Ointment EACH EYE 1 applic Q12HR ANNETTE Administration Naloxone HCl 0.1 mg 08/10/25 13:04 Naloxone Hcl 0.4 Mg/Ml Vial IV PUSH Q2M PRN Opiate Reversal Ondansetron HCl 4 mg 08/10/25 13:04 Ondansetron Inj 4 Mg/2 Ml Vial IV PUSH Q4H PRN Nausea And Vomiting Oxycodone/Acetaminophen 1 tablet 08/10/25 13:04 08/12/25 10:33 Oxycodone/Acetaminophen (*Crx) 5-325 Mg Tablet PO 1 tablet On Hold: 08/12/25 11:49 Q4H PRN Administration Pain Rated 4-6 Oxycodone/Acetaminophen 1 tab 08/10/25 13:04 08/11/25 15:28 Oxycodone/Acetaminophen (*Crx) 10-325 Mg Tablet PO 1 tab On Hold: 08/12/25 11:49 Q6H PRN Administration Pain Rated 7-10 Sodium Chloride 10 ml 08/15/25 14:00 08/19/25 06:35 Central Line Flush IV PUSH 10 ml Q8HR ANNETTE Administration Sodium Chloride 10 ml 08/15/25 11:41 Central Line Flush IV PUSH PRN PRN with TPN bag changes Sodium Chloride 20 ml 08/15/25 11:41 Central Line Flush IV PUSH PRN PRN after blood draws Tramadol HCl 50 mg 08/10/25 13:04 Tramadol Hcl (*Crx) 50 Mg Tablet PO On Hold: 08/12/25 11:49 Q4H PRN Pain Rated 1-3 Trazodone HCl 50 mg 08/10/25 13:04 Trazodone Hcl 50 Mg Tablet PO On Hold: 08/12/25 11:49 HS PRN Insomnia Umeclidinium/Vilanterol 1 puff 08/10/25 14:00 08/19/25 07:43 Umeclidinium/Vilanterol 62.5-25 Mcg Ellipta INHALATION Not Given DAILY ANNETTE Radiology Results: ITS Impressions Chest CTA 08/13/25 16:42 IMPRESSION: 1. Negative for pulmonary embolism. Bilateral probable pneumonia. 2. Intra-abdominal free air possibly postoperative in nature relatively unchanged compared to the previous exam Abdomen/Pelvis CT 08/15/25 08:38 IMPRESSION: 1. Ileus and/or developing small bowel obstruction. 2. Free intraperitoneal air favoring recent postoperative change. 3. Peritonitis, with scattered ascites and interloop fluid. 4. Worrisome for cystitis, unless recent catheter manipulation. 5. Significant bibasilar atelectasis and/or airspace disease, with small left effusion. Catheter Placement CT 08/16/25 14:04 IMPRESSION: 1. Successful CT-guided right transgluteal abscess drainage. 2. 60 mL fluid was sent for aerobic and anaerobic cultures. 3. The catheter will be managed by Dr. Anderson. Small Bowel X-Ray 08/17/25 13:42 Impression: 1: Incomplete small bowel study with delayed passage of contrast into the distal small bowel. Study terminated due to complications with patient. Proximal small bowel dilated with multiple dilated distal loops of small bowel. Findings compatible with obstruction. Abdomen X-Ray 08/18/25 08:28 Impression: 1. Ileus versus early obstruction. The findings appear relatively unchanged Chest X-Ray 08/19/25 07:52 Impression: 1: Bibasilar airspace disease may represent pneumonia and/or atelectasis. Labs Labs: Laboratory Results - last 24 hr 08/18/25 08/18/25 08/19/25 12:42 17:50 00:46 WBC RBC Hgb Hct MCV MCH MCHC RDW Plt Count MPV Immature Gran % (Auto) Neut % (Auto) Lymph % (Auto) [place] % (Auto) Eos % (Auto) Baso % (Auto) Lymph # (Auto) [place] # (Auto) Eos # (Auto) Baso # (Auto) Abs Immat Gran (auto) Absolute Neuts (auto) Absolute Nucleated RBC Band Neutrophils % Nucleated RBC % Platelet Estimate Clumped Platelets Schistocytes Puncture Site ABG pH ABG pCO2 ABG pO2 ABG PO2/FiO2 Ratio ABG HCO3 ABG O2 Saturation ABG O2 Content ABG Base Excess A-a Gradient Oxyhemoglobin Carboxyhemoglobin Methemoglobin Reduced Hemoglobin Total Hemoglobin O2 Delivery Device O2 Liters/Min Minute Volume Vent Rate Vent Mode FiO2 Tidal Volume PEEP Peak Inspir Pressure Pressure Support Sodium Potassium Chloride Carbon Dioxide Anion Gap BUN Creatinine Estim Creat Clear Calc Estimated GFR Glucose POC Capillary Glucose 100 123 H 113 H Calcium Phosphorus C-Reactive Protein 08/19/25 08/19/25 08/19/25 05:01 05:27 07:38 WBC 15.9 H RBC 3.18 L Hgb 10.5 L Hct 32.7 L MCV 102.8 H MCH 33.0 MCHC 32.1 RDW 14.1 Plt Count 369 MPV 8.1 Immature Gran % (Auto) 4.9 H Neut % (Auto) 68.9 Lymph % (Auto) 12.6 L [place] % (Auto) 8.4 Eos % (Auto) 3.9 Baso % (Auto) 1.3 H Lymph # (Auto) 2.01 [place] # (Auto) 1.3 H Eos # (Auto) 0.6 H Baso # (Auto) 0.2 H Abs Immat Gran (auto) 0.78 H Absolute Neuts (auto) 10.9 H Absolute Nucleated RBC 0.000 Band Neutrophils % Not Reportable Nucleated RBC % 0.0 Platelet Estimate Increased Clumped Platelets Present Schistocytes None seen Puncture Site Left radial ABG pH 7.383 ABG pCO2 41.4 ABG pO2 101.9 H ABG PO2/FiO2 Ratio 2.55 ABG HCO3 24.1 ABG O2 Saturation 97.6 ABG O2 Content 16.8 ABG Base Excess -0.9 A-a Gradient 135.7 Oxyhemoglobin 97.1 Carboxyhemoglobin 0.5 Methemoglobin 0.1 Reduced Hemoglobin 2.3 Total Hemoglobin 12.2 O2 Delivery Device Ventilator O2 Liters/Min Not Reportable Minute Volume Not Reportable Vent Rate 18 Vent Mode Cmv FiO2 40 Tidal Volume 400 PEEP 5 Peak Inspir Pressure Not Reportable Pressure Support Not Reportable Sodium 133 L Potassium 3.9 Chloride 104 Carbon Dioxide 25 Anion Gap 4 BUN 17 Creatinine 1.30 Estim Creat Clear Calc 55 Estimated GFR 56 L Glucose 94 POC Capillary Glucose 91 Calcium 7.9 L Phosphorus 3.6 C-Reactive Protein 24.9 H Quality VTE Prophylaxis VTE prophylaxis: pharmacologic ordered
--- NOTE | 2025-08-19 11:27 | W.PM.PROC2 ---
Procedure Note - Detailed Date of Procedure 08/19/25 Pre-op Diagnosis Enteric injury, sepsis Post-op Diagnosis Same Procedure Performed Second-look laparotomy, abdominal washout Surgeon José Luis Anderson MD Pediatric Nurse Practitioner Rene PEACOCK Anesthesia General Indications Patient had a hand access laparoscopic sigmoidectomy on 08/10/2025. For reasons that were not entirely clear, he had significant amount of pain and appeared to have some pelvic fluid collections most consistent with hematoma. These were percutaneously drained with CT guidance on 08/16/2025. The next day, 08/17/2025, the character of the drainage from the pigtail catheter became enteric. Patient was taken to surgery 08/17/2025. Jejunal perforation was found. This was repaired. Patient is continuing to receive antibiotics. He is taken back to surgery now for 2nd look at the repair and overall laparotomy as well as abdominal washout. Findings Small-bowel repair looked good. The colorectal anastomosis also looked good. There was no evidence of new hematoma or abscess. There was no sign of ischemia or residual enteric content. Description of Procedure Patient was taken from the ICU to the operating room. He had remained intubated in the ICU. His abdominal wound sharon were removed. His left lower quadrant Khanh drain was removed. The abdomen was prepped and draped. The sutures holding the abdominal wound together were carefully removed until all were gone. We then carefully freed the anterior abdominal wall from the underlying omentum and intestine. There were no significant adhesions from the procedure 48 hours ago. The omentum and small intestine were carefully dissected and eviscerated. Irrigation with warm saline was carried out throughout. Any residual blood or fibrin is exudate that could be removed easily was removed. Eventually all the bowel adhesions were freed. I ran the small intestine from the ileocecal valve to the ligament of Treitz. The repairs performed 2 days ago looked great. No sign of leakage. There was no evidence of any other perforations in the small intestine. The dilatation of the bowel that was present 2 days ago was reduced although it was still dilated. I checked thoroughly in the pelvis where the pigtail catheter had been removed on Friday. There was no significant hematoma. I irrigated and suctioned the pelvis thoroughly. The colorectal anastomosis looked just fine. No sign of leakage or inflammation was seen. Any devitalized tissue on the abdominal exploration such as omentum or epiploica were removed. We irrigated out the abdomen again thoroughly before closing. I placed a new 19 Khanh drain in the left lower quadrant and the into the drain reach down into the pelvis. The drain was in a separate puncture site from the drain placed on Friday. This drain was sutured to the skin with 2-0 silk. The bowel content was then laid back in its general anatomic location with the omentum over top. The peritoneum was closed from the lower most aspect of the incision up to the semicircular line. This was done with 0 chromic. The fascia was then closed in bidirectional running fashion with 1. PDS. Subcutaneous interrupted 3-0 Vicryl sutures were then placed. Some subcuticular interrupted 4-0 Vicryl sutures were placed to approximate the umbilical skin. The rest of the wound was closed with wide sharon. The incision was then dressed with Xeroform gauze, fluffs, ABDs, and Medipore tape. Patient was left intubated and transferred directly to the intensive care unit, returning to his previous room. Sponge needle counts were correct x2. Estimated Blood Loss -20 Urine Output 350 Drains Yes (Left lower quadrant Khanh drain) Packing No Pathology None sent Complications None Condition Stable Disposition ICU [facility] Billing Surgery - Charge Forward: Surgery Billing (Second-look laparotomy, abdominal washout)
--- NOTE | 2025-08-19 11:58 | PCNFU ---
Nutrition Follow-Up Complete: Inadequate energy intake related to NPO status and altered GI function as evidenced by current diet orders goal: Meet estimated needs Patient will continue current goal. Pt current nutrition is NPO. Nutrition recommendation: Clinimix E 5/15 at 70 ml/hr, D/C IV fluids. Last recorded weight is 89.9 kg, up from 80.5 kg. Bowel Motility:Last reported BM 08/06 Labs Reviewed:Na 133, Hct 32.7, Hgb 10.5 Meds Noted:NovoLog, Lovenox, Fentanyl, Versed. Skin:WNL Additional Notes: Patient current with mechanical vent. Surgery today- laparotomy. TPN is currently on hold. Surgery plans to restart TPN tomorrow. Current hold orders for Clinimix E 5/15 at 70 ml/hr, which is providing 1693 kcal and 84 gm protein. Meeting 75% kcal needs at 25 kcal/kg and 100% protein needs at 1/0 gm/kg. TPN is adequate. Monitor TPN, wt, labs. Follow up in every Friday and Friday
--- NOTE | 2025-08-19 13:32 | P.PNINT_ITS ---
Progress Note: A&P Assessment and Plan (1) Acute respiratory failure: Code(s): J96.00 - Acute respiratory failure, unspecified whether with hypoxia or hypercapnia Status: Acute Assessment and Plan: Acute respiratory failure likely related to anesthesia and surgery for small bowel perforation on 08/18 -patient currently on CMV mode of ventilation, peep of 5, 50% FiO2, will wean FiO2 to maintain O2 sats > 92% -continue DuoNebs -08/18: Discussed with Dr. Anderson, patient is going for a washout on 08/19, will keep him intubated and on mechanical ventilation today -sedated with fentanyl and Versed infusion, maintain RASS of 0 to -2 -Daily SBT and SAT Patient back from OR, intubated, not on any sedation, discussed with surgery, a extubate if able. Patient has been placed on SBT, will obtain ABGs and evaluate for extubation. (2) Bowel perforation: Code(s): K63.1 - Perforation of intestine (nontraumatic) Status: Acute Assessment and Plan: 08/18: Exploratory laparotomy, small-bowel perforation, adhesiolysis, removal of pigtail catheter drain. 08/17: Patient's pigtail drain had entry contents, small-bowel follow-through with water-soluble contrast was consistent with small-bowel obstruction 08/19: Second-look laparotomy with abdominal washout -discussed with surgery, patient did have a perforation of the jejunum also had enteric contents in the peritoneal cavity -continue Zosyn (08/18) -continue micafungin(08/19) -will start TPN on 08/20 (3) Obstruction of small intestine after surgical procedure: Code(s): K91.30 - Postprocedural intestinal obstruction, unspecified as to partial versus complete Status: Acute Assessment and Plan: As above (4) Intra-abdominal abscess: Code(s): K65.1 - Peritoneal abscess Status: Acute Assessment and Plan: 08/16/2025: Status post percutaneous drainage by Interventional Radiology for pelvic fluid collection status post recent sigmoidectomy (CT-guided right transgluteal abscess drainage catheter placement) (5) Protein-calorie malnutrition, severe: Code(s): E43 - Unspecified severe protein-calorie malnutrition Status: Acute Assessment and Plan: Patient has been on TPN which currently is on hold postoperatively. -will restart TPN on 08/20 (6) Status post colon resection: Code(s): Z90.49 - Acquired absence of other specified parts of digestive tract Status: Acute Assessment and Plan: 08/10/2025: Sigmoidectomy for recurring diverticulitis (7) History of DVT (deep vein thrombosis): Code(s): Z86.718 - Personal history of other venous thrombosis and embolism Status: Acute Assessment and Plan: Patient has been on Xarelto as outpatient which is currently on hold -continue prophylactic Lovenox per surgery (8) Bronchiectasis: Qualifiers: Bronchiectasis type: uncomplicated Qualified Code(s): J47.9 - Bronchi ectasis, uncomplicated Code(s): J47.9 - Bronchiectasis, uncomplicated Status: Chronic Assessment and Plan: In March 2025 but had an abdominal chest x-ray and bronchiectasis on the chest CT. He followed up with Dr. Disla, the pyrotechnician, who did an extensive workup along with a 6 minute walk study which she passed. The pyrotechnician did find past CT scan that showed bronchiectatic changes. Patient was cleared for surgery. Plan DVT prophylaxis: Lovenox SQ Stress ulcer prophylaxis: Famotidine Nutrition: NPO Code Status: Full code Critical Care Time Spent: 33 minutes Discussed with patient's spouse, Tea, updated her with patient's condition and plan of care. I answered all questions Due to a high probability of clinically significant, life threatening deterioration, the patient required my highest level of preparedness to intervene emergently and I personally spent this critical care time directly and personally managing the patient. This critical care time included obtaining a history; examining the patient; pulse oximetry; ordering and review of studies; arranging urgent treatment with development of a management plan; evaluation of patient's response to treatment; frequent reassessment; and discussions with other providers. It was exclusive of separately billable procedures and treating other patients and teaching time. Please see Assessment and Plan section and the rest of the note for further information on patient assessment and treatment This dictation may have been done utilizing a voice recognition system. Attempts have been made to correct errors. However, there may be uncorrected grammatical, spelling, and recognitions errors present. Subjective Date/time seen: 08/19/25 13:32 Interval history: Reason for consult: Perforation status post exploratory laparotomy, repair of small-bowel perforation, adhesiolysis, removal of pigtail catheter drain 08/10/2025: Patient underwent a hand assisted laparoscopic sigmoidectomy with anastomosis and a drain placement 08/17/2025: Underwent an exploratory laparotomy, small-bowel perforation, adhesiolysis, removal of pigtail catheter drain. 08/19/2025: 2nd look laparotomy, abdominal washout 08/19/2025: Patient seen and examined in ICU, remains intubated, on mechanical ventilation peep of 5, 40% FiO2. Patient is sedated with fentanyl and Versed infusion, opens his eyes, follows simple commands in all extremities and nods to questions. Blood pressures have been stable through the night, afebrile, adequate urine output Review of Systems Review of Systems: ROS unobtainable: Yes unobtainable due to endotracheal tube and unobtainable due to medical condition Exam Narrative: General: Intubated, sedated, in no acute distress HEENT:? Pupils equal and reactive, sclera is clear, ETT in place Neck:? Supple Respiratory:? Coarse breath sounds at bases bilaterally, adequate air entry, no wheezing Cardiac:? S1-S2 is normal, regular rate and rhythm Abdomen:? Soft, tender to palpation, nondistended, no bowel sounds were appreciated. Abdominal dressing in place, clean, dry and intact Extremities:? No edema, palpable pedal pulses Neuro:? Patient is intubated on sedation but is awake, nods to questions, follows simple commands in all extremities Skin:? Warm and dry Psych:? Unable to assess at this time Objective Data Vital Signs Vital Signs: Vital Signs - 24 hr 08/18/25 14:00 08/18/25 14:00 08/18/25 14:00 Temperature Pulse Rate 92 92 92 Respiratory Rate 18 18 Blood Pressure Pulse Oximetry Oxygen Delivery Fraction of Inspired Oxygen 08/18/25 14:00 08/18/25 15:00 08/18/25 15:08 Temperature Pulse Rate 92 90 94 Respiratory Rate 18 18 18 Blood Pressure 107/76 106/76 Pulse Oximetry 96 96 Oxygen Delivery Fraction of Inspired Oxygen 08/18/25 15:11 08/18/25 15:15 08/18/25 16:00 Temperature 99.4 F Pulse Rate 94 93 96 Respiratory Rate 18 19 Blood Pressure 106/77 Pulse Oximetry 96 97 Oxygen Delivery Mechanical Ventilation Fraction of Inspired Oxygen 40 08/18/25 16:00 08/18/25 16:00 08/18/25 16:00 Temperature Pulse Rate 96 96 96 Respiratory Rate 19 19 19 Blood Pressure Pulse Oximetry 97 Oxygen Delivery Mechanical Ventilation Fraction of Inspired Oxygen 40 08/18/25 16:00 08/18/25 16:00 08/18/25 17:00 Temperature Pulse Rate 93 99 Respiratory Rate 20 Blood Pressure 107/75 Pulse Oximetry 96 Oxygen Delivery Fraction of Inspired Oxygen 40 08/18/25 17:32 08/18/25 18:00 08/18/25 18:00 Temperature Pulse Rate 99 99 99 Respiratory Rate 18 Blood Pressure 115/74 Pulse Oximetry 96 96 Oxygen Delivery Mechanical Ventilation Fraction of Inspired Oxygen 40 08/18/25 18:00 08/18/25 18:00 08/18/25 19:00 Temperature Pulse Rate 99 99 95 Respiratory Rate 18 18 18 Blood Pressure 114/67 Pulse Oximetry 97 Oxygen Delivery Fraction of Inspired Oxygen 08/18/25 19:15 08/18/25 19:30 08/18/25 19:45 Temperature Pulse Rate 93 93 94 Respiratory Rate 19 18 18 Blood Pressure 112/69 123/71 107/71 Pulse Oximetry 100 98 97 Oxygen Delivery Fraction of Inspired Oxygen 08/18/25 20:00 08/18/25 20:00 08/18/25 20:00 Temperature 99.7 F H Pulse Rate 92 92 92 Respiratory Rate 18 18 18 Blood Pressure 111/71 Pulse Oximetry 98 Oxygen Delivery Fraction of Inspired Oxygen 08/18/25 20:00 08/18/25 20:00 08/18/25 20:00 Temperature Pulse Rate 92 92 Respiratory Rate 18 Blood Pressure Pulse Oximetry 98 Oxygen Delivery Mechanical Ventilation Fraction of Inspired Oxygen 40 40 08/18/25 20:06 08/18/25 20:09 08/18/25 20:15 Temperature Pulse Rate 94 94 95 Respiratory Rate 18 18 Blood Pressure 112/76 Pulse Oximetry 98 98 Oxygen Delivery Mechanical Ventilation Fraction of Inspired Oxygen 40 08/18/25 20:20 08/18/25 20:37 08/18/25 20:37 Temperature Pulse Rate 92 96 96 Respiratory Rate 18 18 18 Blood Pressure Pulse Oximetry Oxygen Delivery Fraction of Inspired Oxygen 08/18/25 21:00 08/18/25 22:00 08/18/25 22:00 Temperature Pulse Rate 91 93 93 Respiratory Rate 18 20 20 Blood Pressure 114/70 Pulse Oximetry 98 Oxygen Delivery Fraction of Inspired Oxygen 08/18/25 22:00 08/18/25 22:00 08/18/25 22:03 Temperature Pulse Rate 93 93 94 Respiratory Rate 20 Blood Pressure 122/77 Pulse Oximetry 97 98 Oxygen Delivery Mechanical Ventilation Fraction of Inspired Oxygen 40 08/18/25 22:44 08/18/25 22:45 08/18/25 23:00 Temperature Pulse Rate 107 H 107 H 104 H Respiratory Rate 20 20 14 Blood Pressure 131/84 123/76 Pulse Oximetry 95 96 Oxygen Delivery Fraction of Inspired Oxygen 08/19/25 00:00 08/19/25 00:00 08/19/25 00:00 Temperature 98.8 F Pulse Rate 97 97 97 Respiratory Rate 18 18 18 Blood Pressure 102/65 Pulse Oximetry 96 Oxygen Delivery Fraction of Inspired Oxygen 08/19/25 00:00 08/19/25 00:00 08/19/25 00:00 Temperature Pulse Rate 97 91 Respiratory Rate 18 Blood Pressure Pulse Oximetry 96 Oxygen Delivery Mechanical Ventilation Fraction of Inspired Oxygen 40 40 08/19/25 01:00 08/19/25 01:55 08/19/25 01:59 Temperature Pulse Rate 89 88 88 Respiratory Rate 18 18 Blood Pressure 106/66 Pulse Oximetry 97 99 Oxygen Delivery Mechanical Ventilation Fraction of Inspired Oxygen 08/19/25 02:00 08/19/25 02:00 08/19/25 02:00 Temperature Pulse Rate 89 89 88 Respiratory Rate 18 18 Blood Pressure 118/69 Pulse Oximetry 98 Oxygen Delivery Fraction of Inspired Oxygen 08/19/25 02:00 08/19/25 02:11 08/19/25 03:00 Temperature Pulse Rate 88 88 87 Respiratory Rate 18 18 18 Blood Pressure 108/72 Pulse Oximetry 97 Oxygen Delivery Fraction of Inspired Oxygen 08/19/25 04:00 08/19/25 04:00 08/19/25 04:00 Temperature Pulse Rate 89 89 89 Respiratory Rate 18 19 19 Blood Pressure Pulse Oximetry 98 Oxygen Delivery Mechanical Ventilation Fraction of Inspired Oxygen 40 08/19/25 04:00 08/19/25 04:00 08/19/25 04:00 Temperature 98.8 F Pulse Rate 89 89 Respiratory Rate 19 Blood Pressure 111/70 Pulse Oximetry 98 Oxygen Delivery Fraction of Inspired Oxygen 40 08/19/25 05:00 08/19/25 05:35 08/19/25 06:00 Temperature Pulse Rate 87 104 H 90 Respiratory Rate 18 22 H Blood Pressure 112/72 Pulse Oximetry 98 99 Oxygen Delivery Mechanical Ventilation Fraction of Inspired Oxygen 08/19/25 06:00 08/19/25 06:00 08/19/25 06:00 Temperature Pulse Rate 90 90 90 Respiratory Rate 22 H 22 H Blood Pressure 123/74 Pulse Oximetry 98 Oxygen Delivery Fraction of Inspired Oxygen 08/19/25 06:28 08/19/25 07:00 08/19/25 08:00 Temperature Pulse Rate 90 88 87 Respiratory Rate 21 H 19 18 Blood Pressure 121/71 109/65 Pulse Oximetry 99 99 Oxygen Delivery Fraction of Inspired Oxygen 08/19/25 08:00 08/19/25 08:00 08/19/25 08:00 Temperature Pulse Rate 88 Respiratory Rate Blood Pressure Pulse Oximetry Oxygen Delivery Mechanical Ventilation Fraction of Inspired Oxygen 40 40 08/19/25 08:00 08/19/25 09:00 08/19/25 09:04 Temperature Pulse Rate 87 91 Respiratory Rate 18 18 Blood Pressure 125/67 Pulse Oximetry Oxygen Delivery Fraction of Inspired Oxygen 08/19/25 09:04 08/19/25 11:21 08/19/25 11:39 Temperature 97.0 F L Pulse Rate 91 100 103 H Respiratory Rate 18 Blood Pressure 147/86 H Pulse Oximetry 98 Oxygen Delivery Fraction of Inspired Oxygen 08/19/25 12:00 08/19/25 12:00 08/19/25 12:36 Temperature Pulse Rate 102 H 101 H Respiratory Rate 23 H 25 H Blood Pressure 152/91 H Pulse Oximetry 99 Oxygen Delivery Mechanical Ventilation Fraction of Inspired Oxygen 40 08/19/25 12:43 08/19/25 12:44 08/19/25 13:00 Temperature 98.9 F Pulse Rate 101 H 104 H Respiratory Rate 20 Blood Pressure 135/76 Pulse Oximetry 99 Oxygen Delivery Fraction of Inspired Oxygen 40 Intake/Output Intake/Output: Intake & Output 08/16/25 08/17/25 08/18/25 08/19/25 23:59 23:59 23:59 23:59 Intake Total 3474.7 4742.0 1895.1 486.2 Output Total 2125 2500 1140 1160 Balance 1349.7 2242.0 755.1 -673.8 Meds/Results Medications: Active Medications Generic Name Dose Route Start Last Admin Trade Name Freq PRN Reason Stop Dose Admin Albuterol/Ipratropium 3 ml 08/18/25 14:00 08/19/25 07:34 Ipratropium 0.5 Mg/Albuterol Sulfate 2.5 Mg (Base) Ampul.Neb 3 Ml INHALATION 3 ml Q6HRT ANNETTE Administration Dextrose 12.5 gm 08/15/25 07:56 Dextrose 50% 25 Gm/50 Ml Syringe IV PUSH PRN PRN Hypoglycemia Protocol Enoxaparin Sodium 40 mg 08/11/25 09:00 08/19/25 09:03 Enoxaparin 40 Mg/0.4 Ml Syringe SUB-Q Not Given DAILY ANNETTE Famotidine 20 mg 08/10/25 21:00 08/19/25 08:41 Famotidine 20 Mg/2 Ml Vial IV PUSH 20 mg Q12HR ANNETTE Administration Glucagon 1 mg 08/15/25 07:56 Glucagon For Inj 1 Mg Vial IM PRN PRN Hypoglycemia Protocol Glucose 15 gm 08/15/25 07:56 Glucose Oral Gel 15 Gm Of Glucse In 37.5 Gm Tube PO PRN PRN Hypoglycemia Protocol Hydrochlorothiazide 12.5 mg 08/11/25 09:00 08/12/25 10:31 Hydrochlorothiazide 12.5 Mg Capsule PO 12.5 mg On Hold: 08/12/25 11:48 QAM ANNETTE Administration Ibuprofen 800 mg in 200 mls @ 400 mls/hr 08/10/25 13:04 Caldolor 800 Mg/200 Ml IVPB Q6H PRN Breakthrough Pain Rated 1-3 or NPO Piperacillin Sod/Tazobactam 50 mls @ 100 mls/hr 08/12/25 12:00 08/19/25 13:27 Sod 3.375 gm/ Sodium Chloride IVPB Infused Q6H ANNETTE Infusion Dextrose 1,000 mls @ 50 mls/hr 08/15/25 07:56 Dextrose 10% IV CONT .Q20H PRN if PN is interrupted Dextrose 1,000 mls @ 100 mls/hr 08/15/25 07:56 Dextrose 5% 1,000 Ml IVPB PRN PRN Hypoglycemia Protocol Multivitamins 1.25 ml/ 1,002.5 mls @ 70 mls/hr 08/15/25 12:00 08/17/25 23:05 Multivitamins 1.25 ml/ Amino IV CONT Not Given Acids/Electrolytes/Dextrose .[id number] ANNETTE On Hold: 08/17/25 21:12 Protocol Fat Emulsion Intravenous 250 mls @ 20.833 mls/hr 08/15/25 12:00 08/17/25 11:50 Lipids 20% IVPB 20 mls/hr On Hold: 08/17/25 21:13 Q24H ANNETTE Administration Fentanyl Citrate 2,500 mcg in 250 mls @ 10 mls/hr 08/17/25 19:40 08/19/25 12:00 Fentanyl 2,500 Mcg/Ns 250 Ml IV CONT 0 mcg/hr .Q25H ANNETTE 0 mls/hr Protocol Titration 100 MCG/HR Midazolam HCl 100 mg in 100 mls @ 2 mls/hr 08/17/25 19:40 08/19/25 09:04 Versed 100 Mg/Ns 100 Ml IV CONT 2 mg/hr .Q50H ANNETTE 2 mls/hr Protocol Administration 2 MG/HR Micafungin Sodium 100 mg/ 100 mls @ 100 mls/hr 08/18/25 09:20 08/19/25 08:36 Sodium Chloride IVPB 100 mls/hr DAILY ANNETTE Administration Lactated Ringer's 1,000 mls @ 100 mls/hr 08/19/25 08:40 08/19/25 09:16 Lr - Lactated Ringers Iv IV CONT 08/19/25 18:39 100 mls/hr .Q10H ANNETTE Administration Insulin Aspart 3 - 6 units 08/19/25 12:00 08/19/25 12:21 Insulin Aspart (*Bkc) 100 Units/Ml SUB-Q Not Given Q6HR [facility] Protocol Losartan Potassium 100 mg 08/11/25 09:00 08/12/25 10:30 Losartan Potassium 100 Mg Tablet PO 100 mg On Hold: 08/12/25 11:48 DAILY ANNETTE Administration Morphine Sulfate 1 mg 08/13/25 18:43 08/17/25 11:48 Morphine Sulfate (*Crx) 4 Mg/Ml Inj IV PUSH 1 mg On Hold: 08/18/25 07:36 Q2H PRN Administration Breakthrough Pain Rated 4-6 or NPO Morphine Sulfate 2 mg 08/13/25 18:43 08/17/25 14:45 Morphine Sulfate (*Crx) 4 Mg/Ml Inj IV PUSH 2 mg On Hold: 08/18/25 07:36 Q2H PRN Administration Breakthrough Pain Rated 7-10 or NPO Multi-Ingred Cream/Lotion/Oil/Oint 1 applic 08/17/25 21:00 08/19/25 08:41 Mineral Oil/White Petrolatum Ointment EACH EYE 1 applic Q12HR ANNETTE Administration Naloxone HCl 0.1 mg 08/10/25 13:04 Naloxone Hcl 0.4 Mg/Ml Vial IV PUSH Q2M PRN Opiate Reversal Ondansetron HCl 4 mg 08/10/25 13:04 Ondansetron Inj 4 Mg/2 Ml Vial IV PUSH Q4H PRN Nausea And Vomiting Oxycodone/Acetaminophen 1 tablet 08/10/25 13:04 08/12/25 10:33 Oxycodone/Acetaminophen (*Crx) 5-325 Mg Tablet PO 1 tablet On Hold: 08/12/25 11:49 Q4H PRN Administration Pain Rated 4-6 Oxycodone/Acetaminophen 1 tab 08/10/25 13:04 08/11/25 15:28 Oxycodone/Acetaminophen (*Crx) 10-325 Mg Tablet PO 1 tab On Hold: 08/12/25 11:49 Q6H PRN Administration Pain Rated 7-10 Sodium Chloride 10 ml 08/15/25 14:00 08/19/25 06:35 Central Line Flush IV PUSH 10 ml Q8HR ANNETTE Administration Sodium Chloride 10 ml 08/15/25 11:41 Central Line Flush IV PUSH PRN PRN with TPN bag changes Sodium Chloride 20 ml 08/15/25 11:41 Central Line Flush IV PUSH PRN PRN after blood draws Tramadol HCl 50 mg 08/10/25 13:04 Tramadol Hcl (*Crx) 50 Mg Tablet PO On Hold: 08/12/25 11:49 Q4H PRN Pain Rated 1-3 Trazodone HCl 50 mg 08/10/25 13:04 Trazodone Hcl 50 Mg Tablet PO On Hold: 08/12/25 11:49 HS PRN Insomnia Umeclidinium/Vilanterol 1 puff 08/10/25 14:00 08/19/25 07:43 Umeclidinium/Vilanterol 62.5-25 Mcg Ellipta INHALATION Not Given DAILY [facility] Radiology Results: ITS Impressions Chest CTA 08/13/25 16:42 IMPRESSION: 1. Negative for pulmonary embolism. Bilateral probable pneumonia. 2. Intra-abdominal free air possibly postoperative in nature relatively unchanged compared to the previous exam Abdomen/Pelvis CT 08/15/25 08:38 IMPRESSION: 1. Ileus and/or developing small bowel obstruction. 2. Free intraperitoneal air favoring recent postoperative change. 3. Peritonitis, with scattered ascites and interloop fluid. 4. Worrisome for cystitis, unless recent catheter manipulation. 5. Significant bibasilar atelectasis and/or airspace disease, with small left effusion. Catheter Placement CT 08/16/25 14:04 IMPRESSION: 1. Successful CT-guided right transgluteal abscess drainage. 2. 60 mL fluid was sent for aerobic and anaerobic cultures. 3. The catheter will be managed by Dr. Anderson. Small Bowel X-Ray 08/17/25 13:42 Impression: 1: Incomplete small bowel study with delayed passage of contrast into the distal small bowel. Study terminated due to complications with patient. Proximal small bowel dilated with multiple dilated distal loops of small bowel. Findings compatible with obstruction. Abdomen X-Ray 08/18/25 08:28 Impression: 1. Ileus versus early obstruction. The findings appear relatively unchanged Chest X-Ray 08/19/25 07:52 Impression: 1: Bibasilar airspace disease may represent pneumonia and/or atelectasis. Labs Labs: Laboratory Results - last 24 hr 08/18/25 08/19/25 08/19/25 17:50 00:46 05:01 WBC 15.9 H RBC 3.18 L Hgb 10.5 L Hct 32.7 L MCV 102.8 H MCH 33.0 MCHC 32.1 RDW 14.1 Plt Count 369 MPV 8.1 Immature Gran % (Auto) 4.9 H Neut % (Auto) 68.9 Lymph % (Auto) 12.6 L [place] % (Auto) 8.4 Eos % (Auto) 3.9 Baso % (Auto) 1.3 H Lymph # (Auto) 2.01 [place] # (Auto) 1.3 H Eos # (Auto) 0.6 H Baso # (Auto) 0.2 H Abs Immat Gran (auto) 0.78 H Absolute Neuts (auto) 10.9 H Absolute Nucleated RBC 0.000 Band Neutrophils % Not Reportable Nucleated RBC % 0.0 Platelet Estimate Increased Clumped Platelets Present Schistocytes None seen Puncture Site ABG pH ABG pCO2 ABG pO2 ABG PO2/FiO2 Ratio ABG HCO3 ABG O2 Saturation ABG O2 Content ABG Base Excess A-a Gradient Oxyhemoglobin Carboxyhemoglobin Methemoglobin Reduced Hemoglobin Total Hemoglobin O2 Delivery Device O2 Liters/Min Minute Volume Vent Rate Vent Mode FiO2 Tidal Volume PEEP Peak Inspir Pressure Pressure Support Sodium 133 L Potassium 3.9 Chloride 104 Carbon Dioxide 25 Anion Gap 4 BUN 17 Creatinine 1.30 Estim Creat Clear Calc 55 Estimated GFR 56 L Glucose 94 POC Capillary Glucose 123 H 113 H Calcium 7.9 L Phosphorus 3.6 C-Reactive Protein 24.9 H 08/19/25 08/19/25 08/19/25 05:27 07:38 12:13 WBC RBC Hgb Hct MCV MCH MCHC RDW Plt Count MPV Immature Gran % (Auto) Neut % (Auto) Lymph % (Auto) [place] % (Auto) Eos % (Auto) Baso % (Auto) Lymph # (Auto) [place] # (Auto) Eos # (Auto) Baso # (Auto) Abs Immat Gran (auto) Absolute Neuts (auto) Absolute Nucleated RBC Band Neutrophils % Nucleated RBC % Platelet Estimate Clumped Platelets Schistocytes Puncture Site Left radial ABG pH 7.383 ABG pCO2 41.4 ABG pO2 101.9 H ABG PO2/FiO2 Ratio 2.55 ABG HCO3 24.1 ABG O2 Saturation 97.6 ABG O2 Content 16.8 ABG Base Excess -0.9 A-a Gradient 135.7 Oxyhemoglobin 97.1 Carboxyhemoglobin 0.5 Methemoglobin 0.1 Reduced Hemoglobin 2.3 Total Hemoglobin 12.2 O2 Delivery Device Ventilator O2 Liters/Min Not Reportable Minute Volume Not Reportable Vent Rate 18 Vent Mode Cmv FiO2 40 Tidal Volume 400 PEEP 5 Peak Inspir Pressure Not Reportable Pressure Support Not Reportable Sodium Potassium Chloride Carbon Dioxide Anion Gap BUN Creatinine Estim Creat Clear Calc Estimated GFR Glucose POC Capillary Glucose 91 98 Calcium Phosphorus C-Reactive Protein Quality VTE Prophylaxis VTE prophylaxis: pharmacologic ordered
[2025-08-19 13:50] LABS: Alveolar/Arterial O2 Gradient 158.0 mmHg; Fractional Inspired Oxygen 40 %; HCO3 ABG 21.5 mEq/l (22.0-26.0); Oxygen Content ABG 17.4 %vol (16.0-22.0); Oxygen Saturation ABG 96.6 % (95.0-100.0); PCO2 ABG 35.4 mmHg (35.0-45.0); PO2 ABG 86.5 mmHg (80.0-100.0); PO2 FiO2 Ratio Arterial Blood 2.16 %
[2025-08-19 14:37] LABS: Modified Allen's Test Pass; Site Drawn LEFT RADIAL
[2025-08-19 14:38] LABS: Peak Inspiratory Pressure 8 cmH2O
[2025-08-19 14:39] LABS: Arterial Blood Gas Minute Volume 8.1 LPM; Arterial Blood Gas Tidal Volume 663 ml
[2025-08-19] MEDS: fentaNYL CITRATE INJ (*CRX) 100 MCG/2 ML VIAL 25 MCG IV PUSH ×4 (14:41→22:00)
--- NOTE | 2025-08-19 17:31 | PC.NURSE ---
PT complaints of abdominal pain after adjusting in bed and bed bath, HR [address] Alvarado who gave order to increase frequency to q2h prn. Order read back and verified.
[2025-08-19] MEDS: IBUPROFEN IV 800 MG/200 ML 800 MG/200 ML BAG 400 MG IVPB (22:44)
[2025-08-20] VITALS (29 sets, daily range): BP systolic 124–155; BP diastolic 71–86; PULSE 62–103; RESP 12–26; TEMP 36.7–36.9; O2SAT 94–98
[2025-08-20] MEDS: IPRATROPIUM 0.5 MG/ALBUTEROL SULFATE 2.5 MG (BASE) AMPUL.NEB 3 ML INHALATION ×3 (02:08→13:10)
[2025-08-20] MEDS: fentaNYL CITRATE INJ (*CRX) 100 MCG/2 ML VIAL 25 MCG IV PUSH ×6 (02:54→23:39)
[2025-08-20] MEDS: PIPERACILLIN/TAZOBACTAM SOD 3.375 GM in SODIUM CHLORIDE 0.9% IV 50 ML 100 ML IVPB ×4 (05:29→23:38)
[2025-08-20] MEDS: CENTRAL LINE FLUSH 10 ML IV PUSH ×3 (05:30→21:50)
[2025-08-20 05:44] LABS: Hematocrit 36.4 % (42.0-52.0); Hemoglobin 11.7 g/dL (14.0-18.0); Mean Corpuscular HGB Conc 32.1 g/dl (32-36); Mean Corpuscular Hemoglobin 33.1 pg (26-34); Mean Corpuscular Volume 103.1 fl (80-100); Platelet Count Result 507 k/mm3 (150-375); Red Blood Count 3.53 M/mm3 (4.6-6.20); White Blood Count 19.4 K/mm3 (4.5-10.0)
[2025-08-20 06:06] LABS: Anion Gap 7 mmol/L (4-12); Blood Urea Nitrogen 14 mg/dL (9-20); Calcium 8.1 mg/dL (8.4-10.2); Carbon Dioxide 25 mmol/L (22-30); Chloride 105 mmol/L (98-107); Estimated CRCL calculation 59 ml/min; Estimated Glomerular Filt Rate > 60; Glucose 108 mg/dL (65-110); Potassium 4.0 mmol/L (3.4-5.0); Sodium 137 mmol/L (137-145); Triglycerides 187 mg/dL (<150)
[2025-08-20 06:45] LABS: CRP 28.8 mg/dL (<1.0)
[2025-08-20] MEDS: UMECLIDINIUM/VILANTEROL 62.5-25 MCG ELLIPTA 1 PUFF INHALATION (08:04)
[2025-08-20] MEDS: ENOXAPARIN 40 MG/0.4 ML SYRINGE SUB-Q (08:35)
[2025-08-20] MEDS: FAMOTIDINE 20 MG/2 ML VIAL IV PUSH ×2 (08:35→20:15)
[2025-08-20] MEDS: IBUPROFEN IV 800 MG/200 ML 800 MG/200 ML BAG 400 MG IVPB (08:45)
[2025-08-20] MEDS: MICAFUNGIN SODIUM 100 MG in SODIUM CHLORIDE 0.9% IV 100 ML IVPB (09:19)
--- NOTE | 2025-08-20 10:55 | PM.PNGS ---
Progress Note: A&P Assessment and Plan (1) Bowel perforation: Code(s): K63.1 - Perforation of intestine (nontraumatic) Status: Acute Assessment and Plan: doing well, continue routine postoperative care, will start trickle feeds through NG tube, okay to transfer to floor Subjective Subjective Date/Time Seen: 08/20/25 10:55 Interval history: doing well this morning, complaining of incisional soreness Review of Systems Review of Systems: All systems reviewed & are unremarkable except as noted in HPI and below Exam Const: General: cooperative, comfortable and no acute distress Resp: Auscultation: clear to auscultation bilaterally Cardio: Rate: regular rate Rhythm: regular rhythm GI: Inspection: normal to inspection, distended and incision GI Palp: Yes abdominal tenderness and Yes Soft to palpation Other: MERON with minimal sanguinous output Neuro: General: patient oriented x3 and CN's II-XI intact bilaterally Objective Data Vital Signs Vital Signs: Vital Signs - 24 hr 08/19/25 11:15 08/19/25 11:21 08/19/25 11:39 Temperature 36.1 C L Pulse Rate 108 H 100 103 H Respiratory Rate Blood Pressure 147/86 H Pulse Oximetry 99 98 Oxygen Delivery Mechanical Ventilation Oxygen Flow Rate Fraction of Inspired Oxygen 40 08/19/25 12:00 08/19/25 12:00 08/19/25 12:00 Temperature Pulse Rate 102 H 101 H 101 H Respiratory Rate 23 H 25 H 18 Blood Pressure 152/91 H Pulse Oximetry 99 Oxygen Delivery Oxygen Flow Rate Fraction of Inspired Oxygen 08/19/25 12:26 08/19/25 12:36 08/19/25 12:43 Temperature Pulse Rate 105 H Respiratory Rate Blood Pressure Pulse Oximetry 99 Oxygen Delivery Mechanical Ventilation Mechanical Ventilation Oxygen Flow Rate Fraction of Inspired Oxygen 40 40 40 08/19/25 12:44 08/19/25 13:00 08/19/25 13:50 Temperature 37.2 C Pulse Rate 101 H 104 H 103 H Respiratory Rate 20 Blood Pressure 135/76 Pulse Oximetry 99 100 Oxygen Delivery Oxygen Flow Rate Fraction of Inspired Oxygen 08/19/25 14:00 08/19/25 14:00 08/19/25 14:00 Temperature Pulse Rate 109 H 105 H 105 H Respiratory Rate 25 H 24 H Blood Pressure Pulse Oximetry Oxygen Delivery Oxygen Flow Rate Fraction of Inspired Oxygen 08/19/25 14:00 08/19/25 14:00 08/19/25 14:41 Temperature Pulse Rate 105 H 104 H Respiratory Rate 18 24 H Blood Pressure 141/82 H Pulse Oximetry 98 99 Oxygen Delivery Nasal Cannula Oxygen Flow Rate 2 Fraction of Inspired Oxygen 08/19/25 15:00 08/19/25 16:00 08/19/25 16:00 Temperature Pulse Rate 106 H 110 H Respiratory Rate 22 H Blood Pressure 147/83 H Pulse Oximetry 100 98 Oxygen Delivery Nasal Cannula Oxygen Flow Rate 2 Fraction of Inspired Oxygen 08/19/25 16:00 08/19/25 17:00 08/19/25 18:00 Temperature 36.6 C Pulse Rate 109 H 112 H 109 H Respiratory Rate 20 23 H 19 Blood Pressure 128/81 138/83 138/79 Pulse Oximetry 98 99 98 Oxygen Delivery Oxygen Flow Rate Fraction of Inspired Oxygen 08/19/25 18:00 08/19/25 19:00 08/19/25 20:00 Temperature 36.9 C Pulse Rate 111 H 109 H 110 H Respiratory Rate 28 H 29 H Blood Pressure 138/79 148/89 H Pulse Oximetry 96 98 Oxygen Delivery Oxygen Flow Rate Fraction of Inspired Oxygen 08/19/25 20:00 08/19/25 20:40 08/19/25 21:00 Temperature Pulse Rate 110 H 110 H 113 H Respiratory Rate 29 H 30 H Blood Pressure 151/87 H Pulse Oximetry 98 95 Oxygen Delivery Nasal Cannula Oxygen Flow Rate 2 Fraction of Inspired Oxygen 08/19/25 21:19 08/19/25 21:20 08/19/25 21:25 Temperature Pulse Rate 107 H 109 H Respiratory Rate 16 16 Blood Pressure Pulse Oximetry 96 Oxygen Delivery Nasal Cannula Oxygen Flow Rate 2 Fraction of Inspired Oxygen 08/19/25 22:00 08/19/25 22:00 08/19/25 23:00 Temperature 36.8 C Pulse Rate 113 H 108 H 112 H Respiratory Rate 25 H 21 H Blood Pressure 156/80 H 140/96 H Pulse Oximetry 98 96 Oxygen Delivery Oxygen Flow Rate Fraction of Inspired Oxygen 08/20/25 00:00 08/20/25 00:00 08/20/25 00:12 Temperature 36.9 C Pulse Rate 93 93 93 Respiratory Rate 16 16 Blood Pressure 142/71 H Pulse Oximetry 95 95 Oxygen Delivery Nasal Cannula Oxygen Flow Rate 2 Fraction of Inspired Oxygen 08/20/25 01:00 08/20/25 02:00 08/20/25 02:00 Temperature Pulse Rate 89 92 92 Respiratory Rate 16 17 Blood Pressure 132/82 124/77 Pulse Oximetry 96 97 Oxygen Delivery Oxygen Flow Rate Fraction of Inspired Oxygen 08/20/25 02:10 08/20/25 02:15 08/20/25 03:00 Temperature Pulse Rate 91 93 94 Respiratory Rate 18 18 15 Blood Pressure 128/74 Pulse Oximetry 95 Oxygen Delivery Oxygen Flow Rate Fraction of Inspired Oxygen 08/20/25 04:00 08/20/25 04:00 08/20/25 04:00 Temperature 36.7 C Pulse Rate 93 93 93 Respiratory Rate 13 13 Blood Pressure 129/78 Pulse Oximetry 96 96 Oxygen Delivery Nasal Cannula Oxygen Flow Rate 2 Fraction of Inspired Oxygen 08/20/25 05:00 08/20/25 06:00 08/20/25 06:00 Temperature Pulse Rate 92 97 97 Respiratory Rate 16 26 H Blood Pressure 134/81 142/78 H Pulse Oximetry 97 98 Oxygen Delivery Oxygen Flow Rate Fraction of Inspired Oxygen 08/20/25 07:00 08/20/25 08:07 08/20/25 08:07 Temperature Pulse Rate 91 94 Respiratory Rate 15 20 Blood Pressure 142/80 H Pulse Oximetry 98 98 Oxygen Delivery Nasal Cannula Oxygen Flow Rate 2 Fraction of Inspired Oxygen 08/20/25 08:15 Temperature Pulse Rate 99 Respiratory Rate 25 H Blood Pressure Pulse Oximetry Oxygen Delivery Oxygen Flow Rate Fraction of Inspired Oxygen Intake/Output Intake/Output: Intake & Output 08/17/25 08/18/25 08/19/25 08/20/25 23:59 23:59 23:59 23:59 Intake Total 4742.0 1895.1 892.1 400 Output Total 2500 1140 2825 1110 Balance 2242.0 755.1 -1932.9 -710 Meds/Results Medications: Active Medications Generic Name Dose Route Start Last Admin Trade Name Freq PRN Reason Stop Dose Admin Albuterol/Ipratropium 3 ml 08/18/25 14:00 08/20/25 08:04 Ipratropium 0.5 Mg/Albuterol Sulfate 2.5 Mg (Base) Ampul.Neb 3 Ml INHALATION 3 ml Q6HRT ANNETTE Administration Dextrose 12.5 gm 08/15/25 07:56 Dextrose 50% 25 Gm/50 Ml Syringe IV PUSH PRN PRN Hypoglycemia Protocol Enoxaparin Sodium 40 mg 08/11/25 09:00 08/20/25 08:35 Enoxaparin 40 Mg/0.4 Ml Syringe SUB-Q 40 mg DAILY ANNETTE Administration Famotidine 20 mg 08/10/25 21:00 08/20/25 08:35 Famotidine 20 Mg/2 Ml Vial IV PUSH 20 mg Q12HR ANNETTE Administration Fentanyl Citrate 25 mcg 08/19/25 17:31 08/20/25 02:54 Fentanyl Citrate Inj (*Crx) 100 Mcg/2 Ml Vial IV PUSH 25 mcg Q2H PRN Administration Pain Rated 7-10 Glucagon 1 mg 08/15/25 07:56 Glucagon For Inj 1 Mg Vial IM PRN PRN Hypoglycemia Protocol Glucose 15 gm 08/15/25 07:56 Glucose Oral Gel 15 Gm Of Glucse In 37.5 Gm Tube PO PRN PRN Hypoglycemia Protocol Hydrochlorothiazide 12.5 mg 08/11/25 09:00 08/12/25 10:31 Hydrochlorothiazide 12.5 Mg Capsule PO 12.5 mg On Hold: 08/12/25 11:48 QAM ANNETTE Administration Ibuprofen 800 mg in 200 mls @ 400 mls/hr 08/10/25 13:04 08/20/25 08:45 Caldolor 800 Mg/200 Ml IVPB 400 mls/hr Q6H PRN Administration Breakthrough Pain Rated 1-3 or NPO Piperacillin Sod/Tazobactam 50 mls @ 100 mls/hr 08/12/25 12:00 08/20/25 05:29 Sod 3.375 gm/ Sodium Chloride IVPB 100 mls/hr Q6H ANNETTE Administration Dextrose 1,000 mls @ 50 mls/hr 08/15/25 07:56 Dextrose 10% IV CONT .Q20H PRN if PN is interrupted Dextrose 1,000 mls @ 100 mls/hr 08/15/25 07:56 Dextrose 5% 1,000 Ml IVPB PRN PRN Hypoglycemia Protocol Multivitamins 1.25 ml/ 1,002.5 mls @ 70 mls/hr 08/15/25 12:00 08/17/25 23:05 Multivitamins 1.25 ml/ Amino IV CONT Not Given Acids/Electrolytes/Dextrose .[id number] ANNETTE On Hold: 08/17/25 21:12 Protocol Fat Emulsion Intravenous 250 mls @ 20.833 mls/hr 08/15/25 12:00 08/17/25 11:50 Lipids 20% IVPB 20 mls/hr On Hold: 08/17/25 21:13 Q24H ANNETTE Administration Micafungin Sodium 100 mg/ 100 mls @ 100 mls/hr 08/18/25 09:20 08/20/25 09:19 Sodium Chloride IVPB 100 mls/hr DAILY ANNETTE Administration Insulin Aspart 3 - 6 units 08/19/25 12:00 08/20/25 06:08 Insulin Aspart (*Bkc) 100 Units/Ml SUB-Q Not Given Q6HR [facility] Protocol Losartan Potassium 100 mg 08/11/25 09:00 08/12/25 10:30 Losartan Potassium 100 Mg Tablet PO 100 mg On Hold: 08/12/25 11:48 DAILY ANNETTE Administration Morphine Sulfate 1 mg 08/13/25 18:43 08/17/25 11:48 Morphine Sulfate (*Crx) 4 Mg/Ml Inj IV PUSH 1 mg On Hold: 08/18/25 07:36 Q2H PRN Administration Breakthrough Pain Rated 4-6 or NPO Morphine Sulfate 2 mg 08/13/25 18:43 08/17/25 14:45 Morphine Sulfate (*Crx) 4 Mg/Ml Inj IV PUSH 2 mg On Hold: 08/18/25 07:36 Q2H PRN Administration Breakthrough Pain Rated 7-10 or NPO Multi-Ingred Cream/Lotion/Oil/Oint 1 applic 08/17/25 21:00 08/20/25 08:36 Mineral Oil/White Petrolatum Ointment EACH EYE Not Given Q12HR [facility] Naloxone HCl 0.1 mg 08/10/25 13:04 Naloxone Hcl 0.4 Mg/Ml Vial IV PUSH Q2M PRN Opiate Reversal Ondansetron HCl 4 mg 08/10/25 13:04 Ondansetron Inj 4 Mg/2 Ml Vial IV PUSH Q4H PRN Nausea And Vomiting Oxycodone/Acetaminophen 1 tablet 08/10/25 13:04 08/12/25 10:33 Oxycodone/Acetaminophen (*Crx) 5-325 Mg Tablet PO 1 tablet On Hold: 08/12/25 11:49 Q4H PRN Administration Pain Rated 4-6 Oxycodone/Acetaminophen 1 tab 08/10/25 13:04 08/11/25 15:28 Oxycodone/Acetaminophen (*Crx) 10-325 Mg Tablet PO 1 tab On Hold: 08/12/25 11:49 Q6H PRN Administration Pain Rated 7-10 Sodium Chloride 10 ml 08/15/25 14:00 08/20/25 05:30 Central Line Flush IV PUSH 10 ml Q8HR ANNETTE Administration Sodium Chloride 10 ml 08/15/25 11:41 Central Line Flush IV PUSH PRN PRN with TPN bag changes Sodium Chloride 20 ml 08/15/25 11:41 Central Line Flush IV PUSH PRN PRN after blood draws Tramadol HCl 50 mg 08/10/25 13:04 Tramadol Hcl (*Crx) 50 Mg Tablet PO On Hold: 08/12/25 11:49 Q4H PRN Pain Rated 1-3 Trazodone HCl 50 mg 08/10/25 13:04 Trazodone Hcl 50 Mg Tablet PO On Hold: 08/12/25 11:49 HS PRN Insomnia Umeclidinium/Vilanterol 1 puff 08/10/25 14:00 08/20/25 08:04 Umeclidinium/Vilanterol 62.5-25 Mcg Ellipta INHALATION 1 puff DAILY ANNETTE Administration Radiology Results: ITS Impressions Chest CTA 08/13/25 16:42 IMPRESSION: 1. Negative for pulmonary embolism. Bilateral probable pneumonia. 2. Intra-abdominal free air possibly postoperative in nature relatively unchanged compared to the previous exam Abdomen/Pelvis CT 08/15/25 08:38 IMPRESSION: 1. Ileus and/or developing small bowel obstruction. 2. Free intraperitoneal air favoring recent postoperative change. 3. Peritonitis, with scattered ascites and interloop fluid. 4. Worrisome for cystitis, unless recent catheter manipulation. 5. Significant bibasilar atelectasis and/or airspace disease, with small left effusion. Catheter Placement CT 08/16/25 14:04 IMPRESSION: 1. Successful CT-guided right transgluteal abscess drainage. 2. 60 mL fluid was sent for aerobic and anaerobic cultures. 3. The catheter will be managed by Dr. Anderson. Small Bowel X-Ray 08/17/25 13:42 Impression: 1: Incomplete small bowel study with delayed passage of contrast into the distal small bowel. Study terminated due to complications with patient. Proximal small bowel dilated with multiple dilated distal loops of small bowel. Findings compatible with obstruction. Abdomen X-Ray 08/18/25 08:28 Impression: 1. Ileus versus early obstruction. The findings appear relatively unchanged Chest X-Ray 08/19/25 07:52 Impression: 1: Bibasilar airspace disease may represent pneumonia and/or atelectasis. Labs Labs: Laboratory Results - last 24 hr 08/19/25 08/19/25 08/19/25 12:13 13:39 17:26 WBC RBC Hgb Hct MCV MCH MCHC RDW Plt Count MPV Puncture Site Left radial ABG pH 7.401 ABG pCO2 35.4 ABG pO2 86.5 ABG PO2/FiO2 Ratio 2.16 ABG HCO3 21.5 L ABG O2 Saturation 96.6 ABG O2 Content 17.4 ABG Base Excess -2.7 A-a Gradient 158.0 Oxyhemoglobin 95.7 Total Hemoglobin 12.9 O2 Delivery Device Ventilator O2 Liters/Min Not Reportable Minute Volume 8.1 Vent Rate Not Reportable Vent Mode Asv FiO2 40 Tidal Volume 663 PEEP 5 Peak Inspir Pressure 8 Pressure Support Not Reportable Sodium Potassium Chloride Carbon Dioxide Anion Gap BUN Creatinine Estim Creat Clear Calc Estimated GFR Glucose POC Capillary Glucose 98 108 H Calcium Phosphorus C-Reactive Protein Triglycerides 08/19/25 08/20/25 23:18 05:29 WBC 19.4 H RBC 3.53 L Hgb 11.7 L Hct 36.4 L MCV 103.1 H MCH 33.1 MCHC 32.1 RDW 14.2 Plt Count 507 H MPV 8.2 Puncture Site ABG pH ABG pCO2 ABG pO2 ABG PO2/FiO2 Ratio ABG HCO3 ABG O2 Saturation ABG O2 Content ABG Base Excess A-a Gradient Oxyhemoglobin Total Hemoglobin O2 Delivery Device O2 Liters/Min Minute Volume Vent Rate Vent Mode FiO2 Tidal Volume PEEP Peak Inspir Pressure Pressure Support Sodium 137 Potassium 4.0 Chloride 105 Carbon Dioxide 25 Anion Gap 7 BUN 14 Creatinine 1.21 Estim Creat Clear Calc 59 Estimated GFR > 60 Glucose 108 POC Capillary Glucose 130 H Calcium 8.1 L Phosphorus 3.5 C-Reactive Protein 28.8 H Triglycerides 187 H
--- NOTE | 2025-08-20 12:30 | WPDINTPN ---
Progress Note: A&P Assessment and Plan (1) Acute respiratory failure: Code(s): J96.00 - Acute respiratory failure, unspecified whether with hypoxia or hypercapnia Status: Acute Assessment and Plan: Acute respiratory failure likely related to anesthesia and surgery for small bowel perforation on 08/18 -patient currently on CMV mode of ventilation, peep of 5, 50% FiO2, will wean FiO2 to maintain O2 sats > 92% -continue DuoNebs -08/19: Successfully extubated, currently on 2 L nasal cannula with adequate O2 sats Continue incentive spirometry (2) Bowel perforation: Code(s): K63.1 - Perforation of intestine (nontraumatic) Status: Acute Assessment and Plan: 08/18: Exploratory laparotomy, small-bowel perforation, adhesiolysis, removal of pigtail catheter drain. 08/17: Patient's pigtail drain had entry contents, small-bowel follow-through with water-soluble contrast was consistent with small-bowel obstruction 08/19: Second-look laparotomy with abdominal washout -discussed with surgery, patient did have a perforation of the jejunum also had enteric contents in the peritoneal cavity -continue Zosyn (08/18) -continue micafungin(08/19) -discussed with surgery this morning, recommended starting trickle tube feeds at 10 mL/hour, hold TPN (3) Obstruction of small intestine after surgical procedure: Code(s): K91.30 - Postprocedural intestinal obstruction, unspecified as to partial versus complete Status: Acute Assessment and Plan: As above (4) Intra-abdominal abscess: Code(s): K65.1 - Peritoneal abscess Status: Acute Assessment and Plan: 08/16/2025: Status post percutaneous drainage by Interventional Radiology for pelvic fluid collection status post recent sigmoidectomy (CT-guided right transgluteal abscess drainage catheter placement) (5) Protein-calorie malnutrition, severe: Code(s): E43 - Unspecified severe protein-calorie malnutrition Status: Acute Assessment and Plan: Patient has been on TPN which currently is on hold postoperatively. -will start trickle tube feeds at 10 mL/hour for today per surgery (6) Status post colon resection: Code(s): Z90.49 - Acquired absence of other specified parts of digestive tract Status: Acute Assessment and Plan: 08/10/2025: Sigmoidectomy for recurring diverticulitis (7) History of DVT (deep vein thrombosis): Code(s): Z86.718 - Personal history of other venous thrombosis and embolism Status: Acute Assessment and Plan: Patient has been on Xarelto as outpatient which is currently on hold -continue prophylactic Lovenox per surgery (8) Bronchiectasis: Qualifiers: Bronchiectasis type: uncomplicated Qualified Code(s): J47.9 - Bronchiectasis, uncomplicated Code(s): J47.9 - Bronchiectasis, uncomplicated Status: Chronic Assessment and Plan: In March 2025 but had an abdominal chest x-ray and bronchiectasis on the chest CT. He followed up with Dr. Disla, the stewardesses teacher, who did an extensive workup along with a 6 minute walk study which she passed. The stewardesses teacher did find past CT scan that showed bronchiectatic changes. Patient was cleared for surgery. Plan DVT prophylaxis: Lovenox SQ Stress ulcer prophylaxis: Famotidine Nutrition: Trickle tube feeds per surgery, at 10 mL/hour Code Status: Full code Critical Care Time Spent: 33 minutes Discussed with patient and updated him with his condition and plan of care. I answered all questions Patient may transfer out of the ICU, discussed with surgeon and hospitalist Due to a high probability of clinically significant, life threatening deterioration, the patient required my highest level of preparedness to intervene emergently and I personally spent this critical care time directly and personally managing the patient. This critical care time included obtaining a history; examining the patient; pulse oximetry; ordering and review of studies; arranging urgent treatment with development of a management plan; evaluation of patient's response to treatment; frequent reassessment; and discussions with other providers. It was exclusive of separately billable procedures and treating other patients and teaching time. Please see Assessment and Plan section and the rest of the note for further information on patient assessment and treatment This dictation may have been done utilizing a voice recognition system. Attempts have been made to correct errors. However, there may be uncorrected grammatical, spelling, and recognitions errors present. Subjective Date/time seen: 08/20/25 12:30 Interval history: Reason for consult: Perforation status post exploratory laparotomy, repair of small-bowel perforation, adhesiolysis, removal of pigtail catheter drain 08/10/2025: Patient underwent a hand assisted laparoscopic sigmoidectomy with anastomosis and a drain placement 08/17/2025: Underwent an exploratory laparotomy, small-bowel perforation, adhesiolysis, removal of pigtail catheter drain. 08/19/2025: 2nd look laparotomy, abdominal washout 08/19: Successfully extubated 08/20/2025: Patient seen and examined the ICU, remains extubated, on 2 L nasal cannula, is awake, alert, oriented, able to answer questions, overnight he had some pain but this has improved this morning. Urine output has been adequate, afebrile, hemodynamically stable. Denies any nausea, vomiting, shortness of breath or chest pain Review of Systems Review of Systems: All systems reviewed & are unremarkable except as noted in HPI and below Exam Narrative: General: Awake, alert, in no acute distress HEENT:? Pupils equal and reactive, sclera is clear, Neck:? Supple Respiratory:? Coarse breath sounds at bases bilaterally, adequate air entry, no wheezing Cardiac:? S1-S2 is normal, regular rate and rhythm Abdomen:? Soft, tender to palpation, nondistended, hypoactive bowel sounds were appreciated. Abdominal dressing in place, clean, dry and intact Extremities:? No edema, palpable pedal pulses Neuro:? Patient is awake, alert, oriented, nonfocal, answers to questions appropriately and follows simple commands Skin:? Warm and dry Psych:? Normal mentation and affect Objective Data Vital Signs Vital Signs: Vital Signs - 24 hr 08/19/25 12:36 08/19/25 12:43 08/19/25 12:44 Temperature Pulse Rate 101 H Respiratory Rate Blood Pressure Pulse Oximetry Oxygen Delivery Mechanical Ventilation Oxygen Flow Rate Fraction of Inspired Oxygen 40 40 08/19/25 13:00 08/19/25 13:50 08/19/25 14:00 Temperature 98.9 F Pulse Rate 104 H 103 H 109 H Respiratory Rate 20 25 H Blood Pressure 135/76 Pulse Oximetry 99 100 Oxygen Delivery Oxygen Flow Rate Fraction of Inspired Oxygen 08/19/25 14:00 08/19/25 14:00 08/19/25 14:00 Temperature Pulse Rate 105 H 105 H Respiratory Rate 24 H Blood Pressure Pulse Oximetry 98 Oxygen Delivery Nasal Cannula Oxygen Flow Rate 2 Fraction of Inspired Oxygen 08/19/25 14:00 08/19/25 14:41 08/19/25 15:00 Temperature Pulse Rate 105 H 104 H 106 H Respiratory Rate 18 24 H 22 H Blood Pressure 141/82 H 147/83 H Pulse Oximetry 99 100 Oxygen Delivery Oxygen Flow Rate Fraction of Inspired Oxygen 08/19/25 16:00 08/19/25 16:00 08/19/25 16:00 Temperature Pulse Rate 110 H 109 H Respiratory Rate 20 Blood Pressure 128/81 Pulse Oximetry 98 98 Oxygen Delivery Nasal Cannula Oxygen Flow Rate 2 Fraction of Inspired Oxygen 08/19/25 17:00 08/19/25 18:00 08/19/25 18:00 Temperature 97.8 F Pulse Rate 112 H 109 H 111 H Respiratory Rate 23 H 19 Blood Pressure 138/83 138/79 Pulse Oximetry 99 98 Oxygen Delivery Oxygen Flow Rate Fraction of Inspired Oxygen 08/19/25 19:00 08/19/25 20:00 08/19/25 20:00 Temperature 98.5 F Pulse Rate 109 H 110 H 110 H Respiratory Rate 28 H 29 H Blood Pressure 138/79 148/89 H Pulse Oximetry 96 98 Oxygen Delivery Oxygen Flow Rate Fraction of Inspired Oxygen 08/19/25 20:40 08/19/25 21:00 08/19/25 21:19 Temperature Pulse Rate 110 H 113 H 107 H Respiratory Rate 29 H 30 H 16 Blood Pressure 151/87 H Pulse Oximetry 98 95 Oxygen Delivery Nasal Cannula Oxygen Flow Rate 2 Fraction of Inspired Oxygen 08/19/25 21:20 08/19/25 21:25 08/19/25 22:00 Temperature Pulse Rate 109 H 113 H Respiratory Rate 16 Blood Pressure Pulse Oximetry 96 Oxygen Delivery Nasal Cannula Oxygen Flow Rate 2 Fraction of Inspired Oxygen 08/19/25 22:00 08/19/25 23:00 08/20/25 00:00 Temperature 98.2 F 98.5 F Pulse Rate 108 H 112 H 93 Respiratory Rate 25 H 21 H 16 Blood Pressure 156/80 H 140/96 H 142/71 H Pulse Oximetry 98 96 95 Oxygen Delivery Oxygen Flow Rate Fraction of Inspired Oxygen 08/20/25 00:00 08/20/25 00:12 08/20/25 01:00 Temperature Pulse Rate 93 93 89 Respiratory Rate 16 16 Blood Pressure 132/82 Pulse Oximetry 95 96 Oxygen Delivery Nasal Cannula Oxygen Flow Rate 2 Fraction of Inspired Oxygen 08/20/25 02:00 08/20/25 02:00 08/20/25 02:10 Temperature Pulse Rate 92 92 91 Respiratory Rate 17 18 Blood Pressure 124/77 Pulse Oximetry 97 Oxygen Delivery Oxygen Flow Rate Fraction of Inspired Oxygen 08/20/25 02:15 08/20/25 03:00 08/20/25 04:00 Temperature 98.1 F Pulse Rate 93 94 93 Respiratory Rate 18 15 13 Blood Pressure 128/74 129/78 Pulse Oximetry 95 96 Oxygen Delivery Oxygen Flow Rate Fraction of Inspired Oxygen 08/20/25 04:00 08/20/25 04:00 08/20/25 05:00 Temperature Pulse Rate 93 93 92 Respiratory Rate 13 16 Blood Pressure 134/81 Pulse Oximetry 96 97 Oxygen Delivery Nasal Cannula Oxygen Flow Rate 2 Fraction of Inspired Oxygen 08/20/25 06:00 08/20/25 06:00 08/20/25 07:00 Temperature Pulse Rate 97 97 91 Respiratory Rate 26 H 15 Blood Pressure 142/78 H 142/80 H Pulse Oximetry 98 98 Oxygen Delivery Oxygen Flow Rate Fraction of Inspired Oxygen 08/20/25 08:00 08/20/25 08:00 08/20/25 08:07 Temperature 98.2 F Pulse Rate 89 Respiratory Rate 17 Blood Pressure 142/79 H Pulse Oximetry 97 96 98 Oxygen Delivery Nasal Cannula Nasal Cannula Oxygen Flow Rate 1 2 Fraction of Inspired Oxygen 08/20/25 08:07 08/20/25 08:15 08/20/25 09:00 Temperature Pulse Rate 94 99 88 Respiratory Rate 20 25 H 14 Blood Pressure 143/80 H Pulse Oximetry 97 Oxygen Delivery Oxygen Flow Rate Fraction of Inspired Oxygen 08/20/25 10:00 08/20/25 11:00 08/20/25 12:00 Temperature Pulse Rate 92 96 Respiratory Rate 17 17 Blood Pressure 143/80 H 133/74 Pulse Oximetry 96 97 96 Oxygen Delivery Nasal Cannula Oxygen Flow Rate 1 Fraction of Inspired Oxygen 08/20/25 12:00 Temperature 98.4 F Pulse Rate 97 Respiratory Rate 21 H Blood Pressure 143/80 H Pulse Oximetry 97 Oxygen Delivery Oxygen Flow Rate Fraction of Inspired Oxygen Intake/Output Intake/Output: Intake & Output 08/17/25 08/18/25 08/19/25 08/20/25 23:59 23:59 23:59 23:59 Intake Total 4742.0 1895.1 892.1 450 Output Total 2500 1140 2825 1110 Balance 2242.0 755.1 -1932.9 -660 Meds/Results Medications: Active Medications Generic Name Dose Route Start Last Admin Trade Name Freq PRN Reason Stop Dose Admin Albuterol/Ipratropium 3 ml 08/18/25 14:00 08/20/25 08:04 Ipratropium 0.5 Mg/Albuterol Sulfate 2.5 Mg (Base) Ampul.Neb 3 Ml INHALATION 3 ml Q6HRT ANNETTE Administration Dextrose 12.5 gm 08/15/25 07:56 Dextrose 50% 25 Gm/50 Ml Syringe IV PUSH PRN PRN Hypoglycemia Protocol Enoxaparin Sodium 40 mg 08/11/25 09:00 08/20/25 08:35 Enoxaparin 40 Mg/0.4 Ml Syringe SUB-Q 40 mg DAILY ANNETTE Administration Famotidine 20 mg 08/10/25 21:00 08/20/25 08:35 Famotidine 20 Mg/2 Ml Vial IV PUSH 20 mg Q12HR ANNETTE Administration Fentanyl Citrate 25 mcg 08/19/25 17:31 08/20/25 12:16 Fentanyl Citrate Inj (*Crx) 100 Mcg/2 Ml Vial IV PUSH 25 mcg Q2H PRN Administration Pain Rated 7-10 Glucagon 1 mg 08/15/25 07:56 Glucagon For Inj 1 Mg Vial IM PRN PRN Hypoglycemia Protocol Glucose 15 gm 08/15/25 07:56 Glucose Oral Gel 15 Gm Of Glucse In 37.5 Gm Tube PO PRN PRN Hypoglycemia Protocol Hydrochlorothiazide 12.5 mg 08/11/25 09:00 08/12/25 10:31 Hydrochlorothiazide 12.5 Mg Capsule PO 12.5 mg On Hold: 08/12/25 11:48 QAM ANNETTE Administration Ibuprofen 800 mg in 200 mls @ 400 mls/hr 08/10/25 13:04 08/20/25 08:45 Caldolor 800 Mg/200 Ml IVPB 400 mls/hr Q6H PRN Administration Breakthrough Pain Rated 1-3 or NPO Piperacillin Sod/Tazobactam 50 mls @ 100 mls/hr 08/12/25 12:00 08/20/25 12:16 Sod 3.375 gm/ Sodium Chloride IVPB 100 mls/hr Q6H ANNETTE Administration Dextrose 1,000 mls @ 50 mls/hr 08/15/25 07:56 Dextrose 10% IV CONT .Q20H PRN if PN is interrupted Dextrose 1,000 mls @ 100 mls/hr 08/15/25 07:56 Dextrose 5% 1,000 Ml IVPB PRN PRN Hypoglycemia Protocol Multivitamins 1.25 ml/ 1,002.5 mls @ 70 mls/hr 08/15/25 12:00 08/17/25 23:05 Multivitamins 1.25 ml/ Amino IV CONT Not Given Acids/Electrolytes/Dextrose .[id number] ANNETTE On Hold: 08/17/25 21:12 Protocol Fat Emulsion Intravenous 250 mls @ 20.833 mls/hr 08/15/25 12:00 08/17/25 11:50 Lipids 20% IVPB 20 mls/hr On Hold: 08/17/25 21:13 Q24H ANNETTE Administration Micafungin Sodium 100 mg/ 100 mls @ 100 mls/hr 08/18/25 09:20 08/20/25 09:19 Sodium Chloride IVPB 100 mls/hr DAILY ANNETTE Administration Insulin Aspart 3 - 6 units 08/19/25 12:00 08/20/25 12:15 Insulin Aspart (*Bkc) 100 Units/Ml SUB-Q Not Given Q6HR [facility] Protocol Losartan Potassium 100 mg 08/11/25 09:00 08/12/25 10:30 Losartan Potassium 100 Mg Tablet PO 100 mg On Hold: 08/12/25 11:48 DAILY ANNETTE Administration Morphine Sulfate 1 mg 08/13/25 18:43 08/17/25 11:48 Morphine Sulfate (*Crx) 4 Mg/Ml Inj IV PUSH 1 mg On Hold: 08/18/25 07:36 Q2H PRN Administration Breakthrough Pain Rated 4-6 or NPO Morphine Sulfate 2 mg 08/13/25 18:43 08/17/25 14:45 Morphine Sulfate (*Crx) 4 Mg/Ml Inj IV PUSH 2 mg On Hold: 08/18/25 07:36 Q2H PRN Administration Breakthrough Pain Rated 7-10 or NPO Multi-Ingred Cream/Lotion/Oil/Oint 1 applic 08/17/25 21:00 08/20/25 08:36 Mineral Oil/White Petrolatum Ointment EACH EYE Not Given Q12HR ANNETTE Naloxone HCl 0.1 mg 08/10/25 13:04 Naloxone Hcl 0.4 Mg/Ml Vial IV PUSH Q2M PRN Opiate Reversal Ondansetron HCl 4 mg 08/10/25 13:04 Ondansetron Inj 4 Mg/2 Ml Vial IV PUSH Q4H PRN Nausea And Vomiting Oxycodone/Acetaminophen 1 tablet 08/10/25 13:04 08/12/25 10:33 Oxycodone/Acetaminophen (*Crx) 5-325 Mg Tablet PO 1 tablet On Hold: 08/12/25 11:49 Q4H PRN Administration Pain Rated 4-6 Oxycodone/Acetaminophen 1 tab 08/10/25 13:04 08/11/25 15:28 Oxycodone/Acetaminophen (*Crx) 10-325 Mg Tablet PO 1 tab On Hold: 08/12/25 11:49 Q6H PRN Administration Pain Rated 7-10 Sodium Chloride 10 ml 08/15/25 14:00 08/20/25 05:30 Central Line Flush IV PUSH 10 ml Q8HR ANNETTE Administration Sodium Chloride 10 ml 08/15/25 11:41 Central Line Flush IV PUSH PRN PRN with TPN bag changes Sodium Chloride 20 ml 08/15/25 11:41 Central Line Flush IV PUSH PRN PRN after blood draws Tramadol HCl 50 mg 08/10/25 13:04 Tramadol Hcl (*Crx) 50 Mg Tablet PO On Hold: 08/12/25 11:49 Q4H PRN Pain Rated 1-3 Trazodone HCl 50 mg 08/10/25 13:04 Trazodone Hcl 50 Mg Tablet PO On Hold: 08/12/25 11:49 HS PRN Insomnia Umeclidinium/Vilanterol 1 puff 08/10/25 14:00 08/20/25 08:04 Umeclidinium/Vilanterol 62.5-25 Mcg Ellipta INHALATION 1 puff DAILY ANNETTE Administration Radiology Results: ITS Impressions Chest CTA 08/13/25 16:42 IMPRESSION: 1. Negative for pulmonary embolism. Bilateral probable pneumonia. 2. Intra-abdominal free air possibly postoperative in nature relatively unchanged compared to the previous exam Abdomen/Pelvis CT 08/15/25 08:38 IMPRESSION: 1. Ileus and/or developing small bowel obstruction. 2. Free intraperitoneal air favoring recent postoperative change. 3. Peritonitis, with scattered ascites and interloop fluid. 4. Worrisome for cystitis, unless recent catheter manipulation. 5. Significant bibasilar atelectasis and/or airspace disease, with small left effusion. Catheter Placement CT 08/16/25 14:04 IMPRESSION: 1. Successful CT-guided right transgluteal abscess drainage. 2. 60 mL fluid was sent for aerobic and anaerobic cultures. 3. The catheter will be managed by Dr. Anderson. Small Bowel X-Ray 08/17/25 13:42 Impression: 1: Incomplete small bowel study with delayed passage of contrast into the distal small bowel. Study terminated due to complications with patient. Proximal small bowel dilated with multiple dilated distal loops of small bowel. Findings compatible with obstruction. Abdomen X-Ray 08/18/25 08:28 Impression: 1. Ileus versus early obstruction. The findings appear relatively unchanged Chest X-Ray 08/19/25 07:52 Impression: 1: Bibasilar airspace disease may represent pneumonia and/or atelectasis. Labs Labs: Laboratory Results - last 24 hr 08/19/25 08/19/25 08/19/25 13:39 17:26 23:18 WBC RBC Hgb Hct MCV MCH MCHC RDW Plt Count MPV Puncture Site Left radial ABG pH 7.401 ABG pCO2 35.4 ABG pO2 86.5 ABG PO2/FiO2 Ratio 2.16 ABG HCO3 21.5 L ABG O2 Saturation 96.6 ABG O2 Content 17.4 ABG Base Excess -2.7 A-a Gradient 158.0 Oxyhemoglobin 95.7 Total Hemoglobin 12.9 O2 Delivery Device Ventilator O2 Liters/Min Not Reportable Minute Volume 8.1 Vent Rate Not Reportable Vent Mode Asv FiO2 40 Tidal Volume 663 PEEP 5 Peak Inspir Pressure 8 Pressure Support Not Reportable Sodium Potassium Chloride Carbon Dioxide Anion Gap BUN Creatinine Estim Creat Clear Calc Estimated GFR Glucose POC Capillary Glucose 108 H 130 H Calcium Phosphorus C-Reactive Protein Triglycerides 08/20/25 05:29 WBC 19.4 H RBC 3.53 L Hgb 11.7 L Hct 36.4 L MCV 103.1 H MCH 33.1 MCHC 32.1 RDW 14.2 Plt Count 507 H MPV 8.2 Puncture Site ABG pH ABG pCO2 ABG pO2 ABG PO2/FiO2 Ratio ABG HCO3 ABG O2 Saturation ABG O2 Content ABG Base Excess A-a Gradient Oxyhemoglobin Total Hemoglobin O2 Delivery Device O2 Liters/Min Minute Volume Vent Rate Vent Mode FiO2 Tidal Volume PEEP Peak Inspir Pressure Pressure Support Sodium 137 Potassium 4.0 Chloride 105 Carbon Dioxide 25 Anion Gap 7 BUN 14 Creatinine 1.21 Estim Creat Clear Calc 59 Estimated GFR > 60 Glucose 108 POC Capillary Glucose Calcium 8.1 L Phosphorus 3.5 C-Reactive Protein 28.8 H Triglycerides 187 H Quality VTE Prophylaxis VTE prophylaxis: pharmacologic ordered
--- NOTE | 2025-08-20 16:59 | PC.NURSE ---
This patient, Casey A Urmila, was received from ICU 5 on 08/20/25 at 1647. Patient/family oriented to unit policies and routines. Patient left resting in bed with call light in reach, bed low and locked. Patient voiced no complaints or concerns at this time. Will continue to monitor. Cassie Ford RN.
--- NOTE | 2025-08-20 17:38 | P.PNIM_ITS ---
Progress Note: A&P Assessment and Plan (1) Acute respiratory failure: Code(s): J96.00 - Acute respiratory failure, unspecified whether with hypoxia or hypercapnia Status: Acute Assessment and Plan: Acute respiratory failure likely related to anesthesia and surgery for small bowel perforation on 08/18 -patient currently on CMV mode of ventilation, peep of 5, 50% FiO2, will wean FiO2 to maintain O2 sats > 92% -continue DuoNebs -08/19: Successfully extubated, currently on 2 L nasal cannula with adequate O2 sats Continue incentive spirometry -08/20: Continues to be stable, transferred to floor. (2) Bowel perforation: Code(s): K63.1 - Perforation of intestine (nontraumatic) Status: Acute Assessment and Plan: 08/18: Exploratory laparotomy, small-bowel perforation, adhesiolysis, removal of pigtail catheter drain. 08/17: Patient's pigtail drain had entry contents, small-bowel follow-through with water-soluble contrast was consistent with small-bowel obstruction 08/19: Second-look laparotomy with abdominal washout -discussed with surgery, patient did have a perforation of the jejunum also had enteric contents in the peritoneal cavity -continue Zosyn (08/18) -continue micafungin(08/19) 08/20: discussed with surgery this morning, recommended starting trickle tube feeds at 10 mL/hour, hold TPN (3) Obstruction of small intestine after surgical procedure: Code(s): K91.30 - Postprocedural intestinal obstruction, unspecified as to partial versus complete Status: Acute Assessment and Plan: As above (4) Intra-abdominal abscess: Code(s): K65.1 - Peritoneal abscess Status: Acute Assessment and Plan: 08/16/2025: Status post percutaneous drainage by Interventional Radiology for pelvic fluid collection status post recent sigmoidectomy (CT-guided right transgluteal abscess drainage catheter placement) (5) Protein-calorie malnutrition, severe: Code(s): E43 - Unspecified severe protein-calorie malnutrition Status: Acute Assessment and Plan: Patient has been on TPN which had been on hold postoperatively. -will start trickle tube feeds at 10 mL/hour for today per surgery (6) Status post colon resection: Code(s): Z90.49 - Acquired absence of other specified parts of digestive tract Status: Acute Assessment and Plan: 08/10/2025: Sigmoidectomy for recurring diverticulitis (7) History of DVT (deep vein thrombosis): Code(s): Z86.718 - Personal history of other venous thrombosis and embolism Status: Acute Assessment and Plan: Patient has been on Xarelto as outpatient which is currently on hold -continue prophylactic Lovenox per surgery (8) Bronchiectasis: Qualifiers: Bronchiectasis type: uncomplicated Qualified Code(s): J47.9 - Bronchiectasis, uncomplicated Code(s): J47.9 - Bronchiectasis, uncomplicated Status: Chronic Assessment and Plan: In March 2025 but had an abdominal chest x-ray and bronchiectasis on the chest CT. He followed up with Dr. Disla, the supervisor airplane flight attendant, who did an extensive workup along with a 6 minute walk study which she passed. The supervisor airplane flight attendant did find past CT scan that showed bronchiectatic changes. Patient was cleared for surgery. Plan Transferred to floor. DVT prophylaxis: Lovenox SQ Stress ulcer prophylaxis: Famotidine Nutrition: Trickle tube feeds per surgery, at 10 mL/hour Code Status: Full code Subjective Date/time seen: 08/20/25 17:38 Review of Systems Review of Systems: All systems reviewed & are unremarkable except as noted in HPI and below Exam Narrative: General: Awake, alert, in no acute distress HEENT:? Pupils equal and reactive, sclera is clear, Neck:? Supple Respiratory:? Coarse breath sounds at bases bilaterally, adequate air entry, no wheezing Cardiac:? S1-S2 is normal, regular rate and rhythm Abdomen:? Soft, tender to palpation, nondistended, hypoactive bowel sounds were appreciated. Abdominal dressing in place, clean, dry and intact Extremities:? No edema, palpable pedal pulses Neuro:? Patient is awake, alert, oriented, nonfocal, answers to questions appropriately and follows simple commands Skin:? Warm and dry Psych:? Normal mentation and affect Objective Data Vital Signs Vital Signs: Vital Signs - 24 hr 08/19/25 18:00 08/19/25 18:00 08/19/25 19:00 Temperature Pulse Rate 109 H 111 H 109 H Respiratory Rate 19 28 H Blood Pressure 138/79 138/79 Pulse Oximetry 98 96 Oxygen Delivery Oxygen Flow Rate 08/19/25 20:00 08/19/25 20:00 08/19/25 20:40 Temperature 98.5 F Pulse Rate 110 H 110 H 110 H Respiratory Rate 29 H 29 H Blood Pressure 148/89 H Pulse Oximetry 98 98 Oxygen Delivery Nasal Cannula Oxygen Flow Rate 2 08/19/25 21:00 08/19/25 21:19 08/19/25 21:20 Temperature Pulse Rate 113 H 107 H Respiratory Rate 30 H 16 Blood Pressure 151/87 H Pulse Oximetry 95 96 Oxygen Delivery Nasal Cannula Oxygen Flow Rate 2 08/19/25 21:25 08/19/25 22:00 08/19/25 22:00 Temperature 98.2 F Pulse Rate 109 H 113 H 108 H Respiratory Rate 16 25 H Blood Pressure 156/80 H Pulse Oximetry 98 Oxygen Delivery Oxygen Flow Rate 08/19/25 23:00 08/20/25 00:00 08/20/25 00:00 Temperature 98.5 F Pulse Rate 112 H 93 93 Respiratory Rate 21 H 16 Blood Pressure 140/96 H 142/71 H Pulse Oximetry 96 95 Oxygen Delivery Oxygen Flow Rate 08/20/25 00:12 08/20/25 01:00 08/20/25 02:00 Temperature Pulse Rate 93 89 92 Respiratory Rate 16 16 Blood Pressure 132/82 Pulse Oximetry 95 96 Oxygen Delivery Nasal Cannula Oxygen Flow Rate 2 08/20/25 02:00 08/20/25 02:10 08/20/25 02:15 Temperature Pulse Rate 92 91 93 Respiratory Rate 17 18 18 Blood Pressure 124/77 Pulse Oximetry 97 Oxygen Delivery Oxygen Flow Rate 08/20/25 03:00 08/20/25 04:00 08/20/25 04:00 Temperature 98.1 F Pulse Rate 94 93 93 Respiratory Rate 15 13 Blood Pressure 128/74 129/78 Pulse Oximetry 95 96 Oxygen Delivery Oxygen Flow Rate 08/20/25 04:00 08/20/25 05:00 08/20/25 06:00 Temperature Pulse Rate 93 92 97 Respiratory Rate 13 16 Blood Pressure 134/81 Pulse Oximetry 96 97 Oxygen Delivery Nasal Cannula Oxygen Flow Rate 2 08/20/25 06:00 08/20/25 07:00 08/20/25 08:00 Temperature 98.2 F Pulse Rate 97 91 89 Respiratory Rate 26 H 15 17 Blood Pressure 142/78 H 142/80 H 142/79 H Pulse Oximetry 98 98 97 Oxygen Delivery Oxygen Flow Rate 08/20/25 08:00 08/20/25 08:00 08/20/25 08:07 Temperature Pulse Rate 88 Respiratory Rate Blood Pressure Pulse Oximetry 96 98 Oxygen Delivery Nasal Cannula Nasal Cannula Oxygen Flow Rate 1 2 08/20/25 08:07 08/20/25 08:15 08/20/25 09:00 Temperature Pulse Rate 94 99 88 Respiratory Rate 20 25 H 14 Blood Pressure 143/80 H Pulse Oximetry 97 Oxygen Delivery Oxygen Flow Rate 08/20/25 10:00 08/20/25 10:00 08/20/25 11:00 Temperature Pulse Rate 92 88 96 Respiratory Rate 17 17 Blood Pressure 143/80 H 133/74 Pulse Oximetry 96 97 Oxygen Delivery Oxygen Flow Rate 08/20/25 12:00 08/20/25 12:00 08/20/25 12:00 Temperature 98.4 F Pulse Rate 97 86 Respiratory Rate 21 H Blood Pressure 143/80 H Pulse Oximetry 96 97 Oxygen Delivery Nasal Cannula Oxygen Flow Rate 1 08/20/25 13:10 08/20/25 13:18 08/20/25 14:00 Temperature Pulse Rate 79 82 90 Respiratory Rate 12 17 Blood Pressure Pulse Oximetry Oxygen Delivery Oxygen Flow Rate 08/20/25 16:00 08/20/25 16:00 08/20/25 16:00 Temperature 98.3 F Pulse Rate 92 62 Respiratory Rate 24 H Blood Pressure 154/82 H Pulse Oximetry 97 97 Oxygen Delivery Nasal Cannula Oxygen Flow Rate 1 Intake/Output Intake/Output: Intake & Output 08/17/25 08/18/25 08/19/25 08/20/25 23:59 23:59 23:59 23:59 Intake Total 4742.0 1895.1 892.1 800 Output Total 2500 1140 2825 1325 Balance 2242.0 755.1 -1932.9 -525 Meds/Results Medications: Active Medications Generic Name Dose Route Start Last Admin Trade Name Freq PRN Reason Stop Dose Admin Albuterol/Ipratropium 3 ml 08/18/25 14:00 08/20/25 13:10 Ipratropium 0.5 Mg/Albuterol Sulfate 2.5 Mg (Base) Ampul.Neb 3 Ml INHALATION 3 ml Q6HRT ANNETTE Administration Dextrose 12.5 gm 08/15/25 07:56 Dextrose 50% 25 Gm/50 Ml Syringe IV PUSH PRN PRN Hypoglycemia Protocol Enoxaparin Sodium 40 mg 08/11/25 09:00 08/20/25 08:35 Enoxaparin 40 Mg/0.4 Ml Syringe SUB-Q 40 mg DAILY ANNETTE Administration Famotidine 20 mg 08/10/25 21:00 08/20/25 08:35 Famotidine 20 Mg/2 Ml Vial IV PUSH 20 mg Q12HR ANNETTE Administration Fentanyl Citrate 25 mcg 08/19/25 17:31 08/20/25 16:01 Fentanyl Citrate Inj (*Crx) 100 Mcg/2 Ml Vial IV PUSH 25 mcg Q2H PRN Administration Pain Rated 7-10 Glucagon 1 mg 08/15/25 07:56 Glucagon For Inj 1 Mg Vial IM PRN PRN Hypoglycemia Protocol Glucose 15 gm 08/15/25 07:56 Glucose Oral Gel 15 Gm Of Glucse In 37.5 Gm Tube PO PRN PRN Hypoglycemia Protocol Hydrochlorothiazide 12.5 mg 08/11/25 09:00 08/12/25 10:31 Hydrochlorothiazide 12.5 Mg Capsule PO 12.5 mg On Hold: 08/12/25 11:48 QAM ANNETTE Administration Ibuprofen 800 mg in 200 mls @ 400 mls/hr 08/10/25 13:04 08/20/25 09:15 Caldolor 800 Mg/200 Ml IVPB Infused Q6H PRN Infusion Breakthrough Pain Rated 1-3 or NPO Piperacillin Sod/Tazobactam 50 mls @ 100 mls/hr 08/12/25 12:00 08/20/25 17:32 Sod 3.375 gm/ Sodium Chloride IVPB 100 mls/hr Q6H ANNETTE Administration Dextrose 1,000 mls @ 50 mls/hr 08/15/25 07:56 Dextrose 10% IV CONT .Q20H PRN if PN is interrupted Dextrose 1,000 mls @ 100 mls/hr 08/15/25 07:56 Dextrose 5% 1,000 Ml IVPB PRN PRN Hypoglycemia Protocol Micafungin Sodium 100 mg/ 100 mls @ 100 mls/hr 08/18/25 09:20 08/20/25 10:19 Sodium Chloride IVPB Infused DAILY ANNETTE Infusion Insulin Aspart 3 - 6 units 08/19/25 12:00 08/20/25 17:35 Insulin Aspart (*Bkc) 100 Units/Ml SUB-Q Not Given Q6HR ANNETTE Protocol Losartan Potassium 100 mg 08/11/25 09:00 08/12/25 10:30 Losartan Potassium 100 Mg Tablet PO 100 mg On Hold: 08/12/25 11:48 DAILY ANNETTE Administration Multi-Ingred Cream/Lotion/Oil/Oint 1 applic 08/17/25 21:00 08/20/25 08:36 Mineral Oil/White Petrolatum Ointment EACH EYE Not Given Q12HR ANNETTE Naloxone HCl 0.1 mg 08/10/25 13:04 Naloxone Hcl 0.4 Mg/Ml Vial IV PUSH Q2M PRN Opiate Reversal Ondansetron HCl 4 mg 08/10/25 13:04 Ondansetron Inj 4 Mg/2 Ml Vial IV PUSH Q4H PRN Nausea And Vomiting Sodium Chloride 10 ml 08/15/25 14:00 08/20/25 14:01 Central Line Flush IV PUSH 10 ml Q8HR ANNETTE Administration Sodium Chloride 10 ml 08/15/25 11:41 Central Line Flush IV PUSH PRN PRN with TPN bag changes Sodium Chloride 20 ml 08/15/25 11:41 Central Line Flush IV PUSH PRN PRN after blood draws Trazodone HCl 50 mg 08/10/25 13:04 Trazodone Hcl 50 Mg Tablet PO On Hold: 08/12/25 11:49 HS PRN Insomnia Umeclidinium/Vilanterol 1 puff 08/10/25 14:00 08/20/25 08:04 Umeclidinium/Vilanterol 62.5-25 Mcg Ellipta INHALATION 1 puff DAILY ANNETTE Administration Radiology Results: ITS Impressions Chest CTA 08/13/25 16:42 IMPRESSION: 1. Negative for pulmonary embolism. Bilateral probable pneumonia. 2. Intra-abdominal free air possibly postoperative in nature relatively unchanged compared to the previous exam Abdomen/Pelvis CT 08/15/25 08:38 IMPRESSION: 1. Ileus and/or developing small bowel obstruction. 2. Free intraperitoneal air favoring recent postoperative change. 3. Peritonitis, with scattered ascites and interloop fluid. 4. Worrisome for cystitis, unless recent catheter manipulation. 5. Significant bibasilar atelectasis and/or airspace disease, with small left effusion. Catheter Placement CT 08/16/25 14:04 IMPRESSION: 1. Successful CT-guided right transgluteal abscess drainage. 2. 60 mL fluid was sent for aerobic and anaerobic cultures. 3. The catheter will be managed by Dr. Anderson. Small Bowel X-Ray 08/17/25 13:42 Impression: 1: Incomplete small bowel study with delayed passage of contrast into the distal small bowel. Study terminated due to complications with patient. Proximal small bowel dilated with multiple dilated distal loops of small bowel. Findings compatible with obstruction. Abdomen X-Ray 08/18/25 08:28 Impression: 1. Ileus versus early obstruction. The findings appear relatively unchanged Chest X-Ray 08/19/25 07:52 Impression: 1: Bibasilar airspace disease may represent pneumonia and/or atelectasis. Labs Labs: Laboratory Results - last 24 hr 08/19/25 08/20/25 08/20/25 23:18 05:29 11:55 WBC 19.4 H RBC 3.53 L Hgb 11.7 L Hct 36.4 L MCV 103.1 H MCH 33.1 MCHC 32.1 RDW 14.2 Plt Count 507 H MPV 8.2 Sodium 137 Potassium 4.0 Chloride 105 Carbon Dioxide 25 Anion Gap 7 BUN 14 Creatinine 1.21 Estim Creat Clear Calc 59 Estimated GFR > 60 Glucose 108 POC Capillary Glucose 130 H 117 H Calcium 8.1 L Phosphorus 3.5 C-Reactive Protein 28.8 H Triglycerides 187 H Hospitalist MIPS Advance Care Plan I have confirmed that the patient's Advanced Care Plan is present, code status is documented, or surrogate decision maker is listed in patient medical record.: Yes Medication Reconciliation I have utilized all available resources to obtain, update and review the patients current medications (includes all prescriptions, OTC, herbals, cannabis, and nutritional supplements).: Yes
[2025-08-20] MEDS: ONDANSETRON INJ 4 MG/2 ML VIAL IV PUSH (20:15)
[2025-08-20] MEDS: MINERAL OIL/WHITE PETROLATUM OINTMENT 1 APPLIC EACH EYE (20:15)
--- NOTE | 2025-08-20 23:39 | P.PNCROSS_ITS ---
Event Note Event Note Event Note: The patient started vomiting. Tube feeding was held for now. Small-bowel obst ruction x-ray was ordered. Patient's NG tube was connected to low intermittent suction for now. Repeat x-ray shows that he has a small-bowel obstruction. A notified nursing staff to call the surgeon in the morning about these findings.
[2025-08-21] VITALS (27 sets, daily range): BP systolic 143–163; BP diastolic 68–85; PULSE 90–109; RESP 20–24; TEMP 36.4–37; O2SAT 91–95
[2025-08-21] MEDS: IPRATROPIUM 0.5 MG/ALBUTEROL SULFATE 2.5 MG (BASE) AMPUL.NEB 3 ML INHALATION ×4 (01:15→20:13)
[2025-08-21] MEDS: fentaNYL CITRATE INJ (*CRX) 100 MCG/2 ML VIAL 25 MCG IV PUSH ×6 (02:23→23:45)
[2025-08-21 05:31] LABS: Hematocrit 34.1 % (42.0-52.0); Hemoglobin 10.9 g/dL (14.0-18.0); Mean Corpuscular HGB Conc 32.0 g/dl (32-36); Mean Corpuscular Hemoglobin 32.5 pg (26-34); Mean Corpuscular Volume 101.8 fl (80-100); Platelet Count Result 555 k/mm3 (150-375); Red Blood Count 3.35 M/mm3 (4.6-6.20); White Blood Count 15.6 K/mm3 (4.5-10.0)
[2025-08-21] MEDS: PIPERACILLIN/TAZOBACTAM SOD 3.375 GM in SODIUM CHLORIDE 0.9% IV 50 ML 100 ML IVPB ×3 (05:31→17:19)
[2025-08-21] MEDS: CENTRAL LINE FLUSH 10 ML IV PUSH ×3 (05:31→20:17)
[2025-08-21 05:56] LABS: Anion Gap 7 mmol/L (4-12); Blood Urea Nitrogen 11 mg/dL (9-20); Calcium 8.3 mg/dL (8.4-10.2); Carbon Dioxide 26 mmol/L (22-30); Chloride 105 mmol/L (98-107); Estimated CRCL calculation 62 ml/min; Estimated Glomerular Filt Rate > 60; Glucose 100 mg/dL (65-110); Potassium 3.7 mmol/L (3.4-5.0); Sodium 138 mmol/L (137-145)
[2025-08-21 06:59] LABS: CRP 30.3 mg/dL (<1.0)
[2025-08-21] MEDS: UMECLIDINIUM/VILANTEROL 62.5-25 MCG ELLIPTA 1 PUFF INHALATION (07:14)
[2025-08-21] MEDS: FAMOTIDINE 20 MG/2 ML VIAL IV PUSH ×2 (08:33→20:17)
[2025-08-21] MEDS: ENOXAPARIN 40 MG/0.4 ML SYRINGE SUB-Q (08:33)
[2025-08-21] MEDS: MICAFUNGIN SODIUM 100 MG in SODIUM CHLORIDE 0.9% IV 100 ML IVPB (08:38)
--- NOTE | 2025-08-21 10:28 | P.PNGS_ITS ---
Progress Note: A&P Assessment and Plan (1) Bowel perforation: Code(s): K63.1 - Perforation of intestine (nontraumatic) Status: Acute Assessment and Plan: doing well, continue NG tube decompression and will await return of bowel function, restart TPN, encourage out of bed/IS Subjective Subjective Date/Time Seen: 08/21/25 10:28 Interval history: feels okay, did not tolerate trickle feeds secondary to pain, cramping Review of Systems Review of Systems: All systems reviewed & are unremarkable except as noted in HPI and below Exam Const: General: cooperative, comfortable, no acute distress and ill appearing Resp: Auscultation: clear to auscultation bilaterally Cardio: Rate: regular rate Rhythm: regular rhythm GI: Inspection: normal to inspection, distended and incision GI Palp: Yes abdominal tenderness, Yes Soft to palpation and Yes Tenderness to palpation pr esent (GI) Other: MERON c s/s drainage Objective Data Vital Signs Vital Signs: Vital Signs - 24 hr 08/20/25 11:00 08/20/25 12:00 08/20/25 12:00 Temperature 36.9 C Pulse Rate 96 97 Respiratory Rate 17 21 H Blood Pressure 133/74 143/80 H Pulse Oximetry 97 96 97 Oxygen Delivery Nasal Cannula Oxygen Flow Rate 1 Fraction of Inspired Oxygen 08/20/25 12:00 08/20/25 13:10 08/20/25 13:18 Temperature Pulse Rate 86 79 82 Respiratory Rate 12 17 Blood Pressure Pulse Oximetry Oxygen Delivery Oxygen Flow Rate Fraction of Inspired Oxygen 08/20/25 14:00 08/20/25 16:00 08/20/25 16:00 Temperature 36.8 C Pulse Rate 90 92 Respiratory Rate 24 H Blood Pressure 154/82 H Pulse Oximetry 97 97 Oxygen Delivery Nasal Cannula Oxygen Flow Rate 1 Fraction of Inspired Oxygen 08/20/25 16:00 08/20/25 18:00 08/20/25 19:39 Temperature Pulse Rate 62 96 95 Respiratory Rate 20 Blood Pressure Pulse Oximetry Oxygen Delivery Oxygen Flow Rate Fraction of Inspired Oxygen 08/20/25 19:40 08/20/25 20:00 08/20/25 20:00 Temperature 36.9 C Pulse Rate 95 98 Respiratory Rate 20 24 H Blood Pressure 154/86 H Pulse Oximetry 94 96 96 Oxygen Delivery Nasal Cannula Nasal Cannula Oxygen Flow Rate 1 1 Fraction of Inspired Oxygen 21 08/20/25 20:00 08/20/25 22:00 08/20/25 23:53 Temperature Pulse Rate 98 95 Respiratory Rate Blood Pressure Pulse Oximetry 96 Oxygen Delivery Nasal Cannula Oxygen Flow Rate 1 Fraction of Inspired Oxygen 08/20/25 23:57 08/21/25 00:00 08/21/25 01:16 Temperature 36.8 C Pulse Rate 103 H 100 99 Respiratory Rate 24 H 20 Blood Pressure 155/83 H Pulse Oximetry 95 Oxygen Delivery Oxygen Flow Rate Fraction of Inspired Oxygen 08/21/25 01:30 08/21/25 02:00 08/21/25 03:34 Temperature Pulse Rate 101 H 104 H Respiratory Rate 20 Blood Pressure Pulse Oximetry 95 Oxygen Delivery Nasal Cannula Oxygen Flow Rate 1 Fraction of Inspired Oxygen 08/21/25 04:00 08/21/25 04:00 08/21/25 06:00 Temperature 36.4 C Pulse Rate 103 H 105 H 99 Respiratory Rate 24 H Blood Pressure 155/68 H Pulse Oximetry 95 Oxygen Delivery Oxygen Flow Rate Fraction of Inspired Oxygen 08/21/25 07:10 08/21/25 07:10 08/21/25 07:20 Temperature Pulse Rate 97 97 103 H Respiratory Rate 20 20 20 Blood Pressure Pulse Oximetry 95 Oxygen Delivery Nasal Cannula Oxygen Flow Rate 1 Fraction of Inspired Oxygen 24 08/21/25 07:59 08/21/25 08:00 08/21/25 08:00 Temperature 36.8 C Pulse Rate 105 H 109 H Respiratory Rate 20 Blood Pressure 156/74 H Pulse Oximetry 94 92 Oxygen Delivery Room Air Oxygen Flow Rate Fraction of Inspired Oxygen 08/21/25 08:23 08/21/25 10:00 Temperature Pulse Rate 109 H 101 H Respiratory Rate 20 Blood Pressure Pulse Oximetry 92 Oxygen Delivery Room Air Oxygen Flow Rate Fraction of Inspired Oxygen 21 Intake/Output Intake/Output: Intake & Output 08/18/25 08/19/25 08/20/25 08/21/25 23:59 23:59 23:59 23:59 Intake Total 1895.1 892.1 850 50 Output Total 1140 2475 3925 1321 Balance 755.1 -1932.9 -925 -1275 Meds/Results Medications: Active Medications Generic Name Dose Route Start Last Admin Trade Name Freq PRN Reason Stop Dose Admin Albuterol/Ipratropium 3 ml 08/18/25 14:00 08/21/25 07:14 Ipratropium 0.5 Mg/Albuterol Sulfate 2.5 Mg (Base) Ampul.Neb 3 Ml INHALATION 3 ml Q6HRT ANNETTE Administration Alteplase, Recombinant 2 mg 08/20/25 21:24 Alteplase 2 Mg Vial (Cathflo) IV PUSH ONCE PRN Line Occlusion Dextrose 12.5 gm 08/15/25 07:56 Dextrose 50% 25 Gm/50 Ml Syringe IV PUSH PRN PRN Hypoglycemia Protocol Enoxaparin Sodium 40 mg 08/11/25 09:00 08/21/25 08:33 Enoxaparin 40 Mg/0.4 Ml Syringe SUB-Q 40 mg DAILY ANNETTE Administration Famotidine 20 mg 08/10/25 21:00 08/21/25 08:33 Famotidine 20 Mg/2 Ml Vial IV PUSH 20 mg Q12HR ANNETTE Administration Fentanyl Citrate 25 mcg 08/19/25 17:31 08/21/25 08:34 Fentanyl Citrate Inj (*Crx) 100 Mcg/2 Ml Vial IV PUSH 25 mcg Q2H PRN Administration Pain Rated 7-10 Glucagon 1 mg 08/15/25 07:56 Glucagon For Inj 1 Mg Vial IM PRN PRN Hypoglycemia Protocol Glucose 15 gm 08/15/25 07:56 Glucose Oral Gel 15 Gm Of Glucse In 37.5 Gm Tube PO PRN PRN Hypoglycemia Protocol Hydrochlorothiazide 12.5 mg 08/11/25 09:00 08/12/25 10:31 Hydrochlorothiazide 12.5 Mg Capsule PO 12.5 mg On Hold: 08/12/25 11:48 QAM ANNETTE Administration Ibuprofen 800 mg in 200 mls @ 400 mls/hr 08/10/25 13:04 08/20/25 09:15 Caldolor 800 Mg/200 Ml IVPB Infused Q6H PRN Infusion Breakthrough Pain Rated 1-3 or NPO Piperacillin Sod/Tazobactam 50 mls @ 100 mls/hr 08/12/25 12:00 08/21/25 05:31 Sod 3.375 gm/ Sodium Chloride IVPB 100 mls/hr Q6H ANNETTE Administration Dextrose 1,000 mls @ 50 mls/hr 08/15/25 07:56 Dextrose 10% IV CONT .Q20H PRN if PN is interrupted Dextrose 1,000 mls @ 100 mls/hr 08/15/25 07:56 Dextrose 5% 1,000 Ml IVPB PRN PRN Hypoglycemia Protocol Micafungin Sodium 100 mg/ 100 mls @ 100 mls/hr 08/18/25 09:20 08/21/25 08:38 Sodium Chloride IVPB 100 mls/hr DAILY ANNETTE Administration Dextrose 1,000 mls @ 50 mls/hr 08/21/25 10:00 Dextrose 10% IV CONT .Q20H PRN if PN is interrupted Amino Acids/Electrolytes/Dextrose 1,000 mls @ 80 mls/hr 08/21/25 10:00 Clinimix E 4.25%/5% Solution IV CONT .[id number] [facility] Protocol Fat Emulsion Intravenous 250 mls @ 20.833 mls/hr 08/21/25 10:00 Lipids 20% IVPB Q24H [facility] Insulin Aspart 3 - 6 units 08/19/25 12:00 08/21/25 06:23 Insulin Aspart (*Bkc) 100 Units/Ml SUB-Q Not Given Q6HR [facility] Protocol Losartan Potassium 100 mg 08/11/25 09:00 08/12/25 10:30 Losartan Potassium 100 Mg Tablet PO 100 mg On Hold: 08/12/25 11:48 DAILY ANNETTE Administration Multi-Ingred Cream/Lotion/Oil/Oint 1 applic 08/17/25 21:00 08/21/25 08:34 Mineral Oil/White Petrolatum Ointment EACH EYE Not Given Q12HR [facility] Naloxone HCl 0.1 mg 08/10/25 13:04 Naloxone Hcl 0.4 Mg/Ml Vial IV PUSH Q2M PRN Opiate Reversal Ondansetron HCl 4 mg 08/10/25 13:04 08/20/25 20:15 Ondansetron Inj 4 Mg/2 Ml Vial IV PUSH 4 mg Q4H PRN Administration Nausea And Vomiting Sodium Chloride 10 ml 08/15/25 14:00 08/21/25 05:31 Central Line Flush IV PUSH 10 ml Q8HR ANNETTE Administration Sodium Chloride 10 ml 08/15/25 11:41 Central Line Flush IV PUSH PRN PRN with TPN bag changes Sodium Chloride 20 ml 08/15/25 11:41 Central Line Flush IV PUSH PRN PRN after blood draws Trazodone HCl 50 mg 08/10/25 13:04 Trazodone Hcl 50 Mg Tablet PO On Hold: 08/12/25 11:49 HS PRN Insomnia Umeclidinium/Vilanterol 1 puff 08/10/25 14:00 08/21/25 07:14 Umeclidinium/Vilanterol 62.5-25 Mcg Ellipta INHALATION 1 puff DAILY ANNETTE Administration Radiology Results: ITS Impressions Chest CTA 08/13/25 16:42 IMPRESSION: 1. Negative for pulmonary embolism. Bilateral probable pneumonia. 2. Intra-abdominal free air possibly postoperative in nature relatively unchanged compared to the previous exam Abdomen/Pelvis CT 08/15/25 08:38 IMPRESSION: 1. Ileus and/or developing small bowel obstruction. 2. Free intraperitoneal air favoring recent postoperative change. 3. Peritonitis, with scattered ascites and interloop fluid. 4. Worrisome for cystitis, unless recent catheter manipulation. 5. Significant bibasilar atelectasis and/or airspace disease, with small left effusion. Catheter Placement CT 08/16/25 14:04 IMPRESSION: 1. Successful CT-guided right transgluteal abscess drainage. 2. 60 mL fluid was sent for aerobic and anaerobic cultures. 3. The catheter will be managed by Dr. Anderson. Small Bowel X-Ray 08/17/25 13:42 Impression: 1: Incomplete small bowel study with delayed passage of contrast into the distal small bowel. Study terminated due to complications with patient. Proximal small bowel dilated with multiple dilated distal loops of small bowel. Findings compatible with obstruction. Chest X-Ray 08/19/25 07:52 Impression: 1: Bibasilar airspace disease may represent pneumonia and/or atelectasis. Labs Labs: Laboratory Results - last 24 hr 08/20/25 08/20/25 08/20/25 11:55 17:35 23:36 WBC RBC Hgb Hct MCV MCH MCHC RDW Plt Count MPV Sodium Potassium Chloride Carbon Dioxide Anion Gap BUN Creatinine Estim Creat Clear Calc Estimated GFR Glucose POC Capillary Glucose 117 H 98 123 H Calcium Phosphorus C-Reactive Protein 08/21/25 05:17 WBC 15.6 H RBC 3.35 L Hgb 10.9 L Hct 34.1 L MCV 101.8 H MCH 32.5 MCHC 32.0 RDW 14.2 Plt Count 555 H MPV 8.0 Sodium 138 Potassium 3.7 Chloride 105 Carbon Dioxide 26 Anion Gap 7 BUN 11 Creatinine 1.15 Estim Creat Clear Calc 62 Estimated GFR > 60 Glucose 100 POC Capillary Glucose Calcium 8.3 L Phosphorus 2.8 C-Reactive Protein 30.3 H
[2025-08-21 10:50] LABS: Immature Granulocyte Percent A 3.4 % (0-0.5); Lymphocytes Absolute Auto 1.28 K/mm3 (0.9-3.2); Nucleated Red Blood Cells Absolute Auto 0.000 K/mm3 (0.0-0.012); Nucleated Red Blood Cells Perc 0.0 % (0.0-0.2)
[2025-08-21] MEDS: AMINO ACIDS 5%/D15W/E-LYTES/CA 1,000 ML with MULTIVITAMINS-12 INJ VIAL 1 1.25 ML, MULTI... 70 ML IV CONT (11:04)
[2025-08-21] MEDS: FAT EMULSIONS IV 20% 250 ML 20.83 ML IVPB (11:04)
[2025-08-21 11:20] LABS: Partial Thromboplastin Time 75.3 Seconds (22.3-36.8)
[2025-08-21 11:32] LABS: Alanine Aminotransferase 12 U/L (6-50); Albumin Level 3.0 g/dL (3.5-5.1); Alkaline Phosphatase 72 U/L (38-126); Anion Gap 7 mmol/L (4-12); Aspartate Amino Transferase 37 U/L (17-59); Bilirubin,Total 0.7 mg/dL (0.2-1.3); Blood Urea Nitrogen 10 mg/dL (9-20); Calcium 8.4 mg/dL (8.4-10.2); Carbon Dioxide 25 mmol/L (22-30); Chloride 106 mmol/L (98-107); Estimated CRCL calculation 64 ml/min; Estimated Glomerular Filt Rate > 60; Glucose 93 mg/dL (65-110); Magnesium 2.2 mg/dL (1.6-2.3); Potassium 3.7 mmol/L (3.4-5.0); Sodium 138 mmol/L (137-145); Total Protein 6.5 g/dL (6.3-8.2)
[2025-08-21 11:39] LABS: Transferrin 113 mg/dL (206-381)
--- NOTE | 2025-08-21 16:03 | PM.IMPN ---
Progress Note: A&P Assessment and Plan (1) Obstruction of small intestine after surgical procedure: Code(s): K91.30 - Postprocedural intestinal obstruction, unspecified as to partial versus complete Status: Acute Assessment and Plan: As below (2) Acute respiratory failure: Code(s): J96.00 - Acute respiratory failure, unspecified whether with hypoxia or hypercapnia Status: Resolved Assessment and Plan: Acute respiratory failure likely related to anesthesia and surgery for small bowel perforation on 08/18 -patient currently on CMV mode of ventilation, peep of 5, 50% FiO2, will wean FiO2 to maintain O2 sats > 92% -continue DuoNebs -08/19: Successfully extubated, currently on 2 L nasal cannula with adequate O2 sats Continue incentive spirometry -08/20: Continues to be stable, transferred to floor. -08/21: Resolved (3) Bowel perforation: Code(s): K63.1 - Perforation of intestine (nontraumatic) Status: Acute Assessment and Plan: 08/18: Exploratory laparotomy, small-bowel perforation, adhesiolysis, removal of pigtail catheter drain. 08/17: Patient's pigtail drain had entry contents, small-bowel follow-through with water-soluble contrast was consistent with small-bowel obstruction 08/19: Second-look laparotomy with abdominal washout -discussed with surgery, patient did have a perforation of the jejunum also had enteric contents in the peritoneal cavity -continue Zosyn (08/18) -continue micafungin(08/19) 08/20: discussed with surgery this morning, recommended starting trickle tube feeds at 10 mL/hour, hold TPN 08/21: TPN resumed as SBO has continued, and patient was not tolerating tube feeds (4) Intra-abdominal abscess: Code(s): K65.1 - Peritoneal abscess Status: Acute Assessment and Plan: 08/16/2025: Status post percutaneous drainage by Interventional Radiology for pelvic fluid collection status post recent sigmoidectomy (CT-guided right transgluteal abscess drainage catheter placement) (5) Protein-calorie malnutrition, severe: Code(s): E43 - Unspecified severe protein-calorie malnutrition Status: Acute Assessment and Plan: Patient has been on TPN which had been on hold postoperatively. -will start trickle tube feeds at 10 mL/hour for today per surgery (6) Status post colon resection: Code(s): Z90.49 - Acquired absence of other specified parts of digestive tract Status: Acute Assessment and Plan: 08/10/2025: Sigmoidectomy for recurring diverticulitis (7) History of DVT (deep vein thrombosis): Code(s): Z86.718 - Personal history of other venous thrombosis and embolism Status: Acute Assessment and Plan: Patient has been on Xarelto as outpatient which is currently on hold -continue prophylactic Lovenox per surgery (8) Bronchiectasis: Qualifiers: Bronchiectasis type: uncomplicated Qualified Code(s): J47.9 - Bronchiectasis, uncomplicated Code(s): J47.9 - Bronchiectasis, uncomplicated Status: Chronic Assessment and Plan: In March 2025 but had an abdominal chest x-ray and bronchiectasis on the chest CT. He followed up with Dr. Disla, the hand polisher, who did an extensive workup along with a 6 minute walk study which she passed. The hand polisher did find past CT scan that showed bronchiectatic changes. Patient was cleared for surgery. Plan Transferred to floor. DVT prophylaxis: Lovenox SQ Stress ulcer prophylaxis: Famotidine Nutrition: TPN Code Status: Full code Subjective Date/time seen: 08/21/25 16:03 Interval history: Casey Kearns is a 60 year old male with a past medical history of PE, HTN, DVT, bronchiectasis, diverticulitis requiring several inpatient admissions presented to [facility] on 08/10 for an elected sigmoidectomy to avoid further episodes of diverticulitis. Patient was initially scheduled for the sigmoidectomy in March 2025 but had an abnormal chest x-ray and bronchiectasis on a chest CT. Patient followed up with hand polisher Dr. Disla for further workup of his abnormal CT. Patient was able to pass a [address] Disla found past CT scans that showed the bronchi ectatic change had been there for many years. Patient also has a history of hypospadias with meatal stenosis creating difficulty passing a Anand catheter. Urology was requested to place bilateral ureteral stents for assistance in identifying the ureters and perform a urethral meatal dilatation. Patient has a history of a right leg DVT and PE. He takes Xarelto 20 mg daily for anticoagulation. 08/10/2025: Patient underwent a hand assisted laparoscopic sigmoidectomy with anastomosis and a drain placement 08/17/2025: Underwent an exploratory laparotomy, small-bowel perforation, adhesiolysis, removal of pigtail catheter drain. 08/19/2025: 2nd look laparotomy, abdominal washout 08/19/2025: Successfully extubated 08/20/2025: Patient seen and examined the ICU, remains extubated, on 2 L nasal cannula, is awake, alert, oriented, able to answer questions, overnight he had some pain but this has improved this morning. Urine output has been adequate, afebrile, hemodynamically stable. Denies any nausea, vomiting, shortness of breath or chest pain 08/21/2025: Transferred to IMU, overnight had episode of vomiting and ultimately did not tolerate tube feeds. Feeds were halted, LIS started on NG tube. Patient was seen by surgery and recommended conservative management, with continued NG decompression, and resumption of TPN as he remains NPO. Review of Systems Review of Systems: All systems reviewed & are unremarkable except as noted in HPI and below Exam Narrative: General: Awake, alert, in no acute distress NG in place, on decompression. Getting TPN via central line. HEENT:? Pupils equal and reactive, sclera is clear, Neck:? Supple Respiratory:? Coarse breath sounds at bases bilaterally, adequate air entry, no wheezing Cardiac:? S1-S2 is normal, regular rate and rhythm Abdomen:? Soft, tender to palpation, nondistended, hypoactive bowel sounds were appreciated. Abdominal dressing in place, clean, dry and intact Extremities:? No edema, palpable pedal pulses Neuro:? Patient is awake, alert, oriented, nonfocal, answers to questions appropriately and follows simple commands Skin:? Warm and dry Psych:? Normal mentation and affect Objective Data Vital Signs Vital Signs: Vital Signs - 24 hr 08/20/25 18:00 08/20/25 19:39 08/20/25 19:40 Temperature Pulse Rate 96 95 95 Respiratory Rate 20 20 Blood Pressure Pulse Oximetry 94 Oxygen Delivery Nasal Cannula Oxygen Flow Rate 1 Fraction of Inspired Oxygen 21 08/20/25 20:00 08/20/25 20:00 08/20/25 20:00 Temperature 98.4 F Pulse Rate 98 98 Respiratory Rate 24 H Blood Pressure 154/86 H Pulse Oximetry 96 96 Oxygen Delivery Nasal Cannula Oxygen Flow Rate 1 Fraction of Inspired Oxygen 08/20/25 22:00 08/20/25 23:53 08/20/25 23:57 Temperature 98.3 F Pulse Rate 95 103 H Respiratory Rate 24 H Blood Pressure 155/83 H Pulse Oximetry 96 95 Oxygen Delivery Nasal Cannula Oxygen Flow Rate 1 Fraction of Inspired Oxygen 08/21/25 00:00 08/21/25 01:16 08/21/25 01:30 Temperature Pulse Rate 100 99 101 H Respiratory Rate 20 20 Blood Pressure Pulse Oximetry Oxygen Delivery Oxygen Flow Rate Fraction of Inspired Oxygen 08/21/25 02:00 08/21/25 03:34 08/21/25 04:00 Temperature Pulse Rate 104 H 103 H Respiratory Rate Blood Pressure Pulse Oximetry 95 Oxygen Delivery Nasal Cannula Oxygen Flow Rate 1 Fraction of Inspired Oxygen 08/21/25 04:00 08/21/25 06:00 08/21/25 07:10 Temperature 97.6 F Pulse Rate 105 H 99 97 Respiratory Rate 24 H 20 Blood Pressure 155/68 H Pulse Oximetry 95 Oxygen Delivery Oxygen Flow Rate Fraction of Inspired Oxygen 08/21/25 07:10 08/21/25 07:20 08/21/25 07:59 Temperature 98.2 F Pulse Rate 97 103 H 105 H Respiratory Rate 20 20 20 Blood Pressure 156/74 H Pulse Oximetry 95 94 Oxygen Delivery Nasal Cannula Oxygen Flow Rate 1 Fraction of Inspired Oxygen 24 08/21/25 08:00 08/21/25 08:00 08/21/25 08:23 Temperature Pulse Rate 109 H 109 H Respiratory Rate 20 Blood Pressure Pulse Oximetry 92 92 Oxygen Delivery Room Air Room Air Oxygen Flow Rate Fraction of Inspired Oxygen 21 08/21/25 10:00 08/21/25 11:52 08/21/25 12:00 Temperature 98.3 F Pulse Rate 101 H 95 Respiratory Rate 20 Blood Pressure 163/77 H Pulse Oximetry 94 94 Oxygen Delivery Room Air Oxygen Flow Rate Fraction of Inspired Oxygen 08/21/25 12:00 08/21/25 12:32 08/21/25 13:35 Temperature Pulse Rate 99 97 Respiratory Rate 20 Blood Pressure Pulse Oximetry Oxygen Delivery Room Air Oxygen Flow Rate Fraction of Inspired Oxygen 08/21/25 13:43 08/21/25 14:00 Temperature Pulse Rate 98 101 H Respiratory Rate 20 Blood Pressure Pulse Oximetry Oxygen Delivery Oxygen Flow Rate Fraction of Inspired Oxygen Intake/Output Intake/Output: Intake & Output 08/18/25 08/19/25 08/20/25 08/21/25 23:59 23:59 23:59 23:59 Intake Total 1895.1 892.1 850 100 Output Total 1140 4415 4755 9316 Balance 942.1 -1725.9 -522 -9404 Meds/Results Medications: Active Medications Generic Name Dose Route Start Last Admin Trade Name Freq PRN Reason Stop Dose Admin Albuterol/Ipratropium 3 ml 08/18/25 14:00 08/21/25 13:38 Ipratropium 0.5 Mg/Albuterol Sulfate 2.5 Mg (Base) Ampul.Neb 3 Ml INHALATION 3 ml Q6HRT ANNETTE Administration Alteplase, Recombinant 2 mg 08/20/25 21:24 Alteplase 2 Mg Vial (Cathflo) IV PUSH ONCE PRN Line Occlusion Dextrose 12.5 gm 08/15/25 07:56 Dextrose 50% 25 Gm/50 Ml Syringe IV PUSH PRN PRN Hypoglycemia Protocol Enoxaparin Sodium 40 mg 08/11/25 09:00 08/21/25 08:33 Enoxaparin 40 Mg/0.4 Ml Syringe SUB-Q 40 mg DAILY ANNETTE Administration Famotidine 20 mg 08/10/25 21:00 08/21/25 08:33 Famotidine 20 Mg/2 Ml Vial IV PUSH 20 mg Q12HR ANNETTE Administration Fentanyl Citrate 25 mcg 08/19/25 17:31 08/21/25 12:39 Fentanyl Citrate Inj (*Crx) 100 Mcg/2 Ml Vial IV PUSH 25 mcg Q2H PRN Administration Pain Rated 7-10 Glucagon 1 mg 08/15/25 07:56 Glucagon For Inj 1 Mg Vial IM PRN PRN Hypoglycemia Protocol Glucose 15 gm 08/15/25 07:56 Glucose Oral Gel 15 Gm Of Glucse In 37.5 Gm Tube PO PRN PRN Hypoglycemia Protocol Hydrochlorothiazide 12.5 mg 08/11/25 09:00 08/12/25 10:31 Hydrochlorothiazide 12.5 Mg Capsule PO 12.5 mg On Hold: 08/12/25 11:48 QAM ANNETTE Administration Ibuprofen 800 mg in 200 mls @ 400 mls/hr 08/10/25 13:04 08/20/25 09:15 Caldolor 800 Mg/200 Ml IVPB Infused Q6H PRN Infusion Breakthrough Pain Rated 1-3 or NPO Piperacillin Sod/Tazobactam 50 mls @ 100 mls/hr 08/12/25 12:00 08/21/25 11:17 Sod 3.375 gm/ Sodium Chloride IVPB 100 mls/hr Q6H ANNETTE Administration Dextrose 1,000 mls @ 50 mls/hr 08/15/25 07:56 Dextrose 10% IV CONT .Q20H PRN if PN is interrupted Dextrose 1,000 mls @ 100 mls/hr 08/15/25 07:56 Dextrose 5% 1,000 Ml IVPB PRN PRN Hypoglycemia Protocol Micafungin Sodium 100 mg/ 100 mls @ 100 mls/hr 08/18/25 09:20 08/21/25 08:38 Sodium Chloride IVPB 100 mls/hr DAILY ANNETTE Administration Dextrose 1,000 mls @ 50 mls/hr 08/21/25 10:00 Dextrose 10% IV CONT .Q20H PRN if PN is interrupted Fat Emulsion Intravenous 250 mls @ 20.833 mls/hr 08/21/25 10:00 08/21/25 11:04 Lipids 20% IVPB 20.83 mls/hr Q24H ANNETTE Administration Multivitamins 1.25 ml/ 1,002.5 mls @ 70 mls/hr 08/21/25 11:00 08/21/25 11:04 Multivitamins 1.25 ml/ Amino IV CONT 70 mls/hr Acids/Electrolytes/Dextrose .[id number] ANNETTE Administration Protocol Insulin Aspart 3 - 6 units 08/19/25 12:00 08/21/25 12:01 Insulin Aspart (*Bkc) 100 Units/Ml SUB-Q Not Given Q6HR ANNETTE Protocol Losartan Potassium 100 mg 08/11/25 09:00 08/12/25 10:30 Losartan Potassium 100 Mg Tablet PO 100 mg On Hold: 08/12/25 11:48 DAILY ANNETTE Administration Miscellaneous Information 1 each 08/21/25 00:01 Please Renew Zosyn. Per [employer] Procedure, It Will Discontinue If Not Renewed. XX 09/20/25 00:00 CLARIFY ANNETTE Multi-Ingred Cream/Lotion/Oil/Oint 1 applic 08/17/25 21:00 08/21/25 08:34 Mineral Oil/White Petrolatum Ointment EACH EYE Not Given Q12HR ANNETTE Naloxone HCl 0.1 mg 08/10/25 13:04 Naloxone Hcl 0.4 Mg/Ml Vial IV PUSH Q2M PRN Opiate Reversal Ondansetron HCl 4 mg 08/10/25 13:04 08/20/25 20:15 Ondansetron Inj 4 Mg/2 Ml Vial IV PUSH 4 mg Q4H PRN Administration Nausea And Vomiting Sodium Chloride 10 ml 08/15/25 14:00 08/21/25 12:39 Central Line Flush IV PUSH 10 ml Q8HR ANNETTE Administration Sodium Chloride 10 ml 08/15/25 11:41 Central Line Flush IV PUSH PRN PRN with TPN bag changes Sodium Chloride 20 ml 08/15/25 11:41 Central Line Flush IV PUSH PRN PRN after blood draws Trazodone HCl 50 mg 08/10/25 13:04 Trazodone Hcl 50 Mg Tablet PO On Hold: 08/12/25 11:49 HS PRN Insomnia Umeclidinium/Vilanterol 1 puff 08/10/25 14:00 08/21/25 07:14 Umeclidinium/Vilanterol 62.5-25 Mcg Ellipta INHALATION 1 puff DAILY ANNETTE Administration Radiology Results: ITS Impressions Chest CTA 08/13/25 16:42 IMPRESSION: 1. Negative for pulmonary embolism. Bilateral probable pneumonia. 2. Intra-abdominal free air possibly postoperative in nature relatively unchanged compared to the previous exam Abdomen/Pelvis CT 08/15/25 08:38 IMPRESSION: 1. Ileus and/or developing small bowel obstruction. 2. Free intraperitoneal air favoring recent postoperative change. 3. Peritonitis, with scattered ascites and interloop fluid. 4. Worrisome for cystitis, unless recent catheter manipulation. 5. Significant bibasilar atelectasis and/or airspace disease, with small left effusion. Catheter Placement CT 08/16/25 14:04 IMPRESSION: 1. Successful CT-guided right transgluteal abscess drainage. 2. 60 mL fluid was sent for aerobic and anaerobic cultures. 3. The catheter will be managed by Dr. Anderson. Small Bowel X-Ray 08/17/25 13:42 Impression: 1: Incomplete small bowel study with delayed passage of contrast into the distal small bowel. Study terminated due to complications with patient. Proximal small bowel dilated with multiple dilated distal loops of small bowel. Findings compatible with obstruction. Chest X-Ray 08/19/25 07:52 Impression: 1: Bibasilar airspace disease may represent pneumonia and/or atelectasis. Labs Labs: Laboratory Results - last 24 hr 08/20/25 08/20/25 08/21/25 17:35 23:36 05:17 WBC 15.6 H RBC Hgb Hct MCV MCH MCHC RDW Plt Count MPV Immature Gran % (Auto) Neut % (Auto) Lymph % (Auto) [place] % (Auto) Eos % (Auto) Baso % (Auto) Lymph # (Auto) [place] # (Auto) Eos # (Auto) Baso # (Auto) Abs Immat Gran (auto) Absolute Neuts (auto) Absolute Nucleated RBC Nucleated RBC % % Immature Plt Fraction APTT Sodium Potassium Chloride Carbon Dioxide Anion Gap BUN Creatinine Estim Creat Clear Calc Estimated GFR Glucose POC Capillary Glucose 98 123 H Calcium Phosphorus Magnesium Transferrin Total Bilirubin AST ALT Alkaline Phosphatase C-Reactive Protein Total Protein Albumin 08/21/25 08/21/25 08/21/25 05:17 05:17 05:17 WBC Cancelled RBC 3.35 L Cancelled Hgb 10.9 L Cancelled Hct 34.1 L MCV MCH MCHC RDW Plt Count MPV Immature Gran % (Auto) Neut % (Auto) Lymph % (Auto) [place] % (Auto) Eos % (Auto) Baso % (Auto) Lymph # (Auto) [place] # (Auto) Eos # (Auto) Baso # (Auto) Abs Immat Gran (auto) Absolute Neuts (auto) Absolute Nucleated RBC Nucleated RBC % % Immature Plt Fraction APTT Sodium Potassium Chloride Carbon Dioxide Anion Gap BUN Creatinine Estim Creat Clear Calc Estimated GFR Glucose POC Capillary Glucose Calcium Phosphorus Magnesium Transferrin Total Bilirubin AST ALT Alkaline Phosphatase C-Reactive Protein Total Protein Albumin 08/21/25 08/21/25 08/21/25 05:17 05:17 05:17 WBC RBC Hgb Hct Cancelled MCV 101.8 H Cancelled MCH 32.5 Cancelled MCHC 32.0 RDW Plt Count MPV Immature Gran % (Auto) Neut % (Auto) Lymph % (Auto) [place] % (Auto) Eos % (Auto) Baso % (Auto) Lymph # (Auto) [place] # (Auto) Eos # (Auto) Baso # (Auto) Abs Immat Gran (auto) Absolute Neuts (auto) Absolute Nucleated RBC Nucleated RBC % % Immature Plt Fraction APTT Sodium Potassium Chloride Carbon Dioxide Anion Gap BUN Creatinine Estim Creat Clear Calc Estimated GFR Glucose POC Capillary Glucose Calcium Phosphorus Magnesium Transferrin Total Bilirubin AST ALT Alkaline Phosphatase C-Reactive Protein Total Protein Albumin 08/21/25 08/21/25 08/21/25 05:17 05:17 05:17 WBC RBC Hgb Hct MCV MCH MCHC Cancelled RDW 14.2 Cancelled Plt Count 555 H Cancelled MPV 8.0 Immature Gran % (Auto) Neut % (Auto) Lymph % (Auto) [place] % (Auto) Eos % (Auto) Baso % (Auto) Lymph # (Auto) [place] # (Auto) Eos # (Auto) Baso # (Auto) Abs Immat Gran (auto) Absolute Neuts (auto) Absolute Nucleated RBC Nucleated RBC % % Immature Plt Fraction APTT Sodium Potassium Chloride Carbon Dioxide Anion Gap BUN Creatinine Estim Creat Clear Calc Estimated GFR Glucose POC Capillary Glucose Calcium Phosphorus Magnesium Transferrin Total Bilirubin AST ALT Alkaline Phosphatase C-Reactive Protein Total Protein Albumin 08/21/25 08/21/25 08/21/25 05:17 05:17 05:17 WBC RBC Hgb Hct MCV MCH MCHC RDW Plt Count MPV Cancelled Immature Gran % (Auto) 3.4 H Cancelled Neut % (Auto) 78.6 H Cancelled Lymph % (Auto) 8.1 L [place] % (Auto) Eos % (Auto) Baso % (Auto) Lymph # (Auto) [place] # (Auto) Eos # (Auto) Baso # (Auto) Abs Immat Gran (auto) Absolute Neuts (auto) Absolute Nucleated RBC Nucleated RBC % % Immature Plt Fraction APTT Sodium Potassium Chloride Carbon Dioxide Anion Gap BUN Creatinine Estim Creat Clear Calc Estimated GFR Glucose POC Capillary Glucose Calcium Phosphorus Magnesium Transferrin Total Bilirubin AST ALT Alkaline Phosphatase C-Reactive Protein Total Protein Albumin 08/21/25 08/21/25 08/21/25 05:17 05:17 05:17 WBC RBC Hgb Hct MCV MCH MCHC RDW Plt Count MPV Immature Gran % (Auto) Neut % (Auto) Lymph % (Auto) Cancelled [place] % (Auto) 7.0 Cancelled Eos % (Auto) 2.3 Cancelled Baso % (Auto) 0.6 Lymph # (Auto) [place] # (Auto) Eos # (Auto) Baso # (Auto) Abs Immat Gran (auto) Absolute Neuts (auto) Absolute Nucleated RBC Nucleated RBC % % Immature Plt Fraction APTT Sodium Potassium Chloride Carbon Dioxide Anion Gap BUN Creatinine Estim Creat Clear Calc Estimated GFR Glucose POC Capillary Glucose Calcium Phosphorus Magnesium Transferrin Total Bilirubin AST ALT Alkaline Phosphatase C-Reactive Protein Total Protein Albumin 08/21/25 08/21/25 08/21/25 05:17 05:17 05:17 WBC RBC Hgb Hct MCV MCH MCHC RDW Plt Count MPV Immature Gran % (Auto) Neut % (Auto) Lymph % (Auto) [place] % (Auto) Eos % (Auto) Baso % (Auto) Cancelled Lymph # (Auto) 1.28 Cancelled [place] # (Auto) 1.1 H Cancelled Eos # (Auto) 0.4 H Baso # (Auto) Abs Immat Gran (auto) Absolute Neuts (auto) Absolute Nucleated RBC Nucleated RBC % % Immature Plt Fraction APTT Sodium Potassium Chloride Carbon Dioxide Anion Gap BUN Creatinine Estim Creat Clear Calc Estimated GFR Glucose POC Capillary Glucose Calcium Phosphorus Magnesium Transferrin Total Bilirubin AST ALT Alkaline Phosphatase C-Reactive Protein Total Protein Albumin 08/21/25 08/21/25 08/21/25 05:17 05:17 05:17 WBC RBC Hgb Hct MCV MCH MCHC RDW Plt Count MPV Immature Gran % (Auto) Neut % (Auto) Lymph % (Auto) [place] % (Auto) Eos % (Auto) Baso % (Auto) Lymph # (Auto) [place] # (Auto) Eos # (Auto) Cancelled Baso # (Auto) 0.1 Cancelled Abs Immat Gran (auto) 0.54 H Cancelled Absolute Neuts (auto) 12.4 H Absolute Nucleated RBC Nucleated RBC % % Immature Plt Fraction APTT Sodium Potassium Chloride Carbon Dioxide Anion Gap BUN Creatinine Estim Creat Clear Calc Estimated GFR Glucose POC Capillary Glucose Calcium Phosphorus Magnesium Transferrin Total Bilirubin AST ALT Alkaline Phosphatase C-Reactive Protein Total Protein Albumin 08/21/25 08/21/25 08/21/25 05:17 05:17 05:17 WBC RBC Hgb Hct MCV MCH MCHC RDW Plt Count MPV Immature Gran % (Auto) Neut % (Auto) Lymph % (Auto) [place] % (Auto) Eos % (Auto) Baso % (Auto) Lymph # (Auto) [place] # (Auto) Eos # (Auto) Baso # (Auto) Abs Immat Gran (auto) Absolute Neuts (auto) Cancelled Absolute Nucleated RBC 0.000 Cancelled Nucleated RBC % 0.0 Cancelled % Immature Plt Fraction Cancelled APTT Sodium 138 Potassium 3.7 Chloride 105 Carbon Dioxide 26 Anion Gap 7 BUN 11 Creatinine 1.15 Estim Creat Clear Calc 62 Estimated GFR > 60 Glucose 100 POC Capillary Glucose Calcium 8.3 L Phosphorus 2.8 Magnesium Transferrin Total Bilirubin AST ALT Alkaline Phosphatase C-Reactive Protein 30.3 H Total Protein Albumin 08/21/25 08/21/25 10:46 11:58 WBC RBC Hgb Hct MCV MCH MCHC RDW Plt Count MPV Immature Gran % (Auto) Neut % (Auto) Lymph % (Auto) [place] % (Auto) Eos % (Auto) Baso % (Auto) Lymph # (Auto) [place] # (Auto) Eos # (Auto) Baso # (Auto) Abs Immat Gran (auto) Absolute Neuts (auto) Absolute Nucleated RBC Nucleated RBC % % Immature Plt Fraction APTT 75.3 H Sodium 138 Potassium 3.7 Chloride 106 Carbon Dioxide 25 Anion Gap 7 BUN 10 Creatinine 1.11 Estim Creat Clear Calc 64 Estimated GFR > 60 Glucose 93 POC Capillary Glucose 123 H Calcium 8.4 Phosphorus Magnesium 2.2 Transferrin 113 L Total Bilirubin 0.7 AST 37 ALT 12 Alkaline Phosphatase 72 C-Reactive Protein Total Protein 6.5 Albumin 3.0 L Hospitalist MIPS Advance Care Plan I have confirmed that the patient's Advanced Care Plan is present, code status is documented, or surrogate decision maker is listed in patient medical record.: Yes Medication Reconciliation I have utilized all available resources to obtain, update and review the patients current medications (includes all prescriptions, OTC, herbals, cannabis, and nutritional supplements).: Yes
[2025-08-22] VITALS (22 sets, daily range): BP systolic 130–159; BP diastolic 75–95; PULSE 80–101; RESP 16–24; TEMP 36.3–37.1; O2SAT 93–97
[2025-08-22] MEDS: PIPERACILLIN/TAZOBACTAM SOD 3.375 GM in SODIUM CHLORIDE 0.9% IV 50 ML 100 ML IVPB ×2 (00:05→05:04)
[2025-08-22] MEDS: AMINO ACIDS 5%/D15W/E-LYTES/CA 1,000 ML with MULTIVITAMINS-12 INJ VIAL 1 1.25 ML, MULTI... 70 ML IV CONT (00:59)
[2025-08-22] MEDS: IPRATROPIUM 0.5 MG/ALBUTEROL SULFATE 2.5 MG (BASE) AMPUL.NEB 3 ML INHALATION ×4 (01:56→20:52)
[2025-08-22] MEDS: fentaNYL CITRATE INJ (*CRX) 100 MCG/2 ML VIAL 25 MCG IV PUSH ×5 (02:45→21:59)
[2025-08-22 04:50] LABS: Hematocrit 32.9 % (42.0-52.0); Hemoglobin 10.2 g/dL (14.0-18.0); Immature Granulocyte Percent A 3.5 % (0-0.5); Lymphocytes Absolute Auto 1.30 K/mm3 (0.9-3.2); Mean Corpuscular HGB Conc 31.0 g/dl (32-36); Mean Corpuscular Hemoglobin 32.3 pg (26-34); Mean Corpuscular Volume 104.1 fl (80-100); Nucleated Red Blood Cells Absolute Auto 0.000 K/mm3 (0.0-0.012); Nucleated Red Blood Cells Perc 0.0 % (0.0-0.2); Platelet Count Result 616 k/mm3 (150-375); Red Blood Count 3.16 M/mm3 (4.6-6.20); White Blood Count 13.5 K/mm3 (4.5-10.0)
[2025-08-22 05:00] LABS: INR 1.4; Prothrombin Time 16.8 Seconds (11.1-14.7)
[2025-08-22 05:01] LABS: Partial Thromboplastin Time 41.7 Seconds (22.3-36.8)
[2025-08-22 05:19] LABS: Alanine Aminotransferase 11 U/L (6-50); Albumin Level 2.8 g/dL (3.5-5.1); Alkaline Phosphatase 44 U/L (38-126); Anion Gap 3 mmol/L (4-12); Aspartate Amino Transferase 32 U/L (17-59); Bilirubin,Total 0.4 mg/dL (0.2-1.3); Blood Urea Nitrogen 10 mg/dL (9-20); Calcium 8.2 mg/dL (8.4-10.2); Carbon Dioxide 27 mmol/L (22-30); Chloride 97 mmol/L (98-107); Estimated CRCL calculation 70 ml/min; Estimated Glomerular Filt Rate > 60; Glucose 387 mg/dL (65-110); Magnesium 2.3 mg/dL (1.6-2.3); Potassium 5.5 mmol/L (3.4-5.0); Sodium 127 mmol/L (137-145); Total Protein 5.9 g/dL (6.3-8.2)
[2025-08-22 05:21] LABS: Transferrin 102 mg/dL (206-381)
[2025-08-22] MEDS: CENTRAL LINE FLUSH 10 ML IV PUSH ×3 (05:28→20:03)
[2025-08-22 05:33] LABS: CRP 12.3 mg/dL (<1.0)
[2025-08-22] MEDS: INSULIN ASPART (*BKC) 100 UNITS/ML SUB-Q (06:03)
[2025-08-22 07:13] LABS: Triglycerides 198 mg/dL (<150)
[2025-08-22] MEDS: UMECLIDINIUM/VILANTEROL 62.5-25 MCG ELLIPTA 1 PUFF INHALATION (08:14)
--- NOTE | 2025-08-22 08:25 | P.PNGS_ITS ---
Progress Note: A&P Assessment and Plan (1) Bowel perforation: Code(s): K63.1 - Perforation of intestine (nontraumatic) Status: Acute Assessment and Plan: Laparotomy and repair 08/17/2025. Second-look laparotomy with abdominal washout, 08/19/2025. Continues to have postop ileus. Continue NG tube, NPO, serial exam and labs. Will check KUB today. Yesterday's film suggested SBO but clinically more likely to be ileus. (2) Status post colon resection: Code(s): Z90.49 - Acquired absence of other specified parts of digestive tract Status: Acute Assessment and Plan: Hand access laparoscopic sigmoidectomy was the initial procedure and was performed 08/10/2025. (3) Intra-abdominal abscess: Code(s): K65.1 - Peritoneal abscess Status: Acute Assessment and Plan: Percutaneous CT-guided pelvic drain placed transgluteal 08/16/2025. Cultures grew Avani albicans. Continues on micafungin and has pelvic drain. 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 Patient had history pulmonary embolism is reason for chronic anticoagulation. (5) Protein-calorie malnutrition, severe: Code(s): E43 - Unspecified severe protein-calorie malnutrition Status: Acute Assessment and Plan: Resume full TPN with lipids. Monitor carefully. (6) Bronchiectasis: Qualifiers: Bronchiectasis type: uncomplicated Qualified Code(s): J47.9 - Bronchiectasis, uncomplicated Code(s): J47.9 - Bronchiectasis, uncomplicated Status: Chronic Assessment and Plan: Sats are good on room air. Not coughing and seems to be doing well from a pulmonary standpoint. Subjective Subjective Date/Time Seen: 08/22/25 08:25 Post Op day: 3 Patient reports: no new complaints, pain is less, no flatus, no bowel movement and afebrile Exam Const: General: cooperative, comfortable and awake; No acute distress Orientation/consciousness: patient oriented x3 and No confusion GI: Inspection: distended, incision (Clean, dry, and intact) and no visible herniation GI Palp: Yes Firmness to palpation present (GI), Yes Tenderness to palpation present (GI), No Hernia present and No Palpable mass present Auscultation: absent bowel sounds Urinary Catheter: Urinary Catheter: patent and draining Objective Data Vital Signs Vital Signs: Vital Signs - 24 hr 08/21/25 10:00 08/21/25 11:52 08/21/25 12:00 Temperature 36.8 C Pulse Rate 101 H 95 Respiratory Rate 20 Blood Pressure 163/77 H Pulse Oximetry 94 94 Oxygen Delivery Room Air 08/21/25 12:00 08/21/25 12:32 08/21/25 13:35 Temperature Pulse Rate 99 97 Respiratory Rate 20 Blood Pressure Pulse Oximetry Oxygen Delivery Room Air 08/21/25 13:43 08/21/25 14:00 08/21/25 16:00 Temperature Pulse Rate 98 101 H Respiratory Rate 20 Blood Pressure Pulse Oximetry 94 Oxygen Delivery Room Air 08/21/25 16:00 08/21/25 16:00 08/21/25 18:00 Temperature 36.6 C Pulse Rate 97 96 94 Respiratory Rate 20 Blood Pressure 143/85 H Pulse Oximetry 93 Oxygen Delivery 08/21/25 20:00 08/21/25 20:00 08/21/25 20:00 Temperature 36.9 C Pulse Rate 92 90 Respiratory Rate 20 Blood Pressure 150/74 H Pulse Oximetry 91 92 Oxygen Delivery Room Air 08/21/25 20:13 08/21/25 20:16 08/21/25 20:21 Temperature Pulse Rate 96 96 Respiratory Rate 20 20 Blood Pressure Pulse Oximetry 92 Oxygen Delivery Room Air 08/21/25 21:47 08/21/25 23:17 08/21/25 23:53 Temperature 37.0 C Pulse Rate 100 90 Respiratory Rate 20 Blood Pressure 147/68 H Pulse Oximetry 95 95 Oxygen Delivery Room Air 08/22/25 00:00 08/22/25 01:57 08/22/25 02:00 Temperature Pulse Rate 92 92 90 Respiratory Rate 20 Blood Pressure Pulse Oximetry Oxygen Delivery 08/22/25 02:06 08/22/25 04:00 08/22/25 04:00 Temperature Pulse Rate 98 86 Respiratory Rate 20 Blood Pressure Pulse Oximetry 95 Oxygen Delivery Room Air 08/22/25 04:25 08/22/25 06:00 08/22/25 08:03 Temperature 37.1 C Pulse Rate 92 80 89 Respiratory Rate 18 20 Blood Pressure 144/89 H Pulse Oximetry 95 Oxygen Delivery 08/22/25 08:11 Temperature Pulse Rate 92 Respiratory Rate 20 Blood Pressure Pulse Oximetry Oxygen Delivery Intake/Output Intake/Output: Intake & Output 08/19/25 08/20/25 08/21/25 08/22/25 23:59 23:59 23:59 23:59 Intake Total 892.7 135 017 8472.2 Output Total 2825 1775 3025 1430 Balance -1932.9 -925 -2705 -155.8 Meds/Results Medications: Active Medications Generic Name Dose Route Start Last Admin Trade Name Freq PRN Reason Stop Dose Admin Albuterol/Ipratropium 3 ml 08/18/25 14:00 08/22/25 08:03 Ipratropium 0.5 Mg/Albuterol Sulfate 2.5 Mg (Base) Ampul.Neb 3 Ml INHALATION 3 ml Q6HRT ANNETTE Administration Alteplase, Recombinant 2 mg 08/20/25 21:24 Alteplase 2 Mg Vial (Cathflo) IV PUSH ONCE PRN Line Occlusion Dextrose 12.5 gm 08/15/25 07:56 Dextrose 50% 25 Gm/50 Ml Syringe IV PUSH PRN PRN Hypoglycemia Protocol Enoxaparin Sodium 80 mg 08/22/25 08:15 Enoxaparin 80 Mg/0.8 Ml Syringe SUB-Q Q12HR ANNETTE Famotidine 20 mg 08/10/25 21:00 08/21/25 20:17 Famotidine 20 Mg/2 Ml Vial IV PUSH 20 mg Q12HR ANNETTE Administration Fentanyl Citrate 25 mcg 08/19/25 17:31 08/22/25 06:21 Fentanyl Citrate Inj (*Crx) 100 Mcg/2 Ml Vial IV PUSH 25 mcg Q2H PRN Administration Pain Rated 7-10 Glucagon 1 mg 08/15/25 07:56 Glucagon For Inj 1 Mg Vial IM PRN PRN Hypoglycemia Protocol Glucose 15 gm 08/15/25 07:56 Glucose Oral Gel 15 Gm Of Glucse In 37.5 Gm Tube PO PRN PRN Hypoglycemia Protocol Hydrochlorothiazide 12.5 mg 08/11/25 09:00 08/12/25 10:31 Hydrochlorothiazide 12.5 Mg Capsule PO 12.5 mg On Hold: 08/12/25 11:48 QAM ANNETTE Administration Ibuprofen 800 mg in 200 mls @ 400 mls/hr 08/10/25 13:04 08/20/25 09:15 Caldolor 800 Mg/200 Ml IVPB Infused Q6H PRN Infusion Breakthrough Pain Rated 1-3 or NPO Piperacillin Sod/Tazobactam 50 mls @ 100 mls/hr 08/12/25 12:00 08/22/25 05:04 Sod 3.375 gm/ Sodium Chloride IVPB 100 mls/hr Q6H ANNETTE Administration Dextrose 1,000 mls @ 50 mls/hr 08/15/25 07:56 Dextrose 10% IV CONT .Q20H PRN if PN is interrupted Dextrose 1,000 mls @ 100 mls/hr 08/15/25 07:56 Dextrose 5% 1,000 Ml IVPB PRN PRN Hypoglycemia Protocol Micafungin Sodium 100 mg/ 100 mls @ 100 mls/hr 08/18/25 09:20 08/21/25 08:38 Sodium Chloride IVPB 100 mls/hr DAILY ANNETTE Administration Fat Emulsion Intravenous 250 mls @ 20.833 mls/hr 08/21/25 10:00 08/22/25 00:00 Lipids 20% IVPB Infused Q24H ANNETTE Infusion Multivitamins 1.25 ml/ 1,002.5 mls @ 70 mls/hr 08/21/25 11:00 08/22/25 00:59 Multivitamins 1.25 ml/ Amino IV CONT 70 mls/hr Acids/Electrolytes/Dextrose .[id number] ANNETTE Administration Protocol Insulin Aspart 3 - 6 units 08/19/25 12:00 08/22/25 06:03 Insulin Aspart (*Bkc) 100 Units/Ml SUB-Q 6 units Q6HR ANNETTE Administration Protocol Losartan Potassium 100 mg 08/11/25 09:00 08/12/25 10:30 Losartan Potassium 100 Mg Tablet PO 100 mg On Hold: 08/12/25 11:48 DAILY ANNETTE Administration Miscellaneous Information 1 each 08/21/25 00:01 Please Renew Zosyn. Per [employer] Procedure, It Will Discontinue If Not Renewed. XX 09/20/25 00:00 CLARIFY ANNETTE Naloxone HCl 0.1 mg 08/10/25 13:04 Naloxone Hcl 0.4 Mg/Ml Vial IV PUSH Q2M PRN Opiate Reversal Ondansetron HCl 4 mg 08/10/25 13:04 08/20/25 20:15 Ondansetron Inj 4 Mg/2 Ml Vial IV PUSH 4 mg Q4H PRN Administration Nausea And Vomiting Sodium Chloride 10 ml 08/15/25 14:00 08/22/25 05:28 Central Line Flush IV PUSH 10 ml Q8HR ANNETTE Administration Sodium Chloride 10 ml 08/15/25 11:41 Central Line Flush IV PUSH PRN PRN with TPN bag changes Sodium Chloride 20 ml 08/15/25 11:41 Central Line Flush IV PUSH PRN PRN after blood draws Trazodone HCl 50 mg 08/10/25 13:04 Trazodone Hcl 50 Mg Tablet PO On Hold: 08/12/25 11:49 HS PRN Insomnia Umeclidinium/Vilanterol 1 puff 08/10/25 14:00 08/22/25 08:14 Umeclidinium/Vilanterol 62.5-25 Mcg Ellipta INHALATION 1 puff DAILY ANNETTE Administration Radiology Results: ITS Impressions Chest CTA 08/13/25 16:42 IMPRESSION: 1. Negative for pulmonary embolism. Bilateral probable pneumonia. 2. Intra-abdominal free air possibly postoperative in nature relatively unchanged compared to the previous exam Abdomen/Pelvis CT 08/15/25 08:38 IMPRESSION: 1. Ileus and/or developing small bowel obstruction. 2. Free intraperitoneal air favoring recent postoperative change. 3. Peritonitis, with scattered ascites and interloop fluid. 4. Worrisome for cystitis, unless recent catheter manipulation. 5. Significant bibasilar atelectasis and/or airspace disease, with small left effusion. Catheter Placement CT 08/16/25 14:04 IMPRESSION: 1. Successful CT-guided right transgluteal abscess drainage. 2. 60 mL fluid was sent for aerobic and anaerobic cultures. 3. The catheter will be managed by Dr. Anderson. Small Bowel X-Ray 08/17/25 13:42 Impression: 1: Incomplete small bowel study with delayed passage of contrast into the distal small bowel. Study terminated due to complications with patient. Proximal small bowel dilated with multiple dilated distal loops of small bowel. Findings compatible with obstruction. Chest X-Ray 08/19/25 07:52 Impression: 1: Bibasilar airspace disease may represent pneumonia and/or atelectasis. Labs Labs: Laboratory Results - last 24 hr 08/17/25 08/21/25 08/21/25 14:26 05:17 05:17 WBC 15.6 H Cancelled RBC 3.35 L Hgb Hct MCV MCH MCHC RDW Plt Count MPV Immature Gran % (Auto) Neut % (Auto) Lymph % (Auto) [place] % (Auto) Eos % (Auto) Baso % (Auto) Lymph # (Auto) [place] # (Auto) Eos # (Auto) Baso # (Auto) Abs Immat Gran (auto) Absolute Neuts (auto) Absolute Nucleated RBC Nucleated RBC % % Immature Plt Fraction PT INR APTT Sodium Potassium Chloride Carbon Dioxide Anion Gap BUN Creatinine Estim Creat Clear Calc Estimated GFR Glucose POC Capillary Glucose Calcium Phosphorus Magnesium Transferrin Total Bilirubin AST ALT Alkaline Phosphatase C-Reactive Protein Total Protein Albumin Triglycerides M. pneumoniae (PCR) Negative 08/21/25 08/21/25 08/21/25 05:17 05:17 05:17 WBC RBC Cancelled Hgb 10.9 L Cancelled Hct 34.1 L Cancelled MCV 101.8 H MCH MCHC RDW Plt Count MPV Immature Gran % (Auto) Neut % (Auto) Lymph % (Auto) [place] % (Auto) Eos % (Auto) Baso % (Auto) Lymph # (Auto) [place] # (Auto) Eos # (Auto) Baso # (Auto) Abs Immat Gran (auto) Absolute Neuts (auto) Absolute Nucleated RBC Nucleated RBC % % Immature Plt Fraction PT INR APTT Sodium Potassium Chloride Carbon Dioxide Anion Gap BUN Creatinine Estim Creat Clear Calc Estimated GFR Glucose POC Capillary Glucose Calcium Phosphorus Magnesium Transferrin Total Bilirubin AST ALT Alkaline Phosphatase C-Reactive Protein Total Protein Albumin Triglycerides M. pneumoniae (PCR) 08/21/25 08/21/25 08/21/25 05:17 05:17 05:17 WBC RBC Hgb Hct MCV Cancelled MCH 32.5 Cancelled MCHC 32.0 Cancelled RDW 14.2 Plt Count MPV Immature Gran % (Auto) Neut % (Auto) Lymph % (Auto) [place] % (Auto) Eos % (Auto) Baso % (Auto) Lymph # (Auto) [place] # (Auto) Eos # (Auto) Baso # (Auto) Abs Immat Gran (auto) Absolute Neuts (auto) Absolute Nucleated RBC Nucleated RBC % % Immature Plt Fraction PT INR APTT Sodium Potassium Chloride Carbon Dioxide Anion Gap BUN Creatinine Estim Creat Clear Calc Estimated GFR Glucose POC Capillary Glucose Calcium Phosphorus Magnesium Transferrin Total Bilirubin AST ALT Alkaline Phosphatase C-Reactive Protein Total Protein Albumin Triglycerides M. pneumoniae (PCR) 08/21/25 08/21/25 08/21/25 05:17 05:17 05:17 WBC RBC Hgb Hct MCV MCH MCHC RDW Cancelled Plt Count 555 H Cancelled MPV 8.0 Cancelled Immature Gran % (Auto) 3.4 H Neut % (Auto) Lymph % (Auto) [place] % (Auto) Eos % (Auto) Baso % (Auto) Lymph # (Auto) [place] # (Auto) Eos # (Auto) Baso # (Auto) Abs Immat Gran (auto) Absolute Neuts (auto) Absolute Nucleated RBC Nucleated RBC % % Immature Plt Fraction PT INR APTT Sodium Potassium Chloride Carbon Dioxide Anion Gap BUN Creatinine Estim Creat Clear Calc Estimated GFR Glucose POC Capillary Glucose Calcium Phosphorus Magnesium Transferrin Total Bilirubin AST ALT Alkaline Phosphatase C-Reactive Protein Total Protein Albumin Triglycerides M. pneumoniae (PCR) 08/21/25 08/21/25 08/21/25 05:17 05:17 05:17 WBC RBC Hgb Hct MCV MCH MCHC RDW Plt Count MPV Immature Gran % (Auto) Cancelled Neut % (Auto) 78.6 H Cancelled Lymph % (Auto) 8.1 L Cancelled [place] % (Auto) 7.0 Eos % (Auto) Baso % (Auto) Lymph # (Auto) [place] # (Auto) Eos # (Auto) Baso # (Auto) Abs Immat Gran (auto) Absolute Neuts (auto) Absolute Nucleated RBC Nucleated RBC % % Immature Plt Fraction PT INR APTT Sodium Potassium Chloride Carbon Dioxide Anion Gap BUN Creatinine Estim Creat Clear Calc Estimated GFR Glucose POC Capillary Glucose Calcium Phosphorus Magnesium Transferrin Total Bilirubin AST ALT Alkaline Phosphatase C-Reactive Protein Total Protein Albumin Triglycerides M. pneumoniae (PCR) 08/21/25 08/21/25 08/21/25 05:17 05:17 05:17 WBC RBC Hgb Hct MCV MCH MCHC RDW Plt Count MPV Immature Gran % (Auto) Neut % (Auto) Lymph % (Auto) [place] % (Auto) Cancelled Eos % (Auto) 2.3 Cancelled Baso % (Auto) 0.6 Cancelled Lymph # (Auto) 1.28 [place] # (Auto) Eos # (Auto) Baso # (Auto) Abs Immat Gran (auto) Absolute Neuts (auto) Absolute Nucleated RBC Nucleated RBC % % Immature Plt Fraction PT INR APTT Sodium Potassium Chloride Carbon Dioxide Anion Gap BUN Creatinine Estim Creat Clear Calc Estimated GFR Glucose POC Capillary Glucose Calcium Phosphorus Magnesium Transferrin Total Bilirubin AST ALT Alkaline Phosphatase C-Reactive Protein Total Protein Albumin Triglycerides M. pneumoniae (PCR) 08/21/25 08/21/25 08/21/25 05:17 05:17 05:17 WBC RBC Hgb Hct MCV MCH MCHC RDW Plt Count MPV Immature Gran % (Auto) Neut % (Auto) Lymph % (Auto) [place] % (Auto) Eos % (Auto) Baso % (Auto) Lymph # (Auto) Cancelled [place] # (Auto) 1.1 H Cancelled Eos # (Auto) 0.4 H Cancelled Baso # (Auto) 0.1 Abs Immat Gran (auto) Absolute Neuts (auto) Absolute Nucleated RBC Nucleated RBC % % Immature Plt Fraction PT INR APTT Sodium Potassium Chloride Carbon Dioxide Anion Gap BUN Creatinine Estim Creat Clear Calc Estimated GFR Glucose POC Capillary Glucose Calcium Phosphorus Magnesium Transferrin Total Bilirubin AST ALT Alkaline Phosphatase C-Reactive Protein Total Protein Albumin Triglycerides M. pneumoniae (PCR) 08/21/25 08/21/25 08/21/25 05:17 05:17 05:17 WBC RBC Hgb Hct MCV MCH MCHC RDW Plt Count MPV Immature Gran % (Auto) Neut % (Auto) Lymph % (Auto) [place] % (Auto) Eos % (Auto) Baso % (Auto) Lymph # (Auto) [place] # (Auto) Eos # (Auto) Baso # (Auto) Cancelled Abs Immat Gran (auto) 0.54 H Cancelled Absolute Neuts (auto) 12.4 H Cancelled Absolute Nucleated RBC 0.000 Nucleated RBC % % Immature Plt Fraction PT INR APTT Sodium Potassium Chloride Carbon Dioxide Anion Gap BUN Creatinine Estim Creat Clear Calc Estimated GFR Glucose POC Capillary Glucose Calcium Phosphorus Magnesium Transferrin Total Bilirubin AST ALT Alkaline Phosphatase C-Reactive Protein Total Protein Albumin Triglycerides M. pneumoniae (PCR) 08/21/25 08/21/25 08/21/25 05:17 05:17 10:46 WBC RBC Hgb Hct MCV MCH MCHC RDW Plt Count MPV Immature Gran % (Auto) Neut % (Auto) Lymph % (Auto) [place] % (Auto) Eos % (Auto) Baso % (Auto) Lymph # (Auto) [place] # (Auto) Eos # (Auto) Baso # (Auto) Abs Immat Gran (auto) Absolute Neuts (auto) Absolute Nucleated RBC Cancelled Nucleated RBC % 0.0 Cancelled % Immature Plt Fraction Cancelled PT INR APTT 75.3 H Sodium 138 Potassium 3.7 Chloride 106 Carbon Dioxide 25 Anion Gap 7 BUN 10 Creatinine 1.11 Estim Creat Clear Calc 64 Estimated GFR > 60 Glucose 93 POC Capillary Glucose Calcium 8.4 Phosphorus Magnesium 2.2 Transferrin 113 L Total Bilirubin 0.7 AST 37 ALT 12 Alkaline Phosphatase 72 C-Reactive Protein Total Protein 6.5 Albumin 3.0 L Triglycerides M. pneumoniae (PCR) 08/21/25 08/21/25 08/21/25 11:58 18:24 23:42 WBC RBC Hgb Hct MCV MCH MCHC RDW Plt Count MPV Immature Gran % (Auto) Neut % (Auto) Lymph % (Auto) [place] % (Auto) Eos % (Auto) Baso % (Auto) Lymph # (Auto) [place] # (Auto) Eos # (Auto) Baso # (Auto) Abs Immat Gran (auto) Absolute Neuts (auto) Absolute Nucleated RBC Nucleated RBC % % Immature Plt Fraction PT INR APTT Sodium Potassium Chloride Carbon Dioxide Anion Gap BUN Creatinine Estim Creat Clear Calc Estimated GFR Glucose POC Capillary Glucose 123 H 153 H 153 H Calcium Phosphorus Magnesium Transferrin Total Bilirubin AST ALT Alkaline Phosphatase C-Reactive Protein Total Protein Albumin Triglycerides M. pneumoniae (PCR) 08/22/25 04:27 WBC 13.5 H RBC 3.16 L Hgb 10.2 L Hct 32.9 L MCV 104.1 H MCH 32.3 MCHC 31.0 L RDW 14.0 Plt Count 616 H MPV 8.3 Immature Gran % (Auto) 3.5 H Neut % (Auto) 75.5 H Lymph % (Auto) 9.6 L [place] % (Auto) 7.3 Eos % (Auto) 3.5 Baso % (Auto) 0.6 Lymph # (Auto) 1.30 [place] # (Auto) 1.0 H Eos # (Auto) 0.5 H Baso # (Auto) 0.1 Abs Immat Gran (auto) 0.47 H Absolute Neuts (auto) 10.2 H Absolute Nucleated RBC 0.000 Nucleated RBC % 0.0 % Immature Plt Fraction PT 16.8 H INR 1.4 APTT 41.7 H Sodium 127 L Potassium 5.5 H Chloride 97 L Carbon Dioxide 27 Anion Gap 3 L BUN 10 Creatinine 1.01 Estim Creat Clear Calc 70 Estimated GFR > 60 Glucose 387 H POC Capillary Glucose Calcium 8.2 L Phosphorus 6.4 H Magnesium 2.3 Transferrin 102 L Total Bilirubin 0.4 AST 32 ALT 11 Alkaline Phosphatase 44 C-Reactive Protein 12.3 H Total Protein 5.9 L Albumin 2.8 L Triglycerides 198 H M. pneumoniae (PCR)
[2025-08-22] MEDS: ENOXAPARIN 80 MG/0.8 ML SYRINGE SUB-Q ×2 (09:24→20:03)
[2025-08-22] MEDS: FAMOTIDINE 20 MG/2 ML VIAL IV PUSH ×2 (09:24→20:03)
[2025-08-22] MEDS: FAT EMULSIONS IV 20% 250 ML IVPB (09:24)
[2025-08-22] MEDS: MICAFUNGIN SODIUM 100 MG in SODIUM CHLORIDE 0.9% IV 100 ML IVPB (09:25)
[2025-08-22] MEDS: INSULIN HUMAN REGULAR (*BKC) 100 UNITS/ML 10 UNITS IV PUSH (09:57)
[2025-08-22] MEDS: DEXTROSE 50% 25 GM/50 ML SYRINGE IV PUSH (09:57)
[2025-08-22 12:47] LABS: Anion Gap 3 mmol/L (4-12); Blood Urea Nitrogen 12 mg/dL (9-20); Calcium 8.7 mg/dL (8.4-10.2); Carbon Dioxide 30 mmol/L (22-30); Chloride 102 mmol/L (98-107); Estimated CRCL calculation 85 ml/min; Estimated Glomerular Filt Rate > 60; Glucose 106 mg/dL (65-110); Potassium 3.2 mmol/L (3.4-5.0); Sodium 135 mmol/L (137-145)
--- NOTE | 2025-08-22 13:42 | PCOTNOTE ---
The patient treatment was not able to be completed. Patient reports just getting back to bed and is not feeling well enough to participate at this time. Will plan to continue treatment per plan of care.
--- NOTE | 2025-08-22 13:57 | PCRCNOTE ---
pt refused his 1400 breathing tx, states he is breathing fine and doesnt need it. pt is in no resp distress and numbers all look good. will continue at 1999.
[2025-08-22] MEDS: POTASSIUM CHLORIDE INJ 40 MEQ in SODIUM CHLORIDE 0.9% IV 500 ML 130 MEQ IVPB (15:38)
--- NOTE | 2025-08-22 16:08 | PM.IMPN2 ---
Subjective Date/time seen: 08/22/25 16:08 Interval history: Casey Kearns is a 60 year old male with a past medical history of PE, HTN, DVT, bronchiectasis, diverticulitis requiring several inpatient admissions presented to [facility] on 08/10 for an elected sigmoidectomy to avoid further episodes of diverticulitis. Patient was initially scheduled for the sigmoidectomy in March 2025 but had an abnormal chest x-ray and bronchiectasis on a chest CT. Patient followed up with straw hat brim cutter operator Dr. Disla for further workup of his abnormal CT. Patient was able to pass a [address] Disla found past CT scans that showed the bronchi ectatic change had been there for many years. Patient also has a history of hypospadias with meatal stenosis creating difficulty passing a Anand catheter. Urology was requested to place bilateral ureteral stents for assistance in identifying the ureters and perform a urethral meatal dilatation. Patient has a history of a right leg DVT and PE. He takes Xarelto 20 mg daily for anticoagulation. 08/10/2025: Patient underwent a hand assisted laparoscopic sigmoidectomy with anastomosis and a drain placement 08/17/2025: Underwent an exploratory laparotomy, small-bowel perforation, adhesiolysis, removal of pigtail catheter drain. 08/19/2025: 2nd look laparotomy, abdominal washout 08/19/2025: Successfully extubated 08/20/2025: Patient seen and examined the ICU, remains extubated, on 2 L nasal cannula, is awake, alert, oriented, able to answer questions, overnight he had some pain but this has improved this morning. Urine output has been adequate, afebrile, hemodynamically stable. Denies any nausea, vomiting, shortness of breath or chest pain 08/21/2025: Transferred to IMU, overnight had episode of vomiting and ultimately did not tolerate tube feeds. Feeds were halted, LIS started on NG tube. Patient was seen by surgery and recommended conservative management, with continued NG decompression, and resumption of TPN as he remains NPO. 08/22: K 5.5 > 3.2 on repeat despite no potassium reducing therapy (was unable to give lokelma due to NPO status, had given insulin and duoneb). Will rely more on latter result, and replace K. Once K is stable can transfer to floor. Surgery continues to follow, SBO may be more ileus picture, they are obtaining KUB. Review of Systems Review of Systems: All systems reviewed & are unremarkable except as noted in HPI and below Exam Narrative: General: Awake, alert, in no acute distress NG in place, on decompression. Getting TPN via peripheral line now. HEENT:? Pupils equal and reactive, sclera is clear, Neck:? Supple Respiratory:? Coarse breath sounds at bases bilaterally, adequate air entry, no wheezing Cardiac:? S1-S2 is normal, regular rate and rhythm Abdomen:? Soft, tender to palpation, nondistended, hypoactive bowel sounds were appreciated. Abdominal dressing in place, clean, dry and intact Extremities:? No edema, palpable pedal pulses Neuro:? Patient is awake, alert, oriented, nonfocal, answers to questions appropriately and follows simple commands Skin:? Warm and dry Psych:? Normal mentation and affect Objective Data Vital Signs Vital Signs: Vital Signs - 24 hr 08/21/25 18:00 08/21/25 20:00 08/21/25 20:00 Temperature 98.5 F Pulse Rate 94 92 Respiratory Rate 20 Blood Pressure 150/74 H Pulse Oximetry 91 92 Oxygen Delivery Room Air 08/21/25 20:00 08/21/25 20:13 08/21/25 20:16 Temperature Pulse Rate 90 96 Respiratory Rate 20 Blood Pressure Pulse Oximetry 92 Oxygen Delivery Room Air 08/21/25 20:21 08/21/25 21:47 08/21/25 23:17 Temperature 98.6 F Pulse Rate 96 100 90 Respiratory Rate 20 20 Blood Pressure 147/68 H Pulse Oximetry 95 Oxygen Delivery 08/21/25 23:53 08/22/25 00:00 08/22/25 01:57 Temperature Pulse Rate 92 92 Respiratory Rate 20 Blood Pressure Pulse Oximetry 95 Oxygen Delivery Room Air 08/22/25 02:00 08/22/25 02:06 08/22/25 04:00 Temperature Pulse Rate 90 98 Respiratory Rate 20 Blood Pressure Pulse Oximetry 95 Oxygen Delivery Room Air 08/22/25 04:00 08/22/25 04:25 08/22/25 06:00 Temperature 98.7 F Pulse Rate 86 92 80 Respiratory Rate 18 Blood Pressure 144/89 H Pulse Oximetry 95 Oxygen Delivery 08/22/25 08:00 08/22/25 08:00 08/22/25 08:03 Temperature 97.4 F L Pulse Rate 90 81 89 Respiratory Rate 16 20 Blood Pressure 152/82 H Pulse Oximetry 95 Oxygen Delivery 08/22/25 08:11 08/22/25 09:40 08/22/25 09:45 Temperature Pulse Rate 92 101 H 101 H Respiratory Rate 20 20 20 Blood Pressure Pulse Oximetry Oxygen Delivery 08/22/25 10:00 08/22/25 12:00 08/22/25 12:00 Temperature 98.4 F Pulse Rate 87 93 90 Respiratory Rate 18 Blood Pressure 130/82 Pulse Oximetry 97 Oxygen Delivery Intake/Output Intake/Output: Intake & Output 08/19/25 08/20/25 08/21/25 08/22/25 23:59 23:59 23:59 23:59 Intake Total 892.0 991 775 5021.2 Output Total 2825 1775 3025 1430 Balance -1932.9 -925 -2605 -155.8 Meds/Results Medications: Active Medications Generic Name Dose Route Start Last Admin Trade Name Freq PRN Reason Stop Dose Admin Albuterol/Ipratropium 3 ml 08/18/25 14:00 08/22/25 13:57 Ipratropium 0.5 Mg/Albuterol Sulfate 2.5 Mg (Base) Ampul.Neb 3 Ml INHALATION Not Given Q6HRT ANNETTE Alteplase, Recombinant 2 mg 08/20/25 21:24 Alteplase 2 Mg Vial (Cathflo) IV PUSH ONCE PRN Line Occlusion Dextrose 12.5 gm 08/15/25 07:56 Dextrose 50% 25 Gm/50 Ml Syringe IV PUSH PRN PRN Hypoglycemia Protocol Enoxaparin Sodium 80 mg 08/22/25 08:15 08/22/25 09:24 Enoxaparin 80 Mg/0.8 Ml Syringe SUB-Q 80 mg Q12HR ANNETTE Administration Famotidine 20 mg 08/10/25 21:00 08/22/25 09:24 Famotidine 20 Mg/2 Ml Vial IV PUSH 20 mg Q12HR ANNETTE Administration Fentanyl Citrate 25 mcg 08/19/25 17:31 08/22/25 09:57 Fentanyl Citrate Inj (*Crx) 100 Mcg/2 Ml Vial IV PUSH 25 mcg Q2H PRN Administration Pain Rated 7-10 Glucagon 1 mg 08/15/25 07:56 Glucagon For Inj 1 Mg Vial IM PRN PRN Hypoglycemia Protocol Glucose 15 gm 08/15/25 07:56 Glucose Oral Gel 15 Gm Of Glucse In 37.5 Gm Tube PO PRN PRN Hypoglycemia Protocol Hydrochlorothiazide 12.5 mg 08/11/25 09:00 08/12/25 10:31 Hydrochlorothiazide 12.5 Mg Capsule PO 12.5 mg On Hold: 08/12/25 11:48 QAM ANNETTE Administration Ibuprofen 800 mg in 200 mls @ 400 mls/hr 08/10/25 13:04 08/20/25 09:15 Caldolor 800 Mg/200 Ml IVPB Infused Q6H PRN Infusion Breakthrough Pain Rated 1-3 or NPO Dextrose 1,000 mls @ 50 mls/hr 08/15/25 07:56 Dextrose 10% IV CONT .Q20H PRN if PN is interrupted Dextrose 1,000 mls @ 100 mls/hr 08/15/25 07:56 Dextrose 5% 1,000 Ml IVPB PRN PRN Hypoglycemia Protocol Micafungin Sodium 100 mg/ 100 mls @ 100 mls/hr 08/18/25 09:20 08/22/25 09:25 Sodium Chloride IVPB 100 mls/hr DAILY ANNETTE Administration Fat Emulsion Intravenous 250 mls @ 20.833 mls/hr 08/21/25 10:00 08/22/25 09:24 Lipids 20% IVPB 250 mls/hr Q24H ANNETTE Administration Multivitamins 1.25 ml/ 1,002.5 mls @ 70 mls/hr 08/22/25 14:00 Multivitamins 1.25 ml/ Amino IV CONT Acids/Electrolytes/Dextrose .[id number] ANNETTE Protocol Potassium Chloride 40 meq/ 520 mls @ 130 mls/hr 08/22/25 13:43 Sodium Chloride IVPB 08/22/25 17:42 ONCE ONE Insulin Aspart 3 - 6 units 08/19/25 12:00 08/22/25 06:03 Insulin Aspart (*Bkc) 100 Units/Ml SUB-Q 6 units Q6HR ANNETTE Administration Protocol Losartan Potassium 100 mg 08/11/25 09:00 08/12/25 10:30 Losartan Potassium 100 Mg Tablet PO 100 mg On Hold: 08/12/25 11:48 DAILY ANNETTE Administration Miscellaneous Information 1 each 08/21/25 00:01 Please Renew Zosyn. Per [employer] Procedure, It Will Discontinue If Not Renewed. XX 09/20/25 00:00 CLARIFY ANNETTE Naloxone HCl 0.1 mg 08/10/25 13:04 Naloxone Hcl 0.4 Mg/Ml Vial IV PUSH Q2M PRN Opiate Reversal Ondansetron HCl 4 mg 08/10/25 13:04 08/20/25 20:15 Ondansetron Inj 4 Mg/2 Ml Vial IV PUSH 4 mg Q4H PRN Administration Nausea And Vomiting Sodium Chloride 10 ml 08/15/25 14:00 08/22/25 05:28 Central Line Flush IV PUSH 10 ml Q8HR ANNETTE Administration Sodium Chloride 10 ml 08/15/25 11:41 Central Line Flush IV PUSH PRN PRN with TPN bag changes Sodium Chloride 20 ml 08/15/25 11:41 Central Line Flush IV PUSH PRN PRN after blood draws Trazodone HCl 50 mg 08/10/25 13:04 Trazodone Hcl 50 Mg Tablet PO On Hold: 08/12/25 11:49 HS PRN Insomnia Umeclidinium/Vilanterol 1 puff 08/10/25 14:00 08/22/25 08:14 Umeclidinium/Vilanterol 62.5-25 Mcg Ellipta INHALATION 1 puff DAILY ANNETTE Administration Radiology Results: ITS Impressions Chest CTA 08/13/25 16:42 IMPRESSION: 1. Negative for pulmonary embolism. Bilateral probable pneumonia. 2. Intra-abdominal free air possibly postoperative in nature relatively unchanged compared to the previous exam Abdomen/Pelvis CT 08/15/25 08:38 IMPRESSION: 1. Ileus and/or developing small bowel obstruction. 2. Free intraperitoneal air favoring recent postoperative change. 3. Peritonitis, with scattered ascites and interloop fluid. 4. Worrisome for cystitis, unless recent catheter manipulation. 5. Significant bibasilar atelectasis and/or airspace disease, with small left effusion. Catheter Placement CT 08/16/25 14:04 IMPRESSION: 1. Successful CT-guided right transgluteal abscess drainage. 2. 60 mL fluid was sent for aerobic and anaerobic cultures. 3. The catheter will be managed by Dr. Anderson. Small Bowel X-Ray 08/17/25 13:42 Impression: 1: Incomplete small bowel study with delayed passage of contrast into the distal small bowel. Study terminated due to complications with patient. Proximal small bowel dilated with multiple dilated distal loops of small bowel. Findings compatible with obstruction. Chest X-Ray 08/19/25 07:52 Impression: 1: Bibasilar airspace disease may represent pneumonia and/or atelectasis. Abdomen X-Ray 08/22/25 10:54 Impression: 1: Dilated small bowel with relative decompression of the colon. Differential diagnosis includes postoperative ileus and partial small bowel obstruction. Labs Labs: Laboratory Results - last 24 hr 08/17/25 08/21/25 08/21/25 14:26 18:24 23:42 WBC RBC Hgb Hct MCV MCH MCHC RDW Plt Count MPV Immature Gran % (Auto) Neut % (Auto) Lymph % (Auto) [place] % (Auto) Eos % (Auto) Baso % (Auto) Lymph # (Auto) [place] # (Auto) Eos # (Auto) Baso # (Auto) Abs Immat Gran (auto) Absolute Neuts (auto) Absolute Nucleated RBC Nucleated RBC % PT INR APTT Sodium Potassium Chloride Carbon Dioxide Anion Gap BUN Creatinine Estim Creat Clear Calc Estimated GFR Glucose POC Capillary Glucose 153 H 153 H Calcium Phosphorus Magnesium Transferrin Total Bilirubin AST ALT Alkaline Phosphatase C-Reactive Protein Total Protein Albumin Triglycerides M. pneumoniae (PCR) Negative 08/22/25 08/22/25 08/22/25 04:27 09:20 11:06 WBC 13.5 H RBC 3.16 L Hgb 10.2 L Hct 32.9 L MCV 104.1 H MCH 32.3 MCHC 31.0 L RDW 14.0 Plt Count 616 H MPV 8.3 Immature Gran % (Auto) 3.5 H Neut % (Auto) 75.5 H Lymph % (Auto) 9.6 L [place] % (Auto) 7.3 Eos % (Auto) 3.5 Baso % (Auto) 0.6 Lymph # (Auto) 1.30 [place] # (Auto) 1.0 H Eos # (Auto) 0.5 H Baso # (Auto) 0.1 Abs Immat Gran (auto) 0.47 H Absolute Neuts (auto) 10.2 H Absolute Nucleated RBC 0.000 Nucleated RBC % 0.0 PT 16.8 H INR 1.4 APTT 41.7 H Sodium 127 L Potassium 5.5 H Chloride 97 L Carbon Dioxide 27 Anion Gap 3 L BUN 10 Creatinine 1.01 Estim Creat Clear Calc 70 Estimated GFR > 60 Glucose 387 H POC Capillary Glucose 118 H 170 H Calcium 8.2 L Phosphorus 6.4 H Magnesium 2.3 Transferrin 102 L Total Bilirubin 0.4 AST 32 ALT 11 Alkaline Phosphatase 44 C-Reactive Protein 12.3 H Total Protein 5.9 L Albumin 2.8 L Triglycerides 198 H M. pneumoniae (PCR) 08/22/25 12:18 WBC RBC Hgb Hct MCV MCH MCHC RDW Plt Count MPV Immature Gran % (Auto) Neut % (Auto) Lymph % (Auto) [place] % (Auto) Eos % (Auto) Baso % (Auto) Lymph # (Auto) [place] # (Auto) Eos # (Auto) Baso # (Auto) Abs Immat Gran (auto) Absolute Neuts (auto) Absolute Nucleated RBC Nucleated RBC % PT INR APTT Sodium 135 L Potassium 3.2 L Chloride 102 Carbon Dioxide 30 Anion Gap 3 L BUN 12 Creatinine 0.82 Estim Creat Clear Calc 85 Estimated GFR > 60 Glucose 106 POC Capillary Glucose Calcium 8.7 Phosphorus Magnesium Transferrin Total Bilirubin AST ALT Alkaline Phosphatase C-Reactive Protein Total Protein Albumin Triglycerides M. pneumoniae (PCR) Assessment and Plan Assessment and Plan (1) Obstruction of small intestine after surgical procedure: Code(s): K91.30 - Postprocedural intestinal obstruction, unspecified as to partial versus complete Status: Acute Assessment and Plan: Was found to have small-bowel obstruction after extubation and transfer from ICU as he had vomiting of tube feeds overnight. Tube feeds were held and placed on management suction, surgery is on board and managing as SBO. Patient has been NPO once more, TPN was resumed. Surgery considers this may be postoperative ileus versus SBO, they have ordered KUB to assess. -management per surgery -maintain NPO -TPN, currently through peripheral line as there was concern that TPN was causing hyperkalemia severe hyperglycemia, however this may not be the case. (2) Acute respiratory failure: Code(s): J96.00 - Acute respiratory failure, unspecified whether with hypoxia or hypercapnia Status: Resolved Assessment and Plan: Acute respiratory failure likely related to anesthesia and surgery for small bowel perforation on 08/18 -patient currently on CMV mode of ventilation, peep of 5, 50% FiO2, will wean FiO2 to maintain O2 sats > 92% -continue DuoNebs -08/19: Successfully extubated, currently on 2 L nasal cannula with adequate O2 sats Continue incentive spirometry -08/20: Continues to be stable, transferred to floor. -08/21: Resolved (3) Bowel perforation: Code(s): K63.1 - Perforation of intestine (nontraumatic) Status: Acute Assessment and Plan: 08/18: Exploratory laparotomy, small-bowel perforation, adhesiolysis, removal of pigtail catheter drain. 08/17: Patient's pigtail drain had entry contents, small-bowel follow-through with water-soluble contrast was consistent with small-bowel obstruction 08/19: Second-look laparotomy with abdominal washout -discussed with surgery, patient did have a perforation of the jejunum also had enteric contents in the peritoneal cavity -continue Zosyn (08/18) -continue micafungin(08/19) 08/20: discussed with surgery this morning, recommended starting trickle tube feeds at 10 mL/hour, hold TPN 08/21: TPN resumed as SBO has continued, and patient was not tolerating tube feeds (4) Intra-abdominal abscess: Code(s): K65.1 - Peritoneal abscess Status: Acute Assessment and Plan: 08/16/2025: Status post percutaneous drainage by Interventional Radiology for pelvic fluid collection status post recent sigmoidectomy (CT-guided right transgluteal abscess drainage catheter placement) (5) Protein-calorie malnutrition, severe: Code(s): E43 - Unspecified severe protein-calorie malnutrition Status: Acute Assessment and Plan: On TPN at this time as he is NPO due to SBO/ileus (6) Status post colon resection: Code(s): Z90.49 - Acquired absence of other specified parts of digestive tract Status: Acute Assessment and Plan: 08/10/2025: Sigmoidectomy for recurring diverticulitis (7) History of DVT (deep vein thrombosis): Code(s): Z86.718 - Personal history of other venous thrombosis and embolism Status: Acute Assessment and Plan: Patient has been on Xarelto as outpatient which is currently on hold -continue prophylactic Lovenox per surgery (8) Bronchiectasis: Qualifiers: Bronchiectasis type: uncomplicated Qualified Code(s): J47.9 - Bronchiectasis, uncomplicated Code(s): J47.9 - Bronchiectasis, uncomplicated Status: Chronic Assessment and Plan: In March 2025 but had an abdominal chest x-ray and bronchiectasis on the chest CT. He followed up with Dr. Disla, the straw hat brim cutter operator, who did an extensive workup along with a 6 minute walk study which she passed. The straw hat brim cutter operator did find past CT scan that showed bronchiectatic changes. Patient was cleared for surgery. Plan Transferred to floor. DVT prophylaxis: Lovenox SQ Stress ulcer prophylaxis: Famotidine Nutrition: TPN Medical Record Review I have reviewed the following patient records and this information was taken into consideration when formulating the assessment and plan.: previous labs and previous hospitalizations Consultations Consultations: I have discussed the care of this pt with the consulting providers. Hospitalist MIPS Advance Care Plan I have confirmed that the patient's Advanced Care Plan is present, code status is documented, or surrogate decision maker is listed in patient medical record.: Yes Medication Reconciliation I have utilized all available resources to obtain, update and review the patients current medications (includes all prescriptions, OTC, herbals, cannabis, and nutritional supplements).: Yes
[2025-08-22 22:27] LABS: Anion Gap 1 mmol/L (4-12); Blood Urea Nitrogen 11 mg/dL (9-20); Calcium 8.5 mg/dL (8.4-10.2); Carbon Dioxide 29 mmol/L (22-30); Chloride 104 mmol/L (98-107); Estimated CRCL calculation 82 ml/min; Estimated Glomerular Filt Rate > 60; Glucose 117 mg/dL (65-110); Potassium 3.5 mmol/L (3.4-5.0); Sodium 134 mmol/L (137-145)
[2025-08-23] VITALS (13 sets, daily range): BP systolic 121–142; BP diastolic 64–79; PULSE 76–90; RESP 16–20; TEMP 36.6–36.8; O2SAT 95–98
[2025-08-23] MEDS: fentaNYL CITRATE INJ (*CRX) 100 MCG/2 ML VIAL 25 MCG IV PUSH (00:10)
[2025-08-23] MEDS: IBUPROFEN IV 800 MG/200 ML 800 MG/200 ML BAG 400 MG IVPB ×3 (03:00→23:40)
[2025-08-23] MEDS: IPRATROPIUM 0.5 MG/ALBUTEROL SULFATE 2.5 MG (BASE) AMPUL.NEB 3 ML INHALATION ×4 (03:06→21:27)
[2025-08-23] MEDS: CENTRAL LINE FLUSH 10 ML IV PUSH ×3 (05:20→22:20)
[2025-08-23 05:45] LABS: Hematocrit 34.3 % (42.0-52.0); Hemoglobin 11.1 g/dL (14.0-18.0); Immature Granulocyte Percent A 2.6 % (0-0.5); Lymphocytes Absolute Auto 1.35 K/mm3 (0.9-3.2); Mean Corpuscular HGB Conc 32.4 g/dl (32-36); Mean Corpuscular Hemoglobin 32.2 pg (26-34); Mean Corpuscular Volume 99.4 fl (80-100); Nucleated Red Blood Cells Absolute Auto 0.000 K/mm3 (0.0-0.012); Nucleated Red Blood Cells Perc 0.0 % (0.0-0.2); Platelet Count Result 643 k/mm3 (150-375); Red Blood Count 3.45 M/mm3 (4.6-6.20); White Blood Count 11.9 K/mm3 (4.5-10.0)
[2025-08-23 06:10] LABS: Anion Gap 2 mmol/L (4-12); Blood Urea Nitrogen 12 mg/dL (9-20); CRP 6.2 mg/dL (<1.0); Calcium 8.2 mg/dL (8.4-10.2); Carbon Dioxide 30 mmol/L (22-30); Chloride 103 mmol/L (98-107); Estimated CRCL calculation 78 ml/min; Estimated Glomerular Filt Rate > 60; Glucose 122 mg/dL (65-110); Potassium 3.4 mmol/L (3.4-5.0); Sodium 135 mmol/L (137-145)
[2025-08-23] MEDS: UMECLIDINIUM/VILANTEROL 62.5-25 MCG ELLIPTA 1 PUFF INHALATION (07:47)
[2025-08-23] MEDS: ENOXAPARIN 80 MG/0.8 ML SYRINGE SUB-Q ×2 (08:07→21:54)
[2025-08-23] MEDS: FAMOTIDINE 20 MG/2 ML VIAL IV PUSH ×2 (08:07→21:53)
[2025-08-23] MEDS: MICAFUNGIN SODIUM 100 MG in SODIUM CHLORIDE 0.9% IV 100 ML IVPB (09:12)
--- NOTE | 2025-08-23 09:42 | P.PNGS_ITS ---
Progress Note: A&P Assessment and Plan (1) Bowel perforation: Code(s): K63.1 - Perforation of intestine (nontraumatic) Status: Acute Assessment and Plan: Laparotomy and repair 08/17/2025. Second-look laparotomy with abdominal washout, 08/19/2025. Patient had bowel movement about 4:00 a.m. today. Cannot recall if it was loose or formed. Still has abdominal distension and very few bowel sounds. Wound is healing well. MERON drain shows only serosanguineous fluid. Continue NPO, serial exam, labs. (2) Status post colon resection: Code(s): Z90.49 - Acquired absence of other specified parts of digestive tract Status: Acute Assessment and Plan: Hand access laparoscopic sigmoidectomy was the initial procedure and was performed 08/10/2025. (3) Intra-abdominal abscess: Code(s): K65.1 - Peritoneal abscess Status: Acute Assessment and Plan: Percutaneous CT-guided pelvic drain placed transgluteal 08/16/2025. Cultures grew Avani albicans. Continues on micafungin and has pelvic drain. Will get Infectious Disease consultation regarding antimicrobial management. 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 Patient had history pulmonary embolism is reason for chronic anticoagulation. (5) Protein-calorie malnutrition, severe: Code(s): E43 - Unspecified severe protein-calorie malnutrition Status: Acute Assessment and Plan: Resume full TPN with lipids. Monitor carefully. (6) Bronchiectasis: Qualifiers: Bronchiectasis type: uncomplicated Qualified Code(s): J47.9 - Bronchiectasis, uncomplicated Code(s): J47.9 - Bronchiectasis, uncomplicated Status: Chronic Assessment and Plan: Sats are good on room air. Not coughing and seems to be doing well from a pulmonary standpoint. Despite chest x-ray reports and concern by hospitalist, do not feel patient has ever had pneumonia during this hospitalization. More likely atelectasis and bronchiectasis. Subjective Subjective Date/Time Seen: 08/23/25 09:42 Post Op day: 4 Patient reports: no new complaints, pain is less, bowel movement and afebrile Exam Const: General: comfortable and no acute distress Orientation/consciousness: patient oriented x3 GI: Inspection: distended, incision (Dry and healing well), no visible herniation and other (Serosanguineous MERON output) GI Palp: Yes Firmness to palpation present (GI), Yes Tenderness to palpation present (GI), No Guarding due to palpation present (GI), No Hernia present, No Palpable mass present and No Rebound tenderness present Auscultation: Hypoactive bowel sounds present Neuro: General: patient oriented x3 and no focal motor deficits Extrem: General: no calf tenderness and no edema Psych: Affect: normal affect Insight: Good insight present (Psych) Judgement: Good judgement present (Psych) Objective Data Vital Signs Vital Signs: Vital Signs - 24 hr 08/22/25 09:45 08/22/25 10:00 08/22/25 12:00 Temperature Pulse Rate 101 H 87 93 Respiratory Rate 20 Blood Pressure Pulse Oximetry Oxygen Delivery 08/22/25 12:00 08/22/25 14:00 08/22/25 16:00 Temperature 36.9 C Pulse Rate 90 91 94 Respiratory Rate 18 Blood Pressure 130/82 Pulse Oximetry 97 Oxygen Delivery 08/22/25 16:00 08/22/25 18:00 08/22/25 20:00 Temperature 36.3 C L 36.4 C L Pulse Rate 89 91 92 Respiratory Rate 18 24 H Blood Pressure 154/94 H 159/95 H Pulse Oximetry 95 93 Oxygen Delivery 08/22/25 20:00 08/22/25 20:00 08/22/25 20:52 Temperature Pulse Rate 87 88 Respiratory Rate 20 Blood Pressure Pulse Oximetry Oxygen Delivery Room Air 08/22/25 20:52 08/22/25 21:01 08/22/25 22:00 Temperature Pulse Rate 96 93 Respiratory Rate 20 Blood Pressure Pulse Oximetry 94 Oxygen Delivery Room Air 08/22/25 23:45 08/23/25 03:06 08/23/25 03:14 Temperature 36.4 C L Pulse Rate 90 82 84 Respiratory Rate 20 20 20 Blood Pressure 158/75 H Pulse Oximetry 94 Oxygen Delivery 08/23/25 05:33 08/23/25 08:00 08/23/25 08:00 Temperature 36.7 C 36.8 C Pulse Rate 86 89 Respiratory Rate 18 18 Blood Pressure 132/79 127/78 Pulse Oximetry 95 95 95 Oxygen Delivery Room Air 08/23/25 08:12 08/23/25 08:17 Temperature Pulse Rate 76 80 Respiratory Rate 20 20 Blood Pressure Pulse Oximetry Oxygen Delivery Intake/Output Intake/Output: Intake & Output 08/20/25 08/21/25 08/22/25 08/23/25 23:59 23:59 23:59 23:59 Intake Total 833 561 3850.2 1127.5 Output Total 1775 3025 2933 1710 Balance -925 -2605 -1198.8 -582.5 Meds/Results Medications: Active Medications Generic Name Dose Route Start Last Admin Trade Name Freq PRN Reason Stop Dose Admin Albuterol/Ipratropium 3 ml 08/18/25 14:00 08/23/25 07:47 Ipratropium 0.5 Mg/Albuterol Sulfate 2.5 Mg (Base) Ampul.Neb 3 Ml INHALATION 3 ml Q6HRT ANNETTE Administration Alteplase, Recombinant 2 mg 08/20/25 21:24 Alteplase 2 Mg Vial (Cathflo) IV PUSH ONCE PRN Line Occlusion Dextrose 12.5 gm 08/15/25 07:56 Dextrose 50% 25 Gm/50 Ml Syringe IV PUSH PRN PRN Hypoglycemia Protocol Enoxaparin Sodium 80 mg 08/22/25 08:15 08/23/25 08:07 Enoxaparin 80 Mg/0.8 Ml Syringe SUB-Q 80 mg Q12HR ANNETTE Administration Famotidine 20 mg 08/10/25 21:00 08/23/25 08:07 Famotidine 20 Mg/2 Ml Vial IV PUSH 20 mg Q12HR ANNETTE Administration Fentanyl Citrate 25 mcg 08/19/25 17:31 08/23/25 00:10 Fentanyl Citrate Inj (*Crx) 100 Mcg/2 Ml Vial IV PUSH 25 mcg Q2H PRN Administration Pain Rated 7-10 Glucagon 1 mg 08/15/25 07:56 Glucagon For Inj 1 Mg Vial IM PRN PRN Hypoglycemia Protocol Glucose 15 gm 08/15/25 07:56 Glucose Oral Gel 15 Gm Of Glucse In 37.5 Gm Tube PO PRN PRN Hypoglycemia Protocol Hydrochlorothiazide 12.5 mg 08/11/25 09:00 08/12/25 10:31 Hydrochlorothiazide 12.5 Mg Capsule PO 12.5 mg On Hold: 08/12/25 11:48 QAM ANNETTE Administration Ibuprofen 800 mg in 200 mls @ 400 mls/hr 08/10/25 13:04 08/23/25 03:00 Caldolor 800 Mg/200 Ml IVPB 400 mls/hr Q6H PRN Administration Breakthrough Pain Rated 1-3 or NPO Dextrose 1,000 mls @ 50 mls/hr 08/15/25 07:56 Dextrose 10% IV CONT .Q20H PRN if PN is interrupted Dextrose 1,000 mls @ 100 mls/hr 08/15/25 07:56 Dextrose 5% 1,000 Ml IVPB PRN PRN Hypoglycemia Protocol Micafungin Sodium 100 mg/ 100 mls @ 100 mls/hr 08/18/25 09:20 08/23/25 09:12 Sodium Chloride IVPB 100 mls/hr DAILY ANNETTE Administration Fat Emulsion Intravenous 250 mls @ 20.833 mls/hr 08/21/25 10:00 08/22/25 09:24 Lipids 20% IVPB 250 mls/hr Q24H ANNETTE Administration Multivitamins 1.25 ml/ 1,002.5 mls @ 40 mls/hr 08/23/25 09:35 Multivitamins 1.25 ml/ Amino IV CONT Acids/Electrolytes/Dextrose .Q24H ANNETTE Protocol Insulin Aspart 3 - 6 units 08/19/25 12:00 08/23/25 06:31 Insulin Aspart (*Bkc) 100 Units/Ml SUB-Q Not Given Q6HR ANNETTE Protocol Losartan Potassium 100 mg 08/11/25 09:00 08/12/25 10:30 Losartan Potassium 100 Mg Tablet PO 100 mg On Hold: 08/12/25 11:48 DAILY ANNETTE Administration Miscellaneous Information 1 each 08/21/25 00:01 08/22/25 17:21 Please Renew Zosyn. Per [employer] Procedure, It Will Discontinue If Not Renewed. XX 09/20/25 00:00 Not Given CLARIFY ANNETTE Naloxone HCl 0.1 mg 08/10/25 13:04 Naloxone Hcl 0.4 Mg/Ml Vial IV PUSH Q2M PRN Opiate Reversal Ondansetron HCl 4 mg 08/10/25 13:04 08/20/25 20:15 Ondansetron Inj 4 Mg/2 Ml Vial IV PUSH 4 mg Q4H PRN Administration Nausea And Vomiting Sodium Chloride 10 ml 08/15/25 14:00 08/23/25 05:20 Central Line Flush IV PUSH 10 ml Q8HR ANNETTE Administration Sodium Chloride 10 ml 08/15/25 11:41 Central Line Flush IV PUSH PRN PRN with TPN bag changes Sodium Chloride 20 ml 08/15/25 11:41 Central Line Flush IV PUSH PRN PRN after blood draws Trazodone HCl 50 mg 08/10/25 13:04 Trazodone Hcl 50 Mg Tablet PO On Hold: 08/12/25 11:49 HS PRN Insomnia Umeclidinium/Vilanterol 1 puff 08/10/25 14:00 08/23/25 07:47 Umeclidinium/Vilanterol 62.5-25 Mcg Ellipta INHALATION 1 puff DAILY ANNETTE Administration Radiology Results: ITS Impressions Chest CTA 08/13/25 16:42 IMPRESSION: 1. Negative for pulmonary embolism. Bilateral probable pneumonia. 2. Intra-abdominal free air possibly postoperative in nature relatively unchanged compared to the previous exam Abdomen/Pelvis CT 08/15/25 08:38 IMPRESSION: 1. Ileus and/or developing small bowel obstruction. 2. Free intraperitoneal air favoring recent postoperative change. 3. Peritonitis, with scattered ascites and interloop fluid. 4. Worrisome for cystitis, unless recent catheter manipulation. 5. Significant bibasilar atelectasis and/or airspace disease, with small left effusion. Catheter Placement CT 08/16/25 14:04 IMPRESSION: 1. Successful CT-guided right transgluteal abscess drainage. 2. 60 mL fluid was sent for aerobic and anaerobic cultures. 3. The catheter will be managed by Dr. Anderson. Small Bowel X-Ray 08/17/25 13:42 Impression: 1: Incomplete small bowel study with delayed passage of contrast into the distal small bowel. Study terminated due to complications with patient. Proximal small bowel dilated with multiple dilated distal loops of small bowel. Findings compatible with obstruction. Chest X-Ray 08/19/25 07:52 Impression: 1: Bibasilar airspace disease may represent pneumonia and/or atelectasis. Abdomen X-Ray 08/22/25 10:54 Impression: 1: Dilated small bowel with relative decompression of the colon. Differential diagnosis includes postoperative ileus and partial small bowel obstruction. Labs Labs: Laboratory Results - last 24 hr 08/22/25 08/22/25 08/22/25 11:06 12:18 17:13 WBC RBC Hgb Hct MCV MCH MCHC RDW Plt Count MPV Immature Gran % (Auto) Neut % (Auto) Lymph % (Auto) [place] % (Auto) Eos % (Auto) Baso % (Auto) Lymph # (Auto) [place] # (Auto) Eos # (Auto) Baso # (Auto) Abs Immat Gran (auto) Absolute Neuts (auto) Absolute Nucleated RBC Nucleated RBC % Sodium 135 L Potassium 3.2 L Chloride 102 Carbon Dioxide 30 Anion Gap 3 L BUN 12 Creatinine 0.82 Estim Creat Clear Calc 85 Estimated GFR > 60 Glucose 106 POC Capillary Glucose 170 H 114 H Calcium 8.7 C-Reactive Protein 08/22/25 08/22/25 08/23/25 22:06 23:23 05:29 WBC 11.9 H RBC 3.45 L Hgb 11.1 L Hct 34.3 L MCV 99.4 MCH 32.2 MCHC 32.4 RDW 13.8 Plt Count 643 H MPV 8.2 Immature Gran % (Auto) 2.6 H Neut % (Auto) 74.2 H Lymph % (Auto) 11.3 L [place] % (Auto) 7.1 Eos % (Auto) 4.0 Baso % (Auto) 0.8 Lymph # (Auto) 1.35 [place] # (Auto) 0.8 H Eos # (Auto) 0.5 H Baso # (Auto) 0.1 Abs Immat Gran (auto) 0.31 H Absolute Neuts (auto) 8.8 H Absolute Nucleated RBC 0.000 Nucleated RBC % 0.0 Sodium 134 L 135 L Potassium 3.5 3.4 Chloride 104 103 Carbon Dioxide 29 30 Anion Gap 1 L 2 L BUN 11 12 Creatinine 0.85 0.90 Estim Creat Clear Calc 82 78 Estimated GFR > 60 > 60 Glucose 117 H 122 H POC Capillary Glucose 110 H Calcium 8.5 8.2 L C-Reactive Protein 6.2 H
[2025-08-23] MEDS: AMINO ACIDS 5%/D15W/E-LYTES/CA 1,000 ML with MULTIVITAMINS-12 INJ VIAL 1 1.25 ML, MULTI... 40 ML IV CONT (10:51)
[2025-08-23] MEDS: FAT EMULSIONS IV 20% 250 ML IVPB (11:23)
--- NOTE | 2025-08-23 12:13 | PCNFU ---
Nutrition Follow-Up Complete: Inadequate energy intake related to NPO status and altered GI function as evidenced by current diet orders Goal:Meet estimated needs Pt progressing towards goal Pt current nutrition is TPN clinimix E 02/03 running at 40ml/hr to provide 1182kcals, 49g protein. Nutrition recommendation: Advance to 70ml/hr to better meet estimated needs Last recorded weight is 80 kg. Bowel Motility: +BM 08/23 Labs Reviewed: Hgb:11.1, HCT:34.3, Alb:2.8, NA:135, Glu:122, Phos:6.4 Meds Noted: novolog, KCL, lovenox, HCTZ Skin: WNL Additional Notes: Pt was started on tube feedings, did not tolerate, NGT remains in place. TPN restarted and running at 40ml/hr. Recommend to advance to a goal rate of 70ml/hr to provide 1693kcals, 84g protein. This will meet 87% energy needs, 100% protein needs. Monitor TPN, wt, labs. Follow up in every Friday and Friday
[2025-08-23] MEDS: PIPERACILLIN/TAZOBACTAM SOD 4.5 GM in SODIUM CHLORIDE 0.9% IV 100 ML 200 ML IVPB ×2 (14:19→21:54)
--- NOTE | 2025-08-23 15:33 | WPDIDCN ---
Assessment and Plan Assessment and plan (1) Intra-abdominal abscess: Code(s): K65.1 - Peritoneal abscess Status: Acute Assessment and Plan: ASSESSMENT: 1. S/p elective lap sigmoidectomy with anastomses on 08/10 c/b fluid collection drained on 08/16-->michael albicans on cx but pt on broad spectrum abx at that time so michael being isolated is not surprising. Pt then had drainage on 08/16 but another ex lap on 08/17 for small bowel perforation repair and 08/19 with 2nd look and washout. Everything per op note, looks like appropriate source control was achieved. 2. DVT/PE, HTN RECOMMENDATIONS: -switch micafungin to fluconazole -add back zosyn -would continue both antimicrobials only for another day or 2 as infection seems to be resolving d/w pharmacy staff Pt was seen via video telehealth consultation with the assistance of staff. Chart, data and patient info reviewed. Patient was located at [facility] while I was in my [place] office. Pt gave consent. HPI Data of Consult Date/Time: 08/23/25 15:33 Requesting Physician: José Luis Anderson MD Primary Care Provider: CHILD STUDY TEAM DIRECTOR PHYSICIAN Consult Narrative Reason for consult: michael albicans in abd cx Narrative: Casey Kearns is a 60 year old male with pmhx/o DVT/PE, HTN, diverticulitis, underwent elective lap sigmoidectomy with anastomosis on 08/10/25. This was c/b colonic tear. Pt had post-op ileus and abdominal fluid collections. Pt had a CT guided drainage of fluid collection on 08/16. This grew C. albicans. The next day pt had ex lap with small bowel repair of perforation. On 08/19 pt underwent a second look in OR and everything looked good. Pt is on micafungin. Getting ice chips. Does endorse flatus and bowel movement. He was walking earlier. [facility] Past Medical History Medical History (Updated 08/21/25 @ 16:10 by Abelino maciel Oca, MD) History of open sigmoidectomy Hand access laparoscopic sigmoidectomy with stapled 29 EEA anastomosis 08/10/2025 Dr. Anderson Bronchiectasis History of pulmonary embolism History of pulmonary embolus (PE) History of DVT (deep vein thrombosis) Hypertension Surgical History Surgical History Hx of tonsillectomy Social History Social History Smoking status: Never smoker Alcohol intake: current Drinks per week: 21 Alcohol use details: BEER Substance use: never Substance use type: does not use Lack of Transportation: No Lack of Food: Never True Current Housing: I Have Housing Concerned About Future Housing: No Difficulty Paying Gas/Electric Bills: No Difficulty Paying for Meds: No Currently Unemployed: No Education: High School Diploma/GED Difficulty w/ Childcare or Family Care: No Living arrangements: with family Additional living arrangements comments: Spiritual care concerns: No Meds Home Medications and Allergies Home Medications ?Medication ?Instructions ?Recorded ?Confirmed ?Type losartan 100 1 tablet PO DAILY 02/01/25 08/10/25 History mg-hydrochlorothiazide 12.5 mg tablet tramadol 50 mg tablet 50 mg PO BID PRN pain 02/01/25 08/01/25 History umeclidinium 62.5 mcg-vilanterol 1 inh inhalation Q24H 04/07/25 08/01/25 Rx 25 mcg/actuation powdr for bronchiectasis 3 months #180 ea inhalation (Anoro Ellipta) albuterol sulfate 90 mcg/actuation 2 inh inhalation Q6H PRN shortness 04/26/25 08/01/25 Rx aerosol inhaler (Ventolin HFA) of breath 1 month #8.5 grams ciprofloxacin HCl 500 mg tablet 500 mg PO .COMPLEX #1 tablet 08/01/25 08/10/25 Rx metronidazole 500 mg tablet 500 mg PO .COMPLEX #3 tabs 08/01/25 08/10/25 Rx rivaroxaban 20 mg tablet (Xarelto) 20 mg PO DAILY 08/01/25 08/10/25 History Allergies Allergy/AdvReac Type Severity Reaction Status Date / Time No Known Allergies Allergy Verified 08/17/25 15:50 Vital Signs Vital Signs - 24 hr 08/22/25 16:00 08/22/25 16:00 08/22/25 18:00 Temperature 97.4 F L Pulse Rate 94 89 91 Respiratory Rate 18 Blood Pressure 154/94 H Pulse Oximetry 95 Oxygen Delivery 08/22/25 20:00 08/22/25 20:00 08/22/25 20:00 Temperature 97.5 F L Pulse Rate 92 87 Respiratory Rate 24 H Blood Pressure 159/95 H Pulse Oximetry 93 Oxygen Delivery Room Air 08/22/25 20:52 08/22/25 20:52 08/22/25 21:01 Temperature Pulse Rate 88 96 Respiratory Rate 20 20 Blood Pressure Pulse Oximetry 94 Oxygen Delivery Room Air 08/22/25 22:00 08/22/25 23:45 08/23/25 03:06 Temperature 97.5 F L Pulse Rate 93 90 82 Respiratory Rate 20 20 Blood Pressure 158/75 H Pulse Oximetry 94 Oxygen Delivery 08/23/25 03:14 08/23/25 05:33 08/23/25 08:00 Temperature 98.0 F 98.3 F Pulse Rate 84 86 89 Respiratory Rate 20 18 18 Blood Pressure 132/79 127/78 Pulse Oximetry 95 95 Oxygen Delivery 08/23/25 08:00 08/23/25 08:12 08/23/25 08:17 Temperature Pulse Rate 76 80 Respiratory Rate 20 20 Blood Pressure Pulse Oximetry 95 Oxygen Delivery Room Air 08/23/25 13:50 08/23/25 14:41 08/23/25 14:47 Temperature 98.3 F Pulse Rate 84 82 81 Respiratory Rate 18 20 20 Blood Pressure 121/64 Pulse Oximetry 98 Oxygen Delivery Exam Narrative: NAD, non-toxic +NGT Abd with sharon--no drainage or erythema; MERON drain without pus Results Labs 08/23/25 05:29 08/23/25 05:29 Labs: Short CBC 08/23/25 Range/Units 05:29 WBC 11.9 H (4.5-10.0) K/mm3 Hgb 11.1 L (14.0-18.0) g/dL Hct 34.3 L (42.0-52.0) % Plt Count 643 H (150-375) k/mm3 BMP 08/22/25 08/23/25 22:06 05:29 Sodium 134 L 135 L Potassium 3.5 3.4 Chloride 104 103 Carbon Dioxide 29 30 BUN 11 12 Creatinine 0.85 0.90 Glucose 117 H 122 H Calcium 8.5 8.2 L
--- NOTE | 2025-08-23 15:41 | P.PNIM_ITS ---
Assessment and Plan Assessment and Plan (1) Obstruction of small intestine after surgical procedure: Code(s): K91.30 - Postprocedural intestinal obstruction, unspecified as to partial versus complete Status: Acute Assessment and Plan: Was found to have small-bowel obstruction after extubation and transfer from ICU as he had vomiting of tube feeds overnight. Tube feeds were held and placed on management suction, surgery is on board and managing as SBO. Patient has been NPO once more, TPN was resumed. Surgery considers this may be postoperative ileus versus SBO, they have ordered KUB to assess. -management per surgery -maintain NPO -TPN, currently through peripheral line as there was concern that TPN was causing hyperkalemia severe hyperglycemia, however this may not be the case. (2) Acute respiratory failure: Code(s): J96.00 - Acute respiratory failure, unspecified whether with hypoxia or hypercapnia Status: Resolved Assessment and Plan: Acute respiratory failure likely related to anesthesia and surgery for small bowel perforation on 08/18 -patient currently on CMV mode of ventilation, peep of 5, 50% FiO2, will wean FiO2 to maintain O2 sats > 92% -continue DuoNebs -08/19: Successfully extubated, currently on 2 L nasal cannula with adequate O2 sats Continue incentive spirometry -08/20: Continues to be stable, transferred to floor. -08/21: Resolved (3) Bowel perforation: Code(s): K63.1 - Perforation of intestine (nontraumatic) Status: Acute Assessment and Plan: 08/18: Exploratory laparotomy, small-bowel perforation, adhesiolysis, removal of pigtail catheter drain. 08/17: Patient's pigtail drain had entry contents, small-bowel follow-through with water-soluble contrast was consistent with small-bowel obstruction 08/19: Second-look laparotomy with abdominal washout -discussed with surgery, patient did have a perforation of the jejunum also had enteric contents in the peritoneal cavity -continue Zosyn (08/18) -continue micafungin(08/19) 08/20: discussed with surgery this morning, recommended starting trickle tube feeds at 10 mL/hour, hold TPN 08/21: TPN resumed as SBO has continued, and patient was not tolerating tube feeds 08/23: Surgery has requested ID consult for antifungal management of positive michael on abdominal abscess culture. (4) Intra-abdominal abscess: Code(s): K65.1 - Peritoneal abscess Status: Acute Assessment and Plan: 08/16/2025: Status post percutaneous drainage by Interventional Radiology for pelvic fluid collection status post recent sigmoidectomy (CT-guided right transgluteal abscess drainage catheter placement) (5) Protein-calorie malnutrition, severe: Code(s): E43 - Unspecified severe protein-calorie malnutrition Status: Acute Assessment and Plan: On TPN at this time as he is NPO due to SBO/ileus (6) Status post colon resection: Code(s): Z90.49 - Acquired absence of other specified parts of digestive tract Status: Acute Assessment and Plan: 08/10/2025: Sigmoidectomy for recurring diverticulitis (7) History of DVT (deep vein thrombosis): Code(s): Z86.718 - Personal history of other venous thrombosis and embolism Status: Acute Assessment and Plan: Patient has been on Xarelto as outpatient which is currently on hold -continue prophylactic Lovenox per surgery (8) Bronchiectasis: Qualifiers: Bronchiectasis type: uncomplicated Qualified Code(s): J47.9 - Bronchiectasis, uncomplicated Code(s): J47.9 - Bronchiectasis, uncomplicated Status: Chronic Assessment and Plan: In March 2025 but had an abdominal chest x-ray and bronchiectasis on the chest CT. He followed up with Dr. Disla, the certified wellness program manager, who did an extensive workup along with a 6 minute walk study which she passed. The certified wellness program manager did find past CT scan that showed bronchiectatic changes. Patient was cleared for surgery. Plan Continue conservative management for ileus/SBO. DVT prophylaxis: Lovenox SQ Stress ulcer prophylaxis: Famotidine Nutrition: TPN Medical Record Review I have reviewed the following patient records and this information was taken into consideration when formulating the assessment and plan.: previous labs and previous hospitalizations Consultations Consultations: I have discussed the care of this pt with the consulting providers. Subjective Date/time seen: 08/23/25 15:41 Interval history: Casey Kearns is a 60 year old male with a past medical history of PE, HTN, DVT, bronchiectasis, diverticulitis requiring several inpatient admissions presented to [facility] on 08/10 for an elected sigmoidectomy to avoid further episodes of diverticulitis. Patient was initially scheduled for the sigmoidectomy in March 2025 but had an abnormal chest x-ray and bronchiectasis on a chest CT. Patient followed up with certified wellness program manager Dr. Disla for further workup of his abnormal CT. Patient was able to pass a [address] Disla found past CT scans that showed the bronchi ectatic change had been there for many years. Patient also has a history of hypospadias with meatal stenosis creating difficulty passing a Anand catheter. Urology was requested to place bilateral ureteral stents for assistance in identifying the ureters and perform a urethral meatal dilatation. Patient has a history of a right leg DVT and PE. He takes Xarelto 20 mg daily for anticoagulation. 08/10/2025: Patient underwent a hand assisted laparoscopic sigmoidectomy with anastomosis and a drain placement 08/17/2025: Underwent an exploratory laparotomy, small-bowel perforation, adhesiolysis, removal of pigtail catheter drain. 08/19/2025: 2nd look laparotomy, abdominal washout 08/19/2025: Successfully extubated 08/20/2025: Patient seen and examined the ICU, remains extubated, on 2 L nasal cannula, is awake, alert, oriented, able to answer questions, overnight he had some pain but this has improved this morning. Urine output has been adequate, afebrile, hemodynamically stable. Denies any nausea, vomiting, shortness of breath or chest pain 08/21/2025: Transferred to IMU, overnight had episode of vomiting and ultimately did not tolerate tube feeds. Feeds were halted, LIS started on NG tube. Patient was seen by surgery and recommended conservative management, with continued NG decompression, and resumption of TPN as he remains NPO. 08/22: K 5.5 > 3.2 on repeat despite no potassium reducing therapy (was unable to give lokelma due to NPO status, had given insulin and duoneb). Will rely more on latter result, and replace K. Once K is stable can transfer to floor. Surgery continues to follow, SBO may be more ileus picture, they are obtaining KUB. 2: Continued to be having small BMs, and generally improving. Surgery has seen and still recommends NPO/conservative management with NG tube at this time. TPN to be continued. Anand has been discontinued per surgery. Review of Systems Review of Systems: All systems reviewed & are unremarkable except as noted in HPI and below Exam Narrative: General: Awake, alert, in no acute distress NG in place, on decompression. Getting TPN via peripheral line now. Anand has been removed. HEENT:? Pupils equal and reactive, sclera is clear, Neck:? Supple Respiratory:? Coarse breath sounds at bases bilaterally, adequate air entry, no wheezing Cardiac:? S1-S2 is normal, regular rate and rhythm Abdomen:? Soft, tender to palpation, nondistended, hypoactive bowel sounds were appreciated. Abdominal dressing in place, clean, dry and intact Extremities:? No edema, palpable pedal pulses Neuro:? Patient is awake, alert, oriented, nonfocal, answers to questions appropriately and follows simple commands Skin:? Warm and dry Psych:? Normal mentation and affect Objective Data Vital Signs Vital Signs: Vital Signs - 24 hr 08/22/25 16:00 08/22/25 16:00 08/22/25 18:00 Temperature 97.4 F L Pulse Rate 94 89 91 Respiratory Rate 18 Blood Pressure 154/94 H Pulse Oximetry 95 Oxygen Delivery 08/22/25 20:00 08/22/25 20:00 08/22/25 20:00 Temperature 97.5 F L Pulse Rate 92 87 Respiratory Rate 24 H Blood Pressure 159/95 H Pulse Oximetry 93 Oxygen Delivery Room Air 08/22/25 20:52 08/22/25 20:52 08/22/25 21:01 Temperature Pulse Rate 88 96 Respiratory Rate 20 20 Blood Pressure Pulse Oximetry 94 Oxygen Delivery Room Air 08/22/25 22:00 08/22/25 23:45 08/23/25 03:06 Temperature 97.5 F L Pulse Rate 93 90 82 Respiratory Rate 20 20 Blood Pressure 158/75 H Pulse Oximetry 94 Oxygen Delivery 08/23/25 03:14 08/23/25 05:33 08/23/25 08:00 Temperature 98.0 F 98.3 F Pulse Rate 84 86 89 Respiratory Rate 20 18 18 Blood Pressure 132/79 127/78 Pulse Oximetry 95 95 Oxygen Delivery 08/23/25 08:00 08/23/25 08:12 08/23/25 08:17 Temperature Pulse Rate 76 80 Respiratory Rate 20 20 Blood Pressure Pulse Oximetry 95 Oxygen Delivery Room Air 08/23/25 13:50 08/23/25 14:41 08/23/25 14:47 Temperature 98.3 F Pulse Rate 84 82 81 Respiratory Rate 18 20 20 Blood Pressure 121/64 Pulse Oximetry 98 Oxygen Delivery Intake/Output Intake/Output: Intake & Output 08/20/25 08/21/25 08/22/25 08/23/25 23:59 23:59 23:59 23:59 Intake Total 671 205 3432.2 1327.5 Output Total 1775 [id number] 2009 [facility] -[phone] -948.8 -682.5 Meds/Results Medications: Active Medications Generic Name Dose Route Start Last Admin Trade Name Freq PRN Reason Stop Dose Admin Albuterol/Ipratropium 3 ml 08/18/25 14:00 08/23/25 14:40 Ipratropium 0.5 Mg/Albuterol Sulfate 2.5 Mg (Base) Ampul.Neb 3 Ml INHALATION 3 ml Q6HRT ANNETTE Administration Alteplase, Recombinant 2 mg 08/20/25 21:24 Alteplase 2 Mg Vial (Cathflo) IV PUSH ONCE PRN Line Occlusion Dextrose 12.5 gm 08/15/25 07:56 Dextrose 50% 25 Gm/50 Ml Syringe IV PUSH PRN PRN Hypoglycemia Protocol Enoxaparin Sodium 80 mg 08/22/25 08:15 08/23/25 08:07 Enoxaparin 80 Mg/0.8 Ml Syringe SUB-Q 80 mg Q12HR ANNETTE Administration Famotidine 20 mg 08/10/25 21:00 08/23/25 08:07 Famotidine 20 Mg/2 Ml Vial IV PUSH 20 mg Q12HR ANNETTE Administration Fentanyl Citrate 25 mcg 08/19/25 17:31 08/23/25 00:10 Fentanyl Citrate Inj (*Crx) 100 Mcg/2 Ml Vial IV PUSH 25 mcg Q2H PRN Administration Pain Rated 7-10 Glucagon 1 mg 08/15/25 07:56 Glucagon For Inj 1 Mg Vial IM PRN PRN Hypoglycemia Protocol Glucose 15 gm 08/15/25 07:56 Glucose Oral Gel 15 Gm Of Glucse In 37.5 Gm Tube PO PRN PRN Hypoglycemia Protocol Hydrochlorothiazide 12.5 mg 08/11/25 09:00 08/12/25 10:31 Hydrochlorothiazide 12.5 Mg Capsule PO 12.5 mg On Hold: 08/12/25 11:48 QAM ANNETTE Administration Ibuprofen 800 mg in 200 mls @ 400 mls/hr 08/10/25 13:04 08/23/25 13:48 Caldolor 800 Mg/200 Ml IVPB 400 mls/hr Q6H PRN Administration Breakthrough Pain Rated 1-3 or NPO Dextrose 1,000 mls @ 50 mls/hr 08/15/25 07:56 Dextrose 10% IV CONT .Q20H PRN if PN is interrupted Dextrose 1,000 mls @ 100 mls/hr 08/15/25 07:56 Dextrose 5% 1,000 Ml IVPB PRN PRN Hypoglycemia Protocol Fat Emulsion Intravenous 250 mls @ 20.833 mls/hr 08/21/25 10:00 08/23/25 11:23 Lipids 20% IVPB 250 mls/hr Q24H ANNETTE Administration Multivitamins 1.25 ml/ 1,002.5 mls @ 40 mls/hr 08/23/25 09:35 08/23/25 10:51 Multivitamins 1.25 ml/ Amino IV CONT 40 mls/hr Acids/Electrolytes/Dextrose .Q24H ANNETTE Administration Protocol Fluconazole 400 mg in 200 mls @ 100 mls/hr 08/24/25 09:00 Diflucan 400 Mg/Nacl 200 Ml IVPB DAILY ANNETTE Piperacillin Sod/Tazobactam 100 mls @ 200 mls/hr 08/23/25 13:30 08/23/25 14:19 Sod 4.5 gm/ Sodium Chloride IVPB 200 mls/hr Q6HR ANNETTE Administration Insulin Aspart 3 - 6 units 08/19/25 12:00 08/23/25 12:09 Insulin Aspart (*Bkc) 100 Units/Ml SUB-Q Not Given Q6HR ANNETTE Protocol Losartan Potassium 100 mg 08/11/25 09:00 08/12/25 10:30 Losartan Potassium 100 Mg Tablet PO 100 mg On Hold: 08/12/25 11:48 DAILY ANNETTE Administration Naloxone HCl 0.1 mg 08/10/25 13:04 Naloxone Hcl 0.4 Mg/Ml Vial IV PUSH Q2M PRN Opiate Reversal Ondansetron HCl 4 mg 08/10/25 13:04 08/20/25 20:15 Ondansetron Inj 4 Mg/2 Ml Vial IV PUSH 4 mg Q4H PRN Administration Nausea And Vomiting Sodium Chloride 10 ml 08/15/25 14:00 08/23/25 14:20 Central Line Flush IV PUSH 10 ml Q8HR ANNETTE Administration Sodium Chloride 10 ml 08/15/25 11:41 Central Line Flush IV PUSH PRN PRN with TPN bag changes Sodium Chloride 20 ml 08/15/25 11:41 Central Line Flush IV PUSH PRN PRN after blood draws Trazodone HCl 50 mg 08/10/25 13:04 Trazodone Hcl 50 Mg Tablet PO On Hold: 08/12/25 11:49 HS PRN Insomnia Umeclidinium/Vilanterol 1 puff 08/10/25 14:00 08/23/25 07:47 Umeclidinium/Vilanterol 62.5-25 Mcg Ellipta INHALATION 1 puff DAILY ANNETTE Administration Radiology Results: ITS Impressions Chest CTA 08/13/25 16:42 IMPRESSION: 1. Negative for pulmonary embolism. Bilateral probable pneumonia. 2. Intra-abdominal free air possibly postoperative in nature relatively unchanged compared to the previous exam Abdomen/Pelvis CT 08/15/25 08:38 IMPRESSION: 1. Ileus and/or developing small bowel obstruction. 2. Free intraperitoneal air favoring recent postoperative change. 3. Peritonitis, with scattered ascites and interloop fluid. 4. Worrisome for cystitis, unless recent catheter manipulation. 5. Significant bibasilar atelectasis and/or airspace disease, with small left effusion. Catheter Placement CT 08/16/25 14:04 IMPRESSION: 1. Successful CT-guided right transgluteal abscess drainage. 2. 60 mL fluid was sent for aerobic and anaerobic cultures. 3. The catheter will be managed by Dr. Anderson. Small Bowel X-Ray 08/17/25 13:42 Impression: 1: Incomplete small bowel study with delayed passage of contrast into the distal small bowel. Study terminated due to complications with patient. Proximal small bowel dilated with multiple dilated distal loops of small bowel. Findings compatible with obstruction. Chest X-Ray 08/19/25 07:52 Impression: 1: Bibasilar airspace disease may represent pneumonia and/or atelectasis. Abdomen X-Ray 08/22/25 10:54 Impression: 1: Dilated small bowel with relative decompression of the colon. Differential diagnosis includes postoperative ileus and partial small bowel obstruction. Labs Labs: Laboratory Results - last 24 hr 08/22/25 08/22/25 08/22/25 17:13 22:06 23:23 WBC RBC Hgb Hct MCV MCH MCHC RDW Plt Count MPV Immature Gran % (Auto) Neut % (Auto) Lymph % (Auto) [place] % (Auto) Eos % (Auto) Baso % (Auto) Lymph # (Auto) [place] # (Auto) Eos # (Auto) Baso # (Auto) Abs Immat Gran (auto) Absolute Neuts (auto) Absolute Nucleated RBC Nucleated RBC % Sodium 134 L Potassium 3.5 Chloride 104 Carbon Dioxide 29 Anion Gap 1 L BUN 11 Creatinine 0.85 Estim Creat Clear Calc 82 Estimated GFR > 60 Glucose 117 H POC Capillary Glucose 114 H 110 H Calcium 8.5 C-Reactive Protein 08/23/25 08/23/25 05:29 11:51 WBC 11.9 H RBC 3.45 L Hgb 11.1 L Hct 34.3 L MCV 99.4 MCH 32.2 MCHC 32.4 RDW 13.8 Plt Count 643 H MPV 8.2 Immature Gran % (Auto) 2.6 H Neut % (Auto) 74.2 H Lymph % (Auto) 11.3 L [place] % (Auto) 7.1 Eos % (Auto) 4.0 Baso % (Auto) 0.8 Lymph # (Auto) 1.35 [place] # (Auto) 0.8 H Eos # (Auto) 0.5 H Baso # (Auto) 0.1 Abs Immat Gran (auto) 0.31 H Absolute Neuts (auto) 8.8 H Absolute Nucleated RBC 0.000 Nucleated RBC % 0.0 Sodium 135 L Potassium 3.4 Chloride 103 Carbon Dioxide 30 Anion Gap 2 L BUN 12 Creatinine 0.90 Estim Creat Clear Calc 78 Estimated GFR > 60 Glucose 122 H POC Capillary Glucose 121 H Calcium 8.2 L C-Reactive Protein 6.2 H Hospitalist MIPS Advance Care Plan I have confirmed that the patient's Advanced Care Plan is present, code status is documented, or surrogate decision maker is listed in patient medical record.: Yes Medication Reconciliation I have utilized all available resources to obtain, update and review the patients current medications (includes all prescriptions, OTC, herbals, cannabis, and nutritional supplements).: Yes
[2025-08-24] VITALS (10 sets, daily range): BP systolic 133–169; BP diastolic 66–90; PULSE 76–86; RESP 14–20; TEMP 35.9–36.8; O2SAT 95–98
[2025-08-24] MEDS: PIPERACILLIN/TAZOBACTAM SOD 4.5 GM in SODIUM CHLORIDE 0.9% IV 100 ML 200 ML IVPB ×4 (01:31→20:35)
[2025-08-24] MEDS: IPRATROPIUM 0.5 MG/ALBUTEROL SULFATE 2.5 MG (BASE) AMPUL.NEB 3 ML INHALATION ×3 (02:30→19:34)
[2025-08-24] MEDS: CENTRAL LINE FLUSH 10 ML IV PUSH ×3 (06:16→20:37)
--- NOTE | 2025-08-24 07:38 | PM.PNGS ---
Progress Note: A&P Assessment and Plan (1) Bowel perforation: Code(s): K63.1 - Perforation of intestine (nontraumatic) Status: Acute Assessment and Plan: Laparotomy and repair 08/17/2025. Second-look laparotomy with abdominal washout, 08/19/2025. Had some bowel movements yesterday. Still putting a lot out the NG tube. KUB shows NG tube in good position. Bowel dilatation is decreased and there is clearly colonic gas, especially the transverse colon. Continue NG to suction, probably DC NG and feed tomorrow. (2) Status post colon resection: Code(s): Z90.49 - Acquired absence of other specified parts of digestive tract Status: Acute Assessment and Plan: Hand access laparoscopic sigmoidectomy was the initial procedure and was performed 08/10/2025. (3) Intra-abdominal abscess: Code(s): K65.1 - Peritoneal abscess Status: Acute Assessment and Plan: Percutaneous CT-guided pelvic drain placed transgluteal 08/16/2025. Cultures grew Avani albicans. 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 Patient had history pulmonary embolism is reason for chronic anticoagulation. (5) Protein-calorie malnutrition, severe: Code(s): E43 - Unspecified severe protein-calorie malnutrition Status: Acute Assessment and Plan: Resume full TPN with lipids. Monitor carefully. (6) Bronchiectasis: Qualifiers: Bronchiectasis type: uncomplicated Qualified Code(s): J47.9 - Bronchiectasis, uncomplicated Code(s): J47.9 - Bronchiectasis, uncomplicated Status: Chronic Assessment and Plan: Sats are good on room air. Not coughing and seems to be doing well from a pulmonary standpoint. Despite chest x-ray reports and concern by hospitalist, do not feel patient has ever had pneumonia during this hospitalization. More likely atelectasis and bronchiectasis. Subjective Subjective Date/Time Seen: 08/24/25 07:38 Post Op day: 5 Patient reports: no new complaints, pain is less, flatus, bowel movement and afebrile Exam Const: General: comfortable and no acute distress Orientation/consciousness: patient oriented x3 GI: Inspection: distended and incision (Dressing changed earlier this morning, dry and intact) GI Palp: Yes Firmness to palpation present (GI), Yes Tenderness to palpation present (GI), No Guarding due to palpation present (GI) and No Hernia present Auscultation: Hypoactive bowel sounds present Neuro: General: patient oriented x3 and no focal motor deficits Extrem: General: no calf tenderness and no edema Psych: Affect: normal affect Insight: Good insight present (Psych) Judgement: Good judgement present (Psych) Objective Data Vital Signs Vital Signs: Vital Signs - 24 hr 08/23/25 08:00 08/23/25 08:00 08/23/25 08:12 Temperature 36.8 C Pulse Rate 89 76 Respiratory Rate 18 20 Blood Pressure 127/78 Pulse Oximetry 95 95 Oxygen Delivery Room Air Fraction of Inspired Oxygen 08/23/25 08:17 08/23/25 13:50 08/23/25 14:41 Temperature 36.8 C Pulse Rate 80 84 82 Respiratory Rate 20 18 20 Blood Pressure 121/64 Pulse Oximetry 98 Oxygen Delivery Fraction of Inspired Oxygen 08/23/25 14:47 08/23/25 16:00 08/23/25 20:00 Temperature 36.6 C Pulse Rate 81 90 Respiratory Rate 20 16 Blood Pressure 122/73 Pulse Oximetry 98 Oxygen Delivery Room Air Fraction of Inspired Oxygen 08/23/25 21:08 08/23/25 21:27 08/23/25 21:29 Temperature 36.7 C Pulse Rate 81 81 81 Respiratory Rate 20 20 20 Blood Pressure 142/75 H Pulse Oximetry 95 95 Oxygen Delivery Room Air Fraction of Inspired Oxygen 21 08/24/25 02:31 08/24/25 02:39 08/24/25 05:09 Temperature 36.4 C Pulse Rate 77 82 84 Respiratory Rate 16 16 16 Blood Pressure 133/66 Pulse Oximetry 98 Oxygen Delivery Fraction of Inspired Oxygen Intake/Output Intake/Output: Intake & Output 08/21/25 08/22/25 08/23/25 08/24/25 23:59 23:59 23:59 23:59 Intake Total 420 1984.2 1627.5 200 Output Total 3025 2933 2520 960 Balance -2605 -948.8 -892.5 -760 Meds/Results Medications: Active Medications Generic Name Dose Route Start Last Admin Trade Name Freq PRN Reason Stop Dose Admin Albuterol/Ipratropium 3 ml 08/18/25 14:00 08/24/25 02:30 Ipratropium 0.5 Mg/Albuterol Sulfate 2.5 Mg (Base) Ampul.Neb 3 Ml INHALATION 3 ml Q6HRT ANNETTE Administration Alteplase, Recombinant 2 mg 08/20/25 21:24 Alteplase 2 Mg Vial (Cathflo) IV PUSH ONCE PRN Line Occlusion Dextrose 12.5 gm 08/15/25 07:56 Dextrose 50% 25 Gm/50 Ml Syringe IV PUSH PRN PRN Hypoglycemia Protocol Enoxaparin Sodium 80 mg 08/22/25 08:15 08/23/25 21:54 Enoxaparin 80 Mg/0.8 Ml Syringe SUB-Q 80 mg Q12HR ANNETTE Administration Famotidine 20 mg 08/10/25 21:00 08/23/25 21:53 Famotidine 20 Mg/2 Ml Vial IV PUSH 20 mg Q12HR ANNETTE Administration Fentanyl Citrate 25 mcg 08/19/25 17:31 08/23/25 00:10 Fentanyl Citrate Inj (*Crx) 100 Mcg/2 Ml Vial IV PUSH 25 mcg Q2H PRN Administration Pain Rated 7-10 Glucagon 1 mg 08/15/25 07:56 Glucagon For Inj 1 Mg Vial IM PRN PRN Hypoglycemia Protocol Glucose 15 gm 08/15/25 07:56 Glucose Oral Gel 15 Gm Of Glucse In 37.5 Gm Tube PO PRN PRN Hypoglycemia Protocol Hydrochlorothiazide 12.5 mg 08/11/25 09:00 08/12/25 10:31 Hydrochlorothiazide 12.5 Mg Capsule PO 12.5 mg On Hold: 08/12/25 11:48 QAM ANNETTE Administration Ibuprofen 800 mg in 200 mls @ 400 mls/hr 08/10/25 13:04 08/23/25 23:40 Caldolor 800 Mg/200 Ml IVPB 400 mls/hr Q6H PRN Administration Breakthrough Pain Rated 1-3 or NPO Dextrose 1,000 mls @ 50 mls/hr 08/15/25 07:56 Dextrose 10% IV CONT .Q20H PRN if PN is interrupted Dextrose 1,000 mls @ 100 mls/hr 08/15/25 07:56 Dextrose 5% 1,000 Ml IVPB PRN PRN Hypoglycemia Protocol Fat Emulsion Intravenous 250 mls @ 20.833 mls/hr 08/21/25 10:00 08/23/25 11:23 Lipids 20% IVPB 250 mls/hr Q24H ANNETTE Administration Multivitamins 1.25 ml/ 1,002.5 mls @ 70 mls/hr 08/23/25 09:35 08/23/25 10:51 Multivitamins 1.25 ml/ Amino IV CONT 40 mls/hr Acids/Electrolytes/Dextrose .[id number] ANNETTE Administration Protocol Fluconazole 400 mg in 200 mls @ 100 mls/hr 08/24/25 09:00 Diflucan 400 Mg/Nacl 200 Ml IVPB DAILY ANNETTE Piperacillin Sod/Tazobactam 100 mls @ 200 mls/hr 08/23/25 20:00 08/24/25 01:31 Sod 4.5 gm/ Sodium Chloride IVPB 200 mls/hr Q6H ANNETTE Administration Insulin Aspart 3 - 6 units 08/19/25 12:00 08/24/25 00:50 Insulin Aspart (*Bkc) 100 Units/Ml SUB-Q Not Given Q6HR ANNETTE Protocol Losartan Potassium 100 mg 08/11/25 09:00 08/12/25 10:30 Losartan Potassium 100 Mg Tablet PO 100 mg On Hold: 08/12/25 11:48 DAILY ANNETTE Administration Naloxone HCl 0.1 mg 08/10/25 13:04 Naloxone Hcl 0.4 Mg/Ml Vial IV PUSH Q2M PRN Opiate Reversal Ondansetron HCl 4 mg 08/10/25 13:04 08/20/25 20:15 Ondansetron Inj 4 Mg/2 Ml Vial IV PUSH 4 mg Q4H PRN Administration Nausea And Vomiting Sodium Chloride 10 ml 08/15/25 14:00 08/24/25 06:16 Central Line Flush IV PUSH 10 ml Q8HR ANNETTE Administration Sodium Chloride 10 ml 08/15/25 11:41 Central Line Flush IV PUSH PRN PRN with TPN bag changes Sodium Chloride 20 ml 08/15/25 11:41 Central Line Flush IV PUSH PRN PRN after blood draws Trazodone HCl 50 mg 08/10/25 13:04 Trazodone Hcl 50 Mg Tablet PO On Hold: 08/12/25 11:49 HS PRN Insomnia Umeclidinium/Vilanterol 1 puff 08/10/25 14:00 08/23/25 07:47 Umeclidinium/Vilanterol 62.5-25 Mcg Ellipta INHALATION 1 puff DAILY ANNETTE Administration Radiology Results: ITS Impressions Chest CTA 08/13/25 16:42 IMPRESSION: 1. Negative for pulmonary embolism. Bilateral probable pneumonia. 2. Intra-abdominal free air possibly postoperative in nature relatively unchanged compared to the previous exam Abdomen/Pelvis CT 08/15/25 08:38 IMPRESSION: 1. Ileus and/or developing small bowel obstruction. 2. Free intraperitoneal air favoring recent postoperative change. 3. Peritonitis, with scattered ascites and interloop fluid. 4. Worrisome for cystitis, unless recent catheter manipulation. 5. Significant bibasilar atelectasis and/or airspace disease, with small left effusion. Catheter Placement CT 08/16/25 14:04 IMPRESSION: 1. Successful CT-guided right transgluteal abscess drainage. 2. 60 mL fluid was sent for aerobic and anaerobic cultures. 3. The catheter will be managed by Dr. Anderson. Small Bowel X-Ray 08/17/25 13:42 Impression: 1: Incomplete small bowel study with delayed passage of contrast into the distal small bowel. Study terminated due to complications with patient. Proximal small bowel dilated with multiple dilated distal loops of small bowel. Findings compatible with obstruction. Chest X-Ray 08/19/25 07:52 Impression: 1: Bibasilar airspace disease may represent pneumonia and/or atelectasis. Labs Labs: Laboratory Results - last 24 hr 08/23/25 08/23/25 08/23/25 11:51 18:47 23:38 POC Capillary Glucose 121 H 122 H 133 H
[2025-08-24] MEDS: ENOXAPARIN 80 MG/0.8 ML SYRINGE SUB-Q ×2 (09:09→20:36)
[2025-08-24] MEDS: FAMOTIDINE 20 MG/2 ML VIAL IV PUSH ×2 (09:09→20:36)
[2025-08-24] MEDS: fentaNYL CITRATE INJ (*CRX) 100 MCG/2 ML VIAL 25 MCG IV PUSH (09:10)
[2025-08-24] MEDS: FLUCONAZOLE 400 MG/NACL 200 ML 400 MG/200 ML BAG 100 MG IVPB (09:10)
[2025-08-24 10:09] LABS: Hematocrit 36.0 % (42.0-52.0); Hemoglobin 11.9 g/dL (14.0-18.0); Immature Granulocyte Percent A 2.0 % (0-0.5); Lymphocytes Absolute Auto 1.46 K/mm3 (0.9-3.2); Mean Corpuscular HGB Conc 33.1 g/dl (32-36); Mean Corpuscular Hemoglobin 32.5 pg (26-34); Mean Corpuscular Volume 98.4 fl (80-100); Nucleated Red Blood Cells Absolute Auto 0.000 K/mm3 (0.0-0.012); Nucleated Red Blood Cells Perc 0.0 % (0.0-0.2); Platelet Count Result 684 k/mm3 (150-375); Red Blood Count 3.66 M/mm3 (4.6-6.20); White Blood Count 11.4 K/mm3 (4.5-10.0)
[2025-08-24 10:19] LABS: Anion Gap 5 mmol/L (4-12); Blood Urea Nitrogen 13 mg/dL (9-20); CRP 6.9 mg/dL (<1.0); Calcium 8.5 mg/dL (8.4-10.2); Carbon Dioxide 25 mmol/L (22-30); Chloride 105 mmol/L (98-107); Estimated CRCL calculation 71 ml/min; Estimated Glomerular Filt Rate > 60; Glucose 113 mg/dL (65-110); Potassium 3.9 mmol/L (3.4-5.0); Sodium 135 mmol/L (137-145); Triglycerides 282 mg/dL (<150)
[2025-08-24] MEDS: AMINO ACIDS 5%/D15W/E-LYTES/CA 1,000 ML with MULTIVITAMINS-12 INJ VIAL 1 1.25 ML, MULTI... 40 ML IV CONT (10:36)
[2025-08-24] MEDS: FAT EMULSIONS IV 20% 250 ML IVPB (10:37)
[2025-08-24] MEDS: IBUPROFEN IV 800 MG/200 ML 800 MG/200 ML BAG 400 MG IVPB (14:14)
--- NOTE | 2025-08-24 14:25 | PM.IMPN2 ---
Assessment and Plan Assessment and Plan (1) Obstruction of small intestine after surgical procedure: Code(s): K91.30 - Postprocedural intestinal obstruction, unspecified as to partial versus complete Status: Acute Assessment and Plan: Was found to have small-bowel obstruction after extubation and transfer from ICU as he had vomiting of tube feeds overnight. Tube feeds were held and placed on management suction, surgery is on board and managing as SBO. Patient has been NPO once more, TPN was resumed. Surgery considers this may be postoperative ileus versus SBO, they have ordered KUB to assess. -management per surgery -maintain NPO -TPN, currently through peripheral line (2) Acute respiratory failure: Code(s): J96.00 - Acute respiratory failure, unspecified whether with hypoxia or hypercapnia Status: Resolved Assessment and Plan: Acute respiratory failure likely related to anesthesia and surgery for small bowel perforation on 08/18 -patient currently on CMV mode of ventilation, peep of 5, 50% FiO2, will wean FiO2 to maintain O2 sats > 92% -continue DuoNebs -08/19: Successfully extubated, currently on 2 L nasal cannula with adequate O2 sats Continue incentive spirometry -08/20: Continues to be stable, transferred to floor. -08/21: Resolved (3) Bowel perforation: Code(s): K63.1 - Perforation of intestine (nontraumatic) Status: Acute Assessment and Plan: 08/18: Exploratory laparotomy, small-bowel perforation, adhesiolysis, removal of pigtail catheter drain. 08/17: Patient's pigtail drain had entry contents, small-bowel follow-through with water-soluble contrast was consistent with small-bowel obstruction 08/19: Second-look laparotomy with abdominal washout -discussed with surgery, patient did have a perforation of the jejunum also had enteric contents in the peritoneal cavity -continue Zosyn (08/18) -continue micafungin(08/19) 08/20: discussed with surgery this morning, recommended starting trickle tube feeds at 10 mL/hour, hold TPN 08/21: TPN resumed as SBO has continued, and patient was not tolerating tube feeds 08/23: Surgery has requested ID consult for antifungal management of positive michael on abdominal abscess culture. 08/24: ID recommended complete antifungal and antibiotics 08/25. (4) Intra-abdominal abscess: Code(s): K65.1 - Peritoneal abscess Status: Acute Assessment and Plan: 08/16/2025: Status post percutaneous drainage by Interventional Radiology for pelvic fluid collection status post recent sigmoidectomy (CT-guided right transgluteal abscess drainage catheter placement) (5) Protein-calorie malnutrition, severe: Code(s): E43 - Unspecified severe protein-calorie malnutrition Status: Acute Assessment and Plan: On TPN at this time as he is NPO due to SBO/ileus (6) Status post colon resection: Code(s): Z90.49 - Acquired absence of other specified parts of digestive tract Status: Acute Assessment and Plan: 08/10/2025: Sigmoidectomy for recurring diverticulitis (7) History of DVT (deep vein thrombosis): Code(s): Z86.718 - Personal history of other venous thrombosis and embolism Status: Acute Assessment and Plan: Patient has been on Xarelto as outpatient which is currently on hold -continue prophylactic Lovenox per surgery (8) Bronchiectasis: Qualifiers: Bronchiectasis type: uncomplicated Qualified Code(s): J47.9 - Bronchiectasis, uncomplicated Code(s): J47.9 - Bronchiectasis, uncomplicated Status: Chronic Assessment and Plan: In March 2025 but had an abdominal chest x-ray and bronchiectasis on the chest CT. He followed up with Dr. Disla, the clinical education academic coordinator, who did an extensive workup along with a 6 minute walk study which she passed. The clinical education academic coordinator did find past CT scan that showed bronchiectatic changes. Patient was cleared for surgery. Plan Continue conservative management for ileus/SBO. DVT prophylaxis: Lovenox SQ Stress ulcer prophylaxis: Famotidine Nutrition: TPN Medical Record Review I have reviewed the following patient records and this information was taken into consideration when formulating the assessment and plan.: previous labs and previous hospitalizations Consultations Consultations: I have discussed the care of this pt with the consulting providers. Subjective Date/time seen: 08/24/25 14:25 Interval history: Casey Kearns is a 60 year old male with a past medical history of PE, HTN, DVT, bronchiectasis, diverticulitis requiring several inpatient admissions presented to [facility] on 08/10 for an elected sigmoidectomy to avoid further episodes of diverticulitis. Patient was initially scheduled for the sigmoidectomy in March 2025 but had an abnormal chest x-ray and bronchiectasis on a chest CT. Patient followed up with clinical education academic coordinator Dr. Disla for further workup of his abnormal CT. Patient was able to pass a [address] Disla found past CT scans that showed the bronchi ectatic change had been there for many years. Patient also has a history of hypospadias with meatal stenosis creating difficulty passing a Anand catheter. Urology was requested to place bilateral ureteral stents for assistance in identifying the ureters and perform a urethral meatal dilatation. Patient has a history of a right leg DVT and PE. He takes Xarelto 20 mg daily for anticoagulation. 08/10/2025: Patient underwent a hand assisted laparoscopic sigmoidectomy with anastomosis and a drain placement 08/17/2025: Underwent an exploratory laparotomy, small-bowel perforation, adhesiolysis, removal of pigtail catheter drain. 08/19/2025: 2nd look laparotomy, abdominal washout 08/19/2025: Successfully extubated 08/20/2025: Patient seen and examined the ICU, remains extubated, on 2 L nasal cannula, is awake, alert, oriented, able to answer questions, overnight he had some pain but this has improved this morning. Urine output has been adequate, afebrile, hemodynamically stable. Denies any nausea, vomiting, shortness of breath or chest pain 08/21/2025: Transferred to IMU, overnight had episode of vomiting and ultimately did not tolerate tube feeds. Feeds were halted, LIS started on NG tube. Patient was seen by surgery and recommended conservative management, with continued NG decompression, and resumption of TPN as he remains NPO. 08/22: K 5.5 > 3.2 on repeat despite no potassium reducing therapy (was unable to give lokelma due to NPO status, had given insulin and duoneb). Will rely more on latter result, and replace K. Once K is stable can transfer to floor. Surgery continues to follow, SBO may be more ileus picture, they are obtaining KUB. 08/23: Continued to be having small BMs, and generally improving. Surgery has seen and still recommends NPO/conservative management with NG tube at this time. TPN to be continued. Anand has been discontinued per surgery. 08/24: Improving, still producing BM. Surgery on board, still recommending NPO/TPN while SBO continues to improve. Per ID, last day of ABX for positive michael can be 08/25. Review of Systems Review of Systems: All systems reviewed & are unremarkable except as noted in HPI and below Exam Narrative: General: Awake, alert, in no acute distress NG in place, on decompression. Getting TPN via peripheral line. Anand has been removed. HEENT:? Pupils equal and reactive, sclera is clear, Neck:? Supple Respiratory:? Coarse breath sounds at bases bilaterally, adequate air entry, no wheezing Cardiac:? S1-S2 is normal, regular rate and rhythm Abdomen:? Soft, tender to palpation, nondistended, hypoactive bowel sounds were appreciated. Abdominal dressing in place, clean, dry and intact Extremities:? No edema, palpable pedal pulses Neuro:? Patient is awake, alert, oriented, nonfocal, answers to questions appropriately and follows simple commands Skin:? Warm and dry Psych:? Normal mentation and affect Objective Data Vital Signs Vital Signs: Vital Signs - 24 hr 08/23/25 14:41 08/23/25 14:47 08/23/25 16:00 Temperature 97.9 F Pulse Rate 82 81 90 Respiratory Rate 20 20 16 Blood Pressure 122/73 Pulse Oximetry 98 Oxygen Delivery Fraction of Inspired Oxygen 08/23/25 20:00 08/23/25 21:08 08/23/25 21:27 Temperature 98.0 F Pulse Rate 81 81 Respiratory Rate 20 20 Blood Pressure 142/75 H Pulse Oximetry 95 Oxygen Delivery Room Air Fraction of Inspired Oxygen 08/23/25 21:29 08/24/25 02:31 08/24/25 02:39 Temperature Pulse Rate 81 77 82 Respiratory Rate 20 16 16 Blood Pressure Pulse Oximetry 95 Oxygen Delivery Room Air Fraction of Inspired Oxygen 21 08/24/25 05:09 08/24/25 09:18 08/24/25 09:18 Temperature 97.6 F Pulse Rate 84 83 83 Respiratory Rate 16 16 16 Blood Pressure 133/66 Pulse Oximetry 98 95 Oxygen Delivery Room Air Fraction of Inspired Oxygen 08/24/25 09:23 08/24/25 14:00 Temperature 96.7 F L Pulse Rate 82 81 Respiratory Rate 16 20 Blood Pressure 169/90 H Pulse Oximetry 97 Oxygen Delivery Fraction of Inspired Oxygen Intake/Output Intake/Output: Intake & Output 08/21/25 08/22/25 08/23/25 08/24/25 23:59 23:59 23:59 23:59 Intake Total 420 1984.2 1877.5 1550 Output Total 3025 2933 2520 960 [facility]2605 -948.8 -642.5 590 Meds/Results Medications: Active Medications Generic Name Dose Route Start Last Admin Trade Name Freq PRN Reason Stop Dose Admin Albuterol/Ipratropium 3 ml 08/18/25 14:00 08/24/25 09:15 Ipratropium 0.5 Mg/Albuterol Sulfate 2.5 Mg (Base) Ampul.Neb 3 Ml INHALATION 3 ml Q6HRT ANNETTE Administration Alteplase, Recombinant 2 mg 08/20/25 21:24 Alteplase 2 Mg Vial (Cathflo) IV PUSH ONCE PRN Line Occlusion Dextrose 12.5 gm 08/15/25 07:56 Dextrose 50% 25 Gm/50 Ml Syringe IV PUSH PRN PRN Hypoglycemia Protocol Enoxaparin Sodium 80 mg 08/22/25 08:15 08/24/25 09:09 Enoxaparin 80 Mg/0.8 Ml Syringe SUB-Q 80 mg Q12HR ANNETTE Administration Famotidine 20 mg 08/10/25 21:00 08/24/25 09:09 Famotidine 20 Mg/2 Ml Vial IV PUSH 20 mg Q12HR ANNETTE Administration Fentanyl Citrate 25 mcg 08/19/25 17:31 08/24/25 09:10 Fentanyl Citrate Inj (*Crx) 100 Mcg/2 Ml Vial IV PUSH 25 mcg Q2H PRN Administration Pain Rated 7-10 Glucagon 1 mg 08/15/25 07:56 Glucagon For Inj 1 Mg Vial IM PRN PRN Hypoglycemia Protocol Glucose 15 gm 08/15/25 07:56 Glucose Oral Gel 15 Gm Of Glucse In 37.5 Gm Tube PO PRN PRN Hypoglycemia Protocol Hydrochlorothiazide 12.5 mg 08/11/25 09:00 08/12/25 10:31 Hydrochlorothiazide 12.5 Mg Capsule PO 12.5 mg On Hold: 08/12/25 11:48 QAM ANNETTE Administration Ibuprofen 800 mg in 200 mls @ 400 mls/hr 08/10/25 13:04 08/24/25 14:14 Caldolor 800 Mg/200 Ml IVPB 400 mls/hr Q6H PRN Administration Breakthrough Pain Rated 1-3 or NPO Dextrose 1,000 mls @ 50 mls/hr 08/15/25 07:56 Dextrose 10% IV CONT .Q20H PRN if PN is interrupted Dextrose 1,000 mls @ 100 mls/hr 08/15/25 07:56 Dextrose 5% 1,000 Ml IVPB PRN PRN Hypoglycemia Protocol Fat Emulsion Intravenous 250 mls @ 20.833 mls/hr 08/21/25 10:00 08/24/25 10:37 Lipids 20% IVPB 250 mls/hr Q24H ANNETTE Administration Multivitamins 1.25 ml/ 1,002.5 mls @ 70 mls/hr 08/23/25 09:35 08/24/25 10:36 Multivitamins 1.25 ml/ Amino IV CONT 40 mls/hr Acids/Electrolytes/Dextrose .[id number] ANNETTE Administration Protocol Fluconazole 400 mg in 200 mls @ 100 mls/hr 08/24/25 09:00 08/24/25 09:10 Diflucan 400 Mg/Nacl 200 Ml IVPB 100 mls/hr DAILY ANNETTE Administration Piperacillin Sod/Tazobactam 100 mls @ 200 mls/hr 08/23/25 20:00 08/24/25 14:15 Sod 4.5 gm/ Sodium Chloride IVPB 200 mls/hr Q6H ANNETTE Administration Insulin Aspart 3 - 6 units 08/19/25 12:00 08/24/25 11:29 Insulin Aspart (*Bkc) 100 Units/Ml SUB-Q Not Given Q6HR ANNETTE Protocol Losartan Potassium 100 mg 08/11/25 09:00 08/12/25 10:30 Losartan Potassium 100 Mg Tablet PO 100 mg On Hold: 08/12/25 11:48 DAILY ANNETTE Administration Naloxone HCl 0.1 mg 08/10/25 13:04 Naloxone Hcl 0.4 Mg/Ml Vial IV PUSH Q2M PRN Opiate Reversal Ondansetron HCl 4 mg 08/10/25 13:04 08/20/25 20:15 Ondansetron Inj 4 Mg/2 Ml Vial IV PUSH 4 mg Q4H PRN Administration Nausea And Vomiting Sodium Chloride 10 ml 08/15/25 14:00 08/24/25 06:16 Central Line Flush IV PUSH 10 ml Q8HR ANNETTE Administration Sodium Chloride 10 ml 08/15/25 11:41 Central Line Flush IV PUSH PRN PRN with TPN bag changes Sodium Chloride 20 ml 08/15/25 11:41 Central Line Flush IV PUSH PRN PRN after blood draws Trazodone HCl 50 mg 08/10/25 13:04 Trazodone Hcl 50 Mg Tablet PO On Hold: 08/12/25 11:49 HS PRN Insomnia Umeclidinium/Vilanterol 1 puff 08/10/25 14:00 08/24/25 09:22 Umeclidinium/Vilanterol 62.5-25 Mcg Ellipta INHALATION Not Given DAILY ANNETTE Radiology Results: ITS Impressions Chest CTA 08/13/25 16:42 IMPRESSION: 1. Negative for pulmonary embolism. Bilateral probable pneumonia. 2. Intra-abdominal free air possibly postoperative in nature relatively unchanged compared to the previous exam Abdomen/Pelvis CT 08/15/25 08:38 IMPRESSION: 1. Ileus and/or developing small bowel obstruction. 2. Free intraperitoneal air favoring recent postoperative change. 3. Peritonitis, with scattered ascites and interloop fluid. 4. Worrisome for cystitis, unless recent catheter manipulation. 5. Significant bibasilar atelectasis and/or airspace disease, with small left effusion. Catheter Placement CT 08/16/25 14:04 IMPRESSION: 1. Successful CT-guided right transgluteal abscess drainage. 2. 60 mL fluid was sent for aerobic and anaerobic cultures. 3. The catheter will be managed by Dr. Anderson. Small Bowel X-Ray 08/17/25 13:42 Impression: 1: Incomplete small bowel study with delayed passage of contrast into the distal small bowel. Study terminated due to complications with patient. Proximal small bowel dilated with multiple dilated distal loops of small bowel. Findings compatible with obstruction. Chest X-Ray 08/19/25 07:52 Impression: 1: Bibasilar airspace disease may represent pneumonia and/or atelectasis. Abdomen X-Ray 08/24/25 08:27 IMPRESSION: 1. Slight improvement in either a postoperative ileus or less likely partial small bowel obstruction. Labs Labs: Laboratory Results - last 24 hr 08/23/25 08/23/25 08/24/25 18:47 23:38 09:31 WBC 11.4 H RBC 3.66 L Hgb 11.9 L Hct 36.0 L MCV 98.4 MCH 32.5 MCHC 33.1 RDW 13.9 Plt Count 684 H MPV 8.4 Immature Gran % (Auto) 2.0 H Neut % (Auto) 73.6 H Lymph % (Auto) 12.8 L [place] % (Auto) 5.5 Eos % (Auto) 5.3 H Baso % (Auto) 0.8 Lymph # (Auto) 1.46 [place] # (Auto) 0.6 Eos # (Auto) 0.6 H Baso # (Auto) 0.1 Abs Immat Gran (auto) 0.23 H Absolute Neuts (auto) 8.4 H Absolute Nucleated RBC 0.000 Nucleated RBC % 0.0 Sodium 135 L Potassium 3.9 Chloride 105 Carbon Dioxide 25 Anion Gap 5 BUN 13 Creatinine 1.00 Estim Creat Clear Calc 71 Estimated GFR > 60 Glucose 113 H POC Capillary Glucose 122 H 133 H Calcium 8.5 C-Reactive Protein 6.9 H Triglycerides 282 H 08/24/25 11:18 WBC RBC Hgb Hct MCV MCH MCHC RDW Plt Count MPV Immature Gran % (Auto) Neut % (Auto) Lymph % (Auto) [place] % (Auto) Eos % (Auto) Baso % (Auto) Lymph # (Auto) [place] # (Auto) Eos # (Auto) Baso # (Auto) Abs Immat Gran (auto) Absolute Neuts (auto) Absolute Nucleated RBC Nucleated RBC % Sodium Potassium Chloride Carbon Dioxide Anion Gap BUN Creatinine Estim Creat Clear Calc Estimated GFR Glucose POC Capillary Glucose 118 H Calcium C-Reactive Protein Triglycerides Hospitalist MIPS Advance Care Plan I have confirmed that the patient's Advanced Care Plan is present, code status is documented, or surrogate decision maker is listed in patient medical record.: Yes Medication Reconciliation I have utilized all available resources to obtain, update and review the patients current medications (includes all prescriptions, OTC, herbals, cannabis, and nutritional supplements).: Yes
--- NOTE | 2025-08-24 15:33 | PCRCNOTE ---
past schedule time for ranjan.
--- NOTE | 2025-08-24 18:36 | P.PNINF_ITS ---
Progress Note: A&P Assessment and Plan (1) Intra-abdominal abscess: Code(s): K65.1 - Peritoneal abscess Status: Acute Assessment and Plan: ASSESSMENT: 1. S/p elective lap sigmoidectomy with anastomosis on 08/10 c/b fluid collection drained on 08/16-->michael albicans on cx but pt on broad spectrum abx at that time so michael being isolated is not surprising. Pt then had drainage on 08/16 but another ex lap on 08/17 for small bowel perforation repair and 08/19 with 2nd look and washout. Everything per op note, looks like appropriate source control was achieved. 2. DVT/PE, HTN RECOMMENDATIONS: -fluconazole and zosyn for another day or 2 as infection seems to be resolving d/w pharmacy staff Pt was seen via video telehealth consultation with the assistance of staff. Chart, data and patient info reviewed. Patient was located at [facility] while I was in my [place] office. Pt gave consent. Subjective Date/time seen: 08/24/25 18:36 Interval history: no fevers mild leukocytosis hungry diet is only ice chips at this point Exam Narrative: NAD, non-toxic on room air +NGT pale abd tender LLQ; MERON drain without pus; incision without erythema or drainage Objective Data Vital Signs Vital Signs: Vital Signs - 24 hr 08/23/25 20:00 08/23/25 21:08 08/23/25 21:27 Temperature 98.0 F Pulse Rate 81 81 Respiratory Rate 20 20 Blood Pressure 142/75 H Pulse Oximetry 95 Oxygen Delivery Room Air Fraction of Inspired Oxygen 08/23/25 21:29 08/24/25 02:31 08/24/25 02:39 Temperature Pulse Rate 81 77 82 Respiratory Rate 20 16 16 Blood Pressure Pulse Oximetry 95 Oxygen Delivery Room Air Fraction of Inspired Oxygen 21 08/24/25 05:09 08/24/25 09:18 08/24/25 09:18 Temperature 97.6 F Pulse Rate 84 83 83 Respiratory Rate 16 16 16 Blood Pressure 133/66 Pulse Oximetry 98 95 Oxygen Delivery Room Air Fraction of Inspired Oxygen 08/24/25 09:23 08/24/25 14:00 08/24/25 15:57 Temperature 96.7 F L Pulse Rate 82 81 Respiratory Rate 16 20 Blood Pressure 169/90 H 153/80 H Pulse Oximetry 97 Oxygen Delivery Fraction of Inspired Oxygen Intake/Output Intake/Output: Intake & Output 11/30/25 12/01/25 12/02/25 12/03/25 23:59 23:59 23:59 23:59 Intake Total 420 1984.2 1877.5 1850 Output Total 3025 2933 2520 1810 Balance -2605 -948.8 -642.5 40 Meds/Results Medications: Active Medications Generic Name Dose Route Start Last Admin Trade Name Freq PRN Reason Stop Dose Admin Albuterol/Ipratropium 3 ml 08/18/25 14:00 08/24/25 15:33 Ipratropium 0.5 Mg/Albuterol Sulfate 2.5 Mg (Base) Ampul.Neb 3 Ml INHALATION Not Given Q6HRT ANNETTE Alteplase, Recombinant 2 mg 08/20/25 21:24 Alteplase 2 Mg Vial (Cathflo) IV PUSH ONCE PRN Line Occlusion Dextrose 12.5 gm 08/15/25 07:56 Dextrose 50% 25 Gm/50 Ml Syringe IV PUSH PRN PRN Hypoglycemia Protocol Enoxaparin Sodium 80 mg 08/22/25 08:15 08/24/25 09:09 Enoxaparin 80 Mg/0.8 Ml Syringe SUB-Q 80 mg Q12HR ANNETTE Administration Famotidine 20 mg 08/10/25 21:00 08/24/25 09:09 Famotidine 20 Mg/2 Ml Vial IV PUSH 20 mg Q12HR ANNETTE Administration Fentanyl Citrate 25 mcg 08/19/25 17:31 08/24/25 09:10 Fentanyl Citrate Inj (*Crx) 100 Mcg/2 Ml Vial IV PUSH 25 mcg Q2H PRN Administration Pain Rated 7-10 Glucagon 1 mg 08/15/25 07:56 Glucagon For Inj 1 Mg Vial IM PRN PRN Hypoglycemia Protocol Glucose 15 gm 08/15/25 07:56 Glucose Oral Gel 15 Gm Of Glucse In 37.5 Gm Tube PO PRN PRN Hypoglycemia Protocol Hydrochlorothiazide 12.5 mg 08/11/25 09:00 08/12/25 10:31 Hydrochlorothiazide 12.5 Mg Capsule PO 12.5 mg On Hold: 08/12/25 11:48 QAM ANNETTE Administration Ibuprofen 800 mg in 200 mls @ 400 mls/hr 08/10/25 13:04 08/24/25 14:14 Caldolor 800 Mg/200 Ml IVPB 400 mls/hr Q6H PRN Administration Breakthrough Pain Rated 1-3 or NPO Dextrose 1,000 mls @ 50 mls/hr 08/15/25 07:56 Dextrose 10% IV CONT .Q20H PRN if PN is interrupted Dextrose 1,000 mls @ 100 mls/hr 08/15/25 07:56 Dextrose 5% 1,000 Ml IVPB PRN PRN Hypoglycemia Protocol Fat Emulsion Intravenous 250 mls @ 20.833 mls/hr 08/21/25 10:00 08/24/25 10:37 Lipids 20% IVPB 250 mls/hr Q24H ANNETTE Administration Multivitamins 1.25 ml/ 1,002.5 mls @ 70 mls/hr 08/23/25 09:35 08/24/25 10:36 Multivitamins 1.25 ml/ Amino IV CONT 40 mls/hr Acids/Electrolytes/Dextrose .[id number] ANNETTE Administration Protocol Fluconazole 400 mg in 200 mls @ 100 mls/hr 08/24/25 09:00 08/24/25 11:10 Diflucan 400 Mg/Nacl 200 Ml IVPB Infused DAILY ANNETTE Infusion Piperacillin Sod/Tazobactam 100 mls @ 200 mls/hr 08/23/25 20:00 08/24/25 14:45 Sod 4.5 gm/ Sodium Chloride IVPB Infused Q6H ANNETTE Infusion Insulin Aspart 3 - 6 units 08/19/25 12:00 08/24/25 11:29 Insulin Aspart (*Bkc) 100 Units/Ml SUB-Q Not Given Q6HR ANNETTE Protocol Losartan Potassium 100 mg 08/11/25 09:00 08/12/25 10:30 Losartan Potassium 100 Mg Tablet PO 100 mg On Hold: 08/12/25 11:48 DAILY ANNETTE Administration Naloxone HCl 0.1 mg 08/10/25 13:04 Naloxone Hcl 0.4 Mg/Ml Vial IV PUSH Q2M PRN Opiate Reversal Ondansetron HCl 4 mg 08/10/25 13:04 08/20/25 20:15 Ondansetron Inj 4 Mg/2 Ml Vial IV PUSH 4 mg Q4H PRN Administration Nausea And Vomiting Sodium Chloride 10 ml 08/15/25 14:00 08/24/25 14:41 Central Line Flush IV PUSH 10 ml Q8HR ANNETTE Administration Sodium Chloride 10 ml 08/15/25 11:41 Central Line Flush IV PUSH PRN PRN with TPN bag changes Sodium Chloride 20 ml 08/15/25 11:41 Central Line Flush IV PUSH PRN PRN after blood draws Trazodone HCl 50 mg 08/10/25 13:04 Trazodone Hcl 50 Mg Tablet PO On Hold: 08/12/25 11:49 HS PRN Insomnia Umeclidinium/Vilanterol 1 puff 08/10/25 14:00 08/24/25 09:22 Umeclidinium/Vilanterol 62.5-25 Mcg Ellipta INHALATION Not Given DAILY ANNETTE Radiology Results: ITS Impressions Chest CTA 08/13/25 16:42 IMPRESSION: 1. Negative for pulmonary embolism. Bilateral probable pneumonia. 2. Intra-abdominal free air possibly postoperative in nature relatively unchanged compared to the previous exam Abdomen/Pelvis CT 08/15/25 08:38 IMPRESSION: 1. Ileus and/or developing small bowel obstruction. 2. Free intraperitoneal air favoring recent postoperative change. 3. Peritonitis, with scattered ascites and interloop fluid. 4. Worrisome for cystitis, unless recent catheter manipulation. 5. Significant bibasilar atelectasis and/or airspace disease, with small left effusion. Catheter Placement CT 08/16/25 14:04 IMPRESSION: 1. Successful CT-guided right transgluteal abscess drainage. 2. 60 mL fluid was sent for aerobic and anaerobic cultures. 3. The catheter will be managed by Dr. Anderson. Small Bowel X-Ray 08/17/25 13:42 Impression: 1: Incomplete small bowel study with delayed passage of contrast into the distal small bowel. Study terminated due to complications with patient. Proximal small bowel dilated with multiple dilated distal loops of small bowel. Findings compatible with obstruction. Chest X-Ray 08/19/25 07:52 Impression: 1: Bibasilar airspace disease may represent pneumonia and/or atelectasis. Abdomen X-Ray 08/24/25 08:27 IMPRESSION: 1. Slight improvement in either a postoperative ileus or less likely partial small bowel obstruction. Labs Labs: Laboratory Results - last 24 hr 08/23/25 08/23/25 08/24/25 18:47 23:38 09:31 WBC 11.4 H RBC 3.66 L Hgb 11.9 L Hct 36.0 L MCV 98.4 MCH 32.5 MCHC 33.1 RDW 13.9 Plt Count 684 H MPV 8.4 Immature Gran % (Auto) 2.0 H Neut % (Auto) 73.6 H Lymph % (Auto) 12.8 L [place] % (Auto) 5.5 Eos % (Auto) 5.3 H Baso % (Auto) 0.8 Lymph # (Auto) 1.46 [place] # (Auto) 0.6 Eos # (Auto) 0.6 H Baso # (Auto) 0.1 Abs Immat Gran (auto) 0.23 H Absolute Neuts (auto) 8.4 H Absolute Nucleated RBC 0.000 Nucleated RBC % 0.0 Sodium 135 L Potassium 3.9 Chloride 105 Carbon Dioxide 25 Anion Gap 5 BUN 13 Creatinine 1.00 Estim Creat Clear Calc 71 Estimated GFR > 60 Glucose 113 H POC Capillary Glucose 122 H 133 H Calcium 8.5 C-Reactive Protein 6.9 H Triglycerides 282 H 08/24/25 08/24/25 11:18 18:00 WBC RBC Hgb Hct MCV MCH MCHC RDW Plt Count MPV Immature Gran % (Auto) Neut % (Auto) Lymph % (Auto) [place] % (Auto) Eos % (Auto) Baso % (Auto) Lymph # (Auto) [place] # (Auto) Eos # (Auto) Baso # (Auto) Abs Immat Gran (auto) Absolute Neuts (auto) Absolute Nucleated RBC Nucleated RBC % Sodium Potassium Chloride Carbon Dioxide Anion Gap BUN Creatinine Estim Creat Clear Calc Estimated GFR Glucose POC Capillary Glucose 118 H 125 H Calcium C-Reactive Protein Triglycerides
[2025-08-24] MEDS: MORPHINE SULFATE (*CRX) 4 MG/ML INJ 2 MG IV PUSH (23:30)
[2025-08-25] MEDS: AMINO ACIDS 5%/D15W/E-LYTES/CA 1,000 ML with MULTIVITAMINS-12 INJ VIAL 1 1.25 ML, MULTI... 40 ML IV CONT (00:58)
[2025-08-25] MEDS: PIPERACILLIN/TAZOBACTAM SOD 4.5 GM in SODIUM CHLORIDE 0.9% IV 100 ML 200 ML IVPB ×4 (02:00→20:26)
[2025-08-25 05:48] VITALS: BP 147/80; PULSE 80; RESP 16; TEMP 36.2; O2SAT 96
[2025-08-25] MEDS: IBUPROFEN IV 800 MG/200 ML 800 MG/200 ML BAG 400 MG IVPB (06:06)
[2025-08-25] MEDS: CENTRAL LINE FLUSH 10 ML IV PUSH ×3 (06:07→21:12)
[2025-08-25 06:38] LABS: Hematocrit 34.3 % (42.0-52.0); Hemoglobin 11.2 g/dL (14.0-18.0); Immature Granulocyte Percent A 2.2 % (0-0.5); Lymphocytes Absolute Auto 1.39 K/mm3 (0.9-3.2); Mean Corpuscular HGB Conc 32.7 g/dl (32-36); Mean Corpuscular Hemoglobin 32.5 pg (26-34); Mean Corpuscular Volume 99.4 fl (80-100); Nucleated Red Blood Cells Absolute Auto 0.000 K/mm3 (0.0-0.012); Nucleated Red Blood Cells Perc 0.0 % (0.0-0.2); Platelet Count Result 631 k/mm3 (150-375); Red Blood Count 3.45 M/mm3 (4.6-6.20); White Blood Count 9.9 K/mm3 (4.5-10.0)
[2025-08-25 06:53] LABS: Alanine Aminotransferase 14 U/L (6-50); Albumin Level 3.1 g/dL (3.5-5.1); Alkaline Phosphatase 78 U/L (38-126); Anion Gap 5 mmol/L (4-12); Aspartate Amino Transferase 42 U/L (17-59); Bilirubin,Total 0.7 mg/dL (0.2-1.3); Blood Urea Nitrogen 14 mg/dL (9-20); CRP 5.6 mg/dL (<1.0); Calcium 8.4 mg/dL (8.4-10.2); Carbon Dioxide 24 mmol/L (22-30); Chloride 107 mmol/L (98-107); Estimated CRCL calculation 67 ml/min; Estimated Glomerular Filt Rate > 60; Glucose 119 mg/dL (65-110); Magnesium 2.1 mg/dL (1.6-2.3); Potassium 3.5 mmol/L (3.4-5.0); Sodium 136 mmol/L (137-145); Total Protein 6.9 g/dL (6.3-8.2)
[2025-08-25] MEDS: FAMOTIDINE 20 MG/2 ML VIAL IV PUSH (08:33)
[2025-08-25] MEDS: ENOXAPARIN 80 MG/0.8 ML SYRINGE SUB-Q ×2 (08:33→20:32)
[2025-08-25] MEDS: FLUCONAZOLE 400 MG/NACL 200 ML 400 MG/200 ML BAG 100 MG IVPB (08:34)
[2025-08-25] MEDS: LOSARTAN POTASSIUM 100 MG TABLET PO (09:31)
--- NOTE | 2025-08-25 11:09 | P.PNGS_ITS ---
Progress Note: A&P Assessment and Plan (1) Bowel perforation: Code(s): K63.1 - Perforation of intestine (nontraumatic) Status: Acute Assessment and Plan: Laparotomy and repair 08/17/2025. Second-look laparotomy with abdominal washout, 08/19/2025. Had several bowel movements yesterday. Abdomen much softer and no longer distended. Bowel sounds are not active but there are definitely some bowel sounds. Wound is still healing well. MERON draining serosanguineous fluid. Labs look good. We will discontinue the NG tube and start him on clear liquids. I advised him to go very slowly with the clear liquids, taking only 1 or possibly 2 items on the tray that he receives. Advance diet slowly as patient tolerates. (2) Status post colon resection: Code(s): Z90.49 - Acquired absence of other specified parts of digestive tract Status: Acute Assessment and Plan: Hand access laparoscopic sigmoidectomy was the initial procedure and was performed 08/10/2025. (3) Intra-abdominal abscess: Code(s): K65.1 - Peritoneal abscess Status: Acute Assessment and Plan: Percutaneous CT-guided pelvic drain placed transgluteal 08/16/2025. Cultures grew Avani albicans. Infectious Disease consult appreciated. Advised to continue fluconazole and Zosyn today and possibly tomorrow. (4) Chronic anticoagulation: Code(s): Z79.01 - [facility] (current) use of anticoagulants Status: Chronic Assessment and Plan: Therapeutic dose of enoxaparin restarted yesterday. Patient had history pulmonary embolism is reason for chronic anticoagulation. (5) Protein-calorie malnutrition, severe: Code(s): E43 - Unspecified severe protein-calorie malnutrition Status: Acute Assessment and Plan: Resume full TPN with lipids. Monitor carefully. (6) Bronchiectasis: Qualifiers: Bronchiectasis type: uncomplicated Qualified Code(s): J47.9 - Bronchiectasis, uncomplicated Code(s): J47.9 - Bronchiectasis, uncomplicated Status: Chronic Assessment and Plan: Sats are good on room air. Not coughing and seems to be doing well from a pulmonary standpoint. Despite chest x-ray reports and concern by hospitalist, do not feel patient has ever had pneumonia during this hospitalization. More likely atelectasis and bronchiectasis. Subjective Subjective Date/Time Seen: 08/25/25 11:09 Post Op day: #6 Patient reports: no new complaints, feels better, voiding w/o difficulty, flatus, bowel movement and afebrile Exam Const: General: cooperative, comfortable, no acute distress, alert and awake Orientation/consciousness: patient oriented x3 GI: Inspection: non-distended, incision (Dry and healing well) and other (MERON drain serosanguineous) GI Palp: Yes Soft to palpation, Yes Tenderness to palpation present (GI) (minimal tenderness, much softer), No Guarding due to palpation present (GI), No Hernia present, No Palpable mass present and No Rebound tenderness present Auscultation: Hypoactive bowel sounds present Neuro: General: patient oriented x3 and no focal motor deficits Extrem: General: no calf tenderness and no edema Psych: Affect: normal affect Insight: Good insight present (Psych) Judgement: Good judgement present (Psych) Objective Data Vital Signs Vital Signs: Vital Signs - 24 hr 08/24/25 14:00 08/24/25 15:57 08/24/25 19:35 Temperature 35.9 C L Pulse Rate 81 Respiratory Rate 20 Blood Pressure 169/90 H 153/80 H Pulse Oximetry 97 96 Oxygen Delivery Room Air 08/24/25 19:35 08/24/25 19:39 08/24/25 20:31 Temperature Pulse Rate 86 76 Respiratory Rate 14 14 Blood Pressure Pulse Oximetry Oxygen Delivery Room Air 08/24/25 21:29 08/25/25 05:48 Temperature 36.8 C 36.2 C L Pulse Rate 78 80 Respiratory Rate 17 16 Blood Pressure 148/77 H 147/80 H Pulse Oximetry 96 96 Oxygen Delivery Intake/Output Intake/Output: Intake & Output 08/22/25 08/23/25 08/24/25 08/25/25 23:59 23:59 23:59 23:59 Intake Total 1984.2 1877.5 2150 824.7 Output Total 2933 2520 1820 1257 Balance -948.8 -642.5 330 -432.3 Meds/Results Medications: Active Medications Generic Name Dose Route Start Last Admin Trade Name Freq PRN Reason Stop Dose Admin Acetaminophen 500 mg 08/25/25 08:33 Acetaminophen 500 Mg Tablet PO Q6H PRN Pain Rated 1-3 Alteplase, Recombinant 2 mg 08/20/25 21:24 Alteplase 2 Mg Vial (Cathflo) IV PUSH ONCE PRN Line Occlusion Dextrose 12.5 gm 08/15/25 07:56 Dextrose 50% 25 Gm/50 Ml Syringe IV PUSH PRN PRN Hypoglycemia Protocol Enoxaparin Sodium 80 mg 08/22/25 08:15 08/25/25 08:33 Enoxaparin 80 Mg/0.8 Ml Syringe SUB-Q 80 mg Q12HR ANNETTE Administration Glucagon 1 mg 08/15/25 07:56 Glucagon For Inj 1 Mg Vial IM PRN PRN Hypoglycemia Protocol Glucose 15 gm 08/15/25 07:56 Glucose Oral Gel 15 Gm Of Glucse In 37.5 Gm Tube PO PRN PRN Hypoglycemia Protocol Hydrochlorothiazide 25 mg 08/26/25 09:00 Hydrochlorothiazide 25 Mg Tablet PO QAM ANNETTE Ibuprofen 800 mg in 200 mls @ 400 mls/hr 08/10/25 13:04 08/25/25 06:06 Caldolor 800 Mg/200 Ml IVPB 400 mls/hr Q6H PRN Administration Breakthrough Pain Rated 1-3 or NPO Dextrose 1,000 mls @ 50 mls/hr 08/15/25 07:56 Dextrose 10% IV CONT .Q20H PRN if PN is interrupted Dextrose 1,000 mls @ 100 mls/hr 08/15/25 07:56 Dextrose 5% 1,000 Ml IVPB PRN PRN Hypoglycemia Protocol Fat Emulsion Intravenous 250 mls @ 20.833 mls/hr 08/21/25 10:00 08/24/25 10:37 Lipids 20% IVPB 250 mls/hr On Hold: 08/25/25 08:32 Q24H ANNETTE Administration Multivitamins 1.25 ml/ 1,002.5 mls @ 70 mls/hr 08/23/25 09:35 08/25/25 00:58 Multivitamins 1.25 ml/ Amino IV CONT 40 mls/hr Acids/Electrolytes/Dextrose .[id number] ANNETTE Administration Protocol Fluconazole 400 mg in 200 mls @ 100 mls/hr 08/24/25 09:00 08/25/25 08:34 Diflucan 400 Mg/Nacl 200 Ml IVPB 100 mls/hr DAILY ANNETTE Administration Piperacillin Sod/Tazobactam 100 mls @ 200 mls/hr 08/23/25 20:00 08/25/25 08:34 Sod 4.5 gm/ Sodium Chloride IVPB 200 mls/hr Q6H ANNETTE Administration Insulin Aspart 3 - 6 units 08/19/25 12:00 08/25/25 05:50 Insulin Aspart (*Bkc) 100 Units/Ml SUB-Q Not Given Q6HR [facility] Protocol Losartan Potassium 100 mg 08/11/25 09:00 08/25/25 09:31 Losartan Potassium 100 Mg Tablet PO 100 mg DAILY ANNETTE Administration Morphine Sulfate 2 mg 08/24/25 23:13 08/24/25 23:30 Morphine Sulfate (*Crx) 4 Mg/Ml Inj IV PUSH 2 mg Q4H PRN Administration Pain Rated 6 or Greater Naloxone HCl 0.1 mg 08/10/25 13:04 Naloxone Hcl 0.4 Mg/Ml Vial IV PUSH Q2M PRN Opiate Reversal Ondansetron HCl 4 mg 08/10/25 13:04 08/20/25 20:15 Ondansetron Inj 4 Mg/2 Ml Vial IV PUSH 4 mg Q4H PRN Administration Nausea And Vomiting Oxycodone/Acetaminophen 1 tablet 08/25/25 08:33 Oxycodone/Acetaminophen (*Crx) 5-325 Mg Tablet PO Q4H PRN Pain Rated 4-6 Sodium Chloride 10 ml 08/15/25 14:00 08/25/25 06:07 Central Line Flush IV PUSH 10 ml Q8HR ANNETTE Administration Sodium Chloride 10 ml 08/15/25 11:41 Central Line Flush IV PUSH PRN PRN with TPN bag changes Sodium Chloride 20 ml 08/15/25 11:41 Central Line Flush IV PUSH PRN PRN after blood draws Trazodone HCl 50 mg 08/10/25 13:04 Trazodone Hcl 50 Mg Tablet PO HS PRN Insomnia Radiology Results: ITS Impressions Chest CTA 08/13/25 16:42 IMPRESSION: 1. Negative for pulmonary embolism. Bilateral probable pneumonia. 2. Intra-abdominal free air possibly postoperative in nature relatively unchanged compared to the previous exam Abdomen/Pelvis CT 08/15/25 08:38 IMPRESSION: 1. Ileus and/or developing small bowel obstruction. 2. Free intraperitoneal air favoring recent postoperative change. 3. Peritonitis, with scattered ascites and interloop fluid. 4. Worrisome for cystitis, unless recent catheter manipulation. 5. Significant bibasilar atelectasis and/or airspace disease, with small left effusion. Catheter Placement CT 08/16/25 14:04 IMPRESSION: 1. Successful CT-guided right transgluteal abscess drainage. 2. 60 mL fluid was sent for aerobic and anaerobic cultures. 3. The catheter will be managed by Dr. Anderson. Small Bowel X-Ray 08/17/25 13:42 Impression: 1: Incomplete small bowel study with delayed passage of contrast into the distal small bowel. Study terminated due to complications with patient. Proximal small bowel dilated with multiple dilated distal loops of small bowel. Findings compatible with obstruction. Chest X-Ray 08/19/25 07:52 Impression: 1: Bibasilar airspace disease may represent pneumonia and/or atelectasis. Abdomen X-Ray 08/24/25 08:27 IMPRESSION: 1. Slight improvement in either a postoperative ileus or less likely partial small bowel obstruction. Labs Labs: Laboratory Results - last 24 hr 08/24/25 08/24/25 08/24/25 11:18 18:00 23:24 WBC RBC Hgb Hct MCV MCH MCHC RDW Plt Count MPV Immature Gran % (Auto) Neut % (Auto) Lymph % (Auto) [place] % (Auto) Eos % (Auto) Baso % (Auto) Lymph # (Auto) [place] # (Auto) Eos # (Auto) Baso # (Auto) Abs Immat Gran (auto) Absolute Neuts (auto) Absolute Nucleated RBC Nucleated RBC % Sodium Potassium Chloride Carbon Dioxide Anion Gap BUN Creatinine Estim Creat Clear Calc Estimated GFR Glucose POC Capillary Glucose 118 H 125 H 134 H Calcium Magnesium Total Bilirubin AST ALT Alkaline Phosphatase C-Reactive Protein Total Protein Albumin 08/25/25 08/25/25 05:29 05:50 WBC 9.9 RBC 3.45 L Hgb 11.2 L Hct 34.3 L MCV 99.4 MCH 32.5 MCHC 32.7 RDW 13.6 Plt Count 631 H MPV 8.5 Immature Gran % (Auto) 2.2 H Neut % (Auto) 69.4 Lymph % (Auto) 14.1 L [place] % (Auto) 6.8 Eos % (Auto) 6.1 H Baso % (Auto) 1.4 H Lymph # (Auto) 1.39 [place] # (Auto) 0.7 H Eos # (Auto) 0.6 H Baso # (Auto) 0.1 Abs Immat Gran (auto) 0.22 H Absolute Neuts (auto) 6.8 H Absolute Nucleated RBC 0.000 Nucleated RBC % 0.0 Sodium 136 L Potassium 3.5 Chloride 107 Carbon Dioxide 24 Anion Gap 5 BUN 14 Creatinine 1.06 Estim Creat Clear Calc 67 Estimated GFR > 60 Glucose 119 H POC Capillary Glucose 139 H Calcium 8.4 Magnesium 2.1 Total Bilirubin 0.7 AST 42 ALT 14 Alkaline Phosphatase 78 C-Reactive Protein 5.6 H Total Protein 6.9 Albumin 3.1 L
[2025-08-25 13:35] VITALS: BP 174/83; PULSE 40; RESP 18; TEMP 35.6; O2SAT 98
[2025-08-25] MEDS: oxyCODONE/ACETAMINOPHEN (*CRX) 5-325 MG TABLET 1 TABLET PO (14:37)
[2025-08-25] MEDS: AMINO ACIDS 5%/D15W/E-LYTES/CA 1,000 ML with MULTIVITAMINS-12 INJ VIAL 1 1.25 ML, MULTI... 70 ML IV CONT (15:33)
--- NOTE | 2025-08-25 18:34 | PM.IMPN2 ---
Assessment and Plan Assessment and Plan (1) Obstruction of small intestine after surgical procedure: Code(s): K91.30 - Postprocedural intestinal obstruction, unspecified as to partial versus complete Status: Acute Assessment and Plan: Was found to have small-bowel obstruction after extubation and transfer from ICU as he had vomiting of tube feeds overnight. Tube feeds were held and placed on management suction, surgery is on board and managing as SBO. Patient has been NPO once more, TPN was resumed. Surgery considers this may be postoperative ileus versus SBO, they have ordered KUB to assess. -management per surgery -NG tube removed, patient is on clear liquid diet (2) Acute respiratory failure: Code(s): J96.00 - Acute respiratory failure, unspecified whether with hypoxia or hypercapnia Status: Resolved Assessment and Plan: Acute respiratory failure likely related to anesthesia and surgery for small bowel perforation on 08/18 -patient currently on CMV mode of ventilation, peep of 5, 50% FiO2, will wean FiO2 to maintain O2 sats > 92% -continue DuoNebs -08/19: Successfully extubated, currently on 2 L nasal cannula with adequate O2 sats Continue incentive spirometry -08/20: Continues to be stable, transferred to floor. -08/21: Resolved (3) Bowel perforation: Code(s): K63.1 - Perforation of intestine (nontraumatic) Status: Acute Assessment and Plan: 08/18: Exploratory laparotomy, small-bowel perforation, adhesiolysis, removal of pigtail catheter drain. 08/17: Patient's pigtail drain had entry contents, small-bowel follow-through with water-soluble contrast was consistent with small-bowel obstruction 08/19: Second-look laparotomy with abdominal washout -discussed with surgery, patient did have a perforation of the jejunum also had enteric contents in the peritoneal cavity -continue Zosyn (08/18) -continue micafungin(08/19) 08/20: discussed with surgery this morning, recommended starting trickle tube feeds at 10 mL/hour, hold TPN 08/21: TPN resumed as SBO has continued, and patient was not tolerating tube feeds 08/23: Surgery has requested ID consult for antifungal management of positive michael on abdominal abscess culture. 08/24: ID recommended complete antifungal and antibiotics 08/25. 08/25: Lasted antibiotics today, will discontinue tomorrow. (4) Intra-abdominal abscess: Code(s): K65.1 - Peritoneal abscess Status: Acute Assessment and Plan: 08/16/2025: Status post percutaneous drainage by Interventional Radiology for pelvic fluid collection status post recent sigmoidectomy (CT-guided right transgluteal abscess drainage catheter placement) (5) Protein-calorie malnutrition, severe: Code(s): E43 - Unspecified severe protein-calorie malnutrition Status: Acute Assessment and Plan: On TPN at this time as he is NPO due to SBO/ileus (6) Status post colon resection: Code(s): Z90.49 - Acquired absence of other specified parts of digestive tract Status: Acute Assessment and Plan: 08/10/2025: Sigmoidectomy for recurring diverticulitis (7) History of DVT (deep vein thrombosis): Code(s): Z86.718 - Personal history of other venous thrombosis and embolism Status: Acute Assessment and Plan: Patient has been on Xarelto as outpatient which is currently on hold -continue prophylactic Lovenox per surgery (8) Bronchiectasis: Qualifiers: Bronchiectasis type: uncomplicated Qualified Code(s): J47.9 - Bronchiectasis, uncomplicated Code(s): J47.9 - Bronchiectasis, uncomplicated Status: Chronic Assessment and Plan: In March 2025 but had an abdominal chest x-ray and bronchiectasis on the chest CT. He followed up with Dr. Disla, the excelsior cutter, who did an extensive workup along with a 6 minute walk study which she passed. The excelsior cutter did find past CT scan that showed bronchiectatic changes. Patient was cleared for surgery. (9) Hypertension: Qualifiers: Hypertension type: primary hypertension Qualified Code(s): I10 - Essential (primary) hypertension Code(s): I10 - Essential (primary) hypertension Status: Chronic Assessment and Plan: Patient is on losartan 100 mg and hydrochlorothiazide 12.5 mg, hydrochlorothiazide has been increased to 25 mg -may need additional antihypertensive therapy as blood pressure has been elevated still. Will re-evaluate tomorrow 08/26. Plan Continue conservative management for ileus/SBO. Antihypertensive management as well. DVT prophylaxis: Lovenox SQ Stress ulcer prophylaxis: Famotidine Nutrition: TPN Medical Record Review I have reviewed the following patient records and this information was taken into consideration when formulating the assessment and plan.: previous labs and previous hospitalizations Consultations Consultations: I have discussed the care of this pt with the consulting providers. Subjective Date/time seen: 08/25/25 18:34 Interval history: Casey Kearns is a 60 year old male with a past medical history of PE, HTN, DVT, bronchiectasis, diverticulitis requiring several inpatient admissions presented to [facility] on 08/10 for an elected sigmoidectomy to avoid further episodes of diverticulitis. Patient was initially scheduled for the sigmoidectomy in March 2025 but had an abnormal chest x-ray and bronchiectasis on a chest CT. Patient followed up with excelsior cutter Dr. Disla for further workup of his abnormal CT. Patient was able to pass a [address] Disla found past CT scans that showed the bronchi ectatic change had been there for many years. Patient also has a history of hypospadias with meatal stenosis creating difficulty passing a Anand catheter. Urology was requested to place bilateral ureteral stents for assistance in identifying the ureters and perform a urethral meatal dilatation. Patient has a history of a right leg DVT and PE. He takes Xarelto 20 mg daily for anticoagulation. 08/10/2025: Patient underwent a hand assisted laparoscopic sigmoidectomy with anastomosis and a drain placement 08/17/2025: Underwent an exploratory laparotomy, small-bowel perforation, adhesiolysis, removal of pigtail catheter drain. 08/19/2025: 2nd look laparotomy, abdominal washout 08/19/2025: Successfully extubated 08/20/2025: Patient seen and examined the ICU, remains extubated, on 2 L nasal cannula, is awake, alert, oriented, able to answer questions, overnight he had some pain but this has improved this morning. Urine output has been adequate, afebrile, hemodynamically stable. Denies any nausea, vomiting, shortness of breath or chest pain 08/21/2025: Transferred to IMU, overnight had episode of vomiting and ultimately did not tolerate tube feeds. Feeds were halted, LIS started on NG tube. Patient was seen by surgery and recommended conservative management, with continued NG decompression, and resumption of TPN as he remains NPO. 08/22: K 5.5 > 3.2 on repeat despite no potassium reducing therapy (was unable to give lokelma due to NPO status, had given insulin and duoneb). Will rely more on latter result, and replace K. Once K is stable can transfer to floor. Surgery continues to follow, SBO may be more ileus picture, they are obtaining KUB. 08/23: Continued to be having small BMs, and generally improving. Surgery has seen and still recommends NPO/conservative management with NG tube at this time. TPN to be continued. Anand has been discontinued per surgery. 08/24: Improving, still producing BM. Surgery on board, still recommending NPO/TPN while SBO continues to improve. Per ID, last day of ABX for positive michael can be 08/25. 08/25: Seen by surgery, NG tube is been removed and patient was started on very slow clear liquid diet at this time. Today is last day of antibiotics, will discontinue tomorrow. Blood pressure has been elevated, hydrochlorothiazide was increased to 25 mg. Further adjustments may be needed as blood pressure appears to continue to be quite elevated. Review of Systems Review of Systems: All systems reviewed & are unremarkable except as noted in HPI and below Exam Narrative: General: Awake, alert, in no acute distress NG tube, Anand removed. TPN no longer necessary if patient is still able to tolerate diet. HEENT:? Pupils equal and reactive, sclera is clear, Neck:? Supple Respiratory:? Coarse breath sounds at bases bilaterally, adequate air entry, no wheezing Cardiac:? S1-S2 is normal, regular rate and rhythm Abdomen:? Soft, tender to palpation, nondistended, hypoactive bowel sounds were appreciated. Abdominal dressing in place, clean, dry and intact Extremities:? No edema, palpable pedal pulses Neuro:? Patient is awake, alert, oriented, nonfocal, answers to questions appropriately and follows simple commands Skin:? Warm and dry Psych:? Normal mentation and affect Objective Data Vital Signs Vital Signs: Vital Signs - 24 hr 08/24/25 19:35 08/24/25 19:35 08/24/25 19:39 Temperature Pulse Rate 86 76 Respiratory Rate 14 14 Blood Pressure Pulse Oximetry 96 Oxygen Delivery Room Air 08/24/25 20:31 08/24/25 21:29 08/25/25 05:48 Temperature 98.3 F 97.2 F L Pulse Rate 78 80 Respiratory Rate 17 16 Blood Pressure 148/77 H 147/80 H Pulse Oximetry 96 96 Oxygen Delivery Room Air 08/25/25 13:35 Temperature 96.1 F L Pulse Rate 40 L Respiratory Rate 18 Blood Pressure 174/83 H Pulse Oximetry 98 Oxygen Delivery Intake/Output Intake/Output: Intake & Output 08/22/25 08/23/25 08/24/25 08/25/25 23:59 23:59 23:59 23:59 Intake Total 1984.2 1877.5 2150 2188.0 Output Total 2933 2520 1820 1257 Balance -948.8 -642.5 330 931.0 Meds/Results Medications: Active Medications Generic Name Dose Route Start Last Admin Trade Name Freq PRN Reason Stop Dose Admin Acetaminophen 500 mg 08/25/25 08:33 Acetaminophen 500 Mg Tablet PO Q6H PRN Pain Rated 1-3 Alteplase, Recombinant 2 mg 08/20/25 21:24 Alteplase 2 Mg Vial (Cathflo) IV PUSH ONCE PRN Line Occlusion Dextrose 12.5 gm 08/15/25 07:56 Dextrose 50% 25 Gm/50 Ml Syringe IV PUSH PRN PRN Hypoglycemia Protocol Enoxaparin Sodium 80 mg 08/22/25 08:15 08/25/25 08:33 Enoxaparin 80 Mg/0.8 Ml Syringe SUB-Q 80 mg Q12HR ANNETTE Administration Glucagon 1 mg 08/15/25 07:56 Glucagon For Inj 1 Mg Vial IM PRN PRN Hypoglycemia Protocol Glucose 15 gm 08/15/25 07:56 Glucose Oral Gel 15 Gm Of Glucse In 37.5 Gm Tube PO PRN PRN Hypoglycemia Protocol Hydrochlorothiazide 25 mg 08/26/25 09:00 Hydrochlorothiazide 25 Mg Tablet PO QAM ANNETTE Ibuprofen 800 mg in 200 mls @ 400 mls/hr 08/10/25 13:04 08/25/25 06:06 Caldolor 800 Mg/200 Ml IVPB 400 mls/hr Q6H PRN Administration Breakthrough Pain Rated 1-3 or NPO Dextrose 1,000 mls @ 50 mls/hr 08/15/25 07:56 Dextrose 10% IV CONT .Q20H PRN if PN is interrupted Dextrose 1,000 mls @ 100 mls/hr 08/15/25 07:56 Dextrose 5% 1,000 Ml IVPB PRN PRN Hypoglycemia Protocol Fat Emulsion Intravenous 250 mls @ 20.833 mls/hr 08/21/25 10:00 08/24/25 10:37 Lipids 20% IVPB 250 mls/hr On Hold: 08/25/25 08:32 Q24H ANNETTE Administration Multivitamins 1.25 ml/ 1,002.5 mls @ 70 mls/hr 08/23/25 09:35 08/25/25 15:33 Multivitamins 1.25 ml/ Amino IV CONT 70 mls/hr Acids/Electrolytes/Dextrose .[id number] ANNETTE Administration Protocol Fluconazole 400 mg in 200 mls @ 100 mls/hr 08/24/25 09:00 08/25/25 10:34 Diflucan 400 Mg/Nacl 200 Ml IVPB Infused DAILY ANNETTE Infusion Piperacillin Sod/Tazobactam 100 mls @ 200 mls/hr 08/23/25 20:00 08/25/25 14:58 Sod 4.5 gm/ Sodium Chloride IVPB Infused Q6H ANNETTE Infusion Insulin Aspart 3 - 6 units 08/19/25 12:00 08/25/25 18:01 Insulin Aspart (*Bkc) 100 Units/Ml SUB-Q Not Given Q6HR [facility] Protocol Losartan Potassium 100 mg 08/11/25 09:00 08/25/25 09:31 Losartan Potassium 100 Mg Tablet PO 100 mg DAILY ANNETTE Administration Morphine Sulfate 2 mg 08/24/25 23:13 08/24/25 23:30 Morphine Sulfate (*Crx) 4 Mg/Ml Inj IV PUSH 2 mg Q4H PRN Administration Pain Rated 6 or Greater Naloxone HCl 0.1 mg 08/10/25 13:04 Naloxone Hcl 0.4 Mg/Ml Vial IV PUSH Q2M PRN Opiate Reversal Ondansetron HCl 4 mg 08/10/25 13:04 08/20/25 20:15 Ondansetron Inj 4 Mg/2 Ml Vial IV PUSH 4 mg Q4H PRN Administration Nausea And Vomiting Oxycodone/Acetaminophen 1 tablet 08/25/25 08:33 08/25/25 14:37 Oxycodone/Acetaminophen (*Crx) 5-325 Mg Tablet PO 1 tablet Q4H PRN Administration Pain Rated 4-6 Sodium Chloride 10 ml 08/15/25 14:00 08/25/25 14:28 Central Line Flush IV PUSH 10 ml Q8HR ANNETTE Administration Sodium Chloride 10 ml 08/15/25 11:41 Central Line Flush IV PUSH PRN PRN with TPN bag changes Sodium Chloride 20 ml 08/15/25 11:41 Central Line Flush IV PUSH PRN PRN after blood draws Trazodone HCl 50 mg 08/10/25 13:04 Trazodone Hcl 50 Mg Tablet PO HS PRN Insomnia Radiology Results: ITS Impressions Chest CTA 08/13/25 16:42 IMPRESSION: 1. Negative for pulmonary embolism. Bilateral probable pneumonia. 2. Intra-abdominal free air possibly postoperative in nature relatively unchanged compared to the previous exam Abdomen/Pelvis CT 08/15/25 08:38 IMPRESSION: 1. Ileus and/or developing small bowel obstruction. 2. Free intraperitoneal air favoring recent postoperative change. 3. Peritonitis, with scattered ascites and interloop fluid. 4. Worrisome for cystitis, unless recent catheter manipulation. 5. Significant bibasilar atelectasis and/or airspace disease, with small left effusion. Catheter Placement CT 08/16/25 14:04 IMPRESSION: 1. Successful CT-guided right transgluteal abscess drainage. 2. 60 mL fluid was sent for aerobic and anaerobic cultures. 3. The catheter will be managed by Dr. Anderson. Small Bowel X-Ray 08/17/25 13:42 Impression: 1: Incomplete small bowel study with delayed passage of contrast into the distal small bowel. Study terminated due to complications with patient. Proximal small bowel dilated with multiple dilated distal loops of small bowel. Findings compatible with obstruction. Chest X-Ray 08/19/25 07:52 Impression: 1: Bibasilar airspace disease may represent pneumonia and/or atelectasis. Abdomen X-Ray 08/24/25 08:27 IMPRESSION: 1. Slight improvement in either a postoperative ileus or less likely partial small bowel obstruction. Labs Labs: Laboratory Results - last 24 hr 08/24/25 08/25/25 08/25/25 23:24 05:29 05:50 WBC 9.9 RBC 3.45 L Hgb 11.2 L Hct 34.3 L MCV 99.4 MCH 32.5 MCHC 32.7 RDW 13.6 Plt Count 631 H MPV 8.5 Immature Gran % (Auto) 2.2 H Neut % (Auto) 69.4 Lymph % (Auto) 14.1 L [place] % (Auto) 6.8 Eos % (Auto) 6.1 H Baso % (Auto) 1.4 H Lymph # (Auto) 1.39 [place] # (Auto) 0.7 H Eos # (Auto) 0.6 H Baso # (Auto) 0.1 Abs Immat Gran (auto) 0.22 H Absolute Neuts (auto) 6.8 H Absolute Nucleated RBC 0.000 Nucleated RBC % 0.0 Sodium 136 L Potassium 3.5 Chloride 107 Carbon Dioxide 24 Anion Gap 5 BUN 14 Creatinine 1.06 Estim Creat Clear Calc 67 Estimated GFR > 60 Glucose 119 H POC Capillary Glucose 134 H 139 H Calcium 8.4 Magnesium 2.1 Total Bilirubin 0.7 AST 42 ALT 14 Alkaline Phosphatase 78 C-Reactive Protein 5.6 H Total Protein 6.9 Albumin 3.1 L 08/25/25 08/25/25 11:36 17:51 WBC RBC Hgb Hct MCV MCH MCHC RDW Plt Count MPV Immature Gran % (Auto) Neut % (Auto) Lymph % (Auto) [place] % (Auto) Eos % (Auto) Baso % (Auto) Lymph # (Auto) [place] # (Auto) Eos # (Auto) Baso # (Auto) Abs Immat Gran (auto) Absolute Neuts (auto) Absolute Nucleated RBC Nucleated RBC % Sodium Potassium Chloride Carbon Dioxide Anion Gap BUN Creatinine Estim Creat Clear Calc Estimated GFR Glucose POC Capillary Glucose 129 H 118 H Calcium Magnesium Total Bilirubin AST ALT Alkaline Phosphatase C-Reactive Protein Total Protein Albumin Hospitalist MIPS Advance Care Plan I have confirmed that the patient's Advanced Care Plan is present, code status is documented, or surrogate decision maker is listed in patient medical record.: Yes Medication Reconciliation I have utilized all available resources to obtain, update and review the patients current medications (includes all prescriptions, OTC, herbals, cannabis, and nutritional supplements).: Yes
[2025-08-25 21:13] VITALS: BP 135/81; PULSE 73; RESP 16; TEMP 36.6; O2SAT 96
[2025-08-26] MEDS: AMINO ACIDS 5%/D15W/E-LYTES/CA 1,000 ML with MULTIVITAMINS-12 INJ VIAL 1 1.25 ML, MULTI... 70 ML IV CONT ×2 (05:35→20:26)
[2025-08-26] MEDS: CENTRAL LINE FLUSH 10 ML IV PUSH ×4 (05:38→21:10)
[2025-08-26 05:44] VITALS: BP 138/85; PULSE 83; RESP 14; TEMP 37.1; O2SAT 95
[2025-08-26] MEDS: LOSARTAN POTASSIUM 100 MG TABLET PO (08:37)
[2025-08-26] MEDS: oxyCODONE/ACETAMINOPHEN (*CRX) 5-325 MG TABLET 1 TABLET PO (08:38)
[2025-08-26] MEDS: ENOXAPARIN 80 MG/0.8 ML SYRINGE SUB-Q ×2 (08:40→20:27)
[2025-08-26 09:21] LABS: Hematocrit 37.7 % (42.0-52.0); Hemoglobin 12.2 g/dL (14.0-18.0); Mean Corpuscular HGB Conc 32.4 g/dl (32-36); Mean Corpuscular Hemoglobin 32.4 pg (26-34); Mean Corpuscular Volume 100.0 fl (80-100); Platelet Count Result 654 k/mm3 (150-375); Red Blood Count 3.77 M/mm3 (4.6-6.20); White Blood Count 12.7 K/mm3 (4.5-10.0)
--- NOTE | 2025-08-26 09:46 | WPDINFPN2 ---
Progress Note: A&P Assessment and Plan (1) Intra-abdominal abscess: Code(s): K65.1 - Peritoneal abscess Status: Acute Assessment and Plan: ASSESSMENT: 1. S/p elective lap sigmoidectomy with anastomosis on 08/10 c/b fluid collection drained on 08/16-->michael albicans on cx but pt on broad spectrum abx at that time so michael being isolated is not surprising. Pt then had drainage on 08/16 but another ex lap on 08/17 for small bowel perforation repair and 08/19 with 2nd look and washout. Everything per op note, looks like appropriate source control was achieved. 2. DVT/PE, HTN RECOMMENDATIONS: monitor off abx d/w pharmacy staff Pt was seen via video telehealth consultation with the assistance of staff. Chart, data and patient info reviewed. Patient was located at [facility] while I was in my [place] office. Pt gave consent. Subjective Date/time seen: 08/26/25 09:46 Interval history: no fevers mild leukocytosis NGT out Abd drain out tolerating liquids +Flatus +BM no diarrhea Exam Narrative: NAD, non-toxic, on room air abd soft dressed Objective Data Vital Signs Vital Signs: Vital Signs - 24 hr 08/25/25 13:35 08/25/25 21:12 08/25/25 21:13 Temperature 96.1 F L 97.8 F Pulse Rate 40 L 73 Respiratory Rate 18 16 Blood Pressure 174/83 H 135/81 Pulse Oximetry 98 96 Oxygen Delivery Room Air 08/26/25 05:44 Temperature 98.7 F Pulse Rate 83 Respiratory Rate 14 Blood Pressure 138/85 Pulse Oximetry 95 Oxygen Delivery Intake/Output Intake/Output: Intake & Output 08/23/25 08/24/25 08/25/25 08/26/25 23:59 23:59 23:59 23:59 Intake Total 1877.5 2150 2738.0 2222.3 Output Total 2520 1820 1267 300 Balance -642.5 330 1471.0 1922.3 Meds/Results Medications: Active Medications Generic Name Dose Route Start Last Admin Trade Name Freq PRN Reason Stop Dose Admin Acetaminophen 500 mg 08/25/25 08:33 Acetaminophen 500 Mg Tablet PO Q6H PRN Pain Rated 1-3 Alteplase, Recombinant 2 mg 08/20/25 21:24 Alteplase 2 Mg Vial (Cathflo) IV PUSH ONCE PRN Line Occlusion Dextrose 12.5 gm 08/15/25 07:56 Dextrose 50% 25 Gm/50 Ml Syringe IV PUSH PRN PRN Hypoglycemia Protocol Enoxaparin Sodium 80 mg 08/22/25 08:15 08/26/25 08:40 Enoxaparin 80 Mg/0.8 Ml Syringe SUB-Q 80 mg Q12HR ANNETTE Administration Glucagon 1 mg 08/15/25 07:56 Glucagon For Inj 1 Mg Vial IM PRN PRN Hypoglycemia Protocol Glucose 15 gm 08/15/25 07:56 Glucose Oral Gel 15 Gm Of Glucse In 37.5 Gm Tube PO PRN PRN Hypoglycemia Protocol Hydrochlorothiazide 25 mg 08/26/25 09:00 08/26/25 08:40 Hydrochlorothiazide 25 Mg Tablet PO 25 mg QAM ANNETTE Administration Ibuprofen 800 mg in 200 mls @ 400 mls/hr 08/10/25 13:04 08/25/25 06:06 Caldolor 800 Mg/200 Ml IVPB 400 mls/hr Q6H PRN Administration Breakthrough Pain Rated 1-3 or NPO Dextrose 1,000 mls @ 50 mls/hr 08/15/25 07:56 Dextrose 10% IV CONT .Q20H PRN if PN is interrupted Dextrose 1,000 mls @ 100 mls/hr 08/15/25 07:56 Dextrose 5% 1,000 Ml IVPB PRN PRN Hypoglycemia Protocol Fat Emulsion Intravenous 250 mls @ 20.833 mls/hr 08/21/25 10:00 08/24/25 10:37 Lipids 20% IVPB 250 mls/hr On Hold: 08/25/25 08:32 Q24H ANNETTE Administration Multivitamins 1.25 ml/ 1,002.5 mls @ 70 mls/hr 08/23/25 09:35 08/26/25 05:35 Multivitamins 1.25 ml/ Amino IV CONT 70 mls/hr Acids/Electrolytes/Dextrose .[id number] ANNETTE Administration Protocol Insulin Aspart 3 - 6 units 08/19/25 12:00 08/26/25 05:39 Insulin Aspart (*Bkc) 100 Units/Ml SUB-Q Not Given Q6HR ANNETTE Protocol Losartan Potassium 100 mg 08/11/25 09:00 08/26/25 08:37 Losartan Potassium 100 Mg Tablet PO 100 mg DAILY ANNETTE Administration Miscellaneous Information 1 each 08/26/25 00:01 Please Renew Tpn. Per [employer] Procedure, It Will Discontinue If Not Renewed. XX 09/25/25 00:00 CLARIFY ANNETTE Morphine Sulfate 2 mg 08/24/25 23:13 08/24/25 23:30 Morphine Sulfate (*Crx) 4 Mg/Ml Inj IV PUSH 2 mg Q4H PRN Administration Pain Rated 6 or Greater Naloxone HCl 0.1 mg 08/10/25 13:04 Naloxone Hcl 0.4 Mg/Ml Vial IV PUSH Q2M PRN Opiate Reversal Ondansetron HCl 4 mg 08/10/25 13:04 08/20/25 20:15 Ondansetron Inj 4 Mg/2 Ml Vial IV PUSH 4 mg Q4H PRN Administration Nausea And Vomiting Oxycodone/Acetaminophen 1 tablet 08/25/25 08:33 08/26/25 08:38 Oxycodone/Acetaminophen (*Crx) 5-325 Mg Tablet PO 1 tablet Q4H PRN Administration Pain Rated 4-6 Sodium Chloride 10 ml 08/15/25 14:00 08/26/25 05:38 Central Line Flush IV PUSH 10 ml Q8HR ANNETTE Administration Sodium Chloride 10 ml 08/15/25 11:41 Central Line Flush IV PUSH PRN PRN with TPN bag changes Sodium Chloride 20 ml 08/15/25 11:41 Central Line Flush IV PUSH PRN PRN after blood draws Trazodone HCl 50 mg 08/10/25 13:04 Trazodone Hcl 50 Mg Tablet PO HS PRN Insomnia Radiology Results: ITS Impressions Chest CTA 08/13/25 16:42 IMPRESSION: 1. Negative for pulmonary embolism. Bilateral probable pneumonia. 2. Intra-abdominal free air possibly postoperative in nature relatively unchanged compared to the previous exam Abdomen/Pelvis CT 08/15/25 08:38 IMPRESSION: 1. Ileus and/or developing small bowel obstruction. 2. Free intraperitoneal air favoring recent postoperative change. 3. Peritonitis, with scattered ascites and interloop fluid. 4. Worrisome for cystitis, unless recent catheter manipulation. 5. Significant bibasilar atelectasis and/or airspace disease, with small left effusion. Catheter Placement CT 08/16/25 14:04 IMPRESSION: 1. Successful CT-guided right transgluteal abscess drainage. 2. 60 mL fluid was sent for aerobic and anaerobic cultures. 3. The catheter will be managed by Dr. Anderson. Small Bowel X-Ray 08/17/25 13:42 Impression: 1: Incomplete small bowel study with delayed passage of contrast into the distal small bowel. Study terminated due to complications with patient. Proximal small bowel dilated with multiple dilated distal loops of small bowel. Findings compatible with obstruction. Chest X-Ray 08/19/25 07:52 Impression: 1: Bibasilar airspace disease may represent pneumonia and/or atelectasis. Abdomen X-Ray 08/24/25 08:27 IMPRESSION: 1. Slight improvement in either a postoperative ileus or less likely partial small bowel obstruction. Labs Labs: Laboratory Results - last 24 hr 08/25/25 08/25/25 08/25/25 11:36 17:51 23:35 WBC RBC Hgb Hct MCV MCH MCHC RDW Plt Count MPV POC Capillary Glucose 129 H 118 H 123 H 08/26/25 08/26/25 05:37 09:16 WBC 12.7 H RBC 3.77 L Hgb 12.2 L Hct 37.7 L MCV 100.0 MCH 32.4 MCHC 32.4 RDW 13.8 Plt Count 654 H MPV 8.3 POC Capillary Glucose 125 H
[2025-08-26 09:52] LABS: Anion Gap 7 mmol/L (4-12); Blood Urea Nitrogen 14 mg/dL (9-20); CRP 4.2 mg/dL (<1.0); Calcium 9.0 mg/dL (8.4-10.2); Carbon Dioxide 23 mmol/L (22-30); Chloride 105 mmol/L (98-107); Estimated CRCL calculation 71 ml/min; Estimated Glomerular Filt Rate > 60; Glucose 164 mg/dL (65-110); Potassium 3.5 mmol/L (3.4-5.0); Sodium 135 mmol/L (137-145); Triglycerides 351 mg/dL (<150)
--- NOTE | 2025-08-26 10:20 | PCNFU ---
Nutrition Follow-Up Complete: Inadequate energy intake related to NPO status and altered GI function as evidenced by current diet orders Goal:Meet estimated needs Pt current nutrition is Clear liquids, TPN Clinimix E 02/03 running at 70ml/hr to provide 1693kcals, 84g protein over 24hrs. Nutrition recommendation: continue with current plan of care Last recorded weight is 79.6 kg. Bowel Motility: +BM 08/25 Labs Reviewed: Hgb:11.2, HCT:34.3, Na:136, Glu:119, PHos:6.4 Meds Noted: novolog, lovenox, HCTZ Skin: WNL Additional Notes: NG removed, pt started on clear liquids, tolerating well at this time. TPN running and meeting 85-100% of needs. Agree with orders, Advance diet as tolerated Monitor TPN, wt, labs. Follow up in every Friday and Friday
--- NOTE | 2025-08-26 10:45 | P.PNGS_ITS ---
Progress Note: A&P Assessment and Plan (1) Bowel perforation: Code(s): K63.1 - Perforation of intestine (nontraumatic) Status: Acute Assessment and Plan: * Laparotomy and repair 08/17/2025. Second-look laparotomy with abdominal washout 08/19/2025. * Patient continues to have small bowel movements and pass flatus. Abdomen soft and non-distended this morning. Bowel sounds present. Tolerating clear liquids without nausea or vomiting. Will consider slowly advancing diet today. * WBC 12.7 today from 9.9 yesterday. MERON drain with minimal serosanguineous fluid. Incision is clean and dry with no surrounding redness, purulence, or other signs of infection. Afebrile. Abdominal culture growing avani. Appreciate ID recommendations for antibiotic coverage. * Continue to encourage OOB and ambulation. (2) Status post colon resection: Code(s): Z90.49 - Acquired absence of other specified parts of digestive tract Status: Acute Assessment and Plan: Hand access laparoscopic sigmoidectomy was the initial procedure and was performed 08/10/2025. (3) Intra-abdominal abscess: Code(s): K65.1 - Peritoneal abscess Status: Acute Assessment and Plan: Percutaneous CT-guided pelvic drain placed transgluteal 08/16/2025. Cultures grew Avani albicans. Infectious Disease consult appreciated. Advised to continue fluconazole and Zosyn today and possibly tomorrow. (4) Chronic anticoagulation: Code(s): Z79.01 - buttermaker (current) use of anticoagulants Status: Chronic Assessment and Plan: patient is on chronic anticoagulation due to history of pulmonary embolism. Therapeutic dose of enoxaparin restarted. (5) Protein-calorie malnutrition, severe: Code(s): E43 - Unspecified severe protein-calorie malnutrition Status: Acute Assessment and Plan: Resume full TPN with lipids. Monitor carefully. Will discuss TPN stop date with surgeon. (6) Bronchiectasis: Qualifiers: Bronchiectasis type: uncomplicated Qualified Code(s): J47.9 - Bronchiectasis, uncomplicated Code(s): J47.9 - Bronchiectasis, uncomplicated Status: Chronic Assessment and Plan: Patient continues to sat well on room air. Continue to monitor closely. Plan Discussed patient's case and plan of care with Dr. Anderson. Subjective Subjective Date/Time Seen: 08/26/25 10:45 Patient reports: no new complaints, feels better, tolerating liquids well, flatus and bowel movement (small) Interval history: Sitting up in bed comfortably. WBC did go back up to 12.7 from 9.9. Patient asymptomatic. Exam Const: General: comfortable and no acute distress GI: Inspection: non-distended and incision (clean, dry and healing well) GI Palp: Yes Soft to palpation and No Tenderness to palpation present (GI) Auscultation: normal bowel sounds Other: MERON drain with minimal serosanguineous drainage. Objective Data Vital Signs Vital Signs: Vital Signs - 24 hr 08/25/25 13:35 08/25/25 21:12 08/25/25 21:13 Temperature 96.1 F L 97.8 F Pulse Rate 40 L 73 Respiratory Rate 18 16 Blood Pressure 174/83 H 135/81 Pulse Oximetry 98 96 Oxygen Delivery Room Air 08/26/25 05:44 Temperature 98.7 F Pulse Rate 83 Respiratory Rate 14 Blood Pressure 138/85 Pulse Oximetry 95 Oxygen Delivery Intake/Output Intake/Output: Intake & Output 08/23/25 08/24/25 08/25/25 08/26/25 23:59 23:59 23:59 23:59 Intake Total 1877.5 2150 2738.0 2222.3 Output Total 2520 1820 1267 300 Balance -642.5 330 1471.0 1922.3 Meds/Results Medications: Active Medications Generic Name Dose Route Start Last Admin Trade Name Freq PRN Reason Stop Dose Admin Acetaminophen 500 mg 08/25/25 08:33 Acetaminophen 500 Mg Tablet PO Q6H PRN Pain Rated 1-3 Alteplase, Recombinant 2 mg 08/20/25 21:24 Alteplase 2 Mg Vial (Cathflo) IV PUSH ONCE PRN Line Occlusion Dextrose 12.5 gm 08/15/25 07:56 Dextrose 50% 25 Gm/50 Ml Syringe IV PUSH PRN PRN Hypoglycemia Protocol Enoxaparin Sodium 80 mg 08/22/25 08:15 08/26/25 08:40 Enoxaparin 80 Mg/0.8 Ml Syringe SUB-Q 80 mg Q12HR ANNETTE Administration Glucagon 1 mg 08/15/25 07:56 Glucagon For Inj 1 Mg Vial IM PRN PRN Hypoglycemia Protocol Glucose 15 gm 08/15/25 07:56 Glucose Oral Gel 15 Gm Of Glucse In 37.5 Gm Tube PO PRN PRN Hypoglycemia Protocol Hydrochlorothiazide 25 mg 08/26/25 09:00 08/26/25 08:40 Hydrochlorothiazide 25 Mg Tablet PO 25 mg QAM ANNETTE Administration Ibuprofen 800 mg in 200 mls @ 400 mls/hr 08/10/25 13:04 08/25/25 06:06 Caldolor 800 Mg/200 Ml IVPB 400 mls/hr Q6H PRN Administration Breakthrough Pain Rated 1-3 or NPO Dextrose 1,000 mls @ 50 mls/hr 08/15/25 07:56 Dextrose 10% IV CONT .Q20H PRN if PN is interrupted Dextrose 1,000 mls @ 100 mls/hr 08/15/25 07:56 Dextrose 5% 1,000 Ml IVPB PRN PRN Hypoglycemia Protocol Fat Emulsion Intravenous 250 mls @ 20.833 mls/hr 08/21/25 10:00 08/24/25 10:37 Lipids 20% IVPB 250 mls/hr On Hold: 08/25/25 08:32 Q24H ANNETTE Administration Multivitamins 1.25 ml/ 1,002.5 mls @ 70 mls/hr 08/23/25 09:35 08/26/25 05:35 Multivitamins 1.25 ml/ Amino IV CONT 70 mls/hr Acids/Electrolytes/Dextrose .[id number] ANNETTE Administration Protocol Insulin Aspart 3 - 6 units 08/19/25 12:00 08/26/25 05:39 Insulin Aspart (*Bkc) 100 Units/Ml SUB-Q Not Given Q6HR ANNETTE Protocol Losartan Potassium 100 mg 08/11/25 09:00 08/26/25 08:37 Losartan Potassium 100 Mg Tablet PO 100 mg DAILY ANNETTE Administration Miscellaneous Information 1 each 08/26/25 00:01 Please Renew Tpn. Per [employer] Procedure, It Will Discontinue If Not Renewed. XX 09/25/25 00:00 CLARIFY ANNETTE Morphine Sulfate 2 mg 08/24/25 23:13 08/24/25 23:30 Morphine Sulfate (*Crx) 4 Mg/Ml Inj IV PUSH 2 mg Q4H PRN Administration Pain Rated 6 or Greater Naloxone HCl 0.1 mg 08/10/25 13:04 Naloxone Hcl 0.4 Mg/Ml Vial IV PUSH Q2M PRN Opiate Reversal Ondansetron HCl 4 mg 08/10/25 13:04 08/20/25 20:15 Ondansetron Inj 4 Mg/2 Ml Vial IV PUSH 4 mg Q4H PRN Administration Nausea And Vomiting Oxycodone/Acetaminophen 1 tablet 08/25/25 08:33 08/26/25 08:38 Oxycodone/Acetaminophen (*Crx) 5-325 Mg Tablet PO 1 tablet Q4H PRN Administration Pain Rated 4-6 Sodium Chloride 10 ml 08/15/25 14:00 08/26/25 05:38 Central Line Flush IV PUSH 10 ml Q8HR ANNETTE Administration Sodium Chloride 10 ml 08/15/25 11:41 Central Line Flush IV PUSH PRN PRN with TPN bag changes Sodium Chloride 20 ml 08/15/25 11:41 Central Line Flush IV PUSH PRN PRN after blood draws Trazodone HCl 50 mg 08/10/25 13:04 Trazodone Hcl 50 Mg Tablet PO HS PRN Insomnia Radiology Results: ITS Impressions Chest CTA 08/13/25 16:42 IMPRESSION: 1. Negative for pulmonary embolism. Bilateral probable pneumonia. 2. Intra-abdominal free air possibly postoperative in nature relatively unchanged compared to the previous exam Abdomen/Pelvis CT 08/15/25 08:38 IMPRESSION: 1. Ileus and/or developing small bowel obstruction. 2. Free intraperitoneal air favoring recent postoperative change. 3. Peritonitis, with scattered ascites and interloop fluid. 4. Worrisome for cystitis, unless recent catheter manipulation. 5. Significant bibasilar atelectasis and/or airspace disease, with small left effusion. Catheter Placement CT 08/16/25 14:04 IMPRESSION: 1. Successful CT-guided right transgluteal abscess drainage. 2. 60 mL fluid was sent for aerobic and anaerobic cultures. 3. The catheter will be managed by Dr. Anderson. Small Bowel X-Ray 08/17/25 13:42 Impression: 1: Incomplete small bowel study with delayed passage of contrast into the distal small bowel. Study terminated due to complications with patient. Proximal small bowel dilated with multiple dilated distal loops of small bowel. Findings compatible with obstruction. Chest X-Ray 08/19/25 07:52 Impression: 1: Bibasilar airspace disease may represent pneumonia and/or atelectasis. Abdomen X-Ray 08/24/25 08:27 IMPRESSION: 1. Slight improvement in either a postoperative ileus or less likely partial small bowel obstruction. Labs Labs: Laboratory Results - last 24 hr 08/25/25 08/25/25 08/25/25 11:36 17:51 23:35 WBC RBC Hgb Hct MCV MCH MCHC RDW Plt Count MPV Sodium Potassium Chloride Carbon Dioxide Anion Gap BUN Creatinine Estim Creat Clear Calc Estimated GFR Glucose POC Capillary Glucose 129 H 118 H 123 H Calcium C-Reactive Protein Triglycerides 08/26/25 08/26/25 05:37 09:16 WBC 12.7 H RBC 3.77 L Hgb 12.2 L Hct 37.7 L MCV 100.0 MCH 32.4 MCHC 32.4 RDW 13.8 Plt Count 654 H MPV 8.3 Sodium 135 L Potassium 3.5 Chloride 105 Carbon Dioxide 23 Anion Gap 7 BUN 14 Creatinine 0.99 Estim Creat Clear Calc 71 Estimated GFR > 60 Glucose 164 H POC Capillary Glucose 125 H Calcium 9.0 C-Reactive Protein 4.2 H Triglycerides 351 H
[2025-08-26 13:54] VITALS: BP 136/76; PULSE 89; RESP 14; TEMP 36.5; O2SAT 96
--- NOTE | 2025-08-26 15:56 | P.PNIM_ITS ---
Assessment and Plan Assessment and Plan (1) Obstruction of small intestine after surgical procedure: Code(s): K91.30 - Postprocedural intestinal obstruction, unspecified as to partial versus complete Status: Acute Assessment and Plan: Was found to have small-bowel obstruction after extubation and transfer from ICU as he had vomiting of tube feeds overnight. Tube feeds were held and placed on management suction, surgery is on board and managing as SBO. Patient has been NPO once more, TPN was resumed. Surgery considers this may be postoperative ileus versus SBO, they have ordered KUB to assess. -management per surgery -NG tube removed, advance diet as tolerated (2) Acute respiratory failure: Code(s): J96.00 - Acute respiratory failure, unspecified whether with hypoxia or hypercapnia Status: Resolved Assessment and Plan: Acute respiratory failure likely related to anesthesia and surgery for small bowel perforation on 08/18 -patient currently on CMV mode of ventilation, peep of 5, 50% FiO2, will wean FiO2 to maintain O2 sats > 92% -continue DuoNebs -08/19: Successfully extubated, currently on 2 L nasal cannula with adequate O2 sats Continue incentive spirometry -08/20: Continues to be stable, transferred to floor. -08/21: Resolved (3) Bowel perforation: Code(s): K63.1 - Perforation of intestine (nontraumatic) Status: Acute Assessment and Plan: 08/18: Exploratory laparotomy, small-bowel perforation, adhesiolysis, removal of pigtail catheter drain. 08/17: Patient's pigtail drain had entry contents, small-bowel follow-through with water-soluble contrast was consistent with small-bowel obstruction 08/19: Second-look laparotomy with abdominal washout -discussed with surgery, patient did have a perforation of the jejunum also had enteric contents in the peritoneal cavity -continue Zosyn (08/18) -continue micafungin(08/19) 08/20: discussed with surgery this morning, recommended starting trickle tube feeds at 10 mL/hour, hold TPN 08/21: TPN resumed as SBO has continued, and patient was not tolerating tube feeds 08/23: Surgery has requested ID consult for antifungal management of positive michael on abdominal abscess culture. 08/24: ID recommended complete antifungal and antibiotics 08/25. 08/25: Lasted antibiotics today, will discontinue tomorrow. 08/26: Antibiotics/antifungal discontinued, will continue to follow ID recommendations (4) Intra-abdominal abscess: Code(s): K65.1 - Peritoneal abscess Status: Acute Assessment and Plan: 08/16/2025: Status post percutaneous drainage by Interventional Radiology for pelvic fluid collection status post recent sigmoidectomy (CT-guided right transgluteal abscess drainage catheter placement) MERON drain in place, management per surgery (5) Protein-calorie malnutrition, severe: Code(s): E43 - Unspecified severe protein-calorie malnutrition Status: Acute Assessment and Plan: On TPN at this time as he is NPO due to SBO/ileus (6) Status post colon resection: Code(s): Z90.49 - Acquired absence of other specified parts of digestive tract Status: Acute Assessment and Plan: 08/10/2025: Sigmoidectomy for recurring diverticulitis (7) History of DVT (deep vein thrombosis): Code(s): Z86.718 - Personal history of other venous thrombosis and embolism Status: Acute Assessment and Plan: Patient has been on Xarelto as outpatient which is currently on hold -continue prophylactic Lovenox per surgery (8) Bronchiectasis: Qualifiers: Bronchiectasis type: uncomplicated Qualified Code(s): J47.9 - Bronchiectasis, uncomplicated Code(s): J47.9 - Bronchiectasis, uncomplicated Status: Chronic Assessment and Plan: In March 2025 but had an abdominal chest x-ray and bronchiectasis on the chest CT. He followed up with Dr. Disla, the racing mechanic, who did an extensive workup along with a 6 minute walk study which she passed. The racing mechanic did find past CT scan that showed bronchiectatic changes. Patient was cleared for surgery. (9) Hypertension: Qualifiers: Hypertension type: primary hypertension Qualified Code(s): I10 - Essential (primary) hypertension Code(s): I10 - Essential (primary) hypertension Status: Chronic Assessment and Plan: Patient is on losartan 100 mg and hydrochlorothiazide 12.5 mg, hydrochlorothiazide has been increased to 25 mg -continue losartan 100 mg, hydrochlorothiazide 25 mg. BP is holding stable at this time. Plan Continue conservative management for ileus/SBO. Antihypertensive management as well. DVT prophylaxis: Lovenox SQ Stress ulcer prophylaxis: Famotidine Nutrition: TPN Medical Record Review I have reviewed the following patient records and this information was taken into consideration when formulating the assessment and plan.: previous labs and previous hospitalizations Consultations Consultations: I have discussed the care of this pt with the consulting providers. Subjective Date/time seen: 08/26/25 15:56 Interval history: Casey Kearns is a 60 year old male with a past medical history of PE, HTN, DVT, bronchiectasis, diverticulitis requiring several inpatient admissions presented to [facility] on 08/10 for an elected sigmoidectomy to avoid further episodes of diverticulitis. Patient was initially scheduled for the sigmoidectomy in March 2025 but had an abnormal chest x-ray and bronchiectasis on a chest CT. Patient followed up with racing mechanic Dr. Disla for further workup of his abnormal CT. Patient was able to pass a [address] Disla found past CT scans that showed the bronchi ectatic change had been there for many years. Patient also has a history of hypospadias with meatal stenosis creating difficulty passing a Anand catheter. Urology was requested to place bilateral ureteral stents for assistance in identifying the ureters and perform a urethral meatal dilatation. Patient has a history of a right leg DVT and PE. He takes Xarelto 20 mg daily for anticoagulation. 08/10/2025: Patient underwent a hand assisted laparoscopic sigmoidectomy with anastomosis and a drain placement 08/17/2025: Underwent an exploratory laparotomy, small-bowel perforation, adhesiolysis, removal of pigtail catheter drain. 08/19/2025: 2nd look laparotomy, abdominal washout 08/19/2025: Successfully extubated 08/20/2025: Patient seen and examined the ICU, remains extubated, on 2 L nasal cannula, is awake, alert, oriented, able to answer questions, overnight he had some pain but this has improved this morning. Urine output has been adequate, afebrile, hemodynamically stable. Denies any nausea, vomiting, shortness of b reath or chest pain 08/21/2025: Transferred to IMU, overnight had episode of vomiting and ultimately did not tolerate tube feeds. Feeds were halted, LIS started on NG tube. Patient was seen by surgery and recommended conservative management, with continued NG decompression, and resumption of TPN as he remains NPO. 08/22: K 5.5 > 3.2 on repeat despite no potassium reducing therapy (was unable to give lokelma due to NPO status, had given insulin and duoneb). Will rely more on latter result, and replace K. Once K is stable can transfer to floor. Surgery continues to follow, SBO may be more ileus picture, they are obtaining KUB. 08/23: Continued to be having small BMs, and generally improving. Surgery has seen and still recommends NPO/conservative management with NG tube at this time. TPN to be continued. Anand has been discontinued per surgery. 08/24: Improving, still producing BM. Surgery on board, still recommending NPO/TPN while SBO continues to improve. Per ID, last day of ABX for positive michael can be 08/25. 08/25: Seen by surgery, NG tube is been removed and patient was started on very slow clear liquid diet at this time. Today is last day of antibiotics, will discontinue tomorrow. Blood pressure has been elevated, hydrochlorothiazide was increased to 25 mg. Further adjustments may be needed as blood pressure appears to continue to be quite elevated. 08/26: Continues to improve clinically and tolerate diet which is being slowly advanced per surgery recommendations with reductions in TPN dosage. Review of Systems Review of Systems: All systems reviewed & are unremarkable except as noted in HPI and below Exam Narrative: General: Awake, alert, in no acute distress NG tube, Anand removed. TPN no longer necessary if patient is still able to tolerate diet. HEENT:? Pupils equal and reactive, sclera is clear, Neck:? Supple Respiratory:? Coarse breath sounds at bases bilaterally, adequate air entry, no wheezing Cardiac:? S1-S2 is normal, regular rate and rhythm Abdomen:? Soft, tender to palpation, nondistended, hypoactive bowel sounds were appreciated. Abdominal dressing in place, clean, dry and intact Extremities:? No edema, palpable pedal pulses Neuro:? Patient is awake, alert, oriented, nonfocal, answers to questions appropriately and follows simple commands Skin:? Warm and dry Psych:? Normal mentation and affect Objective Data Vital Signs Vital Signs: Vital Signs - 24 hr 08/25/25 21:12 08/25/25 21:13 08/26/25 05:44 Temperature 97.8 F 98.7 F Pulse Rate 73 83 Respiratory Rate 16 14 Blood Pressure 135/81 138/85 Pulse Oximetry 96 95 Oxygen Delivery Room Air 08/26/25 13:54 Temperature 97.7 F Pulse Rate 89 Respiratory Rate 14 Blood Pressure 136/76 Pulse Oximetry 96 Oxygen Delivery Intake/Output Intake/Output: Intake & Output 08/23/25 08/24/25 08/25/25 08/26/25 23:59 23:59 23:59 23:59 Intake Total 1877.5 2150 2738.0 2462.3 Output Total 2520 1820 1267 300 Balance -642.5 330 1471.0 2162.3 Meds/Results Medications: Active Medications Generic Name Dose Route Start Last Admin Trade Name Freq PRN Reason Stop Dose Admin Acetaminophen 500 mg 08/25/25 08:33 Acetaminophen 500 Mg Tablet PO Q6H PRN Pain Rated 1-3 Alteplase, Recombinant 2 mg 08/20/25 21:24 Alteplase 2 Mg Vial (Cathflo) IV PUSH ONCE PRN Line Occlusion Dextrose 12.5 gm 08/15/25 07:56 Dextrose 50% 25 Gm/50 Ml Syringe IV PUSH PRN PRN Hypoglycemia Protocol Enoxaparin Sodium 80 mg 08/22/25 08:15 08/26/25 08:40 Enoxaparin 80 Mg/0.8 Ml Syringe SUB-Q 80 mg Q12HR ANNETTE Administration Glucagon 1 mg 08/15/25 07:56 Glucagon For Inj 1 Mg Vial IM PRN PRN Hypoglycemia Protocol Glucose 15 gm 08/15/25 07:56 Glucose Oral Gel 15 Gm Of Glucse In 37.5 Gm Tube PO PRN PRN Hypoglycemia Protocol Hydrochlorothiazide 25 mg 08/26/25 09:00 08/26/25 08:40 Hydrochlorothiazide 25 Mg Tablet PO 25 mg QAM ANNETTE Administration Ibuprofen 800 mg in 200 mls @ 400 mls/hr 08/10/25 13:04 08/25/25 06:06 Caldolor 800 Mg/200 Ml IVPB 400 mls/hr Q6H PRN Administration Breakthrough Pain Rated 1-3 or NPO Dextrose 1,000 mls @ 50 mls/hr 08/15/25 07:56 Dextrose 10% IV CONT .Q20H PRN if PN is interrupted Dextrose 1,000 mls @ 100 mls/hr 08/15/25 07:56 Dextrose 5% 1,000 Ml IVPB PRN PRN Hypoglycemia Protocol Fat Emulsion Intravenous 250 mls @ 20.833 mls/hr 08/21/25 10:00 08/24/25 10:37 Lipids 20% IVPB 250 mls/hr On Hold: 08/25/25 08:32 Q24H ANNETTE Administration Multivitamins 1.25 ml/ 1,002.5 mls @ 70 mls/hr 08/23/25 09:35 08/26/25 05:35 Multivitamins 1.25 ml/ Amino IV CONT 70 mls/hr Acids/Electrolytes/Dextrose .[id number] ANNETTE Administration Protocol Insulin Aspart 3 - 6 units 08/19/25 12:00 08/26/25 12:53 Insulin Aspart (*Bkc) 100 Units/Ml SUB-Q Not Given Q6HR ANNETTE Protocol Losartan Potassium 100 mg 08/11/25 09:00 08/26/25 08:37 Losartan Potassium 100 Mg Tablet PO 100 mg DAILY ANNETTE Administration Miscellaneous Information 1 each 08/26/25 00:01 Please Renew Tpn. Per [employer] Procedure, It Will Discontinue If Not Renewed. XX 09/25/25 00:00 CLARIFY ANNETTE Morphine Sulfate 2 mg 08/24/25 23:13 08/24/25 23:30 Morphine Sulfate (*Crx) 4 Mg/Ml Inj IV PUSH 2 mg Q4H PRN Administration Pain Rated 6 or Greater Naloxone HCl 0.1 mg 08/10/25 13:04 Naloxone Hcl 0.4 Mg/Ml Vial IV PUSH Q2M PRN Opiate Reversal Ondansetron HCl 4 mg 08/10/25 13:04 08/20/25 20:15 Ondansetron Inj 4 Mg/2 Ml Vial IV PUSH 4 mg Q4H PRN Administration Nausea And Vomiting Oxycodone/Acetaminophen 1 tablet 08/25/25 08:33 08/26/25 08:38 Oxycodone/Acetaminophen (*Crx) 5-325 Mg Tablet PO 1 tablet Q4H PRN Administration Pain Rated 4-6 Sodium Chloride 10 ml 08/15/25 14:00 08/26/25 15:27 Central Line Flush IV PUSH 10 ml Q8HR ANNETTE Administration Sodium Chloride 10 ml 08/15/25 11:41 Central Line Flush IV PUSH PRN PRN with TPN bag changes Sodium Chloride 20 ml 08/15/25 11:41 Central Line Flush IV PUSH PRN PRN after blood draws Trazodone HCl 50 mg 08/10/25 13:04 Trazodone Hcl 50 Mg Tablet PO HS PRN Insomnia Radiology Results: ITS Impressions Chest CTA 08/13/25 16:42 IMPRESSION: 1. Negative for pulmonary embolism. Bilateral probable pneumonia. 2. Intra-abdominal free air possibly postoperative in nature relatively unchanged compared to the previous exam Abdomen/Pelvis CT 08/15/25 08:38 IMPRESSION: 1. Ileus and/or developing small bowel obstruction. 2. Free intraperitoneal air favoring recent postoperative change. 3. Peritonitis, with scattered ascites and interloop fluid. 4. Worrisome for cystitis, unless recent catheter manipulation. 5. Significant bibasilar atelectasis and/or airspace disease, with small left effusion. Catheter Placement CT 08/16/25 14:04 IMPRESSION: 1. Successful CT-guided right transgluteal abscess drainage. 2. 60 mL fluid was sent for aerobic and anaerobic cultures. 3. The catheter will be managed by Dr. Anderson. Small Bowel X-Ray 08/17/25 13:42 Impression: 1: Incomplete small bowel study with delayed passage of contrast into the distal small bowel. Study terminated due to complications with patient. Proximal small bowel dilated with multiple dilated distal loops of small bowel. Findings compatible with obstruction. Chest X-Ray 08/19/25 07:52 Impression: 1: Bibasilar airspace disease may represent pneumonia and/or atelectasis. Abdomen X-Ray 08/24/25 08:27 IMPRESSION: 1. Slight improvement in either a postoperative ileus or less likely partial small bowel obstruction. Labs Labs: Laboratory Results - last 24 hr 08/25/25 08/25/25 08/26/25 17:51 23:35 05:37 WBC RBC Hgb Hct MCV MCH MCHC RDW Plt Count MPV Sodium Potassium Chloride Carbon Dioxide Anion Gap BUN Creatinine Estim Creat Clear Calc Estimated GFR Glucose POC Capillary Glucose 118 H 123 H 125 H Calcium C-Reactive Protein Triglycerides 08/26/25 08/26/25 09:16 11:39 WBC 12.7 H RBC 3.77 L Hgb 12.2 L Hct 37.7 L MCV 100.0 MCH 32.4 MCHC 32.4 RDW 13.8 Plt Count 654 H MPV 8.3 Sodium 135 L Potassium 3.5 Chloride 105 Carbon Dioxide 23 Anion Gap 7 BUN 14 Creatinine 0.99 Estim Creat Clear Calc 71 Estimated GFR > 60 Glucose 164 H POC Capillary Glucose 119 H Calcium 9.0 C-Reactive Protein 4.2 H Triglycerides 351 H Hospitalist MIPS Advance Care Plan I have confirmed that the patient's Advanced Care Plan is present, code status is documented, or surrogate decision maker is listed in patient medical record.: Yes Medication Reconciliation I have utilized all available resources to obtain, update and review the patients current medications (includes all prescriptions, OTC, herbals, cannabis, and nutritional supplements).: Yes
[2025-08-26 22:00] VITALS: BP 136/76; PULSE 84; RESP 16; TEMP 36.3; O2SAT 94
[2025-08-27] MEDS: CENTRAL LINE FLUSH 10 ML IV PUSH ×3 (05:56→21:20)
[2025-08-27] MEDS: CENTRAL LINE FLUSH 20 ML IV PUSH (05:56)
[2025-08-27 06:00] VITALS: BP 132/77; PULSE 88; RESP 18; TEMP 36.2; O2SAT 94
[2025-08-27 06:13] LABS: Anion Gap 6 mmol/L (4-12); Blood Urea Nitrogen 14 mg/dL (9-20); Calcium 9.2 mg/dL (8.4-10.2); Carbon Dioxide 27 mmol/L (22-30); Chloride 101 mmol/L (98-107); Estimated CRCL calculation 78 ml/min; Estimated Glomerular Filt Rate > 60; Glucose 105 mg/dL (65-110); Potassium 3.8 mmol/L (3.4-5.0); Sodium 134 mmol/L (137-145)
[2025-08-27] MEDS: LOSARTAN POTASSIUM 100 MG TABLET PO (08:44)
[2025-08-27] MEDS: ENOXAPARIN 80 MG/0.8 ML SYRINGE SUB-Q (08:44)
[2025-08-27] MEDS: AMINO ACIDS 5%/D15W/E-LYTES/CA 1,000 ML with MULTIVITAMINS-12 INJ VIAL 1 1.25 ML, MULTI... 70 ML IV CONT (10:10)
[2025-08-27 13:35] VITALS: BP 128/69; PULSE 94; RESP 18; TEMP 36.5; O2SAT 96
--- NOTE | 2025-08-27 13:39 | P.PNIM_ITS ---
Assessment and Plan Assessment and Plan (1) Obstruction of small intestine after surgical procedure: Code(s): K91.30 - Postprocedural intestinal obstruction, unspecified as to partial versus complete Status: Acute Assessment and Plan: Improving Was found to have small-bowel obstruction after extubation and transfer from ICU as he had vomiting of tube feeds overnight. Tube feeds were held and placed on management suction, surgery is on board and managing as SBO. Patient has been NPO once more, TPN was resumed. Surgery considers this may be postoperative ileus versus SBO, they have ordered KUB to assess. -management per surgery -NG tube removed, advance diet as tolerated (2) Acute respiratory failure: Code(s): J96.00 - Acute respiratory failure, unspecified whether with hypoxia or hypercapnia Status: Resolved Assessment and Plan: Acute respiratory failure likely related to anesthesia and surgery for small bowel perforation on 08/18 -patient currently on CMV mode of ventilation, peep of 5, 50% FiO2, will wean FiO2 to maintain O2 sats > 92% -continue DuoNebs -08/19: Successfully extubated, currently on 2 L nasal cannula with adequate O2 sats Continue incentive spirometry -08/20: Continues to be stable, transferred to floor. -08/21: Resolved (3) Bowel perforation: Code(s): K63.1 - Perforation of intestine (nontraumatic) Status: Resolved Assessment and Plan: 08/18: Exploratory laparotomy, small-bowel perforation, adhesiolysis, removal of pigtail catheter drain. 08/17: Patient's pigtail drain had entry contents, small-bowel follow-through with water-soluble contrast was consistent with small-bowel obstruction 08/19: Second-look laparotomy with abdominal washout -discussed with surgery, patient did have a perforation of the jejunum also had enteric contents in the peritoneal cavity -continue Zosyn (08/18) -continue micafungin(08/19) 08/20: discussed with surgery this morning, recommended starting trickle tube feeds at 10 mL/hour, hold TPN 08/21: TPN resumed as SBO has continued, and patient was not tolerating tube feeds 08/23: Surgery has requested ID consult for antifungal management of positive michael on abdominal abscess culture. 08/24: ID recommended complete antifungal and antibiotics 08/25. 08/25: Lasted antibiotics today, will discontinue tomorrow. 08/26: Antibiotics/antifungal discontinued, will continue to follow ID recommendations (4) Intra-abdominal abscess: Code(s): K65.1 - Peritoneal abscess Status: Acute Assessment and Plan: 08/16/2025: Status post percutaneous drainage by Interventional Radiology for pelvic fluid collection status post recent sigmoidectomy (CT-guided right transgluteal abscess drainage catheter placement) MERON drain in place, management per surgery (5) Protein-calorie malnutrition, severe: Code(s): E43 - Unspecified severe protein-calorie malnutrition Status: Acute Assessment and Plan: On TPN at this time, management per surgery. Patient is tolerating liquid diet (6) Status post colon resection: Code(s): Z90.49 - Acquired absence of other specified parts of digestive tract Status: Acute Assessment and Plan: 08/10/2025: Sigmoidectomy for recurring diverticulitis (7) History of DVT (deep vein thrombosis): Code(s): Z86.718 - Personal history of other venous thrombosis and embolism Status: Acute Assessment and Plan: Patient has been on Xarelto as outpatient which is currently on hold -continue prophylactic Lovenox per surgery (8) Bronchiectasis: Qualifiers: Bronchiectasis type: uncomplicated Qualified Code(s): J47.9 - Bronchiectasis, uncomplicated Code(s): J47.9 - Bronchiectasis, uncomplicated Status: Chronic Assessment and Plan: In March 2025 but had an abdominal chest x-ray and bronchiectasis on the chest CT. He followed up with Dr. Disla, the aircraft structural design engineer, who did an extensive workup along with a 6 minute walk study which she passed. The aircraft structural design engineer did find past CT scan that showed bronchiectatic changes. Patient was cleared for surgery. (9) Hypertension: Qualifiers: Hypertension type: primary hypertension Qualified Code(s): I10 - Essential (primary) hypertension Code(s): I10 - Essential (primary) hypertension Status: Chronic Assessment and Plan: Patient is on losartan 100 mg and hydrochlorothiazide 12.5 mg, hydrochlorothiazide has been increased to 25 mg -continue losartan 100 mg, hydrochlorothiazide 25 mg. BP is holding stable at this time. Plan Continue conservative management for ileus/SBO. Antihypertensive management as well. DVT prophylaxis: Lovenox SQ Stress ulcer prophylaxis: Famotidine Nutrition: TPN Medical Record Review I have reviewed the following patient records and this information was taken into consideration when formulating the assessment and plan.: previous labs and previous hospitalizations Consultations Consultations: I have discussed the care of this pt with the consulting providers. Subjective Date/time seen: 08/27/25 13:39 Interval history: Casey Kearns is a 60 year old male with a past medical history of PE, HTN, DVT, bronchiectasis, diverticulitis requiring several inpatient admissions presented to [facility] on 08/10 for an elected sigmoidectomy to avoid further episodes of diverticulitis. Patient was initially scheduled for the sigmoidectomy in March 2025 but had an abnormal chest x-ray and bronchiectasis on a chest CT. Patient followed up with aircraft structural design engineer Dr. Disla for further workup of his abnormal CT. Patient was able to pass a [address] Disla found past CT scans that showed the bronchi ectatic change had been there for many years. Patient also has a history of hypospadias with meatal stenosis creating difficulty passing a Anand catheter. Urology was requested to place bilateral ureteral stents for assistance in identifying the ureters and perform a urethral meatal dilatation. Patient has a history of a right leg DVT and PE. He takes Xarelto 20 mg daily for anticoagulation. 08/10/2025: Patient underwent a hand assisted laparoscopic sigmoidectomy with anastomosis and a drain placement 08/17/2025: Underwent an exploratory laparotomy, small-bowel perforation, adhesiolysis, removal of pigtail catheter drain. 08/19/2025: 2nd look laparotomy, abdominal washout 08/19/2025: Successfully extubated 08/20/2025: Patient seen and examined the ICU, remains extubated, on 2 L nasal cannula, is awake, alert, oriented, able to answer questions, overnight he had some pain but this has improved this morning. Urine output has been adequate, afebrile, hemodynamically stable. Denies any nausea, vomiting, shortness of breath or chest pain 08/21/2025: Transferred to IMU, overnight had episode of vomiting and ultimately did not tolerate tube feeds. Feeds were halted, LIS started on NG tube. Patient was seen by surgery and recommended conservative management, with continued NG decompression, and resumption of TPN as he remains NPO. 08/22: K 5.5 > 3.2 on repeat despite no potassium reducing therapy (was unable to give lokelma due to NPO status, had given insulin and duoneb). Will rely more on latter result, and replace K. Once K is stable can transfer to floor. Surgery continues to follow, SBO may be more ileus picture, they are obtaining KUB. 08/23: Continued to be having small BMs, and generally improving. Surgery has seen and still recommends NPO/conservative management with NG tube at this time. TPN to be continued. Anand has been discontinued per surgery. 08/24: Improving, still producing BM. Surgery on board, still recommending NPO/TPN while SBO continues to improve. Per ID, last day of ABX for positive michael can be 08/25. 08/25: Seen by surgery, NG tube is been removed and patient was started on very slow clear liquid diet at this time. Today is last day of antibiotics, will discontinue tomorrow. Blood pressure has been elevated, hydrochlorothiazide was increased to 25 mg. Further adjustments may be needed as blood pressure appears to continue to be quite elevated. 08/26-: Continues to improve clinically and tolerate diet which is being slowly advanced per surgery recommendations with reductions in TPN dosage. Review of Systems Review of Systems: All systems reviewed & are unremarkable except as noted in HPI and below Exam Narrative: General: Awake, alert, in no acute distress NG tube, Anand removed. HEENT:? Pupils equal and reactive, sclera is clear, Neck:? Supple Respiratory:? Coarse breath sounds at bases bilaterally, adequate air entry, no wheezing Cardiac:? S1-S2 is normal, regular rate and rhythm Abdomen:? Soft, tender to palpation, nondistended, hypoactive bowel sounds were appreciated. Abdominal dressing in place, clean, dry and intact Extremities:? No edema, palpable pedal pulses Neuro:? Patient is awake, alert, oriented, nonfocal, answers to questions appropriately and follows simple commands Skin:? Warm and dry Psych:? Normal mentation and affect Objective Data Vital Signs Vital Signs: Vital Signs - 24 hr 08/26/25 13:54 08/26/25 22:00 08/27/25 06:00 Temperature 97.7 F 97.4 F L 97.1 F L Pulse Rate 89 84 88 Respiratory Rate 14 16 18 Blood Pressure 136/76 136/76 132/77 Pulse Oximetry 96 94 94 Oxygen Delivery 08/27/25 09:00 08/27/25 13:35 Temperature 97.7 F Pulse Rate 94 Respiratory Rate 18 Blood Pressure 128/69 Pulse Oximetry 96 Oxygen Delivery Room Air Intake/Output Intake/Output: Intake & Output 08/24/25 08/25/25 08/26/25 08/27/25 23:59 23:59 23:59 23:59 Intake Total 2150 2738.0 4184.8 1451.3 Output Total 1820 1267 300 Balance 330 1471.0 3884.8 1451.3 Meds/Results Medications: Active Medications Generic Name Dose Route Start Last Admin Trade Name Freq PRN Reason Stop Dose Admin Acetaminophen 500 mg 08/25/25 08:33 Acetaminophen 500 Mg Tablet PO Q6H PRN Pain Rated 1-3 Hydrochlorothiazide 25 mg 08/26/25 09:00 08/27/25 08:44 Hydrochlorothiazide 25 Mg Tablet PO 25 mg QAM ANNETTE Administration Ibuprofen 800 mg in 200 mls @ 400 mls/hr 08/10/25 13:04 08/25/25 06:06 Caldolor 800 Mg/200 Ml IVPB 400 mls/hr Q6H PRN Administration Breakthrough Pain Rated 1-3 or NPO Losartan Potassium 100 mg 08/11/25 09:00 08/27/25 08:44 Losartan Potassium 100 Mg Tablet PO 100 mg DAILY ANNETTE Administration Morphine Sulfate 2 mg 08/24/25 23:13 08/24/25 23:30 Morphine Sulfate (*Crx) 4 Mg/Ml Inj IV PUSH 2 mg Q4H PRN Administration Pain Rated 6 or Greater Naloxone HCl 0.1 mg 08/10/25 13:04 Naloxone Hcl 0.4 Mg/Ml Vial IV PUSH Q2M PRN Opiate Reversal Ondansetron HCl 4 mg 08/10/25 13:04 08/20/25 20:15 Ondansetron Inj 4 Mg/2 Ml Vial IV PUSH 4 mg Q4H PRN Administration Nausea And Vomiting Oxycodone/Acetaminophen 1 tablet 08/25/25 08:33 08/26/25 08:38 Oxycodone/Acetaminophen (*Crx) 5-325 Mg Tablet PO 1 tablet Q4H PRN Administration Pain Rated 4-6 Rivaroxaban 20 mg 08/27/25 17:00 Rivaroxaban 20 Mg Tablet PO DAILY@1700 ANNETTE Sodium Chloride 10 ml 08/15/25 14:00 08/27/25 05:56 Central Line Flush IV PUSH 10 ml Q8HR ANNETTE Administration Sodium Chloride 10 ml 08/15/25 11:41 08/26/25 21:10 Central Line Flush IV PUSH 10 ml PRN PRN Administration with TPN bag changes Sodium Chloride 20 ml 08/15/25 11:41 08/27/25 05:56 Central Line Flush IV PUSH 20 ml PRN PRN Administration after blood draws Trazodone HCl 50 mg 08/10/25 13:04 Trazodone Hcl 50 Mg Tablet PO HS PRN Insomnia Radiology Results: ITS Impressions Chest CTA 08/13/25 16:42 IMPRESSION: 1. Negative for pulmonary embolism. Bilateral probable pneumonia. 2. Intra-abdominal free air possibly postoperative in nature relatively unchanged compared to the previous exam Abdomen/Pelvis CT 08/15/25 08:38 IMPRESSION: 1. Ileus and/or developing small bowel obstruction. 2. Free intraperitoneal air favoring recent postoperative change. 3. Peritonitis, with scattered ascites and interloop fluid. 4. Worrisome for cystitis, unless recent catheter manipulation. 5. Significant bibasilar atelectasis and/or airspace disease, with small left effusion. Catheter Placement CT 08/16/25 14:04 IMPRESSION: 1. Successful CT-guided right transgluteal abscess drainage. 2. 60 mL fluid was sent for aerobic and anaerobic cultures. 3. The catheter will be managed by Dr. Anderson. Small Bowel X-Ray 08/17/25 13:42 Impression: 1: Incomplete small bowel study with delayed passage of contrast into the distal small bowel. Study terminated due to complications with patient. Proximal small bowel dilated with multiple dilated distal loops of small bowel. Findings compatible with obstruction. Chest X-Ray 08/19/25 07:52 Impression: 1: Bibasilar airspace disease may represent pneumonia and/or atelectasis. Abdomen X-Ray 08/24/25 08:27 IMPRESSION: 1. Slight improvement in either a postoperative ileus or less likely partial small bowel obstruction. Labs Labs: Laboratory Results - last 24 hr 08/26/25 08/27/25 08/27/25 17:42 00:37 05:41 Sodium 134 L Potassium 3.8 Chloride 101 Carbon Dioxide 27 Anion Gap 6 BUN 14 Creatinine 0.90 Estim Creat Clear Calc 78 Estimated GFR > 60 Glucose 105 POC Capillary Glucose 122 H 134 H Calcium 9.2 08/27/25 08/27/25 05:58 11:04 Sodium Potassium Chloride Carbon Dioxide Anion Gap BUN Creatinine Estim Creat Clear Calc Estimated GFR Glucose POC Capillary Glucose 134 H 133 H Calcium Hospitalist MIPS Advance Care Plan I have confirmed that the patient's Advanced Care Plan is present, code status is documented, or surrogate decision maker is listed in patient medical record.: Yes Medication Reconciliation I have utilized all available resources to obtain, update and review the patients current medications (includes all prescriptions, OTC, herbals, cannabis , and nutritional supplements).: Yes
[2025-08-27] MEDS: RIVAROXABAN 20 MG TABLET PO (17:09)
--- NOTE | 2025-08-27 17:45 | PM.PNGS ---
Progress Note: A&P Assessment and Plan (1) Bowel perforation: Code(s): K63.1 - Perforation of intestine (nontraumatic) Status: Resolved Assessment and Plan: Laparotomy and repair 08/17/2025. Second-look laparotomy with abdominal washout, 08/19/2025. Continues to improve. No CBC done this morning so I will order 1 now as white count was slightly elevated yesterday. Will repeat CBC with diff and CMP tomorrow along with a CRP. Patient off antimicrobials. Advanced to regular diet today. Will have sharon removed and Steri-Strips placed today. Possibly home tomorrow if continues to do well. (2) Status post colon resection: Code(s): Z90.49 - Acquired absence of other specified parts of digestive tract Status: Acute Assessment and Plan: Hand access laparoscopic sigmoidectomy was the initial procedure and was performed 08/10/2025. (3) Intra-abdominal abscess: Code(s): K65.1 - Peritoneal abscess Status: Acute Assessment and Plan: Percutaneous CT-guided pelvic drain placed transgluteal 08/16/2025. Cultures grew Avani albicans. Infectious Disease consult appreciated. Monitoring off antibiotics since yesterday (4) Chronic anticoagulation: Code(s): Z79.01 - shelter (current) use of anticoagulants Status: Chronic Assessment and Plan: Therapeutic dose of enoxaparin restarted yesterday. Patient had history pulmonary embolism is reason for chronic anticoagulation. Will discontinue therapeutic dose of Lovenox and resume Xarelto. (5) Protein-calorie malnutrition, severe: Code(s): E43 - Unspecified severe protein-calorie malnutrition Status: Acute Assessment and Plan: Resume full TPN with lipids. Monitor carefully. Discontinue TPN today. Triglycerides still elevated. Will recheck again tomorrow. (6) Bronchiectasis: Qualifiers: Bronchiectasis type: uncomplicated Qualified Code(s): J47.9 - Bronchiectasis, uncomplicated Code(s): J47.9 - Bronchiectasis, uncomplicated Status: Chronic Assessment and Plan: Sats are good on room air. Not coughing and seems to be doing well from a pulmonary standpoint. Despite chest x-ray reports and concern by hospitalist, do not feel patient has ever had pneumonia during this hospitalization. More likely atelectasis and bronchiectasis. No pulmonary concerns at this time. Subjective Subjective Date/Time Seen: 08/27/25 17:45 Patient reports: feels better, tolerating liquids well, voiding w/o difficulty, bowel movement and afebrile Exam Const: General: comfortable and no acute distress Orientation/consciousness: patient oriented x3 GI: Inspection: non-distended, incision (Dry and healing well, dry dressing over MERON site) and scaphoid GI Palp: Yes Soft to palpation, Yes Tenderness to palpation present (GI) (Minimal appropriate tenderness), No Guarding due to palpation present (GI) and No Rebound tenderness present Auscultation: normal bowel sounds Neuro: General: patient oriented x3 and no focal motor deficits Extrem: General: no calf tenderness and no edema Psych: Affect: normal affect Insight: Good insight present (Psych) Judgement: Good judgement present (Psych) Objective Data Vital Signs Vital Signs: Vital Signs - 24 hr 08/26/25 22:00 08/27/25 06:00 08/27/25 09:00 Temperature 36.3 C L 36.2 C L Pulse Rate 84 88 Respiratory Rate 16 18 Blood Pressure 136/76 132/77 Pulse Oximetry 94 94 Oxygen Delivery Room Air 08/27/25 13:35 Temperature 36.5 C Pulse Rate 94 Respiratory Rate 18 Blood Pressure 128/69 Pulse Oximetry 96 Oxygen Delivery Intake/Output Intake/Output: Intake & Output 08/24/25 08/25/25 08/26/25 08/27/25 23:59 23:59 23:59 23:59 Intake Total 2150 2738.0 4184.8 1451.3 Output Total 1820 1267 300 Balance 330 1471.0 3884.8 1451.3 Meds/Results Medications: Active Medications Generic Name Dose Route Start Last Admin Trade Name Freq PRN Reason Stop Dose Admin Acetaminophen 500 mg 08/25/25 08:33 Acetaminophen 500 Mg Tablet PO Q6H PRN Pain Rated 1-3 Hydrochlorothiazide 25 mg 08/26/25 09:00 08/27/25 08:44 Hydrochlorothiazide 25 Mg Tablet PO 25 mg QAM ANNETTE Administration Ibuprofen 800 mg in 200 mls @ 400 mls/hr 08/10/25 13:04 08/25/25 06:06 Caldolor 800 Mg/200 Ml IVPB 400 mls/hr Q6H PRN Administration Breakthrough Pain Rated 1-3 or NPO Losartan Potassium 100 mg 08/11/25 09:00 08/27/25 08:44 Losartan Potassium 100 Mg Tablet PO 100 mg DAILY ANNETTE Administration Morphine Sulfate 2 mg 08/24/25 23:13 08/24/25 23:30 Morphine Sulfate (*Crx) 4 Mg/Ml Inj IV PUSH 2 mg Q4H PRN Administration Pain Rated 6 or Greater Naloxone HCl 0.1 mg 08/10/25 13:04 Naloxone Hcl 0.4 Mg/Ml Vial IV PUSH Q2M PRN Opiate Reversal Ondansetron HCl 4 mg 08/10/25 13:04 08/20/25 20:15 Ondansetron Inj 4 Mg/2 Ml Vial IV PUSH 4 mg Q4H PRN Administration Nausea And Vomiting Oxycodone/Acetaminophen 1 tablet 08/25/25 08:33 08/26/25 08:38 Oxycodone/Acetaminophen (*Crx) 5-325 Mg Tablet PO 1 tablet Q4H PRN Administration Pain Rated 4-6 Rivaroxaban 20 mg 08/27/25 17:00 08/27/25 17:09 Rivaroxaban 20 Mg Tablet PO 20 mg DAILY@1700 ANNETTE Administration Sodium Chloride 10 ml 08/15/25 14:00 08/27/25 14:50 Central Line Flush IV PUSH 10 ml Q8HR ANNETTE Administration Sodium Chloride 10 ml 08/15/25 11:41 08/26/25 21:10 Central Line Flush IV PUSH 10 ml PRN PRN Administration with TPN bag changes Sodium Chloride 20 ml 08/15/25 11:41 08/27/25 05:56 Central Line Flush IV PUSH 20 ml PRN PRN Administration after blood draws Trazodone HCl 50 mg 08/10/25 13:04 Trazodone Hcl 50 Mg Tablet PO HS PRN Insomnia Radiology Results: ITS Impressions Chest CTA 08/13/25 16:42 IMPRESSION: 1. Negative for pulmonary embolism. Bilateral probable pneumonia. 2. Intra-abdominal free air possibly postoperative in nature relatively unchanged compared to the previous exam Abdomen/Pelvis CT 08/15/25 08:38 IMPRESSION: 1. Ileus and/or developing small bowel obstruction. 2. Free intraperitoneal air favoring recent postoperative change. 3. Peritonitis, with scattered ascites and interloop fluid. 4. Worrisome for cystitis, unless recent catheter manipulation. 5. Significant bibasilar atelectasis and/or airspace disease, with small left effusion. Catheter Placement CT 08/16/25 14:04 IMPRESSION: 1. Successful CT-guided right transgluteal abscess drainage. 2. 60 mL fluid was sent for aerobic and anaerobic cultures. 3. The catheter will be managed by Dr. Anderson. Small Bowel X-Ray 08/17/25 13:42 Impression: 1: Incomplete small bowel study with delayed passage of contrast into the distal small bowel. Study terminated due to complications with patient. Proximal small bowel dilated with multiple dilated distal loops of small bowel. Findings compatible with obstruction. Chest X-Ray 08/19/25 07:52 Impression: 1: Bibasilar airspace disease may represent pneumonia and/or atelectasis. Abdomen X-Ray 08/24/25 08:27 IMPRESSION: 1. Slight improvement in either a postoperative ileus or less likely partial small bowel obstruction. Labs Labs: Laboratory Results - last 24 hr 08/26/25 08/27/25 08/27/25 17:42 00:37 05:41 Sodium 134 L Potassium 3.8 Chloride 101 Carbon Dioxide 27 Anion Gap 6 BUN 14 Creatinine 0.90 Estim Creat Clear Calc 78 Estimated GFR > 60 Glucose 105 POC Capillary Glucose 122 H 134 H Calcium 9.2 08/27/25 08/27/25 05:58 11:04 Sodium Potassium Chloride Carbon Dioxide Anion Gap BUN Creatinine Estim Creat Clear Calc Estimated GFR Glucose POC Capillary Glucose 134 H 133 H Calcium
[2025-08-27 18:34] LABS: Hematocrit 36.7 % (42.0-52.0); Hemoglobin 11.9 g/dL (14.0-18.0); Mean Corpuscular HGB Conc 32.4 g/dl (32-36); Mean Corpuscular Hemoglobin 32.0 pg (26-34); Mean Corpuscular Volume 98.7 fl (80-100); Platelet Count Result 524 k/mm3 (150-375); Red Blood Count 3.72 M/mm3 (4.6-6.20); White Blood Count 13.0 K/mm3 (4.5-10.0)
[2025-08-27 21:44] VITALS: BP 125/66; PULSE 84; RESP 16; TEMP 36.4; O2SAT 95
[2025-08-28 06:00] VITALS: BP 121/72; PULSE 83; RESP 14; TEMP 36.8; O2SAT 95
[2025-08-28 06:28] LABS: Hematocrit 37.4 % (42.0-52.0); Hemoglobin 11.8 g/dL (14.0-18.0); Immature Granulocyte Percent A 2.0 % (0-0.5); Lymphocytes Absolute Auto 2.27 K/mm3 (0.9-3.2); Mean Corpuscular HGB Conc 31.6 g/dl (32-36); Mean Corpuscular Hemoglobin 31.5 pg (26-34); Mean Corpuscular Volume 99.7 fl (80-100); Nucleated Red Blood Cells Absolute Auto 0.000 K/mm3 (0.0-0.012); Nucleated Red Blood Cells Perc 0.0 % (0.0-0.2); Platelet Count Result 534 k/mm3 (150-375); Red Blood Count 3.75 M/mm3 (4.6-6.20); White Blood Count 12.0 K/mm3 (4.5-10.0)
[2025-08-28] MEDS: CENTRAL LINE FLUSH 10 ML IV PUSH (06:42)
[2025-08-28 06:50] LABS: Alanine Aminotransferase 23 U/L (6-50); Albumin Level 3.7 g/dL (3.5-5.1); Alkaline Phosphatase 99 U/L (38-126); Anion Gap 9 mmol/L (4-12); Aspartate Amino Transferase 45 U/L (17-59); Bilirubin,Total 0.6 mg/dL (0.2-1.3); Blood Urea Nitrogen 13 mg/dL (9-20); Calcium 9.3 mg/dL (8.4-10.2); Carbon Dioxide 22 mmol/L (22-30); Chloride 102 mmol/L (98-107); Estimated CRCL calculation 71 ml/min; Estimated Glomerular Filt Rate > 60; Glucose 101 mg/dL (65-110); Potassium 3.5 mmol/L (3.4-5.0); Sodium 133 mmol/L (137-145); Total Protein 8.1 g/dL (6.3-8.2)
[2025-08-28 06:52] LABS: Triglycerides 386 mg/dL (<150)
[2025-08-28 07:28] LABS: CRP 3.2 mg/dL (<1.0)
[2025-08-28 09:15] VITALS: PULSE 91; O2SAT 95
[2025-08-28] MEDS: LOSARTAN POTASSIUM 100 MG TABLET PO (09:15)
--- NOTE | 2025-08-28 10:50 | PM.IMPN2 ---
Assessment and Plan Assessment and Plan (1) Obstruction of small intestine after surgical procedure: Code(s): K91.30 - Postprocedural intestinal obstruction, unspecified as to partial versus complete Status: Acute Assessment and Plan: Improving Was found to have small-bowel obstruction after extubation and transfer from ICU as he had vomiting of tube feeds overnight. Tube feeds were held and placed on management suction, surgery is on board and managing as SBO. Patient has been NPO once more, TPN was resumed. Surgery considers this may be postoperative ileus versus SBO, they have ordered KUB to assess. -management per surgery -NG tube removed, advance diet as tolerated (2) Acute respiratory failure: Code(s): J96.00 - Acute respiratory failure, unspecified whether with hypoxia or hypercapnia Status: Resolved Assessment and Plan: Acute respiratory failure likely related to anesthesia and surgery for small bowel perforation on 08/18 -patient currently on CMV mode of ventilation, peep of 5, 50% FiO2, will wean FiO2 to maintain O2 sats > 92% -continue DuoNebs -08/19: Successfully extubated, currently on 2 L nasal cannula with adequate O2 sats Continue incentive spirometry -08/20: Continues to be stable, transferred to floor. -08/21: Resolved (3) Bowel perforation: Code(s): K63.1 - Perforation of intestine (nontraumatic) Status: Resolved Assessment and Plan: 08/18: Exploratory laparotomy, small-bowel perforation, adhesiolysis, removal of pigtail catheter drain. 08/17: Patient's pigtail drain had entry contents, small-bowel follow-through with water-soluble contrast was consistent with small-bowel obstruction 08/19: Second-look laparotomy with abdominal washout -discussed with surgery, patient did have a perforation of the jejunum also had enteric contents in the peritoneal cavity -continue Zosyn (08/18) -continue micafungin(08/19) 08/20: discussed with surgery this morning, recommended starting trickle tube feeds at 10 mL/hour, hold TPN 08/21: TPN resumed as SBO has continued, and patient was not tolerating tube feeds 08/23: Surgery has requested ID consult for antifungal management of positive michael on abdominal abscess culture. 08/24: ID recommended complete antifungal and antibiotics 08/25. 08/25: Lasted antibiotics today, will discontinue tomorrow. 08/26: Antibiotics/antifungal discontinued, will continue to follow ID recommendations (4) Intra-abdominal abscess: Code(s): K65.1 - Peritoneal abscess Status: Acute Assessment and Plan: 08/16/2025: Status post percutaneous drainage by Interventional Radiology for pelvic fluid collection status post recent sigmoidectomy (CT-guided right transgluteal abscess drainage catheter placement) MERON drain in place, management per surgery (5) Protein-calorie malnutrition, severe: Code(s): E43 - Unspecified severe protein-calorie malnutrition Status: Acute Assessment and Plan: On TPN at this time, management per surgery. Patient is tolerating liquid diet (6) Status post colon resection: Code(s): Z90.49 - Acquired absence of other specified parts of digestive tract Status: Acute Assessment and Plan: 08/10/2025: Sigmoidectomy for recurring diverticulitis (7) History of DVT (deep vein thrombosis): Code(s): Z86.718 - Personal history of other venous thrombosis and embolism Status: Acute Assessment and Plan: Patient has been on Xarelto as outpatient which is currently on hold -continue prophylactic Lovenox per surgery (8) Bronchiectasis: Qualifiers: Bronchiectasis type: uncomplicated Qualified Code(s): J47.9 - Bronchiectasis, uncomplicated Code(s): J47.9 - Bronchiectasis, uncomplicated Status: Chronic Assessment and Plan: In March 2025 but had an abdominal chest x-ray and bronchiectasis on the chest CT. He followed up with Dr. Disla, the tennis ball coverer hand, who did an extensive workup along with a 6 minute walk study which she passed. The tennis ball coverer hand did find past CT scan that showed bronchiectatic changes. Patient was cleared for surgery. (9) Hypertension: Qualifiers: Hypertension type: primary hypertension Qualified Code(s): I10 - Essential (primary) hypertension Code(s): I10 - Essential (primary) hypertension Status: Chronic Assessment and Plan: Patient is on losartan 100 mg and hydrochlorothiazide 12.5 mg, hydrochlorothiazide has been increased to 25 mg -continue losartan 100 mg, hydrochlorothiazide 25 mg. BP is holding stable at this time. Plan Continue conservative management for ileus/SBO. Antihypertensive management as well. DVT prophylaxis: Lovenox SQ Stress ulcer prophylaxis: Famotidine Nutrition: TPN Medical Record Review I have reviewed the following patient records and this information was taken into consideration when formulating the assessment and plan.: previous labs, previous ER visits and previous hospitalizations Time Spent With Patient Time with patient: 15 - 25 minutes Subjective Date/time seen: 08/28/25 10:51 Interval history: Patient is a 60 year old male with a past medical history of PE, HTN, DVT, bronchiectasis, diverticulitis requiring several inpatient admissions presented to [facility] on 08/10 for an elected sigmoidectomy to avoid further episodes of diverticulitis. Patient was initially scheduled for the sigmoidectomy in March 2025 but had an abnormal chest x-ray and bronchiectasis on a chest CT. Patient followed up with tennis ball coverer hand Dr. Disla for further workup of his abnormal CT. Patient was able to pass a [address] Disla found past CT scans that showed the bronchi ectatic change had been there for many years. Patient developed a postoperative ileus versus SBO the hospitalist team was consulted to assist in medical management. 08/28/2025: Assumed Care Review of Systems Review of Systems: All systems reviewed & are unremarkable except as noted in HPI and below Exam Narrative: General: Awake, alert, in no acute distress NG tube HEENT:? Pupils equal and reactive, sclera is clear, Neck:? Supple Respiratory:? Coarse breath sounds at bases bilaterally Cardiac:? RRR Abdomen:? Soft, tender to palpation, nondistended, hypoactive bowel sounds were appreciated. Abdominal dressing in place, clean, dry and intact Extremities:? No edema, palpable pedal pulses Neuro:? Patient is awake, alert, oriented, nonfocal, answers to questions appropriately and follows simple commands Skin:? Warm and dry Psych:? Normal mentation and affect Objective Data Vital Signs Vital Signs: Vital Signs - 24 hr 08/27/25 13:35 08/27/25 20:00 08/27/25 21:44 Temperature 97.7 F 97.6 F Pulse Rate 94 84 Respiratory Rate 18 16 Blood Pressure 128/69 125/66 Pulse Oximetry 96 95 Oxygen Delivery Room Air 08/28/25 06:00 08/28/25 09:15 Temperature 98.3 F Pulse Rate 83 91 Respiratory Rate 14 Blood Pressure 121/72 Pulse Oximetry 95 95 Oxygen Delivery Room Air Intake/Output Intake/Output: Intake & Output 08/25/25 08/26/25 08/27/2507/25 23:59 23:59 23:59 23:59 Intake Total 2738.0 4184.8 1871.3 560 Output Total 1267 300 Balance 1471.0 3884.8 1871.3 560 Meds/Results Medications: Active Medications Generic Name Dose Route Start Last Admin Trade Name Freq PRN Reason Stop Dose Admin Acetaminophen 500 mg 08/25/25 08:33 Acetaminophen 500 Mg Tablet PO Q6H PRN Pain Rated 1-3 Hydrochlorothiazide 25 mg 08/26/25 09:00 08/28/25 09:15 Hydrochlorothiazide 25 Mg Tablet PO 25 mg QAM ANNETTE Administration Ibuprofen 800 mg in 200 mls @ 400 mls/hr 08/10/25 13:04 08/25/25 06:06 Caldolor 800 Mg/200 Ml IVPB 400 mls/hr Q6H PRN Administration Breakthrough Pain Rated 1-3 or NPO Losartan Potassium 100 mg 08/11/25 09:00 08/28/25 09:15 Losartan Potassium 100 Mg Tablet PO 100 mg DAILY ANNETTE Administration Morphine Sulfate 2 mg 08/24/25 23:13 08/24/25 23:30 Morphine Sulfate (*Crx) 4 Mg/Ml Inj IV PUSH 2 mg Q4H PRN Administration Pain Rated 6 or Greater Naloxone HCl 0.1 mg 08/10/25 13:04 Naloxone Hcl 0.4 Mg/Ml Vial IV PUSH Q2M PRN Opiate Reversal Ondansetron HCl 4 mg 08/10/25 13:04 08/20/25 20:15 Ondansetron Inj 4 Mg/2 Ml Vial IV PUSH 4 mg Q4H PRN Administration Nausea And Vomiting Oxycodone/Acetaminophen 1 tablet 08/25/25 08:33 08/26/25 08:38 Oxycodone/Acetaminophen (*Crx) 5-325 Mg Tablet PO 1 tablet Q4H PRN Administration Pain Rated 4-6 Rivaroxaban 20 mg 08/27/25 17:00 08/27/25 17:09 Rivaroxaban 20 Mg Tablet PO 20 mg DAILY@1700 ANNTETE Administration Sodium Chloride 10 ml 08/15/25 14:00 08/28/25 06:42 Central Line Flush IV PUSH 10 ml Q8HR ANNETTE Administration Sodium Chloride 10 ml 08/15/25 11:41 08/26/25 21:10 Central Line Flush IV PUSH 10 ml PRN PRN Administration with TPN bag changes Sodium Chloride 20 ml 08/15/25 11:41 08/27/25 05:56 Central Line Flush IV PUSH 20 ml PRN PRN Administration after blood draws Trazodone HCl 50 mg 08/10/25 13:04 Trazodone Hcl 50 Mg Tablet PO HS PRN Insomnia Radiology Results: ITS Impressions Chest CTA 08/13/25 16:42 IMPRESSION: 1. Negative for pulmonary embolism. Bilateral probable pneumonia. 2. Intra-abdominal free air possibly postoperative in nature relatively unchanged compared to the previous exam Abdomen/Pelvis CT 08/15/25 08:38 IMPRESSION: 1. Ileus and/or developing small bowel obstruction. 2. Free intraperitoneal air favoring recent postoperative change. 3. Peritonitis, with scattered ascites and interloop fluid. 4. Worrisome for cystitis, unless recent catheter manipulation. 5. Significant bibasilar atelectasis and/or airspace disease, with small left effusion. Catheter Placement CT 08/16/25 14:04 IMPRESSION: 1. Successful CT-guided right transgluteal abscess drainage. 2. 60 mL fluid was sent for aerobic and anaerobic cultures. 3. The catheter will be managed by Dr. Anderson. Small Bowel X-Ray 08/17/25 13:42 Impression: 1: Incomplete small bowel study with delayed passage of contrast into the distal small bowel. Study terminated due to complications with patient. Proximal small bowel dilated with multiple dilated distal loops of small bowel. Findings compatible with obstruction. Chest X-Ray 08/19/25 07:52 Impression: 1: Bibasilar airspace disease may represent pneumonia and/or atelectasis. Abdomen X-Ray 08/24/25 08:27 IMPRESSION: 1. Slight improvement in either a postoperative ileus or less likely partial small bowel obstruction. Labs Labs: Laboratory Results - last 24 hr 08/27/25 08/27/25 08/28/25 11:04 18:12 05:11 WBC 13.0 H 12.0 H RBC 3.72 L 3.75 L Hgb 11.9 L 11.8 L Hct 36.7 L 37.4 L MCV 98.7 99.7 MCH 32.0 31.5 MCHC 32.4 31.6 L RDW 13.7 13.5 Plt Count 524 H 534 H MPV 8.3 8.7 Immature Gran % (Auto) 2.0 H Neut % (Auto) 67.0 Lymph % (Auto) 18.9 [place] % (Auto) 7.3 Eos % (Auto) 3.4 Baso % (Auto) 1.4 H Lymph # (Auto) 2.27 [place] # (Auto) 0.9 H Eos # (Auto) 0.4 H Baso # (Auto) 0.2 H Abs Immat Gran (auto) 0.24 H Absolute Neuts (auto) 8.0 H Absolute Nucleated RBC 0.000 Nucleated RBC % 0.0 Sodium 133 L Potassium 3.5 Chloride 102 Carbon Dioxide 22 Anion Gap 9 BUN 13 Creatinine 0.99 Estim Creat Clear Calc 71 Estimated GFR > 60 Glucose 101 POC Capillary Glucose 133 H Calcium 9.3 Total Bilirubin 0.6 AST 45 ALT 23 Alkaline Phosphatase 99 C-Reactive Protein 3.2 H Total Protein 8.1 Albumin 3.7 Triglycerides 386 H Attestation: I personally reviewed all lab results Quality VTE Prophylaxis VTE prophylaxis: pharmacologic ordered -Patient's previous records reviewed on admission -ER notes reviewed in detail on admission -discussed all findings and current treatment plan with patient/Family/POA -Consultations reviewed for recommendations -Patient's disposition for safe discharge discussed with machine adjuster leader case trim -radiology imaging, EKG and test results I have personally reviewed and interpreted unless otherwise specified Dictation performed by [employer] direct speech recognition software, therefore security rep variants and typographical errors may occur. Hospitalist MIPS Advance Care Plan I have confirmed that the patient's Advanced Care Plan is present, code status is documented, or surrogate decision maker is listed in patient medical record.: Yes Medication Reconciliation I have utilized all available resources to obtain, update and review the patients current medications (includes all prescriptions, OTC, herbals, cannabis, and nutritional supplements).: Yes The patient is not eligible for med reconciliation; the patient is in a emergent medical situation where delaying treatment would jeopardize the patients health.: No
[2025-08-28 14:00] VITALS: BP 104/76; PULSE 82; RESP 14; TEMP 36.6; O2SAT 96
--- NOTE | 2025-08-28 14:09 | P.DS_ITS ---
DS: Admitting Diagnosis Discharge Date 08/28/2025 Admitting Diagnosis * diverticulitis * chronic anticoagulation * history pulmonary embolism and DVT * bronchiectasis * hypospadia and urethral stricture * hypertension DS: Discharge Diagnosis Discharge Diagnosis (1) Diverticulitis: Code(s): K57.92 - Diverticulitis of intestine, part unspecified, without perforation or abscess without bleeding Status: Acute Assessment and Plan: patient had colonoscopy at an outside facility in 2022 that showed no evidence of malignancy. He had had multiple episodes of diverticulitis and desired sigmoidectomy. (2) Status post colon resection: Code(s): Z90.49 - Acquired absence of other specified parts of digestive tract Status: Acute Assessment and Plan: Underwent hand access laparoscopic sigmoidectomy with EEA anastomosis 08/10/2022. Urology placed Anand catheter due to urethral stricture. They also placed ureteral stents prior to surgery. (3) Intra-abdominal abscess: Code(s): K65.1 - Peritoneal abscess Status: Acute Assessment and Plan: Patient noted to have pelvic hematomas that were likely to be infected. Transgluteal CT-guided percutaneous pigtail catheter drainage performed 08/16/2025. (4) Bowel perforation: Code(s): K63.1 - Perforation of intestine (nontraumatic) Status: Acute Assessment and Plan: Patient noted to have enteric content coming from pigtail catheter on 08/17/2025. He returned to surgery on 08/17/2025 for open laparotomy, repair small-bowel perforation, adhesiolysis, removal transgluteal drain. He was septic and in the ICU following this procedure. He was taken back to surgery on 08/19/2025 for second-look laparotomy and abdominal washout. No further bowel injuries or problems with the repair were noted. (5) Protein-calorie malnutrition, severe: Code(s): E43 - Unspecified severe protein-calorie malnutrition Status: Acute Assessment and Plan: Required TPN for several days while waiting for return of bowel function. (6) History of pulmonary embolism: Code(s): Z86.711 - Personal history of pulmonary embolism Status: Chronic Assessment and Plan: (7) Chronic anticoagulation: Code(s): Z79.01 - computer terminal operator (current) use of anticoagulants Status: Chronic Assessment and Plan: treated with therapeutic dose of Lovenox while NPO and then Xarelto was resumed at usual dose. (8) Hypertension: Qualifiers: Hypertension type: primary hypertension Qualified Code(s): I10 - Essential (primary) hypertension Code(s): I10 - Essential (primary) hypertension Status: Chronic (9) Urethral stricture: Qualifiers: Urethral stricture type: unspecified stricture type Urethral stricture sex-location: male urethra-unspecified Qualified Code(s): N35.919 - Unspecified urethral stricture, male, unspecified site Code(s): N35.919 - Unspecified urethral stricture, male, unspecified site Status: Chronic (10) Bronchiectasis: Qualifiers: Bronchiectasis type: uncomplicated Qualified Code(s): J47.9 - Bronchiectasis, uncomplicated Code(s): J47.9 - Bronchiectasis, uncomplicated Status: Chronic Assessment and Plan: No pulmonary complications during the hospitalization. DS: Summary Hospital Course Hospital Course: after thorough preoperative testing and evaluation, patient was prepared for surgery and taken to the operating room on 08/10/2025. Dr. Mayers, urologist, placed the Anand catheter as well as ureteral stents in the operating room prior to the surgery. Hand access laparoscopic sigmoidectomy was then performed and was uneventful. Leak test of the anastomosis was negative. Anastomosis was visualized by the surgeon using rigid proctoscopy and it also appeared satisfactory. Postoperatively, patient had more pain than expected as well as leukocytosis. CT scan showed evidence of collections of blood in the pelvis but H&H showed no significant decrease. Patient started on IV Zosyn empirically. Patient's initial leukocytosis improved but by postop day 5, there had not been return of bowel function. Postop bowel obstruction versus ileus was difficult to determine. The 2 previous pelvic fluid collections, felt to be hematomas, were thought to possibly be contributing to obstruction or delayed return of bowel function if they were infected. On 08/16/2025, CT-guided placement of a transgluteal pigtail catheter was performed. Drainage fluid appeared to be old blood although some perea opaque fluid was also noted. The day after the pigtail catheter was placed, the patient's drainage changed from old blood appearance to enteric content. Patient returned to surgery on 08/17/2025 for laparotomy and likely repair small-bowel perforation. At surgery, a tangential through and through perforation was noted on the anti mesenteric border of distal small intestine. This was repaired transversely. All adhesions were broken up and the pelvic fluid collections were drained. The pigtail catheter was removed. Patient was left on mechanical ventilator and on IV antibiotics. He went to the ICU after surgery due to respiratory failure and sepsis. On 08/19/2025, he was doing better but a second-look laparotomy with repeat abdominal washout was needed to ensure no other injury or abscess. This was performed uneventfully. The colorectal anastomosis appeared normal following both the surgery of 08/17 and 08/19/2025. The patient was started on TPN after his bowel perforation and reoperation. Cultures on the pelvic fluid collections grew Avani albicans. Infectious Disease was consulted and continued both of the antimicrobials, Zosyn and fluconazole, for another 2 days and then discontinued them. Patient took another 5 days after the 2nd look laparotomy for bowel function to return. His NG tube was removed and he was started on liquids. He was gradually advanced to solid food. His MERON drain was removed on 08/26/2025. Wound sharon were removed on 08/27/2025. His PICC line was removed on the day of discharge, 08/28/2025. He is discharged today in good condition with plans for follow-up with Dr. Anderson in about 10 days. He did not require blood transfusion throughout his hospitalization. Status at Discharge Functional status at discharge: independent ambulation Overall status at discharge: patient is progressing back to baseline Time Spent with Patient Time attestation: Total time spent providing and/or coordinating discharge services: Time spent: Less than 30 minutes DS: Data Data Completed and Pending Completed studies during hospitalization: Pending at discharge 08/10/25 09:50 Surgical [PTH] Routine Labs on day of discharge: Labs from last 24 hours 08/28/25 08/27/25 05:11 18:12 WBC 12.0 H 13.0 H RBC 3.75 L 3.72 L Hgb 11.8 L 11.9 L Hct 37.4 L 36.7 L MCV 99.7 98.7 MCH 31.5 32.0 MCHC 31.6 L 32.4 RDW 13.5 13.7 Plt Count 534 H 524 H MPV 8.7 8.3 Immature Gran % (Auto) 2.0 H Neut % (Auto) 67.0 Lymph % (Auto) 18.9 [place] % (Auto) 7.3 Eos % (Auto) 3.4 Baso % (Auto) 1.4 H Lymph # (Auto) 2.27 [place] # (Auto) 0.9 H Eos # (Auto) 0.4 H Baso # (Auto) 0.2 H Abs Immat Gran (auto) 0.24 H Absolute Neuts (auto) 8.0 H Absolute Nucleated RBC 0.000 Nucleated RBC % 0.0 Sodium 133 L Potassium 3.5 Chloride 102 Carbon Dioxide 22 Anion Gap 9 BUN 13 Creatinine 0.99 Estim Creat Clear Calc 71 Estimated GFR > 60 Glucose 101 Calcium 9.3 Total Bilirubin 0.6 AST 45 ALT 23 Alkaline Phosphatase 99 C-Reactive Protein 3.2 H Total Protein 8.1 Albumin 3.7 Triglycerides 386 H Discharge Plan Discharge Attending physician on discharge: José Luis Anderson Consulting providers: Jarrod Longoria; Imer Ybarra; Amanda Gil; Annalisa Baca; Liss Leonardo; Cindy Leong Discharging Clinician: José Luis Anderson Anticipated Discharge Date/Time: 08/28/25 14:02 Patient Disposition: Home Activity: may shower, no straining and as tolerated Diet: regular Wound Care Instructions: incision open to air Discharge Instructions: * Ambulate 3-4 x per day and as tolerated. * No lifting over 15-20lbs. * May bathe or shower. OK to shower or bathe over left lower abdominal dressing next 2 days. * Stairs are OK. * May drive a car in 3 days. * Remove left lower abdominal dressing and leave it off on Friday or Friday this week. Patient Instructions: Antibiotic Form, Rivaroxaban (By mouth), Diverticulitis (DC) Patient Language: Lithuanian Stand Alone Forms: General Discharge Information Follow-up/Referrals: José Luis Anderson MD [Physician, General Surgery] - 09/05/25 Referral Note: Call Dr. Anderson's office and make appointment for 09/05/25 Discharge Medications: New oxycodone-acetaminophen [Percocet] 5-325 mg tablet 0.5 - 1 tablet PO Q4H PRN (Reason: pain) Qty: 10 0RF Continued umeclidinium-vilanterol [Anoro Ellipta] 62.5-25 mcg/actuation blister with device 1 inh inhalation Q24H 90 Days Qty: 180 1RF Rx Instructions: One inhalation same time daily. albuterol sulfate [Ventolin HFA] 90 mcg/actuation HFA aerosol inhaler 2 inh inhalation Q6H PRN (Reason: shortness of breath) 30 Days Qty: 8.5 3RF Xarelto 20 mg tablet 20 mg PO DAILY losartan-hydrochlorothiazide 100-12.5 mg tablet 1 tablet PO DAILY Patient Comments: QAM tramadol 50 mg tablet 50 mg PO BID PRN (Reason: pain) Discontinued metronidazole 500 mg tablet 500 mg PO .COMPLEX Qty: 3 0RF Rx Instructions: 500 mg orally Take 1 tablet at 1pm, 2pm and 11pm the day before surgery.; ciprofloxacin HCl 500 mg tablet 500 mg PO .COMPLEX Qty: 1 0RF Rx Instructions: 500 mg orally Take 1 tablet at 1:00pm the day before surgery.; Date of admission: 08/10/25 13:04 Primary Care Provider: PHYSICIAN,TYPE MAPPER Admitting Provider: José Luis Anderson Attending physician on admission: José Luis Anderson Condition: Improved
--- OUTSIDE RECORDS SUMMARY | 2025-08-30 06:14 | XMS_ITS | Clinical Summary ---
Author Organization [facility] Address [address] [facility] [place] [address] Care Team Providers Care Ocean Lifeguard Specialist Name Role Phone Meche Kinney MD Primary Care Provider [phone] Source Comments [facility],non-owned Affiliates and Associated Physician Practices is amultiple site organization consisting of ambulatory clinics and hospital sitesin [place], [place], [place] and [place]. This disclosure is being madepursuant to the Care Everywhere program and may not contain all information available regarding this patient. Last updated 18.[facility] Allergies No known active allergies Medications * Be aware that medications may not be up to date on this document. Alwaysverify current medications with the patient. HYDROcodone-acet aminophen ([place]) 5-325 MG tablet Take 1 (one) tablet [...] Description 06/16/2025 3:10 PM CDT Office Visit [address] [address] Dillon Sandoval MD Acute saddle pulmonary embolism, unspecified whether acute cor pulmonale present (HCC) (Primary Dx); DIANA (obstructive sleep apnea); Anticoagulation management encounter; Erythrocytosis 06/01/[address] [address] Dillon Sandoval MD MEDICATION REFILL from Last [...] Recorded Patient Health Questionnaire-2 Score 0 06/16/2025 [facility] of Occupat ional Health - Occupational Stress [...] place to sleep or slept in a longterm (including now)? No 05/07/2023 Sex and Gender [...] Info) Description 06/20/2026 1:40 PM CDT Documentation [address] [address] 06/20/2026 1:50 PM CDT Office Visit [facility] [address] [address] Dillon Sandoval MD [address] [place] [phone] Health Maintenance Due Date Last Done [...] - 06/17/2025 8:12 AM CDT Performed at: [address] [place] [id number] Gaming Cashier: Prasanna Valentino PhD, Phone: [phone] us Dillon Sandoval MD LAB - CHEMISTRY ORDERABLES Fi nal Result [facility] INSURANCE BILL [address] [place] [address] * (ABNORMAL) CBC W AUTO DIFFERENTIAL (CANCER CARE) (06/16/2025 2:36 PM CDT) [facility] WBC 9.8 4.4 - 10.7 x10E9/L 06/16/2025 [...] ORDERABLES F inal Result Performing Organization Address City/State/[facility] Co de Phone Number [facility] CC [facility] STM [address] from Last 3 Months Insurance [facility] SELF PAY NO INSURANCE Member Subscriber Plan / Payer (Ef fective for All Dates) Name:Rosario Kearns Member ID:Not on file Relation to Subscriber:Not on file Name:ROSARIO KEARNS Subscriber ID:Not on file (Home) Address: [address] [place] [id number] Payer ID:Not on file Group ID:Not on file Type:Self Pay Address: [place], [place] Advance Directives * Full Code (Latest Code Status on File) Date Activated Date Inactivated Comments 05/07/2023 4:02 PM 05/10/2023 2:56 PM Care Teams Ocean Lifeguard Specialist Relationship Specialty Start Date End Date Meche Kinney MD [address] [place] [address] PCP - General Internal Medicine 05/07/23
--- OUTSIDE RECORDS SUMMARY | 2025-08-30 06:14 | XMS_ITS | Clinical Summary ---
Author Organization [facility] Address [address] [place] [address] Phone Care Team Providers Care Pest Control Pilot Name Role Phone Unavailable Primary Care Provider [...] Comments Blood Pressure 138/82 10/10/2023 9:38 AM TURBINE ATTENDANT Pulse 82 10/10/2023 9:38 AM TURBINE ATTENDANT Temperature - - Respiratory Rate 20 10/10/2023 9:38 AM TURBINE ATTENDANT Oxygen Saturation 98% 10/10/2023 9:38 AM TURBINE ATTENDANT Inhaled Oxygen Concentration - - Weight 81.6 kg (180 lb) 10/10/2023 9:38 AM TURBINE ATTENDANT Height 180.3 cm (5' 11) 10/10/2023 9:38 AM TURBINE ATTENDANT Body Mass Index 25.1 10/10/2023 9:38 AM TURBINE ATTENDANT Plan of Treatment Health Maintenance Due Date [...]
== END 2025-08-28 14:50 | disposition home or self-care (01) | DRG 230 ==
LOC: ANH3MEDSUR 08-12 11:37 → ANHICU 08-18 00:49 → ANH3MEDSUR 08-28 08:19 → ANHICU 08-30 06:10 → ANHIMU 08-30 06:10
PROVIDERS: Internal Medicine; Nurse Practitioner Adult Health; Physician Assistant; Radiology Diagnostic Radiology; Student in an Organized Health Care Education/Training Program; Surgery; Urology; Admitting Provider Surgery; Visit Provider Surgery
PROC: 0D1E4Z4 Bypass Large Intestine to Cutaneous, Percutaneous Endoscopic Approach (ICD-10-PCS; principal; 2025-08-10 07:30)
PROC: 0W9G30Z Drainage of Peritoneal Cavity with Drainage Device, Percutaneous Approach (ICD-10-PCS; CPT 75989; principal; 2025-08-16 11:00)
PROC: 0DQA0ZZ Repair Jejunum, Open Approach (ICD-10-PCS; CPT 49000; principal; 2025-08-17 15:30)
PROC: 0WJG0ZZ Inspection of Peritoneal Cavity, Open Approach (ICD-10-PCS; CPT 49000; principal; 2025-08-19 09:30)
DX: K57.32 Diverticulitis of large intestine without perforation or abscess without bleeding (principal); T81.44XA Sepsis following a procedure, initial encounter; K91.71 Accidental puncture and laceration of a digestive system organ or structure during a digestive system procedure; K91.89 Other postprocedural complications and disorders of digestive system; J95.821 Acute postprocedural respiratory failure; K65.1 Peritoneal abscess; K56.7 Ileus, unspecified; K63.1 Perforation of intestine (nontraumatic); E43 Unspecified severe protein-calorie malnutrition; B37.89 Other sites of candidiasis; J47.9 Bronchiectasis, uncomplicated; I10 Essential (primary) hypertension; K92.1 Melena; N35.919 Unspecified urethral stricture, male, unspecified site; R11.10 Vomiting, unspecified; Z20.822 Contact with and (suspected) exposure to COVID-19; Q54.0 Hypospadias, balanic; Z86.718 Personal history of other venous thrombosis and embolism; Z79.01 Long term (current) use of anticoagulants; Z86.711 Personal history of pulmonary embolism; Z68.25 Body mass index [BMI] 25.0-25.9, adult
CPT/HCPCS: 36415; 36569; 36600; 49406; 71045; 71275; 74018; 74019; 74177; 74250; 80048; 80053; 81001; 82375; 82805; 82948; 83050; 83605; 83735; 84100; 84145; 84466; 84478; 84484; 85018; 85025; 85027; 85610; 85730; 86140; 86850; 86900; 86901; 87040; 87070; 87075; 87081; 87205; 87449; 87581; 87637; 87641; 88307; 93005; 94002; 94003; 94640; 97110; 97116; 97162; 97165; 97530; 97535; J0690; A9270; C1729; C1751; C1758; C1769; J0616; J0696; J1100; J1171; J1450; J1650; J1741; J1815; J1836; J1885; J2003; J2248; J2250; J2270; J2405; J2543; J2704; J3010; J3475; J3480; J7030; J7040; J7050; J7120; P9047; Q9967

== ENCOUNTER 2025-09-05 10:02 | Outpatient (CLI) | payer OTHER, SELFPAY ==
[2025-09-05 10:37] LABS: Hematocrit 41.1 % (42.0-52.0); Hemoglobin 13.5 g/dL (14.0-18.0); Immature Granulocyte Percent A 0.5 % (0-0.5); Lymphocytes Absolute Auto 2.04 K/mm3 (0.9-3.2); Mean Corpuscular HGB Conc 32.8 g/dl (32-36); Mean Corpuscular Hemoglobin 31.8 pg (26-34); Mean Corpuscular Volume 96.7 fl (80-100); Nucleated Red Blood Cells Absolute Auto 0.000 K/mm3 (0.0-0.012); Nucleated Red Blood Cells Perc 0.0 % (0.0-0.2); Platelet Count Result 328 k/mm3 (150-375); Red Blood Count 4.25 M/mm3 (4.6-6.20); White Blood Count 10.2 K/mm3 (4.5-10.0)
[2025-09-05 11:01] LABS: Anion Gap 7 mmol/L (4-12); Blood Urea Nitrogen 14 mg/dL (9-20); Calcium 9.6 mg/dL (8.4-10.2); Carbon Dioxide 27 mmol/L (22-30); Chloride 99 mmol/L (98-107); Estimated Glomerular Filt Rate 43; Glucose 124 mg/dL (65-110); Potassium 4.3 mmol/L (3.4-5.0); Sodium 133 mmol/L (137-145)
== END 2025-09-05 10:03 | disposition home or self-care (01) ==
LOC: ANHLAB 10:03
PROVIDERS: Visit Provider Surgery
DX: E87.6 Hypokalemia (principal); D64.9 Anemia, unspecified
CPT/HCPCS: 36415; 80048; 85025

== ENCOUNTER 2025-09-12 11:02 | Outpatient (CLI) | payer OTHER, SELFPAY ==
[2025-09-12 11:51] LABS: Anion Gap 9 mmol/L (4-12); Blood Urea Nitrogen 10 mg/dL (9-20); Calcium 8.9 mg/dL (8.4-10.2); Carbon Dioxide 27 mmol/L (22-30); Chloride 98 mmol/L (98-107); Estimated Glomerular Filt Rate > 60; Glucose 113 mg/dL (65-110); Potassium 3.7 mmol/L (3.4-5.0); Sodium 134 mmol/L (137-145)
--- OUTSIDE RECORDS SUMMARY | 2025-09-12 12:54 | XMS_ITS | Clinical Summary ---
Author Organization [facility] Address [address] [facility] [place] [address] Care Team Providers Care Accountant Systems Name Role Phone Meche Kinney MD Primary Care Provider [phone] Source Comments [facility],non-owned Affiliates and Associated Physician Practices is amultiple site organization consisting of ambulatory clinics and hospital sitesin [place], [place], [place] and [place]. This disclosure is being madepursuant to the Care Everywhere program and may not contain all information available regarding this patient. Last updated 18.[facility] Allergies No known active allergies Medications * Be aware that medications may not be up to date on this document. Alwaysverify current medications with the patient. HYDROcodone-acet aminophen ([place]) 5-325 MG tablet Take 1 (one) tablet [...] Description 06/16/2025 3:10 PM CDT Office Visit [facility] [address] [facility] [address] [place] [address] Dillon Sandoval MD Acute saddle pulmonary embolism, unspecified whether acute cor pulmonale present (HCC) (Primary Dx); DIANA (obstructive sleep apnea); Anticoagulation management encounter; Erythrocytosis from Last 3 Months Family History Medical [...] Recorded Patient Health Questionnaire-2 Score 0 06/16/2025 [facility] of Occupat ional Health - Occupational Stress [...] Info) Description 06/20/2026 1:40 PM CDT Documentation [address] [address] 06/20/2026 1:50 PM CDT Office Visit [address] [address] Dillon Sandoval MD [address] [place] [phone] Health Maintenance Due Date Last Done Comments [...] - 06/17/2025 8:12 AM CDT Performed at: [address] [place] [id number] Supervisor Hard Candy: Prasanna Valentino PhD, Phone: [phone] Dillon Sandoval MD LAB - CHEMISTRY ORDERABLES nal Result [facility] INSURANCE BILL [address] [place] [address] * (ABNORMAL) CBC W AUTO DIFFERENTIAL (CANCER CARE) (06/16/2025 2:36 PM CDT) [facility] WBC 9.8 4.4 - 10.7 x10E9/L 06/16/2025 [...] ORDERABLES F inal Result Performing Organization Address City/State/[facility] Co de Phone Number [facility] [address] from Last 3 [place] [address] [facility] SELF PAY NO INSURANCE Member Subscriber Plan / Payer (Ef fective for All Dates) Name:Rosario Kearns Member ID:Not on file Relation to Subscriber:Not on file Name:ROSARIO KEARNS Subscriber ID:Not on file (Home) Address: [address] [place] [address] [place] [address] Payer ID:Not on file Group ID:Not on file Type:Self Pay Address: [place], [place] Advance Directives * Full Code (Latest Code Status on File) Date Activated Date Inactivated Comments 05/07/2023 4:02 PM 05/10/2023 2:56 PM Care Teams Accountant Systems Relationship Specialty Start Date End Date Meche Kinney MD [address] [place] [address] PCP - General Internal Medicine 05/07/23
--- OUTSIDE RECORDS SUMMARY | 2025-09-12 12:54 | XMS_ITS | Clinical Summary ---
Author Organization [facility] Address [address] [place] [address] Phone Care Team Providers Care Machine Tool Operator Name Role Phone Unavailable Primary Care Provider [...] Comments Blood Pressure 138/82 10/10/2023 9:38 AM OIL OPERATOR Pulse 82 10/10/2023 9:38 AM OIL OPERATOR Temperature - - Respiratory Rate 20 10/10/2023 9:38 AM OIL OPERATOR Oxygen Saturation 98% 10/10/2023 9:38 AM OIL OPERATOR Inhaled Oxygen Concentration - - Weight 81.6 kg (180 lb) 10/10/2023 9:38 AM OIL OPERATOR Height 180.3 cm (5' 11) 10/10/2023 9:38 AM OIL OPERATOR Body Mass Index 25.1 10/10/2023 9:38 AM OIL OPERATOR Plan of Treatment Health Maintenance Due Date Last Done Comments Hepatitis C Virus (HCV) Screening 1965 TdaP Immunization 1964 Cologuard 2009 Colonoscopy 2009 Colorectal Cancer Screening 2009 Immunochemical Fecal Occult Blood 2009 Pneumococcal Immunization (5 0+ years) (1 of 1 - PCV) 2014 Zoster Immunization (1 of 2) 2014 PSA Discussion 2019 Influenza Immunization (#1) 2025 07/02/2017 SARS-COV-2 Immunization ( season) 2025 04/24/2021, 03/27/2021 Respiratory Syncytial Virus (RSV) Immunization (Adult) (1 - 1-dose 75+ series) 2039 Hepatitis B Immunization Aged Out No longer eligible based on patient's age to complete this topic Human Papillomavirus (HPV) Immunization (No Doses Required) Completed Meningococcal Immunization (ACWY) Aged Out No longer eligible b ased on patient's age to complete this topic Rotavirus Immunization Aged Out No lo nger eligible based on patient's age to complete this topic Insurance MEDICAID [facility]
== END 2025-09-12 11:03 | disposition home or self-care (01) ==
PROVIDERS: Visit Provider Surgery
DX: N17.9 Acute kidney failure, unspecified (principal)
CPT/HCPCS: 36415; 80048

== ENCOUNTER 2025-09-19 11:05 | Outpatient (CLI) | payer OTHER, SELFPAY ==
[2025-09-19 11:28] LABS: Hematocrit 40.6 % (42.0-52.0); Hemoglobin 13.5 g/dL (14.0-18.0); Immature Granulocyte Percent A 0.4 % (0-0.5); Lymphocytes Absolute Auto 1.86 K/mm3 (0.9-3.2); Mean Corpuscular HGB Conc 33.3 g/dl (32-36); Mean Corpuscular Hemoglobin 31.9 pg (26-34); Mean Corpuscular Volume 96.0 fl (80-100); Nucleated Red Blood Cells Absolute Auto 0.000 K/mm3 (0.0-0.012); Nucleated Red Blood Cells Perc 0.0 % (0.0-0.2); Platelet Count Result 265 k/mm3 (150-375); Red Blood Count 4.23 M/mm3 (4.6-6.20); White Blood Count 10.1 K/mm3 (4.5-10.0)
--- OUTSIDE RECORDS SUMMARY | 2025-09-19 11:48 | XMS_ITS | Clinical Summary ---
Author Organization [facility] Address [address] [facility] [place] [place] [address] Care Team Providers Care Agricultural Systems Specialist Name Role Phone Meche Kinney MD Primary Care Provider [phone] Source Comments [facility],non-owned Affiliates and Associated Physician Practices is amultiple site organization consisting of ambulatory clinics and hospital sitesin [place], [place], [place] and [place]. This disclosure is being madepursuant to the Care Everywhere program and may not contain all information available regarding this patient. Last updated 18.[facility] Allergies No known active allergies Medications * Be aware that medications may not be up to date on this document. Alwaysverify current medications with the patient. HYDROcodone-acet aminophen ([place]) 5-325 MG tablet Take 1 (one) tablet [...] Recorded Patient Health Questionnaire-2 Score 0 06/16/2025 [facility] of Occupat ional Health - Occupational Stress [...] place to sleep or slept in a group home (including now)? No 05/07/2023 Sex and Gender [...] Info) Description 06/20/2026 1:40 PM CDT Documentation [address] [address] 06/20/2026 1:50 PM CDT Office Visit [address] [address] Dillon Sandoval MD [address] [place] [phone] Health Maintenance Due Date Last Done [...] pulmonale present (HCC) from Last 3 Months or Most Recently Relevant to Health Maintenance Results * (ABNORMAL) COMPREHENSIVE METABOLIC PANEL (06/16/2025 [...] PM CDT 06/16/2025 Comment:Blood Release to pat francheska Prado [facility] INSURANCE BILL - 06/17/2025 8:12 AM CDT Performed at: [address] [id number] Waste Disposal Leakage Tester: Prasanna Valentino PhD, Phone: [phone] Dillon Sandoval MD LAB - CHEMISTRY ORDERABLES Fi nal Result Performing Organization Address City/State/[facility] Co de Phone Number [facility] INSURANCE BILL [address] [place] [address] from Last 3 Months or Most Recently Relevant to Health Maintenance Insurance [facility] SELF PAY NO INSURANCE Member Subscriber Plan / Payer (Ef fective for All Dates) Name:Rosario Kearns Member ID:Not on file Relation to Subscriber:Not on file Name:ROSARIO KEARSN Subscriber ID:Not on file (Home) Address: [address] [place] [address] Payer ID:Not on file Group ID:Not on file Type:Self Pay Address: [place], [place] Advance Directives * Full Code (Latest Code Status on File) Date Activated Date Inactivated Comments 05/07/2023 4:02 PM 05/10/2023 2:56 PM Care Teams Agricultural Systems Specialist Relationship Specialty Start Date End Date Meche Kinney MD [address] [place] [address] PCP - General Internal Medicine 05/07/23
--- OUTSIDE RECORDS SUMMARY | 2025-09-19 11:48 | XMS_ITS | Clinical Summary ---
Author Organization [facility] Address [address] [place] [address] Phone Care Team Providers Care Blind Aide Name Role Phone Unavailable Primary Care Provider [...] Comments Blood Pressure 138/82 10/10/2023 9:38 AM TOOL GRINDER SET UP OPERATOR GEAR Pulse 82 10/10/2023 9:38 AM TOOL GRINDER SET UP OPERATOR GEAR Temperature - - Respiratory Rate 20 10/10/2023 9:38 AM TOOL GRINDER SET UP OPERATOR GEAR Oxygen Saturation 98% 10/10/2023 9:38 AM TOOL GRINDER SET UP OPERATOR GEAR Inhaled Oxygen Concentration - - Weight 81.6 kg (180 lb) 10/10/2023 9:38 AM TOOL GRINDER SET UP OPERATOR GEAR Height 180.3 cm (5' 11) 10/10/2023 9:38 AM TOOL GRINDER SET UP OPERATOR GEAR Body Mass Index 25.1 10/10/2023 9:38 AM TOOL GRINDER SET UP OPERATOR GEAR Plan of Treatment Health Maintenance Due Date [...] age to complete this topic Insurance MEDICAID [facility] PL[facility]
[2025-09-19 11:50] LABS: Anion Gap 9 mmol/L (4-12); Blood Urea Nitrogen 8 mg/dL (9-20); Calcium 9.1 mg/dL (8.4-10.2); Carbon Dioxide 29 mmol/L (22-30); Chloride 98 mmol/L (98-107); Estimated Glomerular Filt Rate > 60; Glucose 122 mg/dL (65-110); Potassium 3.6 mmol/L (3.4-5.0); Sodium 136 mmol/L (137-145)
== END 2025-09-19 11:06 | disposition home or self-care (01) ==
LOC: ANHLAB 11:08
PROVIDERS: Visit Provider Surgery
DX: N17.9 Acute kidney failure, unspecified (principal)
CPT/HCPCS: 36415; 80048; 85025